=== PATIENT | female | born 1935 | race Caucasian/White ===

== ENCOUNTER 2017-01-17 18:05 | Inpatient (IN) | payer MEDICARE, OTHER ==
[2017-01-17 18:05] VITALS: BMI 20.8
[2017-01-17] MEDS ORDERED: (Novolin R) Insulin Human Regular 100 units/ml vial IV STA (19:17)
[2017-01-17 19:24] LABS: BASO # 0.1 K/uL (0.0-0.2); BASO % 2.1 % (0.0-2.0); EOS # 0.1 K/uL (0.0-0.7); EOS % 2.5 % (0.0-4.0); LYMPH # 1.3 K/uL (1.0-4.3); LYMPH % 25.8 % (20.0-40.0); MEAN CORPUSCULAR HEMOGLOBIN 26.1 pg (27.0-31.0); MEAN CORPUSCULAR HGB CONC 32.5 g/dL (33.0-37.0); MEAN PLATELET VOLUME 7.7 fL (7.2-11.7); MONO # 0.3 K/uL (0.0-0.8); MONO % 6.5 % (0.0-10.0); NEUT # 3.1 K/uL (1.8-7.0); NEUT % 63.1 % (50.0-75.0); NRBC % 0.1 % (0.0-2.0); RBC 4.76 Mil/uL (3.80-5.20); RED CELL DISTRIBUTION WIDTH 14.7 % (11.5-14.5); WHITE BLOOD COUNT 4.9 K/uL (4.8-10.8)
[2017-01-17 19:27] LABS: HEMOGLOBIN 12.4 g/dL (11.0-16.0); MEAN CELL VOLUME 80.6 fL (81.0-99.0)
[2017-01-17] MEDS ORDERED: (Novolin R) Insulin Human Regular 100 units/ml vial ONE (19:33)
--- NOTE | 2017-01-17 19:36 | C.PDOC ---
History Of Present Illness 81 year old female [place] [facility] for a complaint of vague chest pain and vomiting. Patient has a Hx of CVA and is disoriented to person at baseline. Denies fever or SOB. Time Seen by Provider: 01/17/17 19:08 Chief Complaint (Nursing): Chest Pain History Per: Patient History/Exam Limitations: no limitations Onset/Duration Of Symptoms: Hrs Current Symptoms Are (Timing): Still Present Associated Symptoms: Nausea, Other (Vomiting) Modifying Factors: None Exacerbating Factors: None Alleviating Factors: None Recent travel outside of the [place]: No Past Medical History Reviewed: Historical Data, Nursing Documentation, Vital Signs Vital Signs: Last Vital Signs Temp 98.2 F 01/17/17 19:49 Pulse 121 H 01/17/17 19:49 Resp 16 01/17/17 19:49 BP 118/72 01/17/17 19:49 Pulse Ox 97 01/17/17 19:49 - Medical History PMH: Anxiety, Atrial Fibrillation, Depression, Diabetes, Fractures (Left Tibia) , Gastritis, HTN, Hypothyroidism, Seizures - [facility] Procedures INSERTION OF INFUSION DEV INTO R SUBCLAV VEIN, PERC APPROACH (12/08/14) REPOSITION RIGHT TIBIA, EXTERNAL APPROACH (11/04/14) Family History: States: Unknown Family Hx - Social History Hx Tobacco Use: No Hx Alcohol Use: No Hx Substance Use: No - Immunization History Hx Tetanus Toxoid Vaccination: No Hx Influenza Vaccination: No Hx Pneumococcal Vaccination: No Review Of Systems Constitutional: Negative for: Fever, Chills Cardiovascular: Positive for: Chest Pain Gastrointestinal: Positive for: Vomiting Physical Exam - Physical Exam Appears: Non-toxic, Other (Elderly, Pleasant, Smiling, Thin) Skin: Normal Color, Warm, Dry Head: Atraumatic, Normacephalic Eye(s): bilateral: Normal Inspection Oral Mucosa: Moist Chest: Symmetrical, No Tenderness Cardiovascular: Rhythm Regular Respiratory: Normal Breath Sounds, No Rales, No Rhonchi, No Wheezing Gastrointestinal/Abdominal: Soft, No Tenderness Extremity: Other (Contracted legs) Disoriented To: Person ED Course And Treatment - Laboratory Results Result Diagrams: 01/17/17 19:21 01/17/17 19:21 Lab Interpretation: Abnormal (elev glu, trop neg.) ECG: Interpreted By Me ECG Rhythm: Sinus Tachycardia ECG Interpretation: Abnormal Rate From EC O2 Sat by Pulse Oximetry: 97 Pulse Ox Interpretation: Normal - Radiology CXR: Interpreted by Me CXR Interpretation: Yes: Infiltrates (+LLL) Progress Note: EKG, blood work, CXR, and urinalysis ordered. Insulin administered. Dr. Love advised at 19:15 and 1999 Reevaluation Time: 20:02 Reassessment Condition: Improved Medical Decision Making Medical Decision Making: elev glu, ? LLL PNA, tachycardia with normal trop Disposition Doctor Will See Patient In The: Hospital Counseled Patient/Family Regarding: Studies Performed, Diagnosis - Disposition Disposition: HOSPITALIZED Disposition Time: 20:03 Condition: GOOD Forms: [facility] (Macedonian) - Clinical Impression Clinical Impression: Chest discomfort, Diabetes mellitus, insulin dependent (IDDM), uncontrolled, Pneumonia - Scribe Statement The provider has reviewed the documentation as recorded by the Scribbridgette Dailey All medical record entries made by the Scribe were at my direction and personally dictated by me. I have reviewed the chart and agree that the record accurately reflects my personal performance of the history, physical exam, medical decision making, and the department course for this patient. I have also personally directed, reviewed, and agree with the discharge instructions and disposition.
[2017-01-17 19:46] LABS: ALB/GLOB RATIO 0.8 (1.0-2.1); ALBUMIN 3.9 g/dL (3.5-5.0); ALT/SGPT 45 U/L (9-52); AST/SGOT 26 U/L (14-36); BLOOD UREA NITROGEN 20 mg/dL (7-17); CALCIUM 8.7 mg/dl (8.6-10.4); GFR AFRICAN-AMERICAN > 60; GFR NON-AFRICAN AMERICAN > 60
[2017-01-17 19:50] LABS: B-TYPE NATRIURETIC PEPTIDE 1930 pg/mL (0-900)
[2017-01-17] MEDS ORDERED: cefTRIAXone IV 1 gm in Dextros 50 ML IV ONE (19:57)
[2017-01-17] MEDS ORDERED: Azithromycin 500 MG in Sodium Chloride 0.9% 250 ML IV STA (19:57)
[2017-01-17] MEDS ORDERED: cefTRIAXone IV 1 gm in Dextros 50 ML IVPB ONE (21:00)
[2017-01-17 22:12] LABS: URINE BACTERIA MANY (<OCC); URINE BILIRUBIN NEGATIVE (NEGATIVE); URINE BLOOD 2+ (NEGATIVE); URINE CLARITY Turbid (Clear); URINE COLOR Yellow (YELLOW); URINE GLUCOSE (UA) 3+ mg/dL (Normal); URINE LEUKOCYTE ESTERASE 2+ Leu/uL (Negative); URINE NITRATE NEGATIVE (NEGATIVE); URINE PROTEIN 2+ mg/dL (NEGATIVE); URINE UROBILINOGEN NORMAL mg/dL (0.2-1.0)
[2017-01-17] MEDS: (Novolin R) Insulin Human Regular 100 units/ml vial SC SCH (23:30)
[2017-01-17] MEDS: Sodium Chloride 0.9% 1,000 ML IV SCH (23:55)
[2017-01-18] MEDS: Levothyroxine 25 MCG TAB PO SCH (05:41)
[2017-01-18] MEDS: (Novolin R) Insulin Human Regular 100 units/ml vial SC SCH ×4 (08:02→23:43)
--- NOTE | 2017-01-18 08:10 | RAD ---
PROCEDURE: CHEST RADIOGRAPH, 1 VIEW HISTORY: Shortness of breath COMPARISON: 09/23/2015 FINDINGS: LUNGS: Mild patchy increased markings at the left lung base. Clinical correlation. Diffuse chronic interstitial lung markings. Mild nodularity again noted at the lateral aspect of the right midlung zone. Right hilar prominence. Biapical pleural thickening. Right paratracheal prominence may represent prominent vasculature. PLEURA: As above. CARDIOVASCULAR: Calcification at the aortic knob. OSSEOUS STRUCTURES: Rib deformities bilaterally. VISUALIZED UPPER ABDOMEN: Prominent vasculature. Normal. OTHER FINDINGS: None. IMPRESSION: Mild patchy increased markings at the left lung base. Clinical correlation. Diffuse chronic interstitial lung markings. Mild nodularity again noted at the lateral aspect of the right midlung zone. Right hilar prominence. Biapical pleural thickening. Right paratracheal prominence may represent prominent vasculature.
[2017-01-18] MEDS: (Lantus) Insulin Glargine, Recombinant SC SCH ×2 (10:06→17:00)
[2017-01-18] MEDS: Enoxaparin 40 mg Syringe SC SCH ×2 (10:08→12:48)
[2017-01-18] MEDS: Azithromycin 500 MG in Sodium Chloride 0.9% 250 ML IVPB SCH (12:49)
[2017-01-18] MEDS: Sodium Chloride 0.9% 1,000 ML IV SCH (14:50)
[2017-01-18] MEDS ORDERED: Levalbuterol 0.63 MG/3 ML Inhal Soln UD INH ONE (15:40)
[2017-01-18] MEDS ORDERED: Etomidate 20 mg/10ml Inj IV ONE (16:13)
[2017-01-18] MEDS ORDERED: Succinylcholine Chloride 20 mg/ml Syr (5 ml) IV STA (16:14)
--- NOTE | 2017-01-18 16:14 | RAD ---
HISTORY: chest june COMPARISON: 01/17/2017 FINDINGS: LUNGS: Chronic interstitial lung disease suggested in overall diffuse interstitial markings diffusely increased. No consolidation PLEURA: No significant pleural effusion identified, no pneumothorax apparent. CARDIOVASCULAR: Mild cardiomegaly. Right hilar and right peritracheal soft tissues blending overall increased - probably in part technical given the less conspicuous appearance on yesterday's exam Thoracic aortic calcifications with tortuosity an similar OSSEOUS STRUCTURES: Generalized osteopenia. Right glenohumeral joint deformity prior right joint here excluded on prior study VISUALIZED UPPER ABDOMEN: Normal. OTHER FINDINGS: None. IMPRESSION: Chronic interstitial lung disease -overall interstitial markings increased since recent exam Interval increased interstitial pulmonary edema and/or changes due to technical differences. No dense consolidation Right paratracheal / blending right hilar soft tissue fullness -accentuated since yesterday's exam - accentuation attributed to technical differences. . Underlying pathology here still possible. No CT chest for correlation noted Right shoulder deformity/arthrosis
[2017-01-18 16:22] LABS: BASO # 0.2 K/uL (0.0-0.2); BASO % 1.1 % (0.0-2.0); EOS # 0.4 K/uL (0.0-0.7); HEMOGLOBIN 12.5 g/dL (11.0-16.0); LYMPH # 11.6 K/uL (1.0-4.3); LYMPH % 55.4 % (20.0-40.0); MEAN CELL VOLUME 81.1 fL (81.0-99.0); MEAN PLATELET VOLUME 7.7 fL (7.2-11.7); MONO # 1.3 K/uL (0.0-0.8); NEUT # 7.5 K/uL (1.8-7.0); NEUT % 35.5 % (50.0-75.0); NRBC % 0.1 % (0.0-2.0); RBC 4.8 Mil/uL (3.80-5.20); RED CELL DISTRIBUTION WIDTH 15.2 % (11.5-14.5)
--- NOTE | 2017-01-18 16:49 | PCM.ANES ---
Anesthesia Emergent Intubation - Diagnosis Working Diagnosis:: pulmonary edema - Consult Reason for Consult:: intubation - Intubation Attempts Previous Number of Intubation Attempts:: 0 By:: Daron Alba - Pre-Intubation Vital Signs Blood Pressure: 177/106 Heart Rate: 110 O2 Sat: 82 Oxygen Delivery Method: Non-Rebreather Intubation Meds Given: Etomidate - Airway Management Oropharyngeal Area Suctioned: Yes Inhalation: No Rapid Sequence: Yes Cricoid Pressure: Yes Possible Aspiration: No - Method of Intubation Intubation Method: Oral ETT ETT Size: 7.0 Lipline@: 21 Easy: No (atraumatic) Atramatic: Yes - Intubation Devices Brooks Blade Size Used: 3 Alysha Forcepts Used: No Veteran Scope Used: No Fiber Optic Scope: No - Placement Confirmation Breath Sounds Present & Equal Bilaterally: Yes Gurgling Sounds Not Audible at Epigastrum: Yes Positive EtCO2: Yes Portable CXR: No - Post-Intubation Vital Signs Blood Pressure: 150/102 Heart Rate: 102 Respiratory Rate: 12 O2 Sat: 99 FIO2: 1
[2017-01-18 16:55] LABS: ABG ALLEN TEST POS; ARTERIAL BLOOD GAS HCO3 23.1 mmol/L (21-28); ARTERIAL BLOOD GAS O2 SAT 99.5 % (95-98); ARTERIAL BLOOD GAS PCO2 45 mm/Hg (35-45); ARTERIAL BLOOD GAS PH 7.33 (7.35-7.45); ARTERIAL BLOOD GAS PO2 204 mm/Hg (80-100); ARTERIAL BLOOD GAS TCO2 25.1 mmol/L (22-28)
[2017-01-18 16:58] LABS: ALBUMIN 3.8 g/dL (3.5-5.0); ALT/SGPT 39 U/L (9-52); AST/SGOT 71 U/L (14-36); BLOOD UREA NITROGEN 20 mg/dL (7-17); CALCIUM 8.1 mg/dl (8.6-10.4); GFR AFRICAN-AMERICAN > 60; GFR NON-AFRICAN AMERICAN > 60; HDL CHOLESTEROL 72 mg/dL (30-70); MAGNESIUM 1.8 mg/dL (1.6-2.3)
[2017-01-18] MEDS: Propofol 10 mg/ml 1,000 MG/100 ML VIAL IV PRN (17:00)
[2017-01-18] MEDS ORDERED: Aztreonam 2 GM in Sodium Chloride 0.9% 100 ML IVPB ONE (17:00)
--- NOTE | 2017-01-18 17:02 | RAD ---
HISTORY: ET tube placmeent COMPARISON: 01/18/2017 at 1552 hours FINDINGS: LUNGS: The diffuse chronic interstitial lung disease is renoted prior study had suggested probable interval increased interstitial pulmonary edema. Since this prior exam 01/18/2017 1552 hours interval coalescing airspace opacity right upper lobe lab Ing infiltrate and/or atelectasis here suggested PLEURA: No significant pleural effusion identified, no pneumothorax apparent. CARDIOVASCULAR: Cardiomegaly almost to the right hilar and right paratracheal soft tissues renoted OSSEOUS STRUCTURES: Generalized osteopenia. Deformed right and left rib fractures -chronic appearing VISUALIZED UPPER ABDOMEN: Normal. OTHER FINDINGS: Interval insertion of an endotracheal tube -tip 2-3 cm cephalad to the iwona IMPRESSION: Interval insertion endotracheal tube - tip satisfactory Chronic interstitial lung markings for/disease ; element of pulmonary interstitial edema suspect for interval coalescing airspace opacity- developing infiltrate and/or atelectasis right upper lobe suggested.
[2017-01-18 17:11] LABS: LDL CHOLESTEROL 81 mg/dL (0-129)
[2017-01-18 17:19] LABS: B-TYPE NATRIURETIC PEPTIDE 2310 pg/mL (0-900); CK-MB 1.08 ng/mL (0.0-3.38)
[2017-01-18] MEDS ORDERED: Propofol 10 mg/ml Inj (20 ML) IV ONE (17:26)
[2017-01-18] MEDS ORDERED: Propofol 10 mg/ml Inj (20 ML) ONE (17:26)
--- NOTE | 2017-01-18 17:53 | PCM.RRT ---
METAL SPRAYER Nurses Assessment - Situation Date: 01/18/17 Time METAL SPRAYER was called: 15:31 METAL SPRAYER Responder Arrival Time:: 15:31 METAL SPRAYER Location:: 3T Med/Oncology METAL SPRAYER Reason for Call: O2 Saturation below 90%, Looks Sicker METAL SPRAYER Called By: RN - IV IV Inserted during METAL SPRAYER?: No - Respiratory METAL SPRAYER Delivery Method: Nasal Cannula @L/min, Non Rebreather @%, Intubated Received Nebulizer Treatments: Yes Was the Patient Ventilated with Bag/Mask 100% O2?: Yes Secretions Suctioned?: Yes Was the Patient Intubated?: Yes Was the Patient Placed on a Ventilator?: Yes - Ventilator Settings Mode: PRVC Ventilator Respiratory Rate Settin Ventilator Tidal Volume Settin PEEP/CPAP (cm H2O): 5 SAO2 %: 100 FIO2 (% Oxygen): 70 - Stat Labs Ordered METAL SPRAYER Stat Labs Ordered: TROPONIN, LACTIC ACID, ABG CPR started during METAL SPRAYER?: No - [place] Coma Scale Coma Scale Eye Opening: Spontaneous Coma Scale Motor: Obeys Commands Movement Coma Scale Verbal: Oriented Coma Scale Total: 15 - Recommendations 5) METAL SPRAYER Level of Care Recommendations: Transfer to ICU Notifications: Attending Physician, Consultations I.Reason for METAL SPRAYER - A) Acute Change in Patient: (Select all that apply): Acute change in SpO2 less Subjective: METAL SPRAYER note Patient was noted to be saturating in 80s on room air refusing nasal cannula. breathing treatment, patient saturated well in mid to high 90s. Patient had chest xray. Ocuch placed after IV Lasix. Ceftriaxone discontinued 2gm Avelox administered. IVF NS @100cc/hr discontinued. Patient started desaturating again. Patient appeared diaphoretic, continued to complain of chest pain and difficulty breathing. Patient was intubated on etomidate and anesthesia inserted the Endotracheal tube. chest xray confirmed placement. Patient transferred to ICU - Neurological Status (Select all that apply): Alert, Responsive - Respiratory Oxygen Delivery Method: Nasal Cannula @L/min, Intubated - Constitutional Appears: In Acute Distress Additional Comments: diaphoretic - Head Head Exam: NORMAL INSPECTION - Eyes Eye Exam: EOMI, Normal appearance - Respiratory Exam Respiratory Exam: Accessory Muscle Use, Prolonged Expiratory Phase, Rales, Respiratory Distress - Cardiovascular Exam Cardiovascular Exam: Tachycardia, REGULAR RHYTHM, +S1, +S2 Plan - Assessment of Findings&Treatment Plan f/u abg, lactate f/u echo f/u CECILIO q6H f/u Dr. Crowell cardiology consult IVF discontinued continue lasix on propofol drip for sedation
[2017-01-18] MEDS ORDERED: Aztreonam 2 GM in Sodium Chloride 0.9% 100 ML IVPB SCH (18:15)
--- NOTE | 2017-01-18 19:13 | PCM.PROC ---
Procedures Attestation:: I certify that I have explained the specified Operation(s) or Procedure(s), risks, benefits and reasonable alternatives to the Patient and/or other person responsible. The opportunity was given to ask questions and all questions answered - Central Line Placement Left Internal Jugular Triple Lumen Catheter Aseptic technique was employed throughout the procedure: Hand Hygiene done prior to procedure, Full sterile barriers (mask, hair cover, sterile gown, sterile gloves), Full body sterile drape, Chloraprep Antiseptic: 30 second prep for IJ or SC sites Pt. Placed on Pulse Ox Monitor: Yes Central Line Prep: Chlorhexidine-Alcohol Combination Local Anesthesia Used: Lidocaine 1% Amount of Anesthesia Used (mls): 3 Ultrasound Used for Placement: Yes Central Line Lumen Inserted: triple Central Line Length: 20 cm Post Procedure: Sutured in Place, Good Blood Return, All Ports Aspirated, Flushed, Capped, Sterile Dressing Applied Secured by: Suture Post procedure dressing: Clear vapor permeable, Chlorhexidine disc (Biopatch) Post Procedure X-Ray: Yes Patient Tolerated Procedure: Well, No Complications Immediate Complications: None
--- NOTE | 2017-01-18 19:57 | CP.PCM.CON ---
<Leo Amos - Last Filed: 01/18/17 19:48> History of Present Illness - History of Present Illness History of Present Illness: PGY1 ICU Consult Note for Dr. Alfaro History from chart review Patient is an 81 year old that was brought to the hospital last night for a complaint of vague chest pain and vomiting. Patient was a [employer] this afternoon due to respiratory distress. Per [employer] SHOES SEW[employer] note, she was saturating in the 80s on room air, refusing to wear nasal cannula. After breathing treatments, patient continued to have difficulty breathing. She began to desaturating and appeared diaphoretic. She was intubated on the floor and transferred to ICU. ROS unattainable. PMH: Anxiety, afib, depression, seizure, hypothyroidism, HTN, hx of multiple falls (with SDH) and hx of CVA PSH: Right Hip repair; Crainiotomy (2 years ago) Social: from [facility] Allergies: Penicillin, Shellfish Review of Systems - Review of Systems Systems not reviewed;Unavailable: Intubated Past Patient History - Past Medical History & Family History Past Medical History?: Yes - Past Social History Smoking Status: Never Smoked - CARDIAC Hx Cardiac Disorders: Yes (A.Fib) Hx Hypertension: Yes - PULMONARY Hx Respiratory Disorders: No - NEUROLOGICAL Hx Seizures: Yes - HEENT Hx HEENT Problems: No - RENAL Hx Chronic Kidney Disease: No - ENDOCRINE/METABOLIC Hx Diabetes Mellitus Type 2: Yes Hx Hypothyroidism: Yes - HEMATOLOGICAL/ONCOLOGICAL Hx Blood Disorders: No - INTEGUMENTARY Hx Dermatological Problems: No - MUSCULOSKELETAL/RHEUMATOLOGICAL Hx Falls: Yes Hx Fractures: Yes (Left Tibia) - GASTROINTESTINAL Hx Gastritis: Yes - GENITOURINARY/GYNECOLOGICAL Hx Genitourinary Disorders: No - PSYCHIATRIC Hx Anxiety: Yes Hx Depression: Yes Hx Substance Use: No - SURGICAL HISTORY Hx Surgeries: Yes Other/Comment: Effusion/fx of lt knee. Subdural hematoma Crainiotomy 2 years ago. hip repair - ANESTHESIA Hx Anesthesia: Yes Hx Anesthesia Reactions: No Hx Malignant Hyperthermia: No Meds Allergies/Adverse Reactions: Allergies Allergy/AdvReac Type Severity Reaction Status Date / Time Penicillins Allergy Verified 01/17/17 18:32 shellfish derived Allergy Verified 01/17/17 18:32 tuna Allergy Uncoded 01/17/17 18:32 - Medications Medications: Current Medications Acetaminophen (Tylenol 325mg Tab) 650 mg PO Q6 PRN PRN Reason: Pain, moderate (4-7) Last Admin: 01/18/17 15:23 Dose: 650 mg Aspirin (Ecotrin) 81 mg PO DAILY [facility] Last Admin: 01/18/17 10:07 Dose: 81 mg Calcium Carbonate (Oscal) 500 mg PO BID [facility] Last Admin: 01/18/17 10:08 Dose: 500 mg Diltiazem HCl (Cardizem) 30 mg PO QID [facility] Last Admin: 01/18/17 19:34 Dose: 30 mg Enoxaparin Sodium (Lovenox) 40 mg SC DAILY [facility] Last Admin: 01/18/17 12:48 Dose: Not Given Folic Acid (Folic Acid) 1 mg PO DAILY [facility] Last Admin: 01/18/17 10:08 Dose: 1 mg Hydrochlorothiazide (Microzide) 12.5 mg PO DAILY [facility] Last Admin: 01/18/17 10:08 Dose: 12.5 mg Azithromycin 500 mg/ Sodium (Chloride) 250 mls @ 250 mls/hr IVPB DAILY [facility] Last Admin: 01/18/17 12:49 Dose: 250 mls/hr Propofol (Diprivan) 1,000 mg in 100 mls @ 1.238 mls/hr IV .Q24H PRN; Protocol; 5 MCG/KG/MIN PRN Reason: TITRATE PER MD ORDER Last Titration: 01/18/17 17:05 Dose: 27.45 mcg/kg/min, 6.8 mls/hr Aztreonam 2 gm/ Sodium (Chloride) 100 mls @ 200 mls/hr IVPB Q8H [facility] Clindamycin Phosphate 600 mg/ (Sodium Chloride) 54 mls @ 100 mls/hr IVPB Q8 [facility] Insulin Glargine (Lantus) 10 unit SC BIDAC [facility] Last Admin: 01/18/17 10:06 Dose: 10 units Insulin Human Regular (Novolin R) 0 unit SC ACHS [facility] PRN Reason: Protocol Last Admin: 01/18/17 12:45 Dose: 2 unit Ipratropium [place] (Atrovent) 0.5 mg IH RQ6 PRN PRN Reason: Shortness of Breath Levetiracetam (Keppra) 750 mg PO BID [facility] Last Admin: 01/18/17 19:34 Dose: 750 mg Levothyroxine Sodium (Synthroid) 25 mcg PO DAILY@0630 [facility] Last Admin: 12/12/17 05:41 Dose: 25 mcg Losartan Potassium (Cozaar) 100 mg PO DAILY [facility] Last Admin: 01/18/17 10:17 Dose: 100 mg Magnesium Hydroxide (Milk Of Magnesia) 30 ml PO DAILY PRN PRN Reason: Constipation Metoprolol Tartrate (Lopressor) 75 mg PO Q8 [facility] Last Admin: 01/18/17 14:11 Dose: 75 mg Pantoprazole Sodium (Protonix Inj) 40 mg IVP DAILY [facility] Rosuvastatin Calcium (Crestor) 20 mg PO HS [facility] Saccharomyces Boulardii (Florastor) 250 mg PO BID [facility] Physical Exam - Constitutional Appears: Cachectic, Other (contracted) - Respiratory Exam Respiratory Exam: NORMAL BREATHING PATTERN. absent: Accessory Muscle Use Additional comments: intubated - Cardiovascular Exam Cardiovascular Exam: REGULAR RHYTHM - GI/Abdominal Exam GI & Abdominal Exam: Soft. absent: Distended, Firm, Guarding, Rigid, Tenderness - Extremities Exam Extremities exam: Positive for: pedal pulses present. Negative for: calf tenderness - Neurological Exam Additional comments: intubated/sedated - Psychiatric Exam Additional comments: intubated/sedated - Skin Skin Exam: Dry, Warm Results - Vital Signs Recent Vital Signs: Last Vital Signs Temp 96.5 F L 01/18/17 17:00 Pulse 77 01/18/17 18:32 Resp 16 01/18/17 18:32 BP 125/71 01/18/17 18:32 Pulse Ox 100 01/18/17 18:32 - Labs Result Diagrams: 01/18/17 16:17 01/18/17 16:17 Labs: Laboratory Results - last 24 hr 01/17/17 01/17/17 01/17/17 19:21 20:45 21:58 WBC RBC Hgb Hct MCV MCH MCHC RDW Plt Count MPV Neut % (Auto) Lymph % (Auto) Gaines % (Auto) Eos % (Auto) Baso % (Auto) Neut # Lymph # Gaines # Eos # Baso # D-Dimer, Quantitative Puncture Site pCO2 pO2 HCO3 ABG pH ABG Total CO2 ABG O2 Saturation ABG Base Excess Singh Test ABG Potassium A-a O2 Difference Respiratory Index Glucose Lactate Vent Mode Mechanical Rate FiO2 Tidal Volume PEEP Sodium Potassium Chloride Carbon Dioxide Anion Gap BUN Creatinine Est GFR ( Amer) Est GFR (Non-Af Amer) POC Glucose (mg/dL) 200 H Random Glucose Hemoglobin A1c Lactic Acid Calcium Phosphorus Magnesium Total Bilirubin AST ALT Alkaline Phosphatase Total Creatine Kinase CK-MB (Mass) Troponin I 0.0170 NT-Pro-B Natriuret Pep 1930 H Total Protein Albumin Globulin Albumin/Globulin Ratio Triglycerides Cholesterol LDL Cholesterol Direct HDL Cholesterol Free T4 TSH 3rd Generation Arterial Blood Potassium Urine Color Yellow Urine Clarity Turbid Urine pH 5.0 Ur Specific [place] 1.023 Urine Protein 2+ H Urine Glucose (UA) 3+ H Urine Ketones Negative Urine Blood 2+ H Urine Nitrate Negative Urine Bilirubin Negative Urine Urobilinogen Normal Ur Leukocyte Esterase 2+ H Urine WBC (Auto) 554 H Urine RBC (Auto) 477 H Urine Bacteria Many H 01/18/17 01/18/17 01/18/17 07:05 11:07 15:50 WBC RBC Hgb Hct MCV MCH MCHC RDW Plt Count MPV Neut % (Auto) Lymph % (Auto) Gaines % (Auto) Eos % (Auto) Baso % (Auto) Neut # Lymph # Gaines # Eos # Baso # D-Dimer, Quantitative Puncture Site pCO2 pO2 HCO3 ABG pH ABG Total CO2 ABG O2 Saturation ABG Base Excess Singh Test ABG Potassium A-a O2 Difference Respiratory Index Glucose Lactate Vent Mode Mechanical Rate FiO2 Tidal Volume PEEP Sodium Potassium Chloride Carbon Dioxide Anion Gap BUN Creatinine Est GFR ( Amer) Est GFR (Non-Af Amer) POC Glucose (mg/dL) 71 293 H 304 H Random Glucose Hemoglobin A1c Lactic Acid Calcium Phosphorus Magnesium Total Bilirubin AST ALT Alkaline Phosphatase Total Creatine Kinase CK-MB (Mass) Troponin I NT-Pro-B Natriuret Pep Total Protein Albumin Globulin Albumin/Globulin Ratio Triglycerides Cholesterol LDL Cholesterol Direct HDL Cholesterol Free T4 TSH 3rd Generation Arterial Blood Potassium Urine Color Urine Clarity Urine pH Ur Specific [place] Urine Protein Urine Glucose (UA) Urine Ketones Urine Blood Urine Nitrate Urine Bilirubin Urine Urobilinogen Ur Leukocyte Esterase Urine WBC (Auto) Urine RBC (Auto) Urine Bacteria 01/18/17 01/18/17 01/18/17 16:17 16:17 16:17 WBC 21.0 H D RBC 4.80 Hgb 12.5 Hct 38.9 MCV 81.1 MCH 26.0 L MCHC 32.0 L RDW 15.2 H Plt Count 453 H D MPV 7.7 Neut % (Auto) 35.5 L Lymph % (Auto) 55.4 H Gaines % (Auto) 6.0 Eos % (Auto) 2.0 Baso % (Auto) 1.1 Neut # 7.5 H Lymph # 11.6 H Gaines # 1.3 H Eos # 0.4 Baso # 0.2 D-Dimer, Quantitative Puncture Site pCO2 pO2 HCO3 ABG pH ABG Total CO2 ABG O2 Saturation ABG Base Excess Singh Test ABG Potassium A-a O2 Difference Respiratory Index Glucose Lactate Vent Mode Mechanical Rate FiO2 Tidal Volume PEEP Sodium 135 Potassium 4.6 Chloride 103 Carbon Dioxide 24 Anion Gap 13 BUN 20 H Creatinine 0.5 L Est GFR ( Amer) > 60 Est GFR (Non-Af Amer) > 60 POC Glucose (mg/dL) Random Glucose 339 H Hemoglobin A1c 9.8 H Lactic Acid Calcium 8.1 L Phosphorus 4.0 Magnesium 1.8 Total Bilirubin 0.4 AST 71 H D ALT 39 Alkaline Phosphatase 141 H Total Creatine Kinase 29 L CK-MB (Mass) 1.08 Troponin I 0.0270 NT-Pro-B Natriuret Pep 2310 H Total Protein 7.7 Albumin 3.8 Globulin 3.9 Albumin/Globulin Ratio 1.0 Triglycerides 130 Cholesterol 196 LDL Cholesterol Direct 81 HDL Cholesterol 72 H Free T4 TSH 3rd Generation 18.60 H Arterial Blood Potassium Urine Color Urine Clarity Urine pH Ur Specific [place] Urine Protein Urine Glucose (UA) Urine Ketones Urine Blood Urine Nitrate Urine Bilirubin Urine Urobilinogen Ur Leukocyte Esterase Urine WBC (Auto) Urine RBC (Auto) Urine Bacteria 01/18/17 01/18/17 01/18/17 16:17 16:17 16:17 WBC RBC Hgb Hct MCV MCH MCHC RDW Plt Count MPV Neut % (Auto) Lymph % (Auto) Gaines % (Auto) Eos % (Auto) Baso % (Auto) Neut # Lymph # Gaines # Eos # Baso # D-Dimer, Quantitative 650 H Puncture Site pCO2 pO2 HCO3 ABG pH ABG Total CO2 ABG O2 Saturation ABG Base Excess Singh Test ABG Potassium A-a O2 Difference Respiratory Index Glucose Lactate Vent Mode Mechanical Rate FiO2 Tidal Volume PEEP Sodium Potassium Chloride Carbon Dioxide Anion Gap BUN Creatinine Est GFR ( Amer) Est GFR (Non-Af Amer) POC Glucose (mg/dL) Random Glucose Hemoglobin A1c Lactic Acid 2.4 H Calcium Phosphorus Magnesium Total Bilirubin AST ALT Alkaline Phosphatase Total Creatine Kinase CK-MB (Mass) Troponin I NT-Pro-B Natriuret Pep Total Protein Albumin Globulin Albumin/Globulin Ratio Triglycerides Cholesterol LDL Cholesterol Direct HDL Cholesterol Free T4 1.41 TSH 3rd Generation Arterial Blood Potassium Urine Color Urine Clarity Urine pH Ur Specific [place] Urine Protein Urine Glucose (UA) Urine Ketones Urine Blood Urine Nitrate Urine Bilirubin Urine Urobilinogen Ur Leukocyte Esterase Urine WBC (Auto) Urine RBC (Auto) Urine Bacteria 01/18/17 01/18/17 16:50 19:08 WBC RBC Hgb Hct MCV MCH MCHC RDW Plt Count MPV Neut % (Auto) Lymph % (Auto) Gaines % (Auto) Eos % (Auto) Baso % (Auto) Neut # Lymph # Gaines # Eos # Baso # D-Dimer, Quantitative Puncture Site Rradial pCO2 45 pO2 204 H HCO3 23.1 ABG pH 7.33 L ABG Total CO2 25.1 ABG O2 Saturation 99.5 H ABG Base Excess -2.4 L Sinhg Test Pos ABG Potassium 4.1 A-a O2 Difference 239.0 Respiratory Index 1.2 Glucose 386 H Lactate 1.8 Vent Mode Prvc Mechanical Rate 16 FiO2 70.0 Tidal Volume 450 PEEP 5 Sodium 135.0 Potassium Chloride 105.0 Carbon Dioxide Anion Gap BUN Creatinine Est GFR ( Amer) Est GFR (Non-Af Amer) POC Glucose (mg/dL) 341 H Random Glucose Hemoglobin A1c Lactic Acid Calcium Phosphorus Magnesium Total Bilirubin AST ALT Alkaline Phosphatase Total Creatine Kinase CK-MB (Mass) Troponin I NT-Pro-B Natriuret Pep Total Protein Albumin Globulin Albumin/Globulin Ratio Triglycerides Cholesterol LDL Cholesterol Direct HDL Cholesterol Free T4 TSH 3rd Generation Arterial Blood Potassium 4.1 Urine Color Urine Clarity Urine pH Ur Specific [place] Urine Protein Urine Glucose (UA) Urine Ketones Urine Blood Urine Nitrate Urine Bilirubin Urine Urobilinogen Ur Leukocyte Esterase Urine WBC (Auto) Urine RBC (Auto) Urine Bacteria Assessment & Plan - Assessment and Plan (Free Text) Assessment: Patient is an 81 year old female presenting to the hospital with vague chest pain that needed to be intubated due to respiratory failure from hypercapnia. Patient was transferred to the ICU for further evaluation. Plan: Pulmonary: Intubated CXR 01/18/17 - Chronic interstitial lung disease -overall interstitial markings increased since recent exam. Interval increased interstitial pulmonary edema and /or changes due to technical differences. No dense consolidation. Right paratracheal / blending right hilar soft tissue fullness -accentuated since yesterday's exam - accentuation attributed to technical differences. Underlying pathology here still possible. No CT chest for correlation noted. Right shoulder deformity/arthrosis. Post intubation ABG - pCO2 45, pO2 204, HCO3 23.1, pH 7.33 WBC 21 Atrovent 0.5mg IH q6h PRN Azithromycin 500mg IVPB daily Aztreonam 2gm IVPB q8h Clindamycin 600mg IVPB q8h CV: Cardio - Dr. Crowell consulted, help appreciated Trop 0.027 Pro-BNP 2310 Diltiazem 30mg PO qid Crestor 20mg PO HS Aspirin 81mg PO daily Metoprolol Tartrate 75mg PO q8h Losartan 100mg PO daily HCTZ 12.5mg PO daily Neuro: Propofol drip Keppra 750mg PO BID Endo: DM2 Lantus 10 units SC BIDAC ISS Synthroid 25mcg PO daily Prophylactic Care: Lovenox 40mg SC daily Protonix 40mg IVP daily Blorastor 250mg PO BID Case discussed with Dr. Dominic Bailey Bette PGY1 <Malachi Alfaro - Last Filed: 01/19/17 17:45> Meds - Medications Medications: Current Medications Acetaminophen (Tylenol 325mg Tab) 650 mg PO Q6 PRN PRN Reason: Pain, moderate (4-7) Last Admin: 01/18/17 15:23 Dose: 650 mg Aspirin (Ecotrin) 81 mg PO DAILY [facility] Last Admin: 01/19/17 09:57 Dose: 81 mg Calcium Carbonate (Oscal) 500 mg PO BID [facility] Last Admin: 01/19/17 17:23 Dose: 500 mg Diltiazem HCl (Cardizem) 30 mg PO QID [facility] Last Admin: 01/19/17 17:23 Dose: 30 mg Enoxaparin Sodium (Lovenox) 40 mg SC DAILY [facility] Last Admin: 01/19/17 09:29 Dose: 40 mg Folic Acid (Folic Acid) 1 mg PO DAILY [facility] Last Admin: 01/19/17 09:29 Dose: 1 mg Hydrochlorothiazide (Microzide) 12.5 mg PO DAILY [facility] Last Admin: 01/19/17 09:29 Dose: 12.5 mg Azithromycin 500 mg/ Sodium (Chloride) 250 mls @ 250 mls/hr IVPB DAILY [facility] Last Admin: 01/19/17 09:59 Dose: 250 mls/hr Propofol (Diprivan) 1,000 mg in 100 mls @ 1.238 mls/hr IV .Q24H PRN; Protocol; 5 MCG/KG/MIN PRN Reason: TITRATE PER MD ORDER Last Admin: 01/19/17 05:42 Dose: 10.9 mcg/kg/min, 2.7 mls/hr Aztreonam 2 gm/ Sodium (Chloride) 100 mls @ 200 mls/hr IVPB Q8H [facility] Last Admin: 01/19/17 11:25 Dose: 200 mls/hr Clindamycin Phosphate 600 mg/ (Sodium Chloride) 54 mls @ 100 mls/hr IVPB Q8 [facility] Last Admin: 01/19/17 13:12 Dose: 100 mls/hr Insulin Glargine (Lantus) 10 unit SC BIDAC [facility] Last Admin: 01/19/17 07:50 Dose: Not Given Insulin Human Regular (Novolin R) 0 unit SC Q6 [facility] PRN Reason: Protocol Last Admin: 01/19/17 12:07 Dose: 4 unit Ipratropium [place] (Atrovent) 0.5 mg IH RQ6 PRN PRN Reason: Shortness of Breath Levetiracetam (Keppra) 750 mg PO BID [facility] Last Admin: 01/19/17 17:23 Dose: 750 mg Levothyroxine Sodium (Synthroid) 25 mcg PO DAILY@0630 [facility] Last Admin: 01/19/17 06:33 Dose: 25 mcg Losartan Potassium (Cozaar) 100 mg PO DAILY [facility] Last Admin: 01/19/17 09:29 Dose: 100 mg Magnesium Hydroxide (Milk Of Magnesia) 30 ml PO DAILY PRN PRN Reason: Constipation Metoprolol Tartrate (Lopressor) 75 mg PO Q8 [facility] Last Admin: 01/19/17 13:13 Dose: Not Given Pantoprazole Sodium (Protonix Inj) 40 mg IVP DAILY [facility] Last Admin: 01/19/17 09:29 Dose: 40 mg Rosuvastatin Calcium (Crestor) 20 mg PO HS [facility] Last Admin: 01/18/17 21:15 Dose: 20 mg Saccharomyces Boulardii (Florastor) 250 mg PO BID [facility] Last Admin: 01/19/17 17:23 Dose: 250 mg Results - Vital Signs Recent Vital Signs: Last Vital Signs Temp 97.5 F L 01/19/17 16:00 Pulse 92 H 01/19/17 16:00 Resp 16 01/19/17 16:00 BP 113/65 01/19/17 15:49 Pulse Ox 100 01/19/17 16:00 - Labs Result Diagrams: 01/19/17 06:26 01/19/17 06:23 Labs: Laboratory Results - last 24 hr 01/18/17 01/18/17 01/18/17 16:17 19:08 22:29 WBC RBC Hgb Hct MCV MCH MCHC RDW Plt Count MPV Neut % (Auto) Lymph % (Auto) Gaines % (Auto) Eos % (Auto) Baso % (Auto) Neut # Lymph # Gaines # Eos # Baso # Puncture Site pCO2 pO2 HCO3 ABG pH ABG Total CO2 ABG O2 Saturation ABG Base Excess ABG Hemoglobin ABG Carboxyhemoglobin POC ABG HHb (Measured) ABG Methemoglobin Singh Test A-a O2 Difference Respiratory Index Hgb O2 Saturation Vent Mode Mechanical Rate FiO2 Tidal Volume PEEP Sodium Potassium Chloride Carbon Dioxide Anion Gap BUN Creatinine Est GFR ( Amer) Est GFR (Non-Af Amer) POC Glucose (mg/dL) 341 H Random Glucose Calcium Phosphorus Magnesium Total Bilirubin AST ALT Alkaline Phosphatase Total Creatine Kinase 26 L CK-MB (Mass) 0.96 Troponin I 0.0250 Total Protein Albumin Globulin Albumin/Globulin Ratio Procalcitonin TSH 3rd Generation 18.60 H 01/18/17 01/19/17 01/19/17 22:29 00:26 05:22 WBC RBC Hgb Hct MCV MCH MCHC RDW Plt Count MPV Neut % (Auto) Lymph % (Auto) Gaines % (Auto) Eos % (Auto) Baso % (Auto) Neut # Lymph # Gaines # Eos # Baso # Puncture Site R brac pCO2 25 L pO2 189 H HCO3 27.3 ABG pH 7.59 H ABG Total CO2 24.8 ABG O2 Saturation 99.0 H ABG Base Excess 3.0 ABG Hemoglobin 10.5 L ABG Carboxyhemoglobin 1.4 POC ABG HHb (Measured) 1.0 ABG Methemoglobin 1.5 Singh Test Na A-a O2 Difference 136.0 Respiratory Index 0.7 Hgb O2 Saturation 96.1 Vent Mode Prvc Mechanical Rate 16 FiO2 50.0 Tidal Volume 450 PEEP 5 Sodium Potassium Chloride Carbon Dioxide Anion Gap BUN Creatinine Est GFR ( Amer) Est GFR (Non-Af Amer) POC Glucose (mg/dL) 245 H Random Glucose Calcium Phosphorus Magnesium Total Bilirubin AST ALT Alkaline Phosphatase Total Creatine Kinase CK-MB (Mass) Troponin I Total Protein Albumin Globulin Albumin/Globulin Ratio Procalcitonin 0.06 L [facility] 3rd Generation 01/19/17 01/19/17 01/19/17 05:39 06:23 06:26 WBC 6.3 D RBC 3.74 L Hgb 9.9 L D Hct 29.6 L MCV 79.1 L D MCH 26.4 L MCHC 33.4 RDW 14.6 H Plt Count 168 D MPV 8.2 Neut % (Auto) 47.5 L Lymph % (Auto) 40.7 H Gaines % (Auto) 7.5 Eos % (Auto) 2.6 Baso % (Auto) 1.7 Neut # 3.0 Lymph # 2.5 Gaines # 0.5 Eos # 0.2 Baso # 0.1 Puncture Site pCO2 pO2 HCO3 ABG pH ABG Total CO2 ABG O2 Saturation ABG Base Excess ABG Hemoglobin ABG Carboxyhemoglobin POC ABG HHb (Measured) ABG Methemoglobin Singh Test A-a O2 Difference Respiratory Index Hgb O2 Saturation Vent Mode Mechanical Rate FiO2 Tidal Volume PEEP Sodium 135 Potassium 3.2 L Chloride 104 Carbon Dioxide 28 Anion Gap 7 L BUN 21 H Creatinine 0.5 L Est GFR ( Amer) > 60 Est GFR (Non-Af Amer) > 60 POC Glucose (mg/dL) 165 H Random Glucose 163 H Calcium 8.0 L Phosphorus 2.9 Magnesium 1.7 Total Bilirubin 0.4 AST 21 ALT 40 Alkaline Phosphatase 103 Total Creatine Kinase 25 L CK-MB (Mass) 0.72 Troponin I 0.0230 Total Protein 7.1 Albumin 2.9 L D Globulin 4.2 H Albumin/Globulin Ratio 0.7 L Procalcitonin TSH 3rd Generation 01/19/17 11:31 WBC RBC Hgb Hct MCV MCH MCHC RDW Plt Count MPV Neut % (Auto) Lymph % (Auto) Gaines % (Auto) Eos % (Auto) Baso % (Auto) Neut # Lymph # Gaines # Eos # Baso # Puncture Site pCO2 pO2 HCO3 ABG pH ABG Total CO2 ABG O2 Saturation ABG Base Excess ABG Hemoglobin ABG Carboxyhemoglobin POC ABG HHb (Measured) ABG Methemoglobin Singh Test A-a O2 Difference Respiratory Index Hgb O2 Saturation Vent Mode Mechanical Rate FiO2 Tidal Volume PEEP Sodium Potassium Chloride Carbon Dioxide Anion Gap BUN Creatinine Est GFR ( Amer) Est GFR (Non-Af Amer) POC Glucose (mg/dL) 319 H Random Glucose Calcium Phosphorus Magnesium Total Bilirubin AST ALT Alkaline Phosphatase Total Creatine Kinase CK-MB (Mass) Troponin I Total Protein Albumin Globulin Albumin/Globulin Ratio Procalcitonin TSH 3rd Generation Attending/Attestation - Attestation I have personally seen and examined this patient.: Yes I have fully participated in the care of the patient.: Yes I have reviewed all pertinent clinical information: Yes Notes (Text): patient seen and examined Patient transferred to intensive care unit after she got intubated for respiratory distress Chest x-ray consistent with possible pneumonia/CHF IV antibiotics Follow-up culture and sensitivity Cardiology evaluation Ventilator support IV sedation Triple-lumen catheter inserted Monitor intake and output
[2017-01-18] MEDS: Aztreonam 2 GM in Sodium Chloride 0.9% 100 ML IVPB SCH (20:00)
[2017-01-18] MEDS: Saccharomyces Boulardi 250 mg Cap PO SCH (20:04)
--- NOTE | 2017-01-18 20:43 | CARD ---
APPROVED REPORT EKG Measurement Heart [id number] <Conclusion> Sinus tachycardia Otherwise normal ECG
--- NOTE | 2017-01-18 20:59 | CARD ---
APPROVED REPORT EKG Measurement Heart [id number] <Conclusion> Sinus tachycardia Cannot rule out Anteroseptal infarct, age undetermined Abnormal ECG
--- NOTE | 2017-01-18 22:07 | CP.PCM.HP ---
History of Present Illness - History of Present Illness History of Present Illness: CC: generalized weakness, respiartory distress Patient is an 81 year old that was brought to the hospital last night for a complaint of vague chest pain and vomiting. 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 Per FRUIT CUTTER note, she was saturating in the 80s on room air, refusing to wear nasal cannula. After breathing treatments, patient continued to have difficulty breathing. She began to desaturating and appeared diaphoretic. She was intubated on the floor and transferred to ICU. ROS unattainable. pt has b/l infiltartes vs congestion, on MV with FiO2 of 100% PMH: Anxiety, afib, depression, seizure, hypothyroidism, HTN, hx of multiple falls (with SDH) and hx of CVA PSH: Right Hip repair; Crainiotomy (2 years ago) Social: from prison Allergies: Penicillin, Shellfish Present on Admission - Present on Admission Any Indicators Present on Admission: Yes Past Patient History - Past Medical History & Family History Past Medical History?: Yes - Past Social History Smoking Status: Never Smoked - CARDIAC Hx Cardiac Disorders: Yes (A.Fib) Hx Hypertension: Yes - PULMONARY Hx Respiratory Disorders: No - NEUROLOGICAL Hx Seizures: Yes - HEENT Hx HEENT Problems: No - RENAL Hx Chronic Kidney Disease: No - ENDOCRINE/METABOLIC Hx Diabetes Mellitus Type 2: Yes Hx Hypothyroidism: Yes - HEMATOLOGICAL/ONCOLOGICAL Hx Blood Disorders: No - INTEGUMENTARY Hx Dermatological Problems: No - MUSCULOSKELETAL/RHEUMATOLOGICAL Hx Falls: Yes Hx Fractures: Yes (Left Tibia) - GASTROINTESTINAL Hx Gastritis: Yes - GENITOURINARY/GYNECOLOGICAL Hx Genitourinary Disorders: No - PSYCHIATRIC Hx Anxiety: Yes Hx Depression: Yes Hx Substance Use: No - SURGICAL HISTORY Hx Surgeries: Yes Other/Comment: Effusion/fx of lt knee. Subdural hematoma Crainiotomy 2 years ago. hip repair - ANESTHESIA Hx Anesthesia: Yes Hx Anesthesia Reactions: No Hx Malignant Hyperthermia: No Meds Allergies/Adverse Reactions: Allergies Allergy/AdvReac Type Severity Reaction Status Date / Time Penicillins Allergy Verified 01/17/17 18:32 shellfish derived Allergy Verified 01/17/17 18:32 tuna Allergy Uncoded 01/17/17 18:32 Results - Vital Signs Recent Vital Signs: Last Vital Signs Temp 96.5 F L 01/18/17 17:00 Pulse 77 01/18/17 19:00 Resp 15 01/18/17 19:00 BP 127/70 01/18/17 19:00 Pulse Ox 100 01/18/17 19:00 - Labs Result Diagrams: 01/18/17 16:17 01/18/17 16:17 Labs: Laboratory Results - last 24 hr 01/17/17 01/18/17 01/18/17 21:58 07:05 11:07 WBC RBC Hgb Hct MCV MCH MCHC RDW Plt Count MPV Neut % (Auto) Lymph % (Auto) [place] % (Auto) Eos % (Auto) Baso % (Auto) Neut # Lymph # [place] # Eos # Baso # D-Dimer, Quantitative Puncture Site pCO2 pO2 HCO3 ABG pH ABG Total CO2 ABG O2 Saturation ABG Base Excess Singh Test ABG Potassium A-a O2 Difference Respiratory Index Glucose Lactate Vent Mode Mechanical Rate FiO2 Tidal Volume PEEP Sodium Potassium Chloride Carbon Dioxide Anion Gap BUN Creatinine Est GFR ( Amer) Est GFR (Non-Af Amer) POC Glucose (mg/dL) 71 293 H Random Glucose Hemoglobin A1c Lactic Acid Calcium Phosphorus Magnesium Total Bilirubin AST ALT Alkaline Phosphatase Total Creatine Kinase CK-MB (Mass) Troponin I NT-Pro-B Natriuret Pep Total Protein Albumin Globulin Albumin/Globulin Ratio Triglycerides Cholesterol LDL Cholesterol Direct HDL Cholesterol Free T4 TSH 3rd Generation Arterial Blood Potassium Urine Color Yellow Urine Clarity Turbid Urine pH 5.0 Ur Specific [place] 1.023 Urine Protein 2+ H Urine Glucose (UA) 3+ H Urine Ketones Negative Urine Blood 2+ H Urine Nitrate Negative Urine Bilirubin Negative Urine Urobilinogen Normal Ur Leukocyte Esterase 2+ H Urine WBC (Auto) 554 H Urine RBC (Auto) 477 H Urine Bacteria Many H 01/18/17 01/18/17 01/18/17 15:50 16:17 16:17 WBC 21.0 H D RBC 4.80 Hgb 12.5 Hct 38.9 MCV 81.1 MCH 26.0 L MCHC 32.0 L RDW 15.2 H Plt Count 453 H D MPV 7.7 Neut % (Auto) 35.5 L Lymph % (Auto) 55.4 H [place] % (Auto) 6.0 Eos % (Auto) 2.0 Baso % (Auto) 1.1 Neut # 7.5 H Lymph # 11.6 H [place] # 1.3 H Eos # 0.4 Baso # 0.2 D-Dimer, Quantitative Puncture Site pCO2 pO2 HCO3 ABG pH ABG Total CO2 ABG O2 Saturation ABG Base Excess Singh Test ABG Potassium A-a O2 Difference Respiratory Index Glucose Lactate Vent Mode Mechanical Rate FiO2 Tidal Volume PEEP Sodium 135 Potassium 4.6 Chloride 103 Carbon Dioxide 24 Anion Gap 13 BUN 20 H Creatinine 0.5 L Est GFR ( Amer) > 60 Est GFR (Non-Af Amer) > 60 POC Glucose (mg/dL) 304 H Random Glucose 339 H Hemoglobin A1c Lactic Acid Calcium 8.1 L Phosphorus 4.0 Magnesium 1.8 Total Bilirubin 0.4 AST 71 H D ALT 39 Alkaline Phosphatase 141 H Total Creatine Kinase 29 L CK-MB (Mass) 1.08 Troponin I 0.0270 NT-Pro-B Natriuret Pep 2310 H Total Protein 7.7 Albumin 3.8 Globulin 3.9 Albumin/Globulin Ratio 1.0 Triglycerides 130 Cholesterol 196 LDL Cholesterol Direct 81 HDL Cholesterol 72 H Free T4 TSH 3rd Generation 18.60 H Arterial Blood Potassium Urine Color Urine Clarity Urine pH Ur Specific [place] Urine Protein Urine Glucose (UA) Urine Ketones Urine Blood Urine Nitrate Urine Bilirubin Urine Urobilinogen Ur Leukocyte Esterase Urine WBC (Auto) Urine RBC (Auto) Urine Bacteria 01/18/17 01/18/17 01/18/17 16:17 16:17 16:17 WBC RBC Hgb Hct MCV MCH MCHC RDW Plt Count MPV Neut % (Auto) Lymph % (Auto) [place] % (Auto) Eos % (Auto) Baso % (Auto) Neut # Lymph # [place] # Eos # Baso # D-Dimer, Quantitative 650 H Puncture Site pCO2 pO2 HCO3 ABG pH ABG Total CO2 ABG O2 Saturation ABG Base Excess Singh Test ABG Potassium A-a O2 Difference Respiratory Index Glucose Lactate Vent Mode Mechanical Rate FiO2 Tidal Volume PEEP Sodium Potassium Chloride Carbon Dioxide Anion Gap BUN Creatinine Est GFR ( Amer) Est GFR (Non-Af Amer) POC Glucose (mg/dL) Random Glucose Hemoglobin A1c 9.8 H Lactic Acid Calcium Phosphorus Magnesium Total Bilirubin AST ALT Alkaline Phosphatase Total Creatine Kinase CK-MB (Mass) Troponin I NT-Pro-B Natriuret Pep Total Protein Albumin Globulin Albumin/Globulin Ratio Triglycerides Cholesterol LDL Cholesterol Direct HDL Cholesterol Free T4 1.41 TSH 3rd Generation Arterial Blood Potassium Urine Color Urine Clarity Urine pH Ur Specific [place] Urine Protein Urine Glucose (UA) Urine Ketones Urine Blood Urine Nitrate Urine Bilirubin Urine Urobilinogen Ur Leukocyte Esterase Urine WBC (Auto) Urine RBC (Auto) Urine Bacteria 01/18/17 01/18/17 01/18/17 16:17 16:50 19:08 WBC RBC Hgb Hct MCV MCH MCHC RDW Plt Count MPV Neut % (Auto) Lymph % (Auto) [place] % (Auto) Eos % (Auto) Baso % (Auto) Neut # Lymph # [place] # Eos # Baso # D-Dimer, Quantitative Puncture Site Rradial pCO2 45 pO2 204 H HCO3 23.1 ABG pH 7.33 L ABG Total CO2 25.1 ABG O2 Saturation 99.5 H ABG Base Excess -2.4 L Singh Test Pos ABG Potassium 4.1 A-a O2 Difference 239.0 Respiratory Index 1.2 Glucose 386 H Lactate 1.8 Vent Mode Prvc Mechanical Rate 16 FiO2 70.0 Tidal Volume 450 PEEP 5 Sodium 135.0 Potassium Chloride 105.0 Carbon Dioxide Anion Gap BUN Creatinine Est GFR ( Amer) Est GFR (Non-Af Amer) POC Glucose (mg/dL) 341 H Random Glucose Hemoglobin A1c Lactic Acid 2.4 H Calcium Phosphorus Magnesium Total Bilirubin AST ALT Alkaline Phosphatase Total Creatine Kinase CK-MB (Mass) Troponin I NT-Pro-B Natriuret Pep Total Protein Albumin Globulin Albumin/Globulin Ratio Triglycerides Cholesterol LDL Cholesterol Direct HDL Cholesterol Free T4 TSH 3rd Generation Arterial Blood Potassium 4.1 Urine Color Urine Clarity Urine pH Ur Specific [place] Urine Protein Urine Glucose (UA) Urine Ketones Urine Blood Urine Nitrate Urine Bilirubin Urine Urobilinogen Ur Leukocyte Esterase Urine WBC (Auto) Urine RBC (Auto) Urine Bacteria Assessment & Plan (1) Respiratory failure Assessment and Plan: CHF vs aspiration pnemonia respiratory failure from hypercapnia. Patient was transferred to the ICU for further evaluation. Intubated CXR 01/18/17 - Chronic interstitial lung disease -overall interstitial markings increased since recent exam. Interval increased interstitial pulmonary edema and /or changes due to technical differences. No dense consolidation. Right paratracheal / blending right hilar soft tissue fullness -accentuated since yesterday's exam - accentuation attributed to technical differences. Underlying pathology here still possible. No CT chest for correlation noted. Right shoulder deformity/arthrosis. Post intubation ABG - pCO2 45, pO2 204, HCO3 23.1, pH 7.33 WBC 21 Atrovent 0.5mg IH q6h PRN Azithromycin 500mg IVPB daily Aztreonam 2gm IVPB q8h Clindamycin 600mg IVPB q8h CV: Cardio - Dr. Crowell consulted, help appreciated Trop 0.027 Pro-BNP 2310 Diltiazem 30mg PO qid Crestor 20mg PO HS Aspirin 81mg PO daily Metoprolol Tartrate 75mg PO q8h Losartan 100mg PO daily HCTZ 12.5mg PO daily Neuro: Propofol drip Keppra 750mg PO BID Endo: DM2 Lantus 10 units SC BIDAC ISS Synthroid 25mcg PO daily Prophylactic Care: Lovenox 40mg SC daily Protonix 40mg IVP daily Blorastor 250mg PO BID Status: Acute (2) Seizure disorder Status: Acute (3) Uncontrolled blood glucose Status: Acute
[2017-01-18 23:15] LABS: CK-MB 0.96 ng/mL (0.0-3.38); TROPONIN I 0.025 ng/mL (0.00-0.120)
[2017-01-19] MEDS: (Novolin R) Insulin Human Regular 100 units/ml vial SC SCH ×4 (01:33→18:24)
[2017-01-19] MEDS: Aztreonam 2 GM in Sodium Chloride 0.9% 100 ML IVPB SCH ×3 (03:07→18:22)
[2017-01-19] MEDS: Propofol 10 mg/ml 1,000 MG/100 ML VIAL IV PRN (05:42)
[2017-01-19 05:55] LABS: ARTERIAL BLOOD GAS HCO3 27.3 mmol/L (21-28); ARTERIAL BLOOD GAS HEMOGLOBIN 10.5 g/dL (11.7-17.4); ARTERIAL BLOOD GAS PCO2 25 mm/Hg (35-45); ARTERIAL BLOOD GAS PH 7.59 (7.35-7.45); ARTERIAL BLOOD GAS PO2 189 mm/Hg (80-100); ARTERIAL BLOOD GAS TCO2 24.8 mmol/L (22-28)
--- NOTE | 2017-01-19 06:18 | CON ---
CARDIOLOGY CONSULTATION REASON FOR CONSULTATION: Respiratory failure and history of SVT. HISTORY OF PRESENT ILLNESS: The patient is an 81-year-old [place] female who has a history of hypertension, diabetes mellitus, SVT, and multiple falls. The patient, as far as I can recall, has a history of right ankle fracture last year followed by distal right femur fracture and also had distal tibial diaphyseal fracture and at one point required craniotomy. Patient has questionable history of atrial fibrillation. The patient was admitted from the custodial yesterday because of complaint of chest pain and vomiting. Rapid Response was called and the patient was found in respiratory distress, required intubation, mechanical ventilation, was transferred to the ICU. The patient is currently on a ventilator. There is no reported ventricular arrhythmia or hypotension. No reported SVT. MEDICATIONS: Atrovent inhaler q.6h., Zithromax 500 mg intravenously daily, Azactam 2 g intravenously q.8h., Cardizem 300 mg q.i.d. via orogastric tube, Cozaar 100 mg daily, Crestor 20 mg once a day, Lopressor mg q.8h., Lovenox 40 mg subcutaneously once a day, hydrochlorothiazide 12.5 mg daily, Synthroid 25 mcg once a day. REVIEW OF SYSTEMS: No documented seizures, no reported hypotension, no reported SVT, no reported ventricular tachycardia, and the patient has been afebrile since admission. PHYSICAL EXAMINATION: GENERAL: Patient is an elderly female who is currently sedated on a vent. She is contracted. VITAL SIGNS: Blood pressure 177/106, heart rate 110, temperature 98, respirations 20. HEENT: No pallor or icterus. CHEST: Diffuse bilateral rhonchi. HEART: S1 and S2 regular. ABDOMEN: Soft. EXTREMITIES: Contracture deformity. DIAGNOSTIC AND LABORATORY DATA: EKG reveals sinus tachycardia at rate of 113. SMA-7: Sodium 135, potassium 4.6, chloride 103, CO2 24, glucose 339, BUN 20, creatinine 0.53, proBNP 2310. D-dimer is elevated at 650. Hemoglobin and hematocrit 12.5 and 38.9, white count 21,000, platelet count 453,000. Chest x-ray, according to the patient, revealed diffuse left lung infiltrate and right upper lobe infiltrate. ET tube is in reasonable position. Echocardiography study in 10/2014 revealed normal ejection fraction, moderate pulmonary hypertension. ASSESSMENT: 1. Respiratory failure. 2. Rule out underlying pneumonia. 3. Rule out congestive heart failure. 4. History of supraventricular tachycardia. 5. Uncontrolled diabetes mellitus. 6. History of multiple falls and multiple bony fractures. RECOMMENDATIONS: Case was discussed with pelt grader, Dr. Alfaro. Continue current Zithromax and Azactam. The patient will have an orogastric tube placement for her oral medications, which will include Cardizem at 300 mg q.i.d., Cozaar 100 mg once a day, Crestor 20 mg once a day, aspirin 81 mg once a day, hydrochlorothiazide 12.5 mg daily. Hold Lopressor for now. Obtain a bedside echocardiogram. Florian Crowell MD
[2017-01-19 06:32] LABS: BASO # 0.1 K/uL (0.0-0.2); BASO % 1.7 % (0.0-2.0); EOS # 0.2 K/uL (0.0-0.7); EOS % 2.6 % (0.0-4.0); HEMOGLOBIN 9.9 g/dL (11.0-16.0); LYMPH # 2.5 K/uL (1.0-4.3); LYMPH % 40.7 % (20.0-40.0); MEAN CELL VOLUME 79.1 fL (81.0-99.0); MEAN CORPUSCULAR HEMOGLOBIN 26.4 pg (27.0-31.0); MEAN CORPUSCULAR HGB CONC 33.4 g/dL (33.0-37.0); MEAN PLATELET VOLUME 8.2 fL (7.2-11.7); MONO # 0.5 K/uL (0.0-0.8); MONO % 7.5 % (0.0-10.0); NEUT % 47.5 % (50.0-75.0); RBC 3.74 Mil/uL (3.80-5.20); RED CELL DISTRIBUTION WIDTH 14.6 % (11.5-14.5); WHITE BLOOD COUNT 6.3 K/uL (4.8-10.8)
[2017-01-19] MEDS: Levothyroxine 25 MCG TAB PO SCH (06:33)
[2017-01-19 06:49] LABS: ALB/GLOB RATIO 0.7 (1.0-2.1); ALBUMIN 2.9 g/dL (3.5-5.0); ALT/SGPT 40 U/L (9-52); AST/SGOT 21 U/L (14-36); BLOOD UREA NITROGEN 21 mg/dL (7-17); GFR AFRICAN-AMERICAN > 60; GFR NON-AFRICAN AMERICAN > 60; MAGNESIUM 1.7 mg/dL (1.6-2.3)
[2017-01-19 06:53] LABS: CK-MB 0.72 ng/mL (0.0-3.38)
--- NOTE | 2017-01-19 06:58 | RAD ---
PROCEDURE: CHEST RADIOGRAPH, 1 VIEW HISTORY: TLC Insertion COMPARISON: 01/18/2017 FINDINGS: LUNGS: Markedly limited study as the patient is rotated. Left central venous catheter with positioning of the distal tip not well evaluated on this study. Repeat study is recommended. Endotracheal tube extending into the mid thoracic trachea. Prominent diffuse confluent bilateral airspace opacities. PLEURA: As above. CARDIOVASCULAR: Cardiomegaly. OSSEOUS STRUCTURES: Degenerative changes in the spine and shoulders. VISUALIZED UPPER ABDOMEN: Normal. OTHER FINDINGS: Prominent breast calcifications. Correlation with mammogram is recommended. IMPRESSION: Incomplete and nondiagnostic evaluation of the chest with technically inadequate position. Repeat study is recommended.
[2017-01-19] MEDS: (Lantus) Insulin Glargine, Recombinant SC SCH (07:50)
[2017-01-19] MEDS ORDERED: Potassium Chloride 20 mEq/15 ml LIQ UD PO ONE (08:00)
[2017-01-19] MEDS: Enoxaparin 40 mg Syringe SC SCH (09:29)
[2017-01-19] MEDS: Saccharomyces Boulardi 250 mg Cap PO SCH ×2 (09:29→17:23)
[2017-01-19] MEDS: Azithromycin 500 MG in Sodium Chloride 0.9% 250 ML IVPB SCH (09:59)
--- NOTE | 2017-01-19 13:49 | CARD ---
APPROVED REPORT EXAM: Two-dimensional and M-mode echocardiogram with Doppler and color Doppler. Other Information Quality : GoodRhythm : INDICATION Chest Pain Pneumonia RISK FACTORS Diabetes 2D DIMENSIONS IVSd0.9 (0.7-1.1cm)LVDd4.1 (3.9-5.9cm) PWd1.0 (0.7-1.1cm)LVDs3.8 (2.5-4.0cm) FS (%) 9.4 %LVEF (%)37.0 (>50%) M-Mode DIMENSIONS Left Atrium (MM)3.97 (2.5-4.0cm)Aortic Root2.67 (2.2-3.7cm) Aortic Cusp Exc.1.44 (1.5-2.0cm) Mitral Valve MV E Wysnwtro295.5cm/sE/A ratio0.0 TDI E/Lateral E'0.0E/Medial E'0.0 Tricuspid Valve TR Peak [id number]/sTR Peak Gr.[id number] LEFT VENTRICLE The left ventricle is normal size. There is normal left ventricular wall thickness. The systolic function is moderately impaired. There is global hypokinesis of the left ventricle. Transmitral Doppler flow pattern is Grade I-abnormal relaxation pattern. Tissue Doppler imaging reveals severe left ventricular diastolic dysfunction. No left ventricle thrombus noted on this study. No left ventricle thrombus noted on this study. There is no ventricular septal defect visualized. There is no left ventricular aneurysm. There is no mass noted in the left ventricle. RIGHT VENTRICLE The right ventricle is normal size. There is normal right ventricular wall thickness. Systolic function is mildly to moderately reduced. ATRIA The left atrium is mildly dilated. The right atrium size is normal. AORTIC VALVE The aortic valve is normal in structure. No aortic regurgitation is present. There is no aortic valvular stenosis. There is no aortic valvular vegetation. MITRAL VALVE The mitral valve is normal in structure. There is no mitral valve stenosis. Mitral regurgitation is moderate to severe. TRICUSPID VALVE The tricuspid valve is normal in structure. There is mild tricuspid regurgitation. There is severe pulmonary hypertension. PULMONIC VALVE The pulmonary valve is normal in structure. There is no pulmonic valvular regurgitation. GREAT VESSELS The aortic root is normal in size. The ascending aorta is normal in size. The pulmonary artery is normal. PERICARDIAL EFFUSION There is no pericardial effusion. <Conclusion> The systolic function is moderately impaired. There is global hypokinesis of the left ventricle. Transmitral Doppler flow pattern is Grade I-abnormal relaxation pattern. Tissue Doppler imaging reveals severe left ventricular diastolic dysfunction. Systolic function is mildly to moderately reduced. The left atrium is mildly dilated. Mitral regurgitation is moderate to severe. There is mild tricuspid regurgitation. There is severe pulmonary hypertension. LVEF IS 37%.
--- NOTE | 2017-01-19 13:49 | RAD ---
HISTORY: intubated COMPARISON: 01/18/2017 FINDINGS: The endotracheal tube terminates 2.5 cm proximal to the iwona. The left IJV line terminates in the SVC. The nasogastric tube terminates in the stomach. LUNGS: The lungs are hyperinflated and there is peribronchial cuffing with streaky opacities in the lungs. There is pulmonary venous congestion. PLEURA: No significant pleural effusion identified, no pneumothorax apparent. CARDIOVASCULAR: The cardiomediastinal silhouette is stable. OSSEOUS STRUCTURES: There are multiple old fracture deformities in the right-sided ribs. 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 VISUALIZED UPPER ABDOMEN: Normal. OTHER FINDINGS: None. IMPRESSION: Stable position of lines and tubes. COPD. No focal consolidation. Pulmonary venous congestion.
--- NOTE | 2017-01-19 15:39 | CP.CCUPN ---
<Leo Amos - Last Filed: 01/19/17 15:36> CCU Subjective - Physician Review Subjective (Free Text): PGY1 ICU Progress Note for Dr. Alfaro Patient was seen and examined at bedside this morning. No acute events overnight. Patient is intubated. ROS unattainable. CCU Objective - Vital Signs / Intake & Output Vital Signs (Last 4 hours): Vital Signs Temp Pulse Resp BP Pulse Ox 01/19/17 14:19 87 16 99/66 L 100 01/19/17 14:00 86 16 100 01/19/17 13:49 103 H 14 95/68 L 100 01/19/17 13:19 99 H 17 101/62 100 01/19/17 13:14 90 15 98/64 L 100 01/19/17 13:00 88 17 100 01/19/17 12:49 124 H 15 88/58 L 100 01/19/17 12:19 105 H 16 82/57 L 100 01/19/17 12:18 106 H 16 84/59 L 100 01/19/17 12:14 107 H 16 89/61 L 100 01/19/17 12:00 97.4 F L 134 H 32 H 92 L Intake and Output (Last 8hrs): Intake & Output 01/19/17 01/19/17 01/19/17 06:59 14:59 22:59 Intake Total 343.0 605.4 Output Total 370 245 Balance -27.0 360.4 Weight 93 lb 0.561 oz Intake: IV 81.0 Intake, IV Amount 142.0 605.4 Left Medial Port Internal 100 200 Jugular Left Proximal Port 42.0 405.4 Internal Jugular Other 120 Output: Urine 370 245 Urine, Voided 370 245 - Physical Exam Head: Positive for: Atraumatic, Normocephalic Pupils: Positive for: PERRL Extroacular Muscles: Positive for: EOMI Mouth: Positive for: Other (intubated) Respiratory/Chest: Positive for: Clear to Auscultation, Other (intubated). Negative for: Respiratory Distress Cardiovascular: Positive for: Regular Rate and Rhythm Abdomen: Negative for: Tenderness, Distention, Peritoneal Signs Upper Extremity: Positive for: Normal Inspection. Negative for: Edema Lower Extremity: Positive for: Normal Inspection. Negative for: Edema Neurological: Positive for: Other (intubated) Skin: Positive for: Warm, Dry Psychiatric: Positive for: Alert, Other (intubated) - Medications Active Medications: Active Medications Generic Name Dose Route Start Last Admin Trade Name Freq PRN Reason Stop Dose Admin Acetaminophen 650 mg 01/17/17 21:49 01/18/17 15:23 Tylenol 325mg Tab PO 650 mg Q6 PRN Administration Pain, moderate (4-7) Aspirin 81 mg 01/18/17 10:00 01/19/17 09:57 Ecotrin PO 81 mg DAILY SCOTTY Administration Calcium Carbonate 500 mg 01/18/17 10:00 01/19/17 09:30 Oscal PO 500 mg BID SCOTTY Administration Diltiazem HCl 30 mg 01/17/17 22:00 01/19/17 13:13 Cardizem PO Not Given QID SCOTTY Enoxaparin Sodium 40 mg 01/18/17 10:00 01/19/17 09:29 Lovenox SC 40 mg DAILY SCOTTY Administration Folic Acid 1 mg 01/18/17 10:00 01/19/17 09:29 Folic Acid PO 1 mg DAILY SCOTTY Administration Hydrochlorothiazide 12.5 mg 01/18/17 10:00 01/19/17 09:29 Microzide PO 12.5 mg DAILY SCOTTY Administration Azithromycin 500 mg/ Sodium 250 mls @ 250 mls/hr 01/18/17 10:00 01/19/17 09: 59 Chloride IVPB 250 mls/hr DAILY SCOTTY Administration Propofol 1,000 mg in 100 mls @ 1.238 mls/hr 01/18/17 16:29 01/19/17 05:42 Diprivan IV 10.9 mcg/kg/min .Q24H PRN 2.7 mls/hr TITRATE PER MD ORDER Administration Protocol 5 MCG/KG/MIN Aztreonam 2 gm/ Sodium 100 mls @ 200 mls/hr 01/18/17 19:00 01/19/17 11:25 Chloride IVPB 200 mls/hr Q8H SCOTTY Administration Clindamycin Phosphate 600 mg/ 54 mls @ 100 mls/hr 01/18/17 22:00 01/19/17 13: 12 Sodium Chloride IVPB 100 mls/hr Q8 SCOTTY Administration Insulin Glargine 10 unit 01/18/17 07:30 01/19/17 07:50 Lantus SC Not Given BIDAC SCOTTY Insulin Human Regular 0 unit 01/18/17 21:15 01/19/17 12:07 Novolin R SC 4 unit Q6 SCOTTY Administration Protocol Ipratropium Rector 0.5 mg 01/18/17 15:39 Atrovent IH RQ6 PRN Shortness of Breath Levetiracetam 750 mg 01/18/17 10:00 01/19/17 09:29 Keppra PO 750 mg BID SCOTTY Administration Levothyroxine Sodium 25 mcg 01/18/17 06:30 01/19/17 06:33 Synthroid PO 25 mcg DAILY@0630 SCOTTY Administration Losartan Potassium 100 mg 01/18/17 10:00 01/19/17 09:29 Cozaar PO 100 mg DAILY SCOTTY Administration Magnesium Hydroxide 30 ml 01/17/17 21:49 Milk Of Magnesia PO DAILY PRN Constipation Metoprolol Tartrate 75 mg 01/17/17 22:00 01/19/17 13:13 Lopressor PO Not Given Q8 SCOTTY Pantoprazole Sodium 40 mg 01/19/17 10:00 01/19/17 09:29 Protonix Inj IVP 40 mg DAILY SCOTTY Administration Rosuvastatin Calcium 20 mg 01/18/17 22:00 01/18/17 21:15 Crestor PO 20 mg HS SCOTTY Administration Saccharomyces Boulardii 250 mg 01/18/17 18:00 01/19/17 09:29 Florastor PO 250 mg BID SCOTTY Administration - Patient Studies Lab Studies: Microbiology Studies 01/17/17 20:30 Blood Culture - Preliminary Blood-Venous NO GROWTH AFTER 24 HOURS 01/17/17 20:00 Blood Culture - Preliminary Blood-Venous NO GROWTH AFTER 24 HOURS Lab Studies 01/19/17 01/19/17 01/19/17 Range/Units 11:31 06:26 06:23 WBC 6.3 D (4.8-10.8) K/uL RBC 3.74 L (3.80-5.20) Mil/uL Hgb 9.9 L D (11.0-16.0) g/dL Hct 29.6 L (34.0-47.0) % MCV 79.1 L D (81.0-99.0) fL MCH 26.4 L (27.0-31.0) pg MCHC 33.4 (33.0-37.0) g/dL RDW 14.6 H (11.5-14.5) % Plt Count 168 D (130-400) K/uL MPV 8.2 (7.2-11.7) fL Neut % (Auto) 47.5 L (50.0-75.0) % Lymph % (Auto) 40.7 H (20.0-40.0) % Tift % (Auto) 7.5 (0.0-10.0) % Eos % (Auto) 2.6 (0.0-4.0) % Baso % (Auto) 1.7 (0.0-2.0) % Neut # 3.0 (1.8-7.0) K/uL Lymph # 2.5 (1.0-4.3) K/uL Tift # 0.5 (0.0-0.8) K/uL Eos # 0.2 (0.0-0.7) K/uL Baso # 0.1 (0.0-0.2) K/uL D-Dimer, Quantitative (0-243) ng/mlDDU Puncture Site pCO2 (35-45) mm/Hg pO2 (80-100) mm/Hg HCO3 (21-28) mmol/L ABG pH (7.35-7.45) ABG Total CO2 (22-28) mmol/L ABG O2 Saturation (95-98) % ABG Base Excess (-2.0-3.0) mmol/L ABG Hemoglobin (11.7-17.4) g/dL ABG Carboxyhemoglobin (0.5-1.5) % POC ABG HHb (Measured) (0.0-5.0) % ABG Methemoglobin (0.0-3.0) % Singh Test ABG Potassium (3.6-5.2) mmol/L A-a O2 Difference mm/Hg Respiratory Index Hgb O2 Saturation (95.0-98.0) % Glucose (65-105) mg/dl Lactate (0.7-2.1) mmol/L Vent Mode Mechanical Rate FiO2 % Tidal Volume PEEP Sodium 135 (132-148) mmol/L Potassium 3.2 L (3.6-5.2) mmol/L Chloride 104 (98-107) mmol/L Carbon Dioxide 28 (22-30) mmol/L Anion Gap 7 L (10-20) BUN 21 H (7-17) mg/dL Creatinine 0.5 L (0.7-1.2) mg/dL Est GFR ( Amer) > 60 Est GFR (Non-Af Amer) > 60 POC Glucose (mg/dL) 319 H (65-110) mg/dL Random Glucose 163 H (65-105) mg/dL Hemoglobin A1c (4.2-6.5) % Lactic Acid (0.7-2.1) mmol/L Calcium 8.0 L (8.6-10.4) mg/dl Phosphorus 2.9 (2.5-4.5) mg/dL Magnesium 1.7 (1.6-2.3) mg/dL Total Bilirubin 0.4 (0.2-1.3) mg/dL AST 21 (14-36) U/L ALT 40 (9-52) U/L Alkaline Phosphatase 103 (38-126) U/L Total Creatine Kinase 25 L (30-135) U/L CK-MB (Mass) 0.72 (0.0-3.38) ng/mL Troponin I 0.0230 (0.00-0.120) ng/mL NT-Pro-B Natriuret Pep (0-900) pg/mL Total Protein 7.1 (6.3-8.3) g/dL Albumin 2.9 L D (3.5-5.0) g/dL Globulin 4.2 H (2.2-3.9) gm/dL Albumin/Globulin Ratio 0.7 L (1.0-2.1) Triglycerides (0-149) mg/dL Cholesterol (0-199) mg/dL LDL Cholesterol Direct (0-129) mg/dL HDL Cholesterol (30-70) mg/dL Procalcitonin (0.19-0.49) NG/ML Free T4 (0.78-2.19) ng/dL TSH 3rd Generation (0.46-4.68) mIU/L Arterial Blood Potassium (3.6-5.2) mmol/L 01/19/17 01/19/17 01/19/17 Range/Units 05:39 05:22 00:26 WBC (4.8-10.8) K/uL RBC (3.80-5.20) Mil/uL Hgb (11.0-16.0) g/dL Hct (34.0-47.0) % MCV (81.0-99.0) fL MCH (27.0-31.0) pg MCHC (33.0-37.0) g/dL RDW (11.5-14.5) % Plt Count (130-400) K/uL MPV (7.2-11.7) fL Neut % (Auto) (50.0-75.0) % Lymph % (Auto) (20.0-40.0) % Tift % (Auto) (0.0-10.0) % Eos % (Auto) (0.0-4.0) % Baso % (Auto) (0.0-2.0) % Neut # (1.8-7.0) K/uL Lymph # (1.0-4.3) K/uL Tift # (0.0-0.8) K/uL Eos # (0.0-0.7) K/uL Baso # (0.0-0.2) K/uL D-Dimer, Quantitative (0-243) ng/mlDDU Puncture Site R brac pCO2 25 L (35-45) mm/Hg pO2 189 H (80-100) mm/Hg HCO3 27.3 (21-28) mmol/L ABG pH 7.59 H (7.35-7.45) ABG Total CO2 24.8 (22-28) mmol/L ABG O2 Saturation 99.0 H (95-98) % ABG Base Excess 3.0 (-2.0-3.0) mmol/L ABG Hemoglobin 10.5 L (11.7-17.4) g/dL ABG Carboxyhemoglobin 1.4 (0.5-1.5) % POC ABG HHb (Measured) 1.0 (0.0-5.0) % ABG Methemoglobin 1.5 (0.0-3.0) % Singh Test Na ABG Potassium (3.6-5.2) mmol/L A-a O2 Difference 136.0 mm/Hg Respiratory Index 0.7 Hgb O2 Saturation 96.1 (95.0-98.0) % Glucose (65-105) mg/dl Lactate (0.7-2.1) mmol/L Vent Mode Prvc Mechanical Rate 16 FiO2 50.0 % Tidal Volume 450 PEEP 5 Sodium (132-148) mmol/L Potassium (3.6-5.2) mmol/L Chloride (98-107) mmol/L Carbon Dioxide (22-30) mmol/L Anion Gap (10-20) BUN (7-17) mg/dL Creatinine (0.7-1.2) mg/dL Est GFR ( Amer) Est GFR (Non-Af Amer) POC Glucose (mg/dL) 165 H 245 H (65-110) mg/dL Random Glucose (65-105) mg/dL Hemoglobin A1c (4.2-6.5) % Lactic Acid (0.7-2.1) mmol/L Calcium (8.6-10.4) mg/dl Phosphorus (2.5-4.5) mg/dL Magnesium (1.6-2.3) mg/dL Total Bilirubin (0.2-1.3) mg/dL AST (14-36) U/L ALT (9-52) U/L Alkaline Phosphatase (38-126) U/L Total Creatine Kinase (30-135) U/L CK-MB (Mass) (0.0-3.38) ng/mL Troponin I (0.00-0.120) ng/mL NT-Pro-B Natriuret Pep (0-900) pg/mL Total Protein (6.3-8.3) g/dL Albumin (3.5-5.0) g/dL Globulin (2.2-3.9) gm/dL Albumin/Globulin Ratio (1.0-2.1) Triglycerides (0-149) mg/dL Cholesterol (0-199) mg/dL LDL Cholesterol Direct (0-129) mg/dL HDL Cholesterol (30-70) mg/dL Procalcitonin (0.19-0.49) NG/ML Free T4 (0.78-2.19) ng/dL TSH 3rd Generation (0.46-4.68) mIU/L Arterial Blood Potassium (3.6-5.2) mmol/L 01/18/17 01/18/17 01/18/17 Range/Units 22:29 22:29 19:08 WBC (4.8-10.8) K/uL RBC (3.80-5.20) Mil/uL Hgb (11.0-16.0) g/dL Hct (34.0-47.0) % MCV (81.0-99.0) fL MCH (27.0-31.0) pg MCHC (33.0-37.0) g/dL RDW (11.5-14.5) % Plt Count (130-400) K/uL MPV (7.2-11.7) fL Neut % (Auto) (50.0-75.0) % Lymph % (Auto) (20.0-40.0) % Tift % (Auto) (0.0-10.0) % Eos % (Auto) (0.0-4.0) % Baso % (Auto) (0.0-2.0) % Neut # (1.8-7.0) K/uL Lymph # (1.0-4.3) K/uL Tift # (0.0-0.8) K/uL Eos # (0.0-0.7) K/uL Baso # (0.0-0.2) K/uL D-Dimer, Quantitative (0-243) ng/mlDDU Puncture Site pCO2 (35-45) mm/Hg pO2 (80-100) mm/Hg HCO3 (21-28) mmol/L ABG pH (7.35-7.45) ABG Total CO2 (22-28) mmol/L ABG O2 Saturation (95-98) % ABG Base Excess (-2.0-3.0) mmol/L ABG Hemoglobin (11.7-17.4) g/dL ABG Carboxyhemoglobin (0.5-1.5) % POC ABG HHb (Measured) (0.0-5.0) % ABG Methemoglobin (0.0-3.0) % Singh Test ABG Potassium (3.6-5.2) mmol/L A-a O2 Difference mm/Hg Respiratory Index Hgb O2 Saturation (95.0-98.0) % Glucose (65-105) mg/dl Lactate (0.7-2.1) mmol/L Vent Mode Mechanical Rate FiO2 % Tidal Volume PEEP Sodium (132-148) mmol/L Potassium (3.6-5.2) mmol/L Chloride (98-107) mmol/L Carbon Dioxide (22-30) mmol/L Anion Gap (10-20) BUN (7-17) mg/dL Creatinine (0.7-1.2) mg/dL Est GFR ( Amer) Est GFR (Non-Af Amer) POC Glucose (mg/dL) 341 H (65-110) mg/dL Random Glucose (65-105) mg/dL Hemoglobin A1c (4.2-6.5) % Lactic Acid (0.7-2.1) mmol/L Calcium (8.6-10.4) mg/dl Phosphorus (2.5-4.5) mg/dL Magnesium (1.6-2.3) mg/dL Total Bilirubin (0.2-1.3) mg/dL AST (14-36) U/L ALT (9-52) U/L Alkaline Phosphatase (38-126) U/L Total Creatine Kinase 26 L (30-135) U/L CK-MB (Mass) 0.96 (0.0-3.38) ng/mL Troponin I 0.0250 (0.00-0.120) ng/mL NT-Pro-B Natriuret Pep (0-900) pg/mL Total Protein (6.3-8.3) g/dL Albumin (3.5-5.0) g/dL Globulin (2.2-3.9) gm/dL Albumin/Globulin Ratio (1.0-2.1) Triglycerides (0-149) mg/dL Cholesterol (0-199) mg/dL LDL Cholesterol Direct (0-129) mg/dL HDL Cholesterol (30-70) mg/dL Procalcitonin 0.06 L (0.19-0.49) NG/ML Free T4 (0.78-2.19) ng/dL TSH 3rd Generation (0.46-4.68) mIU/L Arterial Blood Potassium (3.6-5.2) mmol/L 01/18/17 01/18/17 01/18/17 Range/Units 16:50 16:17 16:17 WBC (4.8-10.8) K/uL RBC (3.80-5.20) Mil/uL Hgb (11.0-16.0) g/dL Hct (34.0-47.0) % MCV (81.0-99.0) fL MCH (27.0-31.0) pg MCHC (33.0-37.0) g/dL RDW (11.5-14.5) % Plt Count (130-400) K/uL MPV (7.2-11.7) fL Neut % (Auto) (50.0-75.0) % Lymph % (Auto) (20.0-40.0) % Tift % (Auto) (0.0-10.0) % Eos % (Auto) (0.0-4.0) % Baso % (Auto) (0.0-2.0) % Neut # (1.8-7.0) K/uL Lymph # (1.0-4.3) K/uL Tift # (0.0-0.8) K/uL Eos # (0.0-0.7) K/uL Baso # (0.0-0.2) K/uL D-Dimer, Quantitative 650 H (0-243) ng/mlDDU Puncture Site Rradial pCO2 45 (35-45) mm/Hg pO2 204 H (80-100) mm/Hg HCO3 23.1 (21-28) mmol/L ABG pH 7.33 L (7.35-7.45) ABG Total CO2 25.1 (22-28) mmol/L ABG O2 Saturation 99.5 H (95-98) % ABG Base Excess -2.4 L (-2.0-3.0) mmol/L ABG Hemoglobin (11.7-17.4) g/dL ABG Carboxyhemoglobin (0.5-1.5) % POC ABG HHb (Measured) (0.0-5.0) % ABG Methemoglobin (0.0-3.0) % Singh Test Pos ABG Potassium 4.1 (3.6-5.2) mmol/L A-a O2 Difference 239.0 mm/Hg Respiratory Index 1.2 Hgb O2 Saturation (95.0-98.0) % Glucose 386 H (65-105) mg/dl Lactate 1.8 (0.7-2.1) mmol/L Vent Mode Prvc Mechanical Rate 16 FiO2 70.0 % Tidal Volume 450 PEEP 5 Sodium 135.0 (132-148) mmol/L Potassium (3.6-5.2) mmol/L Chloride 105.0 (98-107) mmol/L Carbon Dioxide (22-30) mmol/L Anion Gap (10-20) BUN (7-17) mg/dL Creatinine (0.7-1.2) mg/dL Est GFR ( Amer) Est GFR (Non-Af Amer) POC Glucose (mg/dL) (65-110) mg/dL Random Glucose (65-105) mg/dL Hemoglobin A1c (4.2-6.5) % Lactic Acid 2.4 H (0.7-2.1) mmol/L Calcium (8.6-10.4) mg/dl Phosphorus (2.5-4.5) mg/dL Magnesium (1.6-2.3) mg/dL Total Bilirubin (0.2-1.3) mg/dL AST (14-36) U/L ALT (9-52) U/L Alkaline Phosphatase (38-126) U/L Total Creatine Kinase (30-135) U/L CK-MB (Mass) (0.0-3.38) ng/mL Troponin I (0.00-0.120) ng/mL NT-Pro-B Natriuret Pep (0-900) pg/mL Total Protein (6.3-8.3) g/dL Albumin (3.5-5.0) g/dL Globulin (2.2-3.9) gm/dL Albumin/Globulin Ratio (1.0-2.1) Triglycerides (0-149) mg/dL Cholesterol (0-199) mg/dL LDL Cholesterol Direct (0-129) mg/dL HDL Cholesterol (30-70) mg/dL Procalcitonin (0.19-0.49) NG/ML Free T4 (0.78-2.19) ng/dL TSH 3rd Generation (0.46-4.68) mIU/L Arterial Blood Potassium 4.1 (3.6-5.2) mmol/L 01/18/17 01/18/17 01/18/17 Range/Units 16:17 16:17 16:17 WBC (4.8-10.8) K/uL RBC (3.80-5.20) Mil/uL Hgb (11.0-16.0) g/dL Hct (34.0-47.0) % MCV (81.0-99.0) fL MCH (27.0-31.0) pg MCHC (33.0-37.0) g/dL RDW (11.5-14.5) % Plt Count (130-400) K/uL MPV (7.2-11.7) fL Neut % (Auto) (50.0-75.0) % Lymph % (Auto) (20.0-40.0) % Tift % (Auto) (0.0-10.0) % Eos % (Auto) (0.0-4.0) % Baso % (Auto) (0.0-2.0) % Neut # (1.8-7.0) K/uL Lymph # (1.0-4.3) K/uL Tift # (0.0-0.8) K/uL Eos # (0.0-0.7) K/uL Baso # (0.0-0.2) K/uL D-Dimer, Quantitative (0-243) ng/mlDDU Puncture Site pCO2 (35-45) mm/Hg pO2 (80-100) mm/Hg HCO3 (21-28) mmol/L ABG pH (7.35-7.45) ABG Total CO2 (22-28) mmol/L ABG O2 Saturation (95-98) % ABG Base Excess (-2.0-3.0) mmol/L ABG Hemoglobin (11.7-17.4) g/dL ABG Carboxyhemoglobin (0.5-1.5) % POC ABG HHb (Measured) (0.0-5.0) % ABG Methemoglobin (0.0-3.0) % Singh Test ABG Potassium (3.6-5.2) mmol/L A-a O2 Difference mm/Hg Respiratory Index Hgb O2 Saturation (95.0-98.0) % Glucose (65-105) mg/dl Lactate (0.7-2.1) mmol/L Vent Mode Mechanical Rate FiO2 % Tidal Volume PEEP Sodium 135 (132-148) mmol/L Potassium 4.6 (3.6-5.2) mmol/L Chloride 103 (98-107) mmol/L Carbon Dioxide 24 (22-30) mmol/L Anion Gap 13 (10-20) BUN 20 H (7-17) mg/dL Creatinine 0.5 L (0.7-1.2) mg/dL Est GFR ( Amer) > 60 Est GFR (Non-Af Amer) > 60 POC Glucose (mg/dL) (65-110) mg/dL Random Glucose 339 H (65-105) mg/dL Hemoglobin A1c 9.8 H (4.2-6.5) % Lactic Acid (0.7-2.1) mmol/L Calcium 8.1 L (8.6-10.4) mg/dl Phosphorus 4.0 (2.5-4.5) mg/dL Magnesium 1.8 (1.6-2.3) mg/dL Total Bilirubin 0.4 (0.2-1.3) mg/dL AST 71 H D (14-36) U/L ALT 39 (9-52) U/L Alkaline Phosphatase 141 H (38-126) U/L Total Creatine Kinase 29 L (30-135) U/L CK-MB (Mass) 1.08 (0.0-3.38) ng/mL Troponin I 0.0270 (0.00-0.120) ng/mL NT-Pro-B Natriuret Pep 2310 H (0-900) pg/mL Total Protein 7.7 (6.3-8.3) g/dL Albumin 3.8 (3.5-5.0) g/dL Globulin 3.9 (2.2-3.9) gm/dL Albumin/Globulin Ratio 1.0 (1.0-2.1) Triglycerides 130 (0-149) mg/dL Cholesterol 196 (0-199) mg/dL LDL Cholesterol Direct 81 (0-129) mg/dL HDL Cholesterol 72 H (30-70) mg/dL Procalcitonin (0.19-0.49) NG/ML Free T4 1.41 (0.78-2.19) ng/dL TSH 3rd Generation 18.60 H (0.46-4.68) mIU/L Arterial Blood Potassium (3.6-5.2) mmol/L 01/18/17 01/18/17 Range/Units 16:17 15:50 WBC 21.0 H D (4.8-10.8) K/uL RBC 4.80 (3.80-5.20) Mil/uL Hgb 12.5 (11.0-16.0) g/dL Hct 38.9 (34.0-47.0) % MCV 81.1 (81.0-99.0) fL MCH 26.0 L (27.0-31.0) pg MCHC 32.0 L (33.0-37.0) g/dL RDW 15.2 H (11.5-14.5) % Plt Count 453 H D (130-400) K/uL MPV 7.7 (7.2-11.7) fL Neut % (Auto) 35.5 L (50.0-75.0) % Lymph % (Auto) 55.4 H (20.0-40.0) % Tift % (Auto) 6.0 (0.0-10.0) % Eos % (Auto) 2.0 (0.0-4.0) % Baso % (Auto) 1.1 (0.0-2.0) % Neut # 7.5 H (1.8-7.0) K/uL Lymph # 11.6 H (1.0-4.3) K/uL Tift # 1.3 H (0.0-0.8) K/uL Eos # 0.4 (0.0-0.7) K/uL Baso # 0.2 (0.0-0.2) K/uL D-Dimer, Quantitative (0-243) ng/mlDDU Puncture Site pCO2 (35-45) mm/Hg pO2 (80-100) mm/Hg HCO3 (21-28) mmol/L ABG pH (7.35-7.45) ABG Total CO2 (22-28) mmol/L ABG O2 Saturation (95-98) % ABG Base Excess (-2.0-3.0) mmol/L ABG Hemoglobin (11.7-17.4) g/dL ABG Carboxyhemoglobin (0.5-1.5) % POC ABG HHb (Measured) (0.0-5.0) % ABG Methemoglobin (0.0-3.0) % Singh Test ABG Potassium (3.6-5.2) mmol/L A-a O2 Difference mm/Hg Respiratory Index Hgb O2 Saturation (95.0-98.0) % Glucose (65-105) mg/dl Lactate (0.7-2.1) mmol/L Vent Mode Mechanical Rate FiO2 % Tidal Volume PEEP Sodium (132-148) mmol/L Potassium (3.6-5.2) mmol/L Chloride (98-107) mmol/L Carbon Dioxide (22-30) mmol/L Anion Gap (10-20) BUN (7-17) mg/dL Creatinine (0.7-1.2) mg/dL Est GFR ( Amer) Est GFR (Non-Af Amer) POC Glucose (mg/dL) 304 H (65-110) mg/dL Random Glucose (65-105) mg/dL Hemoglobin A1c (4.2-6.5) % Lactic Acid (0.7-2.1) mmol/L Calcium (8.6-10.4) mg/dl Phosphorus (2.5-4.5) mg/dL Magnesium (1.6-2.3) mg/dL Total Bilirubin (0.2-1.3) mg/dL AST (14-36) U/L ALT (9-52) U/L Alkaline Phosphatase (38-126) U/L Total Creatine Kinase (30-135) U/L CK-MB (Mass) (0.0-3.38) ng/mL Troponin I (0.00-0.120) ng/mL NT-Pro-B Natriuret Pep (0-900) pg/mL Total Protein (6.3-8.3) g/dL Albumin (3.5-5.0) g/dL Globulin (2.2-3.9) gm/dL Albumin/Globulin Ratio (1.0-2.1) Triglycerides (0-149) mg/dL Cholesterol (0-199) mg/dL LDL Cholesterol Direct (0-129) mg/dL HDL Cholesterol (30-70) mg/dL Procalcitonin (0.19-0.49) NG/ML Free T4 (0.78-2.19) ng/dL TSH 3rd Generation (0.46-4.68) mIU/L Arterial Blood Potassium (3.6-5.2) mmol/L Laboratory Results - last 24 hr 01/18/17 01/18/17 01/18/17 15:50 16:17 16:17 WBC 21.0 H D RBC 4.80 Hgb 12.5 Hct 38.9 MCV 81.1 MCH 26.0 L MCHC 32.0 L RDW 15.2 H Plt Count 453 H D MPV 7.7 Neut % (Auto) 35.5 L Lymph % (Auto) 55.4 H Tift % (Auto) 6.0 Eos % (Auto) 2.0 Baso % (Auto) 1.1 Neut # 7.5 H Lymph # 11.6 H Tift # 1.3 H Eos # 0.4 Baso # 0.2 D-Dimer, Quantitative Puncture Site pCO2 pO2 HCO3 ABG pH ABG Total CO2 ABG O2 Saturation ABG Base Excess ABG Hemoglobin ABG Carboxyhemoglobin POC ABG HHb (Measured) ABG Methemoglobin Singh Test ABG Potassium A-a O2 Difference Respiratory Index Hgb O2 Saturation Glucose Lactate Vent Mode Mechanical Rate FiO2 Tidal Volume PEEP Sodium 135 Potassium 4.6 Chloride 103 Carbon Dioxide 24 Anion Gap 13 BUN 20 H Creatinine 0.5 L Est GFR ( Amer) > 60 Est GFR (Non-Af Amer) > 60 POC Glucose (mg/dL) 304 H Random Glucose 339 H Hemoglobin A1c Lactic Acid Calcium 8.1 L Phosphorus 4.0 Magnesium 1.8 Total Bilirubin 0.4 AST 71 H D ALT 39 Alkaline Phosphatase 141 H Total Creatine Kinase 29 L CK-MB (Mass) 1.08 Troponin I 0.0270 NT-Pro-B Natriuret Pep 2310 H Total Protein 7.7 Albumin 3.8 Globulin 3.9 Albumin/Globulin Ratio 1.0 Triglycerides 130 Cholesterol 196 LDL Cholesterol Direct 81 HDL Cholesterol 72 H Procalcitonin Free T4 TSH 3rd Generation 18.60 H Arterial Blood Potassium 01/18/17 01/18/17 01/18/17 16:17 16:17 16:17 WBC RBC Hgb Hct MCV MCH MCHC RDW Plt Count MPV Neut % (Auto) Lymph % (Auto) Tift % (Auto) Eos % (Auto) Baso % (Auto) Neut # Lymph # Tift # Eos # Baso # D-Dimer, Quantitative 650 H Puncture Site pCO2 pO2 HCO3 ABG pH ABG Total CO2 ABG O2 Saturation ABG Base Excess ABG Hemoglobin ABG Carboxyhemoglobin POC ABG HHb (Measured) ABG Methemoglobin Singh Test ABG Potassium A-a O2 Difference Respiratory Index Hgb O2 Saturation Glucose Lactate Vent Mode Mechanical Rate FiO2 Tidal Volume PEEP Sodium Potassium Chloride Carbon Dioxide Anion Gap BUN Creatinine Est GFR ( Amer) Est GFR (Non-Af Amer) POC Glucose (mg/dL) Random Glucose Hemoglobin A1c 9.8 H Lactic Acid Calcium Phosphorus Magnesium Total Bilirubin AST ALT Alkaline Phosphatase Total Creatine Kinase CK-MB (Mass) Troponin I NT-Pro-B Natriuret Pep Total Protein Albumin Globulin Albumin/Globulin Ratio Triglycerides Cholesterol LDL Cholesterol Direct HDL Cholesterol Procalcitonin Free T4 1.41 TSH 3rd Generation Arterial Blood Potassium 01/18/17 01/18/17 01/18/17 16:17 16:50 19:08 WBC RBC Hgb Hct MCV MCH MCHC RDW Plt Count MPV Neut % (Auto) Lymph % (Auto) Tift % (Auto) Eos % (Auto) Baso % (Auto) Neut # Lymph # Tift # Eos # Baso # D-Dimer, Quantitative Puncture Site Rradial pCO2 45 pO2 204 H HCO3 23.1 ABG pH 7.33 L ABG Total CO2 25.1 ABG O2 Saturation 99.5 H ABG Base Excess -2.4 L ABG Hemoglobin ABG Carboxyhemoglobin POC ABG HHb (Measured) ABG Methemoglobin Singh Test Pos ABG Potassium 4.1 A-a O2 Difference 239.0 Respiratory Index 1.2 Hgb O2 Saturation Glucose 386 H Lactate 1.8 Vent Mode Prvc Mechanical Rate 16 FiO2 70.0 Tidal Volume 450 PEEP 5 Sodium 135.0 Potassium Chloride 105.0 Carbon Dioxide Anion Gap BUN Creatinine Est GFR ( Amer) Est GFR (Non-Af Amer) POC Glucose (mg/dL) 341 H Random Glucose Hemoglobin A1c Lactic Acid 2.4 H Calcium Phosphorus Magnesium Total Bilirubin AST ALT Alkaline Phosphatase Total Creatine Kinase CK-MB (Mass) Troponin I NT-Pro-B Natriuret Pep Total Protein Albumin Globulin Albumin/Globulin Ratio Triglycerides Cholesterol LDL Cholesterol Direct HDL Cholesterol Procalcitonin Free T4 TSH 3rd Generation Arterial Blood Potassium 4.1 01/18/17 01/18/17 01/19/17 22:29 22:29 00:26 WBC RBC Hgb Hct MCV MCH MCHC RDW Plt Count MPV Neut % (Auto) Lymph % (Auto) Tift % (Auto) Eos % (Auto) Baso % (Auto) Neut # Lymph # Tift # Eos # Baso # D-Dimer, Quantitative Puncture Site pCO2 pO2 HCO3 ABG pH ABG Total CO2 ABG O2 Saturation ABG Base Excess ABG Hemoglobin ABG Carboxyhemoglobin POC ABG HHb (Measured) ABG Methemoglobin Singh Test ABG Potassium A-a O2 Difference Respiratory Index Hgb O2 Saturation Glucose Lactate Vent Mode Mechanical Rate FiO2 Tidal Volume PEEP Sodium Potassium Chloride Carbon Dioxide Anion Gap BUN Creatinine Est GFR ( Amer) Est GFR (Non-Af Amer) POC Glucose (mg/dL) 245 H Random Glucose Hemoglobin A1c Lactic Acid Calcium Phosphorus Magnesium Total Bilirubin AST ALT Alkaline Phosphatase Total Creatine Kinase 26 L CK-MB (Mass) 0.96 Troponin I 0.0250 NT-Pro-B Natriuret Pep Total Protein Albumin Globulin Albumin/Globulin Ratio Triglycerides Cholesterol LDL Cholesterol Direct HDL Cholesterol Procalcitonin 0.06 L Free T4 TSH 3rd Generation Arterial Blood Potassium 01/19/17 01/19/17 01/19/17 05:22 05:39 06:23 WBC RBC Hgb Hct MCV MCH MCHC RDW Plt Count MPV Neut % (Auto) Lymph % (Auto) Tift % (Auto) Eos % (Auto) Baso % (Auto) Neut # Lymph # Tift # Eos # Baso # D-Dimer, Quantitative Puncture Site R brac pCO2 25 L pO2 189 H HCO3 27.3 ABG pH 7.59 H ABG Total CO2 24.8 ABG O2 Saturation 99.0 H ABG Base Excess 3.0 ABG Hemoglobin 10.5 L ABG Carboxyhemoglobin 1.4 POC ABG HHb (Measured) 1.0 ABG Methemoglobin 1.5 Singh Test Na ABG Potassium A-a O2 Difference 136.0 Respiratory Index 0.7 Hgb O2 Saturation 96.1 Glucose Lactate Vent Mode Prvc Mechanical Rate 16 FiO2 50.0 Tidal Volume 450 PEEP 5 Sodium 135 Potassium 3.2 L Chloride 104 Carbon Dioxide 28 Anion Gap 7 L BUN 21 H Creatinine 0.5 L Est GFR ( Amer) > 60 Est GFR (Non-Af Amer) > 60 POC Glucose (mg/dL) 165 H Random Glucose 163 H Hemoglobin A1c Lactic Acid Calcium 8.0 L Phosphorus 2.9 Magnesium 1.7 Total Bilirubin 0.4 AST 21 ALT 40 Alkaline Phosphatase 103 Total Creatine Kinase 25 L CK-MB (Mass) 0.72 Troponin I 0.0230 NT-Pro-B Natriuret Pep Total Protein 7.1 Albumin 2.9 L D Globulin 4.2 H Albumin/Globulin Ratio 0.7 L Triglycerides Cholesterol LDL Cholesterol Direct HDL Cholesterol Procalcitonin Free T4 TSH 3rd Generation Arterial Blood Potassium 01/19/17 01/19/17 06:26 11:31 WBC 6.3 D RBC 3.74 L Hgb 9.9 L D Hct 29.6 L MCV 79.1 L D MCH 26.4 L MCHC 33.4 RDW 14.6 H Plt Count 168 D MPV 8.2 Neut % (Auto) 47.5 L Lymph % (Auto) 40.7 H Tift % (Auto) 7.5 Eos % (Auto) 2.6 Baso % (Auto) 1.7 Neut # 3.0 Lymph # 2.5 Tift # 0.5 Eos # 0.2 Baso # 0.1 D-Dimer, Quantitative Puncture Site pCO2 pO2 HCO3 ABG pH ABG Total CO2 ABG O2 Saturation ABG Base Excess ABG Hemoglobin ABG Carboxyhemoglobin POC ABG HHb (Measured) ABG Methemoglobin Singh Test ABG Potassium A-a O2 Difference Respiratory Index Hgb O2 Saturation Glucose Lactate Vent Mode Mechanical Rate FiO2 Tidal Volume PEEP Sodium Potassium Chloride Carbon Dioxide Anion Gap BUN Creatinine Est GFR ( Amer) Est GFR (Non-Af Amer) POC Glucose (mg/dL) 319 H Random Glucose Hemoglobin A1c Lactic Acid Calcium Phosphorus Magnesium Total Bilirubin AST ALT Alkaline Phosphatase Total Creatine Kinase CK-MB (Mass) Troponin I NT-Pro-B Natriuret Pep Total Protein Albumin Globulin Albumin/Globulin Ratio Triglycerides Cholesterol LDL Cholesterol Direct HDL Cholesterol Procalcitonin Free T4 TSH 3rd Generation Arterial Blood Potassium EKG/Cardiology Studies: Cardiology / EKG Studies 01/18/17 15:37 ELECTROCARDIOGRAM Stat Comment: Mode Of Transportation: Reason For Exam: chest pain Fingerstick Blood Sugar Results: 319 Review of Systems - Review of Systems Systems not reviewed;Unavailable: Intubated Assessment/Plan - Assessment and Plan (Free Text) Assessment: Patient is an 81 year old female presenting to the hospital with vague chest pain that needed to be intubated due to respiratory failure from hypercapnia. Patient was transferred to the ICU for further evaluation. Plan: Pulmonary: Intubated (12/12) COPD CXR 01/19/17 -Stable position of lines and tubes. COPD. No focal consolidation. Pulmonary venous congestion. ABG - pCO2 25, pO2 189, HCO3 27.3, pH 7.59 on vent settings 450/50/16/5 - tolerated 4 hours on CPAP, continue CPAP trails WBC 6.3 Procalcitonin 0.06 Atrovent 0.5mg IH q6h PRN Azithromycin 500mg IVPB daily Aztreonam 2gm IVPB q8h Clindamycin 600mg IVPB q8h Blood Culture negative at [id number] CV: Cardio - Dr. Crowell consulted, help appreciated hx of Afib (currently sinus on monitor) HTN Trop 0.027/0.023 Pro-BNP 2310 Diltiazem 30mg PO qid Crestor 20mg PO HS Aspirin 81mg PO daily Metoprolol Tartrate 75mg PO q8h Losartan 100mg PO daily HCTZ 12.5mg PO daily Neuro: hx of seizures hx of CVA Propofol drip Keppra 750mg PO BID Endo: DM2 Hypothyroidism Lantus 10 units SC BIDAC - on hold ISS Synthroid 25mcg PO daily Prophylactic Care: Lovenox 40mg SC daily Protonix 40mg IVP daily Blorastor 250mg PO BID Tube feeding Case discussed with Dr. Dominic Bailey Bette PGY1 <Malachi Alfaro - Last Filed: 01/19/17 17:43> CCU Objective - Vital Signs / Intake & Output Vital Signs (Last 4 hours): Vital Signs Temp Pulse Resp BP Pulse Ox 01/19/17 16:00 97.5 F L 92 H 16 100 01/19/17 15:49 89 16 113/65 99 01/19/17 15:19 98 H 16 124/75 100 01/19/17 15:00 104 H 16 100 01/19/17 14:49 81 16 115/66 100 01/19/17 14:19 87 16 99/66 L 100 01/19/17 14:00 86 16 100 01/19/17 13:49 103 H 14 95/68 L 100 Intake and Output (Last 8hrs): Intake & Output 01/19/17 01/19/17 01/19/17 06:59 14:59 22:59 Intake Total 343.0 605.4 Output Total 370 245 50 Balance -27.0 360.4 -50 Weight 93 lb 0.561 oz Intake: IV 81.0 Intake, IV Amount 142.0 605.4 Left Medial Port Internal 100 200 Jugular Left Proximal Port 42.0 405.4 Internal Jugular Other 120 Output: Urine 370 245 50 Urine, Voided 370 245 50 - Medications Active Medications: Active Medications Generic Name Dose Route Start Last Admin Trade Name Freq PRN Reason Stop Dose Admin Acetaminophen 650 mg 01/17/17 21:49 01/18/17 15:23 Tylenol 325mg Tab PO 650 mg Q6 PRN Administration Pain, moderate (4-7) Aspirin 81 mg 01/18/17 10:00 01/19/17 09:57 Ecotrin PO 81 mg DAILY SCOTTY Administration Calcium Carbonate 500 mg 01/18/17 10:00 01/19/17 17:23 Oscal PO 500 mg BID SCOTTY Administration Diltiazem HCl 30 mg 01/17/17 22:00 01/19/17 17:23 Cardizem PO 30 mg QID SCOTTY Administration Enoxaparin Sodium 40 mg 01/18/17 10:00 01/19/17 09:29 Lovenox SC 40 mg DAILY SCOTTY Administration Folic Acid 1 mg 01/18/17 10:00 01/19/17 09:29 Folic Acid PO 1 mg DAILY SCOTTY Administration Hydrochlorothiazide 12.5 mg 01/18/17 10:00 01/19/17 09:29 Microzide PO 12.5 mg DAILY SCOTTY Administration Azithromycin 500 mg/ Sodium 250 mls @ 250 mls/hr 01/18/17 10:00 01/19/17 09: 59 Chloride IVPB 250 mls/hr DAILY SCOTTY Administration Propofol 1,000 mg in 100 mls @ 1.238 mls/hr 01/18/17 16:29 01/19/17 05:42 Diprivan IV 10.9 mcg/kg/min .Q24H PRN 2.7 mls/hr TITRATE PER MD ORDER Administration Protocol 5 MCG/KG/MIN Aztreonam 2 gm/ Sodium 100 mls @ 200 mls/hr 01/18/17 19:00 01/19/17 11:25 Chloride IVPB 200 mls/hr Q8H SCOTTY Administration Clindamycin Phosphate 600 mg/ 54 mls @ 100 mls/hr 01/18/17 22:00 01/19/17 13: 12 Sodium Chloride IVPB 100 mls/hr Q8 SCOTTY Administration Insulin Glargine 10 unit 01/18/17 07:30 01/19/17 07:50 Lantus SC Not Given BIDAC SCOTTY Insulin Human Regular 0 unit 01/18/17 21:15 01/19/17 12:07 Novolin R SC 4 unit Q6 SCOTTY Administration Protocol Ipratropium Rector 0.5 mg 01/18/17 15:39 Atrovent IH RQ6 PRN Shortness of Breath Levetiracetam 750 mg 01/18/17 10:00 01/19/17 17:23 Keppra PO 750 mg BID SCOTTY Administration Levothyroxine Sodium 25 mcg 01/18/17 06:30 01/19/17 06:33 Synthroid PO 25 mcg DAILY@0630 SCOT[facility] Administration Losartan Potassium 100 mg 01/18/17 10:00 01/19/17 09:29 Cozaar PO 100 mg DAILY SCOTTY Administration Magnesium Hydroxide 30 ml 01/17/17 21:49 Milk Of Magnesia PO DAILY PRN Constipation Metoprolol Tartrate 75 mg 01/17/17 22:00 01/19/17 13:13 Lopressor PO Not Given Q8 SCOTTY Pantoprazole Sodium 40 mg 01/19/17 10:00 01/19/17 09:29 Protonix Inj IVP 40 mg DAILY SCOTTY Administration Rosuvastatin Calcium 20 mg 01/18/17 22:00 01/18/17 21:15 Crestor PO 20 mg HS SCOTTY Administration Saccharomyces Boulardii 250 mg 01/18/17 18:00 01/19/17 17:23 Florastor PO 250 mg BID SCOTTY Administration - Patient Studies Lab Studies: Microbiology Studies 01/17/17 20:30 Blood Culture - Preliminary Blood-Venous NO GROWTH AFTER 24 HOURS 01/17/17 20:00 Blood Culture - Preliminary Blood-Venous NO GROWTH AFTER 24 HOURS Lab Studies 01/19/17 01/19/17 01/19/17 Range/Units 11:31 06:26 06:23 WBC 6.3 D (4.8-10.8) K/uL RBC 3.74 L (3.80-5.20) Mil/uL Hgb 9.9 L D (11.0-16.0) g/dL Hct 29.6 L (34.0-47.0) % MCV 79.1 L D (81.0-99.0) fL MCH 26.4 L (27.0-31.0) pg MCHC 33.4 (33.0-37.0) g/dL RDW 14.6 H (11.5-14.5) % Plt Count 168 D (130-400) K/uL MPV 8.2 (7.2-11.7) fL Neut % (Auto) 47.5 L (50.0-75.0) % Lymph % (Auto) 40.7 H (20.0-40.0) % Tift % (Auto) 7.5 (0.0-10.0) % Eos % (Auto) 2.6 (0.0-4.0) % Baso % (Auto) 1.7 (0.0-2.0) % Neut # 3.0 (1.8-7.0) K/uL Lymph # 2.5 (1.0-4.3) K/uL Tift # 0.5 (0.0-0.8) K/uL Eos # 0.2 (0.0-0.7) K/uL Baso # 0.1 (0.0-0.2) K/uL Puncture Site pCO2 (35-45) mm/Hg pO2 (80-100) mm/Hg HCO3 (21-28) mmol/L ABG pH (7.35-7.45) ABG Total CO2 (22-28) mmol/L ABG O2 Saturation (95-98) % ABG Base Excess (-2.0-3.0) mmol/L ABG Hemoglobin (11.7-17.4) g/dL ABG Carboxyhemoglobin (0.5-1.5) % POC ABG HHb (Measured) (0.0-5.0) % ABG Methemoglobin (0.0-3.0) % Singh Test A-a O2 Difference mm/Hg Respiratory Index Hgb O2 Saturation (95.0-98.0) % Vent Mode Mechanical Rate FiO2 % Tidal Volume PEEP Sodium 135 (132-148) mmol/L Potassium 3.2 L (3.6-5.2) mmol/L Chloride 104 (98-107) mmol/L Carbon Dioxide 28 (22-30) mmol/L Anion Gap 7 L (10-20) BUN 21 H (7-17) mg/dL Creatinine 0.5 L (0.7-1.2) mg/dL Est GFR ( Amer) > 60 Est GFR (Non-Af Amer) > 60 POC Glucose (mg/dL) 319 H (65-110) mg/dL Random Glucose 163 H (65-105) mg/dL Calcium 8.0 L (8.6-10.4) mg/dl Phosphorus 2.9 (2.5-4.5) mg/dL Magnesium 1.7 (1.6-2.3) mg/dL Total Bilirubin 0.4 (0.2-1.3) mg/dL AST 21 (14-36) U/L ALT 40 (9-52) U/L Alkaline Phosphatase 103 (38-126) U/L Total Creatine Kinase 25 L (30-135) U/L CK-MB (Mass) 0.72 (0.0-3.38) ng/mL Troponin I 0.0230 (0.00-0.120) ng/mL Total Protein 7.1 (6.3-8.3) g/dL Albumin 2.9 L D (3.5-5.0) g/dL Globulin 4.2 H (2.2-3.9) gm/dL Albumin/Globulin Ratio 0.7 L (1.0-2.1) Procalcitonin (0.19-0.49) NG/ML TSH 3rd Generation (0.46-4.68) mIU/L 01/19/17 01/19/17 01/19/17 Range/Units 05:39 05:22 00:26 WBC (4.8-10.8) K/uL RBC (3.80-5.20) Mil/uL Hgb (11.0-16.0) g/dL Hct (34.0-47.0) % MCV (81.0-99.0) fL MCH (27.0-31.0) pg MCHC (33.0-37.0) g/dL RDW (11.5-14.5) % Plt Count (130-400) K/uL MPV (7.2-11.7) fL Neut % (Auto) (50.0-75.0) % Lymph % (Auto) (20.0-40.0) % Tift % (Auto) (0.0-10.0) % Eos % (Auto) (0.0-4.0) % Baso % (Auto) (0.0-2.0) % Neut # (1.8-7.0) K/uL Lymph # (1.0-4.3) K/uL Tift # (0.0-0.8) K/uL Eos # (0.0-0.7) K/uL Baso # (0.0-0.2) K/uL Puncture Site R brac pCO2 25 L (35-45) mm/Hg pO2 189 H (80-100) mm/Hg HCO3 27.3 (21-28) mmol/L ABG pH 7.59 H (7.35-7.45) ABG Total CO2 24.8 (22-28) mmol/L ABG O2 Saturation 99.0 H (95-98) % ABG Base Excess 3.0 (-2.0-3.0) mmol/L ABG Hemoglobin 10.5 L (11.7-17.4) g/dL ABG Carboxyhemoglobin 1.4 (0.5-1.5) % POC ABG HHb (Measured) 1.0 (0.0-5.0) % ABG Methemoglobin 1.5 (0.0-3.0) % Singh Test Na A-a O2 Difference 136.0 mm/Hg Respiratory Index 0.7 Hgb O2 Saturation 96.1 (95.0-98.0) % Vent Mode Prvc Mechanical Rate 16 FiO2 50.0 % Tidal Volume 450 PEEP 5 Sodium (132-148) mmol/L Potassium (3.6-5.2) mmol/L Chloride (98-107) mmol/L Carbon Dioxide (22-30) mmol/L Anion Gap (10-20) BUN (7-17) mg/dL Creatinine (0.7-1.2) mg/dL Est GFR ( Amer) Est GFR (Non-Af Amer) POC Glucose (mg/dL) 165 H 245 H (65-110) mg/dL Random Glucose (65-105) mg/dL Calcium (8.6-10.4) mg/dl Phosphorus (2.5-4.5) mg/dL Magnesium (1.6-2.3) mg/dL Total Bilirubin (0.2-1.3) mg/dL AST (14-36) U/L ALT (9-52) U/L Alkaline Phosphatase (38-126) U/L Total Creatine Kinase (30-135) U/L CK-MB (Mass) (0.0-3.38) ng/mL Troponin I (0.00-0.120) ng/mL Total Protein (6.3-8.3) g/dL Albumin (3.5-5.0) g/dL Globulin (2.2-3.9) gm/dL Albumin/Globulin Ratio (1.0-2.1) Procalcitonin (0.19-0.49) NG/ML TSH 3rd Generation (0.46-4.68) mIU/L 01/18/17 01/18/17 01/18/17 Range/Units 22:29 22:29 19:08 WBC (4.8-10.8) K/uL RBC (3.80-5.20) Mil/uL Hgb (11.0-16.0) g/dL Hct (34.0-47.0) % MCV (81.0-99.0) fL MCH (27.0-31.0) pg MCHC (33.0-37.0) g/dL RDW (11.5-14.5) % Plt Count (130-400) K/uL MPV (7.2-11.7) fL Neut % (Auto) (50.0-75.0) % Lymph % (Auto) (20.0-40.0) % Tift % (Auto) (0.0-10.0) % Eos % (Auto) (0.0-4.0) % Baso % (Auto) (0.0-2.0) % Neut # (1.8-7.0) K/uL Lymph # (1.0-4.3) K/uL Tift # (0.0-0.8) K/uL Eos # (0.0-0.7) K/uL Baso # (0.0-0.2) K/uL Puncture Site pCO2 (35-45) mm/Hg pO2 (80-100) mm/Hg HCO3 (21-28) mmol/L ABG pH (7.35-7.45) ABG Total CO2 (22-28) mmol/L ABG O2 Saturation (95-98) % ABG Base Excess (-2.0-3.0) mmol/L ABG Hemoglobin (11.7-17.4) g/dL ABG Carboxyhemoglobin (0.5-1.5) % POC ABG HHb (Measured) (0.0-5.0) % ABG Methemoglobin (0.0-3.0) % Singh Test A-a O2 Difference mm/Hg Respiratory Index Hgb O2 Saturation (95.0-98.0) % Vent Mode Mechanical Rate FiO2 % Tidal Volume PEEP Sodium (132-148) mmol/L Potassium (3.6-5.2) mmol/L Chloride (98-107) mmol/L Carbon Dioxide (22-30) mmol/L Anion Gap (10-20) BUN (7-17) mg/dL Creatinine (0.7-1.2) mg/dL Est GFR ( Amer) Est GFR (Non-Af Amer) POC Glucose (mg/dL) 341 H (65-110) mg/dL Random Glucose (65-105) mg/dL Calcium (8.6-10.4) mg/dl Phosphorus (2.5-4.5) mg/dL Magnesium (1.6-2.3) mg/dL Total Bilirubin (0.2-1.3) mg/dL AST (14-36) U/L ALT (9-52) U/L Alkaline Phosphatase (38-126) U/L Total Creatine Kinase 26 L (30-135) U/L CK-MB (Mass) 0.96 (0.0-3.38) ng/mL Troponin I 0.0250 (0.00-0.120) ng/mL Total Protein (6.3-8.3) g/dL Albumin (3.5-5.0) g/dL Globulin (2.2-3.9) gm/dL Albumin/Globulin Ratio (1.0-2.1) Procalcitonin 0.06 L (0.19-0.49) NG/ML TSH 3rd Generation (0.46-4.68) mIU/L 01/18/17 Range/Units 16:17 WBC (4.8-10.8) K/uL RBC (3.80-5.20) Mil/uL Hgb (11.0-16.0) g/dL Hct (34.0-47.0) % MCV (81.0-99.0) fL MCH (27.0-31.0) pg MCHC (33.0-37.0) g/dL RDW (11.5-14.5) % Plt Count (130-400) K/uL MPV (7.2-11.7) fL Neut % (Auto) (50.0-75.0) % Lymph % (Auto) (20.0-40.0) % Tift % (Auto) (0.0-10.0) % Eos % (Auto) (0.0-4.0) % Baso % (Auto) (0.0-2.0) % Neut # (1.8-7.0) K/uL Lymph # (1.0-4.3) K/uL Tift # (0.0-0.8) K/uL Eos # (0.0-0.7) K/uL Baso # (0.0-0.2) K/uL Puncture Site pCO2 (35-45) mm/Hg pO2 (80-100) mm/Hg HCO3 (21-28) mmol/L ABG pH (7.35-7.45) ABG Total CO2 (22-28) mmol/L ABG O2 Saturation (95-98) % ABG Base Excess (-2.0-3.0) mmol/L ABG Hemoglobin (11.7-17.4) g/dL ABG Carboxyhemoglobin (0.5-1.5) % POC ABG HHb (Measured) (0.0-5.0) % ABG Methemoglobin (0.0-3.0) % Singh Test A-a O2 Difference mm/Hg Respiratory Index Hgb O2 Saturation (95.0-98.0) % Vent Mode Mechanical Rate FiO2 % Tidal Volume PEEP Sodium (132-148) mmol/L Potassium (3.6-5.2) mmol/L Chloride (98-107) mmol/L Carbon Dioxide (22-30) mmol/L Anion Gap (10-20) BUN (7-17) mg/dL Creatinine (0.7-1.2) mg/dL Est GFR ( Amer) Est GFR (Non-Af Amer) POC Glucose (mg/dL) (65-110) mg/dL Random Glucose (65-105) mg/dL Calcium (8.6-10.4) mg/dl Phosphorus (2.5-4.5) mg/dL Magnesium (1.6-2.3) mg/dL Total Bilirubin (0.2-1.3) mg/dL AST (14-36) U/L ALT (9-52) U/L Alkaline Phosphatase (38-126) U/L Total Creatine Kinase (30-135) U/L CK-MB (Mass) (0.0-3.38) ng/mL Troponin I (0.00-0.120) ng/mL Total Protein (6.3-8.3) g/dL Albumin (3.5-5.0) g/dL Globulin (2.2-3.9) gm/dL Albumin/Globulin Ratio (1.0-2.1) Procalcitonin (0.19-0.49) NG/ML TSH 3rd Generation 18.60 H (0.46-4.68) mIU/L Laboratory Results - last 24 hr 01/18/17 01/18/17 01/18/17 16:17 19:08 22:29 WBC RBC Hgb Hct MCV MCH MCHC RDW Plt Count MPV Neut % (Auto) Lymph % (Auto) Tift % (Auto) Eos % (Auto) Baso % (Auto) Neut # Lymph # Tift # Eos # Baso # Puncture Site pCO2 pO2 HCO3 ABG pH ABG Total CO2 ABG O2 Saturation ABG Base Excess ABG Hemoglobin ABG Carboxyhemoglobin POC ABG HHb (Measured) ABG Methemoglobin Singh Test A-a O2 Difference Respiratory Index Hgb O2 Saturation Vent Mode Mechanical Rate FiO2 Tidal Volume PEEP Sodium Potassium Chloride Carbon Dioxide Anion Gap BUN Creatinine Est GFR ( Amer) Est GFR (Non-Af Amer) POC Glucose (mg/dL) 341 H Random Glucose Calcium Phosphorus Magnesium Total Bilirubin AST ALT Alkaline Phosphatase Total Creatine Kinase 26 L CK-MB (Mass) 0.96 Troponin I 0.0250 Total Protein Albumin Globulin Albumin/Globulin Ratio Procalcitonin TSH 3rd Generation 18.60 H 01/18/17 01/19/17 01/19/17 22:29 00:26 05:22 WBC RBC Hgb Hct MCV MCH MCHC RDW Plt Count MPV Neut % (Auto) Lymph % (Auto) Tift % (Auto) Eos % (Auto) Baso % (Auto) Neut # Lymph # Tift # Eos # Baso # Puncture Site R brac pCO2 25 L pO2 189 H HCO3 27.3 ABG pH 7.59 H ABG Total CO2 24.8 ABG O2 Saturation 99.0 H ABG Base Excess 3.0 ABG Hemoglobin 10.5 L ABG Carboxyhemoglobin 1.4 POC ABG HHb (Measured) 1.0 ABG Methemoglobin 1.5 Singh Test Na A-a O2 Difference 136.0 Respiratory Index 0.7 Hgb O2 Saturation 96.1 Vent Mode Prvc Mechanical Rate 16 FiO2 50.0 Tidal Volume 450 PEEP 5 Sodium Potassium Chloride Carbon Dioxide Anion Gap BUN Creatinine Est GFR ( Amer) Est GFR (Non-Af Amer) POC Glucose (mg/dL) 245 H Random Glucose Calcium Phosphorus Magnesium Total Bilirubin AST ALT Alkaline Phosphatase Total Creatine Kinase CK-MB (Mass) Troponin I Total Protein Albumin Globulin Albumin/Globulin Ratio Procalcitonin 0.06 L TSH 3rd Generation 01/19/17 01/19/17 01/19/17 05:39 06:23 06:26 WBC 6.3 D RBC 3.74 L Hgb 9.9 L D Hct 29.6 L MCV 79.1 L D MCH 26.4 L MCHC 33.4 RDW 14.6 H Plt Count 168 D MPV 8.2 Neut % (Auto) 47.5 L Lymph % (Auto) 40.7 H Tift % (Auto) 7.5 Eos % (Auto) 2.6 Baso % (Auto) 1.7 Neut # 3.0 Lymph # 2.5 Tift # 0.5 Eos # 0.2 Baso # 0.1 Puncture Site pCO2 pO2 HCO3 ABG pH ABG Total CO2 ABG O2 Saturation ABG Base Excess ABG Hemoglobin ABG Carboxyhemoglobin POC ABG HHb (Measured) ABG Methemoglobin Singh Test A-a O2 Difference Respiratory Index Hgb O2 Saturation Vent Mode Mechanical Rate FiO2 Tidal Volume PEEP Sodium 135 Potassium 3.2 L Chloride 104 Carbon Dioxide 28 Anion Gap 7 L BUN 21 H Creatinine 0.5 L Est GFR ( Amer) > 60 Est GFR (Non-Af Amer) > 60 POC Glucose (mg/dL) 165 H Random Glucose 163 H Calcium 8.0 L Phosphorus 2.9 Magnesium 1.7 Total Bilirubin 0.4 AST 21 ALT 40 Alkaline Phosphatase 103 Total Creatine Kinase 25 L CK-MB (Mass) 0.72 Troponin I 0.0230 Total Protein 7.1 Albumin 2.9 L D Globulin 4.2 H Albumin/Globulin Ratio 0.7 L Procalcitonin TSH 3rd Generation 01/19/17 11:31 WBC RBC Hgb Hct MCV MCH MCHC RDW Plt Count MPV Neut % (Auto) Lymph % (Auto) Tift % (Auto) Eos % (Auto) Baso % (Auto) Neut # Lymph # Tift # Eos # Baso # Puncture Site pCO2 pO2 HCO3 ABG pH ABG Total CO2 ABG O2 Saturation ABG Base Excess ABG Hemoglobin ABG Carboxyhemoglobin POC ABG HHb (Measured) ABG Methemoglobin Singh Test A-a O2 Difference Respiratory Index Hgb O2 Saturation Vent Mode Mechanical Rate FiO2 Tidal Volume PEEP Sodium Potassium Chloride Carbon Dioxide Anion Gap BUN Creatinine Est GFR ( Amer) Est GFR (Non-Af Amer) POC Glucose (mg/dL) 319 H Random Glucose Calcium Phosphorus Magnesium Total Bilirubin AST ALT Alkaline Phosphatase Total Creatine Kinase CK-MB (Mass) Troponin I Total Protein Albumin Globulin Albumin/Globulin Ratio Procalcitonin TSH 3rd Generation Attending/Attestation - Attestation I have personally seen and examined this patient.: Yes I have fully participated in the care of the patient.: Yes I have reviewed all pertinent clinical information: Yes Notes (Text): 01/19/17 17:37 patient seen and examined in the intensive care unit. Case discussed with house staff in the morning around Patient much more awake and responsive Tolerated CPAP for 4 hours Continue antibiotics Continue OGT feeding Continue weaning Case discussed with cardiology
--- NOTE | 2017-01-19 20:23 | PN ---
SUBJECTIVE: The patient tolerated CPAP for 4 hours today; however, she was placed back on assisted ventilation, FiO2 at 40%. No reported hypertension, no reported supraventricular or ventricular arrhythmia. PHYSICAL EXAMINATION: VITAL SIGNS: Blood pressure 124/75, heart rate 98, temperature 97.5. HEENT: Conjunctival pallor. CHEST: Bilateral rhonchi. HEART: S1, S2, regular. EXTREMITIES: Significant contracture deformity. LABORATORY DATA: SMA-7: Sodium 135, potassium 3.2, chloride 104, CO2 of 28, glucose 163, BUN 21, creatinine 0.5. Hemoglobin and hematocrit 9.9 and 29.6, white count and platelet count are within normal limits. Chest x-ray report, stable position of lines and tubes. COPD. No focal consolidation. Pulmonary venous congestion. Blood culture is negative as of 24 hours. Echocardiography finding revealed moderately impaired left ventricular systolic function. Ejection fraction is estimated at 37% with global hypokinesis of the left ventricle. [id number] mitral insufficiency. Severe pulmonary hypertension. ASSESSMENT: 1. Respiratory failure. 2. Rule out underlying pneumonia. 3. Consider congestive heart failure. 4. Severe pulmonary hypertension. 5. Hypothyroidism. 6. History of supraventricular tachycardia. RECOMMENDATIONS: Continue current IV Zithromax and IV Azactam. Continue Cardizem at 300 mg q.i.d. Continue IV clindamycin 600 mg q. 8 hours. Continue Cozaar at 100 mg once a day, Crestor 20 mg once a day, Keppra at 750 mg twice a day, Lopressor at 75 mg was withheld today. Continue subcutaneous Lovenox at 40 mg once a day, continue hydrochlorothiazide 12.5 mg once a day, continue Synthroid at 25 mcg once a day. Florian Crowell MD
--- NOTE | 2017-01-19 23:46 | CP.PCM.PN ---
Subjective - Date & Time of Evaluation Date of Evaluation: 01/19/17 Time of Evaluation: 20:35 - Subjective Subjective: Patient much more awake and responsive, reamins on intubator Tolerated CPAP for 4 hours Continue antibiotics Continue OGT feeding Continue weaning Objective - Vital Signs/Intake and Output Vital Signs (last 24 hours): Temp Pulse Resp BP Pulse Ox 97.8 F 103 H 18 135/56 L 89 L 01/19/17 19:36 01/19/17 22:19 01/19/17 22:19 01/19/17 22:19 01/19/17 22:19 Intake and Output: 01/19/17 01/20/17 18:59 06:59 Intake Total 673.8 172.9 Output Total 330 105 Balance 343.8 67.9 - Medications Medications: Current Medications Acetaminophen (Tylenol 325mg Tab) 650 mg PO Q6 PRN PRN Reason: Pain, moderate (4-7) Last Admin: 01/18/17 15:23 Dose: 650 mg Aspirin (Ecotrin) 81 mg PO DAILY [facility] Last Admin: 01/19/17 09:57 Dose: 81 mg Calcium Carbonate (Oscal) 500 mg PO BID [facility] Last Admin: 01/19/17 17:23 Dose: 500 mg Diltiazem HCl (Cardizem) 30 mg PO QID [facility] Last Admin: 01/19/17 21:43 Dose: 30 mg Enoxaparin Sodium (Lovenox) 40 mg SC DAILY [facility] Last Admin: 01/19/17 09:29 Dose: 40 mg Folic Acid (Folic Acid) 1 mg PO DAILY [facility] Last Admin: 01/19/17 09:29 Dose: 1 mg Hydrochlorothiazide (Microzide) 12.5 mg PO DAILY [facility] Last Admin: 01/19/17 09:29 Dose: 12.5 mg Azithromycin 500 mg/ Sodium (Chloride) 250 mls @ 250 mls/hr IVPB DAILY [facility] Last Admin: 01/19/17 09:59 Dose: 250 mls/hr Propofol (Diprivan) 1,000 mg in 100 mls @ 1.238 mls/hr IV .Q24H PRN; Protocol; 5 MCG/KG/MIN PRN Reason: TITRATE PER MD ORDER Last Titration: 01/19/17 19:00 Dose: 5.65 mcg/kg/min, 1.4 mls/hr Aztreonam 2 gm/ Sodium (Chloride) 100 mls @ 200 mls/hr IVPB Q8H [facility] Last Admin: 01/19/17 18:22 Dose: 200 mls/hr Clindamycin Phosphate 600 mg/ (Sodium Chloride) 54 mls @ 100 mls/hr IVPB Q8 [facility] Last Admin: 01/19/17 21:43 Dose: 100 mls/hr Insulin Glargine (Lantus) 10 unit SC BIDAC [facility] Last Admin: 01/19/17 07:50 Dose: Not Given Insulin Human Regular (Novolin R) 0 unit SC Q6 SCOTTY PRN Reason: Protocol Last Admin: 01/19/17 18:24 Dose: 2 unit Ipratropium [place] (Atrovent) 0.5 mg IH RQ6 PRN PRN Reason: Shortness of Breath Levetiracetam (Keppra) 750 mg PO BID [facility] Last Admin: 01/19/17 17:23 Dose: 750 mg Levothyroxine Sodium (Synthroid) 25 mcg PO DAILY@0630 [facility] Last Admin: 01/19/17 06:33 Dose: 25 mcg Losartan Potassium (Cozaar) 100 mg PO DAILY [facility] Last Admin: 01/19/17 09:29 Dose: 100 mg Magnesium Hydroxide (Milk Of Magnesia) 30 ml PO DAILY PRN PRN Reason: Constipation Metoprolol Tartrate (Lopressor) 75 mg PO Q8 [facility] Last Admin: 01/19/17 22:31 Dose: Not Given Pantoprazole Sodium (Protonix Inj) 40 mg IVP DAILY [facility] Last Admin: 01/19/17 09:29 Dose: 40 mg Rosuvastatin Calcium (Crestor) 20 mg PO HS [facility] Last Admin: 01/19/17 21:43 Dose: 20 mg Saccharomyces Boulardii (Florastor) 250 mg PO BID [facility] Last Admin: 01/19/17 17:23 Dose: 250 mg - Labs Labs: 01/19/17 06:26 01/19/17 06:23 - Constitutional Appears: No Acute Distress - Eye Exam Eye Exam: EOMI, Normal appearance, PERRL Pupil Exam: NORMAL ACCOMODATION, PERRL - ENT Exam ENT Exam: Mucous Membranes Moist, Normal Exam - Neck Exam Neck Exam: Full ROM, Normal Inspection. absent: Lymphadenopathy - Respiratory Exam Respiratory Exam: Clear to Ausculation Bilateral, NORMAL BREATHING PATTERN - Cardiovascular Exam Cardiovascular Exam: REGULAR RHYTHM, +S1, +S2. absent: Murmur - GI/Abdominal Exam GI & Abdominal Exam: Soft, Normal Bowel Sounds. absent: Tenderness - Rectal Exam Rectal Exam: Deferred Assessment and Plan (1) Respiratory failure Status: Acute (2) Seizure disorder Status: Acute (3) Uncontrolled blood glucose Status: Acute
[2017-01-20] MEDS: Aztreonam 2 GM in Sodium Chloride 0.9% 100 ML IVPB SCH ×3 (02:23→18:19)
[2017-01-20] MEDS: (Novolin R) Insulin Human Regular 100 units/ml vial SC SCH ×4 (02:40→18:38)
[2017-01-20] MEDS: Propofol 10 mg/ml 1,000 MG/100 ML VIAL IV PRN (05:26)
[2017-01-20] MEDS: Levothyroxine 25 MCG TAB PO SCH (05:30)
[2017-01-20 06:21] LABS: BASO # 0.1 K/uL (0.0-0.2); BASO % 1.4 % (0.0-2.0); EOS # 0.1 K/uL (0.0-0.7); EOS % 1.9 % (0.0-4.0); HEMOGLOBIN 9.5 g/dL (11.0-16.0); LYMPH # 1.7 K/uL (1.0-4.3); LYMPH % 30.9 % (20.0-40.0); MEAN CELL VOLUME 80.5 fL (81.0-99.0); MEAN CORPUSCULAR HEMOGLOBIN 25.9 pg (27.0-31.0); MEAN CORPUSCULAR HGB CONC 32.2 g/dL (33.0-37.0); MEAN PLATELET VOLUME 8.3 fL (7.2-11.7); MONO # 0.5 K/uL (0.0-0.8); MONO % 8.6 % (0.0-10.0); NEUT # 3.2 K/uL (1.8-7.0); NEUT % 57.2 % (50.0-75.0); NRBC % 0.1 % (0.0-2.0); RBC 3.66 Mil/uL (3.80-5.20); RED CELL DISTRIBUTION WIDTH 14.8 % (11.5-14.5); WHITE BLOOD COUNT 5.6 K/uL (4.8-10.8)
[2017-01-20 06:34] LABS: ARTERIAL BLOOD GAS HCO3 22.5 mmol/L (21-28); ARTERIAL BLOOD GAS HEMOGLOBIN 9.9 g/dL (11.7-17.4); ARTERIAL BLOOD GAS O2 SAT 99.5 % (95-98); ARTERIAL BLOOD GAS PCO2 28 mm/Hg (35-45); ARTERIAL BLOOD GAS PH 7.46 (7.35-7.45); ARTERIAL BLOOD GAS PO2 147 mm/Hg (80-100); ARTERIAL BLOOD GAS TCO2 20.8 mmol/L (22-28)
[2017-01-20 06:51] LABS: ALBUMIN 3.1 g/dL (3.5-5.0); ALT/SGPT 41 U/L (9-52); AST/SGOT 24 U/L (14-36); BLOOD UREA NITROGEN 27 mg/dL (7-17); CALCIUM 7.7 mg/dl (8.6-10.4); GFR AFRICAN-AMERICAN > 60; GFR NON-AFRICAN AMERICAN > 60; MAGNESIUM 1.7 mg/dL (1.6-2.3)
--- NOTE | 2017-01-20 08:44 | RAD ---
Chest x-ray single frontal view History: Intubated. Comparison: 01/19/2017 Findings: Lines and tubes in stable position. Biapical pleural thickening with upper lobe granulomatous changes. Diffuse increased interstitial lung markings. Scattered nodularity throughout the right lung. Calcification at the aortic knob. Cardiomegaly. Tortuous ectatic aorta. Multiple bilateral rib deformities. Right humeral deformity. Multiple lobulated calcifications within the right breast. Impression: No significant interval change.
[2017-01-20] MEDS: Saccharomyces Boulardi 250 mg Cap PO SCH ×2 (09:52→17:26)
[2017-01-20] MEDS: Enoxaparin 40 mg Syringe SC SCH (09:52)
[2017-01-20] MEDS: Azithromycin 500 MG in Sodium Chloride 0.9% 250 ML IVPB SCH (09:59)
--- NOTE | 2017-01-20 15:22 | PN ---
DATE: SUBJECTIVE: The patient is currently on CPAP, tolerating CPAP, and is awaiting extubation. No reported hypotension or supraventricular tachycardia. PHYSICAL EXAMINATION: VITAL SIGNS: Blood pressure 204/101, heart rate 115, temperature 97.5, respirations 30. HEENT: Pale conjunctivae. CHEST: Bilateral rhonchi. HEART: S1 and S2, regular. EXTREMITIES: Severe contracture deformity. LABORATORY DATA: BUN and creatinine 27 and 0.5, glucose 302. The rest of BMP is within normal limits. Calcium is 7.7. Hemoglobin and hematocrit 9.5 and 29.5, white count and platelet count are within normal limits. Today's chest x-ray revealed no significant interval change. Urine culture is positive for Gram-negative rods and yeast species. The colony count for Gram-negative rods is less than 10,000 and the colony count for yeast species more than 100,000. ASSESSMENT: 1. Respiratory failure. 2. History of supraventricular tachycardia. 3. History of multiple falls. 4. Urinary tract infection. 5. Systolic heart failure. RECOMMENDATIONS: Continue IV Azactam and IV Zithromax. Continue Synthroid 25 mcg once a day. Discontinue hydrochlorothiazide and start Aldactone at 12.5 mg once a day and continue Lopressor 75 mg q. 8 hours. Start enalapril 2.5 mg once a day. Florian Crowell MD
--- NOTE | 2017-01-20 17:56 | CP.PCM.CON ---
History of Present Illness - History of Present Illness History of Present Illness: reason for consultation: respiratory failure on ventilatory support 81 year old that was brought to the hospital for a complaint of vague chest pain and vomiting. Patient was a [employer] due to respiratory distress. Per EQU[employer]OCI[employer] note , she was saturating in the 80s on room air, refusing to wear nasal cannula. After breathing treatments, patient continued to have difficulty breathing. She began to desaturating and appeared diaphoretic. She was intubated on the floor and transferred to ICU. ROS unattainable. PMH: Anxiety, afib, depression, seizure, hypothyroidism, HTN, hx of multiple falls (with SDH) and hx of CVA PSH: Right Hip repair; Crainiotomy (2 years ago) Social: from half-way Allergies: Penicillin, Shellfish Review of Systems - Review of Systems Systems not reviewed;Unavailable: Intubated Past Patient History - Past Medical History & Family History Past Medical History?: Yes - Past Social History Smoking Status: Never Smoked - CARDIAC Hx Cardiac Disorders: Yes (A.Fib) Hx Hypertension: Yes - PULMONARY Hx Respiratory Disorders: No - NEUROLOGICAL Hx Seizures: Yes - HEENT Hx HEENT Problems: No - RENAL Hx Chronic Kidney Disease: No - ENDOCRINE/METABOLIC Hx Diabetes Mellitus Type 2: Yes Hx Hypothyroidism: Yes - HEMATOLOGICAL/ONCOLOGICAL Hx Blood Disorders: No - INTEGUMENTARY Hx Dermatological Problems: No - MUSCULOSKELETAL/RHEUMATOLOGICAL Hx Falls: Yes Hx Fractures: Yes (Left Tibia) - GASTROINTESTINAL Hx Gastritis: Yes - GENITOURINARY/GYNECOLOGICAL Hx Genitourinary Disorders: No - PSYCHIATRIC Hx Anxiety: Yes Hx Depression: Yes Hx Substance Use: No - SURGICAL HISTORY Hx Surgeries: Yes Other/Comment: Effusion/fx of lt knee. Subdural hematoma Crainiotomy 2 years ago. hip repair - ANESTHESIA Hx Anesthesia: Yes Hx Anesthesia Reactions: No Hx Malignant Hyperthermia: No Meds Allergies/Adverse Reactions: Allergies Allergy/AdvReac Type Severity Reaction Status Date / Time Penicillins Allergy Verified 01/17/17 18:32 shellfish derived Allergy Verified 01/17/17 18:32 tuna Allergy Uncoded 01/17/17 18:32 - Medications Medications: Current Medications Acetaminophen (Tylenol 325mg Tab) 650 mg PO Q6 PRN PRN Reason: Pain, moderate (4-7) Last Admin: 01/18/17 15:23 Dose: 650 mg Aspirin (Ecotrin) 81 mg PO DAILY [facility] Last Admin: 01/20/17 09:52 Dose: 81 mg Calcium Carbonate (Oscal) 500 mg PO BID [facility] Last Admin: 01/20/17 17:26 Dose: 500 mg Diltiazem HCl (Cardizem) 30 mg PO QID [facility] Last Admin: 01/20/17 17:26 Dose: 30 mg Enalapril Maleate (Vasotec) 2.5 mg PO DAILY [facility] Enoxaparin Sodium (Lovenox) 40 mg SC DAILY [facility] Last Admin: 01/20/17 09:52 Dose: 40 mg Folic Acid (Folic Acid) 1 mg PO DAILY [facility] Last Admin: 01/20/17 09:54 Dose: 1 mg Azithromycin 500 mg/ Sodium (Chloride) 250 mls @ 250 mls/hr IVPB DAILY [facility] Last Admin: 01/20/17 09:59 Dose: 250 mls/hr Propofol (Diprivan) 1,000 mg in 100 mls @ 1.238 mls/hr IV .Q24H PRN; Protocol; 5 MCG/KG/MIN PRN Reason: TITRATE PER MD ORDER Last Admin: 01/20/17 05:26 Dose: 10.9 mcg/kg/min, 2.7 mls/hr Aztreonam 2 gm/ Sodium (Chloride) 100 mls @ 200 mls/hr IVPB Q8H [facility] Last Admin: 01/20/17 11:09 Dose: 200 mls/hr Clindamycin Phosphate 600 mg/ (Sodium Chloride) 54 mls @ 100 mls/hr IVPB Q8 [facility] Last Admin: 01/20/17 13:52 Dose: 100 mls/hr Insulin Glargine (Lantus) 10 unit SC BIDAC [facility] Last Admin: 01/19/17 07:50 Dose: Not Given Insulin Human Regular (Novolin R) 0 unit SC Q6 [facility] PRN Reason: Protocol Last Admin: 01/20/17 12:00 Dose: Not Given Ipratropium [place] (Atrovent) 0.5 mg IH RQ6 PRN PRN Reason: Shortness of Breath Levetiracetam (Keppra) 750 mg PO BID [facility] Last Admin: 01/20/17 17:26 Dose: 750 mg Levothyroxine Sodium (Synthroid) 25 mcg PO DAILY@0630 [facility] Last Admin: 01/20/17 05:30 Dose: 25 mcg Losartan Potassium (Cozaar) 100 mg PO DAILY [facility] Last Admin: 01/20/17 09:52 Dose: 100 mg Magnesium Hydroxide (Milk Of Magnesia) 30 ml PO DAILY PRN PRN Reason: Constipation Metoprolol Tartrate (Lopressor) 75 mg PO Q8 [facility] Last Admin: 01/20/17 14:21 Dose: 75 mg Pantoprazole Sodium (Protonix Inj) 40 mg IVP DAILY [facility] Last Admin: 01/20/17 09:52 Dose: 40 mg Rosuvastatin Calcium (Crestor) 20 mg PO HS [facility] Last Admin: 01/19/17 21:43 Dose: 20 mg Saccharomyces Boulardii (Florastor) 250 mg PO BID [facility] Last Admin: 01/20/17 17:26 Dose: 250 mg Spironolactone (Aldactone) 12.5 mg PO BID [facility] Last Admin: 01/20/17 17:26 Dose: 12.5 mg Physical Exam - Head Exam Head Exam: ATRAUMATIC, NORMOCEPHALIC - ENT Exam ENT Exam: Mucous Membranes Moist - Neck Exam Neck exam: Positive for: Normal Inspection - Respiratory Exam Respiratory Exam: Decreased Breath Sounds - Cardiovascular Exam Cardiovascular Exam: REGULAR RHYTHM - GI/Abdominal Exam GI & Abdominal Exam: Normal Bowel Sounds Results - Vital Signs Recent Vital Signs: Last Vital Signs Temp 97.1 F L 01/20/17 16:00 Pulse 74 01/20/17 16:05 Resp 14 01/20/17 16:05 BP 135/66 01/20/17 16:05 Pulse Ox 100 01/20/17 16:00 - Labs Result Diagrams: 01/20/17 06:16 01/20/17 06:16 Labs: Laboratory Results - last 24 hr 01/19/17 01/19/17 01/19/17 18:16 20:07 23:44 WBC RBC Hgb Hct MCV MCH MCHC RDW Plt Count MPV Neut % (Auto) Lymph % (Auto) [place] % (Auto) Eos % (Auto) Baso % (Auto) Neut # Lymph # [place] # Eos # Baso # Puncture Site pCO2 pO2 HCO3 ABG pH ABG Total CO2 ABG O2 Saturation ABG Base Excess ABG Hemoglobin ABG Carboxyhemoglobin POC ABG HHb (Measured) ABG Methemoglobin Singh Test A-a O2 Difference Respiratory Index Hgb O2 Saturation Vent Mode Mechanical Rate FiO2 Tidal Volume PEEP Sodium Potassium Chloride Carbon Dioxide Anion Gap BUN Creatinine Est GFR ( Amer) Est GFR (Non-Af Amer) POC Glucose (mg/dL) 201 H 189 H 166 H Random Glucose Calcium Phosphorus Magnesium Total Bilirubin AST ALT Alkaline Phosphatase Total Protein Albumin Globulin Albumin/Globulin Ratio 01/20/17 01/20/17 01/20/17 05:03 05:21 06:16 WBC 5.6 RBC 3.66 L Hgb 9.5 L Hct 29.5 L MCV 80.5 L MCH 25.9 L MCHC 32.2 L RDW 14.8 H Plt Count 192 MPV 8.3 Neut % (Auto) 57.2 Lymph % (Auto) 30.9 [place] % (Auto) 8.6 Eos % (Auto) 1.9 Baso % (Auto) 1.4 Neut # 3.2 Lymph # 1.7 [place] # 0.5 Eos # 0.1 Baso # 0.1 Puncture Site R b pCO2 28 L pO2 147 H HCO3 22.5 ABG pH 7.46 H ABG Total CO2 20.8 L ABG O2 Saturation 99.5 H ABG Base Excess -3.1 L ABG Hemoglobin 9.9 L ABG Carboxyhemoglobin 1.8 H POC ABG HHb (Measured) 0.5 ABG Methemoglobin 1.0 Singh Test Na A-a O2 Difference 103.0 Respiratory Index 0.7 Hgb O2 Saturation 96.7 Vent Mode Prvc Mechanical Rate 16 FiO2 40.0 Tidal Volume 450 PEEP 5 Sodium Potassium Chloride Carbon Dioxide Anion Gap BUN Creatinine Est GFR ( Amer) Est GFR (Non-Af Amer) POC Glucose (mg/dL) 292 H Random Glucose Calcium Phosphorus Magnesium Total Bilirubin AST ALT Alkaline Phosphatase Total Protein Albumin Globulin Albumin/Globulin Ratio 01/20/17 06:16 WBC RBC Hgb Hct MCV MCH MCHC RDW Plt Count MPV Neut % (Auto) Lymph % (Auto) [place] % (Auto) Eos % (Auto) Baso % (Auto) Neut # Lymph # [place] # Eos # Baso # Puncture Site pCO2 pO2 HCO3 ABG pH ABG Total CO2 ABG O2 Saturation ABG Base Excess ABG Hemoglobin ABG Carboxyhemoglobin POC ABG HHb (Measured) ABG Methemoglobin Singh Test A-a O2 Difference Respiratory Index Hgb O2 Saturation Vent Mode Mechanical Rate FiO2 Tidal Volume PEEP Sodium 135 Potassium 4.8 Chloride 105 Carbon Dioxide 23 Anion Gap 12 BUN 27 H Creatinine 0.5 L Est GFR ( Amer) > 60 Est GFR (Non-Af Amer) > 60 POC Glucose (mg/dL) Random Glucose 302 H Calcium 7.7 L Phosphorus 3.2 Magnesium 1.7 Total Bilirubin 0.6 AST 24 ALT 41 Alkaline Phosphatase 136 H D Total Protein 6.1 L Albumin 3.1 L Globulin 3.0 Albumin/Globulin Ratio 1.0 Assessment & Plan (1) Respiratory failure Status: Acute Comment: Continue ventilatory support and wean as tolerated. Continue IV antibiotics. Followup ABG and chest x-ray. Continue OGT feeding (2) Pneumonia Status: Acute
--- NOTE | 2017-01-20 19:46 | CP.CCUPN ---
<Leo Amos - Last Filed: 01/20/17 19:36> CCU Subjective - Physician Review Subjective (Free Text): PGY1 ICU Progress Note for Dr. Sanderson Patient was seen and examined at bedside this morning. No acute events overnight. Patient is intubated. ROS unattainable. CCU Objective - Vital Signs / Intake & Output Vital Signs (Last 4 hours): Vital Signs Temp Pulse Resp BP Pulse Ox 01/20/17 18:00 88 16 100 01/20/17 17:06 80 16 124/73 100 01/20/17 17:00 90 16 100 01/20/17 16:05 74 14 135/66 01/20/17 16:00 97.1 F L 71 16 100 Intake and Output (Last 8hrs): Intake & Output 01/20/17 01/20/17 01/20/17 06:59 14:59 22:59 Intake Total 465.6 580.5 275 Output Total 300 130 195 Balance 165.6 450.5 80 Intake: IV 64 Intake, IV Amount 171.6 405.5 100 Left Medial Port Internal 21.6 5.5 Jugular Left Proximal Port 150 400 100 Internal Jugular Tube Feeding 230 175 175 Output: Urine 300 130 195 Urine, Voided 300 130 195 Stool 0 - Physical Exam Head: Positive for: Atraumatic, Normocephalic Pupils: Positive for: PERRL Extroacular Muscles: Positive for: EOMI Mouth: Positive for: Other (intubated) Respiratory/Chest: Positive for: Clear to Auscultation, Other (intubated). Negative for: Respiratory Distress Cardiovascular: Positive for: Regular Rate and Rhythm Abdomen: Negative for: Tenderness, Distention, Peritoneal Signs Upper Extremity: Positive for: Normal Inspection. Negative for: Edema Lower Extremity: Positive for: Normal Inspection. Negative for: Edema Neurological: Positive for: Other (intubated) Skin: Positive for: Warm, Dry Psychiatric: Positive for: Alert, Other (intubated) - Medications Active Medications: Active Medications Generic Name Dose Route Start Last Admin Trade Name Freq PRN Reason Stop Dose Admin Acetaminophen 650 mg 01/17/17 21:49 01/18/17 15:23 Tylenol 325mg Tab PO 650 mg Q6 PRN Administration Pain, moderate (4-7) Aspirin 81 mg 01/18/17 10:00 01/20/17 09:52 Ecotrin PO 81 mg DAILY SCOT[facility] Administration Calcium Carbonate 500 mg 01/18/17 10:00 01/20/17 17:26 Oscal PO 500 mg BID SCOT[facility] Administration Diltiazem HCl 30 mg 01/17/17 22:00 01/20/17 17:26 Cardizem PO 30 mg QID SCOTTY Administration Enalapril Maleate 2.5 mg 01/21/17 10:00 Vasotec PO DAILY [facility]OT[facility] Enoxaparin Sodium 40 mg 01/18/17 10:00 01/20/17 09:52 Lovenox SC 40 mg DAILY [facility]OT[facility] Administration Folic Acid 1 mg 01/18/17 10:00 01/20/17 09:54 Folic Acid PO 1 mg DAILY [facility] Administration Azithromycin 500 mg/ Sodium 250 mls @ 250 mls/hr 01/18/17 10:00 01/20/17 09: 59 Chloride IVPB 250 mls/hr DAILY [facility] Administration Propofol 1,000 mg in 100 mls @ 1.238 mls/hr 01/18/17 16:29 01/20/17 05:26 Diprivan IV 10.9 mcg/kg/min .Q24H PRN 2.7 mls/hr TITRATE PER MD ORDER Administration Protocol 5 MCG/KG/MIN Aztreonam 2 gm/ Sodium 100 mls @ 200 mls/hr 01/18/17 19:00 01/20/17 18:19 Chloride IVPB 200 mls/hr Q8H [facility] Administration Clindamycin Phosphate 600 mg/ 54 mls @ 100 mls/hr 01/18/17 22:00 01/20/17 13: 52 Sodium Chloride IVPB 100 mls/hr Q8 [facility] Administration Insulin Glargine 10 unit 01/18/17 07:30 01/19/17 07:50 Lantus SC Not Given BIDAC [facility] Insulin Human Regular 0 unit 01/18/17 21:15 01/20/17 18:38 Novolin R SC 5 unit Q6 SCOT[facility] Administration Protocol Ipratropium [place] 0.5 mg 01/18/17 15:39 Atrovent IH RQ6 PRN Shortness of Breath Levetiracetam 750 mg 01/18/17 10:00 01/20/17 17:26 Keppra PO 750 mg BID [facility] Administration Levothyroxine Sodium 25 mcg 01/18/17 06:30 01/20/17 05:30 Synthroid PO 25 mcg DAILY@0630 [facility] Administration Losartan Potassium 100 mg 01/18/17 10:00 01/20/17 09:52 Cozaar PO 100 mg DAILY [facility] Administration Magnesium Hydroxide 30 ml 01/17/17 21:49 Milk Of Magnesia PO DAILY PRN Constipation Metoprolol Tartrate 75 mg 01/17/17 22:00 01/20/17 14:21 Lopressor PO 75 mg Q8 [facility]OT[facility] Administration Pantoprazole Sodium 40 mg 01/19/17 10:00 01/20/17 09:52 Protonix Inj IVP 40 mg DAILY [facility] Administration Rosuvastatin Calcium 20 mg 01/18/17 22:00 01/19/17 21:43 Crestor PO 20 mg HS [facility]OT[facility] Administration Saccharomyces Boulardii 250 mg 01/18/17 18:00 01/20/17 17:26 Florastor PO 250 mg BID [facility] Administration Spironolactone 12.5 mg 01/20/17 18:00 01/20/17 17:26 Aldactone PO 12.5 mg BID SCOT[facility] Administration - Patient Studies Lab Studies: Microbiology Studies 01/18/17 17:48 Urine Culture - Preliminary Urine,Catheterized Gram Negative Jose Eduardo Yeast Species 01/17/17 20:30 Blood Culture - Preliminary Blood-Venous NO GROWTH AFTER 48 HOURS 01/17/17 20:00 Blood Culture - Preliminary Blood-Venous NO GROWTH AFTER 48 HOURS 01/18/17 18:44 MRSA Culture (Admit) - Final Nose MRSA NOT DETECTED Lab Studies 01/20/17 01/20/17 01/20/17 Range/Units 18:31 06:16 06:16 WBC 5.6 (4.8-10.8) K/uL RBC 3.66 L (3.80-5.20) Mil/uL Hgb 9.5 L (11.0-16.0) g/dL Hct 29.5 L (34.0-47.0) % MCV 80.5 L (81.0-99.0) fL MCH 25.9 L (27.0-31.0) pg MCHC 32.2 L (33.0-37.0) g/dL RDW 14.8 H (11.5-14.5) % Plt Count 192 (130-400) K/uL MPV 8.3 (7.2-11.7) fL Neut % (Auto) 57.2 (50.0-75.0) % Lymph % (Auto) 30.9 (20.0-40.0) % [place] % (Auto) 8.6 (0.0-10.0) % Eos % (Auto) 1.9 (0.0-4.0) % Baso % (Auto) 1.4 (0.0-2.0) % Neut # 3.2 (1.8-7.0) K/uL Lymph # 1.7 (1.0-4.3) K/uL [place] # 0.5 (0.0-0.8) K/uL Eos # 0.1 (0.0-0.7) K/uL Baso # 0.1 (0.0-0.2) K/uL Puncture Site pCO2 (35-45) mm/Hg pO2 (80-100) mm/Hg HCO3 (21-28) mmol/L ABG pH (7.35-7.45) ABG Total CO2 (22-28) mmol/L ABG O2 Saturation (95-98) % ABG Base Excess (-2.0-3.0) mmol/L ABG Hemoglobin (11.7-17.4) g/dL ABG Carboxyhemoglobin (0.5-1.5) % POC ABG HHb (Measured) (0.0-5.0) % ABG Methemoglobin (0.0-3.0) % Singh Test A-a O2 Difference mm/Hg Respiratory Index Hgb O2 Saturation (95.0-98.0) % Vent Mode Mechanical Rate FiO2 % Tidal Volume PEEP Sodium 135 (132-148) mmol/L Potassium 4.8 (3.6-5.2) mmol/L Chloride 105 (98-107) mmol/L Carbon Dioxide 23 (22-30) mmol/L Anion Gap 12 (10-20) BUN 27 H (7-17) mg/dL Creatinine 0.5 L (0.7-1.2) mg/dL Est GFR ( Amer) > 60 Est GFR (Non-Af Amer) > 60 POC Glucose (mg/dL) 382 H (65-110) mg/dL Random Glucose 302 H (65-105) mg/dL Calcium 7.7 L (8.6-10.4) mg/dl Phosphorus 3.2 (2.5-4.5) mg/dL Magnesium 1.7 (1.6-2.3) mg/dL Total Bilirubin 0.6 (0.2-1.3) mg/dL AST 24 (14-36) U/L ALT 41 (9-52) U/L Alkaline Phosphatase 136 H D (38-126) U/L Total Protein 6.1 L (6.3-8.3) g/dL Albumin 3.1 L (3.5-5.0) g/dL Globulin 3.0 (2.2-3.9) gm/dL Albumin/Globulin Ratio 1.0 (1.0-2.1) 01/20/17 01/20/17 01/19/17 Range/Units 05:21 05:03 23:44 WBC (4.8-10.8) K/uL RBC (3.80-5.20) Mil/uL Hgb (11.0-16.0) g/dL Hct (34.0-47.0) % MCV (81.0-99.0) fL MCH (27.0-31.0) pg MCHC (33.0-37.0) g/dL RDW (11.5-14.5) % Plt Count (130-400) K/uL MPV (7.2-11.7) fL Neut % (Auto) (50.0-75.0) % Lymph % (Auto) (20.0-40.0) % [place] % (Auto) (0.0-10.0) % Eos % (Auto) (0.0-4.0) % Baso % (Auto) (0.0-2.0) % Neut # (1.8-7.0) K/uL Lymph # (1.0-4.3) K/uL [place] # (0.0-0.8) K/uL Eos # (0.0-0.7) K/uL Baso # (0.0-0.2) K/uL Puncture Site R b pCO2 28 L (35-45) mm/Hg pO2 147 H (80-100) mm/Hg HCO3 22.5 (21-28) mmol/L ABG pH 7.46 H (7.35-7.45) ABG Total CO2 20.8 L (22-28) mmol/L ABG O2 Saturation 99.5 H (95-98) % ABG Base Excess -3.1 L (-2.0-3.0) mmol/L ABG Hemoglobin 9.9 L (11.7-17.4) g/dL ABG Carboxyhemoglobin 1.8 H (0.5-1.5) % POC ABG HHb (Measured) 0.5 (0.0-5.0) % ABG Methemoglobin 1.0 (0.0-3.0) % Singh Test Na A-a O2 Difference 103.0 mm/Hg Respiratory Index 0.7 Hgb O2 Saturation 96.7 (95.0-98.0) % Vent Mode Prvc Mechanical Rate 16 FiO2 40.0 % Tidal Volume 450 PEEP 5 Sodium (132-148) mmol/L Potassium (3.6-5.2) mmol/L Chloride (98-107) mmol/L Carbon Dioxide (22-30) mmol/L Anion Gap (10-20) BUN (7-17) mg/dL Creatinine (0.7-1.2) mg/dL Est GFR ( Amer) Est GFR (Non-Af Amer) POC Glucose (mg/dL) 292 H 166 H (65-110) mg/dL Random Glucose (65-105) mg/dL Calcium (8.6-10.4) mg/dl Phosphorus (2.5-4.5) mg/dL Magnesium (1.6-2.3) mg/dL Total Bilirubin (0.2-1.3) mg/dL AST (14-36) U/L ALT (9-52) U/L Alkaline Phosphatase (38-126) U/L Total Protein (6.3-8.3) g/dL Albumin (3.5-5.0) g/dL Globulin (2.2-3.9) gm/dL Albumin/Globulin Ratio (1.0-2.1) 01/19/17 Range/Units 20:07 WBC (4.8-10.8) K/uL RBC (3.80-5.20) Mil/uL Hgb (11.0-16.0) g/dL Hct (34.0-47.0) % MCV (81.0-99.0) fL MCH (27.0-31.0) pg MCHC (33.0-37.0) g/dL RDW (11.5-14.5) % Plt Count (130-400) K/uL MPV (7.2-11.7) fL Neut % (Auto) (50.0-75.0) % Lymph % (Auto) (20.0-40.0) % [place] % (Auto) (0.0-10.0) % Eos % (Auto) (0.0-4.0) % Baso % (Auto) (0.0-2.0) % Neut # (1.8-7.0) K/uL Lymph # (1.0-4.3) K/uL [place] # (0.0-0.8) K/uL Eos # (0.0-0.7) K/uL Baso # (0.0-0.2) K/uL Puncture Site pCO2 (35-45) mm/Hg pO2 (80-100) mm/Hg HCO3 (21-28) mmol/L ABG pH (7.35-7.45) ABG Total CO2 (22-28) mmol/L ABG O2 Saturation (95-98) % ABG Base Excess (-2.0-3.0) mmol/L ABG Hemoglobin (11.7-17.4) g/dL ABG Carboxyhemoglobin (0.5-1.5) % POC ABG HHb (Measured) (0.0-5.0) % ABG Methemoglobin (0.0-3.0) % Singh Test A-a O2 Difference mm/Hg Respiratory Index Hgb O2 Saturation (95.0-98.0) % Vent Mode Mechanical Rate FiO2 % Tidal Volume PEEP Sodium (132-148) mmol/L Potassium (3.6-5.2) mmol/L Chloride (98-107) mmol/L Carbon Dioxide (22-30) mmol/L Anion Gap (10-20) BUN (7-17) mg/dL Creatinine (0.7-1.2) mg/dL Est GFR ( Amer) Est GFR (Non-Af Amer) POC Glucose (mg/dL) 189 H (65-110) mg/dL Random Glucose (65-105) mg/dL Calcium (8.6-10.4) mg/dl Phosphorus (2.5-4.5) mg/dL Magnesium (1.6-2.3) mg/dL Total Bilirubin (0.2-1.3) mg/dL AST (14-36) U/L ALT (9-52) U/L Alkaline Phosphatase (38-126) U/L Total Protein (6.3-8.3) g/dL Albumin (3.5-5.0) g/dL Globulin (2.2-3.9) gm/dL Albumin/Globulin Ratio (1.0-2.1) Laboratory Results - last 24 hr 01/19/17 01/19/17 01/20/17 20:07 23:44 05:03 WBC RBC Hgb Hct MCV MCH MCHC RDW Plt Count MPV Neut % (Auto) Lymph % (Auto) [place] % (Auto) Eos % (Auto) Baso % (Auto) Neut # Lymph # [place] # Eos # Baso # Puncture Site pCO2 pO2 HCO3 ABG pH ABG Total CO2 ABG O2 Saturation ABG Base Excess ABG Hemoglobin ABG Carboxyhemoglobin POC ABG HHb (Measured) ABG Methemoglobin Singh Test A-a O2 Difference Respiratory Index Hgb O2 Saturation Vent Mode Mechanical Rate FiO2 Tidal Volume PEEP Sodium Potassium Chloride Carbon Dioxide Anion Gap BUN Creatinine Est GFR ( Amer) Est GFR (Non-Af Amer) POC Glucose (mg/dL) 189 H 166 H 292 H Random Glucose Calcium Phosphorus Magnesium Total Bilirubin AST ALT Alkaline Phosphatase Total Protein Albumin Globulin Albumin/Globulin Ratio 01/20/17 01/20/17 01/20/17 05:21 06:16 06:16 WBC 5.6 RBC 3.66 L Hgb 9.5 L Hct 29.5 L MCV 80.5 L MCH 25.9 L MCHC 32.2 L RDW 14.8 H Plt Count 192 MPV 8.3 Neut % (Auto) 57.2 Lymph % (Auto) 30.9 [place] % (Auto) 8.6 Eos % (Auto) 1.9 Baso % (Auto) 1.4 Neut # 3.2 Lymph # 1.7 [place] # 0.5 Eos # 0.1 Baso # 0.1 Puncture Site R b pCO2 28 L pO2 147 H HCO3 22.5 ABG pH 7.46 H ABG Total CO2 20.8 L ABG O2 Saturation 99.5 H ABG Base Excess -3.1 L ABG Hemoglobin 9.9 L ABG Carboxyhemoglobin 1.8 H POC ABG HHb (Measured) 0.5 ABG Methemoglobin 1.0 Singh Test Na A-a O2 Difference 103.0 Respiratory Index 0.7 Hgb O2 Saturation 96.7 Vent Mode Prvc Mechanical Rate 16 FiO2 40.0 Tidal Volume 450 PEEP 5 Sodium 135 Potassium 4.8 Chloride 105 Carbon Dioxide 23 Anion Gap 12 BUN 27 H Creatinine 0.5 L Est GFR ( Amer) > 60 Est GFR (Non-Af Amer) > 60 POC Glucose (mg/dL) Random Glucose 302 H Calcium 7.7 L Phosphorus 3.2 Magnesium 1.7 Total Bilirubin 0.6 AST 24 ALT 41 Alkaline Phosphatase 136 H D Total Protein 6.1 L Albumin 3.1 L Globulin 3.0 Albumin/Globulin Ratio 1.0 01/20/17 18:31 WBC RBC Hgb Hct MCV MCH MCHC RDW Plt Count MPV Neut % (Auto) Lymph % (Auto) [place] % (Auto) Eos % (Auto) Baso % (Auto) Neut # Lymph # [place] # Eos # Baso # Puncture Site pCO2 pO2 HCO3 ABG pH ABG Total CO2 ABG O2 Saturation ABG Base Excess ABG Hemoglobin ABG Carboxyhemoglobin POC ABG HHb (Measured) ABG Methemoglobin Singh Test A-a O2 Difference Respiratory Index Hgb O2 Saturation Vent Mode Mechanical Rate FiO2 Tidal Volume PEEP Sodium Potassium Chloride Carbon Dioxide Anion Gap BUN Creatinine Est GFR ( Amer) Est GFR (Non-Af Amer) POC Glucose (mg/dL) 382 H Random Glucose Calcium Phosphorus Magnesium Total Bilirubin AST ALT Alkaline Phosphatase Total Protein Albumin Globulin Albumin/Globulin Ratio Fingerstick Blood Sugar Results: 382 Review of Systems - Review of Systems Systems not reviewed;Unavailable: Intubated Assessment/Plan - Assessment and Plan (Free Text) Assessment: Patient is an 81 year old female presenting to the hospital with vague chest pain that needed to be intubated due to respiratory failure from hypercapnia. Patient was transferred to the ICU for further evaluation. Plan: Pulmonary: Intubated (01/18) COPD CXR 01/20/17 - No significant interval change. ABG - pCO2 28, pO2 147, HCO3 22.5, pH 7.46 on vent settings 450/50/16/5 - continue CPAP trails WBC 5.6 Procalcitonin 01/18 - 0.06 Atrovent 0.5mg IH q6h PRN Azithromycin 500mg IVPB daily Aztreonam 2gm IVPB q8h Clindamycin 600mg IVPB q8h Blood Culture negative at [id number] CV: Cardio - Dr. Crowell consulted, help appreciated hx of Afib (currently sinus on monitor) HTN Trop 0.027/0.025/0.023 Pro-BNP 2310 Diltiazem 30mg PO qid Crestor 20mg PO HS Aspirin 81mg PO daily Metoprolol Tartrate 75mg PO q8h Enalapril Maleate 2.5 mg PO daily Losartan 100mg PO daily HCTZ 12.5mg PO daily - discontinued Spironolactone 12.5mg PO BID Neuro: hx of seizures hx of CVA Propofol drip Keppra 750mg PO BID Endo: DM2 Hypothyroidism Lantus 10 units SC BIDAC - on hold ISS - q6h Synthroid 25mcg PO daily Prophylactic Care: Lovenox 40mg SC daily Protonix 40mg IVP daily Folic Acid 1mg PO daily Florastor 250mg PO BID Tube feeding Case discussed with Dr. Kin Amos PGY1 <Geovany Sanderson - Last Filed: 01/20/17 20:13> CCU Objective - Vital Signs / Intake & Output Vital Signs (Last 4 hours): Vital Signs Pulse Resp BP Pulse Ox 01/20/17 18:00 88 16 100 01/20/17 17:06 80 16 124/73 100 01/20/17 17:00 90 16 100 Intake and Output (Last 8hrs): Intake & Output 01/20/17 01/20/17 01/20/17 06:59 14:59 22:59 Intake Total 465.6 580.5 275 Output Total 300 130 195 Balance 165.6 450.5 80 Intake: IV 64 Intake, IV Amount 171.6 405.5 100 Left Medial Port Internal 21.6 5.5 Jugular Left Proximal Port 150 400 100 Internal Jugular Tube Feeding 230 175 175 Output: Urine 300 130 195 Urine, Voided 300 130 195 Stool 0 - Medications Active Medications: Active Medications Generic Name Dose Route Start Last Admin Trade Name Freq PRN Reason Stop Dose Admin Acetaminophen 650 mg 12/11/17 21:49 01/18/17 15:23 Tylenol 325mg Tab PO 650 mg Q6 PRN Administration Pain, moderate (4-7) Aspirin 81 mg 01/18/17 10:00 01/20/17 09:52 Ecotrin PO 81 mg DAILY SCOTTY Administration Calcium Carbonate 500 mg 01/18/17 10:00 01/20/17 17:26 Oscal PO 500 mg BID SCOTTY Administration Diltiazem HCl 30 mg 01/17/17 22:00 01/20/17 17:26 Cardizem PO 30 mg QID SCOTTY Administration Enalapril Maleate 2.5 mg 01/21/17 10:00 Vasotec PO DAILY [facility] Enoxaparin Sodium 40 mg 01/18/17 10:00 01/20/17 09:52 Lovenox SC 40 mg DAILY SCOTTY Administration Folic Acid 1 mg 01/18/17 10:00 01/20/17 09:54 Folic Acid PO 1 mg DAILY SCOTTY Administration Azithromycin 500 mg/ Sodium 250 mls @ 250 mls/hr 01/18/17 10:00 01/20/17 09: 59 Chloride IVPB 250 mls/hr DAILY [facility] Administration Propofol 1,000 mg in 100 mls @ 1.238 mls/hr 01/18/17 16:29 01/20/17 05:26 Diprivan IV 10.9 mcg/kg/min .Q24H PRN 2.7 mls/hr TITRATE PER MD ORDER Administration Protocol 5 MCG/KG/MIN Aztreonam 2 gm/ Sodium 100 mls @ 200 mls/hr 01/18/17 19:00 01/20/17 18:19 Chloride IVPB 200 mls/hr Q8H SCOTTY Administration Clindamycin Phosphate 600 mg/ 54 mls @ 100 mls/hr 01/18/17 22:00 01/20/17 13: 52 Sodium Chloride IVPB 100 mls/hr Q8 SCOTTY Administration Insulin Glargine 10 unit 01/18/17 07:30 01/19/17 07:50 Lantus SC Not Given BIDAC [facility] Insulin Human Regular 0 unit 01/18/17 21:15 01/20/17 18:38 Novolin R SC 5 unit Q6 SCOTTY Administration Protocol Ipratropium [place] 0.5 mg 01/18/17 15:39 Atrovent IH RQ6 PRN Shortness of Breath Levetiracetam 750 mg 01/18/17 10:00 01/20/17 17:26 Keppra PO 750 mg BID SCOT[facility] Administration Levothyroxine Sodium 25 mcg 01/18/17 06:30 01/20/17 05:30 Synthroid PO 25 mcg DAILY@0630 SCOTTY Administration Losartan Potassium 100 mg 01/18/17 10:00 01/20/17 09:52 Cozaar PO 100 mg DAILY SCOT[facility] Administration Magnesium Hydroxide 30 ml 01/17/17 21:49 Milk Of Magnesia PO DAILY PRN Constipation Metoprolol Tartrate 75 mg 01/17/17 22:00 01/20/17 14:21 Lopressor PO 75 mg Q8 [facility]OT[facility] Administration Pantoprazole Sodium 40 mg 01/19/17 10:00 01/20/17 09:52 Protonix Inj IVP 40 mg DAILY [facility]OT[facility] Administration Rosuvastatin Calcium 20 mg 01/18/17 22:00 01/19/17 21:43 Crestor PO 20 mg HS SCOTTY Administration Saccharomyces Boulardii 250 mg 01/18/17 18:00 01/20/17 17:26 Florastor PO 250 mg BID SCOTTY Administration Spironolactone 12.5 mg 01/20/17 18:00 01/20/17 17:26 Aldactone PO 12.5 mg BID SCOTTY Administration - Patient Studies Lab Studies: Microbiology Studies 01/18/17 17:48 Urine Culture - Preliminary Urine,Catheterized Gram Negative Jose Eduardo Yeast Species 01/17/17 20:30 Blood Culture - Preliminary Blood-Venous NO GROWTH AFTER 48 HOURS 01/17/17 20:00 Blood Culture - Preliminary Blood-Venous NO GROWTH AFTER 48 HOURS 01/18/17 18:44 MRSA Culture (Admit) - Final Nose MRSA NOT DETECTED Lab Studies 01/20/17 01/20/17 01/20/17 Range/Units 18:31 06:16 06:16 WBC 5.6 (4.8-10.8) K/uL RBC 3.66 L (3.80-5.20) Mil/uL Hgb 9.5 L (11.0-16.0) g/dL Hct 29.5 L (34.0-47.0) % MCV 80.5 L (81.0-99.0) fL MCH 25.9 L (27.0-31.0) pg MCHC 32.2 L (33.0-37.0) g/dL RDW 14.8 H (11.5-14.5) % Plt Count 192 (130-400) K/uL MPV 8.3 (7.2-11.7) fL Neut % (Auto) 57.2 (50.0-75.0) % Lymph % (Auto) 30.9 (20.0-40.0) % [place] % (Auto) 8.6 (0.0-10.0) % Eos % (Auto) 1.9 (0.0-4.0) % Baso % (Auto) 1.4 (0.0-2.0) % Neut # 3.2 (1.8-7.0) K/uL Lymph # 1.7 (1.0-4.3) K/uL [place] # 0.5 (0.0-0.8) K/uL Eos # 0.1 (0.0-0.7) K/uL Baso # 0.1 (0.0-0.2) K/uL Puncture Site pCO2 (35-45) mm/Hg pO2 (80-100) mm/Hg HCO3 (21-28) mmol/L ABG pH (7.35-7.45) ABG Total CO2 (22-28) mmol/L ABG O2 Saturation (95-98) % ABG Base Excess (-2.0-3.0) mmol/L ABG Hemoglobin (11.7-17.4) g/dL ABG Carboxyhemoglobin (0.5-1.5) % POC ABG HHb (Measured) (0.0-5.0) % ABG Methemoglobin (0.0-3.0) % Singh Test A-a O2 Difference mm/Hg Respiratory Index Hgb O2 Saturation (95.0-98.0) % Vent Mode Mechanical Rate FiO2 % Tidal Volume PEEP Sodium 135 (132-148) mmol/L Potassium 4.8 (3.6-5.2) mmol/L Chloride 105 (98-107) mmol/L Carbon Dioxide 23 (22-30) mmol/L Anion Gap 12 (10-20) BUN 27 H (7-17) mg/dL Creatinine 0.5 L (0.7-1.2) mg/dL Est GFR ( Amer) > 60 Est GFR (Non-Af Amer) > 60 POC Glucose (mg/dL) 382 H (65-110) mg/dL Random Glucose 302 H (65-105) mg/dL Calcium 7.7 L (8.6-10.4) mg/dl Phosphorus 3.2 (2.5-4.5) mg/dL Magnesium 1.7 (1.6-2.3) mg/dL Total Bilirubin 0.6 (0.2-1.3) mg/dL AST 24 (14-36) U/L ALT 41 (9-52) U/L Alkaline Phosphatase 136 H D (38-126) U/L Total Protein 6.1 L (6.3-8.3) g/dL Albumin 3.1 L (3.5-5.0) g/dL Globulin 3.0 (2.2-3.9) gm/dL Albumin/Globulin Ratio 1.0 (1.0-2.1) 01/20/17 01/20/17 01/19/17 Range/Units 05:21 05:03 23:44 WBC (4.8-10.8) K/uL RBC (3.80-5.20) Mil/uL Hgb (11.0-16.0) g/dL Hct (34.0-47.0) % MCV (81.0-99.0) fL MCH (27.0-31.0) pg MCHC (33.0-37.0) g/dL RDW (11.5-14.5) % Plt Count (130-400) K/uL MPV (7.2-11.7) fL Neut % (Auto) (50.0-75.0) % Lymph % (Auto) (20.0-40.0) % [place] % (Auto) (0.0-10.0) % Eos % (Auto) (0.0-4.0) % Baso % (Auto) (0.0-2.0) % Neut # (1.8-7.0) K/uL Lymph # (1.0-4.3) K/uL [place] # (0.0-0.8) K/uL Eos # (0.0-0.7) K/uL Baso # (0.0-0.2) K/uL Puncture Site R b pCO2 28 L (35-45) mm/Hg pO2 147 H (80-100) mm/Hg HCO3 22.5 (21-28) mmol/L ABG pH 7.46 H (7.35-7.45) ABG Total CO2 20.8 L (22-28) mmol/L ABG O2 Saturation 99.5 H (95-98) % ABG Base Excess -3.1 L (-2.0-3.0) mmol/L ABG Hemoglobin 9.9 L (11.7-17.4) g/dL ABG Carboxyhemoglobin 1.8 H (0.5-1.5) % POC ABG HHb (Measured) 0.5 (0.0-5.0) % ABG Methemoglobin 1.0 (0.0-3.0) % Singh Test Na A-a O2 Difference 103.0 mm/Hg Respiratory Index 0.7 Hgb O2 Saturation 96.7 (95.0-98.0) % Vent Mode Prvc Mechanical Rate 16 FiO2 40.0 % Tidal Volume 450 PEEP 5 Sodium (132-148) mmol/L Potassium (3.6-5.2) mmol/L Chloride (98-107) mmol/L Carbon Dioxide (22-30) mmol/L Anion Gap (10-20) BUN (7-17) mg/dL Creatinine (0.7-1.2) mg/dL Est GFR ( Amer) Est GFR (Non-Af Amer) POC Glucose (mg/dL) 292 H 166 H (65-110) mg/dL Random Glucose (65-105) mg/dL Calcium (8.6-10.4) mg/dl Phosphorus (2.5-4.5) mg/dL Magnesium (1.6-2.3) mg/dL Total Bilirubin (0.2-1.3) mg/dL AST (14-36) U/L ALT (9-52) U/L Alkaline Phosphatase (38-126) U/L Total Protein (6.3-8.3) g/dL Albumin (3.5-5.0) g/dL Globulin (2.2-3.9) gm/dL Albumin/Globulin Ratio (1.0-2.1) 12 Range/Units 20:07 WBC (4.8-10.8) K/uL RBC (3.80-5.20) Mil/uL Hgb (11.0-16.0) g/dL Hct (34.0-47.0) % MCV (81.0-99.0) fL MCH (27.0-31.0) pg MCHC (33.0-37.0) g/dL RDW (11.5-14.5) % Plt Count (130-400) K/uL MPV (7.2-11.7) fL Neut % (Auto) (50.0-75.0) % Lymph % (Auto) (20.0-40.0) % [place] % (Auto) (0.0-10.0) % Eos % (Auto) (0.0-4.0) % Baso % (Auto) (0.0-2.0) % Neut # (1.8-7.0) K/uL Lymph # (1.0-4.3) K/uL [place] # (0.0-0.8) K/uL Eos # (0.0-0.7) K/uL Baso # (0.0-0.2) K/uL Puncture Site pCO2 (35-45) mm/Hg pO2 (80-100) mm/Hg HCO3 (21-28) mmol/L ABG pH (7.35-7.45) ABG Total CO2 (22-28) mmol/L ABG O2 Saturation (95-98) % ABG Base Excess (-2.0-3.0) mmol/L ABG Hemoglobin (11.7-17.4) g/dL ABG Carboxyhemoglobin (0.5-1.5) % POC ABG HHb (Measured) (0.0-5.0) % ABG Methemoglobin (0.0-3.0) % Singh Test A-a O2 Difference mm/Hg Respiratory Index Hgb O2 Saturation (95.0-98.0) % Vent Mode Mechanical Rate FiO2 % Tidal Volume PEEP Sodium (132-148) mmol/L Potassium (3.6-5.2) mmol/L Chloride (98-107) mmol/L Carbon Dioxide (22-30) mmol/L Anion Gap (10-20) BUN (7-17) mg/dL Creatinine (0.7-1.2) mg/dL Est GFR ( Amer) Est GFR (Non-Af Amer) POC Glucose (mg/dL) 189 H (65-110) mg/dL Random Glucose (65-105) mg/dL Calcium (8.6-10.4) mg/dl Phosphorus (2.5-4.5) mg/dL Magnesium (1.6-2.3) mg/dL Total Bilirubin (0.2-1.3) mg/dL AST (14-36) U/L ALT (9-52) U/L Alkaline Phosphatase (38-126) U/L Total Protein (6.3-8.3) g/dL Albumin (3.5-5.0) g/dL Globulin (2.2-3.9) gm/dL Albumin/Globulin Ratio (1.0-2.1) Laboratory Results - last 24 hr 01/19/17 01/19/17 01/20/17 20:07 23:44 05:03 WBC RBC Hgb Hct MCV MCH MCHC RDW Plt Count MPV Neut % (Auto) Lymph % (Auto) [place] % (Auto) Eos % (Auto) Baso % (Auto) Neut # Lymph # [place] # Eos # Baso # Puncture Site pCO2 pO2 HCO3 ABG pH ABG Total CO2 ABG O2 Saturation ABG Base Excess ABG Hemoglobin ABG Carboxyhemoglobin POC ABG HHb (Measured) ABG Methemoglobin Singh Test A-a O2 Difference Respiratory Index Hgb O2 Saturation Vent Mode Mechanical Rate FiO2 Tidal Volume PEEP Sodium Potassium Chloride Carbon Dioxide Anion Gap BUN Creatinine Est GFR ( Amer) Est GFR (Non-Af Amer) POC Glucose (mg/dL) 189 H 166 H 292 H Random Glucose Calcium Phosphorus Magnesium Total Bilirubin AST ALT Alkaline Phosphatase Total Protein Albumin Globulin Albumin/Globulin Ratio 01/20/17 01/20/17 01/20/17 05:21 06:16 06:16 WBC 5.6 RBC 3.66 L Hgb 9.5 L Hct 29.5 L MCV 80.5 L MCH 25.9 L MCHC 32.2 L RDW 14.8 H Plt Count 192 MPV 8.3 Neut % (Auto) 57.2 Lymph % (Auto) 30.9 [place] % (Auto) 8.6 Eos % (Auto) 1.9 Baso % (Auto) 1.4 Neut # 3.2 Lymph # 1.7 [place] # 0.5 Eos # 0.1 Baso # 0.1 Puncture Site R b pCO2 28 L pO2 147 H HCO3 22.5 ABG pH 7.46 H ABG Total CO2 20.8 L ABG O2 Saturation 99.5 H ABG Base Excess -3.1 L ABG Hemoglobin 9.9 L ABG Carboxyhemoglobin 1.8 H POC ABG HHb (Measured) 0.5 ABG Methemoglobin 1.0 Singh Test Na A-a O2 Difference 103.0 Respiratory Index 0.7 Hgb O2 Saturation 96.7 Vent Mode Prvc Mechanical Rate 16 FiO2 40.0 Tidal Volume 450 PEEP 5 Sodium 135 Potassium 4.8 Chloride 105 Carbon Dioxide 23 Anion Gap 12 BUN 27 H Creatinine 0.5 L Est GFR ( Amer) > 60 Est GFR (Non-Af Amer) > 60 POC Glucose (mg/dL) Random Glucose 302 H Calcium 7.7 L Phosphorus 3.2 Magnesium 1.7 Total Bilirubin 0.6 AST 24 ALT 41 Alkaline Phosphatase 136 H D Total Protein 6.1 L Albumin 3.1 L Globulin 3.0 Albumin/Globulin Ratio 1.0 01/20/17 18:31 WBC RBC Hgb Hct MCV MCH MCHC RDW Plt Count MPV Neut % (Auto) Lymph % (Auto) [place] % (Auto) Eos % (Auto) Baso % (Auto) Neut # Lymph # [place] # Eos # Baso # Puncture Site pCO2 pO2 HCO3 ABG pH ABG Total CO2 ABG O2 Saturation ABG Base Excess ABG Hemoglobin ABG Carboxyhemoglobin POC ABG HHb (Measured) ABG Methemoglobin Singh Test A-a O2 Difference Respiratory Index Hgb O2 Saturation Vent Mode Mechanical Rate FiO2 Tidal Volume PEEP Sodium Potassium Chloride Carbon Dioxide Anion Gap BUN Creatinine Est GFR ( Amer) Est GFR (Non-Af Amer) POC Glucose (mg/dL) 382 H Random Glucose Calcium Phosphorus Magnesium Total Bilirubin AST ALT Alkaline Phosphatase Total Protein Albumin Globulin Albumin/Globulin Ratio Attending/Attestation - Attestation I have personally seen and examined this patient.: Yes I have fully participated in the care of the patient.: Yes I have reviewed all pertinent clinical information: Yes Notes (Text): Today: January The Patient was seen and examined at the bedside, Medical records reviewed, and management issues were discussed and formulated with the house staff. I have reviewed all the relevant clinical, laboratory, hemodynamic, radiographic data and medications Events reviewed Pain issues, skin care, head of the bed elevation, glycemic control were addressed. Agree with above resident's assessment and treatment plans of care as transcribed in Dr. Amos note. Critically ill patient with acute hypoxemic respiratory failure, Respiratory acidosis from acuter pulmonary edema, Acute systolic CHF and bilaterel lower lobes pneumoniaAll sedation was discontinued and Pt placed on CPAP trail she tolerated for few hours then became tacypnic with low tidal volume Daily SAT/SBT Continue with IV antibiotics Diuresis PRN Monitor urine output Restore outpatient meds BD nebs q 6h prn Discussed with the family in details diagnosis, treatment plans and alternatives , Code status: Full code Total critical care time 32 minutes
--- NOTE | 2017-01-20 22:42 | CP.PCM.PN ---
Subjective - Date & Time of Evaluation Date of Evaluation: 01/20/17 Time of Evaluation: 20:45 - Subjective Subjective: Pt seen and examined at bedside, is on mechanical ventilator, afebrile, less short of breath, she is being diuresed, seen by cardiology ECho shows LV EF of 30% Objective - Vital Signs/Intake and Output Vital Signs (last 24 hours): Temp Pulse Resp BP Pulse Ox 97.8 F 71 13 127/61 100 01/20/17 20:00 01/20/17 22:06 01/20/17 22:06 01/20/17 22:06 01/20/17 22:06 Intake and Output: 01/20/17 01/21/17 18:59 06:59 Intake Total 855.5 175 Output Total 325 Balance 530.5 175 - Medications Medications: Current Medications Acetaminophen (Tylenol 325mg Tab) 650 mg PO Q6 PRN PRN Reason: Pain, moderate (4-7) Last Admin: 01/18/17 15:23 Dose: 650 mg Aspirin (Ecotrin) 81 mg PO DAILY [facility] Last Admin: 01/20/17 09:52 Dose: 81 mg Calcium Carbonate (Oscal) 500 mg PO BID [facility] Last Admin: 01/20/17 17:26 Dose: 500 mg Diltiazem HCl (Cardizem) 30 mg PO QID [facility] Last Admin: 01/20/17 21:35 Dose: 30 mg Enalapril Maleate (Vasotec) 2.5 mg PO DAILY [facility] Enoxaparin Sodium (Lovenox) 40 mg SC DAILY [facility] Last Admin: 01/20/17 09:52 Dose: 40 mg Folic Acid (Folic Acid) 1 mg PO DAILY [facility] Last Admin: 01/20/17 09:54 Dose: 1 mg Azithromycin 500 mg/ Sodium (Chloride) 250 mls @ 250 mls/hr IVPB DAILY [facility] Last Admin: 01/20/17 09:59 Dose: 250 mls/hr Propofol (Diprivan) 1,000 mg in 100 mls @ 1.238 mls/hr IV .Q24H PRN; Protocol; 5 MCG/KG/MIN PRN Reason: TITRATE PER MD ORDER Last Titration: 01/20/17 21:00 Dose: 10.9 mcg/kg/min, 2.7 mls/hr Aztreonam 2 gm/ Sodium (Chloride) 100 mls @ 200 mls/hr IVPB Q8H [facility] Last Admin: 01/20/17 18:19 Dose: 200 mls/hr Clindamycin Phosphate 600 mg/ (Sodium Chloride) 54 mls @ 100 mls/hr IVPB Q8 [facility] Last Admin: 01/20/17 21:35 Dose: 100 mls/hr Insulin Glargine (Lantus) 10 unit SC BIDAC [facility] Last Admin: 01/19/17 07:50 Dose: Not Given Insulin Human Regular (Novolin R) 0 unit SC Q6 SCOTTY PRN Reason: Protocol Last Admin: 01/20/17 18:38 Dose: 5 unit Ipratropium [place] (Atrovent) 0.5 mg IH RQ6 PRN PRN Reason: Shortness of Breath Levetiracetam (Keppra) 750 mg PO BID [facility] Last Admin: 01/20/17 17:26 Dose: 750 mg Levothyroxine Sodium (Synthroid) 25 mcg PO DAILY@0630 [facility] Last Admin: 01/20/17 05:30 Dose: 25 mcg Losartan Potassium (Cozaar) 100 mg PO DAILY [facility] Last Admin: 01/20/17 09:52 Dose: 100 mg Magnesium Hydroxide (Milk Of Magnesia) 30 ml PO DAILY PRN PRN Reason: Constipation Metoprolol Tartrate (Lopressor) 75 mg PO Q8 [facility] Last Admin: 01/20/17 21:36 Dose: 75 mg Pantoprazole Sodium (Protonix Inj) 40 mg IVP DAILY [facility] Last Admin: 01/20/17 09:52 Dose: 40 mg Rosuvastatin Calcium (Crestor) 20 mg PO HS [facility] Last Admin: 01/20/17 21:36 Dose: 20 mg Saccharomyces Boulardii (Florastor) 250 mg PO BID [facility] Last Admin: 01/20/17 17:26 Dose: 250 mg Spironolactone (Aldactone) 12.5 mg PO BID [facility] Last Admin: 01/20/17 17:26 Dose: 12.5 mg - Labs Labs: 01/20/17 06:16 01/20/17 06:16 - Constitutional Appears: No Acute Distress, Chronically Ill - Head Exam Head Exam: ATRAUMATIC, NORMAL INSPECTION, NORMOCEPHALIC - Eye Exam Eye Exam: EOMI, Normal appearance, PERRL Pupil Exam: NORMAL ACCOMODATION, PERRL - Respiratory Exam Respiratory Exam: Decreased Breath Sounds, Rales - Cardiovascular Exam Cardiovascular Exam: REGULAR RHYTHM, +S1, +S2. absent: Murmur Additional comments: S3 positive Assessment and Plan (1) Respiratory failure Assessment & Plan: attempt weaning Status: Acute (2) Seizure disorder Status: Acute (3) Uncontrolled blood glucose Assessment & Plan: tight blood sugar control ACCU check Status: Acute (4) Systolic CHF Assessment & Plan: Diuresis Status: Acute
[2017-01-21] MEDS: Aztreonam 2 GM in Sodium Chloride 0.9% 100 ML IVPB SCH ×3 (02:35→18:50)
[2017-01-21] MEDS: (Novolin R) Insulin Human Regular 100 units/ml vial SC SCH ×4 (02:36→18:45)
[2017-01-21 05:49] LABS: ARTERIAL BLOOD GAS HEMOGLOBIN 9.8 g/dL (11.7-17.4); ARTERIAL BLOOD GAS O2 SAT 99.5 % (95-98); ARTERIAL BLOOD GAS PCO2 29 mm/Hg (35-45); ARTERIAL BLOOD GAS PH 7.44 (7.35-7.45); ARTERIAL BLOOD GAS PO2 157 mm/Hg (80-100); ARTERIAL BLOOD GAS TCO2 20.6 mmol/L (22-28)
[2017-01-21] MEDS: Levothyroxine 25 MCG TAB PO SCH (06:02)
[2017-01-21 06:35] LABS: BASO # 0.1 K/uL (0.0-0.2); BASO % 2.6 % (0.0-2.0); EOS # 0.1 K/uL (0.0-0.7); HEMOGLOBIN 9.5 g/dL (11.0-16.0); LYMPH # 1.5 K/uL (1.0-4.3); LYMPH % 26.7 % (20.0-40.0); MEAN CELL VOLUME 80.8 fL (81.0-99.0); MEAN CORPUSCULAR HEMOGLOBIN 26.6 pg (27.0-31.0); MEAN CORPUSCULAR HGB CONC 32.9 g/dL (33.0-37.0); MEAN PLATELET VOLUME 8.6 fL (7.2-11.7); MONO # 0.5 K/uL (0.0-0.8); MONO % 8.7 % (0.0-10.0); NEUT # 3.3 K/uL (1.8-7.0); RBC 3.59 Mil/uL (3.80-5.20); RED CELL DISTRIBUTION WIDTH 15.4 % (11.5-14.5); WHITE BLOOD COUNT 5.5 K/uL (4.8-10.8)
[2017-01-21] MEDS ORDERED: (Lantus) Insulin Glargine, Recombinant SC SCH ×2 (06:48→16:30)
[2017-01-21 07:19] LABS: ALB/GLOB RATIO 0.7 (1.0-2.1); ALBUMIN 2.9 g/dL (3.5-5.0); ALT/SGPT 54 U/L (9-52); AST/SGOT 21 U/L (14-36); BLOOD UREA NITROGEN 35 mg/dL (7-17); CALCIUM 7.5 mg/dl (8.6-10.4); GFR AFRICAN-AMERICAN > 60; GFR NON-AFRICAN AMERICAN > 60; MAGNESIUM 1.9 mg/dL (1.6-2.3)
--- NOTE | 2017-01-21 08:30 | RAD ---
Chest x-ray single frontal view History: Intubated. Comparison: 01/20/2017 Findings: Lines and tubes stable position. Worsening now small left pleural effusion. Biapical pleural thickening with upper lobe granulomatous changes. Diffuse increased interstitial lung markings. Scattered nodularity throughout the right lung. Calcification at the aortic knob. Cardiomegaly. Tortuous ectatic aorta. Multiple bilateral rib deformities. Right humeral deformity. Multiple lobulated calcifications within the right breast. Impression: Worsening now small left pleural effusion. Otherwise no significant interval change.
[2017-01-21] MEDS: Enoxaparin 40 mg Syringe SC SCH (09:05)
[2017-01-21] MEDS: Saccharomyces Boulardi 250 mg Cap PO SCH ×2 (09:05→17:05)
[2017-01-21] MEDS: Magnesium Hydroxide Susp 30 ml UD PO PRN (09:10)
[2017-01-21] MEDS: Azithromycin 500 MG in Sodium Chloride 0.9% 250 ML IVPB SCH (09:24)
[2017-01-21] MEDS ORDERED: MethylPREDNISolone 40 mg Vial IVP ONE (10:15)
[2017-01-21] MEDS ORDERED: Dexmedetomidine Hydrochloride 400 MCG in Sodium Chloride 0.9% 96 ML IV PRN (10:30)
--- NOTE | 2017-01-21 13:16 | CP.PCM.PN ---
Subjective - Date & Time of Evaluation Date of Evaluation: 01/21/17 Time of Evaluation: 09:50 - Subjective Subjective: patient seen and examine in the intensive care unit Tolerated CPAP for a few hours yesterday Ventilatory support FiO2 50% Awake and responsive Afebrile Objective - Vital Signs/Intake and Output Vital Signs (last 24 hours): Temp Pulse Resp BP Pulse Ox 98 F 80 24 117/58 L 100 01/21/17 08:00 01/21/17 12:06 01/21/17 12:06 01/21/17 12:06 01/21/17 12:06 Intake and Output: 01/21/17 01/21/17 06:59 18:59 Intake Total 581.5 250.5 Output Total 550 100 Balance 31.5 150.5 - Medications Medications: Current Medications Acetaminophen (Tylenol 325mg Tab) 650 mg PO Q6 PRN PRN Reason: Pain, moderate (4-7) Last Admin: 01/18/17 15:23 Dose: 650 mg Aspirin (Ecotrin) 81 mg PO DAILY [facility] Last Admin: 01/21/17 09:05 Dose: 81 mg Calcium Carbonate (Oscal) 500 mg PO BID [facility] Last Admin: 01/21/17 09:05 Dose: 500 mg Diltiazem HCl (Cardizem) 30 mg PO QID [facility] Last Admin: 01/21/17 09:06 Dose: 30 mg Enalapril Maleate (Vasotec) 2.5 mg PO DAILY [facility] Last Admin: 01/21/17 09:06 Dose: 2.5 mg Enoxaparin Sodium (Lovenox) 40 mg SC DAILY [facility] Last Admin: 01/21/17 09:05 Dose: 40 mg Folic Acid (Folic Acid) 1 mg PO DAILY [facility] Last Admin: 01/21/17 09:04 Dose: 1 mg Azithromycin 500 mg/ Sodium (Chloride) 250 mls @ 250 mls/hr IVPB DAILY [facility] Last Admin: 01/21/17 09:24 Dose: 250 mls/hr Aztreonam 2 gm/ Sodium (Chloride) 100 mls @ 200 mls/hr IVPB Q8H [facility] Last Admin: 01/21/17 02:35 Dose: 200 mls/hr Clindamycin Phosphate 600 mg/ (Sodium Chloride) 54 mls @ 100 mls/hr IVPB Q8 [facility] Last Admin: 01/21/17 05:13 Dose: 100 mls/hr Dexmedetomidine HCl 400 mcg/ (Sodium Chloride) 100 mls @ 2.26 mls/hr IV TITR PRN; Protocol; 0.2 MCG/KG/HR PRN Reason: sedation Insulin Glargine (Lantus) 16 unit SC BIDAC [facility] Insulin Human Regular (Novolin R) 0 unit SC Q6 SCOTTY PRN Reason: Protocol Last Admin: 01/21/17 06:02 Dose: 5 unit Ipratropium [place] (Atrovent) 0.5 mg IH RQ6 PRN PRN Reason: Shortness of Breath Levetiracetam (Keppra) 750 mg PO BID [facility] Last Admin: 01/21/17 09:05 Dose: 750 mg Levothyroxine Sodium (Synthroid) 25 mcg PO DAILY@0630 [facility] Last Admin: 01/21/17 06:02 Dose: 25 mcg Magnesium Hydroxide (Milk Of Magnesia) 30 ml PO DAILY PRN PRN Reason: Constipation Pantoprazole Sodium (Protonix Inj) 40 mg IVP DAILY [facility] Last Admin: 01/21/17 09:05 Dose: 40 mg Rosuvastatin Calcium (Crestor) 20 mg PO HS [facility] Last Admin: 01/20/17 21:36 Dose: 20 mg Saccharomyces Boulardii (Florastor) 250 mg PO BID [facility] Last Admin: 01/21/17 09:05 Dose: 250 mg Spironolactone (Aldactone) 12.5 mg PO BID [facility] Last Admin: 01/21/17 09:21 Dose: 12.5 mg - Labs Labs: 01/21/17 06:18 01/21/17 06:18 - Head Exam Head Exam: ATRAUMATIC, NORMOCEPHALIC - ENT Exam ENT Exam: Mucous Membranes Moist - Neck Exam Neck Exam: Normal Inspection - Respiratory Exam Respiratory Exam: Decreased Breath Sounds - Cardiovascular Exam Cardiovascular Exam: REGULAR RHYTHM - GI/Abdominal Exam GI & Abdominal Exam: Soft, Normal Bowel Sounds - Neurological Exam Neurological Exam: Awake Assessment and Plan (1) Respiratory failure Assessment & Plan: Continue weanng Continue antibiotics and followup ABG and chest x-ray feeding Status: Acute (2) Pneumonia Status: Acute
--- NOTE | 2017-01-21 13:26 | CP.CCUPN ---
<Leo Amos - Last Filed: 01/21/17 13:24> CCU Subjective - Physician Review Subjective (Free Text): PGY1 ICU Progress Note for Dr. Oh Banks Patient was seen and examined at bedside this morning. No acute events overnight. Patient is intubated. ROS unattainable. CCU Objective - Vital Signs / Intake & Output Vital Signs (Last 4 hours): Vital Signs Pulse Resp BP Pulse Ox 01/21/17 12:06 80 24 117/58 L 100 01/21/17 12:00 80 28 H 100 01/21/17 11:06 91 H 32 H 138/73 100 01/21/17 11:00 102 H 36 H 100 01/21/17 10:33 100/66 01/21/17 10:05 96 H 16 100/66 01/21/17 10:00 90 14 100 Intake and Output (Last 8hrs): Intake & Output 01/20/17 01/21/17 01/21/17 22:59 06:59 14:59 Intake Total 502.7 353.8 250.5 Output Total 345 400 100 Balance 157.7 -46.2 150.5 Weight 100 lb Intake: IV 20 10 12 Intake, IV Amount 152.7 13.8 3.5 Left Medial Port Internal 2.7 13.8 3.5 Jugular Left Proximal Port 150 Internal Jugular Tube Feeding 280 280 105 Other 50 50 130 Output: Urine 345 400 100 Urine, Voided 345 400 100 - Physical Exam Head: Positive for: Atraumatic, Normocephalic Pupils: Positive for: PERRL Extroacular Muscles: Positive for: EOMI Mouth: Positive for: Other (intubated) Respiratory/Chest: Positive for: Clear to Auscultation, Decreased Breath Sounds , Other (intubated). Negative for: Respiratory Distress Cardiovascular: Positive for: Regular Rate and Rhythm Abdomen: Negative for: Tenderness, Distention, Peritoneal Signs Upper Extremity: Positive for: Normal Inspection. Negative for: Edema Lower Extremity: Positive for: Normal Inspection. Negative for: Edema Neurological: Positive for: Other (intubated) Skin: Positive for: Warm, Dry Psychiatric: Positive for: Alert, Other (intubated) - Medications Active Medications: Active Medications Generic Name Dose Route Start Last Admin Trade Name Freq PRN Reason Stop Dose Admin Acetaminophen 650 mg 01/17/17 21:49 01/18/17 15:23 Tylenol 325mg Tab PO 650 mg Q6 PRN Administration Pain, moderate (4-7) Aspirin 81 mg 01/18/17 10:00 01/21/17 09:05 Ecotrin PO 81 mg DAILY SCOTTY Administration Calcium Carbonate 500 mg 01/18/17 10:00 01/21/17 09:05 Oscal PO 500 mg BID SCOTTY Administration Diltiazem HCl 30 mg 01/17/17 22:00 01/21/17 09:06 Cardizem PO 30 mg QID SCOTTY Administration Enalapril Maleate 2.5 mg 01/21/17 10:00 01/21/17 09:06 Vasotec PO 2.5 mg DAILY SCOTTY Administration Enoxaparin Sodium 40 mg 01/18/17 10:00 01/21/17 09:05 Lovenox SC 40 mg DAILY SCOTTY Administration Folic Acid 1 mg 01/18/17 10:00 01/21/17 09:04 Folic Acid PO 1 mg DAILY SCOTTY Administration Azithromycin 500 mg/ Sodium 250 mls @ 250 mls/hr 01/18/17 10:00 01/21/17 09: 24 Chloride IVPB 250 mls/hr DAILY SCOTTY Administration Aztreonam 2 gm/ Sodium 100 mls @ 200 mls/hr 01/18/17 19:00 01/21/17 12:00 Chloride IVPB 200 mls/hr Q8H SCOTTY Administration Clindamycin Phosphate 600 mg/ 54 mls @ 100 mls/hr 01/18/17 22:00 01/21/17 05: 13 Sodium Chloride IVPB 100 mls/hr Q8 SCOTTY Administration Dexmedetomidine HCl 400 mcg/ 100 mls @ 2.26 mls/hr 01/21/17 10:30 Sodium Chloride IV TITR PRN sedation Protocol 0.2 MCG/KG/HR Insulin Glargine 16 unit 01/21/17 16:30 Lantus SC BIDAC SCOTTY Insulin Human Regular 0 unit 01/18/17 21:15 01/21/17 13:20 Novolin R SC 2 unit Q6 SCOTTY Administration Protocol Ipratropium [place] 0.5 mg 01/18/17 15:39 Atrovent IH RQ6 PRN Shortness of Breath Levetiracetam 750 mg 01/18/17 10:00 01/21/17 09:05 Keppra PO 750 mg BID SCOTTY Administration Levothyroxine Sodium 25 mcg 01/18/17 06:30 01/21/17 06:02 Synthroid PO 25 mcg DAILY@0630 SCOTTY Administration Magnesium Hydroxide 30 ml 01/17/17 21:49 Milk Of Magnesia PO DAILY PRN Constipation Pantoprazole Sodium 40 mg 01/19/17 10:00 01/21/17 09:05 Protonix Inj IVP 40 mg DAILY SCOTTY Administration Rosuvastatin Calcium 20 mg 01/18/17 22:00 01/20/17 21:36 Crestor PO 20 mg HS SCOTTY Administration Saccharomyces Boulardii 250 mg 01/18/17 18:00 01/21/17 09:05 Florastor PO 250 mg BID SCOTTY Administration Spironolactone 12.5 mg 01/20/17 18:00 01/21/17 09:21 Aldactone PO 12.5 mg BID SCOTTY Administration - Patient Studies Lab Studies: Microbiology Studies 01/18/17 17:48 Urine Culture - Preliminary Urine,Catheterized Gram Negative Jose Eduardo Yeast Species 01/17/17 20:30 Blood Culture - Preliminary Blood-Venous NO GROWTH AFTER 3 DAYS 01/17/17 20:00 Blood Culture - Preliminary Blood-Venous NO GROWTH AFTER 3 DAYS Lab Studies 01/21/17 01/21/17 01/21/17 Range/Units 11:30 06:18 06:18 WBC 5.5 (4.8-10.8) K/uL RBC 3.59 L (3.80-5.20) Mil/uL Hgb 9.5 L (11.0-16.0) g/dL Hct 29.0 L (34.0-47.0) % MCV 80.8 L (81.0-99.0) fL MCH 26.6 L (27.0-31.0) pg MCHC 32.9 L (33.0-37.0) g/dL RDW 15.4 H (11.5-14.5) % Plt Count 230 (130-400) K/uL MPV 8.6 (7.2-11.7) fL Neut % (Auto) 60.0 (50.0-75.0) % Lymph % (Auto) 26.7 (20.0-40.0) % [place] % (Auto) 8.7 (0.0-10.0) % Eos % (Auto) 2.0 (0.0-4.0) % Baso % (Auto) 2.6 H (0.0-2.0) % Neut # 3.3 (1.8-7.0) K/uL Lymph # 1.5 (1.0-4.3) K/uL [place] # 0.5 (0.0-0.8) K/uL Eos # 0.1 (0.0-0.7) K/uL Baso # 0.1 (0.0-0.2) K/uL Puncture Site pCO2 (35-45) mm/Hg pO2 (80-100) mm/Hg HCO3 (21-28) mmol/L ABG pH (7.35-7.45) ABG Total CO2 (22-28) mmol/L ABG O2 Saturation (95-98) % ABG Base Excess (-2.0-3.0) mmol/L ABG Hemoglobin (11.7-17.4) g/dL ABG Carboxyhemoglobin (0.5-1.5) % POC ABG HHb (Measured) (0.0-5.0) % ABG Methemoglobin (0.0-3.0) % Singh Test A-a O2 Difference mm/Hg Respiratory Index Hgb O2 Saturation (95.0-98.0) % Vent Mode Mechanical Rate FiO2 % Tidal Volume PEEP Sodium 135 (132-148) mmol/L Potassium 4.6 (3.6-5.2) mmol/L Chloride 106 (98-107) mmol/L Carbon Dioxide 24 (22-30) mmol/L Anion Gap 10 (10-20) BUN 35 H (7-17) mg/dL Creatinine 0.5 L (0.7-1.2) mg/dL Est GFR ( Amer) > 60 Est GFR (Non-Af Amer) > 60 POC Glucose (mg/dL) 225 H (65-110) mg/dL Random Glucose 413 H* D (65-105) mg/dL Calcium 7.5 L (8.6-10.4) mg/dl Phosphorus 3.5 (2.5-4.5) mg/dL Magnesium 1.9 (1.6-2.3) mg/dL Total Bilirubin 0.4 (0.2-1.3) mg/dL AST 21 (14-36) U/L ALT 54 H D (9-52) U/L Alkaline Phosphatase 179 H D (38-126) U/L Total Protein 7.2 (6.3-8.3) g/dL Albumin 2.9 L (3.5-5.0) g/dL Globulin 4.3 H (2.2-3.9) gm/dL Albumin/Globulin Ratio 0.7 L (1.0-2.1) 01/21/17 01/21/17 01/21/17 Range/Units 06:00 05:23 00:11 WBC (4.8-10.8) K/uL RBC (3.80-5.20) Mil/uL Hgb (11.0-16.0) g/dL Hct (34.0-47.0) % MCV (81.0-99.0) fL MCH (27.0-31.0) pg MCHC (33.0-37.0) g/dL RDW (11.5-14.5) % Plt Count (130-400) K/uL MPV (7.2-11.7) fL Neut % (Auto) (50.0-75.0) % Lymph % (Auto) (20.0-40.0) % [place] % (Auto) (0.0-10.0) % Eos % (Auto) (0.0-4.0) % Baso % (Auto) (0.0-2.0) % Neut # (1.8-7.0) K/uL Lymph # (1.0-4.3) K/uL [place] # (0.0-0.8) K/uL Eos # (0.0-0.7) K/uL Baso # (0.0-0.2) K/uL Puncture Site L r pCO2 29 L (35-45) mm/Hg pO2 157 H (80-100) mm/Hg HCO3 22.0 (21-28) mmol/L ABG pH 7.44 (7.35-7.45) ABG Total CO2 20.6 L (22-28) mmol/L ABG O2 Saturation 99.5 H (95-98) % ABG Base Excess -3.7 L (-2.0-3.0) mmol/L ABG Hemoglobin 9.8 L (11.7-17.4) g/dL ABG Carboxyhemoglobin 1.8 H (0.5-1.5) % POC ABG HHb (Measured) 0.5 (0.0-5.0) % ABG Methemoglobin 1.0 (0.0-3.0) % Singh Test Na A-a O2 Difference 92.0 mm/Hg Respiratory Index 0.6 Hgb O2 Saturation 96.6 (95.0-98.0) % Vent Mode Prvc Mechanical Rate 14 FiO2 40.0 % Tidal Volume 450 PEEP 5 Sodium (132-148) mmol/L Potassium (3.6-5.2) mmol/L Chloride (98-107) mmol/L Carbon Dioxide (22-30) mmol/L Anion Gap (10-20) BUN (7-17) mg/dL Creatinine (0.7-1.2) mg/dL Est GFR ( Amer) Est GFR (Non-Af Amer) POC Glucose (mg/dL) 368 H 336 H (65-110) mg/dL Random Glucose (65-105) mg/dL Calcium (8.6-10.4) mg/dl Phosphorus (2.5-4.5) mg/dL Magnesium (1.6-2.3) mg/dL Total Bilirubin (0.2-1.3) mg/dL AST (14-36) U/L ALT (9-52) U/L Alkaline Phosphatase (38-126) U/L Total Protein (6.3-8.3) g/dL Albumin (3.5-5.0) g/dL Globulin (2.2-3.9) gm/dL Albumin/Globulin Ratio (1.0-2.1) 01/20/17 Range/Units 18:31 WBC (4.8-10.8) K/uL RBC (3.80-5.20) Mil/uL Hgb (11.0-16.0) g/dL Hct (34.0-47.0) % MCV (81.0-99.0) fL MCH (27.0-31.0) pg MCHC (33.0-37.0) g/dL RDW (11.5-14.5) % Plt Count (130-400) K/uL MPV (7.2-11.7) fL Neut % (Auto) (50.0-75.0) % Lymph % (Auto) (20.0-40.0) % [place] % (Auto) (0.0-10.0) % Eos % (Auto) (0.0-4.0) % Baso % (Auto) (0.0-2.0) % Neut # (1.8-7.0) K/uL Lymph # (1.0-4.3) K/uL [place] # (0.0-0.8) K/uL Eos # (0.0-0.7) K/uL Baso # (0.0-0.2) K/uL Puncture Site pCO2 (35-45) mm/Hg pO2 (80-100) mm/Hg HCO3 (21-28) mmol/L ABG pH (7.35-7.45) ABG Total CO2 (22-28) mmol/L ABG O2 Saturation (95-98) % ABG Base Excess (-2.0-3.0) mmol/L ABG Hemoglobin (11.7-17.4) g/dL ABG Carboxyhemoglobin (0.5-1.5) % POC ABG HHb (Measured) (0.0-5.0) % ABG Methemoglobin (0.0-3.0) % Singh Test A-a O2 Difference mm/Hg Respiratory Index Hgb O2 Saturation (95.0-98.0) % Vent Mode Mechanical Rate FiO2 % Tidal Volume PEEP Sodium (132-148) mmol/L Potassium (3.6-5.2) mmol/L Chloride (98-107) mmol/L Carbon Dioxide (22-30) mmol/L Anion Gap (10-20) BUN (7-17) mg/dL Creatinine (0.7-1.2) mg/dL Est GFR ( Amer) Est GFR (Non-Af Amer) POC Glucose (mg/dL) 382 H (65-110) mg/dL Random Glucose (65-105) mg/dL Calcium (8.6-10.4) mg/dl Phosphorus (2.5-4.5) mg/dL Magnesium (1.6-2.3) mg/dL Total Bilirubin (0.2-1.3) mg/dL AST (14-36) U/L ALT (9-52) U/L Alkaline Phosphatase (38-126) U/L Total Protein (6.3-8.3) g/dL Albumin (3.5-5.0) g/dL Globulin (2.2-3.9) gm/dL Albumin/Globulin Ratio (1.0-2.1) Laboratory Results - last 24 hr 01/20/17 01/21/17 01/21/17 18:31 00:11 05:23 WBC RBC Hgb Hct MCV MCH MCHC RDW Plt Count MPV Neut % (Auto) Lymph % (Auto) [place] % (Auto) Eos % (Auto) Baso % (Auto) Neut # Lymph # [place] # Eos # Baso # Puncture Site L r pCO2 29 L pO2 157 H HCO3 22.0 ABG pH 7.44 ABG Total CO2 20.6 L ABG O2 Saturation 99.5 H ABG Base Excess -3.7 L ABG Hemoglobin 9.8 L ABG Carboxyhemoglobin 1.8 H POC ABG HHb (Measured) 0.5 ABG Methemoglobin 1.0 Singh Test Na A-a O2 Difference 92.0 Respiratory Index 0.6 Hgb O2 Saturation 96.6 Vent Mode Prvc Mechanical Rate 14 FiO2 40.0 Tidal Volume 450 PEEP 5 Sodium Potassium Chloride Carbon Dioxide Anion Gap BUN Creatinine Est GFR ( Amer) Est GFR (Non-Af Amer) POC Glucose (mg/dL) 382 H 336 H Random Glucose Calcium Phosphorus Magnesium Total Bilirubin AST ALT Alkaline Phosphatase Total Protein Albumin Globulin Albumin/Globulin Ratio 01/21/17 01/21/17 01/21/17 06:00 06:18 06:18 WBC 5.5 RBC 3.59 L Hgb 9.5 L Hct 29.0 L MCV 80.8 L MCH 26.6 L MCHC 32.9 L RDW 15.4 H Plt Count 230 MPV 8.6 Neut % (Auto) 60.0 Lymph % (Auto) 26.7 [place] % (Auto) 8.7 Eos % (Auto) 2.0 Baso % (Auto) 2.6 H Neut # 3.3 Lymph # 1.5 [place] # 0.5 Eos # 0.1 Baso # 0.1 Puncture Site pCO2 pO2 HCO3 ABG pH ABG Total CO2 ABG O2 Saturation ABG Base Excess ABG Hemoglobin ABG Carboxyhemoglobin POC ABG HHb (Measured) ABG Methemoglobin Singh Test A-a O2 Difference Respiratory Index Hgb O2 Saturation Vent Mode Mechanical Rate FiO2 Tidal Volume PEEP Sodium 135 Potassium 4.6 Chloride 106 Carbon Dioxide 24 Anion Gap 10 BUN 35 H Creatinine 0.5 L Est GFR ( Amer) > 60 Est GFR (Non-Af Amer) > 60 POC Glucose (mg/dL) 368 H Random Glucose 413 H* D Calcium 7.5 L Phosphorus 3.5 Magnesium 1.9 Total Bilirubin 0.4 AST 21 ALT 54 H D Alkaline Phosphatase 179 H D Total Protein 7.2 Albumin 2.9 L Globulin 4.3 H Albumin/Globulin Ratio 0.7 L 01/21/17 11:30 WBC RBC Hgb Hct MCV MCH MCHC RDW Plt Count MPV Neut % (Auto) Lymph % (Auto) [place] % (Auto) Eos % (Auto) Baso % (Auto) Neut # Lymph # [place] # Eos # Baso # Puncture Site pCO2 pO2 HCO3 ABG pH ABG Total CO2 ABG O2 Saturation ABG Base Excess ABG Hemoglobin ABG Carboxyhemoglobin POC ABG HHb (Measured) ABG Methemoglobin Singh Test A-a O2 Difference Respiratory Index Hgb O2 Saturation Vent Mode Mechanical Rate FiO2 Tidal Volume PEEP Sodium Potassium Chloride Carbon Dioxide Anion Gap BUN Creatinine Est GFR ( Amer) Est GFR (Non-Af Amer) POC Glucose (mg/dL) 225 H Random Glucose Calcium Phosphorus Magnesium Total Bilirubin AST ALT Alkaline Phosphatase Total Protein Albumin Globulin Albumin/Globulin Ratio Fingerstick Blood Sugar Results: 225 Review of Systems - Review of Systems Systems not reviewed;Unavailable: Intubated Assessment/Plan - Assessment and Plan (Free Text) Assessment: Patient is an 81 year old female presenting to the hospital with vague chest pain that needed to be intubated due to respiratory failure from hypercapnia. Patient was transferred to the ICU for further evaluation. Plan: Pulmonary: Intubated (01/18) COPD Acute hypeoxemic respiratory failure Pneumonia CXR 01/21/17 - Worsening now small left pleural effusion. Biapical pleural thickening with upper lobe granulomatous changes. Diffuse increased interstitial lung markings. Scattered nodularity throughout the right lung. Calcification at the aortic knob. Cardiomegaly. Tortuous ectatic aorta. Multiple bilateral rib deformities. Right humeral deformity. Multiple lobulated calcifications within the right breast. ABG - pCO2 29, pO2 157, HCO3 22.0, pH 7.44 on vent settings 450/40/14/5 - Patient tolerated CPAP for approx. 4 hours yesterday, continue CPAP trails today WBC 5.5 Procalcitonin 01/18 - 0.06 Atrovent 0.5mg IH q6h PRN Azithromycin 500mg IVPB daily Aztreonam 2gm IVPB q8h Clindamycin 600mg IVPB q8h Solumedrol 20mg - once Lasix 20mg - once Blood Culture negative at 3 days x 2 CV: Cardio - Dr. Crowell consulted, help appreciated hx of Afib (currently sinus on monitor) HTN Trop 0.027/0.025/0.023 Pro-BNP 2310 Diltiazem 30mg PO qid Crestor 20mg PO HS Aspirin 81mg PO daily Metoprolol Tartrate 75mg PO q8h - discontinued Enalapril Maleate 2.5 mg PO daily Losartan 100mg PO daily - discontinued Spironolactone 12.5mg PO BID Neuro: hx of seizures hx of CVA Propofol drip - discontinued Precedex drip Keppra 750mg PO BID Endo: DM2 Hypothyroidism Lantus 10 units SC BIDAC - restarted ISS - q6h Synthroid 25mcg PO daily : UTI urine culture 01/18 - gram negative rods/yeast - awaiting sensitivities Prophylactic Care: Lovenox 40mg SC daily Protonix 40mg IVP daily Folic Acid 1mg PO daily Florastor 250mg PO BID Tube feeding Case discussed with Dr. Oh Amos PGY1 <Alec Banks - Last Filed: 01/21/17 18:58> CCU Subjective - Physician Review Critical Care Time Spent (in minutes): 35 CCU Objective - Vital Signs / Intake & Output Vital Signs (Last 4 hours): Vital Signs Temp Pulse Resp BP Pulse Ox 01/21/17 18:05 82 14 120/69 01/21/17 18:00 89 14 119/65 100 01/21/17 17:06 73 14 119/65 100 01/21/17 17:00 74 14 102/63 100 01/21/17 16:05 77 14 102/63 100 01/21/17 16:00 97.5 F L 81 14 105/56 L 100 01/21/17 15:06 76 14 105/56 L 100 01/21/17 15:00 79 14 134/76 100 Intake and Output (Last 8hrs): Intake & Output 01/21/17 01/21/17 01/21/17 06:59 14:59 22:59 Intake Total 353.8 472.7 262.4 Output Total 400 650 125 Balance -46.2 -177.3 137.4 Weight 100 lb Intake: IV 10 12 9 Intake, IV Amount 13.8 155.7 13.4 Left Medial Port Internal 13.8 5.7 13.4 Jugular Right Antecubital 150 Tube Feeding 280 175 140 Other 50 130 100 Output: Urine 400 650 125 Urine, Voided 400 650 125 - Medications Active Medications: Active Medications Generic Name Dose Route Start Last Admin Trade Name Freq PRN Reason Stop Dose Admin Acetaminophen 650 mg 01/17/17 21:49 01/18/17 15:23 Tylenol 325mg Tab PO 650 mg Q6 PRN Administration Pain, moderate (4-7) Aspirin 81 mg 01/18/17 10:00 01/21/17 09:05 Ecotrin PO 81 mg DAILY SCOTTY Administration Calcium Carbonate 500 mg 01/18/17 10:00 01/21/17 17:05 Oscal PO 500 mg BID SCOTTY Administration Diltiazem HCl 30 mg 01/17/17 22:00 01/21/17 17:07 Cardizem PO 30 mg QID SCOTTY Administration Enalapril Maleate 2.5 mg 01/21/17 10:00 01/21/17 09:06 Vasotec PO 2.5 mg DAILY SCOTTY Administration Enoxaparin Sodium 40 mg 01/18/17 10:00 01/21/17 09:05 Lovenox SC 40 mg DAILY SCOTTY Administration Folic Acid 1 mg 01/18/17 10:00 01/21/17 09:04 Folic Acid PO 1 mg DAILY SCOTTY Administration Azithromycin 500 mg/ Sodium 250 mls @ 250 mls/hr 01/18/17 10:00 01/21/17 09: 24 Chloride IVPB 250 mls/hr DAILY SCOTTY Administration Aztreonam 2 gm/ Sodium 100 mls @ 200 mls/hr 01/18/17 19:00 01/21/17 18:50 Chloride IVPB 200 mls/hr Q8H SCOTTY Administration Clindamycin Phosphate 600 mg/ 54 mls @ 100 mls/hr 01/18/17 22:00 01/21/17 13: 42 Sodium Chloride IVPB 100 mls/hr Q8 SCOTTY Administration Dexmedetomidine HCl 400 mcg/ 100 mls @ 2.26 mls/hr 01/21/17 10:30 01/21/17 16 :53 Sodium Chloride IV 0.4 mcg/kg/hr TITR PRN 4.53 mls/hr sedation Titration Protocol 0.2 MCG/KG/HR Insulin Glargine 10 unit 01/21/17 16:30 01/21/17 16:57 Lantus SC 10 units BIDAC SCOTTY Administration Insulin Human Regular 0 unit 01/18/17 21:15 01/21/17 18:45 Novolin R SC 3 unit Q6 SCOTTY Administration Protocol Ipratropium [place] 0.5 mg 01/18/17 15:39 Atrovent IH RQ6 PRN Shortness of Breath Levetiracetam 750 mg 01/18/17 10:00 01/21/17 17:05 Keppra PO 750 mg BID SCOTTY Administration Levothyroxine Sodium 25 mcg 01/18/17 06:30 01/21/17 06:02 Synthroid PO 25 mcg DAILY@0630 SCOTTY Administration Magnesium Hydroxide 30 ml 01/17/17 21:49 01/21/17 09:10 Milk Of Magnesia PO 30 ml DAILY PRN Administration Constipation Pantoprazole Sodium 40 mg 01/19/17 10:00 01/21/17 09:05 Protonix Inj IVP 40 mg DAILY SCOTTY Administration Rosuvastatin Calcium 20 mg 01/18/17 22:00 01/20/17 21:36 Crestor PO 20 mg HS SCOTTY Administration Saccharomyces Boulardii 250 mg 01/18/17 18:00 01/21/17 17:05 Florastor PO 250 mg BID SCOTTY Administration Spironolactone 12.5 mg 01/20/17 18:00 01/21/17 17:05 Aldactone PO 12.5 mg BID SCOTTY Administration - Patient Studies Lab Studies: Microbiology Studies 01/18/17 17:48 Urine Culture - Preliminary Urine,Catheterized Gram Negative Jose Eduardo Yeast Species 01/17/17 20:30 Blood Culture - Preliminary Blood-Venous NO GROWTH AFTER 3 DAYS 01/17/17 20:00 Blood Culture - Preliminary Blood-Venous NO GROWTH AFTER 3 DAYS Lab Studies 01/21/17 01/21/17 01/21/17 Range/Units 18:43 11:30 06:18 WBC (4.8-10.8) K/uL RBC (3.80-5.20) Mil/uL Hgb (11.0-16.0) g/dL Hct (34.0-47.0) % MCV (81.0-99.0) fL MCH (27.0-31.0) pg MCHC (33.0-37.0) g/dL RDW (11.5-14.5) % Plt Count (130-400) K/uL MPV (7.2-11.7) fL Neut % (Auto) (50.0-75.0) % Lymph % (Auto) (20.0-40.0) % [place] % (Auto) (0.0-10.0) % Eos % (Auto) (0.0-4.0) % Baso % (Auto) (0.0-2.0) % Neut # (1.8-7.0) K/uL Lymph # (1.0-4.3) K/uL [place] # (0.0-0.8) K/uL Eos # (0.0-0.7) K/uL Baso # (0.0-0.2) K/uL Puncture Site pCO2 (35-45) mm/Hg pO2 (80-100) mm/Hg HCO3 (21-28) mmol/L ABG pH (7.35-7.45) ABG Total CO2 (22-28) mmol/L ABG O2 Saturation (95-98) % ABG Base Excess (-2.0-3.0) mmol/L ABG Hemoglobin (11.7-17.4) g/dL ABG Carboxyhemoglobin (0.5-1.5) % POC ABG HHb (Measured) (0.0-5.0) % ABG Methemoglobin (0.0-3.0) % Singh Test A-a O2 Difference mm/Hg Respiratory Index Hgb O2 Saturation (95.0-98.0) % Vent Mode Mechanical Rate FiO2 % Tidal Volume PEEP Sodium 135 (132-148) mmol/L Potassium 4.6 (3.6-5.2) mmol/L Chloride 106 (98-107) mmol/L Carbon Dioxide 24 (22-30) mmol/L Anion Gap 10 (10-20) BUN 35 H (7-17) mg/dL Creatinine 0.5 L (0.7-1.2) mg/dL Est GFR ( Amer) > 60 Est GFR (Non-Af Amer) > 60 POC Glucose (mg/dL) 280 H 225 H (65-110) mg/dL Random Glucose 413 H* D (65-105) mg/dL Calcium 7.5 L (8.6-10.4) mg/dl Phosphorus 3.5 (2.5-4.5) mg/dL Magnesium 1.9 (1.6-2.3) mg/dL Total Bilirubin 0.4 (0.2-1.3) mg/dL AST 21 (14-36) U/L ALT 54 H D (9-52) U/L Alkaline Phosphatase 179 H D (38-126) U/L Total Protein 7.2 (6.3-8.3) g/dL Albumin 2.9 L (3.5-5.0) g/dL Globulin 4.3 H (2.2-3.9) gm/dL Albumin/Globulin Ratio 0.7 L (1.0-2.1) 01/21/17 01/21/17 01/21/17 Range/Units 06:18 06:00 05:23 WBC 5.5 (4.8-10.8) K/uL RBC 3.59 L (3.80-5.20) Mil/uL Hgb 9.5 L (11.0-16.0) g/dL Hct 29.0 L (34.0-47.0) % MCV 80.8 L (81.0-99.0) fL MCH 26.6 L (27.0-31.0) pg MCHC 32.9 L (33.0-37.0) g/dL RDW 15.4 H (11.5-14.5) % Plt Count 230 (130-400) K/uL MPV 8.6 (7.2-11.7) fL Neut % (Auto) 60.0 (50.0-75.0) % Lymph % (Auto) 26.7 (20.0-40.0) % [place] % (Auto) 8.7 (0.0-10.0) % Eos % (Auto) 2.0 (0.0-4.0) % Baso % (Auto) 2.6 H (0.0-2.0) % Neut # 3.3 (1.8-7.0) K/uL Lymph # 1.5 (1.0-4.3) K/uL [place] # 0.5 (0.0-0.8) K/uL Eos # 0.1 (0.0-0.7) K/uL Baso # 0.1 (0.0-0.2) K/uL Puncture Site L r pCO2 29 L (35-45) mm/Hg pO2 157 H (80-100) mm/Hg HCO3 22.0 (21-28) mmol/L ABG pH 7.44 (7.35-7.45) ABG Total CO2 20.6 L (22-28) mmol/L ABG O2 Saturation 99.5 H (95-98) % ABG Base Excess -3.7 L (-2.0-3.0) mmol/L ABG Hemoglobin 9.8 L (11.7-17.4) g/dL ABG Carboxyhemoglobin 1.8 H (0.5-1.5) % POC ABG HHb (Measured) 0.5 (0.0-5.0) % ABG Methemoglobin 1.0 (0.0-3.0) % Singh Test Na A-a O2 Difference 92.0 mm/Hg Respiratory Index 0.6 Hgb O2 Saturation 96.6 (95.0-98.0) % Vent Mode Prvc Mechanical Rate 14 FiO2 40.0 % Tidal Volume 450 PEEP 5 Sodium (132-148) mmol/L Potassium (3.6-5.2) mmol/L Chloride (98-107) mmol/L Carbon Dioxide (22-30) mmol/L Anion Gap (10-20) BUN (7-17) mg/dL Creatinine (0.7-1.2) mg/dL Est GFR ( Amer) Est GFR (Non-Af Amer) POC Glucose (mg/dL) 368 H (65-110) mg/dL Random Glucose (65-105) mg/dL Calcium (8.6-10.4) mg/dl Phosphorus (2.5-4.5) mg/dL Magnesium (1.6-2.3) mg/dL Total Bilirubin (0.2-1.3) mg/dL AST (14-36) U/L ALT (9-52) U/L Alkaline Phosphatase (38-126) U/L Total Protein (6.3-8.3) g/dL Albumin (3.5-5.0) g/dL Globulin (2.2-3.9) gm/dL Albumin/Globulin Ratio (1.0-2.1) 01/21/17 Range/Units 00:11 WBC (4.8-10.8) K/uL RBC (3.80-5.20) Mil/uL Hgb (11.0-16.0) g/dL Hct (34.0-47.0) % MCV (81.0-99.0) fL MCH (27.0-31.0) pg MCHC (33.0-37.0) g/dL RDW (11.5-14.5) % Plt Count (130-400) K/uL MPV (7.2-11.7) fL Neut % (Auto) (50.0-75.0) % Lymph % (Auto) (20.0-40.0) % [place] % (Auto) (0.0-10.0) % Eos % (Auto) (0.0-4.0) % Baso % (Auto) (0.0-2.0) % Neut # (1.8-7.0) K/uL Lymph # (1.0-4.3) K/uL [place] # (0.0-0.8) K/uL Eos # (0.0-0.7) K/uL Baso # (0.0-0.2) K/uL Puncture Site pCO2 (35-45) mm/Hg pO2 (80-100) mm/Hg HCO3 (21-28) mmol/L ABG pH (7.35-7.45) ABG Total CO2 (22-28) mmol/L ABG O2 Saturation (95-98) % ABG Base Excess (-2.0-3.0) mmol/L ABG Hemoglobin (11.7-17.4) g/dL ABG Carboxyhemoglobin (0.5-1.5) % POC ABG HHb (Measured) (0.0-5.0) % ABG Methemoglobin (0.0-3.0) % Singh Test A-a O2 Difference mm/Hg Respiratory Index Hgb O2 Saturation (95.0-98.0) % Vent Mode Mechanical Rate FiO2 % Tidal Volume PEEP Sodium (132-148) mmol/L Potassium (3.6-5.2) mmol/L Chloride (98-107) mmol/L Carbon Dioxide (22-30) mmol/L Anion Gap (10-20) BUN (7-17) mg/dL Creatinine (0.7-1.2) mg/dL Est GFR ( Amer) Est GFR (Non-Af Amer) POC Glucose (mg/dL) 336 H (65-110) mg/dL Random Glucose (65-105) mg/dL Calcium (8.6-10.4) mg/dl Phosphorus (2.5-4.5) mg/dL Magnesium (1.6-2.3) mg/dL Total Bilirubin (0.2-1.3) mg/dL AST (14-36) U/L ALT (9-52) U/L Alkaline Phosphatase (38-126) U/L Total Protein (6.3-8.3) g/dL Albumin (3.5-5.0) g/dL Globulin (2.2-3.9) gm/dL Albumin/Globulin Ratio (1.0-2.1) Laboratory Results - last 24 hr 01/21/17 01/21/17 01/21/17 00:11 05:23 06:00 WBC RBC Hgb Hct MCV MCH MCHC RDW Plt Count MPV Neut % (Auto) Lymph % (Auto) [place] % (Auto) Eos % (Auto) Baso % (Auto) Neut # Lymph # [place] # Eos # Baso # Puncture Site L r pCO2 29 L pO2 157 H HCO3 22.0 ABG pH 7.44 ABG Total CO2 20.6 L ABG O2 Saturation 99.5 H ABG Base Excess -3.7 L ABG Hemoglobin 9.8 L ABG Carboxyhemoglobin 1.8 H POC ABG HHb (Measured) 0.5 ABG Methemoglobin 1.0 Singh Test Na A-a O2 Difference 92.0 Respiratory Index 0.6 Hgb O2 Saturation 96.6 Vent Mode Prvc Mechanical Rate 14 FiO2 40.0 Tidal Volume 450 PEEP 5 Sodium Potassium Chloride Carbon Dioxide Anion Gap BUN Creatinine Est GFR ( Amer) Est GFR (Non-Af Amer) POC Glucose (mg/dL) 336 H 368 H Random Glucose Calcium Phosphorus Magnesium Total Bilirubin AST ALT Alkaline Phosphatase Total Protein Albumin Globulin Albumin/Globulin Ratio 01/21/17 01/21/17 01/21/17 06:18 06:18 11:30 WBC 5.5 RBC 3.59 L Hgb 9.5 L Hct 29.0 L MCV 80.8 L MCH 26.6 L MCHC 32.9 L RDW 15.4 H Plt Count 230 MPV 8.6 Neut % (Auto) 60.0 Lymph % (Auto) 26.7 [place] % (Auto) 8.7 Eos % (Auto) 2.0 Baso % (Auto) 2.6 H Neut # 3.3 Lymph # 1.5 [place] # 0.5 Eos # 0.1 Baso # 0.1 Puncture Site pCO2 pO2 HCO3 ABG pH ABG Total CO2 ABG O2 Saturation ABG Base Excess ABG Hemoglobin ABG Carboxyhemoglobin POC ABG HHb (Measured) ABG Methemoglobin Singh Test A-a O2 Difference Respiratory Index Hgb O2 Saturation Vent Mode Mechanical Rate FiO2 Tidal Volume PEEP Sodium 135 Potassium 4.6 Chloride 106 Carbon Dioxide 24 Anion Gap 10 BUN 35 H Creatinine 0.5 L Est GFR ( Amer) > 60 Est GFR (Non-Af Amer) > 60 POC Glucose (mg/dL) 225 H Random Glucose 413 H* D Calcium 7.5 L Phosphorus 3.5 Magnesium 1.9 Total Bilirubin 0.4 AST 21 ALT 54 H D Alkaline Phosphatase 179 H D Total Protein 7.2 Albumin 2.9 L Globulin 4.3 H Albumin/Globulin Ratio 0.7 L 01/21/17 18:43 WBC RBC Hgb Hct MCV MCH MCHC RDW Plt Count MPV Neut % (Auto) Lymph % (Auto) [place] % (Auto) Eos % (Auto) Baso % (Auto) Neut # Lymph # [place] # Eos # Baso # Puncture Site pCO2 pO2 HCO3 ABG pH ABG Total CO2 ABG O2 Saturation ABG Base Excess ABG Hemoglobin ABG Carboxyhemoglobin POC ABG HHb (Measured) ABG Methemoglobin Singh Test A-a O2 Difference Respiratory Index Hgb O2 Saturation Vent Mode Mechanical Rate FiO2 Tidal Volume PEEP Sodium Potassium Chloride Carbon Dioxide Anion Gap BUN Creatinine Est GFR ( Amer) Est GFR (Non-Af Amer) POC Glucose (mg/dL) 280 H Random Glucose Calcium Phosphorus Magnesium Total Bilirubin AST ALT Alkaline Phosphatase Total Protein Albumin Globulin Albumin/Globulin Ratio Assessment/Plan - Assessment and Plan (Free Text) Plan: Patient seen and examined at bedside. Vitals reviewed Hypoxic respiratory failure: CXR c/w ground glass opacity, suspect fluid congestion, lasix 20 mg today HTN: currently on acei and ARB, and low dose of ccb and beta chapin, d/c one of each class continue to monitor BP Patient did not tolerate CPAP -continue current management -cc time 35 minutes - Date & Time Date: 01/21/17 Time: 18:58
--- NOTE | 2017-01-21 15:14 | PN ---
DATE: SUBJECTIVE: The patient is still intubated. She is currently back on assist-control after being on CPAP. No reported dysphagia. No reported hypotension. PHYSICAL EXAMINATION VITAL SIGNS: Blood pressure 117/58, heart rate 80, temperature 98, and respirations 15. HEENT: Pale conjunctivae. CHEST: Bilateral rhonchi. HEART: S1 and S2 regular. EXTREMITIES: Contracture deformity. LABORATORY DATA: SMA-7: Sodium 135, potassium 4.6, chloride 106, CO2 24, glucose 415, BUN 35, creatinine 0.5. Hemoglobin and hematocrit 9.5 and 29.0, white count 5.5, platelet count 230,000. ASSESSMENT: 1. Acute respiratory failure. 2. History of supraventricular tachycardia. 3. Systolic heart failure. 4. Hypothyroidism.. 5. Seizure disorder. 6. Urinary tract infection of yeast species. RECOMMENDATIONS: Continue Aldactone 12.5 mg once a day, IV Zithromax and IV Azactam as well as IV clindamycin. Continue Cardizem 300 mg q.i.d., aspirin 81 mg once a day, Keppra 750 mg once a day, subcutaneous Lovenox at 40 mg once a day, Synthroid 25 mcg once a day, Vasotec at 2.5 mg daily. Florian Crowell MD
[2017-01-21] MEDS: (Lantus) Insulin Glargine, Recombinant SC SCH (16:57)
--- NOTE | 2017-01-21 22:20 | CP.PCM.PN ---
Subjective - Date & Time of Evaluation Date of Evaluation: 01/21/17 Time of Evaluation: 18:50 - Subjective Subjective: pt still on ventilator, she is doing better, more alert. he tolerated CPAP Objective - Vital Signs/Intake and Output Vital Signs (last 24 hours): Temp Pulse Resp BP Pulse Ox 97.6 F 78 14 119/68 100 01/21/17 20:00 01/21/17 21:05 01/21/17 21:05 01/21/17 21:05 01/21/17 21:01 Intake and Output: 01/21/17 01/22/17 18:59 06:59 Intake Total 735.1 237.3 Output Total 775 20 Balance -39.9 217.3 - Medications Medications: Current Medications Acetaminophen (Tylenol 325mg Tab) 650 mg PO Q6 PRN PRN Reason: Pain, moderate (4-7) Last Admin: 01/18/17 15:23 Dose: 650 mg Aspirin (Ecotrin) 81 mg PO DAILY [facility] Last Admin: 01/21/17 09:05 Dose: 81 mg Calcium Carbonate (Oscal) 500 mg PO BID [facility] Last Admin: 01/21/17 17:05 Dose: 500 mg Diltiazem HCl (Cardizem) 30 mg PO QID [facility] Last Admin: 01/21/17 21:34 Dose: 30 mg Enalapril Maleate (Vasotec) 2.5 mg PO DAILY [facility] Last Admin: 01/21/17 09:06 Dose: 2.5 mg Enoxaparin Sodium (Lovenox) 40 mg SC DAILY [facility] Last Admin: 01/21/17 09:05 Dose: 40 mg Folic Acid (Folic Acid) 1 mg PO DAILY [facility] Last Admin: 01/21/17 09:04 Dose: 1 mg Azithromycin 500 mg/ Sodium (Chloride) 250 mls @ 250 mls/hr IVPB DAILY [facility] Last Admin: 01/21/17 09:24 Dose: 250 mls/hr Aztreonam 2 gm/ Sodium (Chloride) 100 mls @ 200 mls/hr IVPB Q8H [facility] Last Admin: 01/21/17 18:50 Dose: 200 mls/hr Clindamycin Phosphate 600 mg/ (Sodium Chloride) 54 mls @ 100 mls/hr IVPB Q8 [facility] Last Admin: 01/21/17 21:34 Dose: 100 mls/hr Dexmedetomidine HCl 400 mcg/ (Sodium Chloride) 100 mls @ 2.26 mls/hr IV TITR PRN; Protocol; 0.2 MCG/KG/HR PRN Reason: sedation Last Titration: 01/21/17 20:00 Dose: 0.2 mcg/kg/hr, 2.26 mls/hr Insulin Glargine (Lantus) 10 unit SC BIDAC [facility] Last Admin: 01/21/17 16:57 Dose: 10 units Insulin Human Regular (Novolin R) 0 unit SC Q6 [facility] PRN Reason: Protocol Last Admin: 01/21/17 18:45 Dose: 3 unit Ipratropium [place] (Atrovent) 0.5 mg IH RQ6 PRN PRN Reason: Shortness of Breath Levetiracetam (Keppra) 750 mg PO BID [facility] Last Admin: 01/21/17 17:05 Dose: 750 mg Levothyroxine Sodium (Synthroid) 25 mcg PO DAILY@0630 [facility] Last Admin: 01/21/17 06:02 Dose: 25 mcg Magnesium Hydroxide (Milk Of Magnesia) 30 ml PO DAILY PRN PRN Reason: Constipation Last Admin: 01/21/17 09:10 Dose: 30 ml Pantoprazole Sodium (Protonix Inj) 40 mg IVP DAILY [facility] Last Admin: 01/21/17 09:05 Dose: 40 mg Rosuvastatin Calcium (Crestor) 20 mg PO HS [facility] Last Admin: 01/21/17 21:34 Dose: 20 mg Saccharomyces Boulardii (Florastor) 250 mg PO BID [facility] Last Admin: 01/21/17 17:05 Dose: 250 mg Spironolactone (Aldactone) 12.5 mg PO BID [facility] Last Admin: 01/21/17 17:05 Dose: 12.5 mg - Labs Labs: 01/21/17 06:18 01/21/17 06:18 - Constitutional Appears: No Acute Distress - Head Exam Head Exam: ATRAUMATIC, NORMAL INSPECTION, NORMOCEPHALIC - Eye Exam Eye Exam: EOMI, Normal appearance, PERRL Pupil Exam: NORMAL ACCOMODATION, PERRL - Respiratory Exam Respiratory Exam: Decreased Breath Sounds, Rales, Rhonchi - Cardiovascular Exam Cardiovascular Exam: REGULAR RHYTHM, +S1, +S2. absent: Murmur - GI/Abdominal Exam GI & Abdominal Exam: Soft, Normal Bowel Sounds. absent: Tenderness - Rectal Exam Rectal Exam: Deferred Assessment and Plan (1) Respiratory failure Status: Acute (2) Seizure disorder Status: Acute (3) Uncontrolled blood glucose Status: Acute (4) Systolic CHF Status: Acute
[2017-01-22] MEDS: (Novolin R) Insulin Human Regular 100 units/ml vial SC SCH ×2 (00:45→05:19)
[2017-01-22] MEDS: Aztreonam 2 GM in Sodium Chloride 0.9% 100 ML IVPB SCH ×3 (03:38→18:55)
[2017-01-22] MEDS: Levothyroxine 25 MCG TAB PO SCH (05:33)
[2017-01-22 05:48] LABS: ARTERIAL BLOOD GAS HCO3 24.5 mmol/L (21-28); ARTERIAL BLOOD GAS HEMOGLOBIN 9.8 g/dL (11.7-17.4); ARTERIAL BLOOD GAS O2 SAT 99.2 % (95-98); ARTERIAL BLOOD GAS PCO2 29 mm/Hg (35-45); ARTERIAL BLOOD GAS PH 7.49 (7.35-7.45); ARTERIAL BLOOD GAS PO2 166 mm/Hg (80-100)
[2017-01-22 06:13] LABS: BASO % 0.8 % (0.0-2.0); EOS % 0.1 % (0.0-4.0); HEMOGLOBIN 9.6 g/dL (11.0-16.0); LYMPH # 0.9 K/uL (1.0-4.3); LYMPH % 20.9 % (20.0-40.0); MEAN CORPUSCULAR HEMOGLOBIN 26.7 pg (27.0-31.0); MEAN CORPUSCULAR HGB CONC 32.9 g/dL (33.0-37.0); MONO # 0.4 K/uL (0.0-0.8); NEUT # 2.8 K/uL (1.8-7.0); NEUT % 68.2 % (50.0-75.0); NRBC % 0.1 % (0.0-2.0); RBC 3.59 Mil/uL (3.80-5.20); RED CELL DISTRIBUTION WIDTH 15.3 % (11.5-14.5); WHITE BLOOD COUNT 4.1 K/uL (4.8-10.8)
[2017-01-22 06:45] LABS: ALB/GLOB RATIO 0.7 (1.0-2.1); ALBUMIN 2.9 g/dL (3.5-5.0); ALT/SGPT 43 U/L (9-52); AST/SGOT 17 U/L (14-36); BLOOD UREA NITROGEN 44 mg/dL (7-17); CALCIUM 7.7 mg/dl (8.6-10.4); GFR AFRICAN-AMERICAN > 60; GFR NON-AFRICAN AMERICAN > 60; MAGNESIUM 2.2 mg/dL (1.6-2.3)
--- NOTE | 2017-01-22 07:50 | RAD ---
Chest x-ray single frontal view History: Ventilator. Comparison: 01/21/2017 Findings: Lines and tubes in stable position. Persistent small left pleural effusion. Biapical pleural thickening with upper lobe granulomatous changes. Diffuse increased interstitial lung markings. Scattered nodularity throughout the right lung. Calcification at the aortic knob. Cardiomegaly. Tortuous ectatic aorta. Multiple bilateral rib deformities. Right humeral deformity. Multiple lobulated calcifications within the right breast. Impression: No significant interval change.
[2017-01-22] MEDS: (Lantus) Insulin Glargine, Recombinant SC SCH ×2 (08:28→17:04)
[2017-01-22] MEDS: Magnesium Hydroxide Susp 30 ml UD PO PRN (09:27)
[2017-01-22] MEDS: Enoxaparin 40 mg Syringe SC SCH (09:27)
[2017-01-22] MEDS: Saccharomyces Boulardi 250 mg Cap PO SCH ×3 (09:28→18:44)
[2017-01-22] MEDS: Azithromycin 500 MG in Sodium Chloride 0.9% 250 ML IVPB SCH (09:31)
[2017-01-22] MEDS: (Novolog) Insulin Aspart, Recombinant 100 u/ml 10 ml vial SC SCH ×4 (11:46→23:44)
--- NOTE | 2017-01-22 12:24 | CP.PCM.PN ---
Subjective - Date & Time of Evaluation Date of Evaluation: 01/22/17 Time of Evaluation: 10:00 - Subjective Subjective: patient seen and examined Patient is awake and tolerating CPAP Off precedex drip Off pressors Tolerating feeding Objective - Vital Signs/Intake and Output Vital Signs (last 24 hours): Temp Pulse Resp BP Pulse Ox 98.1 F 95 H 24 98/54 L 100 01/22/17 08:00 01/22/17 11:00 01/22/17 11:00 01/22/17 10:13 01/22/17 11:00 Intake and Output: 01/22/17 01/22/17 06:59 18:59 Intake Total 810.3 274.6 Output Total 370 180 Balance 440.3 94.6 - Medications Medications: Current Medications Acetaminophen (Tylenol 325mg Tab) 650 mg PO Q6 PRN PRN Reason: Pain, moderate (4-7) Last Admin: 01/18/17 15:23 Dose: 650 mg Aspirin (Ecotrin) 81 mg PO DAILY [facility] Last Admin: 01/22/17 09:28 Dose: 81 mg Calcium Carbonate (Oscal) 500 mg PO BID [facility] Last Admin: 01/22/17 09:28 Dose: 500 mg Diltiazem HCl (Cardizem) 30 mg PO QID [facility] Last Admin: 01/22/17 09:28 Dose: 30 mg Enalapril Maleate (Vasotec) 2.5 mg PO DAILY [facility] Last Admin: 01/22/17 09:30 Dose: Not Given Enoxaparin Sodium (Lovenox) 40 mg SC DAILY [facility] Last Admin: 01/22/17 09:27 Dose: 40 mg Folic Acid (Folic Acid) 1 mg PO DAILY [facility] Last Admin: 01/22/17 09:28 Dose: 1 mg Azithromycin 500 mg/ Sodium (Chloride) 250 mls @ 250 mls/hr IVPB DAILY [facility] Last Admin: 01/22/17 09:31 Dose: 250 mls/hr Aztreonam 2 gm/ Sodium (Chloride) 100 mls @ 200 mls/hr IVPB Q8H [facility] Last Admin: 01/22/17 11:48 Dose: 200 mls/hr Dexmedetomidine HCl 400 mcg/ (Sodium Chloride) 100 mls @ 2.26 mls/hr IV TITR PRN; Protocol; 0.2 MCG/KG/HR PRN Reason: sedation Last Titration: 12/15/17 20:00 Dose: 0.2 mcg/kg/hr, 2.26 mls/hr Insulin Aspart (Novolog) 0 unit SC Q4H [facility] PRN Reason: Protocol Last Admin: 01/22/17 11:46 Dose: 4 unit Insulin Glargine (Lantus) 15 unit SC BIDAC [facility] Ipratropium [place] (Atrovent) 0.5 mg IH RQ6 PRN PRN Reason: Shortness of Breath Levetiracetam (Keppra) 750 mg PO BID [facility] Last Admin: 01/22/17 09:27 Dose: 750 mg Levothyroxine Sodium (Synthroid) 25 mcg PO DAILY@0630 [facility] Last Admin: 01/22/17 05:33 Dose: 25 mcg Magnesium Hydroxide (Milk Of Magnesia) 30 ml PO DAILY PRN PRN Reason: Constipation Last Admin: 01/22/17 09:27 Dose: 30 ml Nystatin (Nystop Topical Powder) 1 applic TOP BID [facility] Pantoprazole Sodium (Protonix Inj) 40 mg IVP DAILY [facility] Last Admin: 01/22/17 09:27 Dose: 40 mg Rosuvastatin Calcium (Crestor) 20 mg PO HS [facility] Last Admin: 01/21/17 21:34 Dose: 20 mg Saccharomyces Boulardii (Florastor) 250 mg PO BID [facility] Last Admin: 01/22/17 09:28 Dose: 250 mg Spironolactone (Aldactone) 12.5 mg PO BID [facility] Last Admin: 01/22/17 09:28 Dose: 12.5 mg - Labs Labs: 01/22/17 06:00 01/22/17 06:00 - Head Exam Head Exam: ATRAUMATIC, NORMOCEPHALIC - ENT Exam ENT Exam: Mucous Membranes Moist - Neck Exam Neck Exam: Normal Inspection - Respiratory Exam Respiratory Exam: Decreased Breath Sounds - Cardiovascular Exam Cardiovascular Exam: REGULAR RHYTHM - GI/Abdominal Exam GI & Abdominal Exam: Soft, Normal Bowel Sounds Assessment and Plan (1) Respiratory failure Assessment & Plan: Continue weaning as tolerated Continue antibiotics Continue feeding Status: Acute (2) Pneumonia Status: Acute
--- NOTE | 2017-01-22 15:44 | PN ---
DATE: SUBJECTIVE: The patient is still on a ventilator. No reported hypotension, supraventricular or ventricular tachycardia. PHYSICAL EXAMINATION VITAL SIGNS: Blood pressure 98/54, heart rate 96, temperature 98.1. HEENT: Pale conjunctivae. CHEST: Bilateral rhonchi. HEART: S1 and S2 regular. EXTREMITIES: Contracture deformity. LABORATORY DATA: SMA-7; sodium 137, potassium 4.8, chloride 108, CO2 of 28, glucose 407, BUN 44 and creatinine 0.6. Hemoglobin and hematocrit 9.6 and 29.1, white count 4.1 and platelet count 194,000. Today's chest x-ray, no significant interval change. ASSESSMENT: 1. Respiratory failure. 2. History of paroxysmal reentrant supraventricular tachycardia. 3. History of multiple falls. 4. Systolic heart failure. 5. Anemia. 6. Uncontrolled diabetes mellitus. 7. Prerenal azotemia. RECOMMENDATIONS: Continue IV Zithromax and IV Azactam. Continue Synthroid 25 mcg once a day. Keep enalapril on hold. Continue Aldactone at 12.5 mg twice a day. Florian Crowell MD
[2017-01-22 16:36] LABS: ABG ALLEN TEST POS; ARTERIAL BLOOD GAS HCO3 25.6 mmol/L (21-28); ARTERIAL BLOOD GAS O2 SAT 99.2 % (95-98); ARTERIAL BLOOD GAS PCO2 34 mm/Hg (35-45); ARTERIAL BLOOD GAS PH 7.46 (7.35-7.45); ARTERIAL BLOOD GAS PO2 99 mm/Hg (80-100); ARTERIAL BLOOD GAS TCO2 25.2 mmol/L (22-28)
--- NOTE | 2017-01-22 17:46 | CP.CCUPN ---
CCU Subjective - Physician Review Subjective (Free Text): PAtient diuresed well yesterday more than 1000 ml. Patient placed on CPAP and tolerated CPAP for more than 5 hours 01/22/17 17:43 Critical Care Time Spent (in minutes): 40 CCU Objective - Vital Signs / Intake & Output Vital Signs (Last 4 hours): Vital Signs Temp Pulse Resp BP Pulse Ox 01/22/17 17:00 106 H 33 H 100 01/22/17 16:35 90 18 127/69 100 01/22/17 16:00 98.1 F 88 23 100 01/22/17 15:34 87 26 H 112/49 L 100 01/22/17 15:00 91 H 25 H 100 01/22/17 14:34 90 24 110/46 L 100 01/22/17 14:00 91 H 26 H 100 Intake and Output (Last 8hrs): Intake & Output 01/22/17 01/22/17 01/22/17 06:59 14:59 22:59 Intake Total 535.7 274.6 0 Output Total 260 270 85 Balance 275.7 4.6 -85 Weight 101 lb 8 oz 102 lb Intake: Intake, IV Amount 220.7 204.6 0 Left Medial Port Internal 20.7 4.6 0 Jugular Left Proximal Port 200 200 0 Internal Jugular Oral 0 0 Tube Feeding 315 70 TPN/PPN 0 Blood Product 0 Lipid 0 Albumin 0 Other 0 Output: Urine 260 270 85 Urine, Voided 260 270 85 Stool 0 Emesis 0 Oral Regurgitation 0 Other 0 Other: # Bowel Movements 0 - Physical Exam Physical Exam Limitations: Negative for: Altered Mental Status Head: Positive for: Atraumatic, Normocephalic Pupils: Positive for: PERRL Extroacular Muscles: Positive for: EOMI Mouth: Positive for: Moist Mucous Membranes, Other (intubated) Respiratory/Chest: Positive for: Clear to Auscultation, Decreased Breath Sounds , Other (intubated). Negative for: Respiratory Distress, Accessory Muscle Use Cardiovascular: Positive for: Regular Rate and Rhythm, Murmurs, Normal S1, S2 Abdomen: Negative for: Tenderness, Distention, Peritoneal Signs Upper Extremity: Positive for: Normal Inspection. Negative for: Edema Lower Extremity: Positive for: Normal Inspection. Negative for: Edema Neurological: Positive for: Other (intubated) Skin: Positive for: Warm, Dry Psychiatric: Positive for: Alert, Other (intubated) - Medications Active Medications: Active Medications Generic Name Dose Route Start Last Admin Trade Name Freq PRN Reason Stop Dose Admin Acetaminophen 650 mg 01/17/17 21:49 01/18/17 15:23 Tylenol 325mg Tab PO 650 mg Q6 PRN Administration Pain, moderate (4-7) Aspirin 81 mg 01/18/17 10:00 01/22/17 09:28 Ecotrin PO 81 mg DAILY SCOTTY Administration Calcium Carbonate 500 mg 01/18/17 10:00 01/22/17 09:28 Oscal PO 500 mg BID SCOTTY Administration Diltiazem HCl 30 mg 01/17/17 22:00 01/22/17 14:43 Cardizem PO Not Given QID COUNT INCLUDES [facility] Enalapril Maleate 2.5 mg 01/21/17 10:00 01/22/17 09:30 Vasotec PO Not Given DAILY COUNT INCLUDES [facility] Enoxaparin Sodium 40 mg 01/18/17 10:00 01/22/17 09:27 Lovenox SC 40 mg DAILY SCOTTY Administration Folic Acid 1 mg 01/18/17 10:00 01/22/17 09:28 Folic Acid PO 1 mg DAILY COUNT INCLUDES [facility] Administration Azithromycin 500 mg/ Sodium 250 mls @ 250 mls/hr 01/18/17 10:00 01/22/17 09: 31 Chloride IVPB 250 mls/hr DAILY COUNT INCLUDES [facility] Administration Aztreonam 2 gm/ Sodium 100 mls @ 200 mls/hr 01/18/17 19:00 01/22/17 11:48 Chloride IVPB 200 mls/hr Q8H COUNT INCLUDES [facility] Administration Dexmedetomidine HCl 400 mcg/ 100 mls @ 2.26 mls/hr 01/21/17 10:30 01/21/17 20 :00 Sodium Chloride IV 0.2 mcg/kg/hr TITR PRN 2.26 mls/hr sedation Titration Protocol 0.2 MCG/KG/HR Insulin Aspart 0 unit 01/22/17 10:30 01/22/17 14:30 Novolog SC Not Given Q4H COUNT INCLUDES [facility] Protocol Insulin Glargine 15 unit 01/22/17 10:20 01/22/17 17:04 Lantus SC Not Given BIDAC COUNT INCLUDES THE [facility] Ipratropium Wilder 0.5 mg 01/18/17 15:39 Atrovent IH RQ6 PRN Shortness of Breath Levetiracetam 750 mg 01/18/17 10:00 01/22/17 09:27 Keppra PO 750 mg BID SCOTTY Administration Levothyroxine Sodium 25 mcg 01/18/17 06:30 01/22/17 05:33 Synthroid PO 25 mcg DAILY@0630 [facility] Administration Magnesium Hydroxide 30 ml 01/17/17 21:49 01/22/17 09:27 Milk Of Magnesia PO 30 ml DAILY PRN Administration Constipation Nystatin 1 applic 01/22/17 18:00 Nystop Topical Powder TOP BID SCOTTY Pantoprazole Sodium 40 mg 01/19/17 10:00 01/22/17 09:27 Protonix Inj IVP 40 mg DAILY SCOTTY Administration Rosuvastatin Calcium 20 mg 01/18/17 22:00 01/21/17 21:34 Crestor PO 20 mg HS SCOTTY Administration Saccharomyces Boulardii 250 mg 01/18/17 18:00 01/22/17 09:28 Florastor PO 250 mg BID SCOTTY Administration Spironolactone 12.5 mg 01/20/17 18:00 01/22/17 09:28 Aldactone PO 12.5 mg BID SCOTTY Administration - Patient Studies Lab Studies: Microbiology Studies 01/17/17 20:30 Blood Culture - Preliminary Blood-Venous NO GROWTH AFTER 4 DAYS 01/17/17 20:00 Blood Culture - Preliminary Blood-Venous NO GROWTH AFTER 4 DAYS Lab Studies 01/22/17 01/22/17 01/22/17 Range/Units 16:30 14:59 11:57 WBC (4.8-10.8) K/uL RBC (3.80-5.20) Mil/uL Hgb (11.0-16.0) g/dL Hct (34.0-47.0) % MCV (81.0-99.0) fL MCH (27.0-31.0) pg MCHC (33.0-37.0) g/dL RDW (11.5-14.5) % Plt Count (130-400) K/uL MPV (7.2-11.7) fL Neut % (Auto) (50.0-75.0) % Lymph % (Auto) (20.0-40.0) % Alcorn % (Auto) (0.0-10.0) % Eos % (Auto) (0.0-4.0) % Baso % (Auto) (0.0-2.0) % Neut # (1.8-7.0) K/uL Lymph # (1.0-4.3) K/uL Alcorn # (0.0-0.8) K/uL Eos # (0.0-0.7) K/uL Baso # (0.0-0.2) K/uL Puncture Site Lba pCO2 34 L (35-45) mm/Hg pO2 99 (80-100) mm/Hg HCO3 25.6 (21-28) mmol/L ABG pH 7.46 H (7.35-7.45) ABG Total CO2 25.2 (22-28) mmol/L ABG O2 Saturation 99.2 H (95-98) % ABG Base Excess 0.8 (-2.0-3.0) mmol/L ABG Hemoglobin (11.7-17.4) g/dL ABG Carboxyhemoglobin (0.5-1.5) % POC ABG HHb (Measured) (0.0-5.0) % ABG Methemoglobin (0.0-3.0) % Singh Test Pos ABG Potassium 4.1 (3.6-5.2) mmol/L A-a O2 Difference 72.0 mm/Hg Respiratory Index 0.7 Hgb O2 Saturation (95.0-98.0) % Glucose 91 (65-105) mg/dl Lactate 1.2 (0.7-2.1) mmol/L Vent Mode Cpap Mechanical Rate 23 FiO2 30.0 % Tidal Volume 450 PEEP 5 Pressure Support 14 Sodium 142.0 (132-148) mmol/L Potassium (3.6-5.2) mmol/L Chloride 114.0 H (98-107) mmol/L Carbon Dioxide (22-30) mmol/L Anion Gap (10-20) BUN (7-17) mg/dL Creatinine (0.7-1.2) mg/dL Est GFR ( Amer) Est GFR (Non-Af Amer) POC Glucose (mg/dL) 118 H 236 H (65-110) mg/dL Random Glucose (65-105) mg/dL Calcium (8.6-10.4) mg/dl Phosphorus (2.5-4.5) mg/dL Magnesium (1.6-2.3) mg/dL Total Bilirubin (0.2-1.3) mg/dL AST (14-36) U/L ALT (9-52) U/L Alkaline Phosphatase (38-126) U/L Total Protein (6.3-8.3) g/dL Albumin (3.5-5.0) g/dL Globulin (2.2-3.9) gm/dL Albumin/Globulin Ratio (1.0-2.1) Arterial Blood Potassium 4.1 (3.6-5.2) mmol/L 01/22/17 01/22/17 01/22/17 Range/Units 11:39 06:00 06:00 WBC 4.1 L (4.8-10.8) K/uL RBC 3.59 L (3.80-5.20) Mil/uL Hgb 9.6 L (11.0-16.0) g/dL Hct 29.1 L (34.0-47.0) % MCV 81.0 (81.0-99.0) fL MCH 26.7 L (27.0-31.0) pg MCHC 32.9 L (33.0-37.0) g/dL RDW 15.3 H (11.5-14.5) % Plt Count 194 (130-400) K/uL MPV 9.0 (7.2-11.7) fL Neut % (Auto) 68.2 (50.0-75.0) % Lymph % (Auto) 20.9 (20.0-40.0) % Alcorn % (Auto) 10.0 (0.0-10.0) % Eos % (Auto) 0.1 (0.0-4.0) % Baso % (Auto) 0.8 (0.0-2.0) % Neut # 2.8 (1.8-7.0) K/uL Lymph # 0.9 L (1.0-4.3) K/uL Alcorn # 0.4 (0.0-0.8) K/uL Eos # 0.0 (0.0-0.7) K/uL Baso # 0.0 (0.0-0.2) K/uL Puncture Site pCO2 (35-45) mm/Hg pO2 (80-100) mm/Hg HCO3 (21-28) mmol/L ABG pH (7.35-7.45) ABG Total CO2 (22-28) mmol/L ABG O2 Saturation (95-98) % ABG Base Excess (-2.0-3.0) mmol/L ABG Hemoglobin (11.7-17.4) g/dL ABG Carboxyhemoglobin (0.5-1.5) % POC ABG HHb (Measured) (0.0-5.0) % ABG Methemoglobin (0.0-3.0) % Singh Test ABG Potassium (3.6-5.2) mmol/L A-a O2 Difference mm/Hg Respiratory Index Hgb O2 Saturation (95.0-98.0) % Glucose (65-105) mg/dl Lactate (0.7-2.1) mmol/L Vent Mode Mechanical Rate FiO2 % Tidal Volume PEEP Pressure Support Sodium 137 (132-148) mmol/L Potassium 4.8 (3.6-5.2) mmol/L Chloride 108 H (98-107) mmol/L Carbon Dioxide 26 (22-30) mmol/L Anion Gap 8 L (10-20) BUN 44 H (7-17) mg/dL Creatinine 0.6 L (0.7-1.2) mg/dL Est GFR ( Amer) > 60 Est GFR (Non-Af Amer) > 60 POC Glucose (mg/dL) 269 H (65-110) mg/dL Random Glucose 407 H* (65-105) mg/dL Calcium 7.7 L (8.6-10.4) mg/dl Phosphorus 3.5 (2.5-4.5) mg/dL Magnesium 2.2 (1.6-2.3) mg/dL Total Bilirubin 0.3 (0.2-1.3) mg/dL AST 17 (14-36) U/L ALT 43 (9-52) U/L Alkaline Phosphatase 152 H (38-126) U/L Total Protein 7.1 (6.3-8.3) g/dL Albumin 2.9 L (3.5-5.0) g/dL Globulin 4.1 H (2.2-3.9) gm/dL Albumin/Globulin Ratio 0.7 L (1.0-2.1) Arterial Blood Potassium (3.6-5.2) mmol/L 01/22/17 01/22/17 01/21/17 Range/Units 05:31 05:14 23:38 WBC (4.8-10.8) K/uL RBC (3.80-5.20) Mil/uL Hgb (11.0-16.0) g/dL Hct (34.0-47.0) % MCV (81.0-99.0) fL MCH (27.0-31.0) pg MCHC (33.0-37.0) g/dL RDW (11.5-14.5) % Plt Count (130-400) K/uL MPV (7.2-11.7) fL Neut % (Auto) (50.0-75.0) % Lymph % (Auto) (20.0-40.0) % Alcorn % (Auto) (0.0-10.0) % Eos % (Auto) (0.0-4.0) % Baso % (Auto) (0.0-2.0) % Neut # (1.8-7.0) K/uL Lymph # (1.0-4.3) K/uL Alcorn # (0.0-0.8) K/uL Eos # (0.0-0.7) K/uL Baso # (0.0-0.2) K/uL Puncture Site R b pCO2 29 L (35-45) mm/Hg pO2 166 H (80-100) mm/Hg HCO3 24.5 (21-28) mmol/L ABG pH 7.49 H (7.35-7.45) ABG Total CO2 23.0 (22-28) mmol/L ABG O2 Saturation 99.2 H (95-98) % ABG Base Excess -0.6 (-2.0-3.0) mmol/L ABG Hemoglobin 9.8 L (11.7-17.4) g/dL ABG Carboxyhemoglobin 1.5 (0.5-1.5) % POC ABG HHb (Measured) 0.8 (0.0-5.0) % ABG Methemoglobin 1.1 (0.0-3.0) % Singh Test Na ABG Potassium (3.6-5.2) mmol/L A-a O2 Difference 83.0 mm/Hg Respiratory Index 0.5 Hgb O2 Saturation 96.7 (95.0-98.0) % Glucose (65-105) mg/dl Lactate (0.7-2.1) mmol/L Vent Mode Prvc Mechanical Rate 14 FiO2 40.0 % Tidal Volume 450 PEEP 5 Pressure Support Sodium (132-148) mmol/L Potassium (3.6-5.2) mmol/L Chloride (98-107) mmol/L Carbon Dioxide (22-30) mmol/L Anion Gap (10-20) BUN (7-17) mg/dL Creatinine (0.7-1.2) mg/dL Est GFR ( Amer) Est GFR (Non-Af Amer) POC Glucose (mg/dL) 320 H 331 H (65-110) mg/dL Random Glucose (65-105) mg/dL Calcium (8.6-10.4) mg/dl Phosphorus (2.5-4.5) mg/dL Magnesium (1.6-2.3) mg/dL Total Bilirubin (0.2-1.3) mg/dL AST (14-36) U/L ALT (9-52) U/L Alkaline Phosphatase (38-126) U/L Total Protein (6.3-8.3) g/dL Albumin (3.5-5.0) g/dL Globulin (2.2-3.9) gm/dL Albumin/Globulin Ratio (1.0-2.1) Arterial Blood Potassium (3.6-5.2) mmol/L 01/21/17 Range/Units 18:43 WBC (4.8-10.8) K/uL RBC (3.80-5.20) Mil/uL Hgb (11.0-16.0) g/dL Hct (34.0-47.0) % MCV (81.0-99.0) fL MCH (27.0-31.0) pg MCHC (33.0-37.0) g/dL RDW (11.5-14.5) % Plt Count (130-400) K/uL MPV (7.2-11.7) fL Neut % (Auto) (50.0-75.0) % Lymph % (Auto) (20.0-40.0) % Alcorn % (Auto) (0.0-10.0) % Eos % (Auto) (0.0-4.0) % Baso % (Auto) (0.0-2.0) % Neut # (1.8-7.0) K/uL Lymph # (1.0-4.3) K/uL Alcorn # (0.0-0.8) K/uL Eos # (0.0-0.7) K/uL Baso # (0.0-0.2) K/uL Puncture Site pCO2 (35-45) mm/Hg pO2 (80-100) mm/Hg HCO3 (21-28) mmol/L ABG pH (7.35-7.45) ABG Total CO2 (22-28) mmol/L ABG O2 Saturation (95-98) % ABG Base Excess (-2.0-3.0) mmol/L ABG Hemoglobin (11.7-17.4) g/dL ABG Carboxyhemoglobin (0.5-1.5) % POC ABG HHb (Measured) (0.0-5.0) % ABG Methemoglobin (0.0-3.0) % Singh Test ABG Potassium (3.6-5.2) mmol/L A-a O2 Difference mm/Hg Respiratory Index Hgb O2 Saturation (95.0-98.0) % Glucose (65-105) mg/dl Lactate (0.7-2.1) mmol/L Vent Mode Mechanical Rate FiO2 % Tidal Volume PEEP Pressure Support Sodium (132-148) mmol/L Potassium (3.6-5.2) mmol/L Chloride (98-107) mmol/L Carbon Dioxide (22-30) mmol/L Anion Gap (10-20) BUN (7-17) mg/dL Creatinine (0.7-1.2) mg/dL Est GFR ( Amer) Est GFR (Non-Af Amer) POC Glucose (mg/dL) 280 H (65-110) mg/dL Random Glucose (65-105) mg/dL Calcium (8.6-10.4) mg/dl Phosphorus (2.5-4.5) mg/dL Magnesium (1.6-2.3) mg/dL Total Bilirubin (0.2-1.3) mg/dL AST (14-36) U/L ALT (9-52) U/L Alkaline Phosphatase (38-126) U/L Total Protein (6.3-8.3) g/dL Albumin (3.5-5.0) g/dL Globulin (2.2-3.9) gm/dL Albumin/Globulin Ratio (1.0-2.1) Arterial Blood Potassium (3.6-5.2) mmol/L Laboratory Results - last 24 hr 01/21/17 01/21/17 01/22/17 18:43 23:38 05:14 WBC RBC Hgb Hct MCV MCH MCHC RDW Plt Count MPV Neut % (Auto) Lymph % (Auto) Alcorn % (Auto) Eos % (Auto) Baso % (Auto) Neut # Lymph # Alcorn # Eos # Baso # Puncture Site pCO2 pO2 HCO3 ABG pH ABG Total CO2 ABG O2 Saturation ABG Base Excess ABG Hemoglobin ABG Carboxyhemoglobin POC ABG HHb (Measured) ABG Methemoglobin Singh Test ABG Potassium A-a O2 Difference Respiratory Index Hgb O2 Saturation Glucose Lactate Vent Mode Mechanical Rate FiO2 Tidal Volume PEEP Pressure Support Sodium Potassium Chloride Carbon Dioxide Anion Gap BUN Creatinine Est GFR ( Amer) Est GFR (Non-Af Amer) POC Glucose (mg/dL) 280 H 331 H 320 H Random Glucose Calcium Phosphorus Magnesium Total Bilirubin AST ALT Alkaline Phosphatase Total Protein Albumin Globulin Albumin/Globulin Ratio Arterial Blood Potassium 01/22/17 01/22/17 01/22/17 05:31 06:00 06:00 WBC 4.1 L RBC 3.59 L Hgb 9.6 L Hct 29.1 L MCV 81.0 MCH 26.7 L MCHC 32.9 L RDW 15.3 H Plt Count 194 MPV 9.0 Neut % (Auto) 68.2 Lymph % (Auto) 20.9 Alcorn % (Auto) 10.0 Eos % (Auto) 0.1 Baso % (Auto) 0.8 Neut # 2.8 Lymph # 0.9 L Alcorn # 0.4 Eos # 0.0 Baso # 0.0 Puncture Site R b pCO2 29 L pO2 166 H HCO3 24.5 ABG pH 7.49 H ABG Total CO2 23.0 ABG O2 Saturation 99.2 H ABG Base Excess -0.6 ABG Hemoglobin 9.8 L ABG Carboxyhemoglobin 1.5 POC ABG HHb (Measured) 0.8 ABG Methemoglobin 1.1 Singh Test Na ABG Potassium A-a O2 Difference 83.0 Respiratory Index 0.5 Hgb O2 Saturation 96.7 Glucose Lactate Vent Mode Prvc Mechanical Rate 14 FiO2 40.0 Tidal Volume 450 PEEP 5 Pressure Support Sodium 137 Potassium 4.8 Chloride 108 H Carbon Dioxide 26 Anion Gap 8 L BUN 44 H Creatinine 0.6 L Est GFR ( Amer) > 60 Est GFR (Non-Af Amer) > 60 POC Glucose (mg/dL) Random Glucose 407 H* Calcium 7.7 L Phosphorus 3.5 Magnesium 2.2 Total Bilirubin 0.3 AST 17 ALT 43 Alkaline Phosphatase 152 H Total Protein 7.1 Albumin 2.9 L Globulin 4.1 H Albumin/Globulin Ratio 0.7 L Arterial Blood Potassium 01/22/17 01/22/17 01/22/17 11:39 11:57 14:59 WBC RBC Hgb Hct MCV MCH MCHC RDW Plt Count MPV Neut % (Auto) Lymph % (Auto) Alcorn % (Auto) Eos % (Auto) Baso % (Auto) Neut # Lymph # Alcorn # Eos # Baso # Puncture Site pCO2 pO2 HCO3 ABG pH ABG Total CO2 ABG O2 Saturation ABG Base Excess ABG Hemoglobin ABG Carboxyhemoglobin POC ABG HHb (Measured) ABG Methemoglobin Singh Test ABG Potassium A-a O2 Difference Respiratory Index Hgb O2 Saturation Glucose Lactate Vent Mode Mechanical Rate FiO2 Tidal Volume PEEP Pressure Support Sodium Potassium Chloride Carbon Dioxide Anion Gap BUN Creatinine Est GFR ( Amer) Est GFR (Non-Af Amer) POC Glucose (mg/dL) 269 H 236 H 118 H Random Glucose Calcium Phosphorus Magnesium Total Bilirubin AST ALT Alkaline Phosphatase Total Protein Albumin Globulin Albumin/Globulin Ratio Arterial Blood Potassium 01/22/17 16:30 WBC RBC Hgb Hct MCV MCH MCHC RDW Plt Count MPV Neut % (Auto) Lymph % (Auto) Alcorn % (Auto) Eos % (Auto) Baso % (Auto) Neut # Lymph # Alcorn # Eos # Baso # Puncture Site Lba pCO2 34 L pO2 99 HCO3 25.6 ABG pH 7.46 H ABG Total CO2 25.2 ABG O2 Saturation 99.2 H ABG Base Excess 0.8 ABG Hemoglobin ABG Carboxyhemoglobin POC ABG HHb (Measured) ABG Methemoglobin Singh Test Pos ABG Potassium 4.1 A-a O2 Difference 72.0 Respiratory Index 0.7 Hgb O2 Saturation Glucose 91 Lactate 1.2 Vent Mode Cpap Mechanical Rate 23 FiO2 30.0 Tidal Volume 450 PEEP 5 Pressure Support 14 Sodium 142.0 Potassium Chloride 114.0 H Carbon Dioxide Anion Gap BUN Creatinine Est GFR ( Amer) Est GFR (Non-Af Amer) POC Glucose (mg/dL) Random Glucose Calcium Phosphorus Magnesium Total Bilirubin AST ALT Alkaline Phosphatase Total Protein Albumin Globulin Albumin/Globulin Ratio Arterial Blood Potassium 4.1 Fingerstick Blood Sugar Results: 118 Critical Care Progress Note - Ventilator Checklist Daily Sedation Vacation: Yes Daily Assessment of Readiness to Wean: Yes Daily Spontaneous Breathing Trial: Yes PUD Prophalyxis: Yes DVT Prophylaxis: Yes Oral Care with Chlorhexidine Gluconate {CHG}: Yes Assessment/Plan - Assessment and Plan (Free Text) Plan: Patient admitted to ICU for respiratory failure: Hypoxic and hypercapneic respiratory failure:tolerated CPAP, and extubated, post extubation, good cough reflex, continue aerosol mask, and pulmonary toilet -Chronic systolic heart failure/CAd/A-fib (rate controlled): continue negative balance, off sedation BP good, continue antiplatelets, av radha chapin and acei -h/o seizures: on keppra, check level -Urine/GNR, awaiting sesitivity, d/c [place] -continue dvt/pud pppx: lovenox/protonix Patient remains stable post extubation pt/ot speach and swallow in AM cc time 40 minutes - Date & Time Date: 01/22/17 Time: 17:50
[2017-01-22] MEDS ORDERED: Dextrose 5%/Lactated Ringer's 1,000 ML IV SCH (18:15)
[2017-01-22] MEDS ORDERED: Dextrose 5%/0.9% NS 1,000 ML IV ONE (18:26)
[2017-01-22 19:16] LABS: ABG ALLEN TEST POS; ARTERIAL BLOOD GAS HCO3 24.2 mmol/L (21-28); ARTERIAL BLOOD GAS HEMOGLOBIN 9.8 g/dL (11.7-17.4); ARTERIAL BLOOD GAS O2 SAT 96.2 % (95-98); ARTERIAL BLOOD GAS PCO2 36 mm/Hg (35-45); ARTERIAL BLOOD GAS PH 7.42 (7.35-7.45); ARTERIAL BLOOD GAS PO2 59 mm/Hg (80-100); ARTERIAL BLOOD GAS TCO2 24.5 mmol/L (22-28)
--- NOTE | 2017-01-22 23:47 | CP.PCM.PN ---
Subjective - Date & Time of Evaluation Date of Evaluation: 01/22/17 Time of Evaluation: 19:00 - Subjective Subjective: Pt seen & examined at bedside, afberile on CPAP for last 7 hours.No apparent disctress Objective - Vital Signs/Intake and Output Vital Signs (last 24 hours): Temp Pulse Resp BP Pulse Ox 98.8 F 123 H 18 141/68 100 01/22/17 20:00 01/22/17 23:00 01/22/17 23:00 01/22/17 22:34 01/22/17 23:00 Intake and Output: 01/22/17 01/23/17 18:59 06:59 Intake Total 274.6 188 Output Total 355 Balance -80.4 188 - Medications Medications: Current Medications Acetaminophen (Tylenol 325mg Tab) 650 mg PO Q6 PRN PRN Reason: Pain, moderate (4-7) Last Admin: 01/18/17 15:23 Dose: 650 mg Aspirin (Ecotrin) 81 mg PO DAILY [facility] Last Admin: 01/22/17 09:28 Dose: 81 mg Calcium Carbonate (Oscal) 500 mg PO BID [facility] Last Admin: 01/22/17 18:50 Dose: 500 mg Diltiazem HCl (Cardizem) 30 mg PO QID [facility] Last Admin: 01/22/17 21:01 Dose: 30 mg Enalapril Maleate (Vasotec) 2.5 mg PO DAILY [facility] Last Admin: 01/22/17 09:30 Dose: Not Given Enoxaparin Sodium (Lovenox) 40 mg SC DAILY [facility] Last Admin: 01/22/17 09:27 Dose: 40 mg Folic Acid (Folic Acid) 1 mg PO DAILY [facility] Last Admin: 01/22/17 09:28 Dose: 1 mg Azithromycin 500 mg/ Sodium (Chloride) 250 mls @ 250 mls/hr IVPB DAILY [facility] Last Admin: 01/22/17 09:31 Dose: 250 mls/hr Aztreonam 2 gm/ Sodium (Chloride) 100 mls @ 200 mls/hr IVPB Q8H [facility] Last Admin: 01/22/17 18:55 Dose: 200 mls/hr Dextrose/Sodium Chloride (Dextrose 5%/0.9% Ns 1000 Ml) 1,000 mls @ 42 mls/hr IV .[id number] ONE Stop: 01/23/17 18:14 Last Admin: 01/22/17 18:44 Dose: 42 mls/hr Diltiazem HCl 125 mg/ Dextrose 125 mls @ 5 mls/hr IV .Q24H SCOTTY; 5 MG/HR PRN Reason: Protocol Insulin Aspart (Novolog) 0 unit SC Q4H SCOTTY PRN Reason: Protocol Last Admin: 01/22/17 23:44 Dose: Not Given Insulin Glargine (Lantus) 15 unit SC BIDAC [facility] Last Admin: 01/22/17 17:04 Dose: Not Given Ipratropium Nemacolin (Atrovent) 0.5 mg IH RQ6 PRN PRN Reason: Shortness of Breath Levetiracetam (Keppra) 750 mg PO BID [facility] Last Admin: 01/22/17 18:45 Dose: 750 mg Levothyroxine Sodium (Synthroid) 25 mcg PO DAILY@0630 [facility] Last Admin: 01/22/17 05:33 Dose: 25 mcg Magnesium Hydroxide (Milk Of Magnesia) 30 ml PO DAILY PRN PRN Reason: Constipation Last Admin: 01/22/17 09:27 Dose: 30 ml Nystatin (Nystop Topical Powder) 1 applic TOP BID [facility] Last Admin: 01/22/17 21:01 Dose: 1 applic Pantoprazole Sodium (Protonix Inj) 40 mg IVP DAILY [facility] Last Admin: 01/22/17 09:27 Dose: 40 mg Rosuvastatin Calcium (Crestor) 20 mg PO HS [facility] Last Admin: 01/22/17 21:01 Dose: 20 mg Saccharomyces Boulardii (Florastor) 250 mg PO BID [facility] Last Admin: 01/22/17 18:44 Dose: 250 mg Spironolactone (Aldactone) 12.5 mg PO BID [facility] Last Admin: 01/22/17 18:50 Dose: 12.5 mg - Labs Labs: 01/22/17 06:00 01/22/17 06:00 Assessment and Plan (1) Respiratory failure Status: Acute (2) Seizure disorder Status: Acute (3) Uncontrolled blood glucose Status: Acute (4) Systolic CHF Status: Acute
[2017-01-23] MEDS: Aztreonam 2 GM in Sodium Chloride 0.9% 100 ML IVPB SCH ×3 (03:06→18:01)
[2017-01-23] MEDS: (Novolog) Insulin Aspart, Recombinant 100 u/ml 10 ml vial SC SCH ×6 (03:07→22:29)
[2017-01-23] MEDS: Levothyroxine 25 MCG TAB PO SCH (05:41)
[2017-01-23 06:39] LABS: BASO # 0.1 K/uL (0.0-0.2); BASO % 1.7 % (0.0-2.0); EOS # 0.1 K/uL (0.0-0.7); EOS % 0.7 % (0.0-4.0); HEMOGLOBIN 10.5 g/dL (11.0-16.0); LYMPH # 1.4 K/uL (1.0-4.3); LYMPH % 19.1 % (20.0-40.0); MEAN CELL VOLUME 81.4 fL (81.0-99.0); MEAN CORPUSCULAR HEMOGLOBIN 26.9 pg (27.0-31.0); MEAN PLATELET VOLUME 8.5 fL (7.2-11.7); MONO # 0.5 K/uL (0.0-0.8); MONO % 7.2 % (0.0-10.0); NEUT # 5.3 K/uL (1.8-7.0); NEUT % 71.3 % (50.0-75.0); RBC 3.92 Mil/uL (3.80-5.20); RED CELL DISTRIBUTION WIDTH 15.3 % (11.5-14.5); WHITE BLOOD COUNT 7.5 K/uL (4.8-10.8)
[2017-01-23 07:05] LABS: ALBUMIN 3.5 g/dL (3.5-5.0); ALT/SGPT 44 U/L (9-52); AST/SGOT 21 U/L (14-36); BLOOD UREA NITROGEN 35 mg/dL (7-17); CALCIUM 8.1 mg/dl (8.6-10.4); GFR AFRICAN-AMERICAN > 60; GFR NON-AFRICAN AMERICAN > 60
[2017-01-23] MEDS: (Lantus) Insulin Glargine, Recombinant SC SCH ×2 (08:00→17:36)
--- NOTE | 2017-01-23 09:57 | CP.CCUPN ---
CCU Subjective - Physician Review Events Since Last Encounter (Free Text): 01/23/17 09:57 81-year-old female with history of anxiety atrial fibrillation depression seizure disorder hypothyroidism hypertension multiple falls, kyphoscoliosis contractions Patient intubated. Currently extubated. Tachycardia with a rapid A. fib noted. Patient is coughing up with a thick yellow mucus production. Currently on Cardizem drip. Very poor eating. IV fluid dextrose is stranding. Patient is awake and responding, but in mild respiratory distress noted Medications reviewed On antibiotic. Cardizem drip Vital signs reviewed No neck vein distention noted Chest good air entry bilaterally, no wheezing or rales noted CVS regular heart sound, no murmur noted Abdomen soft and Extremities very contracted, kyphosis noted, and edema noted [employer] alert awake but not responding well verbally Labs reviewed Chest x-ray is clear Assessment and recommendation: 81-year-old female with a history of anxiety, atrial fibrillation, depression, seizure disorder, hypertension, hypertension. Currently patient is still having some respiratory distress. We'll watch her. Aspiration precautions. Poor intake. Patient is at high risk for aspiration pneumonia. CCU Objective - Vital Signs / Intake & Output Vital Signs (Last 4 hours): Vital Signs Temp Pulse Resp BP Pulse Ox 01/23/17 08:00 98.4 F 01/23/17 07:00 103 H 31 H 100 01/23/17 06:34 113 H 27 H 156/75 H 100 01/23/17 06:00 113 H 17 100 Intake and Output (Last 8hrs): Intake & Output 01/22/17 01/23/17 01/23/17 22:59 06:59 14:59 Intake Total 146 556 Output Total 265 520 Balance -119 36 Weight 102 lb Intake: IV 5 Intake, IV Amount 126 501 Left Medial Port Internal 126 436 Jugular Left Proximal Port 0 65 Internal Jugular Oral 20 50 Output: Urine 265 520 Urine, Voided 265 520 - Physical Exam Head: Positive for: Atraumatic, Normocephalic Pupils: Positive for: PERRL Extroacular Muscles: Positive for: EOMI Mouth: Positive for: Moist Mucous Membranes, Other (intubated) Respiratory/Chest: Positive for: Clear to Auscultation, Decreased Breath Sounds , Other (intubated). Negative for: Respiratory Distress, Accessory Muscle Use Cardiovascular: Positive for: Regular Rate and Rhythm, Murmurs, Normal S1, S2 Abdomen: Negative for: Tenderness, Distention, Peritoneal Signs Upper Extremity: Positive for: Normal Inspection. Negative for: Edema Lower Extremity: Positive for: Normal Inspection. Negative for: Edema Neurological: Positive for: Other (intubated) Skin: Positive for: Warm, Dry Psychiatric: Positive for: Alert, Other (intubated) - Medications Active Medications: Active Medications Generic Name Dose Route Start Last Admin Trade Name Freq PRN Reason Stop Dose Admin Acetaminophen 650 mg 01/17/17 21:49 01/18/17 15:23 Tylenol 325mg Tab PO 650 mg Q6 PRN Administration Pain, moderate (4-7) Aspirin 81 mg 01/18/17 10:00 01/22/17 09:28 Ecotrin PO 81 mg DAILY [facility] Administration Calcium Carbonate 500 mg 01/18/17 10:00 01/22/17 18:50 Oscal PO 500 mg BID [facility] Administration Diltiazem HCl 30 mg 01/17/17 22:00 01/22/17 21:01 Cardizem PO 30 mg QID [facility] Administration Enalapril Maleate 2.5 mg 01/21/17 10:00 01/22/17 09:30 Vasotec PO Not Given DAILY [facility] Enoxaparin Sodium 40 mg 01/18/17 10:00 01/22/17 09:27 Lovenox SC 40 mg DAILY [facility] Administration Folic Acid 1 mg 01/18/17 10:00 01/22/17 09:28 Folic Acid PO 1 mg DAILY [facility] Administration Aztreonam 2 gm/ Sodium 100 mls @ 200 mls/hr 01/18/17 19:00 01/23/17 03:06 Chloride IVPB 200 mls/hr Q8H [facility] Administration Dextrose/Sodium Chloride 1,000 mls @ 42 mls/hr 01/22/17 18:26 01/22/17 18:44 Dextrose 5%/0.9% Ns 1000 Ml IV 01/23/17 18:14 42 mls/hr .[id number] ONE Administration Diltiazem HCl 125 mg/ Dextrose 125 mls @ 5 mls/hr 01/22/17 23:15 01/23/17 01: 00 IV 10 mg/hr .Q24H [facility] 10 mls/hr Protocol Titration 5 MG/HR Azithromycin 500 mg/ Sodium 250 mls @ 250 mls/hr 01/23/17 10:00 Chloride IVPB DAILY [facility] Insulin Aspart 0 unit 01/22/17 10:30 01/23/17 05:55 Novolog SC Not Given Q4H [facility] Protocol Insulin Glargine 15 unit 01/22/17 10:20 01/22/17 17:04 Lantus SC Not Given BIDAC [facility] Ipratropium Pavo 0.5 mg 01/18/17 15:39 Atrovent IH RQ6 PRN Shortness of Breath Levetiracetam 750 mg 01/18/17 10:00 01/22/17 18:45 Keppra PO 750 mg BID [facility] Administration Levothyroxine Sodium 25 mcg 01/18/17 06:30 01/23/17 05:41 Synthroid PO 25 mcg DAILY@0630 [facility] Administration Magnesium Hydroxide 30 ml 01/17/17 21:49 01/22/17 09:27 Milk Of Magnesia PO 30 ml DAILY PRN Administration Constipation Nystatin 1 applic 01/22/17 18:00 01/22/17 21:01 Nystop Topical Powder TOP 1 applic BID [facility] Administration Pantoprazole Sodium 40 mg 01/19/17 10:00 01/22/17 09:27 Protonix Inj IVP 40 mg DAILY [facility] Administration Rosuvastatin Calcium 20 mg 01/18/17 22:00 01/22/17 21:01 Crestor PO 20 mg HS [facility] Administration Saccharomyces Boulardii 250 mg 01/18/17 18:00 01/22/17 18:44 Florastor PO 250 mg BID [facility] Administration Spironolactone 12.5 mg 01/20/17 18:00 01/22/17 18:50 Aldactone PO 12.5 mg BID [facility] Administration - Patient Studies Lab Studies: Microbiology Studies 01/18/17 17:48 Urine Culture - Final Urine,Catheterized Escherichia Coli Yeast Species 01/17/17 20:30 Blood Culture - Final Blood-Venous NO GROWTH AFTER 5 DAYS Gram Stain - Final TEST NOT PERFORMED 01/17/17 20:00 Blood Culture - Final Blood-Venous NO GROWTH AFTER 5 DAYS Gram Stain - Final TEST NOT PERFORMED Lab Studies 01/23/17 01/23/17 01/23/17 Range/Units 06:28 06:28 05:24 WBC 7.5 D (4.8-10.8) K/uL RBC 3.92 (3.80-5.20) Mil/uL Hgb 10.5 L (11.0-16.0) g/dL Hct 31.9 L (34.0-47.0) % MCV 81.4 (81.0-99.0) fL MCH 26.9 L (27.0-31.0) pg MCHC 33.0 (33.0-37.0) g/dL RDW 15.3 H (11.5-14.5) % Plt Count 327 D (130-400) K/uL MPV 8.5 (7.2-11.7) fL Neut % (Auto) 71.3 (50.0-75.0) % Lymph % (Auto) 19.1 L (20.0-40.0) % [place] % (Auto) 7.2 (0.0-10.0) % Eos % (Auto) 0.7 (0.0-4.0) % Baso % (Auto) 1.7 (0.0-2.0) % Neut # 5.3 (1.8-7.0) K/uL Lymph # 1.4 (1.0-4.3) K/uL [place] # 0.5 (0.0-0.8) K/uL Eos # 0.1 (0.0-0.7) K/uL Baso # 0.1 (0.0-0.2) K/uL Puncture Site pCO2 (35-45) mm/Hg pO2 (80-100) mm/Hg HCO3 (21-28) mmol/L ABG pH (7.35-7.45) ABG Total CO2 (22-28) mmol/L ABG O2 Saturation (95-98) % ABG Base Excess (-2.0-3.0) mmol/L ABG Hemoglobin (11.7-17.4) g/dL ABG Carboxyhemoglobin (0.5-1.5) % POC ABG HHb (Measured) (0.0-5.0) % ABG Methemoglobin (0.0-3.0) % Singh Test ABG Potassium (3.6-5.2) mmol/L A-a O2 Difference mm/Hg Respiratory Index Hgb O2 Saturation (95.0-98.0) % Sodium 141 (132-148) mmol/l Chloride 109 H (98-107) mmol/L Glucose (65-105) mg/dl Lactate (0.7-2.1) mmol/L Liter Flow Vent Mode Mechanical Rate FiO2 % Tidal Volume PEEP Pressure Support Potassium 4.0 (3.6-5.2) mmol/L Carbon Dioxide 25 (22-30) mmol/L Anion Gap 11 (10-20) BUN 35 H (7-17) mg/dL Creatinine 0.5 L (0.7-1.2) mg/dL Est GFR ( Amer) > 60 Est GFR (Non-Af Amer) > 60 POC Glucose (mg/dL) 149 H (65-110) mg/dL Random Glucose 154 H (65-105) mg/dL Calcium 8.1 L (8.6-10.4) mg/dl Phosphorus 3.3 (2.5-4.5) mg/dL Magnesium 2.0 (1.6-2.3) mg/dL Total Bilirubin 0.3 (0.2-1.3) mg/dL AST 21 (14-36) U/L ALT 44 (9-52) U/L Alkaline Phosphatase 137 H (38-126) U/L Total Protein 6.9 (6.3-8.3) g/dL Albumin 3.5 D (3.5-5.0) g/dL Globulin 3.4 (2.2-3.9) gm/dL Albumin/Globulin Ratio 1.0 (1.0-2.1) Arterial Blood Potassium (3.6-5.2) mmol/L 01/23/17 01/22/17 01/22/17 Range/Units 01:59 23:44 19:08 WBC (4.8-10.8) K/uL RBC (3.80-5.20) Mil/uL Hgb (11.0-16.0) g/dL Hct (34.0-47.0) % MCV (81.0-99.0) fL MCH (27.0-31.0) pg MCHC (33.0-37.0) g/dL RDW (11.5-14.5) % Plt Count (130-400) K/uL MPV (7.2-11.7) fL Neut % (Auto) (50.0-75.0) % Lymph % (Auto) (20.0-40.0) % [place] % (Auto) (0.0-10.0) % Eos % (Auto) (0.0-4.0) % Baso % (Auto) (0.0-2.0) % Neut # (1.8-7.0) K/uL Lymph # (1.0-4.3) K/uL [place] # (0.0-0.8) K/uL Eos # (0.0-0.7) K/uL Baso # (0.0-0.2) K/uL Puncture Site Lba pCO2 36 (35-45) mm/Hg pO2 59 L (80-100) mm/Hg HCO3 24.2 (21-28) mmol/L ABG pH 7.42 (7.35-7.45) ABG Total CO2 24.5 (22-28) mmol/L ABG O2 Saturation 96.2 (95-98) % ABG Base Excess -0.8 (-2.0-3.0) mmol/L ABG Hemoglobin 9.8 L (11.7-17.4) g/dL ABG Carboxyhemoglobin 2.4 H (0.5-1.5) % POC ABG HHb (Measured) 3.7 (0.0-5.0) % ABG Methemoglobin 1.0 (0.0-3.0) % Singh Test Pos ABG Potassium (3.6-5.2) mmol/L A-a O2 Difference 124.0 mm/Hg Respiratory Index 2.1 Hgb O2 Saturation 92.8 L (95.0-98.0) % Sodium (132-148) mmol/l Chloride (98-107) mmol/L Glucose (65-105) mg/dl Lactate (0.7-2.1) mmol/L Liter Flow 3.0 Vent Mode Mechanical Rate FiO2 32.0 % Tidal Volume PEEP Pressure Support Potassium (3.6-5.2) mmol/L Carbon Dioxide (22-30) mmol/L Anion Gap (10-20) BUN (7-17) mg/dL Creatinine (0.7-1.2) mg/dL Est GFR ( Amer) Est GFR (Non-Af Amer) POC Glucose (mg/dL) 132 H 97 (65-110) mg/dL Random Glucose (65-105) mg/dL Calcium (8.6-10.4) mg/dl Phosphorus (2.5-4.5) mg/dL Magnesium (1.6-2.3) mg/dL Total Bilirubin (0.2-1.3) mg/dL AST (14-36) U/L ALT (9-52) U/L Alkaline Phosphatase (38-126) U/L Total Protein (6.3-8.3) g/dL Albumin (3.5-5.0) g/dL Globulin (2.2-3.9) gm/dL Albumin/Globulin Ratio (1.0-2.1) Arterial Blood Potassium (3.6-5.2) mmol/L 01/22/17 01/22/17 01/22/17 Range/Units 17:58 16:30 14:59 WBC (4.8-10.8) K/uL RBC (3.80-5.20) Mil/uL Hgb (11.0-16.0) g/dL Hct (34.0-47.0) % MCV (81.0-99.0) fL MCH (27.0-31.0) pg MCHC (33.0-37.0) g/dL RDW (11.5-14.5) % Plt Count (130-400) K/uL MPV (7.2-11.7) fL Neut % (Auto) (50.0-75.0) % Lymph % (Auto) (20.0-40.0) % [place] % (Auto) (0.0-10.0) % Eos % (Auto) (0.0-4.0) % Baso % (Auto) (0.0-2.0) % Neut # (1.8-7.0) K/uL Lymph # (1.0-4.3) K/uL [place] # (0.0-0.8) K/uL Eos # (0.0-0.7) K/uL Baso # (0.0-0.2) K/uL Puncture Site Lba pCO2 34 L (35-45) mm/Hg pO2 99 (80-100) mm/Hg HCO3 25.6 (21-28) mmol/L ABG pH 7.46 H (7.35-7.45) ABG Total CO2 25.2 (22-28) mmol/L ABG O2 Saturation 99.2 H (95-98) % ABG Base Excess 0.8 (-2.0-3.0) mmol/L ABG Hemoglobin (11.7-17.4) g/dL ABG Carboxyhemoglobin (0.5-1.5) % POC ABG HHb (Measured) (0.0-5.0) % ABG Methemoglobin (0.0-3.0) % Singh Test Pos ABG Potassium 4.1 (3.6-5.2) mmol/L A-a O2 Difference 72.0 mm/Hg Respiratory Index 0.7 Hgb O2 Saturation (95.0-98.0) % Sodium 142.0 (132-148) mmol/l Chloride 114.0 H (98-107) mmol/L Glucose 91 (65-105) mg/dl Lactate 1.2 (0.7-2.1) mmol/L Liter Flow Vent Mode Cpap Mechanical Rate 23 FiO2 30.0 % Tidal Volume 450 PEEP 5 Pressure Support 14 Potassium (3.6-5.2) mmol/L Carbon Dioxide (22-30) mmol/L Anion Gap (10-20) BUN (7-17) mg/dL Creatinine (0.7-1.2) mg/dL Est GFR ( Amer) Est GFR (Non-Af Amer) POC Glucose (mg/dL) 75 118 H (65-110) mg/dL Random Glucose (65-105) mg/dL Calcium (8.6-10.4) mg/dl Phosphorus (2.5-4.5) mg/dL Magnesium (1.6-2.3) mg/dL Total Bilirubin (0.2-1.3) mg/dL AST (14-36) U/L ALT (9-52) U/L Alkaline Phosphatase (38-126) U/L Total Protein (6.3-8.3) g/dL Albumin (3.5-5.0) g/dL Globulin (2.2-3.9) gm/dL Albumin/Globulin Ratio (1.0-2.1) Arterial Blood Potassium 4.1 (3.6-5.2) mmol/L 01/22/17 01/22/17 Range/Units 11:57 11:39 WBC (4.8-10.8) K/uL RBC (3.80-5.20) Mil/uL Hgb (11.0-16.0) g/dL Hct (34.0-47.0) % MCV (81.0-99.0) fL MCH (27.0-31.0) pg MCHC (33.0-37.0) g/dL RDW (11.5-14.5) % Plt Count (130-400) K/uL MPV (7.2-11.7) fL Neut % (Auto) (50.0-75.0) % Lymph % (Auto) (20.0-40.0) % [place] % (Auto) (0.0-10.0) % Eos % (Auto) (0.0-4.0) % Baso % (Auto) (0.0-2.0) % Neut # (1.8-7.0) K/uL Lymph # (1.0-4.3) K/uL [place] # (0.0-0.8) K/uL Eos # (0.0-0.7) K/uL Baso # (0.0-0.2) K/uL Puncture Site pCO2 (35-45) mm/Hg pO2 (80-100) mm/Hg HCO3 (21-28) mmol/L ABG pH (7.35-7.45) ABG Total CO2 (22-28) mmol/L ABG O2 Saturation (95-98) % ABG Base Excess (-2.0-3.0) mmol/L ABG Hemoglobin (11.7-17.4) g/dL ABG Carboxyhemoglobin (0.5-1.5) % POC ABG HHb (Measured) (0.0-5.0) % ABG Methemoglobin (0.0-3.0) % Singh Test ABG Potassium (3.6-5.2) mmol/L A-a O2 Difference mm/Hg Respiratory Index Hgb O2 Saturation (95.0-98.0) % Sodium (132-148) mmol/l Chloride (98-107) mmol/L Glucose (65-105) mg/dl Lactate (0.7-2.1) mmol/L Liter Flow Vent Mode Mechanical Rate FiO2 % Tidal Volume PEEP Pressure Support Potassium (3.6-5.2) mmol/L Carbon Dioxide (22-30) mmol/L Anion Gap (10-20) BUN (7-17) mg/dL Creatinine (0.7-1.2) mg/dL Est GFR ( Amer) Est GFR (Non-Af Amer) POC Glucose (mg/dL) 236 H 269 H (65-110) mg/dL Random Glucose (65-105) mg/dL Calcium (8.6-10.4) mg/dl Phosphorus (2.5-4.5) mg/dL Magnesium (1.6-2.3) mg/dL Total Bilirubin (0.2-1.3) mg/dL AST (14-36) U/L ALT (9-52) U/L Alkaline Phosphatase (38-126) U/L Total Protein (6.3-8.3) g/dL Albumin (3.5-5.0) g/dL Globulin (2.2-3.9) gm/dL Albumin/Globulin Ratio (1.0-2.1) Arterial Blood Potassium (3.6-5.2) mmol/L Laboratory Results - last 24 hr 01/22/17 01/22/17 01/22/17 11:39 11:57 14:59 WBC RBC Hgb Hct MCV MCH MCHC RDW Plt Count MPV Neut % (Auto) Lymph % (Auto) [place] % (Auto) Eos % (Auto) Baso % (Auto) Neut # Lymph # [place] # Eos # Baso # Puncture Site pCO2 pO2 HCO3 ABG pH ABG Total CO2 ABG O2 Saturation ABG Base Excess ABG Hemoglobin ABG Carboxyhemoglobin POC ABG HHb (Measured) ABG Methemoglobin Singh Test ABG Potassium A-a O2 Difference Respiratory Index Hgb O2 Saturation Sodium Chloride Glucose Lactate Liter Flow Vent Mode Mechanical Rate FiO2 Tidal Volume PEEP Pressure Support Potassium Carbon Dioxide Anion Gap BUN Creatinine Est GFR ( Amer) Est GFR (Non-Af Amer) POC Glucose (mg/dL) 269 H 236 H 118 H Random Glucose Calcium Phosphorus Magnesium Total Bilirubin AST ALT Alkaline Phosphatase Total Protein Albumin Globulin Albumin/Globulin Ratio Arterial Blood Potassium 12/16/17 12/16/17 12/16/17 16:30 17:58 19:08 WBC RBC Hgb Hct MCV MCH MCHC RDW Plt Count MPV Neut % (Auto) Lymph % (Auto) [place] % (Auto) Eos % (Auto) Baso % (Auto) Neut # Lymph # [place] # Eos # Baso # Puncture Site Lba Lba pCO2 34 L 36 pO2 99 59 L HCO3 25.6 24.2 ABG pH 7.46 H 7.42 ABG Total CO2 25.2 24.5 ABG O2 Saturation 99.2 H 96.2 ABG Base Excess 0.8 -0.8 ABG Hemoglobin 9.8 L ABG Carboxyhemoglobin 2.4 H POC ABG HHb (Measured) 3.7 ABG Methemoglobin 1.0 Signh Test Pos Pos ABG Potassium 4.1 A-a O2 Difference 72.0 124.0 Respiratory Index 0.7 2.1 Hgb O2 Saturation 92.8 L Sodium 142.0 Chloride 114.0 H Glucose 91 Lactate 1.2 Liter Flow 3.0 Vent Mode Cpap Mechanical Rate 23 FiO2 30.0 32.0 Tidal Volume 450 PEEP 5 Pressure Support 14 Potassium Carbon Dioxide Anion Gap BUN Creatinine Est GFR ( Amer) Est GFR (Non-Af Amer) POC Glucose (mg/dL) 75 Random Glucose Calcium Phosphorus Magnesium Total Bilirubin AST ALT Alkaline Phosphatase Total Protein Albumin Globulin Albumin/Globulin Ratio Arterial Blood Potassium 4.1 01/22/17 01/23/17 01/23/17 23:44 01:59 05:24 WBC RBC Hgb Hct MCV MCH MCHC RDW Plt Count MPV Neut % (Auto) Lymph % (Auto) [place] % (Auto) Eos % (Auto) Baso % (Auto) Neut # Lymph # [place] # Eos # Baso # Puncture Site pCO2 pO2 HCO3 ABG pH ABG Total CO2 ABG O2 Saturation ABG Base Excess ABG Hemoglobin ABG Carboxyhemoglobin POC ABG HHb (Measured) ABG Methemoglobin Singh Test ABG Potassium A-a O2 Difference Respiratory Index Hgb O2 Saturation Sodium Chloride Glucose Lactate Liter Flow Vent Mode Mechanical Rate FiO2 Tidal Volume PEEP Pressure Support Potassium Carbon Dioxide Anion Gap BUN Creatinine Est GFR ( Amer) Est GFR (Non-Af Amer) POC Glucose (mg/dL) 97 132 H 149 H Random Glucose Calcium Phosphorus Magnesium Total Bilirubin AST ALT Alkaline Phosphatase Total Protein Albumin Globulin Albumin/Globulin Ratio Arterial Blood Potassium 01/23/17 01/23/17 06:28 06:28 WBC 7.5 D RBC 3.92 Hgb 10.5 L Hct 31.9 L MCV 81.4 MCH 26.9 L MCHC 33.0 RDW 15.3 H Plt Count 327 D MPV 8.5 Neut % (Auto) 71.3 Lymph % (Auto) 19.[address] [place] % (Auto) 7.2 Eos % (Auto) 0.7 Baso % (Auto) 1.7 Neut # 5.3 Lymph # 1.4 [place] # 0.5 Eos # 0.1 Baso # 0.1 Puncture Site pCO2 pO2 HCO3 ABG pH ABG Total CO2 ABG O2 Saturation ABG Base Excess ABG Hemoglobin ABG Carboxyhemoglobin POC ABG HHb (Measured) ABG Methemoglobin Singh Test ABG Potassium A-a O2 Difference Respiratory Index Hgb O2 Saturation Sodium 141 Chloride 109 H Glucose Lactate Liter Flow Vent Mode Mechanical Rate FiO2 Tidal Volume PEEP Pressure Support Potassium 4.0 Carbon Dioxide 25 Anion Gap 11 BUN 35 H Creatinine 0.5 L Est GFR ( Amer) > 60 Est GFR (Non-Af Amer) > 60 POC Glucose (mg/dL) Random Glucose 154 H Calcium 8.1 L Phosphorus 3.3 Magnesium 2.0 Total Bilirubin 0.3 AST 21 ALT 44 Alkaline Phosphatase 137 H Total Protein 6.9 Albumin 3.5 D Globulin 3.4 Albumin/Globulin Ratio 1.0 Arterial Blood Potassium Fingerstick Blood Sugar Results: 75
[2017-01-23] MEDS: Saccharomyces Boulardi 250 mg Cap PO SCH ×2 (10:33→17:47)
[2017-01-23] MEDS: Enoxaparin 40 mg Syringe SC SCH (10:33)
--- NOTE | 2017-01-23 12:07 | PN ---
DATE: SUBJECTIVE: The patient was extubated yesterday. No reported SVT and no reported hypotension. PHYSICAL EXAMINATION: VITAL SIGNS: Blood pressure 163/83, heart rate 103, temperature 98.4, and respirations 22. HEENT: Pale conjunctivae. CHEST: Bilateral rhonchi. HEART: S1 and S2, regular. EXTREMITIES: Contracture deformity. LABORATORY DATA: Hemoglobin and hematocrit 10.5 and 31.9, white count and platelet count are within normal limits. SMA-7; sodium 141, potassium 4, chloride 109, CO2 of 25, glucose 154, BUN 35, and creatinine 0.5. ASSESSMENT: 1. Status post respiratory failure. 2. Congestive heart failure. 3. History of paroxysmal reentrant supraventricular tachycardia. 4. Anemia. 5. History of multiple falls. 6. Questionable seizure disorder. RECOMMENDATIONS: Continue Aldactone 12.5 mg twice a day, IV Zithromax, and IV Azactam. Continue Cardizem at 300 mg p.o. q.i.d., aspirin 81 mg once a day, Keppra 750 mg twice a day, Lovenox 40 mg subcutaneously once a day, and Vasotec 2.5 mg once a day. Florian Crowell MD
[2017-01-23] MEDS ORDERED: Dextrose 5%/0.9% NS 1,000 ML IV ONE (22:57)
--- NOTE | 2017-01-23 23:18 | CP.PCM.PN ---
Subjective - Date & Time of Evaluation Date of Evaluation: 01/23/17 Time of Evaluation: 17:00 - Subjective Subjective: 81-year-old female with history of anxiety atrial fibrillation depression seizure disorder hypothyroidism hypertension multiple falls, kyphoscoliosis contractions Patient intubated. Currently extubated. Tachycardia with a rapid A. fib noted. Patient is coughing up with a thick yellow mucus production. Currently on Cardizem drip. Very poor eating. IV fluid dextrose is stranding. Patient is awake and responding, but in mild respiratory distress noted Objective - Vital Signs/Intake and Output Vital Signs (last 24 hours): Temp Pulse Resp BP Pulse Ox 98.7 F 103 H 31 H 169/76 H 94 L 01/23/17 16:00 01/23/17 18:00 01/23/17 18:00 01/23/17 17:35 01/23/17 18:00 Intake and Output: 01/23/17 01/24/17 18:59 06:59 Intake Total 827 126 Output Total 645 160 Balance 182 -34 - Medications Medications: Current Medications Acetaminophen (Tylenol 325mg Tab) 650 mg PO Q6 PRN PRN Reason: Pain, moderate (4-7) Last Admin: 01/18/17 15:23 Dose: 650 mg Aspirin (Ecotrin) 81 mg PO DAILY [facility] Last Admin: 01/23/17 10:33 Dose: 81 mg Calcium Carbonate (Oscal) 500 mg PO BID [facility] Last Admin: 01/23/17 17:47 Dose: 500 mg Diltiazem HCl (Cardizem) 30 mg PO QID [facility] Last Admin: 01/23/17 22:00 Dose: 30 mg Enalapril Maleate (Vasotec) 2.5 mg PO DAILY [facility] Last Admin: 01/23/17 10:45 Dose: 2.5 mg Enoxaparin Sodium (Lovenox) 40 mg SC DAILY [facility] Last Admin: 01/23/17 10:33 Dose: 40 mg Folic Acid (Folic Acid) 1 mg PO DAILY [facility] Last Admin: 01/23/17 10:41 Dose: 1 mg Aztreonam 2 gm/ Sodium (Chloride) 100 mls @ 200 mls/hr IVPB Q8H [facility] Last Admin: 01/23/17 18:01 Dose: 200 mls/hr Diltiazem HCl 125 mg/ Dextrose 125 mls @ 5 mls/hr IV .Q24H [facility]; 5 MG/HR PRN Reason: Protocol Last Titration: 01/23/17 12:00 Dose: 0 mg/hr, 0 mls/hr Azithromycin 500 mg/ Sodium (Chloride) 250 mls @ 250 mls/hr IVPB DAILY [facility] Last Admin: 01/23/17 10:42 Dose: 250 mls/hr Dextrose/Sodium Chloride (Dextrose 5%/0.9% Ns 1000 Ml) 1,000 mls @ 42 mls/hr IV .[id number] ONE Stop: 01/24/17 22:45 Insulin Aspart (Novolog) 0 unit SC Q4H [facility] PRN Reason: Protocol Last Admin: 01/23/17 22:29 Dose: Not Given Insulin Glargine (Lantus) 15 unit SC BIDAC [facility] Last Admin: 01/23/17 17:36 Dose: Not Given Ipratropium [place] (Atrovent) 0.5 mg IH RQ6 PRN PRN Reason: Shortness of Breath Levetiracetam (Keppra) 750 mg PO BID [facility] Last Admin: 01/23/17 17:47 Dose: 750 mg Levothyroxine Sodium (Synthroid) 25 mcg PO DAILY@0630 [facility] Last Admin: 01/23/17 05:41 Dose: 25 mcg Magnesium Hydroxide (Milk Of Magnesia) 30 ml PO DAILY PRN PRN Reason: Constipation Last Admin: 01/22/17 09:27 Dose: 30 ml Nystatin (Nystop Topical Powder) 1 applic TOP BID [facility] Last Admin: 01/23/17 17:48 Dose: 1 applic Pantoprazole Sodium (Protonix Inj) 40 mg IVP DAILY [facility] Last Admin: 01/23/17 10:34 Dose: 40 mg Rosuvastatin Calcium (Crestor) 20 mg PO HS [facility] Last Admin: 01/23/17 22:00 Dose: 20 mg Saccharomyces Boulardii (Florastor) 250 mg PO BID [facility] Last Admin: 01/23/17 17:47 Dose: 250 mg Spironolactone (Aldactone) 12.5 mg PO BID [facility] Last Admin: 01/23/17 17:47 Dose: 12.5 mg - Labs Labs: 01/23/17 06:28 01/23/17 06:28 Assessment and Plan (1) Respiratory failure Status: Acute (2) Seizure disorder Status: Acute (3) Uncontrolled blood glucose Status: Acute (4) Systolic CHF Status: Acute
[2017-01-24] MEDS: Aztreonam 2 GM in Sodium Chloride 0.9% 100 ML IVPB SCH ×2 (02:40→10:43)
[2017-01-24] MEDS: (Novolog) Insulin Aspart, Recombinant 100 u/ml 10 ml vial SC SCH ×7 (02:58→22:39)
[2017-01-24 06:25] LABS: BASO # 0.1 K/uL (0.0-0.2); EOS % 0.1 % (0.0-4.0); LYMPH # 0.9 K/uL (1.0-4.3); MONO # 0.4 K/uL (0.0-0.8); NEUT % 81.4 % (50.0-75.0)
[2017-01-24] MEDS: Levothyroxine 25 MCG TAB PO SCH (06:30)
[2017-01-24 06:46] LABS: ALB/GLOB RATIO 0.7 (1.0-2.1); ALBUMIN 3.5 g/dL (3.5-5.0); ALT/SGPT 42 U/L (9-52); AST/SGOT 24 U/L (14-36); BLOOD UREA NITROGEN 21 mg/dL (7-17); CALCIUM 8.1 mg/dl (8.6-10.4); GFR AFRICAN-AMERICAN > 60; GFR NON-AFRICAN AMERICAN > 60; MAGNESIUM 1.9 mg/dL (1.6-2.3)
[2017-01-24 06:54] LABS: BASO % 0.8 % (0.0-2.0); LYMPH % 12.5 % (20.0-40.0); MEAN CELL VOLUME 81.4 fL (81.0-99.0); MEAN CORPUSCULAR HEMOGLOBIN 26.4 pg (27.0-31.0); MEAN CORPUSCULAR HGB CONC 32.4 g/dL (33.0-37.0); MEAN PLATELET VOLUME 8.2 fL (7.2-11.7); MONO % 5.2 % (0.0-10.0); NEUT # 5.8 K/uL (1.8-7.0); NRBC % 0.5 % (0.0-2.0); RBC 4.16 Mil/uL (3.80-5.20); RED CELL DISTRIBUTION WIDTH 15.2 % (11.5-14.5); WHITE BLOOD COUNT 7.2 K/uL (4.8-10.8)
[2017-01-24] MEDS: (Lantus) Insulin Glargine, Recombinant SC SCH ×2 (07:30→16:28)
[2017-01-24] MEDS ORDERED: Sodium Bicarbonate (8.4%) 50 Meq Syringe IVP STA (09:26)
[2017-01-24] MEDS ORDERED: Rocuronium 10 mg/ml (5 ml) IV ONE (09:51)
[2017-01-24] MEDS: Ipratropium 0.02% Inhal Soln (0.5 mg/2.5 ml) UD IH PRN ×2 (10:07→19:36)
[2017-01-24] MEDS: Propofol 10 mg/ml 1,000 MG/100 ML VIAL IV PRN ×2 (10:18→22:33)
[2017-01-24] MEDS: Etomidate 20 mg/10ml Inj IV ONE ×2 (10:23→10:25)
--- NOTE | 2017-01-24 10:35 | RAD ---
HISTORY: Shortness of breath COMPARISON: 01/22/2017 FINDINGS: The left IJV line terminates in the SVC. LUNGS: There is interval complete opacification of the right hemithorax. There is no evidence of cyst or mediastinal. There is moderate venous congestion in the left lung. PLEURA: No significant pleural effusion identified, no pneumothorax apparent. CARDIOVASCULAR: The heart is normal in size. Atherosclerotic aortic arch calcifications are present. OSSEOUS STRUCTURES: No significant abnormalities. VISUALIZED UPPER ABDOMEN: Normal. OTHER FINDINGS: None. IMPRESSION: Interval complete opacification of the right hemithorax which may be related to collapse, consolidation or less likely effusion.
[2017-01-24] MEDS: Saccharomyces Boulardi 250 mg Cap PO SCH ×2 (10:45→17:29)
[2017-01-24] MEDS: Enoxaparin 40 mg Syringe SC SCH (10:50)
[2017-01-24 11:16] LABS: ARTERIAL BLOOD GAS HCO3 25.5 mmol/L (21-28); ARTERIAL BLOOD GAS HEMOGLOBIN 15.8 g/dL (11.7-17.4); ARTERIAL BLOOD GAS O2 SAT 99.5 % (95-98); ARTERIAL BLOOD GAS PCO2 27 mm/Hg (35-45); ARTERIAL BLOOD GAS PH 7.52 (7.35-7.45); ARTERIAL BLOOD GAS PO2 443 mm/Hg (80-100); ARTERIAL BLOOD GAS TCO2 22.8 mmol/L (22-28)
--- NOTE | 2017-01-24 11:34 | RAD ---
HISTORY: s/p intubation COMPARISON: Plain radiographs performed earlier the same day FINDINGS: The endotracheal tube terminates 1.5 cm proximal to the iwona. The left IJV line terminates in the SVC. LUNGS: There is interval significant improvement in right lung aeration. Again seen is severe pulmonary venous congestion and redistribution. There are also stable chronic changes in both lungs. There is airspace disease in the right upper lobe. The lungs are hyperinflated. PLEURA: No significant pleural effusion identified, no pneumothorax apparent. CARDIOVASCULAR: Stable cardiomegaly. Atherosclerotic aortic arch calcifications are present. OSSEOUS STRUCTURES: There are multiple old fracture deformities in the right lateral ribs and left mid ribs. VISUALIZED UPPER ABDOMEN: Normal. OTHER FINDINGS: None. IMPRESSION: Interval significant improved aeration in the right lung. Airspace disease in the right upper lobe may represent atelectasis or pneumonia. Persistent severe pulmonary venous congestion and interstitial edema. Background of COPD.
--- NOTE | 2017-01-24 15:15 | CP.CCUPN ---
<Traci Garcia - Last Filed: 01/24/17 15:21> CCU Subjective - Physician Review Subjective (Free Text): 01/24/17 15:[address] Weldon Patient seen and examined at bedside. Patient was having extreme accessory muscle use with breathing, diaphoretic and showing signs of fatigue. The decision was made to intubate the patient. Dr. Mcnamara intubated the patient with fentanyl, etomidate, and sedation with propofol drip. Critical Care Time Spent (in minutes): 35 CCU Objective - Vital Signs / Intake & Output Vital Signs (Last 4 hours): Vital Signs Temp Pulse Resp BP Pulse Ox 01/24/17 14:00 64 18 140/64 100 01/24/17 13:00 61 18 146/63 100 01/24/17 12:00 97.2 F L 69 18 140/74 100 Intake and Output (Last 8hrs): Intake & Output 01/24/17 01/24/17 01/24/17 06:59 14:59 22:59 Intake Total 336 434 Output Total 450 Balance -114 434 Weight 101 lb Intake: Intake, IV Amount 336 434 Left Medial Port Internal 336 434 Jugular Output: Urine 450 Urethral (Couch) 450 - Physical Exam Physical Exam Limitations: Positive for: Other (diaphoretic) Head: Positive for: Atraumatic, Normocephalic Pupils: Positive for: PERRL Extroacular Muscles: Positive for: EOMI Mouth: Positive for: Moist Mucous Membranes, Other (intubated) Respiratory/Chest: Positive for: Decreased Breath Sounds, Rales, Other ( intubated). Negative for: Respiratory Distress, Accessory Muscle Use Cardiovascular: Positive for: Regular Rate and Rhythm, Murmurs, Normal S1, S2 Abdomen: Negative for: Tenderness, Distention, Peritoneal Signs Upper Extremity: Positive for: Normal Inspection. Negative for: Edema Lower Extremity: Positive for: Normal Inspection. Negative for: Edema Neurological: Positive for: Other (intubated) Skin: Positive for: Warm Psychiatric: Positive for: Alert, Other (intubated) - Medications Active Medications: Active Medications Generic Name Dose Route Start Last Admin Trade Name Freq PRN Reason Stop Dose Admin Acetaminophen 650 mg 01/17/17 21:49 01/18/17 15:23 Tylenol 325mg Tab PO 650 mg Q6 PRN Administration Pain, moderate (4-7) Aspirin 81 mg 01/18/17 10:00 01/24/17 10:45 Ecotrin PO 81 mg DAILY SCOTTY Administration Diltiazem HCl 30 mg 01/17/17 22:00 01/24/17 10:42 Cardizem PO 30 mg QID SCOTTY Administration Enalapril Maleate 2.5 mg 01/21/17 10:00 01/24/17 10:55 Vasotec PO 2.5 mg DAILY SCOTTY Administration Enoxaparin Sodium 40 mg 01/18/17 10:00 01/24/17 10:50 Lovenox SC 40 mg DAILY SCOTTY Administration Aztreonam 2 gm/ Sodium 100 mls @ 200 mls/hr 01/18/17 19:00 01/24/17 10:43 Chloride IVPB 200 mls/hr Q8H SCOTTY Administration Azithromycin 500 mg/ Dextrose 250 mls @ 250 mls/hr 01/24/17 10:00 01/24/17 10 :22 IVPB 250 mls/hr DAILY SCOTTY Administration Propofol 1,000 mg in 100 mls @ 1.388 mls/hr 01/24/17 10:00 01/24/17 10:18 Diprivan IV 20 mcg/kg/min .Q24H PRN 5.552 mls/hr TITRATE PER MD ORDER Administration Protocol 5 MCG/KG/MIN Insulin Aspart 0 unit 01/22/17 10:30 01/24/17 10:52 Novolog SC Not Given Q4H SCOTTY Protocol Insulin Glargine 15 unit 01/22/17 10:20 01/24/17 07:30 Lantus SC Not Given BIDAC [facility] Ipratropium [place] 0.5 mg 01/18/17 15:39 01/24/17 10:07 Atrovent IH 0.5 mg RQ6 PRN Administration Shortness of Breath Levetiracetam 750 mg 01/18/17 10:00 01/24/17 10:46 Keppra PO 750 mg BID SCOTTY Administration Levothyroxine Sodium 25 mcg 01/18/17 06:30 01/24/17 06:30 Synthroid PO 25 mcg DAILY@0630 SCOTTY Administration Nystatin 1 applic 01/22/17 18:00 01/24/17 10:24 Nystop Topical Powder TOP 1 applic BID SCOTTY Administration Pantoprazole Sodium 40 mg 01/19/17 10:00 01/24/17 10:55 Protonix Inj IVP 40 mg DAILY SCOTTY Administration Rosuvastatin Calcium 20 mg 01/18/17 22:00 01/23/17 22:00 Crestor PO 20 mg HS SCOTTY Administration Saccharomyces Boulardii 250 mg 01/18/17 18:00 01/24/17 10:45 Florastor PO 250 mg BID SCOTTY Administration Spironolactone 12.5 mg 01/20/17 18:00 01/24/17 10:42 Aldactone PO 12.5 mg BID SCOTTY Administration - Patient Studies Lab Studies: Lab Studies 01/24/17 01/24/17 01/24/17 Range/Units 11:28 11:11 06:20 WBC 7.2 (4.8-10.8) K/uL RBC 4.16 (3.80-5.20) Mil/uL Hgb 11.0 (11.0-16.0) g/dL Hct 33.9 L (34.0-47.0) % MCV 81.4 (81.0-99.0) fL MCH 26.4 L (27.0-31.0) pg MCHC 32.4 L (33.0-37.0) g/dL RDW 15.2 H (11.5-14.5) % Plt Count 305 (130-400) K/uL MPV 8.2 (7.2-11.7) fL Neut % (Auto) 81.4 H (50.0-75.0) % Lymph % (Auto) 12.5 L (20.0-40.0) % Holt % (Auto) 5.2 (0.0-10.0) % Eos % (Auto) 0.1 (0.0-4.0) % Baso % (Auto) 0.8 (0.0-2.0) % Neut # 5.8 (1.8-7.0) K/uL Lymph # 0.9 L (1.0-4.3) K/uL Holt # 0.4 (0.0-0.8) K/uL Eos # 0.0 (0.0-0.7) K/uL Baso # 0.1 (0.0-0.2) K/uL Puncture Site Rba pCO2 27 L (35-45) mm/Hg pO2 443 H (80-100) mm/Hg HCO3 25.5 (21-28) mmol/L ABG pH 7.52 H (7.35-7.45) ABG Total CO2 22.8 (22-28) mmol/L ABG O2 Saturation 99.5 H (95-98) % ABG Base Excess 0.7 (-2.0-3.0) mmol/L ABG Hemoglobin 15.8 (11.7-17.4) g/dL ABG Carboxyhemoglobin 1.2 (0.5-1.5) % POC ABG HHb (Measured) 0.5 (0.0-5.0) % ABG Methemoglobin 1.1 (0.0-3.0) % Singh Test Na A-a O2 Difference 236.0 mm/Hg Respiratory Index 0.5 Hgb O2 Saturation 97.2 (95.0-98.0) % Vent Mode Prvc Mechanical Rate 18 FiO2 100.0 % Tidal Volume 450 PEEP 5 Sodium (132-148) mmol/L Potassium (3.6-5.2) mmol/L Chloride (98-107) mmol/L Carbon Dioxide (22-30) mmol/L Anion Gap (10-20) BUN (7-17) mg/dL Creatinine (0.7-1.2) mg/dL Est GFR ( Amer) Est GFR (Non-Af Amer) POC Glucose (mg/dL) 271 H (65-110) mg/dL Random Glucose (65-105) mg/dL Calcium (8.6-10.4) mg/dl Phosphorus (2.5-4.5) mg/dL Magnesium (1.6-2.3) mg/dL Total Bilirubin (0.2-1.3) mg/dL AST (14-36) U/L ALT (9-52) U/L Alkaline Phosphatase (38-126) U/L Total Protein (6.3-8.3) g/dL Albumin (3.5-5.0) g/dL Globulin (2.2-3.9) gm/dL Albumin/Globulin Ratio (1.0-2.1) 01/24/17 01/24/17 01/24/17 Range/Units 06:16 05:47 02:54 WBC (4.8-10.8) K/uL RBC (3.80-5.20) Mil/uL Hgb (11.0-16.0) g/dL Hct (34.0-47.0) % MCV (81.0-99.0) fL MCH (27.0-31.0) pg MCHC (33.0-37.0) g/dL RDW (11.5-14.5) % Plt Count (130-400) K/uL MPV (7.2-11.7) fL Neut % (Auto) (50.0-75.0) % Lymph % (Auto) (20.0-40.0) % Holt % (Auto) (0.0-10.0) % Eos % (Auto) (0.0-4.0) % Baso % (Auto) (0.0-2.0) % Neut # (1.8-7.0) K/uL Lymph # (1.0-4.3) K/uL Holt # (0.0-0.8) K/uL Eos # (0.0-0.7) K/uL Baso # (0.0-0.2) K/uL Puncture Site pCO2 (35-45) mm/Hg pO2 (80-100) mm/Hg HCO3 (21-28) mmol/L ABG pH (7.35-7.45) ABG Total CO2 (22-28) mmol/L ABG O2 Saturation (95-98) % ABG Base Excess (-2.0-3.0) mmol/L ABG Hemoglobin (11.7-17.4) g/dL ABG Carboxyhemoglobin (0.5-1.5) % POC ABG HHb (Measured) (0.0-5.0) % ABG Methemoglobin (0.0-3.0) % Singh Test A-a O2 Difference mm/Hg Respiratory Index Hgb O2 Saturation (95.0-98.0) % Vent Mode Mechanical Rate FiO2 % Tidal Volume PEEP Sodium 141 (132-148) mmol/L Potassium 4.3 (3.6-5.2) mmol/L Chloride 110 H (98-107) mmol/L Carbon Dioxide 26 (22-30) mmol/L Anion Gap 9 L (10-20) BUN 21 H (7-17) mg/dL Creatinine 0.3 L (0.7-1.2) mg/dL Est GFR ( Amer) > 60 Est GFR (Non-Af Amer) > 60 POC Glucose (mg/dL) 185 H 189 H (65-110) mg/dL Random Glucose 193 H (65-105) mg/dL Calcium 8.1 L (8.6-10.4) mg/dl Phosphorus 3.0 (2.5-4.5) mg/dL Magnesium 1.9 (1.6-2.3) mg/dL Total Bilirubin 0.4 (0.2-1.3) mg/dL AST 24 (14-36) U/L ALT 42 (9-52) U/L Alkaline Phosphatase 131 H (38-126) U/L Total Protein 8.6 H (6.3-8.3) g/dL Albumin 3.5 (3.5-5.0) g/dL Globulin 5.1 H (2.2-3.9) gm/dL Albumin/Globulin Ratio 0.7 L (1.0-2.1) 01/23/17 01/23/17 01/23/17 Range/Units 23:32 22:29 17:35 WBC (4.8-10.8) K/uL RBC (3.80-5.20) Mil/uL Hgb (11.0-16.0) g/dL Hct (34.0-47.0) % MCV (81.0-99.0) fL MCH (27.0-31.0) pg MCHC (33.0-37.0) g/dL RDW (11.5-14.5) % Plt Count (130-400) K/uL MPV (7.2-11.7) fL Neut % (Auto) (50.0-75.0) % Lymph % (Auto) (20.0-40.0) % Holt % (Auto) (0.0-10.0) % Eos % (Auto) (0.0-4.0) % Baso % (Auto) (0.0-2.0) % Neut # (1.8-7.0) K/uL Lymph # (1.0-4.3) K/uL Holt # (0.0-0.8) K/uL Eos # (0.0-0.7) K/uL Baso # (0.0-0.2) K/uL Puncture Site pCO2 (35-45) mm/Hg pO2 (80-100) mm/Hg HCO3 (21-28) mmol/L ABG pH (7.35-7.45) ABG Total CO2 (22-28) mmol/L ABG O2 Saturation (95-98) % ABG Base Excess (-2.0-3.0) mmol/L ABG Hemoglobin (11.7-17.4) g/dL ABG Carboxyhemoglobin (0.5-1.5) % POC ABG HHb (Measured) (0.0-5.0) % ABG Methemoglobin (0.0-3.0) % Singh Test A-a O2 Difference mm/Hg Respiratory Index Hgb O2 Saturation (95.0-98.0) % Vent Mode Mechanical Rate FiO2 % Tidal Volume PEEP Sodium (132-148) mmol/L Potassium (3.6-5.2) mmol/L Chloride (98-107) mmol/L Carbon Dioxide (22-30) mmol/L Anion Gap (10-20) BUN (7-17) mg/dL Creatinine (0.7-1.2) mg/dL Est GFR ( Amer) Est GFR (Non-Af Amer) POC Glucose (mg/dL) 185 H 172 H 174 H (65-110) mg/dL Random Glucose (65-105) mg/dL Calcium (8.6-10.4) mg/dl Phosphorus (2.5-4.5) mg/dL Magnesium (1.6-2.3) mg/dL Total Bilirubin (0.2-1.3) mg/dL AST (14-36) U/L ALT (9-52) U/L Alkaline Phosphatase (38-126) U/L Total Protein (6.3-8.3) g/dL Albumin (3.5-5.0) g/dL Globulin (2.2-3.9) gm/dL Albumin/Globulin Ratio (1.0-2.1) Laboratory Results - last 24 hr 01/23/17 01/23/17 01/23/17 17:35 22:29 23:32 WBC RBC Hgb Hct MCV MCH MCHC RDW Plt Count MPV Neut % (Auto) Lymph % (Auto) Holt % (Auto) Eos % (Auto) Baso % (Auto) Neut # Lymph # Holt # Eos # Baso # Puncture Site pCO2 pO2 HCO3 ABG pH ABG Total CO2 ABG O2 Saturation ABG Base Excess ABG Hemoglobin ABG Carboxyhemoglobin POC ABG HHb (Measured) ABG Methemoglobin Singh Test A-a O2 Difference Respiratory Index Hgb O2 Saturation Vent Mode Mechanical Rate FiO2 Tidal Volume PEEP Sodium Potassium Chloride Carbon Dioxide Anion Gap BUN Creatinine Est GFR ( Amer) Est GFR (Non-Af Amer) POC Glucose (mg/dL) 174 H 172 H 185 H Random Glucose Calcium Phosphorus Magnesium Total Bilirubin AST ALT Alkaline Phosphatase Total Protein Albumin Globulin Albumin/Globulin Ratio 01/24/17 01/24/17 01/24/17 02:54 05:47 06:16 WBC RBC Hgb Hct MCV MCH MCHC RDW Plt Count MPV Neut % (Auto) Lymph % (Auto) Holt % (Auto) Eos % (Auto) Baso % (Auto) Neut # Lymph # Holt # Eos # Baso # Puncture Site pCO2 pO2 HCO3 ABG pH ABG Total CO2 ABG O2 Saturation ABG Base Excess ABG Hemoglobin ABG Carboxyhemoglobin POC ABG HHb (Measured) ABG Methemoglobin Singh Test A-a O2 Difference Respiratory Index Hgb O2 Saturation Vent Mode Mechanical Rate FiO2 Tidal Volume PEEP Sodium 141 Potassium 4.3 Chloride 110 H Carbon Dioxide 26 Anion Gap 9 L BUN 21 H Creatinine 0.3 L Est GFR ( Amer) > 60 Est GFR (Non-Af Amer) > 60 POC Glucose (mg/dL) 189 H 185 H Random Glucose 193 H Calcium 8.1 L Phosphorus 3.0 Magnesium 1.9 Total Bilirubin 0.4 AST 24 ALT 42 Alkaline Phosphatase 131 H Total Protein 8.6 H Albumin 3.5 Globulin 5.1 H Albumin/Globulin Ratio 0.7 L 01/24/17 01/24/17 01/24/17 06:20 11:11 11:28 WBC 7.2 RBC 4.16 Hgb 11.0 Hct 33.9 L MCV 81.4 MCH 26.4 L MCHC 32.4 L RDW 15.2 H Plt Count 305 MPV 8.2 Neut % (Auto) 81.4 H Lymph % (Auto) 12.5 L Holt % (Auto) 5.2 Eos % (Auto) 0.1 Baso % (Auto) 0.8 Neut # 5.8 Lymph # 0.9 L Holt # 0.4 Eos # 0.0 Baso # 0.1 Puncture Site Rba pCO2 27 L pO2 443 H HCO3 25.5 ABG pH 7.52 H ABG Total CO2 22.8 ABG O2 Saturation 99.5 H ABG Base Excess 0.7 ABG Hemoglobin 15.8 ABG Carboxyhemoglobin 1.2 POC ABG HHb (Measured) 0.5 ABG Methemoglobin 1.1 Singh Test Na A-a O2 Difference 236.0 Respiratory Index 0.5 Hgb O2 Saturation 97.2 Vent Mode Prvc Mechanical Rate 18 FiO2 100.0 Tidal Volume 450 PEEP 5 Sodium Potassium Chloride Carbon Dioxide Anion Gap BUN Creatinine Est GFR ( Amer) Est GFR (Non-Af Amer) POC Glucose (mg/dL) 271 H Random Glucose Calcium Phosphorus Magnesium Total Bilirubin AST ALT Alkaline Phosphatase Total Protein Albumin Globulin Albumin/Globulin Ratio Fingerstick Blood Sugar Results: 185 Critical Care Progress Note - Ventilator Checklist Head of Bed 30 Degrees: Yes Daily Sedation Vacation: No Daily Assessment of Readiness to Wean: No Daily Spontaneous Breathing Trial: No PUD Prophalyxis: Yes DVT Prophylaxis: Yes - Vent Settings TIDAL VOLUME:: 450 RESP RATE:: 18 FIO2:: 100 PEEP:: 5 - Extremities/Vascular Does the Patient have a Central Venous Catheter?: Yes (Left IJ) Insertion Site: Internal Jugular Vein Assessment/Plan - Assessment and Plan (Free Text) Assessment: Patient is an 81 year old female presenting to the hospital with vague chest pain that needed to be intubated due to respiratory failure from hypercapnia. Patient was transferred to the ICU for further evaluation. Plan: Neuro: hx of seizures hx of CVA Propofol drip - discontinued Precedex drip Keppra 750mg PO BID Propofol 5mcg/kg/min CV: Cardio - Dr. Crowell consulted, help appreciated hx of Afib (currently sinus on monitor) HTN Trop 0.027/0.025/0.023 Pro-BNP 2310 Diltiazem 30mg PO qid Crestor 20mg PO HS Aspirin 81mg PO daily Metoprolol Tartrate 75mg PO q8h - discontinued Enalapril Maleate 2.5 mg PO daily Losartan 100mg PO daily - discontinued Spironolactone 12.5mg PO BID Pulmonary: Intubated (01/18), extubated 01/22, re-intubated 01/24 01/24 CXR showed right side with extreme pleural effusion 01/24 CXR: confirmed placement of ET, 22 at the lip 01/24 ABG: pH 7.52, pO2 443, pCO2 27, pHCO3 25.5 COPD Acute hypeoxemic respiratory failure Pneumonia CXR 01/21/17 - Worsening now small left pleural effusion. Biapical pleural thickening with upper lobe granulomatous changes. Diffuse increased interstitial lung markings. Scattered nodularity throughout the right lung. Calcification at the aortic knob. Cardiomegaly. Tortuous ectatic aorta. Multiple bilateral rib deformities. Right humeral deformity. Multiple lobulated calcifications within the right breast. ABG - pCO2 29, pO2 157, HCO3 22.0, pH 7.44 on vent settings 450/40/14/5 - Patient tolerated CPAP for approx. 4 hours yesterday, continue CPAP trails today WBC 5.5 Procalcitonin 01/18 - 0.06 Atrovent 0.5mg IH q6h PRN Azithromycin 500mg IVPB daily Aztreonam 2gm IVPB q8h Clindamycin 600mg IVPB q8h Solumedrol 20mg - once Lasix 20mg - once Blood Culture negative at 3 days x 2 Endo: DM2 Hypothyroidism Lantus 10 units SC BIDAC - restarted ISS - q6h Synthroid 25mcg PO daily : UTI urine culture 01/18 - gram negative rods/yeast - awaiting sensitivities Prophylactic Care: Lovenox 40mg SC daily Protonix 40mg IVP daily Folic Acid 1mg PO daily Florastor 250mg PO BID Tube feeding Case discussed with Dr. Fatemeh Amos PGY1 - Date & Time Date: 01/24/17 Time: 15:22 <Gonzalez Weldon - Last Filed: 01/24/17 18:56> CCU Objective - Vital Signs / Intake & Output Vital Signs (Last 4 hours): Vital Signs Temp Pulse Resp BP Pulse Ox 01/24/17 18:00 71 19 138/61 100 01/24/17 17:00 73 18 150/67 100 01/24/17 16:00 98.5 F 67 18 140/71 100 01/24/17 15:00 68 18 154/63 H 100 Intake and Output (Last 8hrs): Intake & Output 01/24/17 01/24/17 01/24/17 06:59 14:59 22:59 Intake Total 336 434 75 Output Total 450 350 220 Balance -114 84 -145 Weight 101 lb Intake: Intake, IV Amount 336 434 Left Medial Port Internal 336 434 Jugular Tube Feeding 75 Output: Urine 450 350 220 Urethral (Couch) 450 350 220 - Medications Active Medications: Active Medications Generic Name Dose Route Start Last Admin Trade Name Freq PRN Reason Stop Dose Admin Acetaminophen 650 mg 01/17/17 21:49 01/18/17 15:23 Tylenol 325mg Tab PO 650 mg Q6 PRN Administration Pain, moderate (4-7) Aspirin 81 mg 01/18/17 10:00 01/24/17 10:45 Ecotrin PO 81 mg DAILY SCOTTY Administration Diltiazem HCl 30 mg 01/17/17 22:00 01/24/17 17:29 Cardizem PO 30 mg QID SCOTTY Administration Enalapril Maleate 2.5 mg 01/21/17 10:00 01/24/17 10:55 Vasotec PO 2.5 mg DAILY SCOTTY Administration Enoxaparin Sodium 40 mg 01/18/17 10:00 01/24/17 10:50 Lovenox SC 40 mg DAILY SCOTTY Administration Furosemide 40 mg 01/25/17 10:00 Lasix IVP DAILY CSOTTY Azithromycin 500 mg/ Dextrose 250 mls @ 250 mls/hr 01/24/17 10:00 01/24/17 10 :22 IVPB 250 mls/hr DAILY SCOTTY Administration Propofol 1,000 mg in 100 mls @ 1.388 mls/hr 01/24/17 10:00 01/24/17 10:18 Diprivan IV 20 mcg/kg/min .Q24H PRN 5.552 mls/hr TITRATE PER MD ORDER Administration Protocol 5 MCG/KG/MIN Aztreonam 2 gm/ Dextrose 100 mls @ 200 mls/hr 01/24/17 16:00 01/24/17 16:23 IVPB 200 mls/hr Q8H SCOTTY Administration Insulin Aspart 0 unit 01/22/17 10:30 01/24/17 17:34 Novolog SC 2 unit Q4H SCOTTY Administration Protocol Insulin Glargine 15 unit 01/22/17 10:20 01/24/17 16:28 Lantus SC 14 units BIDAC SCOTTY Administration Ipratropium [place] 0.5 mg 01/18/17 15:39 01/24/17 10:07 Atrovent IH 0.5 mg RQ6 PRN Administration Shortness of Breath Levetiracetam 750 mg 01/18/17 10:00 01/24/17 17:29 Keppra PO 750 mg BID SCOTTY Administration Levothyroxine Sodium 25 mcg 01/18/17 06:30 01/24/17 06:30 Synthroid PO 25 mcg DAILY@0630 SCOTTY Administration Nystatin 1 applic 01/24/17 18:00 01/24/17 17:35 Nystop Topical Powder TOP 1 applic BID SCOTTY Administration Pantoprazole Sodium 40 mg 01/19/17 10:00 01/24/17 10:55 Protonix Inj IVP 40 mg DAILY SCOTTY Administration Rosuvastatin Calcium 20 mg 01/18/17 22:00 01/23/17 22:00 Crestor PO 20 mg HS SCOTTY Administration Saccharomyces Boulardii 250 mg 01/18/17 18:00 01/24/17 17:29 Florastor PO 250 mg BID SCOTTY Administration Spironolactone 12.5 mg 01/20/17 18:00 01/24/17 17:30 Aldactone PO 12.5 mg BID SCOTTY Administration - Patient Studies Lab Studies: Lab Studies 01/24/17 01/24/17 01/24/17 Range/Units 17:32 15:03 11:28 WBC (4.8-10.8) K/uL RBC (3.80-5.20) Mil/uL Hgb (11.0-16.0) g/dL Hct (34.0-47.0) % MCV (81.0-99.0) fL MCH (27.0-31.0) pg MCHC (33.0-37.0) g/dL RDW (11.5-14.5) % Plt Count (130-400) K/uL MPV (7.2-11.7) fL Neut % (Auto) (50.0-75.0) % Lymph % (Auto) (20.0-40.0) % Holt % (Auto) (0.0-10.0) % Eos % (Auto) (0.0-4.0) % Baso % (Auto) (0.0-2.0) % Neut # (1.8-7.0) K/uL Lymph # (1.0-4.3) K/uL Holt # (0.0-0.8) K/uL Eos # (0.0-0.7) K/uL Baso # (0.0-0.2) K/uL Puncture Site pCO2 (35-45) mm/Hg pO2 (80-100) mm/Hg HCO3 (21-28) mmol/L ABG pH (7.35-7.45) ABG Total CO2 (22-28) mmol/L ABG O2 Saturation (95-98) % ABG Base Excess (-2.0-3.0) mmol/L ABG Hemoglobin (11.7-17.4) g/dL ABG Carboxyhemoglobin (0.5-1.5) % POC ABG HHb (Measured) (0.0-5.0) % ABG Methemoglobin (0.0-3.0) % Singh Test A-a O2 Difference mm/Hg Respiratory Index Hgb O2 Saturation (95.0-98.0) % Vent Mode Mechanical Rate FiO2 % Tidal Volume PEEP Sodium (132-148) mmol/L Potassium (3.6-5.2) mmol/L Chloride (98-107) mmol/L Carbon Dioxide (22-30) mmol/L Anion Gap (10-20) BUN (7-17) mg/dL Creatinine (0.7-1.2) mg/dL Est GFR ( Amer) Est GFR (Non-Af Amer) POC Glucose (mg/dL) 193 H 297 H 271 H (65-110) mg/dL Random Glucose (65-105) mg/dL Calcium (8.6-10.4) mg/dl Phosphorus (2.5-4.5) mg/dL Magnesium (1.6-2.3) mg/dL Total Bilirubin (0.2-1.3) mg/dL AST (14-36) U/L ALT (9-52) U/L Alkaline Phosphatase (38-126) U/L Total Protein (6.3-8.3) g/dL Albumin (3.5-5.0) g/dL Globulin (2.2-3.9) gm/dL Albumin/Globulin Ratio (1.0-2.1) 01/24/17 01/24/17 01/24/17 Range/Units 11:11 06:20 06:16 WBC 7.2 (4.8-10.8) K/uL RBC 4.16 (3.80-5.20) Mil/uL Hgb 11.0 (11.0-16.0) g/dL Hct 33.9 L (34.0-47.0) % MCV 81.4 (81.0-99.0) fL MCH 26.4 L (27.0-31.0) pg MCHC 32.4 L (33.0-37.0) g/dL RDW 15.2 H (11.5-14.5) % Plt Count 305 (130-400) K/uL MPV 8.2 (7.2-11.7) fL Neut % (Auto) 81.4 H (50.0-75.0) % Lymph % (Auto) 12.5 L (20.0-40.0) % Holt % (Auto) 5.2 (0.0-10.0) % Eos % (Auto) 0.1 (0.0-4.0) % Baso % (Auto) 0.8 (0.0-2.0) % Neut # 5.8 (1.8-7.0) K/uL Lymph # 0.9 L (1.0-4.3) K/uL Holt # 0.4 (0.0-0.8) K/uL Eos # 0.0 (0.0-0.7) K/uL Baso # 0.1 (0.0-0.2) K/uL Puncture Site Rba pCO2 27 L (35-45) mm/Hg pO2 443 H (80-100) mm/Hg HCO3 25.5 (21-28) mmol/L ABG pH 7.52 H (7.35-7.45) ABG Total CO2 22.8 (22-28) mmol/L ABG O2 Saturation 99.5 H (95-98) % ABG Base Excess 0.7 (-2.0-3.0) mmol/L ABG Hemoglobin 15.8 (11.7-17.4) g/dL ABG Carboxyhemoglobin 1.2 (0.5-1.5) % POC ABG HHb (Measured) 0.5 (0.0-5.0) % ABG Methemoglobin 1.1 (0.0-3.0) % Singh Test Na A-a O2 Difference 236.0 mm/Hg Respiratory Index 0.5 Hgb O2 Saturation 97.2 (95.0-98.0) % Vent Mode Prvc Mechanical Rate 18 FiO2 100.0 % Tidal Volume 450 PEEP 5 Sodium 141 (132-148) mmol/L Potassium 4.3 (3.6-5.2) mmol/L Chloride 110 H (98-107) mmol/L Carbon Dioxide 26 (22-30) mmol/L Anion Gap 9 L (10-20) BUN 21 H (7-17) mg/dL Creatinine 0.3 L (0.7-1.2) mg/dL Est GFR ( Amer) > 60 Est GFR (Non-Af Amer) > 60 POC Glucose (mg/dL) (65-110) mg/dL Random Glucose 193 H (65-105) mg/dL Calcium 8.1 L (8.6-10.4) mg/dl Phosphorus 3.0 (2.5-4.5) mg/dL Magnesium 1.9 (1.6-2.3) mg/dL Total Bilirubin 0.4 (0.2-1.3) mg/dL AST 24 (14-36) U/L ALT 42 (9-52) U/L Alkaline Phosphatase 131 H (38-126) U/L Total Protein 8.6 H (6.3-8.3) g/dL Albumin 3.5 (3.5-5.0) g/dL Globulin 5.1 H (2.2-3.9) gm/dL Albumin/Globulin Ratio 0.7 L (1.0-2.1) 01/24/17 01/24/17 01/23/17 Range/Units 05:47 02:54 23:32 WBC (4.8-10.8) K/uL RBC (3.80-5.20) Mil/uL Hgb (11.0-16.0) g/dL Hct (34.0-47.0) % MCV (81.0-99.0) fL MCH (27.0-31.0) pg MCHC (33.0-37.0) g/dL RDW (11.5-14.5) % Plt Count (130-400) K/uL MPV (7.2-11.7) fL Neut % (Auto) (50.0-75.0) % Lymph % (Auto) (20.0-40.0) % Holt % (Auto) (0.0-10.0) % Eos % (Auto) (0.0-4.0) % Baso % (Auto) (0.0-2.0) % Neut # (1.8-7.0) K/uL Lymph # (1.0-4.3) K/uL Holt # (0.0-0.8) K/uL Eos # (0.0-0.7) K/uL Baso # (0.0-0.2) K/uL Puncture Site pCO2 (35-45) mm/Hg pO2 (80-100) mm/Hg HCO3 (21-28) mmol/L ABG pH (7.35-7.45) ABG Total CO2 (22-28) mmol/L ABG O2 Saturation (95-98) % ABG Base Excess (-2.0-3.0) mmol/L ABG Hemoglobin (11.7-17.4) g/dL ABG Carboxyhemoglobin (0.5-1.5) % POC ABG HHb (Measured) (0.0-5.0) % ABG Methemoglobin (0.0-3.0) % Singh Test A-a O2 Difference mm/Hg Respiratory Index Hgb O2 Saturation (95.0-98.0) % Vent Mode Mechanical Rate FiO2 % Tidal Volume PEEP Sodium (132-148) mmol/L Potassium (3.6-5.2) mmol/L Chloride (98-107) mmol/L Carbon Dioxide (22-30) mmol/L Anion Gap (10-20) BUN (7-17) mg/dL Creatinine (0.7-1.2) mg/dL Est GFR ( Amer) Est GFR (Non-Af Amer) POC Glucose (mg/dL) 185 H 189 H 185 H (65-110) mg/dL Random Glucose (65-105) mg/dL Calcium (8.6-10.4) mg/dl Phosphorus (2.5-4.5) mg/dL Magnesium (1.6-2.3) mg/dL Total Bilirubin (0.2-1.3) mg/dL AST (14-36) U/L ALT (9-52) U/L Alkaline Phosphatase (38-126) U/L Total Protein (6.3-8.3) g/dL Albumin (3.5-5.0) g/dL Globulin (2.2-3.9) gm/dL Albumin/Globulin Ratio (1.0-2.1) 01/23/17 Range/Units 22:29 WBC (4.8-10.8) K/uL RBC (3.80-5.20) Mil/uL Hgb (11.0-16.0) g/dL Hct (34.0-47.0) % MCV (81.0-99.0) fL MCH (27.0-31.0) pg MCHC (33.0-37.0) g/dL RDW (11.5-14.5) % Plt Count (130-400) K/uL MPV (7.2-11.7) fL Neut % (Auto) (50.0-75.0) % Lymph % (Auto) (20.0-40.0) % Holt % (Auto) (0.0-10.0) % Eos % (Auto) (0.0-4.0) % Baso % (Auto) (0.0-2.0) % Neut # (1.8-7.0) K/uL Lymph # (1.0-4.3) K/uL Holt # (0.0-0.8) K/uL Eos # (0.0-0.7) K/uL Baso # (0.0-0.2) K/uL Puncture Site pCO2 (35-45) mm/Hg pO2 (80-100) mm/Hg HCO3 (21-28) mmol/L ABG pH (7.35-7.45) ABG Total CO2 (22-28) mmol/L ABG O2 Saturation (95-98) % ABG Base Excess (-2.0-3.0) mmol/L ABG Hemoglobin (11.7-17.4) g/dL ABG Carboxyhemoglobin (0.5-1.5) % POC ABG HHb (Measured) (0.0-5.0) % ABG Methemoglobin (0.0-3.0) % Singh Test A-a O2 Difference mm/Hg Respiratory Index Hgb O2 Saturation (95.0-98.0) % Vent Mode Mechanical Rate FiO2 % Tidal Volume PEEP Sodium (132-148) mmol/L Potassium (3.6-5.2) mmol/L Chloride (98-107) mmol/L Carbon Dioxide (22-30) mmol/L Anion Gap (10-20) BUN (7-17) mg/dL Creatinine (0.7-1.2) mg/dL Est GFR ( Amer) Est GFR (Non-Af Amer) POC Glucose (mg/dL) 172 H (65-110) mg/dL Random Glucose (65-105) mg/dL Calcium (8.6-10.4) mg/dl Phosphorus (2.5-4.5) mg/dL Magnesium (1.6-2.3) mg/dL Total Bilirubin (0.2-1.3) mg/dL AST (14-36) U/L ALT (9-52) U/L Alkaline Phosphatase (38-126) U/L Total Protein (6.3-8.3) g/dL Albumin (3.5-5.0) g/dL Globulin (2.2-3.9) gm/dL Albumin/Globulin Ratio (1.0-2.1) Laboratory Results - last 24 hr 01/23/17 01/23/17 01/24/17 22:29 23:32 02:54 WBC RBC Hgb Hct MCV MCH MCHC RDW Plt Count MPV Neut % (Auto) Lymph % (Auto) Holt % (Auto) Eos % (Auto) Baso % (Auto) Neut # Lymph # Holt # Eos # Baso # Puncture Site pCO2 pO2 HCO3 ABG pH ABG Total CO2 ABG O2 Saturation ABG Base Excess ABG Hemoglobin ABG Carboxyhemoglobin POC ABG HHb (Measured) ABG Methemoglobin Singh Test A-a O2 Difference Respiratory Index Hgb O2 Saturation Vent Mode Mechanical Rate FiO2 Tidal Volume PEEP Sodium Potassium Chloride Carbon Dioxide Anion Gap BUN Creatinine Est GFR ( Amer) Est GFR (Non-Af Amer) POC Glucose (mg/dL) 172 H 185 H 189 H Random Glucose Calcium Phosphorus Magnesium Total Bilirubin AST ALT Alkaline Phosphatase Total Protein Albumin Globulin Albumin/Globulin Ratio 01/24/17 01/24/17 01/24/17 05:47 06:16 06:20 WBC 7.2 RBC 4.16 Hgb 11.0 Hct 33.9 L MCV 81.4 MCH 26.4 L MCHC 32.4 L RDW 15.2 H Plt Count 305 MPV 8.2 Neut % (Auto) 81.4 H Lymph % (Auto) 12.5 L Holt % (Auto) 5.2 Eos % (Auto) 0.1 Baso % (Auto) 0.8 Neut # 5.8 Lymph # 0.9 L Holt # 0.4 Eos # 0.0 Baso # 0.1 Puncture Site pCO2 pO2 HCO3 ABG pH ABG Total CO2 ABG O2 Saturation ABG Base Excess ABG Hemoglobin ABG Carboxyhemoglobin POC ABG HHb (Measured) ABG Methemoglobin Singh Test A-a O2 Difference Respiratory Index Hgb O2 Saturation Vent Mode Mechanical Rate FiO2 Tidal Volume PEEP Sodium 141 Potassium 4.3 Chloride 110 H Carbon Dioxide 26 Anion Gap 9 L BUN 21 H Creatinine 0.3 L Est GFR ( Amer) > 60 Est GFR (Non-Af Amer) > 60 POC Glucose (mg/dL) 185 H Random Glucose 193 H Calcium 8.1 L Phosphorus 3.0 Magnesium 1.9 Total Bilirubin 0.4 AST 24 ALT 42 Alkaline Phosphatase 131 H Total Protein 8.6 H Albumin 3.5 Globulin 5.1 H Albumin/Globulin Ratio 0.7 L 01/24/17 01/24/17 01/24/17 11:11 11:28 15:03 WBC RBC Hgb Hct MCV MCH MCHC RDW Plt Count MPV Neut % (Auto) Lymph % (Auto) Holt % (Auto) Eos % (Auto) Baso % (Auto) Neut # Lymph # Holt # Eos # Baso # Puncture Site Rba pCO2 27 L pO2 443 H HCO3 25.5 ABG pH 7.52 H ABG Total CO2 22.8 ABG O2 Saturation 99.5 H ABG Base Excess 0.7 ABG Hemoglobin 15.8 ABG Carboxyhemoglobin 1.2 POC ABG HHb (Measured) 0.5 ABG Methemoglobin 1.1 Singh Test Na A-a O2 Difference 236.0 Respiratory Index 0.5 Hgb O2 Saturation 97.2 Vent Mode Prvc Mechanical Rate 18 FiO2 100.0 Tidal Volume 450 PEEP 5 Sodium Potassium Chloride Carbon Dioxide Anion Gap BUN Creatinine Est GFR ( Amer) Est GFR (Non-Af Amer) POC Glucose (mg/dL) 271 H 297 H Random Glucose Calcium Phosphorus Magnesium Total Bilirubin AST ALT Alkaline Phosphatase Total Protein Albumin Globulin Albumin/Globulin Ratio 01/24/17 17:32 WBC RBC Hgb Hct MCV MCH MCHC RDW Plt Count MPV Neut % (Auto) Lymph % (Auto) Holt % (Auto) Eos % (Auto) Baso % (Auto) Neut # Lymph # Holt # Eos # Baso # Puncture Site pCO2 pO2 HCO3 ABG pH ABG Total CO2 ABG O2 Saturation ABG Base Excess ABG Hemoglobin ABG Carboxyhemoglobin POC ABG HHb (Measured) ABG Methemoglobin Singh Test A-a O2 Difference Respiratory Index Hgb O2 Saturation Vent Mode Mechanical Rate FiO2 Tidal Volume PEEP Sodium Potassium Chloride Carbon Dioxide Anion Gap BUN Creatinine Est GFR ( Amer) Est GFR (Non-Af Amer) POC Glucose (mg/dL) 193 H Random Glucose Calcium Phosphorus Magnesium Total Bilirubin AST ALT Alkaline Phosphatase Total Protein Albumin Globulin Albumin/Globulin Ratio Attending/Attestation - Attestation I have personally seen and examined this patient.: Yes I have fully participated in the care of the patient.: Yes I have reviewed all pertinent clinical information: Yes Notes (Text): 01/24/17 18:56 condtion got worse intubated prognosis very poor
--- NOTE | 2017-01-24 15:15 | CP.PCM.PN ---
Subjective - Date & Time of Evaluation Date of Evaluation: 01/24/17 Time of Evaluation: 10:00 - Subjective Subjective: patient seen and examined Patient reintubated for respiratory distress and lethargy. Started on IV sedation On ventilatory support FiO2 100% Afebrile Copious thick secretions Objective - Vital Signs/Intake and Output Vital Signs (last 24 hours): Temp Pulse Resp BP Pulse Ox 97.2 F L 64 18 140/64 100 01/24/17 12:00 01/24/17 14:00 01/24/17 14:00 01/24/17 14:00 01/24/17 14:00 Intake and Output: 01/24/17 01/24/17 06:59 18:59 Intake Total 504 434 Output Total 500 Balance 4 434 - Medications Medications: Current Medications Acetaminophen (Tylenol 325mg Tab) 650 mg PO Q6 PRN PRN Reason: Pain, moderate (4-7) Last Admin: 01/18/17 15:23 Dose: 650 mg Aspirin (Ecotrin) 81 mg PO DAILY [facility] Last Admin: 01/24/17 10:45 Dose: 81 mg Diltiazem HCl (Cardizem) 30 mg PO QID [facility] Last Admin: 01/24/17 15:00 Dose: 30 mg Enalapril Maleate (Vasotec) 2.5 mg PO DAILY [facility] Last Admin: 01/24/17 10:55 Dose: 2.5 mg Enoxaparin Sodium (Lovenox) 40 mg SC DAILY [facility] Last Admin: 01/24/17 10:50 Dose: 40 mg Aztreonam 2 gm/ Sodium (Chloride) 100 mls @ 200 mls/hr IVPB Q8H [facility] Last Admin: 01/24/17 10:43 Dose: 200 mls/hr Azithromycin 500 mg/ Dextrose 250 mls @ 250 mls/hr IVPB DAILY [facility] Last Admin: 01/24/17 10:22 Dose: 250 mls/hr Propofol (Diprivan) 1,000 mg in 100 mls @ 1.388 mls/hr IV .Q24H PRN; Protocol; 5 MCG/KG/MIN PRN Reason: TITRATE PER MD ORDER Last Admin: 01/24/17 10:18 Dose: 20 mcg/kg/min, 5.552 mls/hr Insulin Aspart (Novolog) 0 unit SC Q4H [facility] PRN Reason: Protocol Last Admin: 01/24/17 15:09 Dose: 4 unit Insulin Glargine (Lantus) 15 unit SC BIDAC [facility] Last Admin: 01/24/17 07:30 Dose: Not Given Ipratropium Ray (Atrovent) 0.5 mg IH RQ6 PRN PRN Reason: Shortness of Breath Last Admin: 01/24/17 10:07 Dose: 0.5 mg Levetiracetam (Keppra) 750 mg PO BID [facility] Last Admin: 01/24/17 10:46 Dose: 750 mg Levothyroxine Sodium (Synthroid) 25 mcg PO DAILY@0630 [facility] Last Admin: 01/24/17 06:30 Dose: 25 mcg Nystatin (Nystop Topical Powder) 1 applic TOP BID [facility] Last Admin: 01/24/17 10:24 Dose: 1 applic Pantoprazole Sodium (Protonix Inj) 40 mg IVP DAILY [facility] Last Admin: 01/24/17 10:55 Dose: 40 mg Rosuvastatin Calcium (Crestor) 20 mg PO HS [facility] Last Admin: 01/23/17 22:00 Dose: 20 mg Saccharomyces Boulardii (Florastor) 250 mg PO BID [facility] Last Admin: 01/24/17 10:45 Dose: 250 mg Spironolactone (Aldactone) 12.5 mg PO BID [facility] Last Admin: 01/24/17 10:42 Dose: 12.5 mg - Labs Labs: 01/24/17 06:20 01/24/17 06:16 - Head Exam Head Exam: ATRAUMATIC, NORMOCEPHALIC - ENT Exam ENT Exam: Mucous Membranes Moist - Neck Exam Neck Exam: Normal Inspection - Respiratory Exam Respiratory Exam: Decreased Breath Sounds - Cardiovascular Exam Cardiovascular Exam: Irregular Rhythm - GI/Abdominal Exam GI & Abdominal Exam: Soft, Normal Bowel Sounds Assessment and Plan (1) Respiratory failure Assessment & Plan: Ventilatory support and reduce FiO2 as tolerated IV antibiotics IV sedation Start OGT feeding Status: Acute (2) Pneumonia Status: Acute
[2017-01-24] MEDS: Aztreonam 2 GM in Dextrose 5% In Water 100 ML IVPB SCH (16:23)
--- NOTE | 2017-01-24 16:35 | PN ---
DATE: SUBJECTIVE: The patient required intubation and mechanical ventilation this morning. No reported ventricular arrhythmia or supraventricular arrhythmia. PHYSICAL EXAMINATION: VITAL SIGNS: Blood pressure 154/63, heart rate 68, temperature 97.2, and respirations 18. HEENT: No pallor. NECK: No JVD. CHEST: Bilateral rhonchi and absent breath sounds over the right base. HEART: S1 and S2, regular. EXTREMITIES: Contracture deformity. LABORATORY DATA: SMA-7: Sodium 141, potassium 4.3, chloride 110, CO2 of 26, glucose 193, BUN 21, creatinine 0.3. Hemoglobin and hematocrit 11 and 33.9, white count and platelet count today are within normal limits. Blood culture is negative after 5 days. Chest x-ray reported interval significant improved aeration in the right lung. Airspace disease in the right upper lobe, may represent atelectasis or pneumonia. Persistent severe pulmonary venous congestion and interstitial edema. Background of COPD. ASSESSMENT: 1. Recurrent respiratory failure. 2. Congestive heart failure. 3. Chronic obstructive lung disease. 4. History of supraventricular tachycardia. 5. History of multiple falls. 6. Uncontrolled diabetes. RECOMMENDATIONS: Continue Aldactone 12.5 mg twice a day. Continue IV Azactam and IV Zithromax. Continue Crestor 20 mg once a day, Cardizem 300 mg q.i.d., aspirin 81 mg once a day, Keppra 750 mg twice a day, Lovenox 40 mg subcutaneously once a day, Vasotec 2.5 mg daily, Synthroid 25 mcg daily. Start Lasix at 40 mg intravenously daily, the patient did receive 20 mg IV today. Florian Crowell MD
[2017-01-24] MEDS ORDERED: Dextrose 50% VIAL Inj (50 ml) IV ONE (21:42)
--- NOTE | 2017-01-24 22:02 | CP.PCM.PN ---
Subjective - Date & Time of Evaluation Date of Evaluation: 01/24/17 Time of Evaluation: 22:00 - Subjective Subjective: Patient was hypoglycemic, on feeds of 30ml/hr, NH dose of insulin was 10 units bid, current is 15 bidac. Insulin dose changed to 20units hs starting from tomorrow night as she go 15 units this evening. Over night D10 will be run at 50mls/hr. Objective - Vital Signs/Intake and Output Vital Signs (last 24 hours): Temp Pulse Resp BP Pulse Ox 98.5 F 74 18 138/60 100 01/24/17 16:00 01/24/17 19:00 01/24/17 19:00 01/24/17 19:00 01/24/17 19:00 Intake and Output: 01/24/17 01/25/17 18:59 06:59 Intake Total 509 196.0 Output Total 570 50 Balance -61 146.0 - Medications Medications: Current Medications Acetaminophen (Tylenol 325mg Tab) 650 mg PO Q6 PRN PRN Reason: Pain, moderate (4-7) Last Admin: 01/18/17 15:23 Dose: 650 mg Aspirin (Ecotrin) 81 mg PO DAILY [facility] Last Admin: 01/24/17 10:45 Dose: 81 mg Diltiazem HCl (Cardizem) 30 mg PO QID [facility] Last Admin: 01/24/17 17:29 Dose: 30 mg Enalapril Maleate (Vasotec) 2.5 mg PO DAILY [facility] Last Admin: 01/24/17 10:55 Dose: 2.5 mg Enoxaparin Sodium (Lovenox) 40 mg SC DAILY [facility] Last Admin: 01/24/17 10:50 Dose: 40 mg Furosemide (Lasix) 40 mg IVP DAILY [facility] Azithromycin 500 mg/ Dextrose 250 mls @ 250 mls/hr IVPB DAILY [facility] Last Admin: 01/24/17 10:22 Dose: 250 mls/hr Propofol (Diprivan) 1,000 mg in 100 mls @ 1.388 mls/hr IV .Q24H PRN; Protocol; 5 MCG/KG/MIN PRN Reason: TITRATE PER MD ORDER Last Admin: 01/24/17 10:18 Dose: 20 mcg/kg/min, 5.552 mls/hr Aztreonam 2 gm/ Dextrose 100 mls @ 200 mls/hr IVPB Q8H [facility] Last Admin: 01/24/17 16:23 Dose: 200 mls/hr Insulin Aspart (Novolog) 0 unit SC Q4H [facility] PRN Reason: Protocol Last Admin: 01/24/17 17:34 Dose: 2 unit Insulin Glargine (Lantus) 20 unit SC HS [facility] Ipratropium Leakey (Atrovent) 0.5 mg IH RQ6 PRN PRN Reason: Shortness of Breath Last Admin: 01/24/17 19:36 Dose: 0.5 mg Levetiracetam (Keppra) 750 mg PO BID [facility] Last Admin: 01/24/17 17:29 Dose: 750 mg Levothyroxine Sodium (Synthroid) 25 mcg PO DAILY@0630 [facility] Last Admin: 01/24/17 06:30 Dose: 25 mcg Nystatin (Nystop Topical Powder) 1 applic TOP BID [facility] Last Admin: 01/24/17 17:35 Dose: 1 applic Pantoprazole Sodium (Protonix Inj) 40 mg IVP DAILY [facility] Last Admin: 01/24/17 10:55 Dose: 40 mg Rosuvastatin Calcium (Crestor) 20 mg PO HS [facility] Last Admin: 01/23/17 22:00 Dose: 20 mg Saccharomyces Boulardii (Florastor) 250 mg PO BID [facility] Last Admin: 01/24/17 17:29 Dose: 250 mg Spironolactone (Aldactone) 12.5 mg PO BID [facility] Last Admin: 01/24/17 17:30 Dose: 12.5 mg - Labs Labs: 01/24/17 06:20 01/24/17 06:16
--- NOTE | 2017-01-24 23:22 | CP.PCM.PN ---
Subjective - Date & Time of Evaluation Date of Evaluation: 01/24/17 Time of Evaluation: 19:00 - Subjective Subjective: Pt seen and examined, remains on mechanical ventilator, on CPAP on FiO2 of 50% , on diuresis. Patient was hypoglycemic, on feeds of 30ml/hr, NH dose of insulin was 10 units bid, current is 15 bidac. Insulin dose changed to 20units hs starting from tomorrow night as she go 15 units this evening. Over night D10 will be run at 50mls/hr. Objective - Vital Signs/Intake and Output Vital Signs (last 24 hours): Temp Pulse Resp BP Pulse Ox 98.5 F 74 18 138/60 100 01/24/17 16:00 01/24/17 19:00 01/24/17 19:00 01/24/17 19:00 01/24/17 19:00 Intake and Output: 01/24/17 01/25/17 18:59 06:59 Intake Total 509 361.5 Output Total 570 70 Balance -61 291.5 - Medications Medications: Current Medications Acetaminophen (Tylenol 325mg Tab) 650 mg PO Q6 PRN PRN Reason: Pain, moderate (4-7) Last Admin: 01/18/17 15:23 Dose: 650 mg Aspirin (Ecotrin) 81 mg PO DAILY [facility] Last Admin: 01/24/17 10:45 Dose: 81 mg Diltiazem HCl (Cardizem) 30 mg PO QID [facility] Last Admin: 01/24/17 22:00 Dose: 30 mg Enalapril Maleate (Vasotec) 2.5 mg PO DAILY [facility] Last Admin: 01/24/17 10:55 Dose: 2.5 mg Enoxaparin Sodium (Lovenox) 40 mg SC DAILY [facility] Last Admin: 01/24/17 10:50 Dose: 40 mg Furosemide (Lasix) 40 mg IVP DAILY [facility] Azithromycin 500 mg/ Dextrose 250 mls @ 250 mls/hr IVPB DAILY [facility] Last Admin: 01/24/17 10:22 Dose: 250 mls/hr Propofol (Diprivan) 1,000 mg in 100 mls @ 1.388 mls/hr IV .Q24H PRN; Protocol; 5 MCG/KG/MIN PRN Reason: TITRATE PER MD ORDER Last Admin: 01/24/17 22:33 Dose: 20 mcg/kg/min, 5.552 mls/hr Aztreonam 2 gm/ Dextrose 100 mls @ 200 mls/hr IVPB Q8H [facility] Last Admin: 01/24/17 16:23 Dose: 200 mls/hr Dextrose (Dextrose 10% In Water) 500 mls @ 50 mls/hr IV .Q10H [facility] Last Admin: 01/24/17 22:05 Dose: 50 mls/hr Insulin Aspart (Novolog) 0 unit SC Q4H [facility] PRN Reason: Protocol Last Admin: 01/24/17 22:39 Dose: Not Given Insulin Glargine (Lantus) 20 unit SC [facility] Ipratropium Allen (Atrovent) 0.5 mg IH RQ6 PRN PRN Reason: Shortness of Breath Last Admin: 01/24/17 19:36 Dose: 0.5 mg Levetiracetam (Keppra) 750 mg PO BID [facility] Last Admin: 01/24/17 17:29 Dose: 750 mg Levothyroxine Sodium (Synthroid) 25 mcg PO DAILY@0630 [facility] Last Admin: 01/24/17 06:30 Dose: 25 mcg Nystatin (Nystop Topical Powder) 1 applic TOP BID [facility] Last Admin: 01/24/17 17:35 Dose: 1 applic Pantoprazole Sodium (Protonix Inj) 40 mg IVP DAILY [facility] Last Admin: 01/24/17 10:55 Dose: 40 mg Rosuvastatin Calcium (Crestor) 20 mg PO [facility] Last Admin: 01/24/17 22:00 Dose: 20 mg Saccharomyces Boulardii (Florastor) 250 mg PO BID [facility] Last Admin: 01/24/17 17:29 Dose: 250 mg Spironolactone (Aldactone) 12.5 mg PO BID [facility] Last Admin: 01/24/17 17:30 Dose: 12.5 mg - Labs Labs: 01/24/17 06:20 01/24/17 06:16 - Constitutional Appears: No Acute Distress - Head Exam Head Exam: ATRAUMATIC, NORMAL INSPECTION, NORMOCEPHALIC - Eye Exam Eye Exam: Normal appearance - ENT Exam ENT Exam: Mucous Membranes Moist - Respiratory Exam Respiratory Exam: Clear to Ausculation Bilateral, NORMAL BREATHING PATTERN - Cardiovascular Exam Cardiovascular Exam: Tachycardia, +S1, +S2, Murmur - GI/Abdominal Exam GI & Abdominal Exam: Soft, Normal Bowel Sounds. absent: Tenderness Assessment and Plan (1) Respiratory failure Status: Acute (2) Seizure disorder Status: Acute (3) Uncontrolled blood glucose Status: Acute (4) Systolic CHF Assessment & Plan: on diuresis most ;likely ischemic cardiomyopathy with low EF Status: Acute
[2017-01-25] MEDS: (Novolog) Insulin Aspart, Recombinant 100 u/ml 10 ml vial SC SCH ×5 (02:30→17:30)
[2017-01-25 05:42] LABS: ABG ALLEN TEST POS; ARTERIAL BLOOD GAS HEMOGLOBIN 10.1 g/dL (11.7-17.4); ARTERIAL BLOOD GAS O2 SAT 99.1 % (95-98); ARTERIAL BLOOD GAS PCO2 24 mm/Hg (35-45); ARTERIAL BLOOD GAS PH 7.58 (7.35-7.45); ARTERIAL BLOOD GAS PO2 154 mm/Hg (80-100); ARTERIAL BLOOD GAS TCO2 23.2 mmol/L (22-28)
[2017-01-25] MEDS: Levothyroxine 25 MCG TAB PO SCH (05:52)
[2017-01-25 06:51] LABS: BASO # 0.1 K/uL (0.0-0.2); BASO % 1.2 % (0.0-2.0); EOS # 0.1 K/uL (0.0-0.7); LYMPH # 1.3 K/uL (1.0-4.3); LYMPH % 26.5 % (20.0-40.0); MEAN CELL VOLUME 79.9 fL (81.0-99.0); MEAN CORPUSCULAR HEMOGLOBIN 26.7 pg (27.0-31.0); MEAN CORPUSCULAR HGB CONC 33.5 g/dL (33.0-37.0); MEAN PLATELET VOLUME 8.4 fL (7.2-11.7); MONO # 0.4 K/uL (0.0-0.8); MONO % 7.3 % (0.0-10.0); NEUT # 3.2 K/uL (1.8-7.0); RBC 3.75 Mil/uL (3.80-5.20); RED CELL DISTRIBUTION WIDTH 15.2 % (11.5-14.5)
[2017-01-25 06:56] LABS: ALB/GLOB RATIO 0.7 (1.0-2.1); ALBUMIN 2.8 g/dL (3.5-5.0); ALT/SGPT 37 U/L (9-52); AST/SGOT 24 U/L (14-36); BLOOD UREA NITROGEN 24 mg/dL (7-17); CALCIUM 7.8 mg/dl (8.6-10.4); GFR AFRICAN-AMERICAN > 60; GFR NON-AFRICAN AMERICAN > 60; MAGNESIUM 1.9 mg/dL (1.6-2.3)
--- NOTE | 2017-01-25 08:33 | RAD ---
Chest x-ray single frontal view History: Intubated. Comparison: 01/24/2017 Findings: Lines and tubes in stable position. Prominent consolidative changes seen within the right upper to mid lung zone as well as the left lung base. Right hilar prominence. Bilateral rib deformities. Calcification at the aortic knob. Degenerative changes in the spine. Deformity of the right proximal humerus. Impression: No significant interval change.
[2017-01-25] MEDS: Aztreonam 2 GM in Dextrose 5% In Water 100 ML IVPB SCH ×3 (09:00→15:46)
[2017-01-25] MEDS: Propofol 10 mg/ml 1,000 MG/100 ML VIAL IV PRN ×2 (09:16→21:50)
[2017-01-25] MEDS: Saccharomyces Boulardi 250 mg Cap PO SCH ×2 (09:22→17:33)
[2017-01-25] MEDS: Enoxaparin 40 mg Syringe SC SCH (09:22)
[2017-01-25] MEDS ORDERED: Potassium & Sodium Phosphate PO ONE (10:04)
--- NOTE | 2017-01-25 10:51 | CP.CCUPN ---
<Traci Garcia - Last Filed: 01/25/17 13:22> CCU Subjective - Physician Review Subjective (Free Text): 01/25/17 13:[address] Alfaro Patient seen and examined at bedside. Patient is intubated. minimal secretions upon visiting. Repositioning. Patient is sedated on propofol drip. No acute events overnight. CCU Objective - Vital Signs / Intake & Output Vital Signs (Last 4 hours): Vital Signs Temp Pulse Resp BP Pulse Ox 01/25/17 09:48 150/80 01/25/17 09:21 157/86 H 01/25/17 08:00 97.9 F 67 19 155/69 H 100 01/25/17 07:00 62 18 155/67 H 100 Intake and Output (Last 8hrs): Intake & Output 01/24/17 01/25/17 01/25/17 22:59 06:59 14:59 Intake Total 406.5 620.6 146.6 Output Total 280 95 10 Balance 126.5 525.6 136.6 Intake: IV 100 8.3 0 Intake, IV Amount 16.5 372.3 116.6 Left Medial Port Internal 16.5 -27.7 16.6 Jugular Left Proximal Port 400 100 Internal Jugular Tube Feeding 165 240 30 Other 125 Output: Urine 280 95 10 Urethral (Couch) 280 95 10 - Physical Exam Head: Positive for: Atraumatic, Normocephalic Pupils: Positive for: PERRL Extroacular Muscles: Positive for: EOMI Mouth: Positive for: Moist Mucous Membranes, Other (intubated) Respiratory/Chest: Positive for: Decreased Breath Sounds, Rales, Other ( intubated). Negative for: Respiratory Distress, Accessory Muscle Use Cardiovascular: Positive for: Regular Rate and Rhythm, Murmurs, Normal S1, S2 Abdomen: Negative for: Tenderness, Distention, Peritoneal Signs Upper Extremity: Positive for: Normal Inspection. Negative for: Edema Lower Extremity: Positive for: Normal Inspection. Negative for: Edema Neurological: Positive for: Other (intubated) Skin: Positive for: Warm Psychiatric: Positive for: Alert, Other (intubated) - Medications Active Medications: Active Medications Generic Name Dose Route Start Last Admin Trade Name Freq PRN Reason Stop Dose Admin Acetaminophen 650 mg 01/17/17 21:49 01/18/17 15:23 Tylenol 325mg Tab PO 650 mg Q6 PRN Administration Pain, moderate (4-7) Aspirin 81 mg 01/18/17 10:00 01/25/17 09:22 Ecotrin PO 81 mg DAILY SCOTTY Administration Diltiazem HCl 30 mg 01/17/17 22:00 01/25/17 09:22 Cardizem PO 30 mg QID SCOTTY Administration Enalapril Maleate 2.5 mg 01/21/17 10:00 01/25/17 09:48 Vasotec PO 2.5 mg DAILY SCOTTY Administration Enoxaparin Sodium 40 mg 01/18/17 10:00 01/25/17 09:22 Lovenox SC 40 mg DAILY SCOTTY Administration Azithromycin 500 mg/ Dextrose 250 mls @ 250 mls/hr 01/24/17 10:00 01/25/17 09 :14 IVPB 250 mls/hr DAILY SCOTTY Administration Propofol 1,000 mg in 100 mls @ 1.388 mls/hr 01/24/17 10:00 01/25/17 09:16 Diprivan IV 30 mcg/kg/min .Q24H PRN 8.328 mls/hr TITRATE PER MD ORDER Administration Protocol 5 MCG/KG/MIN Aztreonam 2 gm/ Dextrose 100 mls @ 200 mls/hr 01/24/17 16:00 01/25/17 09:00 IVPB 200 mls/hr Q8H SCOTTY Administration Dextrose 500 mls @ 50 mls/hr 01/24/17 22:00 01/25/17 09:13 Dextrose 10% In Water IV Not Given .Q10H SCOTTY Potassium Chloride 20 meq in 100 mls @ 50 mls/hr 01/25/17 12:00 Potassium Chloride 20 Meq/100 Ml IVPB 01/25/17 17:59 Q2 SCOTTY Insulin Aspart 0 unit 01/25/17 12:00 Novolog SC Q6 SCOTTY Protocol Insulin Glargine 20 unit 01/25/17 22:00 Lantus SC HS SCOTTY Ipratropium Bentley 0.5 mg 01/18/17 15:39 01/24/17 19:36 Atrovent IH 0.5 mg RQ6 PRN Administration Shortness of Breath Levetiracetam 750 mg 01/18/17 10:00 01/25/17 09:22 Keppra PO 750 mg BID SCOTTY Administration Levothyroxine Sodium 25 mcg 01/18/17 06:30 01/25/17 05:52 Synthroid PO 25 mcg DAILY@0630 SCOTTY Administration Nystatin 1 applic 01/24/17 18:00 01/25/17 09:26 Nystop Topical Powder TOP 1 applic BID SCOTTY Administration Pantoprazole Sodium 40 mg 01/19/17 10:00 01/25/17 09:21 Protonix Inj IVP 40 mg DAILY SCOTTY Administration Rosuvastatin Calcium 20 mg 01/18/17 22:00 01/24/17 22:00 Crestor PO 20 mg HS SCOTTY Administration Saccharomyces Boulardii 250 mg 01/18/17 18:00 01/25/17 09:22 Florastor PO 250 mg BID SCOTTY Administration Spironolactone 12.5 mg 01/20/17 18:00 01/25/17 09:26 Aldactone PO 12.5 mg BID SCOTTY Administration - Patient Studies Lab Studies: Lab Studies 01/25/17 01/25/17 01/25/17 Range/Units 06:30 06:30 06:07 WBC 5.0 (4.8-10.8) K/uL RBC 3.75 L (3.80-5.20) Mil/uL Hgb 10.0 L (11.0-16.0) g/dL Hct 29.9 L (34.0-47.0) % MCV 79.9 L (81.0-99.0) fL MCH 26.7 L (27.0-31.0) pg MCHC 33.5 (33.0-37.0) g/dL RDW 15.2 H (11.5-14.5) % Plt Count 201 D (130-400) K/uL MPV 8.4 (7.2-11.7) fL Neut % (Auto) 64.0 (50.0-75.0) % Lymph % (Auto) 26.5 (20.0-40.0) % Edmunds % (Auto) 7.3 (0.0-10.0) % Eos % (Auto) 1.0 (0.0-4.0) % Baso % (Auto) 1.2 (0.0-2.0) % Neut # 3.2 (1.8-7.0) K/uL Lymph # 1.3 (1.0-4.3) K/uL Edmunds # 0.4 (0.0-0.8) K/uL Eos # 0.1 (0.0-0.7) K/uL Baso # 0.1 (0.0-0.2) K/uL Puncture Site pCO2 (35-45) mm/Hg pO2 (80-100) mm/Hg HCO3 (21-28) mmol/L ABG pH (7.35-7.45) ABG Total CO2 (22-28) mmol/L ABG O2 Saturation (95-98) % ABG Base Excess (-2.0-3.0) mmol/L ABG Hemoglobin (11.7-17.4) g/dL ABG Carboxyhemoglobin (0.5-1.5) % POC ABG HHb (Measured) (0.0-5.0) % ABG Methemoglobin (0.0-3.0) % Singh Test A-a O2 Difference mm/Hg Respiratory Index Hgb O2 Saturation (95.0-98.0) % Vent Mode Mechanical Rate FiO2 % Tidal Volume PEEP Sodium 131 L (132-148) mmol/L Potassium 3.3 L (3.6-5.2) mmol/L Chloride 107 (98-107) mmol/L Carbon Dioxide 22 (22-30) mmol/L Anion Gap 6 L (10-20) BUN 24 H (7-17) mg/dL Creatinine 0.4 L (0.7-1.2) mg/dL Est GFR ( Amer) > 60 Est GFR (Non-Af Amer) > 60 POC Glucose (mg/dL) 199 H (65-110) mg/dL Random Glucose 214 H (65-105) mg/dL Calcium 7.8 L (8.6-10.4) mg/dl Phosphorus 1.8 L (2.5-4.5) mg/dL Magnesium 1.9 (1.6-2.3) mg/dL Total Bilirubin 0.3 (0.2-1.3) mg/dL AST 24 (14-36) U/L ALT 37 (9-52) U/L Alkaline Phosphatase 110 (38-126) U/L Total Protein 7.0 (6.3-8.3) g/dL Albumin 2.8 L (3.5-5.0) g/dL Globulin 4.2 H (2.2-3.9) gm/dL Albumin/Globulin Ratio 0.7 L (1.0-2.1) 01/25/17 01/25/17 01/24/17 Range/Units 05:19 02:12 22:04 WBC (4.8-10.8) K/uL RBC (3.80-5.20) Mil/uL Hgb (11.0-16.0) g/dL Hct (34.0-47.0) % MCV (81.0-99.0) fL MCH (27.0-31.0) pg MCHC (33.0-37.0) g/dL RDW (11.5-14.5) % Plt Count (130-400) K/uL MPV (7.2-11.7) fL Neut % (Auto) (50.0-75.0) % Lymph % (Auto) (20.0-40.0) % Edmunds % (Auto) (0.0-10.0) % Eos % (Auto) (0.0-4.0) % Baso % (Auto) (0.0-2.0) % Neut # (1.8-7.0) K/uL Lymph # (1.0-4.3) K/uL Edmunds # (0.0-0.8) K/uL Eos # (0.0-0.7) K/uL Baso # (0.0-0.2) K/uL Puncture Site Lr pCO2 24 L (35-45) mm/Hg pO2 154 H (80-100) mm/Hg HCO3 26.0 (21-28) mmol/L ABG pH 7.58 H (7.35-7.45) ABG Total CO2 23.2 (22-28) mmol/L ABG O2 Saturation 99.1 H (95-98) % ABG Base Excess 1.4 (-2.0-3.0) mmol/L ABG Hemoglobin 10.1 L (11.7-17.4) g/dL ABG Carboxyhemoglobin 1.5 (0.5-1.5) % POC ABG HHb (Measured) 0.9 (0.0-5.0) % ABG Methemoglobin 1.4 (0.0-3.0) % Singh Test Pos A-a O2 Difference 173.0 mm/Hg Respiratory Index 1.1 Hgb O2 Saturation 96.3 (95.0-98.0) % Vent Mode Prvc Mechanical Rate 18 FiO2 50.0 % Tidal Volume 450 PEEP 5 Sodium (132-148) mmol/L Potassium (3.6-5.2) mmol/L Chloride (98-107) mmol/L Carbon Dioxide (22-30) mmol/L Anion Gap (10-20) BUN (7-17) mg/dL Creatinine (0.7-1.2) mg/dL Est GFR ( Amer) Est GFR (Non-Af Amer) POC Glucose (mg/dL) 139 H 142 H (65-110) mg/dL Random Glucose (65-105) mg/dL Calcium (8.6-10.4) mg/dl Phosphorus (2.5-4.5) mg/dL Magnesium (1.6-2.3) mg/dL Total Bilirubin (0.2-1.3) mg/dL AST (14-36) U/L ALT (9-52) U/L Alkaline Phosphatase (38-126) U/L Total Protein (6.3-8.3) g/dL Albumin (3.5-5.0) g/dL Globulin (2.2-3.9) gm/dL Albumin/Globulin Ratio (1.0-2.1) 01/24/17 01/24/17 01/24/17 Range/Units 21:35 21:31 17:32 WBC (4.8-10.8) K/uL RBC (3.80-5.20) Mil/uL Hgb (11.0-16.0) g/dL Hct (34.0-47.0) % MCV (81.0-99.0) fL MCH (27.0-31.0) pg MCHC (33.0-37.0) g/dL RDW (11.5-14.5) % Plt Count (130-400) K/uL MPV (7.2-11.7) fL Neut % (Auto) (50.0-75.0) % Lymph % (Auto) (20.0-40.0) % Edmunds % (Auto) (0.0-10.0) % Eos % (Auto) (0.0-4.0) % Baso % (Auto) (0.0-2.0) % Neut # (1.8-7.0) K/uL Lymph # (1.0-4.3) K/uL Edmunds # (0.0-0.8) K/uL Eos # (0.0-0.7) K/uL Baso # (0.0-0.2) K/uL Puncture Site pCO2 (35-45) mm/Hg pO2 (80-100) mm/Hg HCO3 (21-28) mmol/L ABG pH (7.35-7.45) ABG Total CO2 (22-28) mmol/L ABG O2 Saturation (95-98) % ABG Base Excess (-2.0-3.0) mmol/L ABG Hemoglobin (11.7-17.4) g/dL ABG Carboxyhemoglobin (0.5-1.5) % POC ABG HHb (Measured) (0.0-5.0) % ABG Methemoglobin (0.0-3.0) % Singh Test A-a O2 Difference mm/Hg Respiratory Index Hgb O2 Saturation (95.0-98.0) % Vent Mode Mechanical Rate FiO2 % Tidal Volume PEEP Sodium (132-148) mmol/L Potassium (3.6-5.2) mmol/L Chloride (98-107) mmol/L Carbon Dioxide (22-30) mmol/L Anion Gap (10-20) BUN (7-17) mg/dL Creatinine (0.7-1.2) mg/dL Est GFR ( Amer) Est GFR (Non-Af Amer) POC Glucose (mg/dL) 31 L* 22 L* 193 H (65-110) mg/dL Random Glucose (65-105) mg/dL Calcium (8.6-10.4) mg/dl Phosphorus (2.5-4.5) mg/dL Magnesium (1.6-2.3) mg/dL Total Bilirubin (0.2-1.3) mg/dL AST (14-36) U/L ALT (9-52) U/L Alkaline Phosphatase (38-126) U/L Total Protein (6.3-8.3) g/dL Albumin (3.5-5.0) g/dL Globulin (2.2-3.9) gm/dL Albumin/Globulin Ratio (1.0-2.1) 01/24/17 01/24/17 01/24/17 Range/Units 15:03 11:28 11:11 WBC (4.8-10.8) K/uL RBC (3.80-5.20) Mil/uL Hgb (11.0-16.0) g/dL Hct (34.0-47.0) % MCV (81.0-99.0) fL MCH (27.0-31.0) pg MCHC (33.0-37.0) g/dL RDW (11.5-14.5) % Plt Count (130-400) K/uL MPV (7.2-11.7) fL Neut % (Auto) (50.0-75.0) % Lymph % (Auto) (20.0-40.0) % Edmunds % (Auto) (0.0-10.0) % Eos % (Auto) (0.0-4.0) % Baso % (Auto) (0.0-2.0) % Neut # (1.8-7.0) K/uL Lymph # (1.0-4.3) K/uL Edmunds # (0.0-0.8) K/uL Eos # (0.0-0.7) K/uL Baso # (0.0-0.2) K/uL Puncture Site Rba pCO2 27 L (35-45) mm/Hg pO2 443 H (80-100) mm/Hg HCO3 25.5 (21-28) mmol/L ABG pH 7.52 H (7.35-7.45) ABG Total CO2 22.8 (22-28) mmol/L ABG O2 Saturation 99.5 H (95-98) % ABG Base Excess 0.7 (-2.0-3.0) mmol/L ABG Hemoglobin 15.8 (11.7-17.4) g/dL ABG Carboxyhemoglobin 1.2 (0.5-1.5) % POC ABG HHb (Measured) 0.5 (0.0-5.0) % ABG Methemoglobin 1.1 (0.0-3.0) % Singh Test Na A-a O2 Difference 236.0 mm/Hg Respiratory Index 0.5 Hgb O2 Saturation 97.2 (95.0-98.0) % Vent Mode Prvc Mechanical Rate 18 FiO2 100.0 % Tidal Volume 450 PEEP 5 Sodium (132-148) mmol/L Potassium (3.6-5.2) mmol/L Chloride (98-107) mmol/L Carbon Dioxide (22-30) mmol/L Anion Gap (10-20) BUN (7-17) mg/dL Creatinine (0.7-1.2) mg/dL Est GFR ( Amer) Est GFR (Non-Af Amer) POC Glucose (mg/dL) 297 H 271 H (65-110) mg/dL Random Glucose (65-105) mg/dL Calcium (8.6-10.4) mg/dl Phosphorus (2.5-4.5) mg/dL Magnesium (1.6-2.3) mg/dL Total Bilirubin (0.2-1.3) mg/dL AST (14-36) U/L ALT (9-52) U/L Alkaline Phosphatase (38-126) U/L Total Protein (6.3-8.3) g/dL Albumin (3.5-5.0) g/dL Globulin (2.2-3.9) gm/dL Albumin/Globulin Ratio (1.0-2.1) Laboratory Results - last 24 hr 01/24/17 01/24/17 01/24/17 11:11 11:28 15:03 WBC RBC Hgb Hct MCV MCH MCHC RDW Plt Count MPV Neut % (Auto) Lymph % (Auto) Edmunds % (Auto) Eos % (Auto) Baso % (Auto) Neut # Lymph # Edmunds # Eos # Baso # Puncture Site Rba pCO2 27 L pO2 443 H HCO3 25.5 ABG pH 7.52 H ABG Total CO2 22.8 ABG O2 Saturation 99.5 H ABG Base Excess 0.7 ABG Hemoglobin 15.8 ABG Carboxyhemoglobin 1.2 POC ABG HHb (Measured) 0.5 ABG Methemoglobin 1.1 Singh Test Na A-a O2 Difference 236.0 Respiratory Index 0.5 Hgb O2 Saturation 97.2 Vent Mode Prvc Mechanical Rate 18 FiO2 100.0 Tidal Volume 450 PEEP 5 Sodium Potassium Chloride Carbon Dioxide Anion Gap BUN Creatinine Est GFR ( Amer) Est GFR (Non-Af Amer) POC Glucose (mg/dL) 271 H 297 H Random Glucose Calcium Phosphorus Magnesium Total Bilirubin AST ALT Alkaline Phosphatase Total Protein Albumin Globulin Albumin/Globulin Ratio 01/24/17 01/24/17 01/24/17 17:32 21:31 21:35 WBC RBC Hgb Hct MCV MCH MCHC RDW Plt Count MPV Neut % (Auto) Lymph % (Auto) Edmunds % (Auto) Eos % (Auto) Baso % (Auto) Neut # Lymph # Edmunds # Eos # Baso # Puncture Site pCO2 pO2 HCO3 ABG pH ABG Total CO2 ABG O2 Saturation ABG Base Excess ABG Hemoglobin ABG Carboxyhemoglobin POC ABG HHb (Measured) ABG Methemoglobin Singh Test A-a O2 Difference Respiratory Index Hgb O2 Saturation Vent Mode Mechanical Rate FiO2 Tidal Volume PEEP Sodium Potassium Chloride Carbon Dioxide Anion Gap BUN Creatinine Est GFR ( Amer) Est GFR (Non-Af Amer) POC Glucose (mg/dL) 193 H 22 L* 31 L* Random Glucose Calcium Phosphorus Magnesium Total Bilirubin AST ALT Alkaline Phosphatase Total Protein Albumin Globulin Albumin/Globulin Ratio 01/24/17 01/25/17 01/25/17 22:04 02:12 05:19 WBC RBC Hgb Hct MCV MCH MCHC RDW Plt Count MPV Neut % (Auto) Lymph % (Auto) Edmunds % (Auto) Eos % (Auto) Baso % (Auto) Neut # Lymph # Edmunds # Eos # Baso # Puncture Site Lr pCO2 24 L pO2 154 H HCO3 26.0 ABG pH 7.58 H ABG Total CO2 23.2 ABG O2 Saturation 99.1 H ABG Base Excess 1.4 ABG Hemoglobin 10.1 L ABG Carboxyhemoglobin 1.5 POC ABG HHb (Measured) 0.9 ABG Methemoglobin 1.4 Singh Test Pos A-a O2 Difference 173.0 Respiratory Index 1.1 Hgb O2 Saturation 96.3 Vent Mode Prvc Mechanical Rate 18 FiO2 50.0 Tidal Volume 450 PEEP 5 Sodium Potassium Chloride Carbon Dioxide Anion Gap BUN Creatinine Est GFR ( Amer) Est GFR (Non-Af Amer) POC Glucose (mg/dL) 142 H 139 H Random Glucose Calcium Phosphorus Magnesium Total Bilirubin AST ALT Alkaline Phosphatase Total Protein Albumin Globulin Albumin/Globulin Ratio 01/25/17 01/25/17 01/25/17 06:07 06:30 06:30 WBC 5.0 RBC 3.75 L Hgb 10.0 L Hct 29.9 L MCV 79.9 L MCH 26.7 L MCHC 33.5 RDW 15.2 H Plt Count 201 D MPV 8.4 Neut % (Auto) 64.0 Lymph % (Auto) 26.5 Edmunds % (Auto) 7.3 Eos % (Auto) 1.0 Baso % (Auto) 1.2 Neut # 3.2 Lymph # 1.3 Edmunds # 0.4 Eos # 0.1 Baso # 0.1 Puncture Site pCO2 pO2 HCO3 ABG pH ABG Total CO2 ABG O2 Saturation ABG Base Excess ABG Hemoglobin ABG Carboxyhemoglobin POC ABG HHb (Measured) ABG Methemoglobin Singh Test A-a O2 Difference Respiratory Index Hgb O2 Saturation Vent Mode Mechanical Rate FiO2 Tidal Volume PEEP Sodium 131 L Potassium 3.3 L Chloride 107 Carbon Dioxide 22 Anion Gap 6 L BUN 24 H Creatinine 0.4 L Est GFR ( Amer) > 60 Est GFR (Non-Af Amer) > 60 POC Glucose (mg/dL) 199 H Random Glucose 214 H Calcium 7.8 L Phosphorus 1.8 L Magnesium 1.9 Total Bilirubin 0.3 AST 24 ALT 37 Alkaline Phosphatase 110 Total Protein 7.0 Albumin 2.8 L Globulin 4.2 H Albumin/Globulin Ratio 0.7 L Fingerstick Blood Sugar Results: 199 Critical Care Progress Note - Ventilator Checklist Head of Bed 30 Degrees: Yes Daily Sedation Vacation: No Daily Assessment of Readiness to Wean: No Daily Spontaneous Breathing Trial: No PUD Prophalyxis: Yes DVT Prophylaxis: Yes Oral Care with Chlorhexidine Gluconate {CHG}: No - Vent Settings MODE:: PRVC TIDAL VOLUME:: 400 RESP RATE:: 12 FIO2:: 50 PEEP:: 5 - Extremities/Vascular Does the Patient have a Central Venous Catheter?: Yes Insertion Site: Internal Jugular Vein (left) Assessment/Plan - Assessment and Plan (Free Text) Assessment: Patient is an 81 year old female presenting to the hospital with vague chest pain that needed to be intubated due to respiratory failure from hypercapnia. Patient was transferred to the ICU for further evaluation. Progress Note: Assessment Plan Neuro: History of Seizures: Keppra 750mg PO BID Sedation: Propofol 5mcg/kg/min Pain: Psych: history of Szhizophrenia Haldol 1mg Q12H Ativan 0.5mg Q6H PRN Cardio: Cardio Consult: Dr. Crowell 01/25 BNP ASA 81mg POQD Enlapril 2.5mg POQD Cardizem 30mg POQID Pulm: 01/24 intubated Vent Settings:450//15/50% 01/25 ABG: pH 7.53/ pO2 127/ pCO2 26/ pHCO3 25.2 Endo: Hypothyroid Diabetes Novolin hold Levothyroxine 25mcgPOQD Insulin SCQ6H low dose sliding scale ISS low dose q6h Glucerna 1.5 initiate 20cc/hr, increase by 5cc/hr, goal rate 35cc/hr GI: Tube Feeds: Glucerna 1.5 initiate 20cc/hr, increase by 5cc/hr, goal rate 35cc/ hr : n/a Renal: I/O: 1461.1/725 = 736.1 24 UOP 725cc/hr 01/25 repleated potassium Heme/Onc: H/H: 10.0/29.9 MSK: n/a ID: 01/25 5.0 from 7.2 f/u AM CBC Nystatin 1 top BID Tylenol 650mg POQ6H Azithromycin 500mg IVPB QD Prophylaxis: DVT: Lovenox 40mg SC QD GI: Protonix 40mg IVP QD Folic Acid 1mg PO daily Florastor 250mg PO BID discussed with Dr. Dominic Garcia DO PGY1 - Date & Time Date: 01/25/17 Time: 11:11 <Malachi Alfaro - Last Filed: 01/25/17 15:43> CCU Objective - Vital Signs / Intake & Output Vital Signs (Last 4 hours): Vital Signs Temp Pulse Resp BP Pulse Ox 01/25/17 14:00 64 18 150/70 100 01/25/17 13:00 68 19 152/70 H 100 01/25/17 12:00 98.3 F 62 18 152/70 H 100 Intake and Output (Last 8hrs): Intake & Output 01/25/17 01/25/17 01/25/17 06:59 14:59 22:59 Intake Total 620.6 826.4 Output Total 95 10 Balance 525.6 816.4 Intake: IV 8.3 0 Intake, IV Amount 372.3 616.4 Left Medial Port Internal -27.7 66.4 Jugular Left Proximal Port 400 550 Internal Jugular Tube Feeding 240 210 Output: Urine 95 10 Urethral (Couch) 95 10 - Medications Active Medications: Active Medications Generic Name Dose Route Start Last Admin Trade Name Freq PRN Reason Stop Dose Admin Acetaminophen 650 mg 01/17/17 21:49 01/18/17 15:23 Tylenol 325mg Tab PO 650 mg Q6 PRN Administration Pain, moderate (4-7) Aspirin 81 mg 01/18/17 10:00 01/25/17 09:22 Ecotrin PO 81 mg DAILY SCOTTY Administration Diltiazem HCl 30 mg 01/17/17 22:00 01/25/17 09:22 Cardizem PO 30 mg QID SCOTTY Administration Enalapril Maleate 2.5 mg 01/21/17 10:00 01/25/17 09:48 Vasotec PO 2.5 mg DAILY SCOTTY Administration Enoxaparin Sodium 40 mg 01/18/17 10:00 01/25/17 09:22 Lovenox SC 40 mg DAILY SCOTTY Administration Azithromycin 500 mg/ Dextrose 250 mls @ 250 mls/hr 01/24/17 10:00 01/25/17 09 :14 IVPB 250 mls/hr DAILY SCOTTY Administration Propofol 1,000 mg in 100 mls @ 1.388 mls/hr 01/24/17 10:00 01/25/17 09:16 Diprivan IV 30 mcg/kg/min .Q24H PRN 8.328 mls/hr TITRATE PER MD ORDER Administration Protocol 5 MCG/KG/MIN Aztreonam 2 gm/ Dextrose 100 mls @ 200 mls/hr 01/24/17 16:00 01/25/17 09:00 IVPB 200 mls/hr Q8H SCOTTY Administration Potassium Chloride 20 meq in 100 mls @ 50 mls/hr 01/25/17 12:00 Potassium Chloride 20 Meq/100 Ml IVPB 01/25/17 17:59 Q2 SCOTTY Insulin Aspart 0 unit 01/25/17 12:00 01/25/17 12:00 Novolog SC 5 unit Q6 SCOTTY Administration Protocol Insulin Glargine 20 unit 01/25/17 22:00 Lantus SC HS SCOTTY Ipratropium Bentley 0.5 mg 01/18/17 15:39 01/24/17 19:36 Atrovent IH 0.5 mg RQ6 PRN Administration Shortness of Breath Levetiracetam 750 mg 01/18/17 10:00 01/25/17 09:22 Keppra PO 750 mg BID SCOTTY Administration Levothyroxine Sodium 25 mcg 01/18/17 06:30 01/25/17 05:52 Synthroid PO 25 mcg DAILY@0630 SCOTTY Administration Nystatin 1 applic 01/24/17 18:00 01/25/17 09:26 Nystop Topical Powder TOP 1 applic BID SCOTTY Administration Pantoprazole Sodium 40 mg 01/19/17 10:00 01/25/17 09:21 Protonix Inj IVP 40 mg DAILY SCOTTY Administration Rosuvastatin Calcium 20 mg 01/18/17 22:00 01/24/17 22:00 Crestor PO 20 mg HS SCOTTY Administration Saccharomyces Boulardii 250 mg 01/18/17 18:00 01/25/17 09:22 Florastor PO 250 mg BID SCOTTY Administration Spironolactone 12.5 mg 01/20/17 18:00 01/25/17 09:26 Aldactone PO 12.5 mg BID SCOTTY Administration - Patient Studies Lab Studies: Lab Studies 01/25/17 01/25/17 01/25/17 Range/Units 13:17 11:21 09:30 WBC (4.8-10.8) K/uL RBC (3.80-5.20) Mil/uL Hgb (11.0-16.0) g/dL Hct (34.0-47.0) % MCV (81.0-99.0) fL MCH (27.0-31.0) pg MCHC (33.0-37.0) g/dL RDW (11.5-14.5) % Plt Count (130-400) K/uL MPV (7.2-11.7) fL Neut % (Auto) (50.0-75.0) % Lymph % (Auto) (20.0-40.0) % Edmunds % (Auto) (0.0-10.0) % Eos % (Auto) (0.0-4.0) % Baso % (Auto) (0.0-2.0) % Neut # (1.8-7.0) K/uL Lymph # (1.0-4.3) K/uL Edmunds # (0.0-0.8) K/uL Eos # (0.0-0.7) K/uL Baso # (0.0-0.2) K/uL Puncture Site Rb pCO2 26 L (35-45) mm/Hg pO2 127 H (80-100) mm/Hg HCO3 25.2 (21-28) mmol/L ABG pH 7.53 H (7.35-7.45) ABG Total CO2 22.5 (22-28) mmol/L ABG O2 Saturation 99.1 H (95-98) % ABG Base Excess 0.3 (-2.0-3.0) mmol/L ABG Hemoglobin (11.7-17.4) g/dL ABG Carboxyhemoglobin (0.5-1.5) % POC ABG HHb (Measured) (0.0-5.0) % ABG Methemoglobin (0.0-3.0) % Singh Test Na ABG Potassium 3.2 L (3.6-5.2) mmol/L A-a O2 Difference 197.0 mm/Hg Respiratory Index 1.6 Hgb O2 Saturation (95.0-98.0) % Glucose 352 H (65-105) mg/dl Lactate 1.0 (0.7-2.1) mmol/L Vent Mode Prvc Mechanical Rate 12 FiO2 50.0 % Tidal Volume 400 PEEP 5 Sodium 138.0 (132-148) mmol/L Potassium (3.6-5.2) mmol/L Chloride 110.0 H (98-107) mmol/L Carbon Dioxide (22-30) mmol/L Anion Gap (10-20) BUN (7-17) mg/dL Creatinine (0.7-1.2) mg/dL Est GFR ( Amer) Est GFR (Non-Af Amer) POC Glucose (mg/dL) 384 H 267 H (65-110) mg/dL Random Glucose (65-105) mg/dL Calcium (8.6-10.4) mg/dl Phosphorus (2.5-4.5) mg/dL Magnesium (1.6-2.3) mg/dL Total Bilirubin (0.2-1.3) mg/dL AST (14-36) U/L ALT (9-52) U/L Alkaline Phosphatase (38-126) U/L Total Protein (6.3-8.3) g/dL Albumin (3.5-5.0) g/dL Globulin (2.2-3.9) gm/dL Albumin/Globulin Ratio (1.0-2.1) Arterial Blood Potassium 3.2 L (3.6-5.2) mmol/L 01/25/17 01/25/17 01/25/17 Range/Units 06:30 06:30 06:07 WBC 5.0 (4.8-10.8) K/uL RBC 3.75 L (3.80-5.20) Mil/uL Hgb 10.0 L (11.0-16.0) g/dL Hct 29.9 L (34.0-47.0) % MCV 79.9 L (81.0-99.0) fL MCH 26.7 L (27.0-31.0) pg MCHC 33.5 (33.0-37.0) g/dL RDW 15.2 H (11.5-14.5) % Plt Count 201 D (130-400) K/uL MPV 8.4 (7.2-11.7) fL Neut % (Auto) 64.0 (50.0-75.0) % Lymph % (Auto) 26.5 (20.0-40.0) % Edmunds % (Auto) 7.3 (0.0-10.0) % Eos % (Auto) 1.0 (0.0-4.0) % Baso % (Auto) 1.2 (0.0-2.0) % Neut # 3.2 (1.8-7.0) K/uL Lymph # 1.3 (1.0-4.3) K/uL Edmunds # 0.4 (0.0-0.8) K/uL Eos # 0.1 (0.0-0.7) K/uL Baso # 0.1 (0.0-0.2) K/uL Puncture Site pCO2 (35-45) mm/Hg pO2 (80-100) mm/Hg HCO3 (21-28) mmol/L ABG pH (7.35-7.45) ABG Total CO2 (22-28) mmol/L ABG O2 Saturation (95-98) % ABG Base Excess (-2.0-3.0) mmol/L ABG Hemoglobin (11.7-17.4) g/dL ABG Carboxyhemoglobin (0.5-1.5) % POC ABG HHb (Measured) (0.0-5.0) % ABG Methemoglobin (0.0-3.0) % Singh Test ABG Potassium (3.6-5.2) mmol/L A-a O2 Difference mm/Hg Respiratory Index Hgb O2 Saturation (95.0-98.0) % Glucose (65-105) mg/dl Lactate (0.7-2.1) mmol/L Vent Mode Mechanical Rate FiO2 % Tidal Volume PEEP Sodium 131 L (132-148) mmol/L Potassium 3.3 L (3.6-5.2) mmol/L Chloride 107 (98-107) mmol/L Carbon Dioxide 22 (22-30) mmol/L Anion Gap 6 L (10-20) BUN 24 H (7-17) mg/dL Creatinine 0.4 L (0.7-1.2) mg/dL Est GFR ( Amer) > 60 Est GFR (Non-Af Amer) > 60 POC Glucose (mg/dL) 199 H (65-110) mg/dL Random Glucose 214 H (65-105) mg/dL Calcium 7.8 L (8.6-10.4) mg/dl Phosphorus 1.8 L (2.5-4.5) mg/dL Magnesium 1.9 (1.6-2.3) mg/dL Total Bilirubin 0.3 (0.2-1.3) mg/dL AST 24 (14-36) U/L ALT 37 (9-52) U/L Alkaline Phosphatase 110 (38-126) U/L Total Protein 7.0 (6.3-8.3) g/dL Albumin 2.8 L (3.5-5.0) g/dL Globulin 4.2 H (2.2-3.9) gm/dL Albumin/Globulin Ratio 0.7 L (1.0-2.1) Arterial Blood Potassium (3.6-5.2) mmol/L 01/25/17 01/25/17 01/24/17 Range/Units 05:19 02:12 22:04 WBC (4.8-10.8) K/uL RBC (3.80-5.20) Mil/uL Hgb (11.0-16.0) g/dL Hct (34.0-47.0) % MCV (81.0-99.0) fL MCH (27.0-31.0) pg MCHC (33.0-37.0) g/dL RDW (11.5-14.5) % Plt Count (130-400) K/uL MPV (7.2-11.7) fL Neut % (Auto) (50.0-75.0) % Lymph % (Auto) (20.0-40.0) % Edmunds % (Auto) (0.0-10.0) % Eos % (Auto) (0.0-4.0) % Baso % (Auto) (0.0-2.0) % Neut # (1.8-7.0) K/uL Lymph # (1.0-4.3) K/uL Edmunds # (0.0-0.8) K/uL Eos # (0.0-0.7) K/uL Baso # (0.0-0.2) K/uL Puncture Site Lr pCO2 24 L (35-45) mm/Hg pO2 154 H (80-100) mm/Hg HCO3 26.0 (21-28) mmol/L ABG pH 7.58 H (7.35-7.45) ABG Total CO2 23.2 (22-28) mmol/L ABG O2 Saturation 99.1 H (95-98) % ABG Base Excess 1.4 (-2.0-3.0) mmol/L ABG Hemoglobin 10.1 L (11.7-17.4) g/dL ABG Carboxyhemoglobin 1.5 (0.5-1.5) % POC ABG HHb (Measured) 0.9 (0.0-5.0) % ABG Methemoglobin 1.4 (0.0-3.0) % Singh Test Pos ABG Potassium (3.6-5.2) mmol/L A-a O2 Difference 173.0 mm/Hg Respiratory Index 1.1 Hgb O2 Saturation 96.3 (95.0-98.0) % Glucose (65-105) mg/dl Lactate (0.7-2.1) mmol/L Vent Mode Prvc Mechanical Rate 18 FiO2 50.0 % Tidal Volume 450 PEEP 5 Sodium (132-148) mmol/L Potassium (3.6-5.2) mmol/L Chloride (98-107) mmol/L Carbon Dioxide (22-30) mmol/L Anion Gap (10-20) BUN (7-17) mg/dL Creatinine (0.7-1.2) mg/dL Est GFR ( Amer) Est GFR (Non-Af Amer) POC Glucose (mg/dL) 139 H 142 H (65-110) mg/dL Random Glucose (65-105) mg/dL Calcium (8.6-10.4) mg/dl Phosphorus (2.5-4.5) mg/dL Magnesium (1.6-2.3) mg/dL Total Bilirubin (0.2-1.3) mg/dL AST (14-36) U/L ALT (9-52) U/L Alkaline Phosphatase (38-126) U/L Total Protein (6.3-8.3) g/dL Albumin (3.5-5.0) g/dL Globulin (2.2-3.9) gm/dL Albumin/Globulin Ratio (1.0-2.1) Arterial Blood Potassium (3.6-5.2) mmol/L 01/24/17 01/24/17 01/24/17 Range/Units 21:35 21:31 17:32 WBC (4.8-10.8) K/uL RBC (3.80-5.20) Mil/uL Hgb (11.0-16.0) g/dL Hct (34.0-47.0) % MCV (81.0-99.0) fL MCH (27.0-31.0) pg MCHC (33.0-37.0) g/dL RDW (11.5-14.5) % Plt Count (130-400) K/uL MPV (7.2-11.7) fL Neut % (Auto) (50.0-75.0) % Lymph % (Auto) (20.0-40.0) % Edmunds % (Auto) (0.0-10.0) % Eos % (Auto) (0.0-4.0) % Baso % (Auto) (0.0-2.0) % Neut # (1.8-7.0) K/uL Lymph # (1.0-4.3) K/uL Edmunds # (0.0-0.8) K/uL Eos # (0.0-0.7) K/uL Baso # (0.0-0.2) K/uL Puncture Site pCO2 (35-45) mm/Hg pO2 (80-100) mm/Hg HCO3 (21-28) mmol/L ABG pH (7.35-7.45) ABG Total CO2 (22-28) mmol/L ABG O2 Saturation (95-98) % ABG Base Excess (-2.0-3.0) mmol/L ABG Hemoglobin (11.7-17.4) g/dL ABG Carboxyhemoglobin (0.5-1.5) % POC ABG HHb (Measured) (0.0-5.0) % ABG Methemoglobin (0.0-3.0) % Singh Test ABG Potassium (3.6-5.2) mmol/L A-a O2 Difference mm/Hg Respiratory Index Hgb O2 Saturation (95.0-98.0) % Glucose (65-105) mg/dl Lactate (0.7-2.1) mmol/L Vent Mode Mechanical Rate FiO2 % Tidal Volume PEEP Sodium (132-148) mmol/L Potassium (3.6-5.2) mmol/L Chloride (98-107) mmol/L Carbon Dioxide (22-30) mmol/L Anion Gap (10-20) BUN (7-17) mg/dL Creatinine (0.7-1.2) mg/dL Est GFR ( Amer) Est GFR (Non-Af Amer) POC Glucose (mg/dL) 31 L* 22 L* 193 H (65-110) mg/dL Random Glucose (65-105) mg/dL Calcium (8.6-10.4) mg/dl Phosphorus (2.5-4.5) mg/dL Magnesium (1.6-2.3) mg/dL Total Bilirubin (0.2-1.3) mg/dL AST (14-36) U/L ALT (9-52) U/L Alkaline Phosphatase (38-126) U/L Total Protein (6.3-8.3) g/dL Albumin (3.5-5.0) g/dL Globulin (2.2-3.9) gm/dL Albumin/Globulin Ratio (1.0-2.1) Arterial Blood Potassium (3.6-5.2) mmol/L Laboratory Results - last 24 hr 01/24/17 01/24/17 01/24/17 17:32 21:31 21:35 WBC RBC Hgb Hct MCV MCH MCHC RDW Plt Count MPV Neut % (Auto) Lymph % (Auto) Edmunds % (Auto) Eos % (Auto) Baso % (Auto) Neut # Lymph # Edmunds # Eos # Baso # Puncture Site pCO2 pO2 HCO3 ABG pH ABG Total CO2 ABG O2 Saturation ABG Base Excess ABG Hemoglobin ABG Carboxyhemoglobin POC ABG HHb (Measured) ABG Methemoglobin Singh Test ABG Potassium A-a O2 Difference Respiratory Index Hgb O2 Saturation Glucose Lactate Vent Mode Mechanical Rate FiO2 Tidal Volume PEEP Sodium Potassium Chloride Carbon Dioxide Anion Gap BUN Creatinine Est GFR ( Amer) Est GFR (Non-Af Amer) POC Glucose (mg/dL) 193 H 22 L* 31 L* Random Glucose Calcium Phosphorus Magnesium Total Bilirubin AST ALT Alkaline Phosphatase Total Protein Albumin Globulin Albumin/Globulin Ratio Arterial Blood Potassium 01/24/17 01/25/17 01/25/17 22:04 02:12 05:19 WBC RBC Hgb Hct MCV MCH MCHC RDW Plt Count MPV Neut % (Auto) Lymph % (Auto) Edmunds % (Auto) Eos % (Auto) Baso % (Auto) Neut # Lymph # Edmunds # Eos # Baso # Puncture Site Lr pCO2 24 L pO2 154 H HCO3 26.0 ABG pH 7.58 H ABG Total CO2 23.2 ABG O2 Saturation 99.1 H ABG Base Excess 1.4 ABG Hemoglobin 10.1 L ABG Carboxyhemoglobin 1.5 POC ABG HHb (Measured) 0.9 ABG Methemoglobin 1.4 Singh Test Pos ABG Potassium A-a O2 Difference 173.0 Respiratory Index 1.1 Hgb O2 Saturation 96.3 Glucose Lactate Vent Mode Prvc Mechanical Rate 18 FiO2 50.0 Tidal Volume 450 PEEP 5 Sodium Potassium Chloride Carbon Dioxide Anion Gap BUN Creatinine Est GFR ( Amer) Est GFR (Non-Af Amer) POC Glucose (mg/dL) 142 H 139 H Random Glucose Calcium Phosphorus Magnesium Total Bilirubin AST ALT Alkaline Phosphatase Total Protein Albumin Globulin Albumin/Globulin Ratio Arterial Blood Potassium 01/25/17 01/25/17 01/25/17 06:07 06:30 06:30 WBC 5.0 RBC 3.75 L Hgb 10.0 L Hct 29.9 L MCV 79.9 L MCH 26.7 L MCHC 33.5 RDW 15.2 H Plt Count 201 D MPV 8.4 Neut % (Auto) 64.0 Lymph % (Auto) 26.5 Edmunds % (Auto) 7.3 Eos % (Auto) 1.0 Baso % (Auto) 1.2 Neut # 3.2 Lymph # 1.3 Edmunds # 0.4 Eos # 0.1 Baso # 0.1 Puncture Site pCO2 pO2 HCO3 ABG pH ABG Total CO2 ABG O2 Saturation ABG Base Excess ABG Hemoglobin ABG Carboxyhemoglobin POC ABG HHb (Measured) ABG Methemoglobin Singh Test ABG Potassium A-a O2 Difference Respiratory Index Hgb O2 Saturation Glucose Lactate Vent Mode Mechanical Rate FiO2 Tidal Volume PEEP Sodium 131 L Potassium 3.3 L Chloride 107 Carbon Dioxide 22 Anion Gap 6 L BUN 24 H Creatinine 0.4 L Est GFR ( Amer) > 60 Est GFR (Non-Af Amer) > 60 POC Glucose (mg/dL) 199 H Random Glucose 214 H Calcium 7.8 L Phosphorus 1.8 L Magnesium 1.9 Total Bilirubin 0.3 AST 24 ALT 37 Alkaline Phosphatase 110 Total Protein 7.0 Albumin 2.8 L Globulin 4.2 H Albumin/Globulin Ratio 0.7 L Arterial Blood Potassium 01/25/17 01/25/17 01/25/17 09:30 11:21 13:17 WBC RBC Hgb Hct MCV MCH MCHC RDW Plt Count MPV Neut % (Auto) Lymph % (Auto) Edmunds % (Auto) Eos % (Auto) Baso % (Auto) Neut # Lymph # Edmunds # Eos # Baso # Puncture Site Rb pCO2 26 L pO2 127 H HCO3 25.2 ABG pH 7.53 H ABG Total CO2 22.5 ABG O2 Saturation 99.1 H ABG Base Excess 0.3 ABG Hemoglobin ABG Carboxyhemoglobin POC ABG HHb (Measured) ABG Methemoglobin Singh Test Na ABG Potassium 3.2 L A-a O2 Difference 197.0 Respiratory Index 1.6 Hgb O2 Saturation Glucose 352 H Lactate 1.0 Vent Mode Prvc Mechanical Rate 12 FiO2 50.0 Tidal Volume 400 PEEP 5 Sodium 138.0 Potassium Chloride 110.0 H Carbon Dioxide Anion Gap BUN Creatinine Est GFR ( Amer) Est GFR (Non-Af Amer) POC Glucose (mg/dL) 267 H 384 H Random Glucose Calcium Phosphorus Magnesium Total Bilirubin AST ALT Alkaline Phosphatase Total Protein Albumin Globulin Albumin/Globulin Ratio Arterial Blood Potassium 3.2 L Assessment/Plan (1) Respiratory failure Current Visit: Yes Status: Acute (2) Pneumonia Current Visit: Yes Status: Acute Attending/Attestation - Attestation I have personally seen and examined this patient.: Yes I have fully participated in the care of the patient.: Yes I have reviewed all pertinent clinical information: Yes Notes (Text): 01/25/17 15:42 Patient seen and examined in the intensive care unit. Case discussed with house staff in the morning around Remains intubated on ventilatory support Tolerating feeding continue antibiotics on Lasix Follow-up proBNP and procalcitonin level Consider tracheostomy
[2017-01-25 11:24] LABS: ARTERIAL BLOOD GAS HCO3 25.2 mmol/L (21-28); ARTERIAL BLOOD GAS O2 SAT 99.1 % (95-98); ARTERIAL BLOOD GAS PCO2 26 mm/Hg (35-45); ARTERIAL BLOOD GAS PH 7.53 (7.35-7.45); ARTERIAL BLOOD GAS PO2 127 mm/Hg (80-100); ARTERIAL BLOOD GAS TCO2 22.5 mmol/L (22-28)
--- NOTE | 2017-01-25 19:13 | PN ---
SUBJECTIVE: The patient is still on a ventilator, sedated. PHYSICAL EXAMINATION VITAL SIGNS: Blood pressure 150/70, heart rate 64, temperature 98.3, respirations 18. HEENT: Pale conjunctivae. CHEST: Bilateral rhonchi. HEART: S1 and S2 regular. EXTREMITIES: Contracture deformity. LABORATORY DATA: SMA-7: Sodium 131, potassium 3.3, chloride 107, CO2 of 22, glucose 214, BUN 24, creatinine 0.4. Hemoglobin and hematocrit 10 and 29.9, white count and platelet count are within normal limit. Today's chest x-ray report, no significant interval change. ASSESSMENT: 1. Respiratory failure. 2. History of paroxysmal reentrant supraventricular tachycardia. 3. Cardiomyopathy. 4. Anemia. 5. Hyponatremia and hypokalemia. 6. Uncontrolled diabetes mellitus. RECOMMENDATIONS: Continue Aldactone 12.5 mg twice a day. Continue IV Zithromax, IV Azactam. Continue enalapril 2.5 mg daily, Synthroid 25 mcg once a day, Crestor 20 mg at bedtime, Cardizem at 30 mg q.i.d. The patient is currently receiving IV potassium chloride replacement totalling at 60 mEq. Florian Crowell MD
[2017-01-25] MEDS: Ipratropium 0.02% Inhal Soln (0.5 mg/2.5 ml) UD IH PRN (20:18)
[2017-01-25] MEDS: (Lantus) Insulin Glargine, Recombinant SC SCH (21:08)
[2017-01-25 22:02] LABS: LEVETIRACETAM 54.5 mcg/mL
[2017-01-26 05:49] LABS: ABG ALLEN TEST POS; ARTERIAL BLOOD GAS HEMOGLOBIN 9.7 g/dL (11.7-17.4); ARTERIAL BLOOD GAS PCO2 32 mm/Hg (35-45); ARTERIAL BLOOD GAS PH 7.51 (7.35-7.45); ARTERIAL BLOOD GAS PO2 108 mm/Hg (80-100); ARTERIAL BLOOD GAS TCO2 26.5 mmol/L (22-28)
[2017-01-26] MEDS ORDERED: Dextrose 50% VIAL Inj (50 ml) IV ONE (06:13)
[2017-01-26 06:35] LABS: BASO # 0.1 K/uL (0.0-0.2); BASO % 1.1 % (0.0-2.0); EOS # 0.2 K/uL (0.0-0.7); EOS % 2.4 % (0.0-4.0); HEMOGLOBIN 9.7 g/dL (11.0-16.0); LYMPH # 1.6 K/uL (1.0-4.3); LYMPH % 25.1 % (20.0-40.0); MEAN CELL VOLUME 80.3 fL (81.0-99.0); MEAN CORPUSCULAR HGB CONC 33.6 g/dL (33.0-37.0); MEAN PLATELET VOLUME 8.5 fL (7.2-11.7); MONO # 0.6 K/uL (0.0-0.8); MONO % 8.8 % (0.0-10.0); NEUT # 4.1 K/uL (1.8-7.0); NEUT % 62.6 % (50.0-75.0); NRBC % 0.1 % (0.0-2.0); RBC 3.61 Mil/uL (3.80-5.20); RED CELL DISTRIBUTION WIDTH 14.9 % (11.5-14.5); WHITE BLOOD COUNT 6.6 K/uL (4.8-10.8)
[2017-01-26 06:50] LABS: ALB/GLOB RATIO 0.9 (1.0-2.1); BLOOD UREA NITROGEN 25 mg/dL (7-17); GFR AFRICAN-AMERICAN > 60; GFR NON-AFRICAN AMERICAN > 60; MAGNESIUM 1.9 mg/dL (1.6-2.3)
[2017-01-26] MEDS: Levothyroxine 25 MCG TAB PO SCH (06:52)
[2017-01-26] MEDS: (Novolog) Insulin Aspart, Recombinant 100 u/ml 10 ml vial SC SCH ×4 (06:54→18:20)
[2017-01-26] MEDS: Aztreonam 2 GM in Dextrose 5% In Water 100 ML IVPB SCH ×3 (07:30→16:05)
[2017-01-26] MEDS: Saccharomyces Boulardi 250 mg Cap PO SCH ×2 (10:36→18:19)
[2017-01-26] MEDS: Enoxaparin 40 mg Syringe SC SCH (10:37)
--- NOTE | 2017-01-26 11:09 | CP.PCM.PN ---
Objective - Vital Signs/Intake and Output Vital Signs (last 24 hours): Temp Pulse Resp BP Pulse Ox 98.3 F 89 13 135/72 100 01/26/17 08:00 01/26/17 09:00 01/26/17 09:00 01/26/17 10:57 01/26/17 09:00 Intake and Output: 01/26/17 01/26/17 06:59 18:59 Intake Total 191.3 Output Total 760 Balance -568.7 - Medications Medications: Current Medications Acetaminophen (Tylenol 325mg Tab) 650 mg PO Q6 PRN PRN Reason: Pain, moderate (4-7) Last Admin: 01/18/17 15:23 Dose: 650 mg Aspirin (Ecotrin) 81 mg PO DAILY [facility] Last Admin: 01/26/17 10:37 Dose: 81 mg Diltiazem HCl (Cardizem) 30 mg PO QID [facility] Last Admin: 01/25/17 21:07 Dose: 30 mg Enalapril Maleate (Vasotec) 2.5 mg PO DAILY [facility] Last Admin: 01/26/17 10:57 Dose: 2.5 mg Enoxaparin Sodium (Lovenox) 40 mg SC DAILY [facility] Last Admin: 01/26/17 10:37 Dose: 40 mg Azithromycin 500 mg/ Dextrose 250 mls @ 250 mls/hr IVPB DAILY [facility] Last Admin: 01/26/17 10:40 Dose: 250 mls/hr Propofol (Diprivan) 1,000 mg in 100 mls @ 1.388 mls/hr IV .Q24H PRN; Protocol; 5 MCG/KG/MIN PRN Reason: TITRATE PER MD ORDER Last Admin: 01/25/17 21:50 Dose: 30 mcg/kg/min, 8.328 mls/hr Aztreonam 2 gm/ Dextrose 100 mls @ 200 mls/hr IVPB Q8H [facility] Last Admin: 01/26/17 00:00 Dose: 200 mls/hr Insulin Aspart (Novolog) 0 unit SC Q6 SCOTTY PRN Reason: Protocol Last Admin: 01/26/17 06:54 Dose: Not Given Insulin Glargine (Lantus) 20 unit SC HS [facility] Last Admin: 01/25/17 21:08 Dose: 20 u Ipratropium [place] (Atrovent) 0.5 mg IH RQ6 PRN PRN Reason: Shortness of Breath Last Admin: 01/25/17 20:18 Dose: 0.5 mg Levetiracetam (Keppra) 750 mg PO BID [facility] Last Admin: 01/26/17 10:36 Dose: 750 mg Levothyroxine Sodium (Synthroid) 25 mcg PO DAILY@0630 [facility] Last Admin: 01/26/17 06:52 Dose: 25 mcg Nystatin (Nystop Topical Powder) 1 applic TOP BID [facility] Last Admin: 01/26/17 10:38 Dose: 1 applic Pantoprazole Sodium (Protonix Inj) 40 mg IVP DAILY [facility] Last Admin: 01/26/17 10:37 Dose: 40 mg Rosuvastatin Calcium (Crestor) 20 mg PO HS [facility] Last Admin: 01/25/17 21:07 Dose: 20 mg Saccharomyces Boulardii (Florastor) 250 mg PO BID [facility] Last Admin: 01/26/17 10:36 Dose: 250 mg Spironolactone (Aldactone) 12.5 mg PO BID [facility] Last Admin: 01/25/17 17:34 Dose: 12.5 mg - Labs Labs: 01/26/17 06:26 01/26/17 06:26 Assessment and Plan - Assessment and Plan (Free Text) Assessment: 01/26/17 ABG 7.51, pCO2 32, pO2 108, pHCO3 27.0
--- NOTE | 2017-01-26 11:11 | CP.CCUPN ---
CCU Subjective - Physician Review Subjective (Free Text): 01/26/17 11:[address] Ledesma, patient seen and examined at bedside. Patient is GCS 10T ([id number]). Patient continues to have secretions from her mouth 01/26/17 16:27 Critical Care Time Spent (in minutes): 30 CCU Objective - Vital Signs / Intake & Output Vital Signs (Last 4 hours): Vital Signs Temp Pulse Resp BP Pulse Ox 01/26/17 10:57 135/72 01/26/17 09:00 89 13 141/89 100 01/26/17 08:00 98.3 F 80 18 136/57 L 100 Intake and Output (Last 8hrs): Intake & Output 01/25/17 01/26/17 01/26/17 22:59 06:59 14:59 Intake Total 358.1 66.4 Output Total 715 490 Balance -356.9 -423.6 Weight 104 lb Intake: IV 100 Intake, IV Amount 258.1 66.4 Left Medial Port Internal 58.1 66.4 Jugular Left Proximal Port 200 Internal Jugular Output: Urine 715 490 Urethral (Couch) 715 490 Other: # Bowel Movements 1 - Physical Exam Head: Positive for: Atraumatic, Normocephalic Pupils: Positive for: PERRL Extroacular Muscles: Positive for: EOMI Mouth: Positive for: Moist Mucous Membranes, Other (intubated) Respiratory/Chest: Positive for: Wheezes, Decreased Breath Sounds, Rhonchi, Other (intubated). Negative for: Respiratory Distress, Accessory Muscle Use Cardiovascular: Positive for: Regular Rate and Rhythm, Murmurs, Normal S1, S2 Abdomen: Negative for: Tenderness, Distention, Peritoneal Signs Upper Extremity: Positive for: Normal Inspection. Negative for: Edema Lower Extremity: Positive for: Normal Inspection. Negative for: Edema Neurological: Positive for: Other (intubated) Skin: Positive for: Warm Psychiatric: Positive for: Alert, Other (intubated) - Medications Active Medications: Active Medications Generic Name Dose Route Start Last Admin Trade Name Freq PRN Reason Stop Dose Admin Acetaminophen 650 mg 01/17/17 21:49 01/18/17 15:23 Tylenol 325mg Tab PO 650 mg Q6 PRN Administration Pain, moderate (4-7) Aspirin 81 mg 01/18/17 10:00 01/26/17 10:37 Ecotrin PO 81 mg DAILY SCOTTY Administration Diltiazem HCl 30 mg 01/17/17 22:00 01/25/17 21:07 Cardizem PO 30 mg QID SCOTTY Administration Enalapril Maleate 2.5 mg 01/21/17 10:00 01/26/17 10:57 Vasotec PO 2.5 mg DAILY SCOTTY Administration Enoxaparin Sodium 40 mg 01/18/17 10:00 01/26/17 10:37 Lovenox SC 40 mg DAILY SCOTTY Administration Azithromycin 500 mg/ Dextrose 250 mls @ 250 mls/hr 01/24/17 10:00 01/26/17 10 :40 IVPB 250 mls/hr DAILY SCOTTY Administration Propofol 1,000 mg in 100 mls @ 1.388 mls/hr 01/24/17 10:00 01/25/17 21:50 Diprivan IV 30 mcg/kg/min .Q24H PRN 8.328 mls/hr TITRATE PER MD ORDER Administration Protocol 5 MCG/KG/MIN Aztreonam 2 gm/ Dextrose 100 mls @ 200 mls/hr 01/24/17 16:00 01/26/17 00:00 IVPB 200 mls/hr Q8H SCOTTY Administration Insulin Aspart 0 unit 01/25/17 12:00 01/26/17 06:54 Novolog SC Not Given Q6 [facility]–1983 Protocol Insulin Glargine 20 unit 01/25/17 22:00 01/25/17 21:08 Lantus SC 20 u HS SCOTTY Administration Ipratropium Latimer 0.5 mg 01/18/17 15:39 01/25/17 20:18 Atrovent IH 0.5 mg RQ6 PRN Administration Shortness of Breath Levetiracetam 750 mg 01/18/17 10:00 01/26/17 10:36 Keppra PO 750 mg BID SCOTTY Administration Levothyroxine Sodium 25 mcg 01/18/17 06:30 01/26/17 06:52 Synthroid PO 25 mcg DAILY@0630 SCOTTY Administration Nystatin 1 applic 01/24/17 18:00 01/26/17 10:38 Nystop Topical Powder TOP 1 applic BID SCOTTY Administration Pantoprazole Sodium 40 mg 01/19/17 10:00 01/26/17 10:37 Protonix Inj IVP 40 mg DAILY SCOTTY Administration Rosuvastatin Calcium 20 mg 01/18/17 22:00 01/25/17 21:07 Crestor PO 20 mg HS SCOTTY Administration Saccharomyces Boulardii 250 mg 01/18/17 18:00 01/26/17 10:36 Florastor PO 250 mg BID SCOTTY Administration Spironolactone 12.5 mg 01/20/17 18:00 01/25/17 17:34 Aldactone PO 12.5 mg BID SCOTTY Administration - Patient Studies Lab Studies: Lab Studies 01/26/17 01/26/17 01/26/17 Range/Units 06:33 06:26 06:26 WBC 6.6 (4.8-10.8) K/uL RBC 3.61 L (3.80-5.20) Mil/uL Hgb 9.7 L (11.0-16.0) g/dL Hct 29.0 L (34.0-47.0) % MCV 80.3 L (81.0-99.0) fL MCH 27.0 (27.0-31.0) pg MCHC 33.6 (33.0-37.0) g/dL RDW 14.9 H (11.5-14.5) % Plt Count 208 (130-400) K/uL MPV 8.5 (7.2-11.7) fL Neut % (Auto) 62.6 (50.0-75.0) % Lymph % (Auto) 25.1 (20.0-40.0) % [place] % (Auto) 8.8 (0.0-10.0) % Eos % (Auto) 2.4 (0.0-4.0) % Baso % (Auto) 1.1 (0.0-2.0) % Neut # 4.1 (1.8-7.0) K/uL Lymph # 1.6 (1.0-4.3) K/uL [place] # 0.6 (0.0-0.8) K/uL Eos # 0.2 (0.0-0.7) K/uL Baso # 0.1 (0.0-0.2) K/uL Puncture Site pCO2 (35-45) mm/Hg pO2 (80-100) mm/Hg HCO3 (21-28) mmol/L ABG pH (7.35-7.45) ABG Total CO2 (22-28) mmol/L ABG O2 Saturation (95-98) % ABG Base Excess (-2.0-3.0) mmol/L ABG Hemoglobin (11.7-17.4) g/dL ABG Carboxyhemoglobin (0.5-1.5) % POC ABG HHb (Measured) (0.0-5.0) % ABG Methemoglobin (0.0-3.0) % Singh Test ABG Potassium (3.6-5.2) mmol/L A-a O2 Difference mm/Hg Respiratory Index Hgb O2 Saturation (95.0-98.0) % Sodium 133 (132-148) mmol/l Chloride 104 (98-107) mmol/L Glucose (65-105) mg/dl Lactate (0.7-2.1) mmol/L Vent Mode Mechanical Rate FiO2 % Tidal Volume PEEP Potassium 3.9 (3.6-5.2) mmol/L Carbon Dioxide 28 (22-30) mmol/L Anion Gap 5 L (10-20) BUN 25 H (7-17) mg/dL Creatinine 0.5 L (0.7-1.2) mg/dL Est GFR ( Amer) > 60 Est GFR (Non-Af Amer) > 60 POC Glucose (mg/dL) 172 H (65-110) mg/dL Random Glucose 60 L (65-105) mg/dL Calcium 7.6 L (8.6-10.4) mg/dl Phosphorus 2.3 L (2.5-4.5) mg/dL Magnesium 1.9 (1.6-2.3) mg/dL Total Bilirubin 0.4 (0.2-1.3) mg/dL AST 33 (14-36) U/L ALT 21 (9-52) U/L Alkaline Phosphatase 109 (38-126) U/L Total Protein 5.9 L (6.3-8.3) g/dL Albumin 2.9 L (3.5-5.0) g/dL Globulin 3.1 (2.2-3.9) gm/dL Albumin/Globulin Ratio 0.9 L (1.0-2.1) Arterial Blood Potassium (3.6-5.2) mmol/L Levetiracetam mcg/mL 01/26/17 01/26/17 01/26/17 Range/Units 06:09 06:07 05:31 WBC (4.8-10.8) K/uL RBC (3.80-5.20) Mil/uL Hgb (11.0-16.0) g/dL Hct (34.0-47.0) % MCV (81.0-99.0) fL MCH (27.0-31.0) pg MCHC (33.0-37.0) g/dL RDW (11.5-14.5) % Plt Count (130-400) K/uL MPV (7.2-11.7) fL Neut % (Auto) (50.0-75.0) % Lymph % (Auto) (20.0-40.0) % [place] % (Auto) (0.0-10.0) % Eos % (Auto) (0.0-4.0) % Baso % (Auto) (0.0-2.0) % Neut # (1.8-7.0) K/uL Lymph # (1.0-4.3) K/uL [place] # (0.0-0.8) K/uL Eos # (0.0-0.7) K/uL Baso # (0.0-0.2) K/uL Puncture Site Lr pCO2 32 L (35-45) mm/Hg pO2 108 H (80-100) mm/Hg HCO3 27.0 (21-28) mmol/L ABG pH 7.51 H (7.35-7.45) ABG Total CO2 26.5 (22-28) mmol/L ABG O2 Saturation 99.0 H (95-98) % ABG Base Excess 2.7 (-2.0-3.0) mmol/L ABG Hemoglobin 9.7 L (11.7-17.4) g/dL ABG Carboxyhemoglobin 1.4 (0.5-1.5) % POC ABG HHb (Measured) 1.0 (0.0-5.0) % ABG Methemoglobin 1.0 (0.0-3.0) % Singh Test Pos ABG Potassium (3.6-5.2) mmol/L A-a O2 Difference 209.0 mm/Hg Respiratory Index 1.9 Hgb O2 Saturation 96.5 (95.0-98.0) % Sodium (132-148) mmol/l Chloride (98-107) mmol/L Glucose (65-105) mg/dl Lactate (0.7-2.1) mmol/L Vent Mode Prvc Mechanical Rate 12 FiO2 50.0 % Tidal Volume 400 PEEP 5 Potassium (3.6-5.2) mmol/L Carbon Dioxide (22-30) mmol/L Anion Gap (10-20) BUN (7-17) mg/dL Creatinine (0.7-1.2) mg/dL Est GFR ( Amer) Est GFR (Non-Af Amer) POC Glucose (mg/dL) 67 55 L (65-110) mg/dL Random Glucose (65-105) mg/dL Calcium (8.6-10.4) mg/dl Phosphorus (2.5-4.5) mg/dL Magnesium (1.6-2.3) mg/dL Total Bilirubin (0.2-1.3) mg/dL AST (14-36) U/L ALT (9-52) U/L Alkaline Phosphatase (38-126) U/L Total Protein (6.3-8.3) g/dL Albumin (3.5-5.0) g/dL Globulin (2.2-3.9) gm/dL Albumin/Globulin Ratio (1.0-2.1) Arterial Blood Potassium (3.6-5.2) mmol/L Levetiracetam mcg/mL 01/25/17 01/25/17 01/25/17 Range/Units 23:42 17:27 13:17 WBC (4.8-10.8) K/uL RBC (3.80-5.20) Mil/uL Hgb (11.0-16.0) g/dL Hct (34.0-47.0) % MCV (81.0-99.0) fL MCH (27.0-31.0) pg MCHC (33.0-37.0) g/dL RDW (11.5-14.5) % Plt Count (130-400) K/uL MPV (7.2-11.7) fL Neut % (Auto) (50.0-75.0) % Lymph % (Auto) (20.0-40.0) % [place] % (Auto) (0.0-10.0) % Eos % (Auto) (0.0-4.0) % Baso % (Auto) (0.0-2.0) % Neut # (1.8-7.0) K/uL Lymph # (1.0-4.3) K/uL [place] # (0.0-0.8) K/uL Eos # (0.0-0.7) K/uL Baso # (0.0-0.2) K/uL Puncture Site pCO2 (35-45) mm/Hg pO2 (80-100) mm/Hg HCO3 (21-28) mmol/L ABG pH (7.35-7.45) ABG Total CO2 (22-28) mmol/L ABG O2 Saturation (95-98) % ABG Base Excess (-2.0-3.0) mmol/L ABG Hemoglobin (11.7-17.4) g/dL ABG Carboxyhemoglobin (0.5-1.5) % POC ABG HHb (Measured) (0.0-5.0) % ABG Methemoglobin (0.0-3.0) % Singh Test ABG Potassium (3.6-5.2) mmol/L A-a O2 Difference mm/Hg Respiratory Index Hgb O2 Saturation (95.0-98.0) % Sodium (132-148) mmol/l Chloride (98-107) mmol/L Glucose (65-105) mg/dl Lactate (0.7-2.1) mmol/L Vent Mode Mechanical Rate FiO2 % Tidal Volume PEEP Potassium (3.6-5.2) mmol/L Carbon Dioxide (22-30) mmol/L Anion Gap (10-20) BUN (7-17) mg/dL Creatinine (0.7-1.2) mg/dL Est GFR ( Amer) Est GFR (Non-Af Amer) POC Glucose (mg/dL) 204 H 410 H* 384 H (65-110) mg/dL Random Glucose (65-105) mg/dL Calcium (8.6-10.4) mg/dl Phosphorus (2.5-4.5) mg/dL Magnesium (1.6-2.3) mg/dL Total Bilirubin (0.2-1.3) mg/dL AST (14-36) U/L ALT (9-52) U/L Alkaline Phosphatase (38-126) U/L Total Protein (6.3-8.3) g/dL Albumin (3.5-5.0) g/dL Globulin (2.2-3.9) gm/dL Albumin/Globulin Ratio (1.0-2.1) Arterial Blood Potassium (3.6-5.2) mmol/L Levetiracetam mcg/mL 01/25/17 01/25/17 01/22/17 Range/Units 11:21 09:30 10:55 WBC (4.8-10.8) K/uL RBC (3.80-5.20) Mil/uL Hgb (11.0-16.0) g/dL Hct (34.0-47.0) % MCV (81.0-99.0) fL MCH (27.0-31.0) pg MCHC (33.0-37.0) g/dL RDW (11.5-14.5) % Plt Count (130-400) K/uL MPV (7.2-11.7) fL Neut % (Auto) (50.0-75.0) % Lymph % (Auto) (20.0-40.0) % [place] % (Auto) (0.0-10.0) % Eos % (Auto) (0.0-4.0) % Baso % (Auto) (0.0-2.0) % Neut # (1.8-7.0) K/uL Lymph # (1.0-4.3) K/uL [place] # (0.0-0.8) K/uL Eos # (0.0-0.7) K/uL Baso # (0.0-0.2) K/uL Puncture Site Rb pCO2 26 L (35-45) mm/Hg pO2 127 H (80-100) mm/Hg HCO3 25.2 (21-28) mmol/L ABG pH 7.53 H (7.35-7.45) ABG Total CO2 22.5 (22-28) mmol/L ABG O2 Saturation 99.1 H (95-98) % ABG Base Excess 0.3 (-2.0-3.0) mmol/L ABG Hemoglobin (11.7-17.4) g/dL ABG Carboxyhemoglobin (0.5-1.5) % POC ABG HHb (Measured) (0.0-5.0) % ABG Methemoglobin (0.0-3.0) % Singh Test Na ABG Potassium 3.2 L (3.6-5.2) mmol/L A-a O2 Difference 197.0 mm/Hg Respiratory Index 1.6 Hgb O2 Saturation (95.0-98.0) % Sodium 138.0 (132-148) mmol/l Chloride 110.0 H (98-107) mmol/L Glucose 352 H (65-105) mg/dl Lactate 1.0 (0.7-2.1) mmol/L Vent Mode Prvc Mechanical Rate 12 FiO2 50.0 % Tidal Volume 400 PEEP 5 Potassium (3.6-5.2) mmol/L Carbon Dioxide (22-30) mmol/L Anion Gap (10-20) BUN (7-17) mg/dL Creatinine (0.7-1.2) mg/dL Est GFR ( Amer) Est GFR (Non-Af Amer) POC Glucose (mg/dL) 267 H (65-110) mg/dL Random Glucose (65-105) mg/dL Calcium (8.6-10.4) mg/dl Phosphorus (2.5-4.5) mg/dL Magnesium (1.6-2.3) mg/dL Total Bilirubin (0.2-1.3) mg/dL AST (14-36) U/L ALT (9-52) U/L Alkaline Phosphatase (38-126) U/L Total Protein (6.3-8.3) g/dL Albumin (3.5-5.0) g/dL Globulin (2.2-3.9) gm/dL Albumin/Globulin Ratio (1.0-2.1) Arterial Blood Potassium 3.2 L (3.6-5.2) mmol/L Levetiracetam 54.5 mcg/mL Laboratory Results - last 24 hr 01/22/17 01/25/17 01/25/17 10:55 09:30 11:21 WBC RBC Hgb Hct MCV MCH MCHC RDW Plt Count MPV Neut % (Auto) Lymph % (Auto) [place] % (Auto) Eos % (Auto) Baso % (Auto) Neut # Lymph # [place] # Eos # Baso # Puncture Site Rb pCO2 26 L pO2 127 H HCO3 25.2 ABG pH 7.53 H ABG Total CO2 22.5 ABG O2 Saturation 99.1 H ABG Base Excess 0.3 ABG Hemoglobin ABG Carboxyhemoglobin POC ABG HHb (Measured) ABG Methemoglobin Singh Test Na ABG Potassium 3.2 L A-a O2 Difference 197.0 Respiratory Index 1.6 Hgb O2 Saturation Sodium 138.0 Chloride 110.0 H Glucose 352 H Lactate 1.0 Vent Mode Prvc Mechanical Rate 12 FiO2 50.0 Tidal Volume 400 PEEP 5 Potassium Carbon Dioxide Anion Gap BUN Creatinine Est GFR ( Amer) Est GFR (Non-Af Amer) POC Glucose (mg/dL) 267 H Random Glucose Calcium Phosphorus Magnesium Total Bilirubin AST ALT Alkaline Phosphatase Total Protein Albumin Globulin Albumin/Globulin Ratio Arterial Blood Potassium 3.2 L Levetiracetam 54.5 01/25/17 01/25/17 01/25/17 13:17 17:27 23:42 WBC RBC Hgb Hct MCV MCH MCHC RDW Plt Count MPV Neut % (Auto) Lymph % (Auto) [place] % (Auto) Eos % (Auto) Baso % (Auto) Neut # Lymph # [place] # Eos # Baso # Puncture Site pCO2 pO2 HCO3 ABG pH ABG Total CO2 ABG O2 Saturation ABG Base Excess ABG Hemoglobin ABG Carboxyhemoglobin POC ABG HHb (Measured) ABG Methemoglobin Singh Test ABG Potassium A-a O2 Difference Respiratory Index Hgb O2 Saturation Sodium Chloride Glucose Lactate Vent Mode Mechanical Rate FiO2 Tidal Volume PEEP Potassium Carbon Dioxide Anion Gap BUN Creatinine Est GFR ( Amer) Est GFR (Non-Af Amer) POC Glucose (mg/dL) 384 H 410 H* 204 H Random Glucose Calcium Phosphorus Magnesium Total Bilirubin AST ALT Alkaline Phosphatase Total Protein Albumin Globulin Albumin/Globulin Ratio Arterial Blood Potassium Levetiracetam 01/26/17 01/26/17 01/26/17 05:31 06:07 06:09 WBC RBC Hgb Hct MCV MCH MCHC RDW Plt Count MPV Neut % (Auto) Lymph % (Auto) [place] % (Auto) Eos % (Auto) Baso % (Auto) Neut # Lymph # [place] # Eos # Baso # Puncture Site Lr pCO2 32 L pO2 108 H HCO3 27.0 ABG pH 7.51 H ABG Total CO2 26.5 ABG O2 Saturation 99.0 H ABG Base Excess 2.7 ABG Hemoglobin 9.7 L ABG Carboxyhemoglobin 1.4 POC ABG HHb (Measured) 1.0 ABG Methemoglobin 1.0 Singh Test Pos ABG Potassium A-a O2 Difference 209.0 Respiratory Index 1.9 Hgb O2 Saturation 96.5 Sodium Chloride Glucose Lactate Vent Mode Prvc Mechanical Rate 12 FiO2 50.0 Tidal Volume 400 PEEP 5 Potassium Carbon Dioxide Anion Gap BUN Creatinine Est GFR ( Amer) Est GFR (Non-Af Amer) POC Glucose (mg/dL) 55 L 67 Random Glucose Calcium Phosphorus Magnesium Total Bilirubin AST ALT Alkaline Phosphatase Total Protein Albumin Globulin Albumin/Globulin Ratio Arterial Blood Potassium Levetiracetam 01/26/17 01/26/17 01/26/17 06:26 06:26 06:33 WBC 6.6 RBC 3.61 L Hgb 9.7 L Hct 29.0 L MCV 80.3 L MCH 27.0 MCHC 33.6 RDW 14.9 H Plt Count 208 MPV 8.5 Neut % (Auto) 62.6 Lymph % (Auto) 25.1 [place] % (Auto) 8.8 Eos % (Auto) 2.4 Baso % (Auto) 1.1 Neut # 4.1 Lymph # 1.6 [place] # 0.6 Eos # 0.2 Baso # 0.1 Puncture Site pCO2 pO2 HCO3 ABG pH ABG Total CO2 ABG O2 Saturation ABG Base Excess ABG Hemoglobin ABG Carboxyhemoglobin POC ABG HHb (Measured) ABG Methemoglobin Singh Test ABG Potassium A-a O2 Difference Respiratory Index Hgb O2 Saturation Sodium 133 Chloride 104 Glucose Lactate Vent Mode Mechanical Rate FiO2 Tidal Volume PEEP Potassium 3.9 Carbon Dioxide 28 Anion Gap 5 L BUN 25 H Creatinine 0.5 L Est GFR ( Amer) > 60 Est GFR (Non-Af Amer) > 60 POC Glucose (mg/dL) 172 H Random Glucose 60 L Calcium 7.6 L Phosphorus 2.3 L Magnesium 1.9 Total Bilirubin 0.4 AST 33 ALT 21 Alkaline Phosphatase 109 Total Protein 5.9 L Albumin 2.9 L Globulin 3.1 Albumin/Globulin Ratio 0.9 L Arterial Blood Potassium Levetiracetam Fingerstick Blood Sugar Results: 204 Critical Care Progress Note - Ventilator Checklist Head of Bed 30 Degrees: Yes Assessment/Plan - Assessment and Plan (Free Text) Assessment: Patient is an 81 year old female presenting to the hospital with vague chest pain that needed to be intubated due to respiratory failure from hypercapnia. Patient was transferred to the ICU for further evaluation. Progress Note: Assessment Plan Neuro: History of Seizures: Keppra 750mg PO BID Sedation: Propofol 5mcg/kg/min Pain: Psych: history of Szhizophrenia Haldol 1mg Q12H Ativan 0.5mg Q6H PRN Cardio: 01/08 Echo: Grade I abnormal relaxation pattern. global hypokinesis, systolic function is mild to moderately reduced. Left atrium is mildly dilated. severe pulmonary htn. mildly dilated left atrium, severe left ventricular dysfunction. EF 37% Cardio Consult: Dr. Crowell 01/25 BNP ASA 81mg POQD Enlapril 2.5mg POQD -increased to 5mg 01/26 Cardizem 30mg POQID Metoprolol tartrate 25mg POBID Enlapril 5mg POQD Pulm: 01/24 intubated 01/26 CXR: increased pleural effusions Vent Settings:450///50% 01/25 ABG: pH 7.53/ pO2 127/ pCO2 26/ pHCO3 25.2 01/26 ABG: pH 7.51/ pCO2 32/ pO2 108/ pHCO3 27.0 01/26 CXR: increased pleural effusions Albuterol 1.25mg INH RQ6H SCOTTY Lasix 40mg IVP STAT Endo: Hypothyroid Diabetes Novolin hold Levothyroxine 25mcgPOQD Insulin SCQ6H low dose sliding scale ISS low dose q6h Glucerna 1.5 initiate 20cc/hr, increase by 5cc/hr, goal rate 35cc/hr GI: Tube Feeds: Glucerna 1.5 initiate 20cc/hr, increase by 5cc/hr, goal rate 35cc/ hr : n/a Renal: I/O: 1461.1/725 = 736.1 24 UOP 725cc/hr 12/19 repleted potassium Heme/Onc: 01/25 H/H: 10.0/29.9 01/26 H/H 9.7/29.0 MSK: n/a ID: 01/25 5.0 from 7.2 f/u AM CBC Nystatin 1 top BID Tylenol 650mg POQ6H Azithromycin 500mg IVPB QD Prophylaxis: DVT: Lovenox 40mg SC QD GI: Protonix 40mg IVP QD Folic Acid 1mg PO daily Florastor 250mg PO BID discussed with Dr. Dominic Garcia DO PGY1 - Date & Time Date: 01/26/17 Time: 11:32
[2017-01-26] MEDS: Propofol 10 mg/ml 1,000 MG/100 ML VIAL IV PRN (11:49)
[2017-01-26 13:30] LABS: ALBUMIN 2.8 g/dL (3.5-5.0); ALT/SGPT 14 U/L (9-52); AST/SGOT 34 U/L (14-36); CALCIUM 7.7 mg/dl (8.6-10.4)
[2017-01-26] MEDS: Albuterol 0.042% Inhal Sol (1.25 mg/3 mL) UD INH SCH ×2 (13:33→19:25)
[2017-01-26 13:48] LABS: B-TYPE NATRIURETIC PEPTIDE 6130 pg/mL (0-900)
--- NOTE | 2017-01-26 14:05 | RAD ---
HISTORY: evaluation of pleural effusion COMPARISON: 01/25/2017 FINDINGS: LUNGS: Right perihilar opacity slightly improved. No new opacity elsewhere. PLEURA: No significant pleural effusion identified, no pneumothorax apparent. CARDIOVASCULAR: ET tube, NG tube and left IJ central venous catheter unchanged in position. OSSEOUS STRUCTURES: Multiple healed old right rib fractures. Deformity of right humeral head, likely posttraumatic. VISUALIZED UPPER ABDOMEN: Normal. OTHER FINDINGS: None. IMPRESSION: Decrease right perihilar opacity. No new infiltrate. Lines and tubes unchanged.
--- NOTE | 2017-01-26 15:53 | CP.PCM.PN ---
Subjective - Date & Time of Evaluation Date of Evaluation: 01/26/17 Time of Evaluation: 15:53 - Subjective Subjective: Pulmonary coverage for Dr. Alfaro Patient seen and examined Chart reviewed Patient currently on CPAP Awake and alert Objective - Vital Signs/Intake and Output Vital Signs (last 24 hours): Temp Pulse Resp BP Pulse Ox 98.3 F 88 21 130/62 100 01/26/17 08:00 01/26/17 13:08 01/26/17 13:08 01/26/17 13:08 01/26/17 13:08 Intake and Output: 01/26/17 01/26/17 06:59 18:59 Intake Total 191.3 100 Output Total 760 Balance -568.7 100 - Medications Medications: Current Medications Acetaminophen (Tylenol 325mg Tab) 650 mg PO Q6 PRN PRN Reason: Pain, moderate (4-7) Last Admin: 01/18/17 15:23 Dose: 650 mg Albuterol Sulfate (Albuterol 0.042% Inhal [place] (1.25mg/3ml) Ud) 1.25 mg INH RQ6 [facility] Last Admin: 01/26/17 13:33 Dose: 1.25 mg Aspirin (Ecotrin) 81 mg PO DAILY [facility] Last Admin: 01/26/17 10:37 Dose: 81 mg Enalapril Maleate (Vasotec) 5 mg PO DAILY [facility] Enoxaparin Sodium (Lovenox) 40 mg SC DAILY [facility] Last Admin: 01/26/17 10:37 Dose: 40 mg Azithromycin 500 mg/ Dextrose 250 mls @ 250 mls/hr IVPB DAILY [facility] Last Admin: 01/26/17 10:40 Dose: 250 mls/hr Propofol (Diprivan) 1,000 mg in 100 mls @ 1.388 mls/hr IV .Q24H PRN; Protocol; 5 MCG/KG/MIN PRN Reason: TITRATE PER MD ORDER Last Titration: 01/26/17 12:50 Dose: 15 mcg/kg/min, 4.164 mls/hr Aztreonam 2 gm/ Dextrose 100 mls @ 200 mls/hr IVPB Q8H [facility] Last Admin: 01/26/17 07:30 Dose: 200 mls/hr Insulin Aspart (Novolog) 0 unit SC Q6 SCOTTY PRN Reason: Protocol Last Admin: 01/26/17 12:00 Dose: Not Given Insulin Glargine (Lantus) 20 unit SC [facility] Last Admin: 01/25/17 21:08 Dose: 20 u Levetiracetam (Keppra) 750 mg PO BID [facility] Last Admin: 01/26/17 10:36 Dose: 750 mg Levothyroxine Sodium (Synthroid) 25 mcg PO DAILY@0630 [facility] Last Admin: 01/26/17 06:52 Dose: 25 mcg Metoprolol Tartrate (Lopressor) 25 mg PO BID [facility] Nystatin (Nystop Topical Powder) 1 applic TOP BID [facility] Last Admin: 01/26/17 10:38 Dose: 1 applic Pantoprazole Sodium (Protonix Inj) 40 mg IVP DAILY [facility] Last Admin: 01/26/17 10:37 Dose: 40 mg Rosuvastatin Calcium (Crestor) 20 mg PO [facility] Last Admin: 01/25/17 21:07 Dose: 20 mg Saccharomyces Boulardii (Florastor) 250 mg PO BID [facility] Last Admin: 01/26/17 10:36 Dose: 250 mg Spironolactone (Aldactone) 12.5 mg PO BID [facility] Last Admin: 01/26/17 11:32 Dose: 12.5 mg - Labs Labs: 01/26/17 06:26 01/26/17 06:26 - Head Exam Head Exam: NORMAL INSPECTION - Eye Exam Eye Exam: Normal appearance - ENT Exam ENT Exam: Mucous Membranes Moist - Respiratory Exam Respiratory Exam: Rhonchi - Cardiovascular Exam Cardiovascular Exam: REGULAR RHYTHM - GI/Abdominal Exam GI & Abdominal Exam: Soft, Normal Bowel Sounds - Extremities Exam Extremities Exam: Normal Inspection - Neurological Exam Neurological Exam: Alert Assessment and Plan (1) Pneumonia Status: Acute (2) Respiratory failure Status: Acute - Assessment and Plan (Free Text) Plan: Continue CPAP Wean as tolerated Tolerating feeding Continue antibiotics Lasix Keep patient negative balance DVT/GI prophylaxis
--- NOTE | 2017-01-26 18:06 | PN ---
SUBJECTIVE: Patient is currently on pressure support, no reported hypotension. PHYSICAL EXAMINATION: VITAL SIGNS: Blood pressure 130/62, heart rate 88, respirations 21, temperature 98.3. HEENT: Pale conjunctivae. CHEST: Bilateral rhonchi. HEART: S1 and S2 regular. EXTREMITIES: No edema. LABORATORY DATA: SMA-7: Sodium 133, potassium 3.9, chloride 104, CO2 of 27, glucose 61, BUN 25, creatinine 0.5. Hemoglobin and hematocrit 9.7 and 29.0, white count and platelet counts are within normal limits. Today's chest x-ray report, decreased right perihilar opacity, no infiltrates. ASSESSMENT: 1. Congestive heart failure. 2. Respiratory failure. 3. History of paroxysmal reentrant supraventricular tachycardia. 4. Anemia. 5. Diabetes mellitus. RECOMMENDATIONS: Continue current albuterol inhaler, continue Aldactone 12.5 mg twice a day, IV Azactam and IV Zithromax. Continue enalapril at 5 mg daily, Synthroid 25 mcg once a day, Lopressor 25 mg twice a day, aspirin at 81 mg once a day. Florian Crowell MD
[2017-01-26] MEDS: (Lantus) Insulin Glargine, Recombinant SC SCH (21:41)
--- NOTE | 2017-01-26 22:37 | CP.PCM.PN ---
Subjective - Date & Time of Evaluation Date of Evaluation: 01/26/17 Time of Evaluation: 20:00 - Subjective Subjective: patient seen and examined at bedside. Patient is GCS 10T ([id number]). Patient continues to have secretions from her mouth Objective - Vital Signs/Intake and Output Vital Signs (last 24 hours): Temp Pulse Resp BP Pulse Ox 98.4 F 83 19 138/60 99 01/26/17 16:00 01/26/17 20:08 01/26/17 20:08 01/26/17 20:08 01/26/17 20:08 Intake and Output: 01/26/17 01/27/17 18:59 06:59 Intake Total 893.4 121.5 Output Total 1522 65 Balance -628.6 56.5 - Medications Medications: Current Medications Acetaminophen (Tylenol 325mg Tab) 650 mg PO Q6 PRN PRN Reason: Pain, moderate (4-7) Last Admin: 01/18/17 15:23 Dose: 650 mg Albuterol Sulfate (Albuterol 0.042% Inhal Tianna (1.25mg/3ml) Ud) 1.25 mg INH RQ6 [facility] Last Admin: 01/26/17 19:25 Dose: 1.25 mg Aspirin (Ecotrin) 81 mg PO DAILY [facility] Last Admin: 01/26/17 10:37 Dose: 81 mg Enalapril Maleate (Vasotec) 5 mg PO DAILY [facility] Enoxaparin Sodium (Lovenox) 40 mg SC DAILY [facility] Last Admin: 01/26/17 10:37 Dose: 40 mg Azithromycin 500 mg/ Dextrose 250 mls @ 250 mls/hr IVPB DAILY [facility] Last Admin: 01/26/17 10:40 Dose: 250 mls/hr Propofol (Diprivan) 1,000 mg in 100 mls @ 1.388 mls/hr IV .Q24H PRN; Protocol; 5 MCG/KG/MIN PRN Reason: TITRATE PER MD ORDER Last Titration: 01/26/17 12:50 Dose: 15 mcg/kg/min, 4.164 mls/hr Aztreonam 2 gm/ Dextrose 100 mls @ 200 mls/hr IVPB Q8H [facility] Last Admin: 01/26/17 16:05 Dose: 200 mls/hr Insulin Aspart (Novolog) 0 unit SC Q6 [facility] PRN Reason: Protocol Last Admin: 01/26/17 18:20 Dose: Not Given Insulin Glargine (Lantus) 20 unit SC [facility] Last Admin: 01/26/17 21:41 Dose: 20 u Levetiracetam (Keppra) 750 mg PO BID [facility] Last Admin: 01/26/17 18:19 Dose: 750 mg Levothyroxine Sodium (Synthroid) 25 mcg PO DAILY@0630 [facility] Last Admin: 01/26/17 06:52 Dose: 25 mcg Metoprolol Tartrate (Lopressor) 25 mg PO BID [facility] Last Admin: 01/26/17 18:19 Dose: 25 mg Nystatin (Nystop Topical Powder) 1 applic TOP BID [facility] Last Admin: 01/26/17 18:21 Dose: 1 applic Pantoprazole Sodium (Protonix Inj) 40 mg IVP DAILY [facility] Last Admin: 01/26/17 10:37 Dose: 40 mg Rosuvastatin Calcium (Crestor) 20 mg PO [facility] Last Admin: 01/26/17 21:38 Dose: 20 mg Saccharomyces Boulardii (Florastor) 250 mg PO BID [facility] Last Admin: 01/26/17 18:19 Dose: 250 mg Spironolactone (Aldactone) 12.5 mg PO BID [facility] Last Admin: 01/26/17 18:20 Dose: 12.5 mg - Labs Labs: 01/26/17 06:26 01/26/17 06:26 Assessment and Plan (1) Respiratory failure Status: Acute (2) Seizure disorder Status: Acute (3) Uncontrolled blood glucose Status: Acute (4) Systolic CHF Status: Acute
[2017-01-27] MEDS: (Novolog) Insulin Aspart, Recombinant 100 u/ml 10 ml vial SC SCH ×4 (00:43→18:09)
[2017-01-27] MEDS: Albuterol 0.042% Inhal Sol (1.25 mg/3 mL) UD INH SCH ×4 (02:04→19:52)
[2017-01-27] MEDS: Aztreonam 2 GM in Dextrose 5% In Water 100 ML IVPB SCH (04:47)
[2017-01-27] MEDS: Propofol 10 mg/ml 1,000 MG/100 ML VIAL IV PRN ×2 (04:56→20:26)
[2017-01-27 05:40] LABS: ARTERIAL BLOOD GAS HCO3 27.5 mmol/L (21-28); ARTERIAL BLOOD GAS HEMOGLOBIN 9.5 g/dL (11.7-17.4); ARTERIAL BLOOD GAS O2 SAT 98.7 % (95-98); ARTERIAL BLOOD GAS PCO2 35 mm/Hg (35-45); ARTERIAL BLOOD GAS PH 7.49 (7.35-7.45); ARTERIAL BLOOD GAS PO2 84 mm/Hg (80-100); ARTERIAL BLOOD GAS TCO2 27.8 mmol/L (22-28)
[2017-01-27] MEDS: Levothyroxine 25 MCG TAB PO SCH (06:57)
[2017-01-27 07:05] LABS: ALB/GLOB RATIO 0.9 (1.0-2.1); ALBUMIN 2.9 g/dL (3.5-5.0); ALT/SGPT 15 U/L (9-52); AST/SGOT 27 U/L (14-36); BLOOD UREA NITROGEN 20 mg/dL (7-17); CALCIUM 7.7 mg/dl (8.6-10.4); GFR AFRICAN-AMERICAN > 60; GFR NON-AFRICAN AMERICAN > 60; MAGNESIUM 1.8 mg/dL (1.6-2.3)
--- NOTE | 2017-01-27 07:09 | CP.CCUPN ---
CCU Subjective - Physician Review Subjective (Free Text): 01/27/[address] Alec Banks Patient seen and examined at bedside. No acute events overnight. per nursing, patient was tiring on CPAP and was placed back on [facility] Objective - Vital Signs / Intake & Output Intake and Output (Last 8hrs): Intake & Output 01/26/17 01/27/17 01/27/17 22:59 06:59 14:59 Intake Total 542.6 328.0 Output Total 1308 235 Balance -765.4 93.0 Intake: IV 5 Intake, IV Amount 142.6 43.0 Left Medial Port Internal 100 Jugular Left Proximal Port 42.6 43.0 Internal Jugular Tube Feeding 280 280 Other 120 Output: Urine 1307 235 Urine, Voided 1307 235 Stool 1 - Physical Exam Head: Positive for: Atraumatic, Normocephalic Pupils: Positive for: PERRL Extroacular Muscles: Positive for: EOMI Mouth: Positive for: Moist Mucous Membranes, Other (intubated) Respiratory/Chest: Positive for: Wheezes, Decreased Breath Sounds, Rhonchi, Other (intubated). Negative for: Respiratory Distress, Accessory Muscle Use Cardiovascular: Positive for: Regular Rate and Rhythm, Murmurs, Normal S1, S2 Abdomen: Negative for: Tenderness, Distention, Peritoneal Signs Upper Extremity: Positive for: Normal Inspection. Negative for: Edema Lower Extremity: Positive for: Normal Inspection. Negative for: Edema Neurological: Positive for: Other (intubated). Negative for: GCS=15 (GCS 11T) Skin: Positive for: Warm Psychiatric: Positive for: Alert, Other (intubated) - Medications Active Medications: Active Medications Generic Name Dose Route Start Last Admin Trade Name Freq PRN Reason Stop Dose Admin Acetaminophen 650 mg 01/17/17 21:49 01/18/17 15:23 Tylenol 325mg Tab PO 650 mg Q6 PRN Administration Pain, moderate (4-7) Albuterol Sulfate 1.25 mg 01/26/17 14:00 01/27/17 02:04 Albuterol 0.042% Inhal Tianna (1.25mg/3ml) Ud INH 1.25 mg RQ6 [facility] Administration Aspirin 81 mg 01/18/17 10:00 01/26/17 10:37 Ecotrin PO 81 mg DAILY [facility] Administration Enalapril Maleate 5 mg 01/26/17 12:45 Vasotec PO DAILY [facility] Enoxaparin Sodium 40 mg 01/18/17 10:00 01/26/17 10:37 Lovenox SC 40 mg DAILY [facility] Administration Azithromycin 500 mg/ Dextrose 250 mls @ 250 mls/hr 01/24/17 10:00 01/26/17 10 :40 IVPB 250 mls/hr DAILY [facility] Administration Propofol 1,000 mg in 100 mls @ 1.388 mls/hr 01/24/17 10:00 01/27/17 04:56 Diprivan IV 15 mcg/kg/min .Q24H PRN 4.164 mls/hr TITRATE PER MD ORDER Administration Protocol 5 MCG/KG/MIN Aztreonam 2 gm/ Dextrose 100 mls @ 200 mls/hr 01/24/17 16:00 01/27/17 04:47 IVPB 200 mls/hr Q8H [facility] Administration Insulin Aspart 0 unit 01/25/17 12:00 01/27/17 06:49 Novolog SC Not Given Q6 [facility] Protocol Insulin Glargine 20 unit 01/25/17 22:00 01/26/17 21:41 Lantus SC 20 u HS [facility] Administration Levetiracetam 750 mg 01/18/17 10:00 01/26/17 18:19 Keppra PO 750 mg BID [facility] Administration Levothyroxine Sodium 25 mcg 01/18/17 06:30 01/27/17 06:57 Synthroid PO 25 mcg DAILY@0630 [facility] Administration Metoprolol Tartrate 25 mg 01/26/17 18:00 01/26/17 18:19 Lopressor PO 25 mg BID [facility] Administration Nystatin 1 applic 01/24/17 18:00 01/26/17 18:21 Nystop Topical Powder TOP 1 applic BID [facility] Administration Pantoprazole Sodium 40 mg 01/19/17 10:00 01/26/17 10:37 Protonix Inj IVP 40 mg DAILY [facility] Administration Rosuvastatin Calcium 20 mg 01/18/17 22:00 01/26/17 21:38 Crestor PO 20 mg HS [facility] Administration Saccharomyces Boulardii 250 mg 01/18/17 18:00 01/26/17 18:19 Florastor PO 250 mg BID [facility] Administration Spironolactone 12.5 mg 01/20/17 18:00 01/26/17 18:20 Aldactone PO 12.5 mg BID [facility] Administration - Patient Studies Lab Studies: Lab Studies 01/27/17 01/27/17 01/26/17 Range/Units 06:34 05:11 23:45 Puncture Site Rb pCO2 35 (35-45) mm/Hg pO2 84 (80-100) mm/Hg HCO3 27.5 (21-28) mmol/L ABG pH 7.49 H (7.35-7.45) ABG Total CO2 27.8 (22-28) mmol/L ABG O2 Saturation 98.7 H (95-98) % ABG Base Excess 3.3 H (-2.0-3.0) mmol/L ABG Hemoglobin 9.5 L (11.7-17.4) g/dL ABG Carboxyhemoglobin 1.8 H (0.5-1.5) % POC ABG HHb (Measured) 1.3 (0.0-5.0) % ABG Methemoglobin 1.5 (0.0-3.0) % Singh Test Na A-a O2 Difference 229.0 mm/Hg Respiratory Index 2.7 Hgb O2 Saturation 95.5 (95.0-98.0) % Vent Mode Cpap FiO2 50.0 % Pressure Support 15 CPAP 5 Sodium 132 (132-148) mmol/L Potassium 3.7 (3.6-5.2) mmol/L Chloride 99 (98-107) mmol/L Carbon Dioxide 29 (22-30) mmol/L Anion Gap 8 L (10-20) BUN 20 H (7-17) mg/dL Creatinine 0.5 L (0.7-1.2) mg/dL Est GFR ( Amer) > 60 Est GFR (Non-Af Amer) > 60 POC Glucose (mg/dL) 175 H (65-110) mg/dL Random Glucose 82 (65-105) mg/dL Calcium 7.7 L (8.6-10.4) mg/dl Phosphorus 3.0 (2.5-4.5) mg/dL Magnesium 1.8 (1.6-2.3) mg/dL Total Bilirubin 0.3 (0.2-1.3) mg/dL AST 27 (14-36) U/L ALT 15 (9-52) U/L Alkaline Phosphatase 102 (38-126) U/L NT-Pro-B Natriuret Pep (0-900) pg/mL Total Protein 6.0 L (6.3-8.3) g/dL Albumin 2.9 L (3.5-5.0) g/dL Globulin 3.1 (2.2-3.9) gm/dL Albumin/Globulin Ratio 0.9 L (1.0-2.1) 01/26/17 01/26/17 01/26/17 Range/Units 17:53 11:28 06:26 Puncture Site pCO2 (35-45) mm/Hg pO2 (80-100) mm/Hg HCO3 (21-28) mmol/L ABG pH (7.35-7.45) ABG Total CO2 (22-28) mmol/L ABG O2 Saturation (95-98) % ABG Base Excess (-2.0-3.0) mmol/L ABG Hemoglobin (11.7-17.4) g/dL ABG Carboxyhemoglobin (0.5-1.5) % POC ABG HHb (Measured) (0.0-5.0) % ABG Methemoglobin (0.0-3.0) % Singh Test A-a O2 Difference mm/Hg Respiratory Index Hgb O2 Saturation (95.0-98.0) % Vent Mode FiO2 % Pressure Support CPAP Sodium 133 (132-148) mmol/L Potassium 3.9 (3.6-5.2) mmol/L Chloride 104 (98-107) mmol/L Carbon Dioxide 27 (22-30) mmol/L Anion Gap 6 L (10-20) BUN 25 H (7-17) mg/dL Creatinine 0.5 L (0.7-1.2) mg/dL Est GFR ( Amer) > 60 Est GFR (Non-Af Amer) > 60 POC Glucose (mg/dL) 177 H 126 H (65-110) mg/dL Random Glucose 61 L (65-105) mg/dL Calcium 7.7 L (8.6-10.4) mg/dl Phosphorus 2.3 L (2.5-4.5) mg/dL Magnesium 1.9 (1.6-2.3) mg/dL Total Bilirubin 0.3 (0.2-1.3) mg/dL AST 34 (14-36) U/L ALT 14 (9-52) U/L Alkaline Phosphatase 112 (38-126) U/L NT-Pro-B Natriuret Pep 6130 H (0-900) pg/mL Total Protein 5.8 L (6.3-8.3) g/dL Albumin 2.8 L (3.5-5.0) g/dL Globulin 3.1 (2.2-3.9) gm/dL Albumin/Globulin Ratio 0.9 L (1.0-2.1) Laboratory Results - last 24 hr 01/26/17 01/26/17 01/26/17 06:26 11:28 17:53 Puncture Site pCO2 pO2 HCO3 ABG pH ABG Total CO2 ABG O2 Saturation ABG Base Excess ABG Hemoglobin ABG Carboxyhemoglobin POC ABG HHb (Measured) ABG Methemoglobin Singh Test A-a O2 Difference Respiratory Index Hgb O2 Saturation Vent Mode FiO2 Pressure Support CPAP Sodium 133 Potassium 3.9 Chloride 104 Carbon Dioxide 27 Anion Gap 6 L BUN 25 H Creatinine 0.5 L Est GFR ( Amer) > 60 Est GFR (Non-Af Amer) > 60 POC Glucose (mg/dL) 126 H 177 H Random Glucose 61 L Calcium 7.7 L Phosphorus 2.3 L Magnesium 1.9 Total Bilirubin 0.3 AST 34 ALT 14 Alkaline Phosphatase 112 NT-Pro-B Natriuret Pep 6130 H Total Protein 5.8 L Albumin 2.8 L Globulin 3.1 Albumin/Globulin Ratio 0.9 L 01/26/17 01/27/17 01/27/17 23:45 05:11 06:34 Puncture Site Rb pCO2 35 pO2 84 HCO3 27.5 ABG pH 7.49 H ABG Total CO2 27.8 ABG O2 Saturation 98.7 H ABG Base Excess 3.3 H ABG Hemoglobin 9.5 L ABG Carboxyhemoglobin 1.8 H POC ABG HHb (Measured) 1.3 ABG Methemoglobin 1.5 Singh Test Na A-a O2 Difference 229.0 Respiratory Index 2.7 Hgb O2 Saturation 95.5 Vent Mode Cpap FiO2 50.0 Pressure Support 15 CPAP 5 Sodium 132 Potassium 3.7 Chloride 99 Carbon Dioxide 29 Anion Gap 8 L BUN 20 H Creatinine 0.5 L Est GFR ( Amer) > 60 Est GFR (Non-Af Amer) > 60 POC Glucose (mg/dL) 175 H Random Glucose 82 Calcium 7.7 L Phosphorus 3.0 Magnesium 1.8 Total Bilirubin 0.3 AST 27 ALT 15 Alkaline Phosphatase 102 NT-Pro-B Natriuret Pep Total Protein 6.0 L Albumin 2.9 L Globulin 3.1 Albumin/Globulin Ratio 0.9 L Fingerstick Blood Sugar Results: 93 Assessment/Plan - Assessment and Plan (Free Text) Assessment: Patient is an 81 year old female presenting to the hospital with vague chest pain that needed to be intubated due to respiratory failure from hypercapnia. Patient was transferred to the ICU for further evaluation. Progress Note: Assessment Plan Neuro: History of Seizures: Keppra 750mg PO BID Sedation: Propofol 5mcg/kg/min Pain: Psych: history of Szhizophrenia Haldol 1mg Q12H Ativan 0.5mg Q6H PRN Cardio: 01/08 Echo: Grade I abnormal relaxation pattern. global hypokinesis, systolic function is mild to moderately reduced. Left atrium is mildly dilated. severe pulmonary HTN. mildly dilated left atrium, severe left ventricular dysfunction. EF 37% Cardio Consult: Dr. Crowell 01/25 BNP ASA 81mg POQD Enlapril 2.5mg POQD -increased to 5mg 01/26 Cardizem 30mg POQID Metoprolol tartrate 25mg POBID Enlapril 5mg POQD Pulm: 01/24 intubated 01/26 CXR: increased pleural effusions Vent Settings:450//15/50% 01/25 ABG: pH 7.53/ pO2 127/ pCO2 26/ pHCO3 25.2 01/26 ABG: pH 7.51/ pCO2 32/ pO2 108/ pHCO3 27.0 01/27/17 05:11 pH 7.49 35, 84, 27.5, Vent Settings CPAP 50% 21/06 01/27 CPAP trials today 01/26 CXR: increased pleural effusions Albuterol 1.25mg INH RQ6H [facility] Lasix 40mg IVP STAT Endo: Hypothyroid Diabetes Novolin hold Levothyroxine 25mcgPOQD Insulin SCQ6H low dose sliding scale ISS low dose q6h Glucerna 1.5 initiate 20cc/hr, increase by 5cc/hr, goal rate 35cc/hr GI: Tube Feeds: Glucerna 1.5 initiate 20cc/hr, increase by 5cc/hr, goal rate 35cc/ hr : n/a Renal: I/O: 1461.1/725 = 736.1 24 UOP 725cc/hr 01/25 repleted potassium Heme/Onc: 01/25 H/H: 10.0/29.9 01/26 H/H 9.7/29.0 MSK: n/a ID: 01/25 5.0 from 7.2 f/u AM CBC Nystatin 1 top BID Tylenol 650mg POQ6H Azithromycin 500mg IVPB QD Prophylaxis: DVT: Lovenox 40mg SC QD GI: Protonix 40mg IVP QD Folic Acid 1mg PO daily Florastor 250mg PO BID discussed with Dr. Alec Garcia DO PGY1 - Date & Time Date: 01/27/17 Time: 16:00
[2017-01-27 07:17] LABS: BASO # 0.1 K/uL (0.0-0.2); BASO % 0.9 % (0.0-2.0); EOS # 0.2 K/uL (0.0-0.7); EOS % 3.1 % (0.0-4.0); LYMPH # 1.4 K/uL (1.0-4.3); LYMPH % 22.2 % (20.0-40.0); MEAN CELL VOLUME 79.1 fL (81.0-99.0); MEAN CORPUSCULAR HEMOGLOBIN 26.8 pg (27.0-31.0); MEAN CORPUSCULAR HGB CONC 33.9 g/dL (33.0-37.0); MEAN PLATELET VOLUME 8.4 fL (7.2-11.7); MONO # 0.5 K/uL (0.0-0.8); MONO % 8.4 % (0.0-10.0); NEUT # 4.1 K/uL (1.8-7.0); NEUT % 65.4 % (50.0-75.0); NRBC % 0.1 % (0.0-2.0); RBC 3.38 Mil/uL (3.80-5.20); RED CELL DISTRIBUTION WIDTH 15.3 % (11.5-14.5); WHITE BLOOD COUNT 6.3 K/uL (4.8-10.8)
[2017-01-27] MEDS ORDERED: Meropenem 500 MG in Sodium Chloride 0.9% 100 ML IVPB SCH ×2 (08:00→09:00)
--- NOTE | 2017-01-27 09:17 | RAD ---
HISTORY: on vent COMPARISON: 01/26/2017 FINDINGS: The endotracheal tube is low in position and terminates at the iwona. The left IJV line terminates in the SVC. The nasogastric tube terminates in the stomach. LUNGS: There is patient rotation to the right. There is persistent airspace disease in the right lung. The left lung is well inflated. There is persistent venous congestion. PLEURA: No significant pleural effusion identified, no pneumothorax apparent. CARDIOVASCULAR: Normal. OSSEOUS STRUCTURES: There is diffuse bone demineralization and old fracture deformities in the right-sided ribs. VISUALIZED UPPER ABDOMEN: Normal. OTHER FINDINGS: None. IMPRESSION: Limited portable examination due to patient rotation to the right. Allowing for this, persistent airspace disease in the right lung. No focal consolidation in the left lung. Stable position of support line and tube.
[2017-01-27] MEDS: Saccharomyces Boulardi 250 mg Cap PO SCH ×2 (09:21→18:05)
[2017-01-27] MEDS: Enoxaparin 40 mg Syringe SC SCH (09:22)
[2017-01-27] MEDS: Aztreonam 2 GM in Sodium Chloride 0.9% 100 ML IVPB SCH ×2 (11:06→20:00)
[2017-01-27] MEDS: Vancomycin 1 gm/NS 200 ml 1 GM/200 ML BAG IVPB SCH (14:18)
--- NOTE | 2017-01-27 19:19 | CP.PCM.PN ---
Subjective - Date & Time of Evaluation Date of Evaluation: 01/27/17 Time of Evaluation: 19:17 - Subjective Subjective: Patient seen and examined On CPAP trial Awake and responsive Spontaneous tidal volumes about 280 - 320 ml Objective - Vital Signs/Intake and Output Vital Signs (last 24 hours): Temp Pulse Resp BP Pulse Ox 98.2 F 83 19 125/62 99 01/27/17 16:00 01/26/17 20:08 01/26/17 20:08 01/27/17 18:05 01/26/17 20:08 Intake and Output: 01/27/17 01/28/17 18:59 06:59 Intake Total 1218.5 41.9 Output Total 260 0 Balance 958.5 41.9 - Medications Medications: Current Medications Acetaminophen (Tylenol 325mg Tab) 650 mg PO Q6 PRN PRN Reason: Pain, moderate (4-7) Last Admin: 01/18/17 15:23 Dose: 650 mg Albuterol Sulfate (Albuterol 0.042% Inhal Tianna (1.25mg/3ml) Ud) 1.25 mg INH RQ6 [facility] Last Admin: 01/27/17 13:46 Dose: 1.25 mg Aspirin (Aspirin Chewable) 81 mg PO DAILY [facility] Enalapril Maleate (Vasotec) 5 mg PO DAILY [facility] Last Admin: 01/27/17 09:23 Dose: 5 mg Enoxaparin Sodium (Lovenox) 40 mg SC DAILY [facility] Last Admin: 01/27/17 09:22 Dose: 40 mg Azithromycin 500 mg/ Dextrose 250 mls @ 250 mls/hr IVPB DAILY [facility] Last Admin: 01/27/17 09:23 Dose: 250 mls/hr Propofol (Diprivan) 1,000 mg in 100 mls @ 1.388 mls/hr IV .Q24H PRN; Protocol; 5 MCG/KG/MIN PRN Reason: TITRATE PER MD ORDER Last Titration: 01/27/17 18:19 Dose: 25 mcg/kg/min, 6.94 mls/hr Aztreonam 2 gm/ Sodium (Chloride) 100 mls @ 200 mls/hr IVPB Q8H [facility] Last Admin: 01/27/17 11:06 Dose: 200 mls/hr Vancomycin/Sodium Chloride (Vancomycin 1 Gm/Ns 200 Ml) 1 gm in 200 mls @ 166.7 mls/hr IVPB Q24H [facility] Stop: 02/01/17 14:01 Last Admin: 01/27/17 14:18 Dose: 166.7 mls/hr Levetiracetam 750 mg/ Sodium (Chloride) 107.5 mls @ 420 mls/hr IVPB Q12H [facility] Last Admin: 01/27/17 13:42 Dose: 420 mls/hr Insulin Aspart (Novolog) 0 unit SC Q6 [facility] PRN Reason: Protocol Last Admin: 01/27/17 18:09 Dose: Not Given Insulin Glargine (Lantus) 20 unit SC [facility] Last Admin: 01/26/17 21:41 Dose: 20 u Levothyroxine Sodium (Synthroid) 25 mcg PO DAILY@0630 [facility] Last Admin: 01/27/17 06:57 Dose: 25 mcg Metoprolol Tartrate (Lopressor) 25 mg PO BID [facility] Last Admin: 01/27/17 18:05 Dose: 25 mg Nystatin (Nystop Topical Powder) 1 applic TOP BID [facility] Last Admin: 01/27/17 18:06 Dose: 1 applic Pantoprazole Sodium (Protonix Inj) 40 mg IVP DAILY [facility] Last Admin: 01/27/17 09:23 Dose: 40 mg Rosuvastatin Calcium (Crestor) 20 mg PO [facility] Last Admin: 01/26/17 21:38 Dose: 20 mg Saccharomyces Boulardii (Florastor) 250 mg PO BID [facility] Last Admin: 01/27/17 18:05 Dose: 250 mg Spironolactone (Aldactone) 12.5 mg PO BID [facility] Last Admin: 01/27/17 18:05 Dose: 12.5 mg - Labs Labs: 01/27/17 06:34 01/27/17 06:34 - Head Exam Head Exam: NORMAL INSPECTION - Eye Exam Eye Exam: Normal appearance - ENT Exam ENT Exam: Mucous Membranes Moist - Respiratory Exam Respiratory Exam: Decreased Breath Sounds - Cardiovascular Exam Cardiovascular Exam: REGULAR RHYTHM, +S1, +S2 - GI/Abdominal Exam GI & Abdominal Exam: Soft, Normal Bowel Sounds - Neurological Exam Neurological Exam: Alert, Oriented x3 Assessment and Plan (1) Pneumonia Status: Acute (2) Respiratory failure Status: Acute - Assessment and Plan (Free Text) Plan: Daily CPAP trials Wean as tolerated Tolerating feeding Continue antibiotics Lasix Keep patient negative balance DVT/GI prophylaxis
[2017-01-27] MEDS: (Lantus) Insulin Glargine, Recombinant SC SCH (21:44)
--- NOTE | 2017-01-27 23:02 | CP.PCM.PN ---
Subjective - Date & Time of Evaluation Date of Evaluation: 01/27/17 Time of Evaluation: 20:00 - Subjective Subjective: Pt seen and examined, remains on ventilator, in non weanable, congested due to pnemnia, she is more alert, afberile on antibiotics Objective - Vital Signs/Intake and Output Vital Signs (last 24 hours): Temp Pulse Resp BP Pulse Ox 98.2 F 83 19 125/62 99 01/27/17 16:00 01/26/17 20:08 01/26/17 20:08 01/27/17 18:05 01/26/17 20:08 Intake and Output: 01/27/17 01/28/17 18:59 06:59 Intake Total 1218.5 180.1 Output Total 260 0 Balance 958.5 180.1 - Medications Medications: Current Medications Acetaminophen (Tylenol 325mg Tab) 650 mg PO Q6 PRN PRN Reason: Pain, moderate (4-7) Last Admin: 01/18/17 15:23 Dose: 650 mg Albuterol Sulfate (Albuterol 0.042% Inhal Tianna (1.25mg/3ml) Ud) 1.25 mg INH RQ6 [facility] Last Admin: 01/27/17 19:52 Dose: 1.25 mg Aspirin (Aspirin Chewable) 81 mg PO DAILY [facility] Enalapril Maleate (Vasotec) 5 mg PO DAILY [facility] Last Admin: 01/27/17 09:23 Dose: 5 mg Enoxaparin Sodium (Lovenox) 40 mg SC DAILY [facility] Last Admin: 01/27/17 09:22 Dose: 40 mg Azithromycin 500 mg/ Dextrose 250 mls @ 250 mls/hr IVPB DAILY [facility] Last Admin: 01/27/17 09:23 Dose: 250 mls/hr Propofol (Diprivan) 1,000 mg in 100 mls @ 1.388 mls/hr IV .Q24H PRN; Protocol; 5 MCG/KG/MIN PRN Reason: TITRATE PER MD ORDER Last Admin: 01/27/17 20:26 Dose: 34.94 mcg/kg/min, 9.7 mls/hr Aztreonam 2 gm/ Sodium (Chloride) 100 mls @ 200 mls/hr IVPB Q8H [facility] Last Admin: 01/27/17 20:00 Dose: 200 mls/hr Vancomycin/Sodium Chloride (Vancomycin 1 Gm/Ns 200 Ml) 1 gm in 200 mls @ 166.7 mls/hr IVPB Q24H [facility] Stop: 02/01/17 14:01 Last Admin: 01/27/17 14:18 Dose: 166.7 mls/hr Levetiracetam 750 mg/ Sodium (Chloride) 107.5 mls @ 420 mls/hr IVPB Q12H [facility] Last Admin: 01/27/17 13:42 Dose: 420 mls/hr Insulin Aspart (Novolog) 0 unit SC Q6 [facility] PRN Reason: Protocol Last Admin: 01/27/17 18:09 Dose: Not Given Insulin Glargine (Lantus) 20 unit SC [facility] Last Admin: 01/27/17 21:44 Dose: 20 u Levothyroxine Sodium (Synthroid) 25 mcg PO DAILY@0630 [facility] Last Admin: 01/27/17 06:57 Dose: 25 mcg Metoprolol Tartrate (Lopressor) 25 mg PO BID [facility] Last Admin: 01/27/17 18:05 Dose: 25 mg Nystatin (Nystop Topical Powder) 1 applic TOP BID [facility] Last Admin: 01/27/17 18:06 Dose: 1 applic Pantoprazole Sodium (Protonix Inj) 40 mg IVP DAILY [facility] Last Admin: 01/27/17 09:23 Dose: 40 mg Rosuvastatin Calcium (Crestor) 20 mg PO [facility] Last Admin: 01/27/17 21:41 Dose: 20 mg Saccharomyces Boulardii (Florastor) 250 mg PO BID [facility] Last Admin: 01/27/17 18:05 Dose: 250 mg Spironolactone (Aldactone) 12.5 mg PO BID [facility] Last Admin: 01/27/17 18:05 Dose: 12.5 mg - Labs Labs: 01/27/17 06:34 01/27/17 06:34 - Constitutional Appears: Chronically Ill - Eye Exam Eye Exam: EOMI, Normal appearance, PERRL Pupil Exam: NORMAL ACCOMODATION, PERRL - ENT Exam ENT Exam: Mucous Membranes Moist, Normal Exam - Respiratory Exam Respiratory Exam: Decreased Breath Sounds, Rales, Rhonchi - Cardiovascular Exam Cardiovascular Exam: Tachycardia, +S1, +S2 - Neurological Exam Neurological Exam: Alert, Awake Assessment and Plan (1) Respiratory failure Status: Acute (2) Seizure disorder Status: Acute (3) Uncontrolled blood glucose Status: Acute (4) Systolic CHF Status: Acute
[2017-01-28] MEDS: Albuterol 0.042% Inhal Sol (1.25 mg/3 mL) UD INH SCH ×4 (01:16→19:19)
[2017-01-28] MEDS: (Novolog) Insulin Aspart, Recombinant 100 u/ml 10 ml vial SC SCH ×4 (02:30→17:36)
[2017-01-28] MEDS: Aztreonam 2 GM in Sodium Chloride 0.9% 100 ML IVPB SCH ×3 (04:00→19:59)
[2017-01-28 05:42] LABS: ABG ALLEN TEST POS; ARTERIAL BLOOD GAS HCO3 22.9 mmol/L (21-28); ARTERIAL BLOOD GAS HEMOGLOBIN 7.9 g/dL (11.7-17.4); ARTERIAL BLOOD GAS O2 SAT 100.8 % (95-98); ARTERIAL BLOOD GAS PCO2 31 mm/Hg (35-45); ARTERIAL BLOOD GAS PH 7.44 (7.35-7.45); ARTERIAL BLOOD GAS PO2 171 mm/Hg (80-100); ARTERIAL BLOOD GAS TCO2 22.1 mmol/L (22-28)
--- NOTE | 2017-01-28 06:21 | PN ---
DATE: SUBJECTIVE: Patient is still on a ventilator. No reported hypotension, sustained ventricular or supraventricular arrhythmia. PHYSICAL EXAMINATION: VITAL SIGNS: Blood pressure 138/67, temperature 98.2, heart rate 83, and respirations 19. HEENT: Pale conjunctivae. CHEST: Bilateral rhonchi. HEART: S1, S2, regular. EXTREMITIES: Significant contracture deformity. LABORATORY DATA: Hemoglobin and hematocrit 9 and 26.7, white count and platelet count are within normal limits. Today's SMA-7 is within normal limits except for BUN of 20 and creatinine of 0.5. Calcium is below normal at 7.7. Today's chest x-ray, limited portable examination due to patient's rotation to the right. Persistent airspace disease in the right lung. No focal consolidation of the left lung. ASSESSMENT: 1. Recurrent respiratory failure. 2. Congestive heart failure. 3. History of paroxysmal reentrant supraventricular tachycardia. 4. Anemia. 5. Gram-negative urinary tract infection with Escherichia coli and yeast species. RECOMMENDATIONS: Continue albuterol inhaler q. 6 hours, Aldactone 12.5 mg twice a day, aspirin 81 mg once a day, IV Azactam and IV Zithromax, Lopressor 25 mg twice a day, Synthroid 25 mcg once a day, and Vasotec 5 mg once a day. Florian Crowell MD
[2017-01-28] MEDS: Levothyroxine 25 MCG TAB PO SCH (06:30)
[2017-01-28 06:36] LABS: EOS # 0.2 K/uL (0.0-0.7); EOS % 5.7 % (0.0-4.0); HEMOGLOBIN 8.7 g/dL (11.0-16.0); LYMPH % 24.6 % (20.0-40.0); MEAN CELL VOLUME 79.8 fL (81.0-99.0); MEAN CORPUSCULAR HGB CONC 33.8 g/dL (33.0-37.0); MONO # 0.3 K/uL (0.0-0.8); NEUT # 2.5 K/uL (1.8-7.0); NEUT % 60.7 % (50.0-75.0); RBC 3.22 Mil/uL (3.80-5.20); RED CELL DISTRIBUTION WIDTH 15.2 % (11.5-14.5); WHITE BLOOD COUNT 4.1 K/uL (4.8-10.8)
[2017-01-28 07:12] LABS: ALB/GLOB RATIO 0.9 (1.0-2.1); ALBUMIN 2.7 g/dL (3.5-5.0); ALT/SGPT 16 U/L (9-52); AST/SGOT 23 U/L (14-36); BLOOD UREA NITROGEN 20 mg/dL (7-17); CALCIUM 7.5 mg/dl (8.6-10.4); GFR AFRICAN-AMERICAN > 60; GFR NON-AFRICAN AMERICAN > 60; MAGNESIUM 1.9 mg/dL (1.6-2.3)
[2017-01-28] MEDS: Enoxaparin 40 mg Syringe SC SCH (09:14)
[2017-01-28] MEDS: Saccharomyces Boulardi 250 mg Cap PO SCH ×2 (09:14→17:41)
[2017-01-28] MEDS: Azithromycin 500 MG in Sodium Chloride 0.9% 250 ML IVPB SCH (09:16)
[2017-01-28] MEDS: Propofol 10 mg/ml 1,000 MG/100 ML VIAL IV PRN (10:28)
[2017-01-28 13:04] LABS: % IRON SATURATION 4.78 (20-55)
--- NOTE | 2017-01-28 13:49 | RAD ---
HISTORY: intubated COMPARISON: 01/27/2017. FINDINGS: Endotracheal tube terminates 1.9 cm proximal to the iwona. The nasogastric tube terminates in the stomach. The left IJV line terminates in the SVC. LUNGS: The lungs are hyperinflated and there is peribronchial thickening with streaky opacities in the lungs. There is airspace disease in the right mid lung. No focal consolidation in the left lung. PLEURA: No significant pleural effusion identified, no pneumothorax apparent. CARDIOVASCULAR: There is persistent mild cardiomegaly. OSSEOUS STRUCTURES: There is diffuse bone demineralization and old fracture deformities in right-sided ribs. VISUALIZED UPPER ABDOMEN: Normal. OTHER FINDINGS: None. IMPRESSION: Stable position of support line and tubes. Right mid lung airspace disease may represent atelectasis or pneumonia. Background of COPD.
[2017-01-28] MEDS: Vancomycin 1 gm/NS 200 ml 1 GM/200 ML BAG IVPB SCH (14:42)
--- NOTE | 2017-01-28 15:29 | CP.PCM.PN ---
Subjective - Date & Time of Evaluation Date of Evaluation: 01/28/17 Time of Evaluation: 15:29 Objective - Vital Signs/Intake and Output Vital Signs (last 24 hours): Temp Pulse Resp BP Pulse Ox 98.2 F 80 12 144/62 100 01/28/17 04:00 01/28/17 06:08 01/28/17 06:08 01/28/17 09:15 01/28/17 06:08 Intake and Output: 01/28/17 01/28/17 06:59 18:59 Intake Total 537.7 1140.4 Output Total 160 150 Balance 377.7 990.4 - Medications Medications: Current Medications Acetaminophen (Tylenol 325mg Tab) 650 mg PO Q6 PRN PRN Reason: Pain, moderate (4-7) Last Admin: 01/18/17 15:23 Dose: 650 mg Albuterol Sulfate (Albuterol 0.042% Inhal [place] (1.25mg/3ml) Ud) 1.25 mg INH RQ6 [facility] Last Admin: 01/28/17 14:09 Dose: 1.25 mg Aspirin (Aspirin Chewable) 81 mg PO DAILY [facility] Last Admin: 01/28/17 09:13 Dose: 81 mg Enalapril Maleate (Vasotec) 5 mg PO DAILY [facility] Last Admin: 01/28/17 09:15 Dose: 5 mg Enoxaparin Sodium (Lovenox) 40 mg SC DAILY [facility] Last Admin: 01/28/17 09:14 Dose: 40 mg Propofol (Diprivan) 1,000 mg in 100 mls @ 1.388 mls/hr IV .Q24H PRN; Protocol; 5 MCG/KG/MIN PRN Reason: TITRATE PER MD ORDER Last Titration: 01/28/17 14:33 Dose: 0 mcg/kg/min, 0 mls/hr Aztreonam 2 gm/ Sodium (Chloride) 100 mls @ 200 mls/hr IVPB Q8H [facility] Last Admin: 01/28/17 11:27 Dose: 200 mls/hr Vancomycin/Sodium Chloride (Vancomycin 1 Gm/Ns 200 Ml) 1 gm in 200 mls @ 166.7 mls/hr IVPB Q24H [facility] Stop: 02/01/17 14:01 Last Admin: 01/28/17 14:42 Dose: 166.7 mls/hr Levetiracetam 750 mg/ Sodium (Chloride) 107.5 mls @ 420 mls/hr IVPB Q12H [facility] Last Admin: 01/28/17 13:30 Dose: 420 mls/hr Azithromycin 500 mg/ Sodium (Chloride) 250 mls @ 250 mls/hr IVPB DAILY [facility] Last Admin: 01/28/17 09:16 Dose: 250 mls/hr Insulin Aspart (Novolog) 0 unit SC Q6 [facility] PRN Reason: Protocol Last Admin: 01/28/17 11:48 Dose: Not Given Insulin Glargine (Lantus) 20 unit SC HS [facility] Last Admin: 01/27/17 21:44 Dose: 20 u Levothyroxine Sodium (Synthroid) 25 mcg PO DAILY@0630 [facility] Last Admin: 01/28/17 06:30 Dose: 25 mcg Metoprolol Tartrate (Lopressor) 25 mg PO BID [facility] Last Admin: 01/28/17 09:14 Dose: 25 mg Nystatin (Nystop Topical Powder) 1 applic TOP BID [facility] Last Admin: 01/28/17 09:15 Dose: 1 applic Pantoprazole Sodium (Protonix Inj) 40 mg IVP DAILY [facility] Last Admin: 01/28/17 09:15 Dose: 40 mg Rosuvastatin Calcium (Crestor) 20 mg PO [facility] Last Admin: 01/27/17 21:41 Dose: 20 mg Saccharomyces Boulardii (Florastor) 250 mg PO BID [facility] Last Admin: 01/28/17 09:14 Dose: 250 mg Spironolactone (Aldactone) 12.5 mg PO BID [facility] Last Admin: 01/28/17 09:13 Dose: 12.5 mg - Labs Labs: 01/28/17 06:28 01/28/17 06:28 Assessment and Plan (1) Pneumonia Status: Acute (2) Respiratory failure Status: Acute
--- NOTE | 2017-01-28 16:13 | CP.CCUPN ---
<Traci Garcia - Last Filed: 01/28/17 16:20> CCU Subjective - Physician Review Subjective (Free Text): 01/28/[address] Ledesma Patient seen and examined at bedside. Intubated and sedated on propofol. No acute events overnight. Patient started on CPAP 01/11 at 14:30 today. Will follow. Critical Care Time Spent (in minutes): 35 CCU Objective - Vital Signs / Intake & Output Vital Signs (Last 4 hours): Vital Signs Pulse Resp BP Pulse Ox 01/28/17 16:08 154/67 H 01/28/17 16:07 89 34 H 100 01/28/17 15:08 90 29 H 166/77 H 100 01/28/17 14:08 76 12 136/71 100 01/28/17 13:09 82 18 157/78 H 93 L Intake and Output (Last 8hrs): Intake & Output 01/28/17 01/28/17 01/28/17 06:59 14:59 22:59 Intake Total 357.6 1038.4 102 Output Total 160 150 Balance 197.6 888.4 102 Weight 102 lb Intake: IV 120 Intake, IV Amount 77.6 638.4 67 Left Medial Port Internal 583 67 Jugular Left Proximal Port 77.6 55.4 0 Internal Jugular Tube Feeding 280 280 35 Output: Urine 160 150 Urine, Voided 160 150 Other: # Voids Urine, Voided 0 0 # Bowel Movements 1 - Physical Exam Head: Positive for: Atraumatic, Normocephalic Pupils: Positive for: PERRL Extroacular Muscles: Positive for: EOMI Mouth: Positive for: Moist Mucous Membranes, Other (intubated) Respiratory/Chest: Positive for: Wheezes, Decreased Breath Sounds, Rhonchi, Other (intubated). Negative for: Respiratory Distress, Accessory Muscle Use Cardiovascular: Positive for: Regular Rate and Rhythm, Murmurs, Normal S1, S2 Abdomen: Negative for: Tenderness, Distention, Peritoneal Signs Upper Extremity: Positive for: Normal Inspection. Negative for: Edema Lower Extremity: Positive for: Normal Inspection. Negative for: Edema Neurological: Positive for: Other (intubated). Negative for: GCS=15 (GCS 11T) Skin: Positive for: Warm Psychiatric: Positive for: Alert, Other (intubated) - Medications Active Medications: Active Medications Generic Name Dose Route Start Last Admin Trade Name Freq PRN Reason Stop Dose Admin Acetaminophen 650 mg 01/17/17 21:49 01/18/17 15:23 Tylenol 325mg Tab PO 650 mg Q6 PRN Administration Pain, moderate (4-7) Albuterol Sulfate 1.25 mg 01/26/17 14:00 01/28/17 14:09 Albuterol 0.042% Inhal Tianna (1.25mg/3ml) Ud INH 1.25 mg RQ6 SCOTTY Administration Aspirin 81 mg 01/28/17 10:00 01/28/17 09:13 Aspirin Chewable PO 81 mg DAILY SCOTTY Administration Enalapril Maleate 5 mg 01/26/17 12:45 01/28/17 09:15 Vasotec PO 5 mg DAILY SCOTTY Administration Enoxaparin Sodium 40 mg 01/18/17 10:00 01/28/17 09:14 Lovenox SC 40 mg DAILY SCOTTY Administration Propofol 1,000 mg in 100 mls @ 1.388 mls/hr 01/24/17 10:00 01/28/17 14:33 Diprivan IV 0 mcg/kg/min .Q24H PRN 0 mls/hr TITRATE PER MD ORDER Titration Protocol 5 MCG/KG/MIN Aztreonam 2 gm/ Sodium 100 mls @ 200 mls/hr 01/27/17 12:00 01/28/17 11:27 Chloride IVPB 200 mls/hr Q8H SCOTTY Administration Vancomycin/Sodium Chloride 1 gm in 200 mls @ 166.7 mls/hr 01/27/17 14:00 14:42 Vancomycin 1 Gm/Ns 200 Ml IVPB 02/01/17 14:01 166.7 mls/hr Q24H SCOTTY Administration Levetiracetam 750 mg/ Sodium 107.5 mls @ 420 mls/hr 01/27/17 13:00 01/28/17 13:30 Chloride IVPB 420 mls/hr Q12H SCOTTY Administration Azithromycin 500 mg/ Sodium 250 mls @ 250 mls/hr 01/28/17 10:00 01/28/17 09: 16 Chloride IVPB 250 mls/hr DAILY SCOTTY Administration Insulin Aspart 0 unit 01/25/17 12:00 01/28/17 11:48 Novolog SC Not Given Q6 SCOTTY Protocol Insulin Glargine 20 unit 01/25/17 22:00 01/27/17 21:44 Lantus SC 20 u HS SCOTTY Administration Levothyroxine Sodium 25 mcg 01/18/17 06:30 01/28/17 06:30 Synthroid PO 25 mcg DAILY@0630 SCOTTY Administration Metoprolol Tartrate 25 mg 01/26/17 18:00 01/28/17 09:14 Lopressor PO 25 mg BID SCOTTY Administration Nystatin 1 applic 01/24/17 18:00 01/28/17 09:15 Nystop Topical Powder TOP 1 applic BID SCOTTY Administration Pantoprazole Sodium 40 mg 01/19/17 10:00 01/28/17 09:15 Protonix Inj IVP 40 mg DAILY SCOTTY Administration Rosuvastatin Calcium 20 mg 01/18/17 22:00 01/27/17 21:41 Crestor PO 20 mg HS SCOTTY Administration Saccharomyces Boulardii 250 mg 01/18/17 18:00 01/28/17 09:14 Florastor PO 250 mg BID SCOTTY Administration Spironolactone 12.5 mg 01/20/17 18:00 01/28/17 09:13 Aldactone PO 12.5 mg BID SCOTTY Administration - Patient Studies Lab Studies: Microbiology Studies 01/27/17 11:31 Gram Stain - Final Sputum Lab Studies 01/28/17 01/28/17 01/28/17 Range/Units 14:14 12:10 11:39 WBC (4.8-10.8) K/uL RBC (3.80-5.20) Mil/uL Hgb (11.0-16.0) g/dL Hct (34.0-47.0) % MCV (81.0-99.0) fL MCH (27.0-31.0) pg MCHC (33.0-37.0) g/dL RDW (11.5-14.5) % Plt Count (130-400) K/uL MPV (7.2-11.7) fL Neut % (Auto) (50.0-75.0) % Lymph % (Auto) (20.0-40.0) % Frederick % (Auto) (0.0-10.0) % Eos % (Auto) (0.0-4.0) % Baso % (Auto) (0.0-2.0) % Neut # (1.8-7.0) K/uL Lymph # (1.0-4.3) K/uL Frederick # (0.0-0.8) K/uL Eos # (0.0-0.7) K/uL Baso # (0.0-0.2) K/uL Puncture Site pCO2 (35-45) mm/Hg pO2 (80-100) mm/Hg HCO3 (21-28) mmol/L ABG pH (7.35-7.45) ABG Total CO2 (22-28) mmol/L ABG O2 Saturation (95-98) % ABG Base Excess (-2.0-3.0) mmol/L ABG Hemoglobin (11.7-17.4) g/dL ABG Carboxyhemoglobin (0.5-1.5) % POC ABG HHb (Measured) (0.0-5.0) % ABG Methemoglobin (0.0-3.0) % Singh Test A-a O2 Difference mm/Hg Respiratory Index Hgb O2 Saturation (95.0-98.0) % Vent Mode Mechanical Rate FiO2 % Tidal Volume PEEP Sodium (132-148) mmol/L Potassium (3.6-5.2) mmol/L Chloride (98-107) mmol/L Carbon Dioxide (22-30) mmol/L Anion Gap (10-20) BUN (7-17) mg/dL Creatinine (0.7-1.2) mg/dL Est GFR ( Amer) Est GFR (Non-Af Amer) POC Glucose (mg/dL) 107 (65-110) mg/dL Random Glucose (65-105) mg/dL Calcium (8.6-10.4) mg/dl Phosphorus (2.5-4.5) mg/dL Magnesium (1.6-2.3) mg/dL Iron 10 L (37-170) ug/dL TIBC 209 L (250-450) ug/dL % Saturation 4.78 L (20-55) Total Bilirubin (0.2-1.3) mg/dL AST (14-36) U/L ALT (9-52) U/L Alkaline Phosphatase (38-126) U/L Total Protein (6.3-8.3) g/dL Albumin (3.5-5.0) g/dL Globulin (2.2-3.9) gm/dL Albumin/Globulin Ratio (1.0-2.1) Stool Occult Blood Negative (NEGATIVE) 01/28/17 01/28/17 01/28/17 Range/Units 11:38 06:28 06:28 WBC 4.1 L (4.8-10.8) K/uL RBC 3.22 L (3.80-5.20) Mil/uL Hgb 8.7 L (11.0-16.0) g/dL Hct 25.7 L (34.0-47.0) % MCV 79.8 L (81.0-99.0) fL MCH 27.0 (27.0-31.0) pg MCHC 33.8 (33.0-37.0) g/dL RDW 15.2 H (11.5-14.5) % Plt Count 150 (130-400) K/uL MPV 9.0 (7.2-11.7) fL Neut % (Auto) 60.7 (50.0-75.0) % Lymph % (Auto) 24.6 (20.0-40.0) % Frederick % (Auto) 8.0 (0.0-10.0) % Eos % (Auto) 5.7 H (0.0-4.0) % Baso % (Auto) 1.0 (0.0-2.0) % Neut # 2.5 (1.8-7.0) K/uL Lymph # 1.0 (1.0-4.3) K/uL Frederick # 0.3 (0.0-0.8) K/uL Eos # 0.2 (0.0-0.7) K/uL Baso # 0.0 (0.0-0.2) K/uL Puncture Site pCO2 (35-45) mm/Hg pO2 (80-100) mm/Hg HCO3 (21-28) mmol/L ABG pH (7.35-7.45) ABG Total CO2 (22-28) mmol/L ABG O2 Saturation (95-98) % ABG Base Excess (-2.0-3.0) mmol/L ABG Hemoglobin (11.7-17.4) g/dL ABG Carboxyhemoglobin (0.5-1.5) % POC ABG HHb (Measured) (0.0-5.0) % ABG Methemoglobin (0.0-3.0) % Singh Test A-a O2 Difference mm/Hg Respiratory Index Hgb O2 Saturation (95.0-98.0) % Vent Mode Mechanical Rate FiO2 % Tidal Volume PEEP Sodium 132 (132-148) mmol/L Potassium 3.8 (3.6-5.2) mmol/L Chloride 102 (98-107) mmol/L Carbon Dioxide 27 (22-30) mmol/L Anion Gap 7 L (10-20) BUN 20 H (7-17) mg/dL Creatinine 0.5 L (0.7-1.2) mg/dL Est GFR ( Amer) > 60 Est GFR (Non-Af Amer) > 60 POC Glucose (mg/dL) 80 (65-110) mg/dL Random Glucose 214 H (65-105) mg/dL Calcium 7.5 L (8.6-10.4) mg/dl Phosphorus 3.0 (2.5-4.5) mg/dL Magnesium 1.9 (1.6-2.3) mg/dL Iron (37-170) ug/dL TIBC (250-450) ug/dL % Saturation (20-55) Total Bilirubin 0.2 (0.2-1.3) mg/dL AST 23 (14-36) U/L ALT 16 (9-52) U/L Alkaline Phosphatase 124 (38-126) U/L Total Protein 5.5 L (6.3-8.3) g/dL Albumin 2.7 L (3.5-5.0) g/dL Globulin 2.8 (2.2-3.9) gm/dL Albumin/Globulin Ratio 0.9 L (1.0-2.1) Stool Occult Blood (NEGATIVE) 01/28/17 01/28/17 01/27/17 Range/Units 06:10 05:14 23:26 WBC (4.8-10.8) K/uL RBC (3.80-5.20) Mil/uL Hgb (11.0-16.0) g/dL Hct (34.0-47.0) % MCV (81.0-99.0) fL MCH (27.0-31.0) pg MCHC (33.0-37.0) g/dL RDW (11.5-14.5) % Plt Count (130-400) K/uL MPV (7.2-11.7) fL Neut % (Auto) (50.0-75.0) % Lymph % (Auto) (20.0-40.0) % Frederick % (Auto) (0.0-10.0) % Eos % (Auto) (0.0-4.0) % Baso % (Auto) (0.0-2.0) % Neut # (1.8-7.0) K/uL Lymph # (1.0-4.3) K/uL Frederick # (0.0-0.8) K/uL Eos # (0.0-0.7) K/uL Baso # (0.0-0.2) K/uL Puncture Site Lr pCO2 31 L (35-45) mm/Hg pO2 171 H (80-100) mm/Hg HCO3 22.9 (21-28) mmol/L ABG pH 7.44 (7.35-7.45) ABG Total CO2 22.1 (22-28) mmol/L ABG O2 Saturation 100.8 H (95-98) % ABG Base Excess -2.6 L (-2.0-3.0) mmol/L ABG Hemoglobin 7.9 L (11.7-17.4) g/dL ABG Carboxyhemoglobin 2.4 H (0.5-1.5) % POC ABG HHb (Measured) -0.8 L (0.0-5.0) % ABG Methemoglobin 0.7 (0.0-3.0) % Singh Test Pos A-a O2 Difference 147.0 mm/Hg Respiratory Index 0.9 Hgb O2 Saturation 97.7 (95.0-98.0) % Vent Mode Prvc Mechanical Rate 12 FiO2 50.0 % Tidal Volume 400 PEEP 5 Sodium (132-148) mmol/L Potassium (3.6-5.2) mmol/L Chloride (98-107) mmol/L Carbon Dioxide (22-30) mmol/L Anion Gap (10-20) BUN (7-17) mg/dL Creatinine (0.7-1.2) mg/dL Est GFR ( Amer) Est GFR (Non-Af Amer) POC Glucose (mg/dL) 222 H 182 H (65-110) mg/dL Random Glucose (65-105) mg/dL Calcium (8.6-10.4) mg/dl Phosphorus (2.5-4.5) mg/dL Magnesium (1.6-2.3) mg/dL Iron (37-170) ug/dL TIBC (250-450) ug/dL % Saturation (20-55) Total Bilirubin (0.2-1.3) mg/dL AST (14-36) U/L ALT (9-52) U/L Alkaline Phosphatase (38-126) U/L Total Protein (6.3-8.3) g/dL Albumin (3.5-5.0) g/dL Globulin (2.2-3.9) gm/dL Albumin/Globulin Ratio (1.0-2.1) Stool Occult Blood (NEGATIVE) 01/27/17 Range/Units 17:52 WBC (4.8-10.8) K/uL RBC (3.80-5.20) Mil/uL Hgb (11.0-16.0) g/dL Hct (34.0-47.0) % MCV (81.0-99.0) fL MCH (27.0-31.0) pg MCHC (33.0-37.0) g/dL RDW (11.5-14.5) % Plt Count (130-400) K/uL MPV (7.2-11.7) fL Neut % (Auto) (50.0-75.0) % Lymph % (Auto) (20.0-40.0) % Frederick % (Auto) (0.0-10.0) % Eos % (Auto) (0.0-4.0) % Baso % (Auto) (0.0-2.0) % Neut # (1.8-7.0) K/uL Lymph # (1.0-4.3) K/uL Frederick # (0.0-0.8) K/uL Eos # (0.0-0.7) K/uL Baso # (0.0-0.2) K/uL Puncture Site pCO2 (35-45) mm/Hg pO2 (80-100) mm/Hg HCO3 (21-28) mmol/L ABG pH (7.35-7.45) ABG Total CO2 (22-28) mmol/L ABG O2 Saturation (95-98) % ABG Base Excess (-2.0-3.0) mmol/L ABG Hemoglobin (11.7-17.4) g/dL ABG Carboxyhemoglobin (0.5-1.5) % POC ABG HHb (Measured) (0.0-5.0) % ABG Methemoglobin (0.0-3.0) % Singh Test A-a O2 Difference mm/Hg Respiratory Index Hgb O2 Saturation (95.0-98.0) % Vent Mode Mechanical Rate FiO2 % Tidal Volume PEEP Sodium (132-148) mmol/L Potassium (3.6-5.2) mmol/L Chloride (98-107) mmol/L Carbon Dioxide (22-30) mmol/L Anion Gap (10-20) BUN (7-17) mg/dL Creatinine (0.7-1.2) mg/dL Est GFR ( Amer) Est GFR (Non-Af Amer) POC Glucose (mg/dL) 141 H (65-110) mg/dL Random Glucose (65-105) mg/dL Calcium (8.6-10.4) mg/dl Phosphorus (2.5-4.5) mg/dL Magnesium (1.6-2.3) mg/dL Iron (37-170) ug/dL TIBC (250-450) ug/dL % Saturation (20-55) Total Bilirubin (0.2-1.3) mg/dL AST (14-36) U/L ALT (9-52) U/L Alkaline Phosphatase (38-126) U/L Total Protein (6.3-8.3) g/dL Albumin (3.5-5.0) g/dL Globulin (2.2-3.9) gm/dL Albumin/Globulin Ratio (1.0-2.1) Stool Occult Blood (NEGATIVE) Laboratory Results - last 24 hr 01/27/17 01/27/17 01/28/17 17:52 23:26 05:14 WBC RBC Hgb Hct MCV MCH MCHC RDW Plt Count MPV Neut % (Auto) Lymph % (Auto) Frederick % (Auto) Eos % (Auto) Baso % (Auto) Neut # Lymph # Frederick # Eos # Baso # Puncture Site Lr pCO2 31 L pO2 171 H HCO3 22.9 ABG pH 7.44 ABG Total CO2 22.1 ABG O2 Saturation 100.8 H ABG Base Excess -2.6 L ABG Hemoglobin 7.9 L ABG Carboxyhemoglobin 2.4 H POC ABG HHb (Measured) -0.8 L ABG Methemoglobin 0.7 Singh Test Pos A-a O2 Difference 147.0 Respiratory Index 0.9 Hgb O2 Saturation 97.7 Vent Mode Prvc Mechanical Rate 12 FiO2 50.0 Tidal Volume 400 PEEP 5 Sodium Potassium Chloride Carbon Dioxide Anion Gap BUN Creatinine Est GFR ( Amer) Est GFR (Non-Af Amer) POC Glucose (mg/dL) 141 H 182 H Random Glucose Calcium Phosphorus Magnesium Iron TIBC % Saturation Total Bilirubin AST ALT Alkaline Phosphatase Total Protein Albumin Globulin Albumin/Globulin Ratio Stool Occult Blood 01/28/17 01/28/17 01/28/17 06:10 06:28 06:28 WBC 4.1 L RBC 3.22 L Hgb 8.7 L Hct 25.7 L MCV 79.8 L MCH 27.0 MCHC 33.8 RDW 15.2 H Plt Count 150 MPV 9.0 Neut % (Auto) 60.7 Lymph % (Auto) 24.6 Frederick % (Auto) 8.0 Eos % (Auto) 5.7 H Baso % (Auto) 1.0 Neut # 2.5 Lymph # 1.0 Frederick # 0.3 Eos # 0.2 Baso # 0.0 Puncture Site pCO2 pO2 HCO3 ABG pH ABG Total CO2 ABG O2 Saturation ABG Base Excess ABG Hemoglobin ABG Carboxyhemoglobin POC ABG HHb (Measured) ABG Methemoglobin Singh Test A-a O2 Difference Respiratory Index Hgb O2 Saturation Vent Mode Mechanical Rate FiO2 Tidal Volume PEEP Sodium 132 Potassium 3.8 Chloride 102 Carbon Dioxide 27 Anion Gap 7 L BUN 20 H Creatinine 0.5 L Est GFR ( Amer) > 60 Est GFR (Non-Af Amer) > 60 POC Glucose (mg/dL) 222 H Random Glucose 214 H Calcium 7.5 L Phosphorus 3.0 Magnesium 1.9 Iron TIBC % Saturation Total Bilirubin 0.2 AST 23 ALT 16 Alkaline Phosphatase 124 Total Protein 5.5 L Albumin 2.7 L Globulin 2.8 Albumin/Globulin Ratio 0.9 L Stool Occult Blood 01/28/17 01/28/17 01/28/17 11:38 11:39 12:10 WBC RBC Hgb Hct MCV MCH MCHC RDW Plt Count MPV Neut % (Auto) Lymph % (Auto) Frederick % (Auto) Eos % (Auto) Baso % (Auto) Neut # Lymph # Frederick # Eos # Baso # Puncture Site pCO2 pO2 HCO3 ABG pH ABG Total CO2 ABG O2 Saturation ABG Base Excess ABG Hemoglobin ABG Carboxyhemoglobin POC ABG HHb (Measured) ABG Methemoglobin Singh Test A-a O2 Difference Respiratory Index Hgb O2 Saturation Vent Mode Mechanical Rate FiO2 Tidal Volume PEEP Sodium Potassium Chloride Carbon Dioxide Anion Gap BUN Creatinine Est GFR ( Amer) Est GFR (Non-Af Amer) POC Glucose (mg/dL) 80 107 Random Glucose Calcium Phosphorus Magnesium Iron 10 L TIBC 209 L % Saturation 4.78 L Total Bilirubin AST ALT Alkaline Phosphatase Total Protein Albumin Globulin Albumin/Globulin Ratio Stool Occult Blood 01/28/17 14:14 WBC RBC Hgb Hct MCV MCH MCHC RDW Plt Count MPV Neut % (Auto) Lymph % (Auto) Frederick % (Auto) Eos % (Auto) Baso % (Auto) Neut # Lymph # Frederick # Eos # Baso # Puncture Site pCO2 pO2 HCO3 ABG pH ABG Total CO2 ABG O2 Saturation ABG Base Excess ABG Hemoglobin ABG Carboxyhemoglobin POC ABG HHb (Measured) ABG Methemoglobin Sinhg Test A-a O2 Difference Respiratory Index Hgb O2 Saturation Vent Mode Mechanical Rate FiO2 Tidal Volume PEEP Sodium Potassium Chloride Carbon Dioxide Anion Gap BUN Creatinine Est GFR ( Amer) Est GFR (Non-Af Amer) POC Glucose (mg/dL) Random Glucose Calcium Phosphorus Magnesium Iron TIBC % Saturation Total Bilirubin AST ALT Alkaline Phosphatase Total Protein Albumin Globulin Albumin/Globulin Ratio Stool Occult Blood Negative Fingerstick Blood Sugar Results: 80 Assessment/Plan - Assessment and Plan (Free Text) Assessment: Patient is an 81 year old female presenting to the hospital with chest pain that needed to be intubated due to respiratory failure from hypercapnia. Patient was transferred to the ICU for further evaluation. Progress Note: Assessment Plan Neuro: History of Seizures: Keppra 750mg PO BID Sedation: Propofol 5mcg/kg/min Pain: Psych: history of Szhizophrenia Haldol 1mg Q12H Ativan 0.5mg Q6H PRN Cardio: 01/08 Echo: Grade I abnormal relaxation pattern. global hypokinesis, systolic function is mild to moderately reduced. Left atrium is mildly dilated. severe pulmonary HTN. mildly dilated left atrium, severe left ventricular dysfunction. EF 37% Cardio Consult: Dr. Crowell 01/25 BNP ASA 81mg POQD Enlapril 2.5mg POQD -increased to 5mg 01/26 Cardizem 30mg POQID Metoprolol tartrate 25mg POBID Enlapril 5mg POQD Pulm: 01/24 intubated 01/26 CXR: increased pleural effusions Vent Settings:450///50% 01/25 ABG: pH 7.53/ pO2 127/ pCO2 26/ pHCO3 25.2 01/26 ABG: pH 7.51/ pCO2 32/ pO2 108/ pHCO3 27.0 01/27/17 05:11 pH 7.49 35, 84, 27.5, Vent Settings CPAP 50% 21/06 01/27 CPAP trials today 01/26 CXR: increased pleural effusions Albuterol 1.25mg INH RQ6H SCOTTY Lasix 40mg IVP STAT Endo: Hypothyroid Diabetes Novolin hold Levothyroxine 25mcgPOQD Insulin SCQ6H low dose sliding scale ISS low dose q6h Glucerna 1.5 initiate 20cc/hr, increase by 5cc/hr, goal rate 35cc/hr GI: Tube Feeds: Glucerna 1.5 initiate 20cc/hr, increase by 5cc/hr, goal rate 35cc/ hr : n/a Renal: I/O: 1461.1/725 = 736.1 24 UOP 725cc/hr 01/25 repleted potassium Heme/Onc: Iron deficiency anemia 01/25 H/H: 10.0/29.9 01/26 H/H 9.7/29.0 01/27 H/H: 9.0/26.7 01/28 H/H: 8.7/25.7 Iron 10 TIBC 209 % 4.78 Ferrlecit 125mg IVPB QD MSK: n/a ID: 01/25 WBC 5.0 from 7.2 f/u AM CBC Nystatin 1 top BID Tylenol 650mg POQ6H Azithromycin 500mg IVPB QD Prophylaxis: DVT: Lovenox 40mg SC QD GI: Protonix 40mg IVP QD Folic Acid 1mg PO daily Florastor 250mg PO BID discussed with Dr. Baltazar Garcia DO PGY1 - Date & Time Date: 01/28/17 Time: 16:20 <Franklin Ledesma P - Last Filed: 01/28/17 19:43> CCU Objective - Vital Signs / Intake & Output Vital Signs (Last 4 hours): Vital Signs Temp Pulse Resp BP Pulse Ox 01/28/17 19:25 102 H 30 H 164/87 H 100 01/28/17 18:08 87 14 146/73 100 01/28/17 17:42 153/70 H 01/28/17 17:08 92 H 35 H 153/70 H 100 01/28/17 16:08 154/67 H 01/28/17 16:07 89 34 H 100 01/28/17 16:00 97.9 F Intake and Output (Last 8hrs): Intake & Output 01/28/17 01/28/17 01/28/17 06:59 14:59 22:59 Intake Total 357.6 1038.4 242 Output Total 160 150 150 Balance 197.6 888.4 92 Weight 102 lb 103 lb 6.4 oz Intake: IV 120 Intake, IV Amount 77.6 638.4 67 Left Medial Port Internal 583 67 Jugular Left Proximal Port 77.6 55.4 0 Internal Jugular Tube Feeding 280 280 175 Output: Urine 160 150 150 Urine, Voided 160 150 150 Other: # Voids Urine, Voided 0 0 # Bowel Movements 1 1 - Medications Active Medications: Active Medications Generic Name Dose Route Start Last Admin Trade Name Freq PRN Reason Stop Dose Admin Acetaminophen 650 mg 01/17/17 21:49 01/18/17 15:23 Tylenol 325mg Tab PO 650 mg Q6 PRN Administration Pain, moderate (4-7) Albuterol Sulfate 1.25 mg 01/26/17 14:00 01/28/17 19:19 Albuterol 0.042% Inhal Tianna (1.25mg/3ml) Ud INH 1.25 mg RQ6 SCOTTY Administration Aspirin 81 mg 01/28/17 10:00 01/28/17 09:13 Aspirin Chewable PO 81 mg DAILY SCOTTY Administration Enalapril Maleate 5 mg 01/26/17 12:45 01/28/17 09:15 Vasotec PO 5 mg DAILY SCOTTY Administration Enoxaparin Sodium 40 mg 01/18/17 10:00 01/28/17 09:14 Lovenox SC 40 mg DAILY SCOTTY Administration Ferric Sodium Gluconate Complex 125 mg 01/29/17 10:00 Ferrlecit IVPB 02/06/17 10:01 DAILY SCOTTY Propofol 1,000 mg in 100 mls @ 1.388 mls/hr 01/24/17 10:00 01/28/17 14:33 Diprivan IV 0 mcg/kg/min .Q24H PRN 0 mls/hr TITRATE PER MD ORDER Titration Protocol 5 MCG/KG/MIN Aztreonam 2 gm/ Sodium 100 mls @ 200 mls/hr 01/27/17 12:00 01/28/17 11:27 Chloride IVPB 200 mls/hr Q8H SCOTTY Administration Vancomycin/Sodium Chloride 1 gm in 200 mls @ 166.7 mls/hr 01/27/17 14:00 14:42 Vancomycin 1 Gm/Ns 200 Ml IVPB 02/01/17 14:01 166.7 mls/hr Q24H SCOTTY Administration Levetiracetam 750 mg/ Sodium 107.5 mls @ 420 mls/hr 01/27/17 13:00 01/28/17 13:30 Chloride IVPB 420 mls/hr Q12H SCOTTY Administration Azithromycin 500 mg/ Sodium 250 mls @ 250 mls/hr 01/28/17 10:00 01/28/17 09: 16 Chloride IVPB 250 mls/hr DAILY SCOTTY Administration Insulin Aspart 0 unit 01/25/17 12:00 01/28/17 17:36 Novolog SC Not Given Q6 SCOTTY Protocol Insulin Glargine 20 unit 01/25/17 22:00 01/27/17 21:44 Lantus SC 20 u HS SCOTTY Administration Levothyroxine Sodium 25 mcg 01/18/17 06:30 01/28/17 06:30 Synthroid PO 25 mcg DAILY@0630 SCOTTY Administration Metoprolol Tartrate 25 mg 01/26/17 18:00 01/28/17 17:42 Lopressor PO 25 mg BID SCOTTY Administration Nystatin 1 applic 01/24/17 18:00 01/28/17 17:42 Nystop Topical Powder TOP 1 applic BID SCOTTY Administration Pantoprazole Sodium 40 mg 01/19/17 10:00 01/28/17 09:15 Protonix Inj IVP 40 mg DAILY SCOTTY Administration Rosuvastatin Calcium 20 mg 01/18/17 22:00 01/27/17 21:41 Crestor PO 20 mg HS SCOTTY Administration Saccharomyces Boulardii 250 mg 01/18/17 18:00 01/28/17 17:41 Florastor PO 250 mg BID SCOTTY Administration Spironolactone 12.5 mg 01/20/17 18:00 01/28/17 17:41 Aldactone PO 12.5 mg BID SCOTTY Administration - Patient Studies Lab Studies: Microbiology Studies 01/27/17 11:33 Urine Culture - Preliminary Urine,Clean Catch Gram Positive Cocci 01/27/17 11:31 Gram Stain - Final Sputum Lab Studies 01/28/17 01/28/17 01/28/17 Range/Units 17:34 14:14 12:10 WBC (4.8-10.8) K/uL RBC (3.80-5.20) Mil/uL Hgb (11.0-16.0) g/dL Hct (34.0-47.0) % MCV (81.0-99.0) fL MCH (27.0-31.0) pg MCHC (33.0-37.0) g/dL RDW (11.5-14.5) % Plt Count (130-400) K/uL MPV (7.2-11.7) fL Neut % (Auto) (50.0-75.0) % Lymph % (Auto) (20.0-40.0) % Frederick % (Auto) (0.0-10.0) % Eos % (Auto) (0.0-4.0) % Baso % (Auto) (0.0-2.0) % Neut # (1.8-7.0) K/uL Lymph # (1.0-4.3) K/uL Frederick # (0.0-0.8) K/uL Eos # (0.0-0.7) K/uL Baso # (0.0-0.2) K/uL Puncture Site pCO2 (35-45) mm/Hg pO2 (80-100) mm/Hg HCO3 (21-28) mmol/L ABG pH (7.35-7.45) ABG Total CO2 (22-28) mmol/L ABG O2 Saturation (95-98) % ABG Base Excess (-2.0-3.0) mmol/L ABG Hemoglobin (11.7-17.4) g/dL ABG Carboxyhemoglobin (0.5-1.5) % POC ABG HHb (Measured) (0.0-5.0) % ABG Methemoglobin (0.0-3.0) % Singh Test A-a O2 Difference mm/Hg Respiratory Index Hgb O2 Saturation (95.0-98.0) % Vent Mode Mechanical Rate FiO2 % Tidal Volume PEEP Sodium (132-148) mmol/L Potassium (3.6-5.2) mmol/L Chloride (98-107) mmol/L Carbon Dioxide (22-30) mmol/L Anion Gap (10-20) BUN (7-17) mg/dL Creatinine (0.7-1.2) mg/dL Est GFR ( Amer) Est GFR (Non-Af Amer) POC Glucose (mg/dL) 123 H 107 (65-110) mg/dL Random Glucose (65-105) mg/dL Calcium (8.6-10.4) mg/dl Phosphorus (2.5-4.5) mg/dL Magnesium (1.6-2.3) mg/dL Iron (37-170) ug/dL TIBC (250-450) ug/dL % Saturation (20-55) Total Bilirubin (0.2-1.3) mg/dL AST (14-36) U/L ALT (9-52) U/L Alkaline Phosphatase (38-126) U/L Total Protein (6.3-8.3) g/dL Albumin (3.5-5.0) g/dL Globulin (2.2-3.9) gm/dL Albumin/Globulin Ratio (1.0-2.1) Stool Occult Blood Negative (NEGATIVE) 01/28/17 01/28/17 01/28/17 Range/Units 11:39 11:38 06:28 WBC (4.8-10.8) K/uL RBC (3.80-5.20) Mil/uL Hgb (11.0-16.0) g/dL Hct (34.0-47.0) % MCV (81.0-99.0) fL MCH (27.0-31.0) pg MCHC (33.0-37.0) g/dL RDW (11.5-14.5) % Plt Count (130-400) K/uL MPV (7.2-11.7) fL Neut % (Auto) (50.0-75.0) % Lymph % (Auto) (20.0-40.0) % Frederick % (Auto) (0.0-10.0) % Eos % (Auto) (0.0-4.0) % Baso % (Auto) (0.0-2.0) % Neut # (1.8-7.0) K/uL Lymph # (1.0-4.3) K/uL Frederick # (0.0-0.8) K/uL Eos # (0.0-0.7) K/uL Baso # (0.0-0.2) K/uL Puncture Site pCO2 (35-45) mm/Hg pO2 (80-100) mm/Hg HCO3 (21-28) mmol/L ABG pH (7.35-7.45) ABG Total CO2 (22-28) mmol/L ABG O2 Saturation (95-98) % ABG Base Excess (-2.0-3.0) mmol/L ABG Hemoglobin (11.7-17.4) g/dL ABG Carboxyhemoglobin (0.5-1.5) % POC ABG HHb (Measured) (0.0-5.0) % ABG Methemoglobin (0.0-3.0) % Singh Test A-a O2 Difference mm/Hg Respiratory Index Hgb O2 Saturation (95.0-98.0) % Vent Mode Mechanical Rate FiO2 % Tidal Volume PEEP Sodium 132 (132-148) mmol/L Potassium 3.8 (3.6-5.2) mmol/L Chloride 102 (98-107) mmol/L Carbon Dioxide 27 (22-30) mmol/L Anion Gap 7 L (10-20) BUN 20 H (7-17) mg/dL Creatinine 0.5 L (0.7-1.2) mg/dL Est GFR ( Amer) > 60 Est GFR (Non-Af Amer) > 60 POC Glucose (mg/dL) 80 (65-110) mg/dL Random Glucose 214 H (65-105) mg/dL Calcium 7.5 L (8.6-10.4) mg/dl Phosphorus 3.0 (2.5-4.5) mg/dL Magnesium 1.9 (1.6-2.3) mg/dL Iron 10 L (37-170) ug/dL TIBC 209 L (250-450) ug/dL % Saturation 4.78 L (20-55) Total Bilirubin 0.2 (0.2-1.3) mg/dL AST 23 (14-36) U/L ALT 16 (9-52) U/L Alkaline Phosphatase 124 (38-126) U/L Total Protein 5.5 L (6.3-8.3) g/dL Albumin 2.7 L (3.5-5.0) g/dL Globulin 2.8 (2.2-3.9) gm/dL Albumin/Globulin Ratio 0.9 L (1.0-2.1) Stool Occult Blood (NEGATIVE) 01/28/17 01/28/17 01/28/17 Range/Units 06:28 06:10 05:14 WBC 4.1 L (4.8-10.8) K/uL RBC 3.22 L (3.80-5.20) Mil/uL Hgb 8.7 L (11.0-16.0) g/dL Hct 25.7 L (34.0-47.0) % MCV 79.8 L (81.0-99.0) fL MCH 27.0 (27.0-31.0) pg MCHC 33.8 (33.0-37.0) g/dL RDW 15.2 H (11.5-14.5) % Plt Count 150 (130-400) K/uL MPV 9.0 (7.2-11.7) fL Neut % (Auto) 60.7 (50.0-75.0) % Lymph % (Auto) 24.6 (20.0-40.0) % Frederick % (Auto) 8.0 (0.0-10.0) % Eos % (Auto) 5.7 H (0.0-4.0) % Baso % (Auto) 1.0 (0.0-2.0) % Neut # 2.5 (1.8-7.0) K/uL Lymph # 1.0 (1.0-4.3) K/uL Frederick # 0.3 (0.0-0.8) K/uL Eos # 0.2 (0.0-0.7) K/uL Baso # 0.0 (0.0-0.2) K/uL Puncture Site Lr pCO2 31 L (35-45) mm/Hg pO2 171 H (80-100) mm/Hg HCO3 22.9 (21-28) mmol/L ABG pH 7.44 (7.35-7.45) ABG Total CO2 22.1 (22-28) mmol/L ABG O2 Saturation 100.8 H (95-98) % ABG Base Excess -2.6 L (-2.0-3.0) mmol/L ABG Hemoglobin 7.9 L (11.7-17.4) g/dL ABG Carboxyhemoglobin 2.4 H (0.5-1.5) % POC ABG HHb (Measured) -0.8 L (0.0-5.0) % ABG Methemoglobin 0.7 (0.0-3.0) % Singh Test Pos A-a O2 Difference 147.0 mm/Hg Respiratory Index 0.9 Hgb O2 Saturation 97.7 (95.0-98.0) % Vent Mode Prvc Mechanical Rate 12 FiO2 50.0 % Tidal Volume 400 PEEP 5 Sodium (132-148) mmol/L Potassium (3.6-5.2) mmol/L Chloride (98-107) mmol/L Carbon Dioxide (22-30) mmol/L Anion Gap (10-20) BUN (7-17) mg/dL Creatinine (0.7-1.2) mg/dL Est GFR ( Amer) Est GFR (Non-Af Amer) POC Glucose (mg/dL) 222 H (65-110) mg/dL Random Glucose (65-105) mg/dL Calcium (8.6-10.4) mg/dl Phosphorus (2.5-4.5) mg/dL Magnesium (1.6-2.3) mg/dL Iron (37-170) ug/dL TIBC (250-450) ug/dL % Saturation (20-55) Total Bilirubin (0.2-1.3) mg/dL AST (14-36) U/L ALT (9-52) U/L Alkaline Phosphatase (38-126) U/L Total Protein (6.3-8.3) g/dL Albumin (3.5-5.0) g/dL Globulin (2.2-3.9) gm/dL Albumin/Globulin Ratio (1.0-2.1) Stool Occult Blood (NEGATIVE) 01/27/17 01/27/17 Range/Units 23:26 17:52 WBC (4.8-10.8) K/uL RBC (3.80-5.20) Mil/uL Hgb (11.0-16.0) g/dL Hct (34.0-47.0) % MCV (81.0-99.0) fL MCH (27.0-31.0) pg MCHC (33.0-37.0) g/dL RDW (11.5-14.5) % Plt Count (130-400) K/uL MPV (7.2-11.7) fL Neut % (Auto) (50.0-75.0) % Lymph % (Auto) (20.0-40.0) % Frederick % (Auto) (0.0-10.0) % Eos % (Auto) (0.0-4.0) % Baso % (Auto) (0.0-2.0) % Neut # (1.8-7.0) K/uL Lymph # (1.0-4.3) K/uL Frederick # (0.0-0.8) K/uL Eos # (0.0-0.7) K/uL Baso # (0.0-0.2) K/uL Puncture Site pCO2 (35-45) mm/Hg pO2 (80-100) mm/Hg HCO3 (21-28) mmol/L ABG pH (7.35-7.45) ABG Total CO2 (22-28) mmol/L ABG O2 Saturation (95-98) % ABG Base Excess (-2.0-3.0) mmol/L ABG Hemoglobin (11.7-17.4) g/dL ABG Carboxyhemoglobin (0.5-1.5) % POC ABG HHb (Measured) (0.0-5.0) % ABG Methemoglobin (0.0-3.0) % Singh Test A-a O2 Difference mm/Hg Respiratory Index Hgb O2 Saturation (95.0-98.0) % Vent Mode Mechanical Rate FiO2 % Tidal Volume PEEP Sodium (132-148) mmol/L Potassium (3.6-5.2) mmol/L Chloride (98-107) mmol/L Carbon Dioxide (22-30) mmol/L Anion Gap (10-20) BUN (7-17) mg/dL Creatinine (0.7-1.2) mg/dL Est GFR ( Amer) Est GFR (Non-Af Amer) POC Glucose (mg/dL) 182 H 141 H (65-110) mg/dL Random Glucose (65-105) mg/dL Calcium (8.6-10.4) mg/dl Phosphorus (2.5-4.5) mg/dL Magnesium (1.6-2.3) mg/dL Iron (37-170) ug/dL TIBC (250-450) ug/dL % Saturation (20-55) Total Bilirubin (0.2-1.3) mg/dL AST (14-36) U/L ALT (9-52) U/L Alkaline Phosphatase (38-126) U/L Total Protein (6.3-8.3) g/dL Albumin (3.5-5.0) g/dL Globulin (2.2-3.9) gm/dL Albumin/Globulin Ratio (1.0-2.1) Stool Occult Blood (NEGATIVE) Laboratory Results - last 24 hr 01/27/17 01/27/17 01/28/17 17:52 23:26 05:14 WBC RBC Hgb Hct MCV MCH MCHC RDW Plt Count MPV Neut % (Auto) Lymph % (Auto) Frederick % (Auto) Eos % (Auto) Baso % (Auto) Neut # Lymph # Frederick # Eos # Baso # Puncture Site Lr pCO2 31 L pO2 171 H HCO3 22.9 ABG pH 7.44 ABG Total CO2 22.1 ABG O2 Saturation 100.8 H ABG Base Excess -2.6 L ABG Hemoglobin 7.9 L ABG Carboxyhemoglobin 2.4 H POC ABG HHb (Measured) -0.8 L ABG Methemoglobin 0.7 Singh Test Pos A-a O2 Difference 147.0 Respiratory Index 0.9 Hgb O2 Saturation 97.7 Vent Mode Prvc Mechanical Rate 12 FiO2 50.0 Tidal Volume 400 PEEP 5 Sodium Potassium Chloride Carbon Dioxide Anion Gap BUN Creatinine Est GFR ( Amer) Est GFR (Non-Af Amer) POC Glucose (mg/dL) 141 H 182 H Random Glucose Calcium Phosphorus Magnesium Iron TIBC % Saturation Total Bilirubin AST ALT Alkaline Phosphatase Total Protein Albumin Globulin Albumin/Globulin Ratio Stool Occult Blood 01/28/17 01/28/17 01/28/17 06:10 06:28 06:28 WBC 4.1 L RBC 3.22 L Hgb 8.7 L Hct 25.7 L MCV 79.8 L MCH 27.0 MCHC 33.8 RDW 15.2 H Plt Count 150 MPV 9.0 Neut % (Auto) 60.7 Lymph % (Auto) 24.6 Frederick % (Auto) 8.0 Eos % (Auto) 5.7 H Baso % (Auto) 1.0 Neut # 2.5 Lymph # 1.0 Frederick # 0.3 Eos # 0.2 Baso # 0.0 Puncture Site pCO2 pO2 HCO3 ABG pH ABG Total CO2 ABG O2 Saturation ABG Base Excess ABG Hemoglobin ABG Carboxyhemoglobin POC ABG HHb (Measured) ABG Methemoglobin Singh Test A-a O2 Difference Respiratory Index Hgb O2 Saturation Vent Mode Mechanical Rate FiO2 Tidal Volume PEEP Sodium 132 Potassium 3.8 Chloride 102 Carbon Dioxide 27 Anion Gap 7 L BUN 20 H Creatinine 0.5 L Est GFR ( Amer) > 60 Est GFR (Non-Af Amer) > 60 POC Glucose (mg/dL) 222 H Random Glucose 214 H Calcium 7.5 L Phosphorus 3.0 Magnesium 1.9 Iron TIBC % Saturation Total Bilirubin 0.2 AST 23 ALT 16 Alkaline Phosphatase 124 Total Protein 5.5 L Albumin 2.7 L Globulin 2.8 Albumin/Globulin Ratio 0.9 L Stool Occult Blood 01/28/17 01/28/17 01/28/17 11:38 11:39 12:10 WBC RBC Hgb Hct MCV MCH MCHC RDW Plt Count MPV Neut % (Auto) Lymph % (Auto) Frederick % (Auto) Eos % (Auto) Baso % (Auto) Neut # Lymph # Frederick # Eos # Baso # Puncture Site pCO2 pO2 HCO3 ABG pH ABG Total CO2 ABG O2 Saturation ABG Base Excess ABG Hemoglobin ABG Carboxyhemoglobin POC ABG HHb (Measured) ABG Methemoglobin Singh Test A-a O2 Difference Respiratory Index Hgb O2 Saturation Vent Mode Mechanical Rate FiO2 Tidal Volume PEEP Sodium Potassium Chloride Carbon Dioxide Anion Gap BUN Creatinine Est GFR ( Amer) Est GFR (Non-Af Amer) POC Glucose (mg/dL) 80 107 Random Glucose Calcium Phosphorus Magnesium Iron 10 L TIBC 209 L % Saturation 4.78 L Total Bilirubin AST ALT Alkaline Phosphatase Total Protein Albumin Globulin Albumin/Globulin Ratio Stool Occult Blood 01/28/17 01/28/17 14:14 17:34 WBC RBC Hgb Hct MCV MCH MCHC RDW Plt Count MPV Neut % (Auto) Lymph % (Auto) Frederick % (Auto) Eos % (Auto) Baso % (Auto) Neut # Lymph # Frederick # Eos # Baso # Puncture Site pCO2 pO2 HCO3 ABG pH ABG Total CO2 ABG O2 Saturation ABG Base Excess ABG Hemoglobin ABG Carboxyhemoglobin POC ABG HHb (Measured) ABG Methemoglobin Singh Test A-a O2 Difference Respiratory Index Hgb O2 Saturation Vent Mode Mechanical Rate FiO2 Tidal Volume PEEP Sodium Potassium Chloride Carbon Dioxide Anion Gap BUN Creatinine Est GFR ( Amer) Est GFR (Non-Af Amer) POC Glucose (mg/dL) 123 H Random Glucose Calcium Phosphorus Magnesium Iron TIBC % Saturation Total Bilirubin AST ALT Alkaline Phosphatase Total Protein Albumin Globulin Albumin/Globulin Ratio Stool Occult Blood Negative Attending/Attestation - Attestation I have personally seen and examined this patient.: Yes I have fully participated in the care of the patient.: Yes I have reviewed all pertinent clinical information: Yes Notes (Text): No events, ABG, CXR improved, patient taken off the sedation and did CPAP PS trial 01/11 on 40%, tolerating RR in about high 20's, tidal vol low 300, patient not in physical distress, but RR some times goes in mid 30's, moderate thick secretions. H/o CHF, low ef of 37%, also suspected aspiration, on as needed lasix, and abx. Patient probably be extubated in the morning, but didn't can not r/o aspiration related problems, should get weaning trial. Anemia, iorn deficiency, should evaluated by gi outpt vs inpatient, iv iron ordered. GI/dvt prophylaxis.
[2017-01-28] MEDS: (Lantus) Insulin Glargine, Recombinant SC SCH (21:37)
--- NOTE | 2017-01-28 22:09 | PN ---
DATE: SUBJECTIVE: The patient, when I saw her , she was placed on CPAP; however, no plans for extubation so far. No reported hypotension and no reported ventricular arrhythmia or sustained supraventricular tachycardia. PHYSICAL EXAMINATION: VITAL SIGNS: Blood pressure 153/70, heart rate 92, temperature 97.9, respirations 29. HEENT: Pale conjunctivae. CHEST: Bilateral rhonchi. HEART: S1 and S2, regular. EXTREMITIES: Significant contracture deformity. LABORATORY DATA: Hemoglobin and hematocrit 8.7 and 25.7, white count 4.1, platelet count 150,000. SMA-7: Sodium 132, potassium 3.8, chloride 102, CO2 of 27, glucose 214, BUN 20, creatinine 0.5. Serum iron, total iron binding capacity, and iron saturations are all below normal. ASSESSMENT: 1. Respiratory failure. 2. Congestive heart failure. 3. Anemia. 4. History of paroxysmal reentrant supraventricular tachycardia. 5. Urinary tract infection with Escherichia colli and yeast species. RECOMMENDATIONS: Continue current albuterol inhaler, continue Aldactone 12.5 mg twice a day, aspirin 81 mg once a day, continue Azactam and IV Zithromax. Continue Lopressor 25 mg twice a day, Synthroid 25 mcg once a day, vancomycin 1 g intravenously daily, and enalapril 5 mg daily. Florian Crowell MD
--- NOTE | 2017-01-28 23:42 | CP.PCM.PN ---
Subjective - Date & Time of Evaluation Date of Evaluation: 01/28/17 Time of Evaluation: 19:00 - Subjective Subjective: Patient seen and examined at bedside. Intubated and sedated on propofol. No acute events overnight. Patient started on CPAP 01/11 at 14:30 today. Will follow. Objective - Vital Signs/Intake and Output Vital Signs (last 24 hours): Temp Pulse Resp BP Pulse Ox 97.8 F 111 H 34 H 164/87 H 99 01/28/17 20:00 01/28/17 20:00 01/28/17 20:00 01/28/17 20:00 01/28/17 20:00 Intake and Output: 01/28/17 01/29/17 18:59 06:59 Intake Total 1245.4 281 Output Total 300 Balance 945.4 281 - Medications Medications: Current Medications Acetaminophen (Tylenol 325mg Tab) 650 mg PO Q6 PRN PRN Reason: Pain, moderate (4-7) Last Admin: 01/18/17 15:23 Dose: 650 mg Albuterol Sulfate (Albuterol 0.042% Inhal [place] (1.25mg/3ml) Ud) 1.25 mg INH RQ6 [facility] Last Admin: 01/28/17 19:19 Dose: 1.25 mg Aspirin (Aspirin Chewable) 81 mg PO DAILY [facility] Last Admin: 01/28/17 09:13 Dose: 81 mg Enalapril Maleate (Vasotec) 5 mg PO DAILY [facility] Last Admin: 01/28/17 09:15 Dose: 5 mg Enoxaparin Sodium (Lovenox) 40 mg SC DAILY [facility] Last Admin: 01/28/17 09:14 Dose: 40 mg Ferric Sodium Gluconate Complex (Ferrlecit) 125 mg IVPB DAILY [facility] Stop: 02/06/17 10:01 Propofol (Diprivan) 1,000 mg in 100 mls @ 1.388 mls/hr IV .Q24H PRN; Protocol; 5 MCG/KG/MIN PRN Reason: TITRATE PER MD ORDER Last Titration: 01/28/17 14:33 Dose: 0 mcg/kg/min, 0 mls/hr Aztreonam 2 gm/ Sodium (Chloride) 100 mls @ 200 mls/hr IVPB Q8H [facility] Last Admin: 01/28/17 19:59 Dose: 200 mls/hr Vancomycin/Sodium Chloride (Vancomycin 1 Gm/Ns 200 Ml) 1 gm in 200 mls @ 166.7 mls/hr IVPB Q24H [facility] Stop: 02/01/17 14:01 Last Admin: 01/28/17 14:42 Dose: 166.7 mls/hr Levetiracetam 750 mg/ Sodium (Chloride) 107.5 mls @ 420 mls/hr IVPB Q12H [facility] Last Admin: 01/28/17 13:30 Dose: 420 mls/hr Azithromycin 500 mg/ Sodium (Chloride) 250 mls @ 250 mls/hr IVPB DAILY [facility] Last Admin: 01/28/17 09:16 Dose: 250 mls/hr Insulin Aspart (Novolog) 0 unit SC Q6 [facility] PRN Reason: Protocol Last Admin: 01/28/17 17:36 Dose: Not Given Insulin Glargine (Lantus) 20 unit SC [facility] Last Admin: 01/28/17 21:37 Dose: 20 u Levothyroxine Sodium (Synthroid) 25 mcg PO DAILY@0630 [facility] Last Admin: 01/28/17 06:30 Dose: 25 mcg Metoprolol Tartrate (Lopressor) 25 mg PO BID [facility] Last Admin: 01/28/17 17:42 Dose: 25 mg Nystatin (Nystop Topical Powder) 1 applic TOP BID [facility] Last Admin: 01/28/17 17:42 Dose: 1 applic Pantoprazole Sodium (Protonix Inj) 40 mg IVP DAILY [facility] Last Admin: 01/28/17 09:15 Dose: 40 mg Rosuvastatin Calcium (Crestor) 20 mg PO [facility] Last Admin: 01/28/17 21:37 Dose: 20 mg Saccharomyces Boulardii (Florastor) 250 mg PO BID [facility] Last Admin: 01/28/17 17:41 Dose: 250 mg Spironolactone (Aldactone) 12.5 mg PO BID [facility] Last Admin: 01/28/17 17:41 Dose: 12.5 mg - Labs Labs: 01/28/17 06:28 01/28/17 06:28 - Constitutional Appears: No Acute Distress - Head Exam Head Exam: ATRAUMATIC, NORMAL INSPECTION, NORMOCEPHALIC - Respiratory Exam Respiratory Exam: Clear to Ausculation Bilateral, NORMAL BREATHING PATTERN - Cardiovascular Exam Cardiovascular Exam: Tachycardia, +S1, +S2 - GI/Abdominal Exam GI & Abdominal Exam: Soft, Normal Bowel Sounds. absent: Tenderness - Neurological Exam Neurological Exam: Alert, Awake, CN II-XII Intact, Normal Gait, Oriented x3 Assessment and Plan (1) Respiratory failure Status: Acute (2) Seizure disorder Status: Acute (3) Uncontrolled blood glucose Status: Acute (4) Systolic CHF Status: Acute
[2017-01-29] MEDS: Albuterol 0.042% Inhal Sol (1.25 mg/3 mL) UD INH SCH ×4 (02:50→19:47)
[2017-01-29] MEDS: Aztreonam 2 GM in Sodium Chloride 0.9% 100 ML IVPB SCH ×3 (04:00→19:55)
[2017-01-29] MEDS: (Novolog) Insulin Aspart, Recombinant 100 u/ml 10 ml vial SC SCH ×4 (06:01→18:36)
[2017-01-29] MEDS: Levothyroxine 25 MCG TAB PO SCH (06:03)
[2017-01-29] MEDS: Propofol 10 mg/ml 1,000 MG/100 ML VIAL IV PRN (06:08)
[2017-01-29 06:17] LABS: ARTERIAL BLOOD GAS HCO3 27.6 mmol/L (21-28); ARTERIAL BLOOD GAS HEMOGLOBIN 10.4 g/dL (11.7-17.4); ARTERIAL BLOOD GAS O2 SAT 97.6 % (95-98); ARTERIAL BLOOD GAS PCO2 35 mm/Hg (35-45); ARTERIAL BLOOD GAS PH 7.49 (7.35-7.45); ARTERIAL BLOOD GAS PO2 77 mm/Hg (80-100); ARTERIAL BLOOD GAS TCO2 27.8 mmol/L (22-28)
[2017-01-29 06:54] LABS: BASO % 0.9 % (0.0-2.0); EOS # 0.1 K/uL (0.0-0.7); EOS % 1.3 % (0.0-4.0); LYMPH # 0.9 K/uL (1.0-4.3); LYMPH % 18.4 % (20.0-40.0); MEAN CELL VOLUME 79.4 fL (81.0-99.0); MEAN CORPUSCULAR HEMOGLOBIN 26.9 pg (27.0-31.0); MEAN CORPUSCULAR HGB CONC 33.9 g/dL (33.0-37.0); MEAN PLATELET VOLUME 8.7 fL (7.2-11.7); MONO # 0.4 K/uL (0.0-0.8); MONO % 8.1 % (0.0-10.0); NEUT # 3.6 K/uL (1.8-7.0); NEUT % 71.3 % (50.0-75.0); RBC 3.36 Mil/uL (3.80-5.20); RED CELL DISTRIBUTION WIDTH 14.4 % (11.5-14.5)
[2017-01-29 07:18] LABS: ALB/GLOB RATIO 0.7 (1.0-2.1); ALBUMIN 2.9 g/dL (3.5-5.0); ALT/SGPT 34 U/L (9-52); AST/SGOT 33 U/L (14-36); BLOOD UREA NITROGEN 22 mg/dL (7-17); CALCIUM 7.8 mg/dl (8.6-10.4); GFR AFRICAN-AMERICAN > 60; GFR NON-AFRICAN AMERICAN > 60
[2017-01-29] MEDS ORDERED: Ferric Sodium Gluconat Complex 62.5 mg/5 ml Vial IVPB SCH (10:00)
[2017-01-29] MEDS: Azithromycin 500 MG in Sodium Chloride 0.9% 250 ML IVPB SCH (10:29)
[2017-01-29] MEDS: Enoxaparin 40 mg Syringe SC SCH (10:33)
[2017-01-29] MEDS: Saccharomyces Boulardi 250 mg Cap PO SCH ×2 (10:36→18:35)
[2017-01-29] MEDS: Ferric Sodium Gluconat Complex 125 MG in Sodium Chloride 0.9% 100 ML IVPB SCH (10:36)
--- NOTE | 2017-01-29 10:53 | RAD ---
HISTORY: follow up vented COMPARISON: 01/28/2017 FINDINGS: The endotracheal tube terminates 2 cm proximal to the iwona. The nasogastric tube terminates in the stomach. LUNGS: Macro COPD. There is interval improved aeration in the lungs. No active pulmonary disease. PLEURA: No significant pleural effusion identified, no pneumothorax apparent. CARDIOVASCULAR: Stable OSSEOUS STRUCTURES: There is diffuse bone demineralization. There are multiple old fracture deformities in the right-sided ribs. There is an old deformity in the right humeral head. VISUALIZED UPPER ABDOMEN: Normal. OTHER FINDINGS: None. IMPRESSION: Interval improved aeration in the lungs. Background of COPD.
--- NOTE | 2017-01-29 13:35 | CP.PCM.PN ---
Subjective - Date & Time of Evaluation Date of Evaluation: 01/29/17 Time of Evaluation: 13:34 Objective - Vital Signs/Intake and Output Vital Signs (last 24 hours): Temp Pulse Resp BP Pulse Ox 97.5 F L 77 12 124/65 100 01/29/17 08:00 01/29/17 12:08 01/29/17 12:08 01/29/17 12:08 01/29/17 12:00 Intake and Output: 01/29/17 01/29/17 06:59 18:59 Intake Total 848 578 Output Total 400 0 Balance 448 578 - Medications Medications: Current Medications Acetaminophen (Tylenol 325mg Tab) 650 mg PO Q6 PRN PRN Reason: Pain, moderate (4-7) Last Admin: 01/18/17 15:23 Dose: 650 mg Albuterol Sulfate (Albuterol 0.042% Inhal [place] (1.25mg/3ml) Ud) 1.25 mg INH RQ6 [facility] Last Admin: 01/29/17 08:46 Dose: 1.25 mg Aspirin (Aspirin Chewable) 81 mg PO DAILY [facility] Last Admin: 01/28/17 09:13 Dose: 81 mg Enalapril Maleate (Vasotec) 5 mg PO DAILY [facility] Last Admin: 01/29/17 10:33 Dose: 5 mg Enoxaparin Sodium (Lovenox) 40 mg SC DAILY [facility] Last Admin: 01/29/17 10:33 Dose: 40 mg Propofol (Diprivan) 1,000 mg in 100 mls @ 1.388 mls/hr IV .Q24H PRN; Protocol; 5 MCG/KG/MIN PRN Reason: TITRATE PER MD ORDER Last Admin: 01/29/17 06:08 Dose: 21.61 mcg/kg/min, 6 mls/hr Aztreonam 2 gm/ Sodium (Chloride) 100 mls @ 200 mls/hr IVPB Q8H [facility] Last Admin: 01/29/17 12:14 Dose: 200 mls/hr Vancomycin/Sodium Chloride (Vancomycin 1 Gm/Ns 200 Ml) 1 gm in 200 mls @ 166.7 mls/hr IVPB Q24H [facility] Stop: 02/01/17 14:01 Last Admin: 01/28/17 14:42 Dose: 166.7 mls/hr Levetiracetam 750 mg/ Sodium (Chloride) 107.5 mls @ 420 mls/hr IVPB Q12H [facility] Last Admin: 01/29/17 12:13 Dose: 420 mls/hr Azithromycin 500 mg/ Sodium (Chloride) 250 mls @ 250 mls/hr IVPB DAILY [facility] Last Admin: 01/29/17 10:29 Dose: 250 mls/hr Ferric Sodium Gluconate Complex 125 mg/ Sodium Chloride 110 mls @ 110 mls/hr IVPB DAILY [facility] Stop: 02/06/17 10:01 Last Admin: 01/29/17 10:36 Dose: 110 mls/hr Insulin Aspart (Novolog) 0 unit SC Q6 [facility] PRN Reason: Protocol Last Admin: 01/29/17 12:15 Dose: Not Given Insulin Glargine (Lantus) 20 unit SC HS [facility] Last Admin: 01/28/17 21:37 Dose: 20 u Levothyroxine Sodium (Synthroid) 25 mcg PO DAILY@0630 [facility] Last Admin: 01/29/17 06:03 Dose: 25 mcg Metoprolol Tartrate (Lopressor) 25 mg PO BID [facility] Last Admin: 01/29/17 10:33 Dose: 25 mg Nystatin (Nystop Topical Powder) 1 applic TOP BID [facility] Last Admin: 01/29/17 10:30 Dose: 1 applic Pantoprazole Sodium (Protonix Inj) 40 mg IVP DAILY [facility] Last Admin: 01/29/17 10:35 Dose: 40 mg Rosuvastatin Calcium (Crestor) 20 mg PO HS [facility] Last Admin: 01/28/17 21:37 Dose: 20 mg Saccharomyces Boulardii (Florastor) 250 mg PO BID [facility] Last Admin: 01/29/17 10:36 Dose: 250 mg Spironolactone (Aldactone) 12.5 mg PO BID [facility] Last Admin: 01/29/17 10:31 Dose: 12.5 mg - Labs Labs: 01/29/17 06:48 01/29/17 06:48 Assessment and Plan (1) Pneumonia Status: Acute (2) Respiratory failure Status: Acute
--- NOTE | 2017-01-29 14:57 | CP.CCUPN ---
CCU Subjective - Physician Review Events Since Last Encounter (Free Text): 01/29/17 14:57 Patient is still on ventilator. Tolerating the CPAP. No prevertebral P Tolerating the feeding Patient is opening her eyes Vital signs reviewed No neck vein distention noted Bilateral wheezing CVS regular heart sound, no murmur noted Abdomen soft, nontender. 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 Respiratory failure. Currently unable to clear the secretions. We will try weaning process over time, but high-risk cavity intubation. Patient may need a tracheostomy. CCU Objective - Vital Signs / Intake & Output Vital Signs (Last 4 hours): Vital Signs Pulse Resp BP Pulse Ox 01/29/17 12:08 77 12 124/65 01/29/17 12:00 67 12 100 01/29/17 11:08 71 12 127/54 L Intake and Output (Last 8hrs): Intake & Output 01/28/17 01/29/17 01/29/17 22:59 06:59 14:59 Intake Total 457 598 578 Output Total 150 400 0 Balance 307 198 578 Weight 103 lb 2.821 oz Intake: IV 10 70 Intake, IV Amount 167 248 368 Left Medial Port Internal 167 200 Jugular Left Proximal Port 0 48 368 Internal Jugular Tube Feeding 280 280 210 Output: Urine 150 400 0 Urine, Voided 150 400 0 Emesis 0 Other: # Voids Urine, Voided 0 0 # Bowel Movements 1 0 0 - Physical Exam Head: Positive for: Atraumatic, Normocephalic Pupils: Positive for: PERRL Extroacular Muscles: Positive for: EOMI Mouth: Positive for: Moist Mucous Membranes, Other (intubated) Respiratory/Chest: Positive for: Wheezes, Decreased Breath Sounds, Rhonchi, Other (intubated). Negative for: Respiratory Distress, Accessory Muscle Use Cardiovascular: Positive for: Regular Rate and Rhythm, Murmurs, Normal S1, S2 Abdomen: Negative for: Tenderness, Distention, Peritoneal Signs Upper Extremity: Positive for: Normal Inspection. Negative for: Edema Lower Extremity: Positive for: Normal Inspection. Negative for: Edema Neurological: Positive for: Other (intubated). Negative for: GCS=15 (GCS 11T) Skin: Positive for: Warm Psychiatric: Positive for: Alert, Other (intubated) - Medications Active Medications: Active Medications Generic Name Dose Route Start Last Admin Trade Name Freq PRN Reason Stop Dose Admin Acetaminophen 650 mg 01/17/17 21:49 01/18/17 15:23 Tylenol 325mg Tab PO 650 mg Q6 PRN Administration Pain, moderate (4-7) Albuterol Sulfate 1.25 mg 01/26/17 14:00 01/29/17 13:42 Albuterol 0.042% Inhal Tianna (1.25mg/3ml) Ud INH 1.25 mg RQ6 [facility] Administration Aspirin 81 mg 01/28/17 10:00 01/28/17 09:13 Aspirin Chewable PO 81 mg DAILY [facility] Administration Enalapril Maleate 5 mg 01/26/17 12:45 01/29/17 10:33 Vasotec PO 5 mg DAILY [facility] Administration Enoxaparin Sodium 40 mg 01/18/17 10:00 01/29/17 10:33 Lovenox SC 40 mg DAILY [facility] Administration Propofol 1,000 mg in 100 mls @ 1.388 mls/hr 01/24/17 10:00 01/29/17 06:08 Diprivan IV 21.61 mcg/kg/min .Q24H PRN 6 mls/hr TITRATE PER MD ORDER Administration Protocol 5 MCG/KG/MIN Aztreonam 2 gm/ Sodium 100 mls @ 200 mls/hr 01/27/17 12:00 01/29/17 12:14 Chloride IVPB 200 mls/hr Q8H [facility] Administration Vancomycin/Sodium Chloride 1 gm in 200 mls @ 166.7 mls/hr 01/27/17 14:00 14:42 Vancomycin 1 Gm/Ns 200 Ml IVPB 02/01/17 14:01 166.7 mls/hr Q24H [facility] Administration Levetiracetam 750 mg/ Sodium 107.5 mls @ 420 mls/hr 01/27/17 13:00 01/29/17 12:13 Chloride IVPB 420 mls/hr Q12H [facility] Administration Azithromycin 500 mg/ Sodium 250 mls @ 250 mls/hr 01/28/17 10:00 01/29/17 10: 29 Chloride IVPB 250 mls/hr DAILY [facility] Administration Ferric Sodium Gluconate 110 mls @ 110 mls/hr 12/23/17 11:00 01/29/17 10:36 Complex 125 mg/ Sodium IVPB 02/06/17 10:01 110 mls/hr Chloride DAILY [facility] Administration Insulin Aspart 0 unit 01/25/17 12:00 01/29/17 12:15 Novolog SC Not Given Q6 [facility] Protocol Insulin Glargine 20 unit 01/25/17 22:00 01/28/17 21:37 Lantus SC 20 u HS [facility] Administration Levothyroxine Sodium 25 mcg 01/18/17 06:30 01/29/17 06:03 Synthroid PO 25 mcg DAILY@0630 [facility] Administration Metoprolol Tartrate 25 mg 01/26/17 18:00 01/29/17 10:33 Lopressor PO 25 mg BID [facility] Administration Nystatin 1 applic 01/24/17 18:00 01/29/17 10:30 Nystop Topical Powder TOP 1 applic BID [facility] Administration Pantoprazole Sodium 40 mg 01/19/17 10:00 01/29/17 10:35 Protonix Inj IVP 40 mg DAILY [facility] Administration Rosuvastatin Calcium 20 mg 01/18/17 22:00 01/28/17 21:37 Crestor PO 20 mg HS [facility] Administration Saccharomyces Boulardii 250 mg 01/18/17 18:00 01/29/17 10:36 Florastor PO 250 mg BID [facility] Administration Spironolactone 12.5 mg 01/20/17 18:00 01/29/17 10:31 Aldactone PO 12.5 mg BID [facility] Administration - Patient Studies Lab Studies: Microbiology Studies 01/27/17 11:33 Urine Culture - Final Urine,Clean Catch Vancomycin Resistant E.faecium Lab Studies 01/29/17 01/29/17 01/29/17 Range/Units 12:11 06:48 06:48 WBC 5.0 (4.8-10.8) K/uL RBC 3.36 L (3.80-5.20) Mil/uL Hgb 9.0 L (11.0-16.0) g/dL Hct 26.7 L (34.0-47.0) % MCV 79.4 L (81.0-99.0) fL MCH 26.9 L (27.0-31.0) pg MCHC 33.9 (33.0-37.0) g/dL RDW 14.4 (11.5-14.5) % Plt Count 187 (130-400) K/uL MPV 8.7 (7.2-11.7) fL Neut % (Auto) 71.3 (50.0-75.0) % Lymph % (Auto) 18.4 L (20.0-40.0) % [place] % (Auto) 8.1 (0.0-10.0) % Eos % (Auto) 1.3 (0.0-4.0) % Baso % (Auto) 0.9 (0.0-2.0) % Neut # 3.6 (1.8-7.0) K/uL Lymph # 0.9 L (1.0-4.3) K/uL [place] # 0.4 (0.0-0.8) K/uL Eos # 0.1 (0.0-0.7) K/uL Baso # 0.0 (0.0-0.2) K/uL Puncture Site pCO2 (35-45) mm/Hg pO2 (80-100) mm/Hg HCO3 (21-28) mmol/L ABG pH (7.35-7.45) ABG Total CO2 (22-28) mmol/L ABG O2 Saturation (95-98) % ABG Base Excess (-2.0-3.0) mmol/L ABG Hemoglobin (11.7-17.4) g/dL ABG Carboxyhemoglobin (0.5-1.5) % POC ABG HHb (Measured) (0.0-5.0) % ABG Methemoglobin (0.0-3.0) % Singh Test A-a O2 Difference mm/Hg Respiratory Index Hgb O2 Saturation (95.0-98.0) % Vent Mode Mechanical Rate FiO2 % Tidal Volume PEEP Sodium 134 (132-148) mmol/L Potassium 4.1 (3.6-5.2) mmol/L Chloride 102 (98-107) mmol/L Carbon Dioxide 27 (22-30) mmol/L Anion Gap 9 L (10-20) BUN 22 H (7-17) mg/dL Creatinine 0.4 L (0.7-1.2) mg/dL Est GFR ( Amer) > 60 Est GFR (Non-Af Amer) > 60 POC Glucose (mg/dL) 106 (65-110) mg/dL Random Glucose 246 H (65-105) mg/dL Calcium 7.8 L (8.6-10.4) mg/dl Phosphorus 2.7 (2.5-4.5) mg/dL Magnesium 2.0 (1.6-2.3) mg/dL Total Bilirubin 0.2 (0.2-1.3) mg/dL AST 33 (14-36) U/L ALT 34 (9-52) U/L Alkaline Phosphatase 171 H D (38-126) U/L Total Protein 7.1 (6.3-8.3) g/dL Albumin 2.9 L (3.5-5.0) g/dL Globulin 4.2 H (2.2-3.9) gm/dL Albumin/Globulin Ratio 0.7 L (1.0-2.1) 01/29/17 01/29/17 01/29/17 Range/Units 05:39 05:29 00:13 WBC (4.8-10.8) K/uL RBC (3.80-5.20) Mil/uL Hgb (11.0-16.0) g/dL Hct (34.0-47.0) % MCV (81.0-99.0) fL MCH (27.0-31.0) pg MCHC (33.0-37.0) g/dL RDW (11.5-14.5) % Plt Count (130-400) K/uL MPV (7.2-11.7) fL Neut % (Auto) (50.0-75.0) % Lymph % (Auto) (20.0-40.0) % [place] % (Auto) (0.0-10.0) % Eos % (Auto) (0.0-4.0) % Baso % (Auto) (0.0-2.0) % Neut # (1.8-7.0) K/uL Lymph # (1.0-4.3) K/uL [place] # (0.0-0.8) K/uL Eos # (0.0-0.7) K/uL Baso # (0.0-0.2) K/uL Puncture Site L bra pCO2 35 (35-45) mm/Hg pO2 77 L (80-100) mm/Hg HCO3 27.6 (21-28) mmol/L ABG pH 7.49 H (7.35-7.45) ABG Total CO2 27.8 (22-28) mmol/L ABG O2 Saturation 97.6 (95-98) % ABG Base Excess 3.4 H (-2.0-3.0) mmol/L ABG Hemoglobin 10.4 L (11.7-17.4) g/dL ABG Carboxyhemoglobin 1.5 (0.5-1.5) % POC ABG HHb (Measured) 2.3 (0.0-5.0) % ABG Methemoglobin 1.0 (0.0-3.0) % Singh Test Na A-a O2 Difference 164.0 mm/Hg Respiratory Index 2.1 Hgb O2 Saturation 95.2 (95.0-98.0) % Vent Mode Prvc Mechanical Rate 12 FiO2 40.0 % Tidal Volume 400 PEEP 5 Sodium (132-148) mmol/L Potassium (3.6-5.2) mmol/L Chloride (98-107) mmol/L Carbon Dioxide (22-30) mmol/L Anion Gap (10-20) BUN (7-17) mg/dL Creatinine (0.7-1.2) mg/dL Est GFR ( Amer) Est GFR (Non-Af Amer) POC Glucose (mg/dL) 232 H 257 H (65-110) mg/dL Random Glucose (65-105) mg/dL Calcium (8.6-10.4) mg/dl Phosphorus (2.5-4.5) mg/dL Magnesium (1.6-2.3) mg/dL Total Bilirubin (0.2-1.3) mg/dL AST (14-36) U/L ALT (9-52) U/L Alkaline Phosphatase (38-126) U/L Total Protein (6.3-8.3) g/dL Albumin (3.5-5.0) g/dL Globulin (2.2-3.9) gm/dL Albumin/Globulin Ratio (1.0-2.1) 01/28/17 Range/Units 17:34 WBC (4.8-10.8) K/uL RBC (3.80-5.20) Mil/uL Hgb (11.0-16.0) g/dL Hct (34.0-47.0) % MCV (81.0-99.0) fL MCH (27.0-31.0) pg MCHC (33.0-37.0) g/dL RDW (11.5-14.5) % Plt Count (130-400) K/uL MPV (7.2-11.7) fL Neut % (Auto) (50.0-75.0) % Lymph % (Auto) (20.0-40.0) % [place] % (Auto) (0.0-10.0) % Eos % (Auto) (0.0-4.0) % Baso % (Auto) (0.0-2.0) % Neut # (1.8-7.0) K/uL Lymph # (1.0-4.3) K/uL [place] # (0.0-0.8) K/uL Eos # (0.0-0.7) K/uL Baso # (0.0-0.2) K/uL Puncture Site pCO2 (35-45) mm/Hg pO2 (80-100) mm/Hg HCO3 (21-28) mmol/L ABG pH (7.35-7.45) ABG Total CO2 (22-28) mmol/L ABG O2 Saturation (95-98) % ABG Base Excess (-2.0-3.0) mmol/L ABG Hemoglobin (11.7-17.4) g/dL ABG Carboxyhemoglobin (0.5-1.5) % POC ABG HHb (Measured) (0.0-5.0) % ABG Methemoglobin (0.0-3.0) % Singh Test A-a O2 Difference mm/Hg Respiratory Index Hgb O2 Saturation (95.0-98.0) % Vent Mode Mechanical Rate FiO2 % Tidal Volume PEEP Sodium (132-148) mmol/L Potassium (3.6-5.2) mmol/L Chloride (98-107) mmol/L Carbon Dioxide (22-30) mmol/L Anion Gap (10-20) BUN (7-17) mg/dL Creatinine (0.7-1.2) mg/dL Est GFR ( Amer) Est GFR (Non-Af Amer) POC Glucose (mg/dL) 123 H (65-110) mg/dL Random Glucose (65-105) mg/dL Calcium (8.6-10.4) mg/dl Phosphorus (2.5-4.5) mg/dL Magnesium (1.6-2.3) mg/dL Total Bilirubin (0.2-1.3) mg/dL AST (14-36) U/L ALT (9-52) U/L Alkaline Phosphatase (38-126) U/L Total Protein (6.3-8.3) g/dL Albumin (3.5-5.0) g/dL Globulin (2.2-3.9) gm/dL Albumin/Globulin Ratio (1.0-2.1) Laboratory Results - last 24 hr 01/28/17 01/29/17 01/29/17 17:34 00:13 05:29 WBC RBC Hgb Hct MCV MCH MCHC RDW Plt Count MPV Neut % (Auto) Lymph % (Auto) [place] % (Auto) Eos % (Auto) Baso % (Auto) Neut # Lymph # [place] # Eos # Baso # Puncture Site L bra pCO2 35 pO2 77 L HCO3 27.6 ABG pH 7.49 H ABG Total CO2 27.8 ABG O2 Saturation 97.6 ABG Base Excess 3.4 H ABG Hemoglobin 10.4 L ABG Carboxyhemoglobin 1.5 POC ABG HHb (Measured) 2.3 ABG Methemoglobin 1.0 Singh Test Na A-a O2 Difference 164.0 Respiratory Index 2.1 Hgb O2 Saturation 95.2 Vent Mode Prvc Mechanical Rate 12 FiO2 40.0 Tidal Volume 400 PEEP 5 Sodium Potassium Chloride Carbon Dioxide Anion Gap BUN Creatinine Est GFR ( Amer) Est GFR (Non-Af Amer) POC Glucose (mg/dL) 123 H 257 H Random Glucose Calcium Phosphorus Magnesium Total Bilirubin AST ALT Alkaline Phosphatase Total Protein Albumin Globulin Albumin/Globulin Ratio 01/29/17 01/29/17 01/29/17 05:39 06:48 06:48 WBC 5.0 RBC 3.36 L Hgb 9.0 L Hct 26.7 L MCV 79.4 L MCH 26.9 L MCHC 33.9 RDW 14.4 Plt Count 187 MPV 8.7 Neut % (Auto) 71.3 Lymph % (Auto) 18.4 L [place] % (Auto) 8.1 Eos % (Auto) 1.3 Baso % (Auto) 0.9 Neut # 3.6 Lymph # 0.9 L [place] # 0.4 Eos # 0.1 Baso # 0.0 Puncture Site pCO2 pO2 HCO3 ABG pH ABG Total CO2 ABG O2 Saturation ABG Base Excess ABG Hemoglobin ABG Carboxyhemoglobin POC ABG HHb (Measured) ABG Methemoglobin Singh Test A-a O2 Difference Respiratory Index Hgb O2 Saturation Vent Mode Mechanical Rate FiO2 Tidal Volume PEEP Sodium 134 Potassium 4.1 Chloride 102 Carbon Dioxide 27 Anion Gap 9 L BUN 22 H Creatinine 0.4 L Est GFR ( Amer) > 60 Est GFR (Non-Af Amer) > 60 POC Glucose (mg/dL) 232 H Random Glucose 246 H Calcium 7.8 L Phosphorus 2.7 Magnesium 2.0 Total Bilirubin 0.2 AST 33 ALT 34 Alkaline Phosphatase 171 H D Total Protein 7.1 Albumin 2.9 L Globulin 4.2 H Albumin/Globulin Ratio 0.7 L 01/29/17 12:11 WBC RBC Hgb Hct MCV MCH MCHC RDW Plt Count MPV Neut % (Auto) Lymph % (Auto) [place] % (Auto) Eos % (Auto) Baso % (Auto) Neut # Lymph # [place] # Eos # Baso # Puncture Site pCO2 pO2 HCO3 ABG pH ABG Total CO2 ABG O2 Saturation ABG Base Excess ABG Hemoglobin ABG Carboxyhemoglobin POC ABG HHb (Measured) ABG Methemoglobin Singh Test A-a O2 Difference Respiratory Index Hgb O2 Saturation Vent Mode Mechanical Rate FiO2 Tidal Volume PEEP Sodium Potassium Chloride Carbon Dioxide Anion Gap BUN Creatinine Est GFR ( Amer) Est GFR (Non-Af Amer) POC Glucose (mg/dL) 106 Random Glucose Calcium Phosphorus Magnesium Total Bilirubin AST ALT Alkaline Phosphatase Total Protein Albumin Globulin Albumin/Globulin Ratio Fingerstick Blood Sugar Results: 106
[2017-01-29] MEDS: Vancomycin 1 gm/NS 200 ml 1 GM/200 ML BAG IVPB SCH (15:00)
--- NOTE | 2017-01-29 18:28 | CP.PCM.CON ---
History of Present Illness - History of Present Illness History of Present Illness: INFECTIOUS DISEASE CONSULT; HPI: History from chart review ( pt intubated 01/17/17 ) Patient is an 81 year old that was brought to the hospital 01/17/17 for a complaint of vague chest pain and vomiting. 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 Per PIPE OR STEAM FITTER FURNACE INSTALLER note, she was saturating in the 80s on room air, refusing to wear nasal cannula. After breathing treatments, patient continued to have difficulty breathing. She began to desaturating and appeared diaphoretic. She was intubated on the floor and transferred to ICU. ROS unattainable. pt still intubated. HX OBTAINED FROM STAFF. PT AROUSABLE. PT BEING TREATED FOR RESP.FAILURE AND PNEUMONIA. INFECTIOUS DISEASE CALLED URINE CULTURE +VE VRE. PT HAS A LEFT IJ TLC/AND PEEVICKF. PT ON AZACTAM,ZITHROMAX AND IV VANCOMYCIN. PMH: Anxiety, afib, depression, seizure, hypothyroidism, HTN, hx of multiple falls (with SDH) and hx of CVA PSH: Right Hip repair; Crainiotomy (2 years ago) Social: from prison Allergies: Penicillin, Shellfish Review of Systems - Review of Systems Systems not reviewed;Unavailable: Intubated All systems: reviewed and no additional remarkable complaints except (as above.) Past Patient History - Past Medical History & Family History Past Medical History?: Yes - Past Social History Smoking Status: Never Smoked - CARDIAC Hx Cardiac Disorders: Yes (A.Fib) Hx Hypertension: Yes - PULMONARY Hx Respiratory Disorders: No - NEUROLOGICAL Hx Seizures: Yes - HEENT Hx HEENT Problems: No - RENAL Hx Chronic Kidney Disease: No - ENDOCRINE/METABOLIC Hx Diabetes Mellitus Type 2: Yes Hx Hypothyroidism: Yes - HEMATOLOGICAL/ONCOLOGICAL Hx Blood Disorders: No - INTEGUMENTARY Hx Dermatological Problems: No - MUSCULOSKELETAL/RHEUMATOLOGICAL Hx Falls: Yes Hx Fractures: Yes (Left Tibia) - GASTROINTESTINAL Hx Gastritis: Yes - GENITOURINARY/GYNECOLOGICAL Hx Genitourinary Disorders: No - PSYCHIATRIC Hx Anxiety: Yes Hx Depression: Yes Hx Substance Use: No - SURGICAL HISTORY Hx Surgeries: Yes Other/Comment: Effusion/fx of lt knee. Subdural hematoma Crainiotomy 2 years ago. hip repair - ANESTHESIA Hx Anesthesia: Yes Hx Anesthesia Reactions: No Hx Malignant Hyperthermia: No Meds Allergies/Adverse Reactions: Allergies Allergy/AdvReac Type Severity Reaction Status Date / Time Penicillins Allergy Verified 01/17/17 18:32 shellfish derived Allergy Verified 01/17/17 18:32 tuna Allergy Uncoded 01/17/17 18:32 - Medications Medications: Current Medications Acetaminophen (Tylenol 325mg Tab) 650 mg PO Q6 PRN PRN Reason: Pain, moderate (4-7) Last Admin: 01/18/17 15:23 Dose: 650 mg Albuterol Sulfate (Albuterol 0.042% Inhal Tianna (1.25mg/3ml) Ud) 1.25 mg INH RQ6 [facility] Last Admin: 01/29/17 13:42 Dose: 1.25 mg Aspirin (Aspirin Chewable) 81 mg PO DAILY [facility] Last Admin: 01/28/17 09:13 Dose: 81 mg Enalapril Maleate (Vasotec) 5 mg PO DAILY [facility] Last Admin: 01/29/17 10:33 Dose: 5 mg Enoxaparin Sodium (Lovenox) 40 mg SC DAILY [facility] Last Admin: 01/29/17 10:33 Dose: 40 mg Propofol (Diprivan) 1,000 mg in 100 mls @ 1.388 mls/hr IV .Q24H PRN; Protocol; 5 MCG/KG/MIN PRN Reason: TITRATE PER MD ORDER Last Admin: 01/29/17 06:08 Dose: 21.61 mcg/kg/min, 6 mls/hr Aztreonam 2 gm/ Sodium (Chloride) 100 mls @ 200 mls/hr IVPB Q8H [facility] Last Admin: 01/29/17 12:14 Dose: 200 mls/hr Vancomycin/Sodium Chloride (Vancomycin 1 Gm/Ns 200 Ml) 1 gm in 200 mls @ 166.7 mls/hr IVPB Q24H [facility] Stop: 02/01/17 14:01 Last Admin: 01/28/17 14:42 Dose: 166.7 mls/hr Levetiracetam 750 mg/ Sodium (Chloride) 107.5 mls @ 420 mls/hr IVPB Q12H [facility] Last Admin: 01/29/17 12:13 Dose: 420 mls/hr Azithromycin 500 mg/ Sodium (Chloride) 250 mls @ 250 mls/hr IVPB DAILY [facility] Last Admin: 01/29/17 10:29 Dose: 250 mls/hr Ferric Sodium Gluconate Complex 125 mg/ Sodium Chloride 110 mls @ 110 mls/hr IVPB DAILY [facility] Stop: 02/06/17 10:01 Last Admin: 01/29/17 10:36 Dose: 110 mls/hr Insulin Aspart (Novolog) 0 unit SC Q6 [facility] PRN Reason: Protocol Last Admin: 01/29/17 12:15 Dose: Not Given Insulin Glargine (Lantus) 20 unit SC [facility] Last Admin: 01/28/17 21:37 Dose: 20 u Levothyroxine Sodium (Synthroid) 25 mcg PO DAILY@0630 [facility] Last Admin: 01/29/17 06:03 Dose: 25 mcg Metoprolol Tartrate (Lopressor) 25 mg PO BID [facility] Last Admin: 01/29/17 10:33 Dose: 25 mg Nystatin (Nystop Topical Powder) 1 applic TOP BID [facility] Last Admin: 01/29/17 10:30 Dose: 1 applic Pantoprazole Sodium (Protonix Inj) 40 mg IVP DAILY [facility] Last Admin: 01/29/17 10:35 Dose: 40 mg Rosuvastatin Calcium (Crestor) 20 mg PO [facility] Last Admin: 01/28/17 21:37 Dose: 20 mg Saccharomyces Boulardii (Florastor) 250 mg PO BID [facility] Last Admin: 01/29/17 10:36 Dose: 250 mg Spironolactone (Aldactone) 12.5 mg PO BID [facility] Last Admin: 01/29/17 10:31 Dose: 12.5 mg Physical Exam - Constitutional Appears: No Acute Distress Additional comments: INTUBATED, AROUSABLE, OPENS EYES. - Head Exam Head Exam: NORMAL INSPECTION Additional comments: LEFT IJ CATHETHER IN PLACE. - Eye Exam Eye Exam: PERRL - ENT Exam ENT Exam: Mucous Membranes Moist - Neck Exam Neck exam: Positive for: Normal Inspection - Respiratory Exam Respiratory Exam: Rhonchi (B/L RT >LEFT.) - Cardiovascular Exam Cardiovascular Exam: Irregular Rhythm, +S1, +S2 - GI/Abdominal Exam GI & Abdominal Exam: Normal Bowel Sounds, Soft. absent: Organomegaly - Extremities Exam Extremities exam: Positive for: pedal edema (1+), pedal pulses present. 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.) - Psychiatric Exam Psychiatric exam: Flat Affect - Skin Skin Exam: Warm Results - Vital Signs Recent Vital Signs: Last Vital Signs Temp 97.5 F L 01/29/17 16:00 Pulse 82 01/29/17 18:08 Resp 27 H 01/29/17 18:08 BP 123/50 L 01/29/17 18:08 Pulse Ox 98 01/29/17 17:09 - Labs Result Diagrams: 01/29/17 06:48 01/29/17 06:48 Labs: Laboratory Results - last 24 hr 01/29/17 01/29/17 01/29/17 00:13 05:29 05:39 WBC RBC Hgb Hct MCV MCH MCHC RDW Plt Count MPV Neut % (Auto) Lymph % (Auto) [place] % (Auto) Eos % (Auto) Baso % (Auto) Neut # Lymph # [place] # Eos # Baso # Puncture Site L bra pCO2 35 pO2 77 L HCO3 27.6 ABG pH 7.49 H ABG Total CO2 27.8 ABG O2 Saturation 97.6 ABG Base Excess 3.4 H ABG Hemoglobin 10.4 L ABG Carboxyhemoglobin 1.5 POC ABG HHb (Measured) 2.3 ABG Methemoglobin 1.0 Singh Test Na A-a O2 Difference 164.0 Respiratory Index 2.1 Hgb O2 Saturation 95.2 Vent Mode Prvc Mechanical Rate 12 FiO2 40.0 Tidal Volume 400 PEEP 5 Sodium Potassium Chloride Carbon Dioxide Anion Gap BUN Creatinine Est GFR ( Amer) Est GFR (Non-Af Amer) POC Glucose (mg/dL) 257 H 232 H Random Glucose Calcium Phosphorus Magnesium Total Bilirubin AST ALT Alkaline Phosphatase Total Protein Albumin Globulin Albumin/Globulin Ratio 01/29/17 01/29/17 01/29/17 06:48 06:48 12:11 WBC 5.0 RBC 3.36 L Hgb 9.0 L Hct 26.7 L MCV 79.4 L MCH 26.9 L MCHC 33.9 RDW 14.4 Plt Count 187 MPV 8.7 Neut % (Auto) 71.3 Lymph % (Auto) 18.4 L [place] % (Auto) 8.1 Eos % (Auto) 1.3 Baso % (Auto) 0.9 Neut # 3.6 Lymph # 0.9 L [place] # 0.4 Eos # 0.1 Baso # 0.0 Puncture Site pCO2 pO2 HCO3 ABG pH ABG Total CO2 ABG O2 Saturation ABG Base Excess ABG Hemoglobin ABG Carboxyhemoglobin POC ABG HHb (Measured) ABG Methemoglobin Singh Test A-a O2 Difference Respiratory Index Hgb O2 Saturation Vent Mode Mechanical Rate FiO2 Tidal Volume PEEP Sodium 134 Potassium 4.1 Chloride 102 Carbon Dioxide 27 Anion Gap 9 L BUN 22 H Creatinine 0.4 L Est GFR ( Amer) > 60 Est GFR (Non-Af Amer) > 60 POC Glucose (mg/dL) 106 Random Glucose 246 H Calcium 7.8 L Phosphorus 2.7 Magnesium 2.0 Total Bilirubin 0.2 AST 33 ALT 34 Alkaline Phosphatase 171 H D Total Protein 7.1 Albumin 2.9 L Globulin 4.2 H Albumin/Globulin Ratio 0.7 L - Imaging and Cardiology Chest x-ray Status: Report reviewed by me ([id number] RT. MID LUNG AIRSPACE DISEASE, ATELECTASIS VS PNEUMONIA.) Assessment & Plan (1) Sepsis Assessment and Plan: PANCULTURE ESR CRP ATYPICAL TITRES SPUTUM CULTURE (TRACHAEL ASPIRATION ) D/C IV VANCOMYCIN. ADD IV ZYVOX 600MG IV Q 12HRLY. 01/29/17. CONTINUE IV AZACTAM DECREASE DOSE 1GM IV Q 8HRLY. 01/18/17 CONTINUE IV AZITHROMAX 500MG I QD DAILY .01/24/17 WATCH H/H AND PLT. F/U REPEAT BLOOD CULTURES ORDERED TODAY. Status: Acute (2) Respiratory failure Assessment and Plan: PT ON VENTILATOR. WEANING PER PULMONARY. Status: Acute (3) Pneumonia Assessment and Plan: F/U ATYPICAL TITRES SPUTUM CULTURE. ON ABX Status: Acute (4) Hypertension Status: Chronic Priority: Medium (5) UTI (urinary tract infection) due to Enterococcus Assessment and Plan: PT HAS VRE (ENTEROCOCCUS FAECIUM ) PATIENT STARTED ON LINEZOLID 600 MG iv EVERY 12 HOURLY . Status: Acute
--- NOTE | 2017-01-29 18:45 | PN ---
SUBJECTIVE: The patient is currently on CPAP. No reported hypotension. PHYSICAL EXAMINATION VITAL SIGNS: Blood pressure 124/65, heart rate 70, temperature 97.5, and respirations 16. HEENT: Pale conjunctivae. CHEST: Bilateral rhonchi. HEART: S1 and S2 regular. ABDOMEN: Soft. EXTREMITIES: Significant contracture deformity. LABORATORY DATA: Hemoglobin and hematocrit 9 and 26.7. White count and platelet count are within normal limits. SMA-7: Sodium 134, potassium 4.1, chloride 102, CO2 of 27, glucose 146, BUN 22, creatinine 0.4. Today's chest x-ray report; interval improved aeration in the lungs. Background COPD. ASSESSMENT: 1. Cardiomyopathy. 2. Respiratory failure. 3. Chronic obstructive lung disease. 4. Anemia. 5. History of paroxysmal reentrant supraventricular tachycardia. RECOMMENDATIONS: Continue current albuterol inhaler q.6 hours, continue Aldactone 12.5 mg once a day, aspirin 81 mg once a day, IV Zithromax 500 mg daily, IV Azactam 2 g intravenously q.8 hours and IV vancomycin at 1 g daily. Continue Vasotec at 5 mg once a day, Protonix 40 mg intravenous once a day, Synthroid 25 mcg once a day, Lopressor 25 mg twice a day, subcutaneous Lovenox at 40 mg daily. Continue current ferric sodium gluconate complex infusion. Continue Crestor at 20 mg once a day. Florian Crowell MD
[2017-01-29] MEDS: (Lantus) Insulin Glargine, Recombinant SC SCH (21:44)
[2017-01-29] MEDS: Linezolid 600 mg in D5W 300 ml 600 MG/300 ML BAG IVPB SCH (21:47)
--- NOTE | 2017-01-30 00:04 | CP.PCM.PN ---
Subjective - Date & Time of Evaluation Date of Evaluation: 01/29/17 Time of Evaluation: 19:00 - Subjective Subjective: Pt seen & evaluated, remains on ventilator , febrile, being treated for multiple infections in resp tract and Urinayy tract Objective - Vital Signs/Intake and Output Vital Signs (last 24 hours): Temp Pulse Resp BP Pulse Ox 97.4 F L 72 12 122/47 L 100 01/29/17 20:00 01/29/17 21:00 01/29/17 21:00 01/29/17 20:59 01/29/17 21:00 Intake and Output: 01/29/17 01/30/17 18:59 06:59 Intake Total 988 170 Output Total 0 Balance 988 170 - Medications Medications: Current Medications Acetaminophen (Tylenol 325mg Tab) 650 mg PO Q6 PRN PRN Reason: Pain, moderate (4-7) Last Admin: 01/18/17 15:23 Dose: 650 mg Albuterol Sulfate (Albuterol 0.042% Inhal Tianna (1.25mg/3ml) Ud) 1.25 mg INH RQ6 [facility] Last Admin: 01/29/17 19:47 Dose: 1.25 mg Aspirin (Aspirin Chewable) 81 mg PO DAILY [facility] Last Admin: 01/29/17 10:30 Dose: 81 mg Enalapril Maleate (Vasotec) 5 mg PO DAILY [facility] Last Admin: 01/29/17 10:33 Dose: 5 mg Enoxaparin Sodium (Lovenox) 40 mg SC DAILY [facility] Last Admin: 01/29/17 10:33 Dose: 40 mg Propofol (Diprivan) 1,000 mg in 100 mls @ 1.388 mls/hr IV .Q24H PRN; Protocol; 5 MCG/KG/MIN PRN Reason: TITRATE PER MD ORDER Last Admin: 01/29/17 06:08 Dose: 21.61 mcg/kg/min, 6 mls/hr Aztreonam 2 gm/ Sodium (Chloride) 100 mls @ 200 mls/hr IVPB Q8H [facility] Last Admin: 01/29/17 19:55 Dose: 200 mls/hr Levetiracetam 750 mg/ Sodium (Chloride) 107.5 mls @ 420 mls/hr IVPB Q12H [facility] Last Admin: 01/29/17 12:13 Dose: 420 mls/hr Azithromycin 500 mg/ Sodium (Chloride) 250 mls @ 250 mls/hr IVPB DAILY [facility] Last Admin: 01/29/17 10:29 Dose: 250 mls/hr Ferric Sodium Gluconate Complex 125 mg/ Sodium Chloride 110 mls @ 110 mls/hr IVPB DAILY [facility] Stop: 02/06/17 10:01 Last Admin: 01/29/17 10:36 Dose: 110 mls/hr Linezolid (Zyvox 600mg/300ml D5w) 600 mg in 300 mls @ 200 mls/hr IVPB Q12 [facility] Last Admin: 01/29/17 21:47 Dose: 200 mls/hr Insulin Aspart (Novolog) 0 unit SC Q6 [facility] PRN Reason: Protocol Last Admin: 01/29/17 18:36 Dose: Not Given Insulin Glargine (Lantus) 20 unit SC [facility] Last Admin: 01/29/17 21:44 Dose: 20 u Levothyroxine Sodium (Synthroid) 25 mcg PO DAILY@0630 [facility] Last Admin: 01/29/17 06:03 Dose: 25 mcg Metoprolol Tartrate (Lopressor) 25 mg PO BID [facility] Last Admin: 01/29/17 18:35 Dose: 25 mg Nystatin (Nystop Topical Powder) 1 applic TOP BID [facility] Last Admin: 01/29/17 18:36 Dose: 1 applic Pantoprazole Sodium (Protonix Inj) 40 mg IVP DAILY [facility] Last Admin: 01/29/17 10:35 Dose: 40 mg Rosuvastatin Calcium (Crestor) 20 mg PO [facility] Last Admin: 01/29/17 21:42 Dose: 20 mg Saccharomyces Boulardii (Florastor) 250 mg PO BID [facility] Last Admin: 01/29/17 18:35 Dose: 250 mg Spironolactone (Aldactone) 12.5 mg PO BID [facility] Last Admin: 01/29/17 18:35 Dose: 12.5 mg - Labs Labs: 01/29/17 06:48 01/29/17 06:48 - Constitutional Appears: Confused, Cachectic, Chronically Ill - Head Exam Head Exam: ATRAUMATIC, NORMAL INSPECTION, NORMOCEPHALIC - Eye Exam Eye Exam: EOMI, Normal appearance, PERRL Pupil Exam: NORMAL ACCOMODATION, PERRL - Respiratory Exam Respiratory Exam: Decreased Breath Sounds, Rales, Rhonchi - Cardiovascular Exam Cardiovascular Exam: Tachycardia, +S1, +S2. absent: Murmur - GI/Abdominal Exam GI & Abdominal Exam: Soft, Normal Bowel Sounds. absent: Tenderness Assessment and Plan (1) Respiratory failure Status: Acute (2) Seizure disorder Status: Acute (3) Uncontrolled blood glucose Status: Acute (4) Systolic CHF Status: Acute
[2017-01-30] MEDS: Albuterol 0.042% Inhal Sol (1.25 mg/3 mL) UD INH SCH ×4 (02:58→19:49)
[2017-01-30] MEDS: Aztreonam 2 GM in Sodium Chloride 0.9% 100 ML IVPB SCH ×3 (04:11→19:42)
[2017-01-30] MEDS: (Novolog) Insulin Aspart, Recombinant 100 u/ml 10 ml vial SC SCH ×4 (05:42→17:56)
[2017-01-30] MEDS: Levothyroxine 25 MCG TAB PO SCH (05:42)
[2017-01-30 06:43] LABS: ARTERIAL BLOOD GAS HCO3 26.5 mmol/L (21-28); ARTERIAL BLOOD GAS HEMOGLOBIN 8.4 g/dL (11.7-17.4); ARTERIAL BLOOD GAS O2 SAT 99.1 % (95-98); ARTERIAL BLOOD GAS PCO2 40 mm/Hg (35-45); ARTERIAL BLOOD GAS PH 7.43 (7.35-7.45); ARTERIAL BLOOD GAS PO2 131 mm/Hg (80-100); ARTERIAL BLOOD GAS TCO2 27.7 mmol/L (22-28)
[2017-01-30 07:22] LABS: ALBUMIN 2.8 g/dL (3.5-5.0); BILIRUBIN,DIRECT 0.3 mg/dL (0.0-0.4)
[2017-01-30 07:23] LABS: ALB/GLOB RATIO 0.8 (1.0-2.1)
[2017-01-30] MEDS: Azithromycin 500 MG in Sodium Chloride 0.9% 250 ML IVPB SCH (10:28)
[2017-01-30] MEDS: Linezolid 600 mg in D5W 300 ml 600 MG/300 ML BAG IVPB SCH ×2 (10:30→21:35)
[2017-01-30] MEDS: Enoxaparin 40 mg Syringe SC SCH (10:33)
[2017-01-30] MEDS: Saccharomyces Boulardi 250 mg Cap PO SCH ×2 (10:34→17:48)
[2017-01-30] MEDS: Ferric Sodium Gluconat Complex 125 MG in Sodium Chloride 0.9% 100 ML IVPB SCH (12:41)
--- NOTE | 2017-01-30 14:46 | CP.PCM.PN ---
Subjective - Date & Time of Evaluation Date of Evaluation: 01/30/17 Time of Evaluation: 14:45 - Subjective Subjective: Pt seen and examined On CPAP Objective - Vital Signs/Intake and Output Vital Signs (last 24 hours): Temp Pulse Resp BP Pulse Ox 98 F 78 17 109/60 99 01/30/17 12:00 01/30/17 12:00 01/30/17 12:00 01/30/17 11:59 01/30/17 12:00 Intake and Output: 01/30/17 01/30/17 06:59 18:59 Intake Total 985 1220 Output Total 200 200 Balance 785 1020 - Medications Medications: Current Medications Acetaminophen (Tylenol 325mg Tab) 650 mg PO Q6 PRN PRN Reason: Pain, moderate (4-7) Last Admin: 01/18/17 15:23 Dose: 650 mg Albuterol Sulfate (Albuterol 0.042% Inhal Tianna (1.25mg/3ml) Ud) 1.25 mg INH RQ6 [facility] Last Admin: 01/30/17 13:10 Dose: 1.25 mg Aspirin (Aspirin Chewable) 81 mg PO DAILY [facility] Last Admin: 01/30/17 10:34 Dose: 81 mg Enalapril Maleate (Vasotec) 5 mg PO DAILY [facility] Last Admin: 01/30/17 10:34 Dose: 5 mg Enoxaparin Sodium (Lovenox) 40 mg SC DAILY [facility] Last Admin: 01/30/17 10:33 Dose: 40 mg Propofol (Diprivan) 1,000 mg in 100 mls @ 1.388 mls/hr IV .Q24H PRN; Protocol; 5 MCG/KG/MIN PRN Reason: TITRATE PER MD ORDER Last Admin: 01/29/17 06:08 Dose: 21.61 mcg/kg/min, 6 mls/hr Aztreonam 2 gm/ Sodium (Chloride) 100 mls @ 200 mls/hr IVPB Q8H [facility] Last Admin: 01/30/17 12:41 Dose: 200 mls/hr Levetiracetam 750 mg/ Sodium (Chloride) 107.5 mls @ 420 mls/hr IVPB Q12H [facility] Last Admin: 01/30/17 12:41 Dose: 420 mls/hr Azithromycin 500 mg/ Sodium (Chloride) 250 mls @ 250 mls/hr IVPB DAILY [facility] Last Admin: 01/30/17 10:28 Dose: 250 mls/hr Ferric Sodium Gluconate Complex 125 mg/ Sodium Chloride 110 mls @ 110 mls/hr IVPB DAILY [facility] Stop: 02/06/17 10:01 Last Admin: 01/30/17 12:41 Dose: 110 mls/hr Linezolid (Zyvox 600mg/300ml D5w) 600 mg in 300 mls @ 200 mls/hr IVPB Q12 [facility] Last Admin: 01/30/17 10:30 Dose: 200 mls/hr Insulin Aspart (Novolog) 0 unit SC Q6 [facility] PRN Reason: Protocol Last Admin: 01/30/17 12:43 Dose: Not Given Insulin Glargine (Lantus) [address] [facility] Last Admin: 01/29/17 21:44 Dose: 20 u Levothyroxine Sodium (Synthroid) 25 mcg PO DAILY@0630 [facility] Last Admin: 01/30/17 05:42 Dose: 25 mcg Metoprolol Tartrate (Lopressor) 25 mg PO BID [facility] Last Admin: 01/30/17 10:34 Dose: 25 mg Nystatin (Nystop Topical Powder) 1 applic TOP BID [facility] Last Admin: 01/30/17 10:30 Dose: 1 applic Pantoprazole Sodium (Protonix Inj) 40 mg IVP DAILY [facility] Last Admin: 01/30/17 10:35 Dose: 40 mg Rosuvastatin Calcium (Crestor) [address] [facility] Last Admin: 01/29/17 21:42 Dose: 20 mg Saccharomyces Boulardii (Florastor) 250 mg PO BID [facility] Last Admin: 01/30/17 10:34 Dose: 250 mg Spironolactone (Aldactone) 12.5 mg PO BID [facility] Last Admin: 01/30/17 10:34 Dose: 12.5 mg - Labs Labs: 01/29/17 06:48 01/29/17 06:48 - Head Exam Head Exam: NORMAL INSPECTION - Eye Exam Eye Exam: Normal appearance - ENT Exam ENT Exam: Mucous Membranes Moist - Respiratory Exam Respiratory Exam: Decreased Breath Sounds - Cardiovascular Exam Cardiovascular Exam: REGULAR RHYTHM, +S1, +S2 - GI/Abdominal Exam GI & Abdominal Exam: Soft, Normal Bowel Sounds - Extremities Exam Extremities Exam: Normal Inspection Assessment and Plan (1) Pneumonia Status: Acute (2) Respiratory failure Status: Acute - Assessment and Plan (Free Text) Plan: Continue CPAP Tolerating feeding Continue antibiotics Lasix Patient may benefit from trach DVT/GI prophylaxis
--- NOTE | 2017-01-30 16:08 | CP.CCUPN ---
CCU Subjective - Physician Review Events Since Last Encounter (Free Text): 01/30/17 16:07 Patient is still on ventilator. patient is currently on CPAP, tolerating. Mild respiratory distress last night. patient is currently tolerating the feeding. Patient is opening her eyes Vital signs reviewed No neck vein distention noted Bilateral wheezing CVS regular heart sound, no murmur noted Abdomen soft, nontender. 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 Respiratory failure. Currently unable to clear the secretions. We will try weaning processas tolerated, but high-risk RE- intubation. Patient may need a tracheostomy. CCU Objective - Vital Signs / Intake & Output Vital Signs (Last 4 hours): Vital Signs Pulse Resp BP Pulse Ox 01/30/17 15:00 88 10 L 144/63 100 01/30/17 14:00 80 15 133/62 100 01/30/17 13:00 75 16 100 01/30/17 12:59 78 15 123/62 Intake and Output (Last 8hrs): Intake & Output 01/30/17 01/30/17 01/30/17 06:59 14:59 22:59 Intake Total 630 1220 35 Output Total 200 200 Balance 430 1020 35 Weight 106 lb Intake: Intake, IV Amount 350 880 Left Medial Port Internal 880 Jugular Left Proximal Port 350 Internal Jugular Tube Feeding 280 280 35 Other 60 Output: Urine 200 200 Urine, Voided 200 200 Other: # Bowel Movements 1 - Physical Exam Head: Positive for: Atraumatic, Normocephalic Pupils: Positive for: PERRL Extroacular Muscles: Positive for: EOMI Mouth: Positive for: Moist Mucous Membranes, Other (intubated) Respiratory/Chest: Positive for: Wheezes, Decreased Breath Sounds, Rhonchi, Other (intubated). Negative for: Respiratory Distress, Accessory Muscle Use Cardiovascular: Positive for: Regular Rate and Rhythm, Murmurs, Normal S1, S2 Abdomen: Negative for: Tenderness, Distention, Peritoneal Signs Upper Extremity: Positive for: Normal Inspection. Negative for: Edema Lower Extremity: Positive for: Normal Inspection. Negative for: Edema Neurological: Positive for: Other (intubated). Negative for: GCS=15 (GCS 11T) Skin: Positive for: Warm Psychiatric: Positive for: Alert, Other (intubated) - Medications Active Medications: Active Medications Generic Name Dose Route Start Last Admin Trade Name Freq PRN Reason Stop Dose Admin Acetaminophen 650 mg 01/17/17 21:49 01/18/17 15:23 Tylenol 325mg Tab PO 650 mg Q6 PRN Administration Pain, moderate (4-7) Albuterol Sulfate 1.25 mg 01/26/17 14:00 01/30/17 13:10 Albuterol 0.042% Inhal Tianna (1.25mg/3ml) Ud INH 1.25 mg RQ6 [facility] Administration Aspirin 81 mg 01/28/17 10:00 01/30/17 10:34 Aspirin Chewable PO 81 mg DAILY [facility] Administration Enalapril Maleate 5 mg 01/26/17 12:45 01/30/17 10:34 Vasotec PO 5 mg DAILY [facility] Administration Enoxaparin Sodium 40 mg 01/18/17 10:00 01/30/17 10:33 Lovenox SC 40 mg DAILY [facility] Administration Propofol 1,000 mg in 100 mls @ 1.388 mls/hr 01/24/17 10:00 01/29/17 06:08 Diprivan IV 21.61 mcg/kg/min .Q24H PRN 6 mls/hr TITRATE PER MD ORDER Administration Protocol 5 MCG/KG/MIN Aztreonam 2 gm/ Sodium 100 mls @ 200 mls/hr 01/27/17 12:00 01/30/17 12:41 Chloride IVPB 200 mls/hr Q8H [facility] Administration Levetiracetam 750 mg/ Sodium 107.5 mls @ 420 mls/hr 01/27/17 13:00 01/30/17 12:41 Chloride IVPB 420 mls/hr Q12H [facility] Administration Azithromycin 500 mg/ Sodium 250 mls @ 250 mls/hr 01/28/17 10:00 01/30/17 10: 28 Chloride IVPB 250 mls/hr DAILY [facility] Administration Ferric Sodium Gluconate 110 mls @ 110 mls/hr 01/29/17 11:00 01/30/17 12:41 Complex 125 mg/ Sodium IVPB 02/06/17 10:01 110 mls/hr Chloride DAILY [facility] Administration Linezolid 600 mg in 300 mls @ 200 mls/hr 01/29/17 22:00 01/30/17 10:30 Zyvox 600mg/300ml D5w IVPB 200 mls/hr Q12 [facility] Administration Insulin Aspart 0 unit 01/25/17 12:00 01/30/17 12:43 Novolog SC Not Given Q6 [facility] Protocol Insulin Glargine 20 unit 01/25/17 22:00 01/29/17 21:44 Lantus SC 20 u HS [facility] Administration Levothyroxine Sodium 25 mcg 01/18/17 06:30 01/30/17 05:42 Synthroid PO 25 mcg DAILY@0630 [facility] Administration Metoprolol Tartrate 25 mg 01/26/17 18:00 01/30/17 10:34 Lopressor PO 25 mg BID [facility] Administration Nystatin 1 applic 01/24/17 18:00 01/30/17 10:30 Nystop Topical Powder TOP 1 applic BID [facility] Administration Pantoprazole Sodium 40 mg 01/19/17 10:00 01/30/17 10:35 Protonix Inj IVP 40 mg DAILY [facility] Administration Rosuvastatin Calcium 20 mg 01/18/17 22:00 01/29/17 21:42 Crestor PO 20 mg HS [facility] Administration Saccharomyces Boulardii 250 mg 01/18/17 18:00 01/30/17 10:34 Florastor PO 250 mg BID [facility] Administration Spironolactone 12.5 mg 01/20/17 18:00 01/30/17 10:34 Aldactone PO 12.5 mg BID [facility] Administration - Patient Studies Lab Studies: Microbiology Studies 01/29/17 Unknown Gram Stain - Final Trachasp 01/27/17 11:31 Gram Stain - Final Sputum Sputum Culture - Final NORMAL ORAL DANIEL 01/27/17 11:33 Urine Culture - Final Urine,Clean Catch Vancomycin Resistant E.faecium Lab Studies 01/30/17 01/30/17 01/30/17 Range/Units 11:34 06:51 06:51 ESR (0-20) mm/hr Puncture Site pCO2 (35-45) mm/Hg pO2 (80-100) mm/Hg HCO3 (21-28) mmol/L ABG pH (7.35-7.45) ABG Total CO2 (22-28) mmol/L ABG O2 Saturation (95-98) % ABG Base Excess (-2.0-3.0) mmol/L ABG Hemoglobin (11.7-17.4) g/dL ABG Carboxyhemoglobin (0.5-1.5) % POC ABG HHb (Measured) (0.0-5.0) % ABG Methemoglobin (0.0-3.0) % Singh Test A-a O2 Difference mm/Hg Respiratory Index Hgb O2 Saturation (95.0-98.0) % Vent Mode Mechanical Rate FiO2 % Tidal Volume PEEP POC Glucose (mg/dL) 110 (65-110) mg/dL Total Bilirubin 0.3 (0.2-1.3) mg/dL Direct Bilirubin 0.3 (0.0-0.4) mg/dL AST 33 (14-36) U/L ALT 30 (9-52) U/L Alkaline Phosphatase 156 H (38-126) U/L C-React Prot High Sens > 15.00 H (1.00-3.00) mg/L Total Protein 6.4 (6.3-8.3) g/dL Albumin 2.8 L (3.5-5.0) g/dL Globulin 3.6 (2.2-3.9) gm/dL Albumin/Globulin Ratio 0.8 L (1.0-2.1) 01/30/17 01/30/17 01/30/17 Range/Units 06:50 05:28 05:21 ESR 90 H (0-20) mm/hr Puncture Site L bra pCO2 40 (35-45) mm/Hg pO2 131 H (80-100) mm/Hg HCO3 26.5 (21-28) mmol/L ABG pH 7.43 (7.35-7.45) ABG Total CO2 27.7 (22-28) mmol/L ABG O2 Saturation 99.1 H (95-98) % ABG Base Excess 2.0 (-2.0-3.0) mmol/L ABG Hemoglobin 8.4 L (11.7-17.4) g/dL ABG Carboxyhemoglobin 1.6 H (0.5-1.5) % POC ABG HHb (Measured) 0.9 (0.0-5.0) % ABG Methemoglobin 1.2 (0.0-3.0) % Singh Test Na A-a O2 Difference 104.0 mm/Hg Respiratory Index 0.8 Hgb O2 Saturation 96.3 (95.0-98.0) % Vent Mode Prvc Mechanical Rate 12 FiO2 40.0 % Tidal Volume 400 PEEP 5 POC Glucose (mg/dL) 214 H (65-110) mg/dL Total Bilirubin (0.2-1.3) mg/dL Direct Bilirubin (0.0-0.4) mg/dL AST (14-36) U/L ALT (9-52) U/L Alkaline Phosphatase (38-126) U/L C-React Prot High Sens (1.00-3.00) mg/L Total Protein (6.3-8.3) g/dL Albumin (3.5-5.0) g/dL Globulin (2.2-3.9) gm/dL Albumin/Globulin Ratio (1.0-2.1) 01/29/17 01/29/17 Range/Units 23:38 17:46 ESR (0-20) mm/hr Puncture Site pCO2 (35-45) mm/Hg pO2 (80-100) mm/Hg HCO3 (21-28) mmol/L ABG pH (7.35-7.45) ABG Total CO2 (22-28) mmol/L ABG O2 Saturation (95-98) % ABG Base Excess (-2.0-3.0) mmol/L ABG Hemoglobin (11.7-17.4) g/dL ABG Carboxyhemoglobin (0.5-1.5) % POC ABG HHb (Measured) (0.0-5.0) % ABG Methemoglobin (0.0-3.0) % Singh Test A-a O2 Difference mm/Hg Respiratory Index Hgb O2 Saturation (95.0-98.0) % Vent Mode Mechanical Rate FiO2 % Tidal Volume PEEP POC Glucose (mg/dL) 177 H 134 H (65-110) mg/dL Total Bilirubin (0.2-1.3) mg/dL Direct Bilirubin (0.0-0.4) mg/dL AST (14-36) U/L ALT (9-52) U/L Alkaline Phosphatase (38-126) U/L C-React Prot High Sens (1.00-3.00) mg/L Total Protein (6.3-8.3) g/dL Albumin (3.5-5.0) g/dL Globulin (2.2-3.9) gm/dL Albumin/Globulin Ratio (1.0-2.1) Laboratory Results - last 24 hr 01/29/17 01/29/17 01/30/17 17:46 23:38 05:21 ESR Puncture Site L bra pCO2 40 pO2 131 H HCO3 26.5 ABG pH 7.43 ABG Total CO2 27.7 ABG O2 Saturation 99.1 H ABG Base Excess 2.0 ABG Hemoglobin 8.4 L ABG Carboxyhemoglobin 1.6 H POC ABG HHb (Measured) 0.9 ABG Methemoglobin 1.2 Singh Test Na A-a O2 Difference 104.0 Respiratory Index 0.8 Hgb O2 Saturation 96.3 Vent Mode Prvc Mechanical Rate 12 FiO2 40.0 Tidal Volume 400 PEEP 5 POC Glucose (mg/dL) 134 H 177 H Total Bilirubin Direct Bilirubin AST ALT Alkaline Phosphatase C-React Prot High Sens Total Protein Albumin Globulin Albumin/Globulin Ratio 01/30/17 01/30/17 01/30/17 05:28 06:50 06:51 ESR 90 H Puncture Site pCO2 pO2 HCO3 ABG pH ABG Total CO2 ABG O2 Saturation ABG Base Excess ABG Hemoglobin ABG Carboxyhemoglobin POC ABG HHb (Measured) ABG Methemoglobin Singh Test A-a O2 Difference Respiratory Index Hgb O2 Saturation Vent Mode Mechanical Rate FiO2 Tidal Volume PEEP POC Glucose (mg/dL) 214 H Total Bilirubin Direct Bilirubin AST ALT Alkaline Phosphatase C-React Prot High Sens > 15.00 H Total Protein Albumin Globulin Albumin/Globulin Ratio 01/30/17 01/30/17 06:51 11:34 ESR Puncture Site pCO2 pO2 HCO3 ABG pH ABG Total CO2 ABG O2 Saturation ABG Base Excess ABG Hemoglobin ABG Carboxyhemoglobin POC ABG HHb (Measured) ABG Methemoglobin Singh Test A-a O2 Difference Respiratory Index Hgb O2 Saturation Vent Mode Mechanical Rate FiO2 Tidal Volume PEEP POC Glucose (mg/dL) 110 Total Bilirubin 0.3 Direct Bilirubin 0.3 AST 33 ALT 30 Alkaline Phosphatase 156 H C-React Prot High Sens Total Protein 6.4 Albumin 2.8 L Globulin 3.6 Albumin/Globulin Ratio 0.8 L Fingerstick Blood Sugar Results: 110
[2017-01-30] MEDS: (Lantus) Insulin Glargine, Recombinant SC SCH (21:34)
--- NOTE | 2017-01-30 22:30 | CP.PCM.PN ---
Subjective - Date & Time of Evaluation Date of Evaluation: 01/30/17 Time of Evaluation: 20:00 - Subjective Subjective: Pt seen and examined, remaisn on ventilator, is having multiple infections in resp tract and urinary tract, febrile, on antibiotics Objective - Vital Signs/Intake and Output Vital Signs (last 24 hours): Temp Pulse Resp BP Pulse Ox 99 F 79 18 123/54 L 100 01/30/17 20:00 01/30/17 21:00 01/30/17 21:00 01/30/17 20:59 01/30/17 21:00 Intake and Output: 01/30/17 01/31/17 18:59 06:59 Intake Total 1420 205 Output Total 200 Balance 1220 205 - Medications Medications: Current Medications Acetaminophen (Tylenol 325mg Tab) 650 mg PO Q6 PRN PRN Reason: Pain, moderate (4-7) Last Admin: 01/18/17 15:23 Dose: 650 mg Albuterol Sulfate (Albuterol 0.042% Inhal Tianna (1.25mg/3ml) Ud) 1.25 mg INH RQ6 [facility] Last Admin: 01/30/17 19:49 Dose: 1.25 mg Aspirin (Aspirin Chewable) 81 mg PO DAILY [facility] Last Admin: 01/30/17 10:34 Dose: 81 mg Enalapril Maleate (Vasotec) 5 mg PO DAILY [facility] Last Admin: 01/30/17 10:34 Dose: 5 mg Enoxaparin Sodium (Lovenox) 40 mg SC DAILY [facility] Last Admin: 01/30/17 10:33 Dose: 40 mg Propofol (Diprivan) 1,000 mg in 100 mls @ 1.388 mls/hr IV .Q24H PRN; Protocol; 5 MCG/KG/MIN PRN Reason: TITRATE PER MD ORDER Last Admin: 01/29/17 06:08 Dose: 21.61 mcg/kg/min, 6 mls/hr Aztreonam 2 gm/ Sodium (Chloride) 100 mls @ 200 mls/hr IVPB Q8H [facility] Last Admin: 01/30/17 19:42 Dose: 200 mls/hr Levetiracetam 750 mg/ Sodium (Chloride) 107.5 mls @ 420 mls/hr IVPB Q12H [facility] Last Admin: 01/30/17 12:41 Dose: 420 mls/hr Azithromycin 500 mg/ Sodium (Chloride) 250 mls @ 250 mls/hr IVPB DAILY [facility] Last Admin: 01/30/17 10:28 Dose: 250 mls/hr Ferric Sodium Gluconate Complex 125 mg/ Sodium Chloride 110 mls @ 110 mls/hr IVPB DAILY [facility] Stop: 02/06/17 10:01 Last Admin: 01/30/17 12:41 Dose: 110 mls/hr Linezolid (Zyvox 600mg/300ml D5w) 600 mg in 300 mls @ 200 mls/hr IVPB Q12 [facility] Last Admin: 01/30/17 21:35 Dose: 200 mls/hr Insulin Aspart (Novolog) 0 unit SC Q6 [facility] PRN Reason: Protocol Last Admin: 01/30/17 17:56 Dose: 2 unit Insulin Glargine (Lantus) 20 unit SC [facility] Last Admin: 01/30/17 21:34 Dose: 20 u Levothyroxine Sodium (Synthroid) 25 mcg PO DAILY@0630 [facility] Last Admin: 01/30/17 05:42 Dose: 25 mcg Metoprolol Tartrate (Lopressor) 25 mg PO BID [facility] Last Admin: 01/30/17 17:48 Dose: 25 mg Nystatin (Nystop Topical Powder) 1 applic TOP BID [facility] Last Admin: 01/30/17 17:30 Dose: 1 applic Pantoprazole Sodium (Protonix Inj) 40 mg IVP DAILY [facility] Last Admin: 01/30/17 10:35 Dose: 40 mg Rosuvastatin Calcium (Crestor) 20 mg PO [facility] Last Admin: 01/30/17 21:34 Dose: 20 mg Saccharomyces Boulardii (Florastor) 250 mg PO BID [facility] Last Admin: 01/30/17 17:48 Dose: 250 mg Spironolactone (Aldactone) 12.5 mg PO BID [facility] Last Admin: 01/30/17 17:48 Dose: 12.5 mg - Labs Labs: 01/29/17 06:48 01/29/17 06:48 - Constitutional Appears: Confused, Chronically Ill - Head Exam Head Exam: ATRAUMATIC, NORMAL INSPECTION, NORMOCEPHALIC - Eye Exam Eye Exam: EOMI, Normal appearance, PERRL Pupil Exam: NORMAL ACCOMODATION, PERRL - Respiratory Exam Respiratory Exam: Accessory Muscle Use, Rales, Rhonchi - Cardiovascular Exam Cardiovascular Exam: REGULAR RHYTHM, +S1, +S2. absent: Murmur - GI/Abdominal Exam GI & Abdominal Exam: Soft, Normal Bowel Sounds. absent: Tenderness - Neurological Exam Neurological Exam: Awake, CN II-XII Intact - Psychiatric Exam Psychiatric exam: Flat Affect Assessment and Plan (1) Respiratory failure Status: Acute (2) Seizure disorder Status: Acute (3) Uncontrolled blood glucose Status: Acute (4) Systolic CHF Status: Acute
[2017-01-31] MEDS: (Novolog) Insulin Aspart, Recombinant 100 u/ml 10 ml vial SC SCH ×4 (00:04→18:00)
[2017-01-31] MEDS: Albuterol 0.042% Inhal Sol (1.25 mg/3 mL) UD INH SCH ×3 (02:42→13:23)
[2017-01-31] MEDS: Aztreonam 2 GM in Sodium Chloride 0.9% 100 ML IVPB SCH (03:53)
[2017-01-31] MEDS: Levothyroxine 25 MCG TAB PO SCH (05:59)
[2017-01-31 06:37] LABS: ARTERIAL BLOOD GAS HCO3 27.7 mmol/L (21-28); ARTERIAL BLOOD GAS HEMOGLOBIN 8.5 g/dL (11.7-17.4); ARTERIAL BLOOD GAS PCO2 39 mm/Hg (35-45); ARTERIAL BLOOD GAS PH 7.46 (7.35-7.45); ARTERIAL BLOOD GAS PO2 132 mm/Hg (80-100); ARTERIAL BLOOD GAS TCO2 28.9 mmol/L (22-28)
--- NOTE | 2017-01-31 09:42 | RAD ---
HISTORY: vented COMPARISON: 01/29/2017. FINDINGS: The endotracheal tube terminates 1 cm proximal to the iwona. The nasogastric tube terminates in the stomach. The left IJV line terminates in the SVC. LUNGS: There is severe pulmonary venous congestion. There is atelectasis in the right upper lobe. No focal consolidation. Macro COPD PLEURA: No significant pleural effusion identified, no pneumothorax apparent. CARDIOVASCULAR: Normal. OSSEOUS STRUCTURES: No significant abnormalities. VISUALIZED UPPER ABDOMEN: Normal. OTHER FINDINGS: None. IMPRESSION: 1. Stable position of support line and tubes. 2. Interval development of right upper lobe atelectasis. 3. No other significant interval change.
[2017-01-31] MEDS: Saccharomyces Boulardi 250 mg Cap PO SCH ×2 (09:43→17:18)
[2017-01-31] MEDS: Azithromycin 500 MG in Sodium Chloride 0.9% 250 ML IVPB SCH (09:43)
[2017-01-31] MEDS: Enoxaparin 40 mg Syringe SC SCH (09:44)
[2017-01-31] MEDS: Aztreonam 1 GM in Sodium Chloride 0.9% 100 ML IVPB SCH ×2 (09:49→17:17)
[2017-01-31] MEDS: Ferric Sodium Gluconat Complex 125 MG in Sodium Chloride 0.9% 100 ML IVPB SCH (11:24)
[2017-01-31] MEDS: Linezolid 600 mg in D5W 300 ml 600 MG/300 ML BAG IVPB SCH ×2 (11:25→21:48)
--- NOTE | 2017-01-31 17:25 | CP.CCUPN ---
CCU Subjective - Physician Review Events Since Last Encounter (Free Text): 01/31/17 17:25 Patient is still on ventilator. patient is currently on CPAP, tolerating. Mild respiratory distress last night. patient is currently tolerating the feeding. Patient is opening her eyes Vital signs reviewed No neck vein distention noted Bilateral wheezing CVS regular heart sound, no murmur noted Abdomen soft, nontender. Extremities no pedal edema [employer] alert awake oriented -3, no functional neurological deficit Chest x-ray improvement in the pneumonia noted Assessment and recommendation: 81-year-old female admitted with pneumonia. Respiratory failure. Currently unable to clear the secretions. We will try weaning processas tolerated, but high-risk RE- intubation. Patient may need a tracheostomy. CCU Objective - Vital Signs / Intake & Output Vital Signs (Last 4 hours): Vital Signs Temp Pulse Resp BP Pulse Ox 01/31/17 17:17 150/78 01/31/17 16:00 98.5 F 01/31/17 15:59 79 15 143/78 100 01/31/17 14:59 88 15 162/86 H 100 01/31/17 13:59 84 9 L 141/70 100 Intake and Output (Last 8hrs): Intake & Output 01/31/17 01/31/17 01/31/17 06:59 14:59 22:59 Intake Total 630 1230 70 Output Total 200 Balance 430 1230 70 Weight 102 lb 1 oz Intake: Intake, IV Amount 350 800 Left Distal Port Internal 100 Jugular Left Medial Port Internal 700 Jugular Left Proximal Port 350 Internal Jugular Tube Feeding 280 280 70 Other 150 Output: Urine 200 Urine, Voided 200 Other: # Bowel Movements 1 - Physical Exam Head: Positive for: Atraumatic, Normocephalic Pupils: Positive for: PERRL Extroacular Muscles: Positive for: EOMI Mouth: Positive for: Moist Mucous Membranes, Other (intubated) Respiratory/Chest: Positive for: Wheezes, Decreased Breath Sounds, Rhonchi, Other (intubated). Negative for: Respiratory Distress, Accessory Muscle Use Cardiovascular: Positive for: Regular Rate and Rhythm, Murmurs, Normal S1, S2 Abdomen: Negative for: Tenderness, Distention, Peritoneal Signs Upper Extremity: Positive for: Normal Inspection. Negative for: Edema Lower Extremity: Positive for: Normal Inspection. Negative for: Edema Neurological: Positive for: Other (intubated). Negative for: GCS=15 (GCS 11T) Skin: Positive for: Warm Psychiatric: Positive for: Alert, Other (intubated) - Medications Active Medications: Active Medications Generic Name Dose Route Start Last Admin Trade Name Freq PRN Reason Stop Dose Admin Acetaminophen 650 mg 01/17/17 21:49 01/18/17 15:23 Tylenol 325mg Tab PO 650 mg Q6 PRN Administration Pain, moderate (4-7) Aspirin 81 mg 01/28/17 10:00 01/31/17 09:44 Aspirin Chewable PO 81 mg DAILY [facility] Administration Enalapril Maleate 5 mg 01/26/17 12:45 01/31/17 09:43 Vasotec PO 5 mg DAILY [facility] Administration Propofol 1,000 mg in 100 mls @ 1.388 mls/hr 01/24/17 10:00 01/29/17 06:08 Diprivan IV 21.61 mcg/kg/min .Q24H PRN 6 mls/hr TITRATE PER MD ORDER Administration Protocol 5 MCG/KG/MIN Levetiracetam 750 mg/ Sodium 107.5 mls @ 420 mls/hr 01/27/17 13:00 01/31/17 13:10 Chloride IVPB 420 mls/hr Q12H [facility] Administration Azithromycin 500 mg/ Sodium 250 mls @ 250 mls/hr 01/28/17 10:00 01/31/17 09: 43 Chloride IVPB 250 mls/hr DAILY [facility] Administration Ferric Sodium Gluconate 110 mls @ 110 mls/hr 01/29/17 11:00 01/31/17 11:24 Complex 125 mg/ Sodium IVPB 02/06/17 10:01 110 mls/hr Chloride DAILY [facility] Administration Linezolid 600 mg in 300 mls @ 200 mls/hr 01/29/17 22:00 01/31/17 11:25 Zyvox 600mg/300ml D5w IVPB 200 mls/hr Q12 [facility] Administration Aztreonam 1 gm/ Sodium 100 mls @ 100 mls/hr 01/31/17 10:00 01/31/17 17:17 Chloride IVPB 100 mls/hr Q8H [facility] Administration Insulin Aspart 0 unit 01/25/17 12:00 01/31/17 12:30 Novolog SC Not Given Q6 [facility] Protocol Insulin Glargine 20 unit 01/25/17 22:00 01/30/17 21:34 Lantus SC 20 u HS [facility] Administration Levothyroxine Sodium 25 mcg 01/18/17 06:30 01/31/17 05:59 Synthroid PO 25 mcg DAILY@0630 [facility] Administration Metoprolol Tartrate 25 mg 01/26/17 18:00 01/31/17 17:17 Lopressor PO 25 mg BID [facility] Administration Nystatin 1 applic 01/24/17 18:00 01/31/17 17:21 Nystop Topical Powder TOP 1 applic BID [facility] Administration Pantoprazole Sodium 40 mg 01/19/17 10:00 01/31/17 09:43 Protonix Inj IVP 40 mg DAILY [facility] Administration Rosuvastatin Calcium 20 mg 01/18/17 22:00 01/30/17 21:34 Crestor PO 20 mg HS [facility] Administration Saccharomyces Boulardii 250 mg 01/18/17 18:00 01/31/17 17:18 Florastor PO 250 mg BID [facility] Administration Spironolactone 12.5 mg 01/20/17 18:00 01/31/17 17:21 Aldactone PO 12.5 mg BID [facility] Administration - Patient Studies Lab Studies: Microbiology Studies 01/29/17 21:00 Blood Culture - Preliminary Blood-Thru Central Line NO GROWTH AFTER 24 HOURS 01/29/17 21:00 Blood Culture - Preliminary Blood-Thru Central Line NO GROWTH AFTER 24 HOURS Lab Studies 01/31/17 01/31/17 01/31/17 Range/Units 12:23 12:21 05:17 Puncture Site L bra pCO2 39 (35-45) mm/Hg pO2 132 H (80-100) mm/Hg HCO3 27.7 (21-28) mmol/L ABG pH 7.46 H (7.35-7.45) ABG Total CO2 28.9 H (22-28) mmol/L ABG O2 Saturation 99.0 H (95-98) % ABG Base Excess 3.6 H (-2.0-3.0) mmol/L ABG Hemoglobin 8.5 L (11.7-17.4) g/dL ABG Carboxyhemoglobin 1.4 (0.5-1.5) % POC ABG HHb (Measured) 1.0 (0.0-5.0) % ABG Methemoglobin 1.3 (0.0-3.0) % Singh Test Na A-a O2 Difference 104.0 mm/Hg Respiratory Index 0.8 Hgb O2 Saturation 96.3 (95.0-98.0) % Vent Mode Prvc Mechanical Rate 12 FiO2 40.0 % Tidal Volume 400 PEEP 5 POC Glucose (mg/dL) 75 69 (65-110) mg/dL 01/31/17 01/30/17 01/30/17 Range/Units 04:57 23:46 17:25 Puncture Site pCO2 (35-45) mm/Hg pO2 (80-100) mm/Hg HCO3 (21-28) mmol/L ABG pH (7.35-7.45) ABG Total CO2 (22-28) mmol/L ABG O2 Saturation (95-98) % ABG Base Excess (-2.0-3.0) mmol/L ABG Hemoglobin (11.7-17.4) g/dL ABG Carboxyhemoglobin (0.5-1.5) % POC ABG HHb (Measured) (0.0-5.0) % ABG Methemoglobin (0.0-3.0) % Singh Test A-a O2 Difference mm/Hg Respiratory Index Hgb O2 Saturation (95.0-98.0) % Vent Mode Mechanical Rate FiO2 % Tidal Volume PEEP POC Glucose (mg/dL) 74 131 H 202 H (65-110) mg/dL Laboratory Results - last 24 hr 01/30/17 01/30/17 01/31/17 17:25 23:46 04:57 Puncture Site pCO2 pO2 HCO3 ABG pH ABG Total CO2 ABG O2 Saturation ABG Base Excess ABG Hemoglobin ABG Carboxyhemoglobin POC ABG HHb (Measured) ABG Methemoglobin Singh Test A-a O2 Difference Respiratory Index Hgb O2 Saturation Vent Mode Mechanical Rate FiO2 Tidal Volume PEEP POC Glucose (mg/dL) 202 H 131 H 74 01/31/17 01/31/17 01/31/17 05:17 12:21 12:23 Puncture Site L bra pCO2 39 pO2 132 H HCO3 27.7 ABG pH 7.46 H ABG Total CO2 28.9 H ABG O2 Saturation 99.0 H ABG Base Excess 3.6 H ABG Hemoglobin 8.5 L ABG Carboxyhemoglobin 1.4 POC ABG HHb (Measured) 1.0 ABG Methemoglobin 1.3 Singh Test Na A-a O2 Difference 104.0 Respiratory Index 0.8 Hgb O2 Saturation 96.3 Vent Mode Prvc Mechanical Rate 12 FiO2 40.0 Tidal Volume 400 PEEP 5 POC Glucose (mg/dL) 69 75 Fingerstick Blood Sugar Results: 75
--- NOTE | 2017-01-31 17:26 | CP.PCM.PN ---
Subjective - Date & Time of Evaluation Date of Evaluation: 01/31/17 Time of Evaluation: 17:26 - Subjective Subjective: Patient is still on ventilator.awakeand alert. patient is currently on CPAP, tolerating. Mild respiratory distress last night. patient is currently tolerating the feeding. wants her mittens to be removed Objective - Vital Signs/Intake and Output Vital Signs (last 24 hours): Temp Pulse Resp BP Pulse Ox 98.5 F 79 15 150/78 100 01/31/17 16:00 01/31/17 15:59 01/31/17 15:59 01/31/17 17:17 01/31/17 15:59 Intake and Output: 01/31/17 01/31/17 06:59 18:59 Intake Total 1070 1300 Output Total 200 Balance 870 1300 - Medications Medications: Current Medications Acetaminophen (Tylenol 325mg Tab) 650 mg PO Q6 PRN PRN Reason: Pain, moderate (4-7) Last Admin: 01/18/17 15:23 Dose: 650 mg Aspirin (Aspirin Chewable) 81 mg PO DAILY [facility] Last Admin: 01/31/17 09:44 Dose: 81 mg Enalapril Maleate (Vasotec) 5 mg PO DAILY [facility] Last Admin: 01/31/17 09:43 Dose: 5 mg Propofol (Diprivan) 1,000 mg in 100 mls @ 1.388 mls/hr IV .Q24H PRN; Protocol; 5 MCG/KG/MIN PRN Reason: TITRATE PER MD ORDER Last Admin: 01/29/17 06:08 Dose: 21.61 mcg/kg/min, 6 mls/hr Levetiracetam 750 mg/ Sodium (Chloride) 107.5 mls @ 420 mls/hr IVPB Q12H [facility] Last Admin: 01/31/17 13:10 Dose: 420 mls/hr Azithromycin 500 mg/ Sodium (Chloride) 250 mls @ 250 mls/hr IVPB DAILY [facility] Last Admin: 01/31/17 09:43 Dose: 250 mls/hr Ferric Sodium Gluconate Complex 125 mg/ Sodium Chloride 110 mls @ 110 mls/hr IVPB DAILY [facility] Stop: 02/06/17 10:01 Last Admin: 01/31/17 11:24 Dose: 110 mls/hr Linezolid (Zyvox 600mg/300ml D5w) 600 mg in 300 mls @ 200 mls/hr IVPB Q12 [facility] Last Admin: 01/31/17 11:25 Dose: 200 mls/hr Aztreonam 1 gm/ Sodium (Chloride) 100 mls @ 100 mls/hr IVPB Q8H [facility] Last Admin: 01/31/17 17:17 Dose: 100 mls/hr Insulin Aspart (Novolog) 0 unit SC Q6 [facility] PRN Reason: Protocol Last Admin: 01/31/17 12:30 Dose: Not Given Insulin Glargine (Lantus) 20 unit SC [facility] Last Admin: 01/30/17 21:34 Dose: 20 u Levothyroxine Sodium (Synthroid) 25 mcg PO DAILY@0630 [facility] Last Admin: 01/31/17 05:59 Dose: 25 mcg Metoprolol Tartrate (Lopressor) 25 mg PO BID [facility] Last Admin: 01/31/17 17:17 Dose: 25 mg Nystatin (Nystop Topical Powder) 1 applic TOP BID [facility] Last Admin: 01/31/17 17:21 Dose: 1 applic Pantoprazole Sodium (Protonix Inj) 40 mg IVP DAILY [facility] Last Admin: 01/31/17 09:43 Dose: 40 mg Rosuvastatin Calcium (Crestor) 20 mg PO [facility] Last Admin: 01/30/17 21:34 Dose: 20 mg Saccharomyces Boulardii (Florastor) 250 mg PO BID [facility] Last Admin: 01/31/17 17:18 Dose: 250 mg Spironolactone (Aldactone) 12.5 mg PO BID [facility] Last Admin: 01/31/17 17:21 Dose: 12.5 mg - Labs Labs: 01/29/17 06:48 01/29/17 06:48 - Constitutional Appears: No Acute Distress, Cachectic, Chronically Ill - Head Exam Head Exam: NORMAL INSPECTION - Eye Exam Eye Exam: EOMI, PERRL - ENT Exam ENT Exam: Mucous Membranes Moist, Normal Exam - Neck Exam Neck Exam: Normal Inspection - Respiratory Exam Respiratory Exam: Clear to Ausculation Bilateral - Cardiovascular Exam Cardiovascular Exam: Irregular Rhythm, +S1, +S2 - GI/Abdominal Exam GI & Abdominal Exam: Soft, Normal Bowel Sounds - Extremities Exam Extremities Exam: absent: Calf Tenderness Additional comments: bilateral venodyne . - Neurological Exam Neurological Exam: Alert, Awake, Oriented x3 - Psychiatric Exam Psychiatric exam: Normal Mood - Skin Skin Exam: Normal Color, Warm Assessment and Plan (1) Sepsis Assessment & Plan: ON IV ZYVOX 600MG IV Q 12HRLY. 01/29/17. CONTINUE IV AZACTAM DECREASE DOSE 1GM IV Q 8HRLY. 01/18/17 CONTINUE IV AZITHROMAX 500MG I QD DAILY .01/24/17 WATCH H/H AND PLT. REPEAT BLOOD CULTURES 01/29/17 -VE X 24HRS. Status: Acute Status: Acute (2) Respiratory failure Assessment & Plan: PT ON VENTILATOR. 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 WEANING PER PULMONARY. PER DR CLOUD PT MAY NEED TRACHEOTOMY IF UNABLE TO WEAN. Status: Acute (3) Pneumonia Assessment & Plan: ON IV ABX . F/U SPUTUM CULTURES. Status: Acute (4) Hypertension Status: Chronic (5) UTI (urinary tract infection) due to Enterococcus Assessment & Plan: PT HAS VRE. ON IV ZYVOX. ON CONTACT PRECAUTIONS. Status: Acute
[2017-01-31] MEDS: Albuterol-Ipratrop 3 mg / 0.5 (3 ml) UD INH SCH (20:21)
--- NOTE | 2017-01-31 20:42 | PN ---
DATE: SUBJECTIVE: Patient is still on a ventilator. PHYSICAL EXAMINATION: VITAL SIGNS: Blood pressure 143/78, heart rate 79, temperature 98.5, and respirations 15. HEENT: Normocephalic. CHEST: Bilateral rhonchi. HEART: S1 and S2, regular. EXTREMITIES: Contraction deformity. DIAGNOSTIC DATA: Chest x-ray revealed right upper lobe facial edema, bilateral nodular opacities consistent with bilateral pneumonitis, small left pleural effusion. Today's blood sugars are 74, 69, and 75. Blood culture taken on 01/29/2017 is negative after 24 hours. ASSESSMENT: 1. Respiratory failure. 2. History of paroxysmal reentrant supraventricular tachycardia. 3. Systolic heart failure. 4. Anemia. RECOMMENDATIONS: Continue current aspirin 81 mg once a day, Aldactone 12.5 mg twice a day, Zithromax 500 mg intravenously daily, Azactam 1 g intravenously q.8 hours, Lopressor 25 mg twice a day, Vasotec 5 mg daily. I discussed the case with salvage engineer, Dr. Weldon and if the possibility of initiating dobutamine would improve the outcome; however, according to Dr. Weldon, that the reason for the patient's failure after extubation with lung collapse and if needed, the patient will need some degree of inspiratory pressure to maintain her lungs from collapse regardless of ionotropic therapy and tomorrow it will be discussed with the family, the need for tracheostomy, the patient may require long-term ventilatory support. Florian Crowell MD
--- NOTE | 2017-01-31 23:09 | CP.PCM.PN ---
Subjective - Date & Time of Evaluation Date of Evaluation: 01/31/17 Time of Evaluation: 20:00 - Subjective Subjective: Pt remains on ventilator, less dyspneac, more alert, her oxygen supplementation has gone down Objective - Vital Signs/Intake and Output Vital Signs (last 24 hours): Temp Pulse Resp BP Pulse Ox 98.3 F 96 H 14 154/70 H 100 01/31/17 20:00 01/31/17 22:00 01/31/17 22:00 01/31/17 21:59 01/31/17 22:00 Intake and Output: 01/31/17 02/01/17 18:59 06:59 Intake Total 1570 540 Output Total 250 200 Balance 1320 340 - Medications Medications: Current Medications Acetaminophen (Tylenol 325mg Tab) 650 mg PO Q6 PRN PRN Reason: Pain, moderate (4-7) Last Admin: 01/18/17 15:23 Dose: 650 mg Albuterol/Ipratropium (Duoneb 3 Mg/0.5 Mg (3 Ml) Ud) 3 ml INH RQ6 [facility] Last Admin: 01/31/17 20:21 Dose: 3 ml Aspirin (Aspirin Chewable) 81 mg PO DAILY [facility] Last Admin: 01/31/17 09:44 Dose: 81 mg Enalapril Maleate (Vasotec) 5 mg PO DAILY [facility] Last Admin: 01/31/17 09:43 Dose: 5 mg Enoxaparin Sodium (Lovenox) 40 mg SC DAILY [facility] Propofol (Diprivan) 1,000 mg in 100 mls @ 1.388 mls/hr IV .Q24H PRN; Protocol; 5 MCG/KG/MIN PRN Reason: TITRATE PER MD ORDER Last Admin: 01/29/17 06:08 Dose: 21.61 mcg/kg/min, 6 mls/hr Levetiracetam 750 mg/ Sodium (Chloride) 107.5 mls @ 420 mls/hr IVPB Q12H [facility] Last Admin: 01/31/17 13:10 Dose: 420 mls/hr Azithromycin 500 mg/ Sodium (Chloride) 250 mls @ 250 mls/hr IVPB DAILY [facility] Last Admin: 01/31/17 09:43 Dose: 250 mls/hr Ferric Sodium Gluconate Complex 125 mg/ Sodium Chloride 110 mls @ 110 mls/hr IVPB DAILY [facility] Stop: 02/06/17 10:01 Last Admin: 01/31/17 11:24 Dose: 110 mls/hr Linezolid (Zyvox 600mg/300ml D5w) 600 mg in 300 mls @ 200 mls/hr IVPB Q12 [facility] Last Admin: 01/31/17 21:48 Dose: 200 mls/hr Aztreonam 1 gm/ Sodium (Chloride) 100 mls @ 100 mls/hr IVPB Q8H [facility] Last Admin: 01/31/17 17:17 Dose: 100 mls/hr Insulin Aspart (Novolog) 0 unit SC Q6 [facility] PRN Reason: Protocol Last Admin: 01/31/17 18:00 Dose: Not Given Insulin Glargine (Lantus) 20 unit SC [facility] Last Admin: 01/30/17 21:34 Dose: 20 u Levothyroxine Sodium (Synthroid) 25 mcg PO DAILY@0630 [facility] Last Admin: 01/31/17 05:59 Dose: 25 mcg Metoprolol Tartrate (Lopressor) 25 mg PO BID [facility] Last Admin: 01/31/17 17:17 Dose: 25 mg Nystatin (Nystop Topical Powder) 1 applic TOP BID [facility] Last Admin: 01/31/17 17:21 Dose: 1 applic Pantoprazole Sodium (Protonix Inj) 40 mg IVP DAILY [facility] Last Admin: 01/31/17 09:43 Dose: 40 mg Rosuvastatin Calcium (Crestor) 20 mg PO [facility] Last Admin: 01/31/17 21:48 Dose: 20 mg Saccharomyces Boulardii (Florastor) 250 mg PO BID [facility] Last Admin: 01/31/17 17:18 Dose: 250 mg Spironolactone (Aldactone) 12.5 mg PO BID [facility] Last Admin: 01/31/17 17:21 Dose: 12.5 mg - Labs Labs: 01/29/17 06:48 01/29/17 06:48 - Constitutional Appears: No Acute Distress, Chronically Ill - Head Exam Head Exam: ATRAUMATIC, NORMAL INSPECTION, NORMOCEPHALIC - Eye Exam Eye Exam: EOMI, Normal appearance, PERRL Pupil Exam: NORMAL ACCOMODATION, PERRL - Respiratory Exam Respiratory Exam: Decreased Breath Sounds, Rales - Cardiovascular Exam Cardiovascular Exam: REGULAR RHYTHM, +S1, +S2. absent: Murmur - GI/Abdominal Exam GI & Abdominal Exam: Soft, Normal Bowel Sounds. absent: Tenderness - Rectal Exam Rectal Exam: Deferred Assessment and Plan (1) Respiratory failure Assessment & Plan: attempt weaning Status: Acute (2) Seizure disorder Status: Acute (3) Uncontrolled blood glucose Status: Acute (4) Systolic CHF Status: Acute
[2017-02-01] MEDS: (Lantus) Insulin Glargine, Recombinant SC SCH ×2 (00:13→22:30)
[2017-02-01] MEDS: (Novolog) Insulin Aspart, Recombinant 100 u/ml 10 ml vial SC SCH ×4 (00:14→17:34)
[2017-02-01] MEDS: Aztreonam 1 GM in Sodium Chloride 0.9% 100 ML IVPB SCH ×3 (01:58→17:28)
[2017-02-01] MEDS: Albuterol-Ipratrop 3 mg / 0.5 (3 ml) UD INH SCH ×4 (02:14→20:28)
[2017-02-01] MEDS: Levothyroxine 25 MCG TAB PO SCH (06:01)
[2017-02-01 06:13] LABS: ARTERIAL BLOOD GAS HCO3 28.1 mmol/L (21-28); ARTERIAL BLOOD GAS HEMOGLOBIN 8.2 g/dL (11.7-17.4); ARTERIAL BLOOD GAS O2 SAT 99.1 % (95-98); ARTERIAL BLOOD GAS PCO2 41 mm/Hg (35-45); ARTERIAL BLOOD GAS PH 7.45 (7.35-7.45); ARTERIAL BLOOD GAS PO2 157 mm/Hg (80-100); ARTERIAL BLOOD GAS TCO2 29.8 mmol/L (22-28)
[2017-02-01 06:39] LABS: EOS # 0.2 K/uL (0.0-0.7); HEMOGLOBIN 8.3 g/dL (11.0-16.0); LYMPH # 1.6 K/uL (1.0-4.3); LYMPH % 31.1 % (20.0-40.0); MEAN CELL VOLUME 80.5 fL (81.0-99.0); MEAN CORPUSCULAR HEMOGLOBIN 26.6 pg (27.0-31.0); MEAN PLATELET VOLUME 8.3 fL (7.2-11.7); MONO # 0.5 K/uL (0.0-0.8); NEUT # 2.8 K/uL (1.8-7.0); NEUT % 54.9 % (50.0-75.0); NRBC % 0.1 % (0.0-2.0); RBC 3.12 Mil/uL (3.80-5.20); RED CELL DISTRIBUTION WIDTH 15.2 % (11.5-14.5); WHITE BLOOD COUNT 5.1 K/uL (4.8-10.8)
[2017-02-01 06:51] LABS: PROTHROMBIN TIME 11.7 SECONDS (9.7-12.2)
[2017-02-01 06:57] LABS: ALB/GLOB RATIO 0.8 (1.0-2.1); ALBUMIN 2.9 g/dL (3.5-5.0); ALT/SGPT 29 U/L (9-52); AST/SGOT 26 U/L (14-36); BLOOD UREA NITROGEN 20 mg/dL (7-17); CALCIUM 7.9 mg/dl (8.6-10.4); GFR AFRICAN-AMERICAN > 60; GFR NON-AFRICAN AMERICAN > 60
[2017-02-01] MEDS: Enoxaparin 40 mg Syringe SC SCH (09:17)
[2017-02-01] MEDS: Saccharomyces Boulardi 250 mg Cap PO SCH ×2 (09:18→17:28)
[2017-02-01] MEDS: Linezolid 600 mg in D5W 300 ml 600 MG/300 ML BAG IVPB SCH ×2 (09:20→22:16)
--- NOTE | 2017-02-01 10:17 | RAD ---
HISTORY: ff up chf, pneumonia COMPARISON: No prior. FINDINGS: LUNGS: No current consolidation appreciated. PLEURA: No significant pleural effusion identified, no pneumothorax apparent. Right mid to upper lung zone pleural thickening with contiguous oval old right rib fractures CARDIOVASCULAR: Mild cardiomegaly. Chronic pulmonary venous congestion suspect OSSEOUS STRUCTURES: Diffuse thoracic spondylosis, generalized osteopenia. Bilateral shoulder arthrosis with deformity of the right shoulder -likely relating to old trauma and similar-appearing VISUALIZED UPPER ABDOMEN: Normal. OTHER FINDINGS: The endotracheal tube terminates 1 cm proximal to the iwona. The nasogastric tube terminates in the stomach. The left IJV line terminates in the SVC. IMPRESSION: Support lines and tubes as before. Cardiomegaly and chronic pulmonary venous congestion -similar. No interval change here perceived Generalized osteopenia, arthrosis, old right rib fractures with contiguous right pleural thickening and inferred
[2017-02-01] MEDS: Azithromycin 500 MG in Sodium Chloride 0.9% 250 ML IVPB SCH (11:28)
--- NOTE | 2017-02-01 11:55 | CP.PCM.CON ---
History of Present Illness - History of Present Illness History of Present Illness: General Surgery Dr. Hunter 81 y/o F w/ Afib, HTN, and CVA [facility]/o chest pain and vomiting. [employer] was called on 01/18/17 for respiratory failure, at which time pt was intubated and sedated. Surgery is consulted for Trach placement. PMHx: Afib, HTN, CVA, seizures, anxiety/depression, hypothyroidism, SDH Meds: reviewed in chart ALL: PCN, shllfish PSHx: Right Hip repair, Crainiotomy SHx: jail FHx: noncontributory Review of Systems - Review of Systems Systems not reviewed;Unavailable: Intubated Past Patient History - Past Medical History & Family History Past Medical History?: Yes - Past Social History Smoking Status: Never Smoked - CARDIAC Hx Cardiac Disorders: Yes (A.Fib) Hx Hypertension: Yes - PULMONARY Hx Respiratory Disorders: No - NEUROLOGICAL Hx Seizures: Yes - HEENT Hx HEENT Problems: No - RENAL Hx Chronic Kidney Disease: No - ENDOCRINE/METABOLIC Hx Diabetes Mellitus Type 2: Yes Hx Hypothyroidism: Yes - HEMATOLOGICAL/ONCOLOGICAL Hx Blood Disorders: No - INTEGUMENTARY Hx Dermatological Problems: No - MUSCULOSKELETAL/RHEUMATOLOGICAL Hx Falls: Yes Hx Fractures: Yes (Left Tibia) - GASTROINTESTINAL Hx Gastritis: Yes - GENITOURINARY/GYNECOLOGICAL Hx Genitourinary Disorders: No - PSYCHIATRIC Hx Anxiety: Yes Hx Depression: Yes Hx Substance Use: No - SURGICAL HISTORY Hx Surgeries: Yes Other/Comment: Effusion/fx of lt knee. Subdural hematoma Crainiotomy 2 years ago. hip repair - ANESTHESIA Hx Anesthesia: Yes Hx Anesthesia Reactions: No Hx Malignant Hyperthermia: No Meds Allergies/Adverse Reactions: Allergies Allergy/AdvReac Type Severity Reaction Status Date / Time Penicillins Allergy Verified 01/17/17 18:32 shellfish derived Allergy Verified 01/17/17 18:32 tuna Allergy Uncoded 01/17/17 18:32 - Medications Medications: Current Medications Acetaminophen (Tylenol 325mg Tab) 650 mg PO Q6 PRN PRN Reason: Pain, moderate (4-7) Last Admin: 01/18/17 15:23 Dose: 650 mg Albuterol/Ipratropium (Duoneb 3 Mg/0.5 Mg (3 Ml) Ud) 3 ml INH RQ6 SCOTTY Last Admin: 02/01/17 07:40 Dose: 3 ml Aspirin (Aspirin Chewable) 81 mg PO DAILY [facility] Last Admin: 02/01/17 09:17 Dose: 81 mg Enalapril Maleate (Vasotec) 5 mg PO DAILY [facility] Last Admin: 02/01/17 09:17 Dose: 5 mg Enoxaparin Sodium (Lovenox) 40 mg SC DAILY [facility] Last Admin: 02/01/17 09:17 Dose: 40 mg Propofol (Diprivan) 1,000 mg in 100 mls @ 1.388 mls/hr IV .Q24H PRN; Protocol; 5 MCG/KG/MIN PRN Reason: TITRATE PER MD ORDER Last Admin: 01/29/17 06:08 Dose: 21.61 mcg/kg/min, 6 mls/hr Levetiracetam 750 mg/ Sodium (Chloride) 107.5 mls @ 420 mls/hr IVPB Q12H [facility] Last Admin: 02/01/17 00:13 Dose: 420 mls/hr Azithromycin 500 mg/ Sodium (Chloride) 250 mls @ 250 mls/hr IVPB DAILY [facility] Last Admin: 02/01/17 11:28 Dose: 250 mls/hr Ferric Sodium Gluconate Complex 125 mg/ Sodium Chloride 110 mls @ 110 mls/hr IVPB DAILY [facility] Stop: 02/06/17 10:01 Last Admin: 01/31/17 11:24 Dose: 110 mls/hr Linezolid (Zyvox 600mg/300ml D5w) 600 mg in 300 mls @ 200 mls/hr IVPB Q12 [facility] Last Admin: 02/01/17 09:20 Dose: 200 mls/hr Aztreonam 1 gm/ Sodium (Chloride) 100 mls @ 100 mls/hr IVPB Q8H [facility] Last Admin: 02/01/17 09:18 Dose: 100 mls/hr Insulin Aspart (Novolog) 0 unit SC Q6 [facility] PRN Reason: Protocol Last Admin: 02/01/17 05:53 Dose: Not Given Insulin Glargine (Lantus) 20 unit SC HS [facility] Last Admin: 02/01/17 00:13 Dose: 20 u Levothyroxine Sodium (Synthroid) 25 mcg PO DAILY@0630 [facility] Last Admin: 02/01/17 06:01 Dose: 25 mcg Metoprolol Tartrate (Lopressor) 25 mg PO BID [facility] Last Admin: 02/01/17 09:19 Dose: 25 mg Nystatin (Nystop Topical Powder) 1 applic TOP BID [facility] Last Admin: 02/01/17 09:19 Dose: 1 applic Pantoprazole Sodium (Protonix Inj) 40 mg IVP DAILY [facility] Last Admin: 02/01/17 09:18 Dose: 40 mg Rosuvastatin Calcium (Crestor) 20 mg PO HS [facility] Last Admin: 01/31/17 21:48 Dose: 20 mg Saccharomyces Boulardii (Florastor) 250 mg PO BID [facility] Last Admin: 02/01/17 09:18 Dose: 250 mg Spironolactone (Aldactone) 12.5 mg PO BID [facility] Last Admin: 02/01/17 09:18 Dose: 12.5 mg Physical Exam - Constitutional Appears: Non-toxic, No Acute Distress - Head Exam Head Exam: NORMAL INSPECTION - Eye Exam Eye Exam: Normal appearance - ENT Exam ENT Exam: Mucous Membranes Moist Additional comments: ETT and OGT in place - Respiratory Exam Respiratory Exam: NORMAL BREATHING PATTERN. absent: Accessory Muscle Use, Respiratory Distress Additional comments: on pressure support - Cardiovascular Exam Cardiovascular Exam: absent: Bradycardia, Tachycardia - GI/Abdominal Exam GI & Abdominal Exam: Soft. absent: Distended, Tenderness - Extremities Exam Extremities exam: Positive for: normal inspection - Neurological Exam Neurological exam: Alert - Psychiatric Exam Psychiatric exam: Normal Affect, Normal Mood - Skin Skin Exam: Dry, Intact, Normal Color, Warm Results - Vital Signs Recent Vital Signs: Last Vital Signs Temp 97.8 F 02/01/17 08:00 Pulse 79 02/01/17 11:00 Resp 25 H 02/01/17 11:00 BP 138/68 02/01/17 10:24 Pulse Ox 99 02/01/17 11:00 - Labs Result Diagrams: 02/01/17 06:24 02/01/17 06:25 Labs: Laboratory Results - last 24 hr 01/31/17 01/31/17 01/31/17 12:21 12:23 17:40 WBC RBC Hgb Hct MCV MCH MCHC RDW Plt Count MPV Neut % (Auto) Lymph % (Auto) [place] % (Auto) Eos % (Auto) Baso % (Auto) Neut # Lymph # [place] # Eos # Baso # PT INR APTT Puncture Site pCO2 pO2 HCO3 ABG pH ABG Total CO2 ABG O2 Saturation ABG Base Excess ABG Hemoglobin ABG Carboxyhemoglobin POC ABG HHb (Measured) ABG Methemoglobin Singh Test A-a O2 Difference Respiratory Index Hgb O2 Saturation Vent Mode Mechanical Rate FiO2 Tidal Volume PEEP Sodium Potassium Chloride Carbon Dioxide Anion Gap BUN Creatinine Est GFR ( Amer) Est GFR (Non-Af Amer) POC Glucose (mg/dL) 69 75 113 H Random Glucose Calcium Phosphorus Magnesium Total Bilirubin AST ALT Alkaline Phosphatase Total Protein Albumin Globulin Albumin/Globulin Ratio 01/31/17 02/01/17 02/01/17 23:48 05:17 06:06 WBC RBC Hgb Hct MCV MCH MCHC RDW Plt Count MPV Neut % (Auto) Lymph % (Auto) [place] % (Auto) Eos % (Auto) Baso % (Auto) Neut # Lymph # [place] # Eos # Baso # PT INR APTT Puncture Site L bra pCO2 41 pO2 157 H HCO3 28.1 H ABG pH 7.45 ABG Total CO2 29.8 H ABG O2 Saturation 99.1 H ABG Base Excess 4.1 H ABG Hemoglobin 8.2 L ABG Carboxyhemoglobin 1.7 H POC ABG HHb (Measured) 0.9 ABG Methemoglobin 0.9 Singh Test Na A-a O2 Difference 77.0 Respiratory Index 0.5 Hgb O2 Saturation 96.5 Vent Mode Prvc Mechanical Rate 12 FiO2 40.0 Tidal Volume 400 PEEP 5 Sodium Potassium Chloride Carbon Dioxide Anion Gap BUN Creatinine Est GFR ( Amer) Est GFR (Non-Af Amer) POC Glucose (mg/dL) 188 H 146 H Random Glucose Calcium Phosphorus Magnesium Total Bilirubin AST ALT Alkaline Phosphatase Total Protein Albumin Globulin Albumin/Globulin Ratio 02/01/17 02/01/17 02/01/17 06:24 06:25 06:25 WBC 5.1 RBC 3.12 L Hgb 8.3 L Hct 25.1 L MCV 80.5 L MCH 26.6 L MCHC 33.0 RDW 15.2 H Plt Count 211 MPV 8.3 Neut % (Auto) 54.9 Lymph % (Auto) 31.1 [place] % (Auto) 9.0 Eos % (Auto) 4.0 Baso % (Auto) 1.0 Neut # 2.8 Lymph # 1.6 [place] # 0.5 Eos # 0.2 Baso # 0.0 PT 11.7 INR 1.0 APTT 36 H Puncture Site pCO2 pO2 HCO3 ABG pH ABG Total CO2 ABG O2 Saturation ABG Base Excess ABG Hemoglobin ABG Carboxyhemoglobin POC ABG HHb (Measured) ABG Methemoglobin Singh Test A-a O2 Difference Respiratory Index Hgb O2 Saturation Vent Mode Mechanical Rate FiO2 Tidal Volume PEEP Sodium 134 Potassium 4.4 Chloride 102 Carbon Dioxide 27 Anion Gap 9 L BUN 20 H Creatinine 0.4 L Est GFR ( Amer) > 60 Est GFR (Non-Af Amer) > 60 POC Glucose (mg/dL) Random Glucose 151 H Calcium 7.9 L Phosphorus 3.2 Magnesium 2.0 Total Bilirubin 0.3 AST 26 ALT 29 Alkaline Phosphatase 141 H Total Protein 6.5 Albumin 2.9 L Globulin 3.6 Albumin/Globulin Ratio 0.8 L 02/01/17 11:36 WBC RBC Hgb Hct MCV MCH MCHC RDW Plt Count MPV Neut % (Auto) Lymph % (Auto) [place] % (Auto) Eos % (Auto) Baso % (Auto) Neut # Lymph # [place] # Eos # Baso # PT INR APTT Puncture Site pCO2 pO2 HCO3 ABG pH ABG Total CO2 ABG O2 Saturation ABG Base Excess ABG Hemoglobin ABG Carboxyhemoglobin POC ABG HHb (Measured) ABG Methemoglobin Singh Test A-a O2 Difference Respiratory Index Hgb O2 Saturation Vent Mode Mechanical Rate FiO2 Tidal Volume PEEP Sodium Potassium Chloride Carbon Dioxide Anion Gap BUN Creatinine Est GFR ( Amer) Est GFR (Non-Af Amer) POC Glucose (mg/dL) 163 H Random Glucose Calcium Phosphorus Magnesium Total Bilirubin AST ALT Alkaline Phosphatase Total Protein Albumin Globulin Albumin/Globulin Ratio - Imaging and Cardiology Chest x-ray Status: Report reviewed by me Assessment & Plan - Assessment and Plan (Free Text) Assessment: 81 y/o F w/ respiratory failure requiring mechanical ventilation - continue weaning per ICU - plan for trach and G-tube tomorrow @11am if pt still intubated - consent to be obtained from family - hold tube feeds after midnight - hold anti-coagulation - f/u AM CXR Pt discussed w/ Dr. Elsa Horowitz DO PGY2
[2017-02-01] MEDS: Ferric Sodium Gluconat Complex 125 MG in Sodium Chloride 0.9% 100 ML IVPB SCH (12:09)
--- NOTE | 2017-02-01 12:21 | CP.CCUPN ---
Addendum entered and electronically signed by Traci Garcia DO 02/01/17 14:25: patient self-extubated and was re-intubated Original Note: <Traci Garcia - Last Filed: 02/01/17 12:31> CCU Subjective - Physician Review Subjective (Free Text): 02/01/17 12:[address] Alfaro Patient seen at bedside. Patient has eyes open and indicates that she's awake. GCS12T ([id number]). No acute events overnight. Patient continued on CPAP trials CCU Objective - Vital Signs / Intake & Output Vital Signs (Last 4 hours): Vital Signs Pulse Resp BP Pulse Ox 02/01/17 11:00 79 25 H 99 02/01/17 10:24 72 7 L 138/68 100 02/01/17 10:14 78 13 136/53 L 100 02/01/17 10:00 75 11 L 100 02/01/17 09:19 135/63 02/01/17 09:17 135/63 02/01/17 09:08 82 12 135/63 100 02/01/17 09:00 76 12 100 Intake and Output (Last 8hrs): Intake & Output 01/31/17 02/01/17 02/01/17 22:59 06:59 14:59 Intake Total 880 615 640 Output Total 450 Balance 430 615 640 Weight 110 lb 7.225 oz Intake: Intake, IV Amount 400 200 400 Left Medial Port Internal 400 200 400 Jugular Tube Feeding 280 315 140 Other 200 100 100 Output: Urine 450 Urine, Voided 450 Other: # Voids Urine, Voided 1 # Bowel Movements 1 1 - Physical Exam Head: Positive for: Atraumatic, Normocephalic Pupils: Positive for: PERRL Extroacular Muscles: Positive for: EOMI Mouth: Positive for: Moist Mucous Membranes, Other (intubated) Respiratory/Chest: Positive for: Wheezes, Decreased Breath Sounds, Rhonchi, Other (intubated). Negative for: Respiratory Distress, Accessory Muscle Use Cardiovascular: Positive for: Regular Rate and Rhythm, Murmurs, Normal S1, S2 Abdomen: Negative for: Tenderness, Distention, Peritoneal Signs Upper Extremity: Positive for: Normal Inspection. Negative for: Edema Lower Extremity: Positive for: Normal Inspection. Negative for: Edema Neurological: Positive for: Other (intubated). Negative for: GCS=15 (GCS 11T) Skin: Positive for: Warm Psychiatric: Positive for: Alert, Other (intubated) - Medications Active Medications: Active Medications Generic Name Dose Route Start Last Admin Trade Name Freq PRN Reason Stop Dose Admin Acetaminophen 650 mg 01/17/17 21:49 01/18/17 15:23 Tylenol 325mg Tab PO 650 mg Q6 PRN Administration Pain, moderate (4-7) Albuterol/Ipratropium 3 ml 01/31/17 20:00 02/01/17 07:40 Duoneb 3 Mg/0.5 Mg (3 Ml) Ud INH 3 ml RQ6 SCOTTY Administration Aspirin 81 mg 01/28/17 10:00 02/01/17 09:17 Aspirin Chewable PO 81 mg DAILY SCOTTY Administration Enalapril Maleate 5 mg 01/26/17 12:45 02/01/17 09:17 Vasotec PO 5 mg DAILY SCOTTY Administration Enoxaparin Sodium 40 mg 02/01/17 10:00 02/01/17 09:17 Lovenox SC 40 mg DAILY SCOTTY Administration Propofol 1,000 mg in 100 mls @ 1.388 mls/hr 01/24/17 10:00 01/29/17 06:08 Diprivan IV 21.61 mcg/kg/min .Q24H PRN 6 mls/hr TITRATE PER MD ORDER Administration Protocol 5 MCG/KG/MIN Levetiracetam 750 mg/ Sodium 107.5 mls @ 420 mls/hr 01/27/17 13:00 02/01/17 00:13 Chloride IVPB 420 mls/hr Q12H SCOTTY Administration Azithromycin 500 mg/ Sodium 250 mls @ 250 mls/hr 01/28/17 10:00 02/01/17 11: 28 Chloride IVPB 250 mls/hr DAILY SCOTTY Administration Ferric Sodium Gluconate 110 mls @ 110 mls/hr 01/29/17 11:00 01/31/17 11:24 Complex 125 mg/ Sodium IVPB 02/06/17 10:01 110 mls/hr Chloride DAILY SCOTTY Administration Linezolid 600 mg in 300 mls @ 200 mls/hr 01/29/17 22:00 02/01/17 09:20 Zyvox 600mg/300ml D5w IVPB 200 mls/hr Q12 SCOTTY Administration Aztreonam 1 gm/ Sodium 100 mls @ 100 mls/hr 01/31/17 10:00 02/01/17 09:18 Chloride IVPB 100 mls/hr Q8H SCOTTY Administration Insulin Aspart 0 unit 01/25/17 12:00 02/01/17 05:53 Novolog SC Not Given Q6 [facility] Protocol Insulin Glargine 20 unit 01/25/17 22:00 02/01/17 00:13 Lantus SC 20 u HS SCOTTY Administration Levothyroxine Sodium 25 mcg 01/18/17 06:30 02/01/17 06:01 Synthroid PO 25 mcg DAILY@0630 SCOTTY Administration Metoprolol Tartrate 25 mg 01/26/17 18:00 02/01/17 09:19 Lopressor PO 25 mg BID SCOTTY Administration Nystatin 1 applic 01/24/17 18:00 02/01/17 09:19 Nystop Topical Powder TOP 1 applic BID SCOTTY Administration Pantoprazole Sodium 40 mg 01/19/17 10:00 02/01/17 09:18 Protonix Inj IVP 40 mg DAILY SCOTTY Administration Rosuvastatin Calcium 20 mg 01/18/17 22:00 01/31/17 21:48 Crestor PO 20 mg HS SCOTTY Administration Saccharomyces Boulardii 250 mg 01/18/17 18:00 02/01/17 09:18 Florastor PO 250 mg BID SCOTTY Administration Spironolactone 12.5 mg 01/20/17 18:00 02/01/17 09:18 Aldactone PO 12.5 mg BID SCOTTY Administration - Patient Studies Lab Studies: Microbiology Studies 01/29/17 Unknown Gram Stain - Final Trachasp Sputum Culture - Final NORMAL ORAL DANIEL 01/29/17 21:00 Blood Culture - Preliminary Blood-Thru [facility] NO GROWTH AFTER 48 HOURS 01/29/17 21:00 Blood Culture - Preliminary Blood-Thru Central Line NO GROWTH AFTER 48 HOURS Lab Studies 02/01/17 02/01/17 02/01/17 Range/Units 11:36 06:25 06:25 WBC (4.8-10.8) K/uL RBC (3.80-5.20) Mil/uL Hgb (11.0-16.0) g/dL Hct (34.0-47.0) % MCV (81.0-99.0) fL MCH (27.0-31.0) pg MCHC (33.0-37.0) g/dL RDW (11.5-14.5) % Plt Count (130-400) K/uL MPV (7.2-11.7) fL Neut % (Auto) (50.0-75.0) % Lymph % (Auto) (20.0-40.0) % [place] % (Auto) (0.0-10.0) % Eos % (Auto) (0.0-4.0) % Baso % (Auto) (0.0-2.0) % Neut # (1.8-7.0) K/uL Lymph # (1.0-4.3) K/uL [place] # (0.0-0.8) K/uL Eos # (0.0-0.7) K/uL Baso # (0.0-0.2) K/uL PT 11.7 (9.7-12.2) SECONDS INR 1.0 APTT 36 H (21-34) SECONDS Puncture Site pCO2 (35-45) mm/Hg pO2 (80-100) mm/Hg HCO3 (21-28) mmol/L ABG pH (7.35-7.45) ABG Total CO2 (22-28) mmol/L ABG O2 Saturation (95-98) % ABG Base Excess (-2.0-3.0) mmol/L ABG Hemoglobin (11.7-17.4) g/dL ABG Carboxyhemoglobin (0.5-1.5) % POC ABG HHb (Measured) (0.0-5.0) % ABG Methemoglobin (0.0-3.0) % Singh Test A-a O2 Difference mm/Hg Respiratory Index Hgb O2 Saturation (95.0-98.0) % Vent Mode Mechanical Rate FiO2 % Tidal Volume PEEP Sodium 134 (132-148) mmol/L Potassium 4.4 (3.6-5.2) mmol/L Chloride 102 (98-107) mmol/L Carbon Dioxide 27 (22-30) mmol/L Anion Gap 9 L (10-20) BUN 20 H (7-17) mg/dL Creatinine 0.4 L (0.7-1.2) mg/dL Est GFR ( Amer) > 60 Est GFR (Non-Af Amer) > 60 POC Glucose (mg/dL) 163 H (65-110) mg/dL Random Glucose 151 H (65-105) mg/dL Calcium 7.9 L (8.6-10.4) mg/dl Phosphorus 3.2 (2.5-4.5) mg/dL Magnesium 2.0 (1.6-2.3) mg/dL Total Bilirubin 0.3 (0.2-1.3) mg/dL AST 26 (14-36) U/L ALT 29 (9-52) U/L Alkaline Phosphatase 141 H (38-126) U/L Total Protein 6.5 (6.3-8.3) g/dL Albumin 2.9 L (3.5-5.0) g/dL Globulin 3.6 (2.2-3.9) gm/dL Albumin/Globulin Ratio 0.8 L (1.0-2.1) 02/01/17 02/01/17 02/01/17 Range/Units 06:24 06:06 05:17 WBC 5.1 (4.8-10.8) K/uL RBC 3.12 L (3.80-5.20) Mil/uL Hgb 8.3 L (11.0-16.0) g/dL Hct 25.1 L (34.0-47.0) % MCV 80.5 L (81.0-99.0) fL MCH 26.6 L (27.0-31.0) pg MCHC 33.0 (33.0-37.0) g/dL RDW 15.2 H (11.5-14.5) % Plt Count 211 (130-400) K/uL MPV 8.3 (7.2-11.7) fL Neut % (Auto) 54.9 (50.0-75.0) % Lymph % (Auto) 31.1 (20.0-40.0) % [place] % (Auto) 9.0 (0.0-10.0) % Eos % (Auto) 4.0 (0.0-4.0) % Baso % (Auto) 1.0 (0.0-2.0) % Neut # 2.8 (1.8-7.0) K/uL Lymph # 1.6 (1.0-4.3) K/uL [place] # 0.5 (0.0-0.8) K/uL Eos # 0.2 (0.0-0.7) K/uL Baso # 0.0 (0.0-0.2) K/uL PT (9.7-12.2) SECONDS INR APTT (21-34) SECONDS Puncture Site L bra pCO2 41 (35-45) mm/Hg pO2 157 H (80-100) mm/Hg HCO3 28.1 H (21-28) mmol/L ABG pH 7.45 (7.35-7.45) ABG Total CO2 29.8 H (22-28) mmol/L ABG O2 Saturation 99.1 H (95-98) % ABG Base Excess 4.1 H (-2.0-3.0) mmol/L ABG Hemoglobin 8.2 L (11.7-17.4) g/dL ABG Carboxyhemoglobin 1.7 H (0.5-1.5) % POC ABG HHb (Measured) 0.9 (0.0-5.0) % ABG Methemoglobin 0.9 (0.0-3.0) % Singh Test Na A-a O2 Difference 77.0 mm/Hg Respiratory Index 0.5 Hgb O2 Saturation 96.5 (95.0-98.0) % Vent Mode Prvc Mechanical Rate 12 FiO2 40.0 % Tidal Volume 400 PEEP 5 Sodium (132-148) mmol/L Potassium (3.6-5.2) mmol/L Chloride (98-107) mmol/L Carbon Dioxide (22-30) mmol/L Anion Gap (10-20) BUN (7-17) mg/dL Creatinine (0.7-1.2) mg/dL Est GFR ( Amer) Est GFR (Non-Af Amer) POC Glucose (mg/dL) 146 H (65-110) mg/dL Random Glucose (65-105) mg/dL Calcium (8.6-10.4) mg/dl Phosphorus (2.5-4.5) mg/dL Magnesium (1.6-2.3) mg/dL Total Bilirubin (0.2-1.3) mg/dL AST (14-36) U/L ALT (9-52) U/L Alkaline Phosphatase (38-126) U/L Total Protein (6.3-8.3) g/dL Albumin (3.5-5.0) g/dL Globulin (2.2-3.9) gm/dL Albumin/Globulin Ratio (1.0-2.1) 01/31/17 01/31/17 01/31/17 Range/Units 23:48 17:40 12:23 WBC (4.8-10.8) K/uL RBC (3.80-5.20) Mil/uL Hgb (11.0-16.0) g/dL Hct (34.0-47.0) % MCV (81.0-99.0) fL MCH (27.0-31.0) pg MCHC (33.0-37.0) g/dL RDW (11.5-14.5) % Plt Count (130-400) K/uL MPV (7.2-11.7) fL Neut % (Auto) (50.0-75.0) % Lymph % (Auto) (20.0-40.0) % [place] % (Auto) (0.0-10.0) % Eos % (Auto) (0.0-4.0) % Baso % (Auto) (0.0-2.0) % Neut # (1.8-7.0) K/uL Lymph # (1.0-4.3) K/uL [place] # (0.0-0.8) K/uL Eos # (0.0-0.7) K/uL Baso # (0.0-0.2) K/uL PT (9.7-12.2) SECONDS INR APTT (21-34) SECONDS Puncture Site pCO2 (35-45) mm/Hg pO2 (80-100) mm/Hg HCO3 (21-28) mmol/L ABG pH (7.35-7.45) ABG Total CO2 (22-28) mmol/L ABG O2 Saturation (95-98) % ABG Base Excess (-2.0-3.0) mmol/L ABG Hemoglobin (11.7-17.4) g/dL ABG Carboxyhemoglobin (0.5-1.5) % POC ABG HHb (Measured) (0.0-5.0) % ABG Methemoglobin (0.0-3.0) % Singh Test A-a O2 Difference mm/Hg Respiratory Index Hgb O2 Saturation (95.0-98.0) % Vent Mode Mechanical Rate FiO2 % Tidal Volume PEEP Sodium (132-148) mmol/L Potassium (3.6-5.2) mmol/L Chloride (98-107) mmol/L Carbon Dioxide (22-30) mmol/L Anion Gap (10-20) BUN (7-17) mg/dL Creatinine (0.7-1.2) mg/dL Est GFR ( Amer) Est GFR (Non-Af Amer) POC Glucose (mg/dL) 188 H 113 H 75 (65-110) mg/dL Random Glucose (65-105) mg/dL Calcium (8.6-10.4) mg/dl Phosphorus (2.5-4.5) mg/dL Magnesium (1.6-2.3) mg/dL Total Bilirubin (0.2-1.3) mg/dL AST (14-36) U/L ALT (9-52) U/L Alkaline Phosphatase (38-126) U/L Total Protein (6.3-8.3) g/dL Albumin (3.5-5.0) g/dL Globulin (2.2-3.9) gm/dL Albumin/Globulin Ratio (1.0-2.1) 01/31/ Range/Units 12:21 WBC (4.8-10.8) K/uL RBC (3.80-5.20) Mil/uL Hgb (11.0-16.0) g/dL Hct (34.0-47.0) % MCV (81.0-99.0) fL MCH (27.0-31.0) pg MCHC (33.0-37.0) g/dL RDW (11.5-14.5) % Plt Count (130-400) K/uL MPV (7.2-11.7) fL Neut % (Auto) (50.0-75.0) % Lymph % (Auto) (20.0-40.0) % [place] % (Auto) (0.0-10.0) % Eos % (Auto) (0.0-4.0) % Baso % (Auto) (0.0-2.0) % Neut # (1.8-7.0) K/uL Lymph # (1.0-4.3) K/uL [place] # (0.0-0.8) K/uL Eos # (0.0-0.7) K/uL Baso # (0.0-0.2) K/uL PT (9.7-12.2) SECONDS INR APTT (21-34) SECONDS Puncture Site pCO2 (35-45) mm/Hg pO2 (80-100) mm/Hg HCO3 (21-28) mmol/L ABG pH (7.35-7.45) ABG Total CO2 (22-28) mmol/L ABG O2 Saturation (95-98) % ABG Base Excess (-2.0-3.0) mmol/L ABG Hemoglobin (11.7-17.4) g/dL ABG Carboxyhemoglobin (0.5-1.5) % POC ABG HHb (Measured) (0.0-5.0) % ABG Methemoglobin (0.0-3.0) % Singh Test A-a O2 Difference mm/Hg Respiratory Index Hgb O2 Saturation (95.0-98.0) % Vent Mode Mechanical Rate FiO2 % Tidal Volume PEEP Sodium (132-148) mmol/L Potassium (3.6-5.2) mmol/L Chloride (98-107) mmol/L Carbon Dioxide (22-30) mmol/L Anion Gap (10-20) BUN (7-17) mg/dL Creatinine (0.7-1.2) mg/dL Est GFR ( Amer) Est GFR (Non-Af Amer) POC Glucose (mg/dL) 69 (65-110) mg/dL Random Glucose (65-105) mg/dL Calcium (8.6-10.4) mg/dl Phosphorus (2.5-4.5) mg/dL Magnesium (1.6-2.3) mg/dL Total Bilirubin (0.2-1.3) mg/dL AST (14-36) U/L ALT (9-52) U/L Alkaline Phosphatase (38-126) U/L Total Protein (6.3-8.3) g/dL Albumin (3.5-5.0) g/dL Globulin (2.2-3.9) gm/dL Albumin/Globulin Ratio (1.0-2.1) Laboratory Results - last 24 hr 01/31/17 01/31/17 01/31/17 12:21 12:23 17:40 WBC RBC Hgb Hct MCV MCH MCHC RDW Plt Count MPV Neut % (Auto) Lymph % (Auto) [place] % (Auto) Eos % (Auto) Baso % (Auto) Neut # Lymph # [place] # Eos # Baso # PT INR APTT Puncture Site pCO2 pO2 HCO3 ABG pH ABG Total CO2 ABG O2 Saturation ABG Base Excess ABG Hemoglobin ABG Carboxyhemoglobin POC ABG HHb (Measured) ABG Methemoglobin Singh Test A-a O2 Difference Respiratory Index Hgb O2 Saturation Vent Mode Mechanical Rate FiO2 Tidal Volume PEEP Sodium Potassium Chloride Carbon Dioxide Anion Gap BUN Creatinine Est GFR ( Amer) Est GFR (Non-Af Amer) POC Glucose (mg/dL) 69 75 113 H Random Glucose Calcium Phosphorus Magnesium Total Bilirubin AST ALT Alkaline Phosphatase Total Protein Albumin Globulin Albumin/Globulin Ratio 01/31/17 02/01/17 02/01/17 23:48 05:17 06:06 WBC RBC Hgb Hct MCV MCH MCHC RDW Plt Count MPV Neut % (Auto) Lymph % (Auto) [place] % (Auto) Eos % (Auto) Baso % (Auto) Neut # Lymph # [place] # Eos # Baso # PT INR APTT Puncture Site L bra pCO2 41 pO2 157 H HCO3 28.1 H ABG pH 7.45 ABG Total CO2 29.8 H ABG O2 Saturation 99.1 H ABG Base Excess 4.1 H ABG Hemoglobin 8.2 L ABG Carboxyhemoglobin 1.7 H POC ABG HHb (Measured) 0.9 ABG Methemoglobin 0.9 Singh Test Na A-a O2 Difference 77.0 Respiratory Index 0.5 Hgb O2 Saturation 96.5 Vent Mode Prvc Mechanical Rate 12 FiO2 40.0 Tidal Volume 400 PEEP 5 Sodium Potassium Chloride Carbon Dioxide Anion Gap BUN Creatinine Est GFR ( Amer) Est GFR (Non-Af Amer) POC Glucose (mg/dL) 188 H 146 H Random Glucose Calcium Phosphorus Magnesium Total Bilirubin AST ALT Alkaline Phosphatase Total Protein Albumin Globulin Albumin/Globulin Ratio 02/01/17 02/01/1717 06:24 06:25 06:25 WBC 5.1 RBC 3.12 L Hgb 8.3 L Hct 25.1 L MCV 80.5 L MCH 26.6 L MCHC 33.0 RDW 15.2 H Plt Count 211 MPV 8.3 Neut % (Auto) 54.9 Lymph % (Auto) 31.1 [place] % (Auto) 9.0 Eos % (Auto) 4.0 Baso % (Auto) 1.0 Neut # 2.8 Lymph # 1.6 [place] # 0.5 Eos # 0.2 Baso # 0.0 PT 11.7 INR 1.0 APTT 36 H Puncture Site pCO2 pO2 HCO3 ABG pH ABG Total CO2 ABG O2 Saturation ABG Base Excess ABG Hemoglobin ABG Carboxyhemoglobin POC ABG HHb (Measured) ABG Methemoglobin Singh Test A-a O2 Difference Respiratory Index Hgb O2 Saturation Vent Mode Mechanical Rate FiO2 Tidal Volume PEEP Sodium 134 Potassium 4.4 Chloride 102 Carbon Dioxide 27 Anion Gap 9 L BUN 20 H Creatinine 0.4 L Est GFR ( Amer) > 60 Est GFR (Non-Af Amer) > 60 POC Glucose (mg/dL) Random Glucose 151 H Calcium 7.9 L Phosphorus 3.2 Magnesium 2.0 Total Bilirubin 0.3 AST 26 ALT 29 Alkaline Phosphatase 141 H Total Protein 6.5 Albumin 2.9 L Globulin 3.6 Albumin/Globulin Ratio 0.8 L 02/01/17 11:36 WBC RBC Hgb Hct MCV MCH MCHC RDW Plt Count MPV Neut % (Auto) Lymph % (Auto) [place] % (Auto) Eos % (Auto) Baso % (Auto) Neut # Lymph # [place] # Eos # Baso # PT INR APTT Puncture Site pCO2 pO2 HCO3 ABG pH ABG Total CO2 ABG O2 Saturation ABG Base Excess ABG Hemoglobin ABG Carboxyhemoglobin POC ABG HHb (Measured) ABG Methemoglobin Singh Test A-a O2 Difference Respiratory Index Hgb O2 Saturation Vent Mode Mechanical Rate FiO2 Tidal Volume PEEP Sodium Potassium Chloride Carbon Dioxide Anion Gap BUN Creatinine Est GFR ( Amer) Est GFR (Non-Af Amer) POC Glucose (mg/dL) 163 H Random Glucose Calcium Phosphorus Magnesium Total Bilirubin AST ALT Alkaline Phosphatase Total Protein Albumin Globulin Albumin/Globulin Ratio Fingerstick Blood Sugar Results: 146 Assessment/Plan - Assessment and Plan (Free Text) Assessment: Patient is an 81 year old female presenting to the hospital with chest pain that needed to be intubated due to respiratory failure from hypercapnia. Patient was transferred to the ICU for further evaluation. Progress Note: Assessment Plan Neuro: History of Seizures: Keppra 750mg PO BID Sedation: Propofol 5mcg/kg/min Pain: Psych: history of Szhizophrenia Haldol 1mg Q12H Ativan 0.5mg Q6H PRN Cardio: 01/08 Echo: Grade I abnormal relaxation pattern. global hypokinesis, systolic function is mild to moderately reduced. Left atrium is mildly dilated. severe pulmonary HTN. mildly dilated left atrium, severe left ventricular dysfunction. EF 37% Cardio Consult: Dr. Crowell 01/25 BNP ASA 81mg POQD Enlapril 2.5mg POQD -increased to 5mg 01/26 Cardizem 30mg POQID Metoprolol tartrate 25mg POBID Enlapril 5mg POQD Pulm: 01/24 intubated 01/26 CXR: increased pleural effusions Vent Settings:450///50% 01/25 ABG: pH 7.53/ pO2 127/ pCO2 26/ pHCO3 25.2 01/26 ABG: pH 7.51/ pCO2 32/ pO2 108/ pHCO3 27.0 01/27/17 05:11 pH 7.49 35, 84, 27.5, Vent Settings CPAP 50% 21/06 01/27 CPAP trials today 01/28 daily CPAP trials 01/28 ABG: pH 7.44, pCO2 35, pO2 171, pHCO3 22.9, PRVC RR 12, PEEP 5, FiO2 50%, TV 400, 01/29 ABG: pH 7. 49, pCO2 35, pO2 77, pHCO3 27.6, PRVC RR 12, PEEP 5, FiO2 40%, TV 400 01/30 ABG: pH 7.43, pCO2 40, pO2 131, pHCO3 26.5, PRVC RR 12, PEEP 5, FiO2 40%, TV 400 01/31 ABG: pH 7.46, pCO2 39, pO2 132, pHCO3 27.7, PRVC RR 12, PEEP 5, FiO2 40%, TV 400 02/01 ABG: pH 7.45, pCO2 41, pO2 157, pHCO3 28.1, PRVC RR 12, PEEP 5, FiO2 40%, TV 400 01/26 CXR: increased pleural effusions Albuterol 1.25mg INH RQ6H SCOTTY Lasix 40mg IVP STAT Endo: Hypothyroid Diabetes Novolin hold Levothyroxine 25mcgPOQD Insulin SCQ6H low dose sliding scale ISS low dose q6h Glucerna 1.5 initiate 20cc/hr, increase by 5cc/hr, goal rate 35cc/hr GI: Tube Feeds: Glucerna 1.5 initiate 20cc/hr, increase by 5cc/hr, goal rate 35cc/ hr : n/a Renal: I/O: 1461.1/725 = 736.1 24 UOP 725cc/hr 01/25 repleted potassium Heme/Onc: Iron deficiency anemia 01/25 H/H: 10.0/29.9 01/26 H/H 9.7/29.0 01/27 H/H: 9.0/26.7 01/28 H/H: 8.7/25.7 01/29 9.0/26.7 01/30 01/31 02/01 8.3/25.1 Iron 10 TIBC 209 % 4.78 Ferrlecit 125mg IVPB QD MSK: n/a ID: 01/25 WBC 5.0 from 7.2 f/u AM CBC 01/30 ESR 90 Nystatin 1 top BID Tylenol 650mg POQ6H Azithromycin 500mg IVPB QD Prophylaxis: DVT: Lovenox 40mg SC QD GI: Protonix 40mg IVP QD Folic Acid 1mg PO daily Florastor 250mg PO BID discussed with Dr. Dominic Garcia DO PGY1 - Date & Time Date: 02/01/17 Time: 12:22 <Malachi Alfaro - Last Filed: 02/01/17 14:56> CCU Objective - Vital Signs / Intake & Output Vital Signs (Last 4 hours): Vital Signs Temp Pulse Resp BP Pulse Ox 02/01/17 13:00 85 29 H 100 02/01/17 12:24 80 25 H 123/61 100 02/01/17 12:00 97.9 F 02/01/17 11:00 79 25 H 99 Intake and Output (Last 8hrs): Intake & Output 01/31/17 02/01/17 02/01/17 22:59 06:59 14:59 Intake Total 490 833 9230 Output Total 450 Balance 788 954 0929 Weight 110 lb 7.225 oz Intake: Intake, IV Amount 400 200 860 Left Medial Port Internal 400 200 750 Jugular Left Proximal Port 110 Internal Jugular Tube Feeding 280 315 210 Other 200 100 100 Output: Urine 450 Urine, Voided 450 Other: # Voids Urine, Voided 1 # Bowel Movements 1 1 - Medications Active Medications: Active Medications Generic Name Dose Route Start Last Admin Trade Name Freq PRN Reason Stop Dose Admin Acetaminophen 650 mg 01/17/17 21:49 01/18/17 15:23 Tylenol 325mg Tab PO 650 mg Q6 PRN Administration Pain, moderate (4-7) Albuterol/Ipratropium 3 ml 01/31/17 20:00 02/01/17 07:40 Duoneb 3 Mg/0.5 Mg (3 Ml) Ud INH 3 ml RQ6 SCOTTY Administration Aspirin 81 mg 01/28/17 10:00 02/01/17 09:17 Aspirin Chewable PO 81 mg DAILY SCOTTY Administration Enalapril Maleate 5 mg 01/26/17 12:45 02/01/17 09:17 Vasotec PO 5 mg DAILY SCOTTY Administration Enoxaparin Sodium 40 mg 02/01/17 10:00 02/01/17 09:17 Lovenox SC 40 mg DAILY SCOTTY Administration Propofol 1,000 mg in 100 mls @ 1.388 mls/hr 01/24/17 10:00 01/29/17 06:08 Diprivan IV 21.61 mcg/kg/min .Q24H PRN 6 mls/hr TITRATE PER MD ORDER Administration Protocol 5 MCG/KG/MIN Levetiracetam 750 mg/ Sodium 107.5 mls @ 420 mls/hr 01/27/17 13:00 02/01/17 13:08 Chloride IVPB 420 mls/hr Q12H SCOTTY Administration Azithromycin 500 mg/ Sodium 250 mls @ 250 mls/hr 01/28/17 10:00 02/01/17 11: 28 Chloride IVPB 250 mls/hr DAILY SCOTTY Administration Ferric Sodium Gluconate 110 mls @ 110 mls/hr 01/29/17 11:00 02/01/17 12:09 Complex 125 mg/ Sodium IVPB 02/06/17 10:01 110 mls/hr Chloride DAILY SCOTTY Administration Linezolid 600 mg in 300 mls @ 200 mls/hr 01/29/17 22:00 02/01/17 09:20 Zyvox 600mg/300ml D5w IVPB 200 mls/hr Q12 SCOTTY Administration Aztreonam 1 gm/ Sodium 100 mls @ 100 mls/hr 01/31/17 10:00 02/01/17 09:18 Chloride IVPB 100 mls/hr Q8H SCOTTY Administration Insulin Aspart 0 unit 01/25/17 12:00 02/01/17 12:10 Novolog SC 1 unit Q6 SCOTTY Administration Protocol Insulin Glargine 20 unit 01/25/17 22:00 02/01/17 00:13 Lantus SC 20 u HS SCOTTY Administration Levothyroxine Sodium 25 mcg 01/18/17 06:30 02/01/17 06:01 Synthroid PO 25 mcg DAILY@0630 SCOTTY Administration Metoprolol Tartrate 25 mg 01/26/17 18:00 02/01/17 09:19 Lopressor PO 25 mg BID SCOTTY Administration Nystatin 1 applic 01/24/17 18:00 02/01/17 09:19 Nystop Topical Powder TOP 1 applic BID SCOTTY Administration Pantoprazole Sodium 40 mg 01/19/17 10:00 02/01/17 09:18 Protonix Inj IVP 40 mg DAILY SCOTTY Administration Rosuvastatin Calcium 20 mg 01/18/17 22:00 01/31/17 21:48 Crestor PO 20 mg HS SCOTTY Administration Saccharomyces Boulardii 250 mg 01/18/17 18:00 02/01/17 09:18 Florastor PO 250 mg BID SCOTTY Administration Spironolactone 12.5 mg 01/20/17 18:00 02/01/17 09:18 Aldactone PO 12.5 mg BID SCOTTY Administration - Patient Studies Lab Studies: Microbiology Studies 01/29/17 Unknown Gram Stain - Final Trachasp Sputum Culture - Final NORMAL ORAL DANIEL 01/29/17 21:00 Blood Culture - Preliminary Blood-Thru [facility] NO GROWTH AFTER 48 HOURS 01/29/17 21:00 Blood Culture - Preliminary Blood-Thru [facility] NO GROWTH AFTER 48 HOURS Lab Studies 12/26/17 12/26/17 12/26/17 Range/Units 11:36 06:25 06:25 WBC (4.8-10.8) K/uL RBC (3.80-5.20) Mil/uL Hgb (11.0-16.0) g/dL Hct (34.0-47.0) % MCV (81.0-99.0) fL MCH (27.0-31.0) pg MCHC (33.0-37.0) g/dL RDW (11.5-14.5) % Plt Count (130-400) K/uL MPV (7.2-11.7) fL Neut % (Auto) (50.0-75.0) % Lymph % (Auto) (20.0-40.0) % [place] % (Auto) (0.0-10.0) % Eos % (Auto) (0.0-4.0) % Baso % (Auto) (0.0-2.0) % Neut # (1.8-7.0) K/uL Lymph # (1.0-4.3) K/uL [place] # (0.0-0.8) K/uL Eos # (0.0-0.7) K/uL Baso # (0.0-0.2) K/uL PT 11.7 (9.7-12.2) SECONDS INR 1.0 APTT 36 H (21-34) SECONDS Puncture Site pCO2 (35-45) mm/Hg pO2 (80-100) mm/Hg HCO3 (21-28) mmol/L ABG pH (7.35-7.45) ABG Total CO2 (22-28) mmol/L ABG O2 Saturation (95-98) % ABG Base Excess (-2.0-3.0) mmol/L ABG Hemoglobin (11.7-17.4) g/dL ABG Carboxyhemoglobin (0.5-1.5) % POC ABG HHb (Measured) (0.0-5.0) % ABG Methemoglobin (0.0-3.0) % Singh Test A-a O2 Difference mm/Hg Respiratory Index Hgb O2 Saturation (95.0-98.0) % Vent Mode Mechanical Rate FiO2 % Tidal Volume PEEP Sodium 134 (132-148) mmol/L Potassium 4.4 (3.6-5.2) mmol/L Chloride 102 (98-107) mmol/L Carbon Dioxide 27 (22-30) mmol/L Anion Gap 9 L (10-20) BUN 20 H (7-17) mg/dL Creatinine 0.4 L (0.7-1.2) mg/dL Est GFR ( Amer) > 60 Est GFR (Non-Af Amer) > 60 POC Glucose (mg/dL) 163 H (65-110) mg/dL Random Glucose 151 H (65-105) mg/dL Calcium 7.9 L (8.6-10.4) mg/dl Phosphorus 3.2 (2.5-4.5) mg/dL Magnesium 2.0 (1.6-2.3) mg/dL Total Bilirubin 0.3 (0.2-1.3) mg/dL AST 26 (14-36) U/L ALT 29 (9-52) U/L Alkaline Phosphatase 141 H (38-126) U/L Total Protein 6.5 (6.3-8.3) g/dL Albumin 2.9 L (3.5-5.0) g/dL Globulin 3.6 (2.2-3.9) gm/dL Albumin/Globulin Ratio 0.8 L (1.0-2.1) 02/01/17 02/01/17 02/01/17 Range/Units 06:24 06:06 05:17 WBC 5.1 (4.8-10.8) K/uL RBC 3.12 L (3.80-5.20) Mil/uL Hgb 8.3 L (11.0-16.0) g/dL Hct 25.1 L (34.0-47.0) % MCV 80.5 L (81.0-99.0) fL MCH 26.6 L (27.0-31.0) pg MCHC 33.0 (33.0-37.0) g/dL RDW 15.2 H (11.5-14.5) % Plt Count 211 (130-400) K/uL MPV 8.3 (7.2-11.7) fL Neut % (Auto) 54.9 (50.0-75.0) % Lymph % (Auto) 31.1 (20.0-40.0) % [place] % (Auto) 9.0 (0.0-10.0) % Eos % (Auto) 4.0 (0.0-4.0) % Baso % (Auto) 1.0 (0.0-2.0) % Neut # 2.8 (1.8-7.0) K/uL Lymph # 1.6 (1.0-4.3) K/uL [place] # 0.5 (0.0-0.8) K/uL Eos # 0.2 (0.0-0.7) K/uL Baso # 0.0 (0.0-0.2) K/uL PT (9.7-12.2) SECONDS INR APTT (21-34) SECONDS Puncture Site L bra pCO2 41 (35-45) mm/Hg pO2 157 H (80-100) mm/Hg HCO3 28.1 H (21-28) mmol/L ABG pH 7.45 (7.35-7.45) ABG Total CO2 29.8 H (22-28) mmol/L ABG O2 Saturation 99.1 H (95-98) % ABG Base Excess 4.1 H (-2.0-3.0) mmol/L ABG Hemoglobin 8.2 L (11.7-17.4) g/dL ABG Carboxyhemoglobin 1.7 H (0.5-1.5) % POC ABG HHb (Measured) 0.9 (0.0-5.0) % ABG Methemoglobin 0.9 (0.0-3.0) % Singh Test Na A-a O2 Difference 77.0 mm/Hg Respiratory Index 0.5 Hgb O2 Saturation 96.5 (95.0-98.0) % Vent Mode Prvc Mechanical Rate 12 FiO2 40.0 % Tidal Volume 400 PEEP 5 Sodium (132-148) mmol/L Potassium (3.6-5.2) mmol/L Chloride (98-107) mmol/L Carbon Dioxide (22-30) mmol/L Anion Gap (10-20) BUN (7-17) mg/dL Creatinine (0.7-1.2) mg/dL Est GFR ( Amer) Est GFR (Non-Af Amer) POC Glucose (mg/dL) 146 H (65-110) mg/dL Random Glucose (65-105) mg/dL Calcium (8.6-10.4) mg/dl Phosphorus (2.5-4.5) mg/dL Magnesium (1.6-2.3) mg/dL Total Bilirubin (0.2-1.3) mg/dL AST (14-36) U/L ALT (9-52) U/L Alkaline Phosphatase (38-126) U/L Total Protein (6.3-8.3) g/dL Albumin (3.5-5.0) g/dL Globulin (2.2-3.9) gm/dL Albumin/Globulin Ratio (1.0-2.1) 01/31/17 01/31/17 Range/Units 23:48 17:40 WBC (4.8-10.8) K/uL RBC (3.80-5.20) Mil/uL Hgb (11.0-16.0) g/dL Hct (34.0-47.0) % MCV (81.0-99.0) fL MCH (27.0-31.0) pg MCHC (33.0-37.0) g/dL RDW (11.5-14.5) % Plt Count (130-400) K/uL MPV (7.2-11.7) fL Neut % (Auto) (50.0-75.0) % Lymph % (Auto) (20.0-40.0) % [place] % (Auto) (0.0-10.0) % Eos % (Auto) (0.0-4.0) % Baso % (Auto) (0.0-2.0) % Neut # (1.8-7.0) K/uL Lymph # (1.0-4.3) K/uL [place] # (0.0-0.8) K/uL Eos # (0.0-0.7) K/uL Baso # (0.0-0.2) K/uL PT (9.7-12.2) SECONDS INR APTT (21-34) SECONDS Puncture Site pCO2 (35-45) mm/Hg pO2 (80-100) mm/Hg HCO3 (21-28) mmol/L ABG pH (7.35-7.45) ABG Total CO2 (22-28) mmol/L ABG O2 Saturation (95-98) % ABG Base Excess (-2.0-3.0) mmol/L ABG Hemoglobin (11.7-17.4) g/dL ABG Carboxyhemoglobin (0.5-1.5) % POC ABG HHb (Measured) (0.0-5.0) % ABG Methemoglobin (0.0-3.0) % Singh Test A-a O2 Difference mm/Hg Respiratory Index Hgb O2 Saturation (95.0-98.0) % Vent Mode Mechanical Rate FiO2 % Tidal Volume PEEP Sodium (132-148) mmol/L Potassium (3.6-5.2) mmol/L Chloride (98-107) mmol/L Carbon Dioxide (22-30) mmol/L Anion Gap (10-20) BUN (7-17) mg/dL Creatinine (0.7-1.2) mg/dL Est GFR ( Amer) Est GFR (Non-Af Amer) POC Glucose (mg/dL) 188 H 113 H (65-110) mg/dL Random Glucose (65-105) mg/dL Calcium (8.6-10.4) mg/dl Phosphorus (2.5-4.5) mg/dL Magnesium (1.6-2.3) mg/dL Total Bilirubin (0.2-1.3) mg/dL AST (14-36) U/L ALT (9-52) U/L Alkaline Phosphatase (38-126) U/L Total Protein (6.3-8.3) g/dL Albumin (3.5-5.0) g/dL Globulin (2.2-3.9) gm/dL Albumin/Globulin Ratio (1.0-2.1) Laboratory Results - last 24 hr 01/31/17 01/31/17 02/01/17 17:40 23:48 05:17 WBC RBC Hgb Hct MCV MCH MCHC RDW Plt Count MPV Neut % (Auto) Lymph % (Auto) [place] % (Auto) Eos % (Auto) Baso % (Auto) Neut # Lymph # [place] # Eos # Baso # PT INR APTT Puncture Site pCO2 pO2 HCO3 ABG pH ABG Total CO2 ABG O2 Saturation ABG Base Excess ABG Hemoglobin ABG Carboxyhemoglobin POC ABG HHb (Measured) ABG Methemoglobin Singh Test A-a O2 Difference Respiratory Index Hgb O2 Saturation Vent Mode Mechanical Rate FiO2 Tidal Volume PEEP Sodium Potassium Chloride Carbon Dioxide Anion Gap BUN Creatinine Est GFR ( Amer) Est GFR (Non-Af Amer) POC Glucose (mg/dL) 113 H 188 H 146 H Random Glucose Calcium Phosphorus Magnesium Total Bilirubin AST ALT Alkaline Phosphatase Total Protein Albumin Globulin Albumin/Globulin Ratio 02/01/17 02/01/17 02/01/17 06:06 06:24 06:25 WBC 5.1 RBC 3.12 L Hgb 8.3 L Hct 25.1 L MCV 80.5 L MCH 26.6 L MCHC 33.0 RDW 15.2 H Plt Count 211 MPV 8.3 Neut % (Auto) 54.9 Lymph % (Auto) 31.1 [place] % (Auto) 9.0 Eos % (Auto) 4.0 Baso % (Auto) 1.0 Neut # 2.8 Lymph # 1.6 [place] # 0.5 Eos # 0.2 Baso # 0.0 PT INR APTT Puncture Site L bra pCO2 41 pO2 157 H HCO3 28.1 H ABG pH 7.45 ABG Total CO2 29.8 H ABG O2 Saturation 99.1 H ABG Base Excess 4.1 H ABG Hemoglobin 8.2 L ABG Carboxyhemoglobin 1.7 H POC ABG HHb (Measured) 0.9 ABG Methemoglobin 0.9 Singh Test Na A-a O2 Difference 77.0 Respiratory Index 0.5 Hgb O2 Saturation 96.5 Vent Mode Prvc Mechanical Rate 12 FiO2 40.0 Tidal Volume 400 PEEP 5 Sodium 134 Potassium 4.4 Chloride 102 Carbon Dioxide 27 Anion Gap 9 L BUN 20 H Creatinine 0.4 L Est GFR ( Amer) > 60 Est GFR (Non-Af Amer) > 60 POC Glucose (mg/dL) Random Glucose 151 H Calcium 7.9 L Phosphorus 3.2 Magnesium 2.0 Total Bilirubin 0.3 AST 26 ALT 29 Alkaline Phosphatase 141 H Total Protein 6.5 Albumin 2.9 L Globulin 3.6 Albumin/Globulin Ratio 0.8 L 02/01/17 02/01/17 06:25 11:36 WBC RBC Hgb Hct MCV MCH MCHC RDW Plt Count MPV Neut % (Auto) Lymph % (Auto) [place] % (Auto) Eos % (Auto) Baso % (Auto) Neut # Lymph # [place] # Eos # Baso # PT 11.7 INR 1.0 APTT 36 H Puncture Site pCO2 pO2 HCO3 ABG pH ABG Total CO2 ABG O2 Saturation ABG Base Excess ABG Hemoglobin ABG Carboxyhemoglobin POC ABG HHb (Measured) ABG Methemoglobin Singh Test A-a O2 Difference Respiratory Index Hgb O2 Saturation Vent Mode Mechanical Rate FiO2 Tidal Volume PEEP Sodium Potassium Chloride Carbon Dioxide Anion Gap BUN Creatinine Est GFR ( Amer) Est GFR (Non-Af Amer) POC Glucose (mg/dL) 163 H Random Glucose Calcium Phosphorus Magnesium Total Bilirubin AST ALT Alkaline Phosphatase Total Protein Albumin Globulin Albumin/Globulin Ratio Assessment/Plan (1) Respiratory failure Current Visit: Yes Status: Acute (2) Pneumonia Current Visit: Yes Status: Acute Attending/Attestation - Attestation I have personally seen and examined this patient.: Yes I have fully participated in the care of the patient.: Yes I have reviewed all pertinent clinical information: Yes Notes (Text): 02/01/17 14:54 patient seen and examinedin the intensive care unit. Case discussed with house staffin the morning rounds. Patient self extubated and reintubated after she was found to be in respiratory distress Surgical evaluation for tracheostomy and PEG insertion Continue antibiotics Continue feeding
--- NOTE | 2017-02-01 14:27 | PCM.PROC ---
Procedures Attestation:: I certify that I have explained the specified Operation(s) or Procedure(s), risks, benefits and reasonable alternatives to the Patient and/or other person responsible. The opportunity was given to ask questions and all questions answered - Intubation Time Out Performed: Yes Sedative: Etomidate Laryngoscope: Susy ET Tube Size: 7.0 ET Tube Placement Confirmation: Confirmation w/Capnometry Procedure Immediate Complications: Difficult Intubation (anterior vocal cords)
[2017-02-01] MEDS: Propofol 10 mg/ml 1,000 MG/100 ML VIAL IV PRN ×2 (14:35→21:00)
--- NOTE | 2017-02-01 14:39 | CP.PCM.PN ---
Subjective - Date & Time of Evaluation Date of Evaluation: 02/01/17 Time of Evaluation: 14:39 - Subjective Subjective: patient seen in ICU. Afebrile More awake .On CPAP trials. Surgery consult for trach noted. Objective - Vital Signs/Intake and Output Vital Signs (last 24 hours): Temp Pulse Resp BP Pulse Ox 97.9 F 85 29 H 123/61 100 02/01/17 12:00 02/01/17 13:00 02/01/17 13:00 02/01/17 12:24 02/01/17 13:00 Intake and Output: 02/01/17 02/01/17 06:59 18:59 Intake Total 1155 1170 Output Total 200 Balance 955 1170 - Medications Medications: Current Medications Acetaminophen (Tylenol 325mg Tab) 650 mg PO Q6 PRN PRN Reason: Pain, moderate (4-7) Last Admin: 01/18/17 15:23 Dose: 650 mg Albuterol/Ipratropium (Duoneb 3 Mg/0.5 Mg (3 Ml) Ud) 3 ml INH RQ6 [facility] Last Admin: 02/01/17 07:40 Dose: 3 ml Aspirin (Aspirin Chewable) 81 mg PO DAILY [facility] Last Admin: 02/01/17 09:17 Dose: 81 mg Enalapril Maleate (Vasotec) 5 mg PO DAILY [facility] Last Admin: 02/01/17 09:17 Dose: 5 mg Enoxaparin Sodium (Lovenox) 40 mg SC DAILY [facility] Last Admin: 02/01/17 09:17 Dose: 40 mg Propofol (Diprivan) 1,000 mg in 100 mls @ 1.388 mls/hr IV .Q24H PRN; Protocol; 5 MCG/KG/MIN PRN Reason: TITRATE PER MD ORDER Last Admin: 01/29/17 06:08 Dose: 21.61 mcg/kg/min, 6 mls/hr Levetiracetam 750 mg/ Sodium (Chloride) 107.5 mls @ 420 mls/hr IVPB Q12H [facility] Last Admin: 02/01/17 13:08 Dose: 420 mls/hr Azithromycin 500 mg/ Sodium (Chloride) 250 mls @ 250 mls/hr IVPB DAILY [facility] Last Admin: 02/01/17 11:28 Dose: 250 mls/hr Ferric Sodium Gluconate Complex 125 mg/ Sodium Chloride 110 mls @ 110 mls/hr IVPB DAILY [facility] Stop: 02/06/17 10:01 Last Admin: 02/01/17 12:09 Dose: 110 mls/hr Linezolid (Zyvox 600mg/300ml D5w) 600 mg in 300 mls @ 200 mls/hr IVPB Q12 [facility] Last Admin: 02/01/17 09:20 Dose: 200 mls/hr Aztreonam 1 gm/ Sodium (Chloride) 100 mls @ 100 mls/hr IVPB Q8H [facility] Last Admin: 02/01/17 09:18 Dose: 100 mls/hr Insulin Aspart (Novolog) 0 unit SC Q6 [facility] PRN Reason: Protocol Last Admin: 02/01/17 12:10 Dose: 1 unit Insulin Glargine (Lantus) 20 unit SC [facility] Last Admin: 02/01/17 00:13 Dose: 20 u Levothyroxine Sodium (Synthroid) 25 mcg PO DAILY@0630 [facility] Last Admin: 02/01/17 06:01 Dose: 25 mcg Metoprolol Tartrate (Lopressor) 25 mg PO BID [facility] Last Admin: 02/01/17 09:19 Dose: 25 mg Nystatin (Nystop Topical Powder) 1 applic TOP BID [facility] Last Admin: 02/01/17 09:19 Dose: 1 applic Pantoprazole Sodium (Protonix Inj) 40 mg IVP DAILY [facility] Last Admin: 02/01/17 09:18 Dose: 40 mg Rosuvastatin Calcium (Crestor) 20 mg PO [facility] Last Admin: 01/31/17 21:48 Dose: 20 mg Saccharomyces Boulardii (Florastor) 250 mg PO BID [facility] Last Admin: 02/01/17 09:18 Dose: 250 mg Spironolactone (Aldactone) 12.5 mg PO BID [facility] Last Admin: 02/01/17 09:18 Dose: 12.5 mg - Labs Labs: 02/01/17 06:24 02/01/17 06:25 PT 11.7 SECONDS (9.7-12.2) 02/01/17 06:25 INR 1.0 02/01/17 06:25 APTT 36 SECONDS (21-34) H 02/01/17 06:25 - Constitutional Appears: No Acute Distress, Cachectic, Chronically Ill - Head Exam Head Exam: NORMAL INSPECTION - Eye Exam Eye Exam: EOMI, PERRL - ENT Exam ENT Exam: Normal Oropharynx - Neck Exam Neck Exam: Normal Inspection - Respiratory Exam Respiratory Exam: Decreased Breath Sounds - Cardiovascular Exam Cardiovascular Exam: Irregular Rhythm, +S1, +S2 - GI/Abdominal Exam GI & Abdominal Exam: Soft, Normal Bowel Sounds - Extremities Exam Extremities Exam: absent: Calf Tenderness, Pedal Edema Additional comments: bilateral Venodyne - Neurological Exam Neurological Exam: Awake, CN II-XII Intact, Oriented x3 - Psychiatric Exam Psychiatric exam: Normal Mood - Skin Skin Exam: Warm Assessment and Plan (1) Sepsis Assessment & Plan: ON IV ZYVOX 600MG IV Q 12HRLY. 01/29/17. CONTINUE IV AZACTAM DECREASE DOSE 1GM IV Q 8HRLY. 01/18/17 CONTINUE IV AZITHROMAX 500MG I QD DAILY .01/24/17 WATCH H/H AND PLT. REPEAT BLOOD CULTURES 01/29/17 -VE to date. Status: Acute (2) Respiratory failure Assessment & Plan: patient on trials for extubation. On CPAP. If unable to tolerate extubation, will need tracheostomy. Surgery on the case for further evaluation. Chest x-ray repeat 02/01/17 chronic peripheral vascular congestion, mild cardiomegaly. No acute infiltrates. Status: Acute (3) Pneumonia Assessment & Plan: pulmonary toilet. Trial of CPAP for weaning.. Status: Acute (4) Hypertension Status: Chronic (5) UTI (urinary tract infection) due to Enterococcus Assessment & Plan: patient has a VRE in the urine .ON zYVOX 600 MG iv EVERY 12 HOURLY .fOLLOW-UP REPEAT ua URINE CULTURES IN A.M. Status: Acute
--- NOTE | 2017-02-01 14:59 | RAD ---
HISTORY: confirm ET placement COMPARISON: 02/01/2017 at 0822 hour FINDINGS: LUNGS: Background chronic appearing pulmonary venous congestion and chronic appearing interstitial lung disease suggested. The prior lateral right oral thickening now blends with patchy opacities some linear. Interval increasing atelectasis and or interval developing patchy infiltrate right mid lung zone possible. Study slightly rotated more towards the right than before PLEURA: No significant pleural effusion identified, no pneumothorax apparent. CARDIOVASCULAR: Mild cardiomegaly chronic pulmonary venous congestion re- suggested. Some greater confluence in mid right lung zone bordering old healed right rib fractures possible. Developing patchy coalescent infiltrate here also a consideration. OSSEOUS STRUCTURES: Thoracic spondylosis generalized osteopenia, old right mid lung zone rib fractures. Deformity of right proximal humerus consistent with old trauma as before VISUALIZED UPPER ABDOMEN: Normal. OTHER FINDINGS: Endotracheal tube tip less than 9 mm from the iwona. A left internal jugular vein catheter with tip in superior vena cava as before. Endotracheal tube appears to have been removed. IMPRESSION: Interval increase opacity mid right lung zone -increasing coalescent pulmonary edema, increasing coalescent pulmonary infiltrate with or without subsegmental atelectatic changes here are all considerations. These findings are consistent with a background of chronic pulmonary venous congestion and chronic interstitial lung disease. Interval NG tube removal. The endotracheal tube tip is approximately 9 mm or less from the iwona recommend retraction between 1 and 2 cm. These findings and recommendations were called up to the nurse's station an given to the nurseRita, taking care the patient at 2:54 p.m. on February 01, 2017
[2017-02-01] MEDS ORDERED: Etomidate 20 mg/10ml Inj IV ONE (15:00)
--- NOTE | 2017-02-01 20:36 | PN ---
DATE: SUBJECTIVE: Patient is still on a ventilator. No reported ventricular arrhythmia or hypotension. PHYSICAL EXAMINATION: VITAL SIGNS: Blood pressure 128/64, heart rate 98, respirations 15, temperature 97.9. HEENT: Pale conjunctivae. CHEST: Bilateral rhonchi. HEART: S1 and S2, regular. EXTREMITIES: Severe contraction. LABORATORY DATA: Hemoglobin and hematocrit 8.3 and 25.1, white count and platelet count are within normal limits. SMA-7; sodium 134, potassium 4.4, chloride 102, CO2 of 27, glucose 151, BUN 20, creatinine 0.4. Today's chest x-ray; interval increase in opacity in mid right lung zone, increase in coalescent pulmonary edema, increase in coalescent pulmonary infiltrate with or without subsegmental atelectatic changes. These findings are consistent with background of chronic pulmonary venous congestion and chronic interstitial lung disease. ASSESSMENT: 1. Congestive heart failure. 2. Pneumonia. 3. Respiratory failure. 4. Chronic obstructive lung disease. 5. History of supraventricular tachycardia. 6. Anemia. 7. Urinary tract infection. RECOMMENDATIONS: Continue IV Azactam at 1 g q. 8 hours. Continue Crestor 20 mg once a day, Lopressor 25 mg twice a day, Lovenox 40 mg subcutaneously once a day, Vasotec 5 mg once a day, and Zyvox was started today at 600 mg intravenously q. 12 hours. Florian Crowell MD
--- NOTE | 2017-02-01 23:03 | CP.PCM.PN ---
Subjective - Date & Time of Evaluation Date of Evaluation: 02/01/17 Time of Evaluation: 21:00 - Subjective Subjective: pt seen and examined, is improving, she is more awake on ventilator, vitals are stable Objective - Vital Signs/Intake and Output Vital Signs (last 24 hours): Temp Pulse Resp BP Pulse Ox 97.9 F 80 15 131/67 100 02/01/17 20:00 02/01/17 20:00 02/01/17 20:00 02/01/17 20:00 02/01/17 20:00 Intake and Output: 02/01/17 02/02/17 18:59 06:59 Intake Total 1570 229 Balance 1570 229 - Medications Medications: Current Medications Acetaminophen (Tylenol 325mg Tab) 650 mg PO Q6 PRN PRN Reason: Pain, moderate (4-7) Last Admin: 01/18/17 15:23 Dose: 650 mg Albuterol/Ipratropium (Duoneb 3 Mg/0.5 Mg (3 Ml) Ud) 3 ml INH RQ6 [facility] Last Admin: 02/01/17 20:28 Dose: 3 ml Aspirin (Aspirin Chewable) 81 mg PO DAILY [facility] Last Admin: 02/01/17 09:17 Dose: 81 mg Enalapril Maleate (Vasotec) 5 mg PO DAILY [facility] Last Admin: 02/01/17 09:17 Dose: 5 mg Enoxaparin Sodium (Lovenox) 40 mg SC DAILY [facility] Last Admin: 02/01/17 09:17 Dose: 40 mg Propofol (Diprivan) 1,000 mg in 100 mls @ 1.388 mls/hr IV .Q24H PRN; Protocol; 5 MCG/KG/MIN PRN Reason: TITRATE PER MD ORDER Last Admin: 02/01/17 21:00 Dose: 43.22 mcg/kg/min, 12 mls/hr Levetiracetam 750 mg/ Sodium (Chloride) 107.5 mls @ 420 mls/hr IVPB Q12H [facility] Last Admin: 02/01/17 13:08 Dose: 420 mls/hr Azithromycin 500 mg/ Sodium (Chloride) 250 mls @ 250 mls/hr IVPB DAILY [facility] Last Admin: 02/01/17 11:28 Dose: 250 mls/hr Ferric Sodium Gluconate Complex 125 mg/ Sodium Chloride 110 mls @ 110 mls/hr IVPB DAILY [facility] Stop: 02/06/17 10:01 Last Admin: 02/01/17 12:09 Dose: 110 mls/hr Linezolid (Zyvox 600mg/300ml D5w) 600 mg in 300 mls @ 200 mls/hr IVPB Q12 [facility] Last Admin: 02/01/17 22:16 Dose: 200 mls/hr Aztreonam 1 gm/ Sodium (Chloride) 100 mls @ 100 mls/hr IVPB Q8H [facility] Last Admin: 02/01/17 17:28 Dose: 100 mls/hr Insulin Aspart (Novolog) 0 unit SC Q6 [facility] PRN Reason: Protocol Last Admin: 02/01/17 17:34 Dose: Not Given Insulin Glargine (Lantus) 20 unit SC HS [facility] Last Admin: 02/01/17 22:30 Dose: Not Given Levothyroxine Sodium (Synthroid) 25 mcg PO DAILY@0630 [facility] Last Admin: 02/01/17 06:01 Dose: 25 mcg Metoprolol Tartrate (Lopressor) 25 mg PO BID [facility] Last Admin: 02/01/17 17:33 Dose: 25 mg Nystatin (Nystop Topical Powder) 1 applic TOP BID [facility] Last Admin: 02/01/17 17:28 Dose: 1 applic Pantoprazole Sodium (Protonix Inj) 40 mg IVP DAILY [facility] Last Admin: 02/01/17 09:18 Dose: 40 mg Rosuvastatin Calcium (Crestor) 20 mg PO HS [facility] Last Admin: 02/01/17 22:14 Dose: 20 mg Saccharomyces Boulardii (Florastor) 250 mg PO BID [facility] Last Admin: 02/01/17 17:28 Dose: 250 mg Spironolactone (Aldactone) 12.5 mg PO BID [facility] Last Admin: 02/01/17 17:27 Dose: 12.5 mg - Labs Labs: 02/01/17 06:24 02/01/17 06:25 PT 11.7 SECONDS (9.7-12.2) 02/01/17 06:25 INR 1.0 02/01/17 06:25 APTT 36 SECONDS (21-34) H 02/01/17 06:25 - Constitutional Appears: No Acute Distress, Chronically Ill - Eye Exam Eye Exam: EOMI, Normal appearance, PERRL Pupil Exam: NORMAL ACCOMODATION, PERRL - Respiratory Exam Respiratory Exam: Decreased Breath Sounds, Rales, Rhonchi - Cardiovascular Exam Cardiovascular Exam: REGULAR RHYTHM, +S1, +S2. absent: Murmur - Neurological Exam Neurological Exam: Alert Assessment and Plan (1) Respiratory failure Assessment & Plan: on ventilator support attempt weaning Status: Acute (2) Seizure disorder Status: Acute (3) Uncontrolled blood glucose Status: Acute (4) Systolic CHF Status: Acute
[2017-02-02] MEDS: Albuterol-Ipratrop 3 mg / 0.5 (3 ml) UD INH SCH ×4 (01:39→19:57)
[2017-02-02] MEDS: Aztreonam 1 GM in Sodium Chloride 0.9% 100 ML IVPB SCH ×3 (02:00→17:59)
[2017-02-02] MEDS: Propofol 10 mg/ml 1,000 MG/100 ML VIAL IV PRN ×2 (05:20→14:27)
[2017-02-02 06:27] LABS: ABG ALLEN TEST POS; ARTERIAL BLOOD GAS HCO3 27.3 mmol/L (21-28); ARTERIAL BLOOD GAS HEMOGLOBIN 8.1 g/dL (11.7-17.4); ARTERIAL BLOOD GAS PCO2 38 mm/Hg (35-45); ARTERIAL BLOOD GAS PH 7.46 (7.35-7.45); ARTERIAL BLOOD GAS PO2 147 mm/Hg (80-100); ARTERIAL BLOOD GAS TCO2 28.2 mmol/L (22-28)
[2017-02-02 06:31] LABS: BASO # 0.1 K/uL (0.0-0.2); BASO % 1.3 % (0.0-2.0); EOS # 0.2 K/uL (0.0-0.7); EOS % 4.1 % (0.0-4.0); HEMOGLOBIN 7.8 g/dL (11.0-16.0); LYMPH # 1.3 K/uL (1.0-4.3); LYMPH % 32.2 % (20.0-40.0); MEAN CELL VOLUME 81.3 fL (81.0-99.0); MEAN CORPUSCULAR HEMOGLOBIN 26.6 pg (27.0-31.0); MEAN CORPUSCULAR HGB CONC 32.7 g/dL (33.0-37.0); MEAN PLATELET VOLUME 8.1 fL (7.2-11.7); MONO # 0.4 K/uL (0.0-0.8); MONO % 8.9 % (0.0-10.0); NEUT # 2.2 K/uL (1.8-7.0); NEUT % 53.5 % (50.0-75.0); RBC 2.92 Mil/uL (3.80-5.20); RED CELL DISTRIBUTION WIDTH 15.1 % (11.5-14.5)
[2017-02-02] MEDS: (Novolog) Insulin Aspart, Recombinant 100 u/ml 10 ml vial SC SCH ×4 (06:32→18:05)
[2017-02-02] MEDS: Levothyroxine 25 MCG TAB PO SCH (06:41)
[2017-02-02 06:48] LABS: BLOOD UREA NITROGEN 17 mg/dL (7-17); CALCIUM 7.7 mg/dl (8.6-10.4); GFR AFRICAN-AMERICAN > 60; GFR NON-AFRICAN AMERICAN > 60
[2017-02-02] MEDS: Saccharomyces Boulardi 250 mg Cap PO SCH ×2 (10:19→18:04)
[2017-02-02] MEDS: Enoxaparin 40 mg Syringe SC SCH (10:20)
--- NOTE | 2017-02-02 10:51 | RAD ---
HISTORY: Follow up Pneumonia andARDs picture COMPARISON: Portable chest 02/01/2017. FINDINGS: Endotracheal tube and left central venous line are unchanged in position. Nasogastric tube is in placed in the interval directed into left upper quadrant abdomen with the tip off the inferior margins of the image. LUNGS: Right perihilar/ mid lung zone and left basilar airspace disease persists, appearing unchanged. PLEURA: Borderline right pleural effusion. None is seen the left. No pneumothorax bilaterally. CARDIOVASCULAR: Cardiac silhouette does not appear simply changed. No definite pulmonary vascular derangement. OSSEOUS STRUCTURES: No significant abnormalities. VISUALIZED UPPER ABDOMEN: Normal. OTHER FINDINGS: None. IMPRESSION: Interval nasogastric tube placement with tip off the image but directed into left upper quadrant abdomen. ET tube and left central venous line are unchanged in position. Persistent right perihilar/mid lung zone and left basilar airspace disease again evident. Interval trace right pleural effusion suggested.
[2017-02-02] MEDS ORDERED: Lactated Ringer's 1,000 ML IV ONE (11:09)
[2017-02-02] MEDS ORDERED: Propofol 10 mg/ml Inj (20 ML) ONE (12:25)
--- NOTE | 2017-02-02 12:48 | PCM.SURG1 ---
Surgeon's Initial Post Op Note - Surgeon's Notes Surgeon: Dr. Hunter Devulcanizer Charger: Carlos Manuel PGY2, Beatris PGY1 Type of Anesthesia: General Endo Pre-Operative Diagnosis: Ventilatory dependent Respiratory Failure Operative Findings: marked ascites. see opp note Post-Operative Diagnosis: same Operation Performed: Percutaneous Tracheostomy with Bronchoalveolar Lavage; Open Gastrostomy tube placement. Specimen/Specimens Removed: Abdominal Fluid sent for Cytology Estimated Blood Loss: EBL {In ML}: 25 Blood Products Given: N/A Drains Used: No Drains Post-Op Condition: Fair Date of Surgery/Procedure: 02/02/17 Time of Surgery/Procedure: 12:50
[2017-02-02] MEDS: Linezolid 600 mg in D5W 300 ml 600 MG/300 ML BAG IVPB SCH ×2 (13:10→22:53)
--- NOTE | 2017-02-02 13:33 | CP.CCUPN ---
<RadhaTraci - Last Filed: 02/02/17 13:33> CCU Subjective - Physician Review Subjective (Free Text): Progress note Patient seen and examined at bedside, patient self-extubated and was re- intubated yesterday. Patient seen at bedside. Patient has eyes open and indicates that she's awake. GCS12T ([id number]). No acute events overnight. Patient had trach and PEG inserted by Surgery team today Critical Care Time Spent (in minutes): 35 CCU Objective - Vital Signs / Intake & Output Vital Signs (Last 4 hours): Vital Signs Pulse Resp BP Pulse Ox 02/02/17 10:20 134/68 02/02/17 10:00 87 12 100 Intake and Output (Last 8hrs): Intake & Output 02/01/17 02/02/17 02/02/17 22:59 06:59 14:59 Intake Total 733 266 324 Output Total 300 Balance 733 -34 324 Weight 112 lb 0.6 oz Intake: IV 100 100 Intake, IV Amount 193 96 324 Left Medial Port Internal 100 300 Jugular Left Proximal Port 93 96 24 Internal Jugular Tube Feeding 280 70 0 Other 160 Output: Urine 300 Urine, Voided 300 Other: # Bowel Movements 1 - Physical Exam Head: Positive for: Atraumatic, Normocephalic Pupils: Positive for: PERRL Extroacular Muscles: Positive for: EOMI Mouth: Positive for: Moist Mucous Membranes, Other (trach) Respiratory/Chest: Positive for: Wheezes, Decreased Breath Sounds, Rhonchi, Other (intubated). Negative for: Respiratory Distress, Accessory Muscle Use Cardiovascular: Positive for: Regular Rate and Rhythm, Murmurs, Normal S1, S2 Abdomen: Positive for: Feeding Tubes (gastrostomy tube). Negative for: Tenderness, Distention, Peritoneal Signs Upper Extremity: Positive for: Normal Inspection. Negative for: Edema Lower Extremity: Positive for: Normal Inspection. Negative for: Edema Neurological: Positive for: Other (intubated). Negative for: GCS=15 (GCS 11T) Skin: Positive for: Warm Psychiatric: Positive for: Alert, Other (intubated) - Medications Active Medications: Active Medications Generic Name Dose Route Start Last Admin Trade Name Freq PRN Reason Stop Dose Admin Acetaminophen 650 mg 01/17/17 21:49 01/18/17 15:23 Tylenol 325mg Tab PO 650 mg Q6 PRN Administration Pain, moderate (4-7) Albuterol/Ipratropium 3 ml 01/31/17 20:00 02/02/17 07:45 Duoneb 3 Mg/0.5 Mg (3 Ml) Ud INH 3 ml RQ6 SCOTTY Administration Aspirin 81 mg 01/28/17 10:00 02/02/17 10:00 Aspirin Chewable PO Not Given DAILY SCOTTY Enalapril Maleate 5 mg 01/26/17 12:45 02/02/17 10:00 Vasotec PO Not Given DAILY SCOTTY Enoxaparin Sodium 40 mg 02/01/17 10:00 02/02/17 10:20 Lovenox SC Not Given DAILY SCOTTY Propofol 1,000 mg in 100 mls @ 1.388 mls/hr 01/24/17 10:00 02/02/17 05:20 Diprivan IV 43.22 mcg/kg/min .Q24H PRN 12 mls/hr TITRATE PER MD ORDER Administration Protocol 5 MCG/KG/MIN Levetiracetam 750 mg/ Sodium 107.5 mls @ 420 mls/hr 01/27/17 13:00 02/02/17 01:00 Chloride IVPB 420 mls/hr Q12H SCOTTY Administration Azithromycin 500 mg/ Sodium 250 mls @ 250 mls/hr 01/28/17 10:00 02/01/17 11: 28 Chloride IVPB 250 mls/hr DAILY SCOTTY Administration Ferric Sodium Gluconate 110 mls @ 110 mls/hr 01/29/17 11:00 02/01/17 12:09 Complex 125 mg/ Sodium IVPB 02/06/17 10:01 110 mls/hr Chloride DAILY SCOTTY Administration Linezolid 600 mg in 300 mls @ 200 mls/hr 01/29/17 22:00 02/02/17 13:10 Zyvox 600mg/300ml D5w IVPB 200 mls/hr Q12 SCOTTY Administration Aztreonam 1 gm/ Sodium 100 mls @ 100 mls/hr 01/31/17 10:00 02/02/17 09:46 Chloride IVPB 100 mls/hr Q8H SCOTTY Administration Insulin Aspart 0 unit 01/25/17 12:00 02/02/17 13:15 Novolog SC Not Given Q6 SCOTTY Protocol Insulin Glargine 20 unit 01/25/17 22:00 02/01/17 22:30 Lantus SC Not Given HS SCOTTY Levothyroxine Sodium 25 mcg 01/18/17 06:30 02/02/17 06:41 Synthroid PO 25 mcg DAILY@0630 SCOTTY Administration Metoprolol Tartrate 25 mg 01/26/17 18:00 02/02/17 10:20 Lopressor PO Not Given BID SCOTYT Nystatin 1 applic 01/24/17 18:00 02/02/17 10:22 Nystop Topical Powder TOP 1 applic BID SCOTTY Administration Pantoprazole Sodium 40 mg 01/19/17 10:00 02/02/17 10:00 Protonix Inj IVP 40 mg DAILY SCOTTY Administration Rosuvastatin Calcium 20 mg 01/18/17 22:00 02/01/17 22:14 Crestor PO 20 mg HS SCOTTY Administration Saccharomyces Boulardii 250 mg 01/18/17 18:00 02/02/17 10:19 Florastor PO Not Given BID SCOTTY Spironolactone 12.5 mg 01/20/17 18:00 02/02/17 10:22 Aldactone PO Not Given BID SCOTTY - Patient Studies Lab Studies: Microbiology Studies 01/29/17 21:00 Blood Culture - Preliminary Blood-Thru Central Line NO GROWTH AFTER 3 DAYS 01/29/17 21:00 Blood Culture - Preliminary Blood-Thru Central Line NO GROWTH AFTER 3 DAYS 01/29/17 Unknown Gram Stain - Final Trachasp Sputum Culture - Final NORMAL ORAL DANIEL Lab Studies 02/02/17 02/02/17 02/02/17 Range/Units 13:16 10:31 06:29 WBC (4.8-10.8) K/uL RBC (3.80-5.20) Mil/uL Hgb (11.0-16.0) g/dL Hct (34.0-47.0) % MCV (81.0-99.0) fL MCH (27.0-31.0) pg MCHC (33.0-37.0) g/dL RDW (11.5-14.5) % Plt Count (130-400) K/uL MPV (7.2-11.7) fL Neut % (Auto) (50.0-75.0) % Lymph % (Auto) (20.0-40.0) % [place] % (Auto) (0.0-10.0) % Eos % (Auto) (0.0-4.0) % Baso % (Auto) (0.0-2.0) % Neut # (1.8-7.0) K/uL Lymph # (1.0-4.3) K/uL [place] # (0.0-0.8) K/uL Eos # (0.0-0.7) K/uL Baso # (0.0-0.2) K/uL Puncture Site pCO2 (35-45) mm/Hg pO2 (80-100) mm/Hg HCO3 (21-28) mmol/L ABG pH (7.35-7.45) ABG Total CO2 (22-28) mmol/L ABG O2 Saturation (95-98) % ABG Base Excess (-2.0-3.0) mmol/L ABG Hemoglobin (11.7-17.4) g/dL ABG Carboxyhemoglobin (0.5-1.5) % POC ABG HHb (Measured) (0.0-5.0) % ABG Methemoglobin (0.0-3.0) % Singh Test A-a O2 Difference mm/Hg Respiratory Index Hgb O2 Saturation (95.0-98.0) % Vent Mode Mechanical Rate FiO2 % Tidal Volume PEEP Crit Value Called To Crit Value Called By Crit Value Read Back Blood Gas Notified Time Sodium (132-148) mmol/L Potassium (3.6-5.2) mmol/L Chloride (98-107) mmol/L Carbon Dioxide (22-30) mmol/L Anion Gap (10-20) BUN (7-17) mg/dL Creatinine (0.7-1.2) mg/dL Est GFR ( Amer) Est GFR (Non-Af Amer) POC Glucose (mg/dL) 80 116 H (65-110) mg/dL Random Glucose (65-105) mg/dL Calcium (8.6-10.4) mg/dl Blood Type O POSITIVE Antibody Screen Positive Antibody Identification Anti c 02/02/17 02/02/17 02/02/17 Range/Units 06:23 06:23 05:03 WBC 4.0 L (4.8-10.8) K/uL RBC 2.92 L (3.80-5.20) Mil/uL Hgb 7.8 L (11.0-16.0) g/dL Hct 23.7 L (34.0-47.0) % MCV 81.3 (81.0-99.0) fL MCH 26.6 L (27.0-31.0) pg MCHC 32.7 L (33.0-37.0) g/dL RDW 15.1 H (11.5-14.5) % Plt Count 186 (130-400) K/uL MPV 8.1 (7.2-11.7) fL Neut % (Auto) 53.5 (50.0-75.0) % Lymph % (Auto) 32.2 (20.0-40.0) % [place] % (Auto) 8.9 (0.0-10.0) % Eos % (Auto) 4.1 H (0.0-4.0) % Baso % (Auto) 1.3 (0.0-2.0) % Neut # 2.2 (1.8-7.0) K/uL Lymph # 1.3 (1.0-4.3) K/uL [place] # 0.4 (0.0-0.8) K/uL Eos # 0.2 (0.0-0.7) K/uL Baso # 0.1 (0.0-0.2) K/uL Puncture Site Rt radial pCO2 38 (35-45) mm/Hg pO2 147 H (80-100) mm/Hg HCO3 27.3 (21-28) mmol/L ABG pH 7.46 H (7.35-7.45) ABG Total CO2 28.2 H (22-28) mmol/L ABG O2 Saturation 99.0 H (95-98) % ABG Base Excess 3.0 (-2.0-3.0) mmol/L ABG Hemoglobin 8.1 L (11.7-17.4) g/dL ABG Carboxyhemoglobin 1.5 (0.5-1.5) % POC ABG HHb (Measured) 1.0 (0.0-5.0) % ABG Methemoglobin 1.5 (0.0-3.0) % Singh Test Pos A-a O2 Difference 91.0 mm/Hg Respiratory Index 0.6 Hgb O2 Saturation 96.0 (95.0-98.0) % Vent Mode Prvc Mechanical Rate 12 FiO2 40.0 % Tidal Volume 400 PEEP 5 Crit Value Called To Md lynne anderson Crit Value Called By R alert semiconductor lab technician Crit Value Read Back Y Blood Gas Notified Time 635 Sodium 132 (132-148) mmol/L Potassium 4.2 (3.6-5.2) mmol/L Chloride 101 (98-107) mmol/L Carbon Dioxide 27 (22-30) mmol/L Anion Gap 9 L (10-20) BUN 17 (7-17) mg/dL Creatinine 0.4 L (0.7-1.2) mg/dL Est GFR ( Amer) > 60 Est GFR (Non-Af Amer) > 60 POC Glucose (mg/dL) (65-110) mg/dL Random Glucose 108 H (65-105) mg/dL Calcium 7.7 L (8.6-10.4) mg/dl Blood Type Antibody Screen Antibody Identification 02/02/17 02/01/17 Range/Units 01:04 17:30 WBC (4.8-10.8) K/uL RBC (3.80-5.20) Mil/uL Hgb (11.0-16.0) g/dL Hct (34.0-47.0) % MCV (81.0-99.0) fL MCH (27.0-31.0) pg MCHC (33.0-37.0) g/dL RDW (11.5-14.5) % Plt Count (130-400) K/uL MPV (7.2-11.7) fL Neut % (Auto) (50.0-75.0) % Lymph % (Auto) (20.0-40.0) % [place] % (Auto) (0.0-10.0) % Eos % (Auto) (0.0-4.0) % Baso % (Auto) (0.0-2.0) % Neut # (1.8-7.0) K/uL Lymph # (1.0-4.3) K/uL [place] # (0.0-0.8) K/uL Eos # (0.0-0.7) K/uL Baso # (0.0-0.2) K/uL Puncture Site pCO2 (35-45) mm/Hg pO2 (80-100) mm/Hg HCO3 (21-28) mmol/L ABG pH (7.35-7.45) ABG Total CO2 (22-28) mmol/L ABG O2 Saturation (95-98) % ABG Base Excess (-2.0-3.0) mmol/L ABG Hemoglobin (11.7-17.4) g/dL ABG Carboxyhemoglobin (0.5-1.5) % POC ABG HHb (Measured) (0.0-5.0) % ABG Methemoglobin (0.0-3.0) % Singh Test A-a O2 Difference mm/Hg Respiratory Index Hgb O2 Saturation (95.0-98.0) % Vent Mode Mechanical Rate FiO2 % Tidal Volume PEEP Crit Value Called To Crit Value Called By Crit Value Read Back Blood Gas Notified Time Sodium (132-148) mmol/L Potassium (3.6-5.2) mmol/L Chloride (98-107) mmol/L Carbon Dioxide (22-30) mmol/L Anion Gap (10-20) BUN (7-17) mg/dL Creatinine (0.7-1.2) mg/dL Est GFR ( Amer) Est GFR (Non-Af Amer) POC Glucose (mg/dL) 175 H 118 H (65-110) mg/dL Random Glucose (65-105) mg/dL Calcium (8.6-10.4) mg/dl Blood Type Antibody Screen Antibody Identification Laboratory Results - last 24 hr 02/01/17 02/02/17 02/02/17 17:30 01:04 05:03 WBC RBC Hgb Hct MCV MCH MCHC RDW Plt Count MPV Neut % (Auto) Lymph % (Auto) [place] % (Auto) Eos % (Auto) Baso % (Auto) Neut # Lymph # [place] # Eos # Baso # Puncture Site Rt radial pCO2 38 pO2 147 H HCO3 27.3 ABG pH 7.46 H ABG Total CO2 28.2 H ABG O2 Saturation 99.0 H ABG Base Excess 3.0 ABG Hemoglobin 8.1 L ABG Carboxyhemoglobin 1.5 POC ABG HHb (Measured) 1.0 ABG Methemoglobin 1.5 Isngh Test Pos A-a O2 Difference 91.0 Respiratory Index 0.6 Hgb O2 Saturation 96.0 Vent Mode Prvc Mechanical Rate 12 FiO2 40.0 Tidal Volume 400 PEEP 5 Crit Value Called To Md lynne anderson Crit Value Called By R alert semiconductor lab technician Crit Value Read Back Y Blood Gas Notified Time 635 Sodium Potassium Chloride Carbon Dioxide Anion Gap BUN Creatinine Est GFR ( Amer) Est GFR (Non-Af Amer) POC Glucose (mg/dL) 118 H 175 H Random Glucose Calcium Blood Type Antibody Screen Antibody Identification 02/02/17 02/02/17 02/02/17 06:23 06:23 06:29 WBC 4.0 L RBC 2.92 L Hgb 7.8 L Hct 23.7 L MCV 81.3 MCH 26.6 L MCHC 32.7 L RDW 15.1 H Plt Count 186 MPV 8.1 Neut % (Auto) 53.5 Lymph % (Auto) 32.2 [place] % (Auto) 8.9 Eos % (Auto) 4.1 H Baso % (Auto) 1.3 Neut # 2.2 Lymph # 1.3 [place] # 0.4 Eos # 0.2 Baso # 0.1 Puncture Site pCO2 pO2 HCO3 ABG pH ABG Total CO2 ABG O2 Saturation ABG Base Excess ABG Hemoglobin ABG Carboxyhemoglobin POC ABG HHb (Measured) ABG Methemoglobin Singh Test A-a O2 Difference Respiratory Index Hgb O2 Saturation Vent Mode Mechanical Rate FiO2 Tidal Volume PEEP Crit Value Called To Crit Value Called By Crit Value Read Back Blood Gas Notified Time Sodium 132 Potassium 4.2 Chloride 101 Carbon Dioxide 27 Anion Gap 9 L BUN 17 Creatinine 0.4 L Est GFR ( Amer) > 60 Est GFR (Non-Af Amer) > 60 POC Glucose (mg/dL) 116 H Random Glucose 108 H Calcium 7.7 L Blood Type Antibody Screen Antibody Identification 02/02/17 02/02/17 10:31 13:16 WBC RBC Hgb Hct MCV MCH MCHC RDW Plt Count MPV Neut % (Auto) Lymph % (Auto) [place] % (Auto) Eos % (Auto) Baso % (Auto) Neut # Lymph # [place] # Eos # Baso # Puncture Site pCO2 pO2 HCO3 ABG pH ABG Total CO2 ABG O2 Saturation ABG Base Excess ABG Hemoglobin ABG Carboxyhemoglobin POC ABG HHb (Measured) ABG Methemoglobin Singh Test A-a O2 Difference Respiratory Index Hgb O2 Saturation Vent Mode Mechanical Rate FiO2 Tidal Volume PEEP Crit Value Called To Crit Value Called By Crit Value Read Back Blood Gas Notified Time Sodium Potassium Chloride Carbon Dioxide Anion Gap BUN Creatinine Est GFR ( Amer) Est GFR (Non-Af Amer) POC Glucose (mg/dL) 80 Random Glucose Calcium Blood Type O POSITIVE Antibody Screen Positive Antibody Identification Anti c Fingerstick Blood Sugar Results: 89 Assessment/Plan - Assessment and Plan (Free Text) Assessment: Assessment Plan Neuro: History of Seizures: Keppra 750mg PO BID Sedation: Propofol 5mcg/kg/min Pain: Psych: history of Szhizophrenia Haldol 1mg Q12H Ativan 0.5mg Q6H PRN Cardio: 01/08 Echo: Grade I abnormal relaxation pattern. global hypokinesis, systolic function is mild to moderately reduced. Left atrium is mildly dilated. severe pulmonary HTN. mildly dilated left atrium, severe left ventricular dysfunction. EF 37% Cardio Consult: Dr. Crowell 01/25 BNP ASA 81mg POQD Enlapril 2.5mg POQD -increased to 5mg 01/26 Cardizem 30mg POQID Metoprolol tartrate 25mg POBID Enlapril 5mg POQD Pulm: 01/24 intubated 01/26 CXR: increased pleural effusions Vent Settings:450/01/21/50% 01/25 ABG: pH 7.53/ pO2 127/ pCO2 26/ pHCO3 25.2 01/26 ABG: pH 7.51/ pCO2 32/ pO2 108/ pHCO3 27.0 01/27/17 05:11 pH 7.49 35, 84, 27.5, Vent Settings CPAP 50% 21/06 01/27 CPAP trials today 01/28 daily CPAP trials 01/28 ABG: pH 7.44, pCO2 35, pO2 171, pHCO3 22.9, PRVC RR 12, PEEP 5, FiO2 50%, TV 400, 01/29 ABG: pH 7. 49, pCO2 35, pO2 77, pHCO3 27.6, PRVC RR 12, PEEP 5, FiO2 40%, TV 400 01/30 ABG: pH 7.43, pCO2 40, pO2 131, pHCO3 26.5, PRVC RR 12, PEEP 5, FiO2 40%, TV 400 01/31 ABG: pH 7.46, pCO2 39, pO2 132, pHCO3 27.7, PRVC RR 12, PEEP 5, FiO2 40%, TV 400 02/01 ABG: pH 7.45, pCO2 41, pO2 157, pHCO3 28.1, PRVC RR 12, PEEP 5, FiO2 40%, TV 400 02/02 ABG: pH 01/26 CXR: increased pleural effusions Albuterol 1.25mg INH RQ6H SCOTTY Lasix 40mg IVP STAT Endo: Hypothyroid Diabetes Novolin hold Levothyroxine 25mcgPOQD Insulin SCQ6H low dose sliding scale ISS low dose q6h Glucerna 1.5 initiate 20cc/hr, increase by 5cc/hr, goal rate 35cc/hr GI: Tube Feeds: Glucerna 1.5 initiate 20cc/hr, increase by 5cc/hr, goal rate 35cc/ hr : n/a Renal: I/O: 1461.1/725 = 736.1 24 UOP 725cc/hr 01/25 repleted potassium Heme/Onc: Iron deficiency anemia 01/25 H/H: 10.0/29.9 01/26 H/H 9.7/29.0 01/27 H/H: 9.0/26.7 01/28 H/H: 8.7/25.7 01/29 9.0/26.7 01/30 01/31 02/01 8.3/25.1 Iron 10 TIBC 209 % 4.78 Ferrlecit 125mg IVPB QD MSK: n/a ID: 01/25 WBC 5.0 from 7.2 f/u AM CBC 01/30 ESR 90 Nystatin 1 top BID Tylenol 650mg POQ6H Azithromycin 500mg IVPB QD Prophylaxis: DVT: Lovenox 40mg SC QD GI: Protonix 40mg IVP QD Folic Acid 1mg PO daily Florastor 250mg PO BID discussed with Dr. Dominic Garcia, DO PGY1 <Malachi Alfaro - Last Filed: 02/02/17 16:00> CCU Objective - Vital Signs / Intake & Output Vital Signs (Last 4 hours): Vital Signs Temp Pulse Resp BP Pulse Ox 02/02/17 14:30 90 12 165/76 H 99 02/02/17 14:02 101 H 12 161/74 H 99 02/02/17 14:00 103 H 12 157/74 H 99 02/02/17 13:47 96 H 12 157/74 H 99 02/02/17 13:45 98 H 12 154/57 H 99 02/02/17 13:32 77 12 154/57 H 99 02/02/17 13:30 79 12 158/63 H 99 02/02/17 13:17 84 11 L 158/63 H 99 02/02/17 13:15 84 12 145/57 L 98 02/02/17 13:02 88 11 L 171/79 H 98 02/02/17 13:00 97.6 F 94 H 12 171/79 H 98 02/02/17 12:43 93 H 12 170/87 H 100 02/02/17 12:42 96 H 12 Intake and Output (Last 8hrs): Intake & Output 02/02/17 02/02/17 02/02/17 06:59 14:59 22:59 Intake Total 266 536 Output Total 300 Balance -34 536 Weight 112 lb 0.6 oz Intake: IV 100 100 Intake, IV Amount 96 436 Left Medial Port Internal 400 Jugular Left Proximal Port 96 36 Internal Jugular Tube Feeding 70 0 Output: Urine 300 Urine, Voided 300 - Medications Active Medications: Active Medications Generic Name Dose Route Start Last Admin Trade Name Freq PRN Reason Stop Dose Admin Acetaminophen 650 mg 01/17/17 21:49 01/18/17 15:23 Tylenol 325mg Tab PO 650 mg Q6 PRN Administration Pain, moderate (4-7) Albuterol/Ipratropium 3 ml 01/31/17 20:00 02/02/17 07:45 Duoneb 3 Mg/0.5 Mg (3 Ml) Ud INH 3 ml RQ6 SCOTTY Administration Aspirin 81 mg 01/28/17 10:00 02/02/17 10:00 Aspirin Chewable PO Not Given DAILY [facility] Enalapril Maleate 5 mg 01/26/17 12:45 02/02/17 10:00 Vasotec PO Not Given DAILY [facility] Enoxaparin Sodium 40 mg 02/01/17 10:00 02/02/17 10:20 Lovenox SC Not Given DAILY SCOTTY Propofol 1,000 mg in 100 mls @ 1.388 mls/hr 01/24/17 10:00 02/02/17 14:27 Diprivan IV 43.22 mcg/kg/min .Q24H PRN 12 mls/hr TITRATE PER MD ORDER Administration Protocol 5 MCG/KG/MIN Levetiracetam 750 mg/ Sodium 107.5 mls @ 420 mls/hr 01/27/17 13:00 02/02/17 14:23 Chloride IVPB 420 mls/hr Q12H SCOTTY Administration Azithromycin 500 mg/ Sodium 250 mls @ 250 mls/hr 01/28/17 10:00 02/02/17 15: 35 Chloride IVPB 250 mls/hr DAILY SCOTTY Administration Ferric Sodium Gluconate 110 mls @ 110 mls/hr 01/29/17 11:00 02/02/17 14:30 Complex 125 mg/ Sodium IVPB 02/06/17 10:01 110 mls/hr Chloride DAILY SCOTTY Administration Linezolid 600 mg in 300 mls @ 200 mls/hr 01/29/17 22:00 02/02/17 13:10 Zyvox 600mg/300ml D5w IVPB 200 mls/hr Q12 SCOTTY Administration Aztreonam 1 gm/ Sodium 100 mls @ 100 mls/hr 01/31/17 10:00 02/02/17 09:46 Chloride IVPB 100 mls/hr Q8H SCOTTY Administration Insulin Aspart 0 unit 01/25/17 12:00 02/02/17 13:15 Novolog SC Not Given Q6 SCOTTY Protocol Insulin Glargine 20 unit 01/25/17 22:00 02/01/17 22:30 Lantus SC Not Given HS SCOTTY Levothyroxine Sodium 25 mcg 01/18/17 06:30 02/02/17 06:41 Synthroid PO 25 mcg DAILY@0630 SCOTTY Administration Metoprolol Tartrate 25 mg 01/26/17 18:00 02/02/17 10:20 Lopressor PO Not Given BID SCOTTY Nystatin 1 applic 01/24/17 18:00 02/02/17 10:22 Nystop Topical Powder TOP 1 applic BID SCOTTY Administration Pantoprazole Sodium 40 mg 01/19/17 10:00 02/02/17 10:00 Protonix Inj IVP 40 mg DAILY SCOTTY Administration Rosuvastatin Calcium 20 mg 01/18/17 22:00 02/01/17 22:14 Crestor PO 20 mg HS SCOTTY Administration Saccharomyces Boulardii 250 mg 01/18/17 18:00 02/02/17 10:19 Florastor PO Not Given BID SCOTTY Spironolactone 12.5 mg 01/20/17 18:00 02/02/17 10:22 Aldactone PO Not Given BID SCOTTY - Patient Studies Lab Studies: Microbiology Studies 01/29/17 21:00 Blood Culture - Preliminary Blood-Thru Central Line NO GROWTH AFTER 3 DAYS 01/29/17 21:00 Blood Culture - Preliminary Blood-Thru Central Line NO GROWTH AFTER 3 DAYS Lab Studies 02/02/17 02/02/17 02/02/17 Range/Units 13:16 10:31 06:29 WBC (4.8-10.8) K/uL RBC (3.80-5.20) Mil/uL Hgb (11.0-16.0) g/dL Hct (34.0-47.0) % MCV (81.0-99.0) fL MCH (27.0-31.0) pg MCHC (33.0-37.0) g/dL RDW (11.5-14.5) % Plt Count (130-400) K/uL MPV (7.2-11.7) fL Neut % (Auto) (50.0-75.0) % Lymph % (Auto) (20.0-40.0) % [place] % (Auto) (0.0-10.0) % Eos % (Auto) (0.0-4.0) % Baso % (Auto) (0.0-2.0) % Neut # (1.8-7.0) K/uL Lymph # (1.0-4.3) K/uL [place] # (0.0-0.8) K/uL Eos # (0.0-0.7) K/uL Baso # (0.0-0.2) K/uL Puncture Site pCO2 (35-45) mm/Hg pO2 (80-100) mm/Hg HCO3 (21-28) mmol/L ABG pH (7.35-7.45) ABG Total CO2 (22-28) mmol/L ABG O2 Saturation (95-98) % ABG Base Excess (-2.0-3.0) mmol/L ABG Hemoglobin (11.7-17.4) g/dL ABG Carboxyhemoglobin (0.5-1.5) % POC ABG HHb (Measured) (0.0-5.0) % ABG Methemoglobin (0.0-3.0) % Singh Test A-a O2 Difference mm/Hg Respiratory Index Hgb O2 Saturation (95.0-98.0) % Vent Mode Mechanical Rate FiO2 % Tidal Volume PEEP Crit Value Called To Crit Value Called By Crit Value Read Back Blood Gas Notified Time Sodium (132-148) mmol/L Potassium (3.6-5.2) mmol/L Chloride (98-107) mmol/L Carbon Dioxide (22-30) mmol/L Anion Gap (10-20) BUN (7-17) mg/dL Creatinine (0.7-1.2) mg/dL Est GFR ( Amer) Est GFR (Non-Af Amer) POC Glucose (mg/dL) 80 116 H (65-110) mg/dL Random Glucose (65-105) mg/dL Calcium (8.6-10.4) mg/dl Blood Type O POSITIVE Antibody Screen Positive Antibody Identification Anti c Antigen Identification c Antigen - NEGATIVE IRA, Poly Interpret Negative (NEGATIVE) 02/02/17 02/02/17 02/02/17 Range/Units 06:23 06:23 05:03 WBC 4.0 L (4.8-10.8) K/uL RBC 2.92 L (3.80-5.20) Mil/uL Hgb 7.8 L (11.0-16.0) g/dL Hct 23.7 L (34.0-47.0) % MCV 81.3 (81.0-99.0) fL MCH 26.6 L (27.0-31.0) pg MCHC 32.7 L (33.0-37.0) g/dL RDW 15.1 H (11.5-14.5) % Plt Count 186 (130-400) K/uL MPV 8.1 (7.2-11.7) fL Neut % (Auto) 53.5 (50.0-75.0) % Lymph % (Auto) 32.2 (20.0-40.0) % [place] % (Auto) 8.9 (0.0-10.0) % Eos % (Auto) 4.1 H (0.0-4.0) % Baso % (Auto) 1.3 (0.0-2.0) % Neut # 2.2 (1.8-7.0) K/uL Lymph # 1.3 (1.0-4.3) K/uL [place] # 0.4 (0.0-0.8) K/uL Eos # 0.2 (0.0-0.7) K/uL Baso # 0.1 (0.0-0.2) K/uL Puncture Site Rt radial pCO2 38 (35-45) mm/Hg pO2 147 H (80-100) mm/Hg HCO3 27.3 (21-28) mmol/L ABG pH 7.46 H (7.35-7.45) ABG Total CO2 28.2 H (22-28) mmol/L ABG O2 Saturation 99.0 H (95-98) % ABG Base Excess 3.0 (-2.0-3.0) mmol/L ABG Hemoglobin 8.1 L (11.7-17.4) g/dL ABG Carboxyhemoglobin 1.5 (0.5-1.5) % POC ABG HHb (Measured) 1.0 (0.0-5.0) % ABG Methemoglobin 1.5 (0.0-3.0) % Singh Test Pos A-a O2 Difference 91.0 mm/Hg Respiratory Index 0.6 Hgb O2 Saturation 96.0 (95.0-98.0) % Vent Mode Prvc Mechanical Rate 12 FiO2 40.0 % Tidal Volume 400 PEEP 5 Crit Value Called To Md lynne anderson Crit Value Called By R alert semiconductor lab technician Crit Value Read Back Y Blood Gas Notified Time 635 Sodium 132 (132-148) mmol/L Potassium 4.2 (3.6-5.2) mmol/L Chloride 101 (98-107) mmol/L Carbon Dioxide 27 (22-30) mmol/L Anion Gap 9 L (10-20) BUN 17 (7-17) mg/dL Creatinine 0.4 L (0.7-1.2) mg/dL Est GFR ( Amer) > 60 Est GFR (Non-Af Amer) > 60 POC Glucose (mg/dL) (65-110) mg/dL Random Glucose 108 H (65-105) mg/dL Calcium 7.7 L (8.6-10.4) mg/dl Blood Type Antibody Screen Antibody Identification Antigen Identification IRA, Poly Interpret (NEGATIVE) 02/02/17 02/01/17 Range/Units 01:04 17:30 WBC (4.8-10.8) K/uL RBC (3.80-5.20) Mil/uL Hgb (11.0-16.0) g/dL Hct (34.0-47.0) % MCV (81.0-99.0) fL MCH (27.0-31.0) pg MCHC (33.0-37.0) g/dL RDW (11.5-14.5) % Plt Count (130-400) K/uL MPV (7.2-11.7) fL Neut % (Auto) (50.0-75.0) % Lymph % (Auto) (20.0-40.0) % [place] % (Auto) (0.0-10.0) % Eos % (Auto) (0.0-4.0) % Baso % (Auto) (0.0-2.0) % Neut # (1.8-7.0) K/uL Lymph # (1.0-4.3) K/uL [place] # (0.0-0.8) K/uL Eos # (0.0-0.7) K/uL Baso # (0.0-0.2) K/uL Puncture Site pCO2 (35-45) mm/Hg pO2 (80-100) mm/Hg HCO3 (21-28) mmol/L ABG pH (7.35-7.45) ABG Total CO2 (22-28) mmol/L ABG O2 Saturation (95-98) % ABG Base Excess (-2.0-3.0) mmol/L ABG Hemoglobin (11.7-17.4) g/dL ABG Carboxyhemoglobin (0.5-1.5) % POC ABG HHb (Measured) (0.0-5.0) % ABG Methemoglobin (0.0-3.0) % Singh Test A-a O2 Difference mm/Hg Respiratory Index Hgb O2 Saturation (95.0-98.0) % Vent Mode Mechanical Rate FiO2 % Tidal Volume PEEP Crit Value Called To Crit Value Called By Crit Value Read Back Blood Gas Notified Time Sodium (132-148) mmol/L Potassium (3.6-5.2) mmol/L Chloride (98-107) mmol/L Carbon Dioxide (22-30) mmol/L Anion Gap (10-20) BUN (7-17) mg/dL Creatinine (0.7-1.2) mg/dL Est GFR ( Amer) Est GFR (Non-Af Amer) POC Glucose (mg/dL) 175 H 118 H (65-110) mg/dL Random Glucose (65-105) mg/dL Calcium (8.6-10.4) mg/dl Blood Type Antibody Screen Antibody Identification Antigen Identification IRA, Poly Interpret (NEGATIVE) Laboratory Results - last 24 hr 02/01/17 02/02/17 02/02/17 17:30 01:04 05:03 WBC RBC Hgb Hct MCV MCH MCHC RDW Plt Count MPV Neut % (Auto) Lymph % (Auto) [place] % (Auto) Eos % (Auto) Baso % (Auto) Neut # Lymph # [place] # Eos # Baso # Puncture Site Rt radial pCO2 38 pO2 147 H HCO3 27.3 ABG pH 7.46 H ABG Total CO2 28.2 H ABG O2 Saturation 99.0 H ABG Base Excess 3.0 ABG Hemoglobin 8.1 L ABG Carboxyhemoglobin 1.5 POC ABG HHb (Measured) 1.0 ABG Methemoglobin 1.5 Singh Test Pos A-a O2 Difference 91.0 Respiratory Index 0.6 Hgb O2 Saturation 96.0 Vent Mode Prvc Mechanical Rate 12 FiO2 40.0 Tidal Volume 400 PEEP 5 Crit Value Called To Md lynne anderson Crit Value Called By R alert semiconductor lab technician Crit Value Read Back Y Blood Gas Notified Time 635 Sodium Potassium Chloride Carbon Dioxide Anion Gap BUN Creatinine Est GFR ( Amer) Est GFR (Non-Af Amer) POC Glucose (mg/dL) 118 H 175 H Random Glucose Calcium Blood Type Antibody Screen Antibody Identification Antigen Identification IRA, Poly Interpret 02/02/17 02/02/17 02/02/17 06:23 06:23 06:29 WBC 4.0 L RBC 2.92 L Hgb 7.8 L Hct 23.7 L MCV 81.3 MCH 26.6 L MCHC 32.7 L RDW 15.1 H Plt Count 186 MPV 8.1 Neut % (Auto) 53.5 Lymph % (Auto) 32.2 [place] % (Auto) 8.9 Eos % (Auto) 4.1 H Baso % (Auto) 1.3 Neut # 2.2 Lymph # 1.3 [place] # 0.4 Eos # 0.2 Baso # 0.1 Puncture Site pCO2 pO2 HCO3 ABG pH ABG Total CO2 ABG O2 Saturation ABG Base Excess ABG Hemoglobin ABG Carboxyhemoglobin POC ABG HHb (Measured) ABG Methemoglobin Singh Test A-a O2 Difference Respiratory Index Hgb O2 Saturation Vent Mode Mechanical Rate FiO2 Tidal Volume PEEP Crit Value Called To Crit Value Called By Crit Value Read Back Blood Gas Notified Time Sodium 132 Potassium 4.2 Chloride 101 Carbon Dioxide 27 Anion Gap 9 L BUN 17 Creatinine 0.4 L Est GFR ( Amer) > 60 Est GFR (Non-Af Amer) > 60 POC Glucose (mg/dL) 116 H Random Glucose 108 H Calcium 7.7 L Blood Type Antibody Screen Antibody Identification Antigen Identification IRA, Poly Interpret 02/02/17 02/02/17 10:31 13:16 WBC RBC Hgb Hct MCV MCH MCHC RDW Plt Count MPV Neut % (Auto) Lymph % (Auto) [place] % (Auto) Eos % (Auto) Baso % (Auto) Neut # Lymph # [place] # Eos # Baso # Puncture Site pCO2 pO2 HCO3 ABG pH ABG Total CO2 ABG O2 Saturation ABG Base Excess ABG Hemoglobin ABG Carboxyhemoglobin POC ABG HHb (Measured) ABG Methemoglobin Singh Test A-a O2 Difference Respiratory Index Hgb O2 Saturation Vent Mode Mechanical Rate FiO2 Tidal Volume PEEP Crit Value Called To Crit Value Called By Crit Value Read Back Blood Gas Notified Time Sodium Potassium Chloride Carbon Dioxide Anion Gap BUN Creatinine Est GFR ( Amer) Est GFR (Non-Af Amer) POC Glucose (mg/dL) 80 Random Glucose Calcium Blood Type O POSITIVE Antibody Screen Positive Antibody Identification Anti c Antigen Identification c Antigen - NEGATIVE IRA, Poly Interpret Negative EKG/Cardiology Studies: Cardiology / EKG Studies 02/02/17 15:54 EKG [ELECTROCARDIOGRAM] Routine Comment: Mode Of Transportation: Reason For Exam: postop Isolation: Contact Assessment/Plan (1) Respiratory failure Current Visit: Yes Status: Acute (2) Pneumonia Current Visit: Yes Status: Acute Attending/Attestation - Attestation I have personally seen and examined this patient.: Yes I have fully participated in the care of the patient.: Yes I have reviewed all pertinent clinical information: Yes Notes (Text): 02/02/17 15:57 patient seen and examined in the intensive care unit. Case discussed with house staff in the morning Status post tracheostomy and PEG insertion Continue ventilatory support and wean as tolerated Continue antibiotics Follow up ABG and chest x-ray consider LTACH
--- NOTE | 2017-02-02 14:14 | RAD ---
HISTORY: trach placement COMPARISON: 02/02/2017 at 7:29 a.m. FINDINGS: LUNGS: Examination limited by oblique positioning. Patchy opacity at left lung base. No definite abnormal opacity elsewhere. PLEURA: Possible very small right pleural effusion. No left pleural effusion or pneumothorax. CARDIOVASCULAR: Normal heart size. Mild congestive change. Endotracheal tube has been replaced by a tracheostomy tube, in grossly appropriate position with its tipl approximately 3.2 cm above the tracheal iwona. There is a left internal jugular central venous catheter. OSSEOUS STRUCTURES: Multiple healed right rib fractures. Deformity of right humeral head likely posttraumatic, unchanged since at least 08/2015. . VISUALIZED UPPER ABDOMEN: Normal. OTHER FINDINGS: None. IMPRESSION: Tracheostomy tube in grossly appropriate position. Possible small right pleural effusion. Mild congestive change. Abnormal opacity at left base. Limited examination.
[2017-02-02] MEDS: Ferric Sodium Gluconat Complex 125 MG in Sodium Chloride 0.9% 100 ML IVPB SCH (14:30)
--- NOTE | 2017-02-02 14:45 | OP ---
PROCEDURE DATE: 02/02/2017 PREOPERATIVE DIAGNOSES: Respiratory failure and malnutrition. PROCEDURE CARRIED OUT: 1. Percutaneous tracheostomy with a #8 tracheostomy tube. 2. Open surgical gastrostomy. SURGEON: Elver Hunter Jr., MD. CYTOGENETICS LABORATORY MANAGER: Dr. Briones, Dr. Spear. ANESTHESIA ADMINISTERED BY: Nikole Anjali. INDICATIONS: The patient is an elderly woman, in the hospital with respiratory failure, cannot be weaned off of ventilator. OPERATIVE FINDINGS: A #8 tracheostomy tube was inserted using percutaneous technique and a #24 gastrostomy tube was inserted using open technique. DESCRIPTION OF PROCEDURE: The patient was given general anesthesia as well as local supplementation. An incision was made after bronchoscopy was carried with removal of the tube. Able to see the anterior wall of the trachea, a percutaneous puncture was made with a needle. A guidewire introduced to dilator. Then, uneventfully the tracheostomy tube was inserted here. This was secured to the skin with sutures. After this had been done, we then secured it into position, checked with a bronchoscope to make sure it was above the iwona and it was and then we carried out a standard gastrostomy tube. Major finding is that there was ascites, which was sent for cytology and the liver was enlarged. The rest of the intraoperative findings were unremarkable. The abdomen was closed with running sutures of Novafil and PDS. Gastrostomy tube was brought out on the left upper abdominal wall. Operation carried out, percutaneous tracheostomy and gastrostomy. Elver Hunter Jr., MD
[2017-02-02] MEDS: Azithromycin 500 MG in Sodium Chloride 0.9% 250 ML IVPB SCH (15:35)
--- NOTE | 2017-02-02 16:38 | PN ---
DATE: FOLLOWUP SUBJECTIVE: The patient underwent tracheostomy and gastrostomy feeding tube in the operating room today. No reported hypertension or ventricular arrhythmia. PHYSICAL EXAMINATION: VITAL SIGNS: Blood pressure 165/73, heart rate 90, respirations 12, temperature 97.6. HEENT: Pale conjunctivae. CHEST: Bilateral rhonchi. HEART: S1 and S2 regular. EXTREMITIES: Contracture deformity. LABORATORY DATA: Hemoglobin and hematocrit 7.8 and 23.4, white count 4.0, platelet count 185,000. SMA-7: Sodium 132, potassium 4.2, chloride 101, CO2 of 27, glucose 108, BUN 17, creatinine 0.4. ASSESSMENT: 1. Respiratory failure. 2. Status post tracheostomy and gastrostomy feeding tube. 3. History of supraventricular tachycardia. 4. Hypertension. 5. Cardiomyopathy. RECOMMENDATIONS: Continue current IV Zithromax and IV Azactam for urosepsis. Subcutaneous Lovenox is currently on hold. Continue Synthroid 25 mcg once a day, IV Zyvox 600 mg q. 12 hours. Obtain 12-lead EKG postoperatively. Florian Crowell MD
--- NOTE | 2017-02-02 22:29 | CP.PCM.PN ---
Subjective - Date & Time of Evaluation Date of Evaluation: 02/02/17 Time of Evaluation: 22:29 - Subjective Subjective: patient seen in ICU. Afebrile SEDATED S/P TRACHEOSTOMY.02/02/17. S/P PEG TODAY 02/02/17. LABS REVIEWED Objective - Vital Signs/Intake and Output Vital Signs (last 24 hours): Temp Pulse Resp BP Pulse Ox 98.3 F 108 H 15 158/77 H 100 02/02/17 22:03 02/02/17 22:03 02/02/17 22:03 02/02/17 22:03 02/02/17 21:06 Intake and Output: 02/02/17 02/03/17 18:59 06:59 Intake Total 685.0 256.5 Output Total 350 100 Balance 335.0 156.5 - Medications Medications: Current Medications Acetaminophen (Tylenol 325mg Tab) 650 mg PO Q6 PRN PRN Reason: Pain, moderate (4-7) Last Admin: 01/18/17 15:23 Dose: 650 mg Albuterol/Ipratropium (Duoneb 3 Mg/0.5 Mg (3 Ml) Ud) 3 ml INH RQ6 [facility] Last Admin: 02/02/17 19:57 Dose: 3 ml Aspirin (Aspirin Chewable) 81 mg PO DAILY [facility] Last Admin: 02/02/17 10:00 Dose: Not Given Enalapril Maleate (Vasotec) 5 mg PO DAILY [facility] Last Admin: 02/02/17 10:00 Dose: Not Given Enoxaparin Sodium (Lovenox) 40 mg SC DAILY [facility] Last Admin: 02/02/17 10:20 Dose: Not Given Levetiracetam 750 mg/ Sodium (Chloride) 107.5 mls @ 420 mls/hr IVPB Q12H [facility] Last Admin: 02/02/17 14:23 Dose: 420 mls/hr Linezolid (Zyvox 600mg/300ml D5w) 600 mg in 300 mls @ 200 mls/hr IVPB Q12 [facility] Last Admin: 02/02/17 13:10 Dose: 200 mls/hr Aztreonam 1 gm/ Sodium (Chloride) 100 mls @ 100 mls/hr IVPB Q8H [facility] Last Admin: 02/02/17 17:59 Dose: 100 mls/hr Insulin Aspart (Novolog) 0 unit SC Q6 [facility] PRN Reason: Protocol Last Admin: 02/02/17 18:05 Dose: Not Given Insulin Glargine (Lantus) 20 unit SC [facility] Last Admin: 02/01/17 22:30 Dose: Not Given Levothyroxine Sodium (Synthroid) 25 mcg PO DAILY@0630 [facility] Last Admin: 02/02/17 06:41 Dose: 25 mcg Lorazepam (Ativan) 2 mg IVP Q6H PRN PRN Reason: Anxiety Metoprolol Tartrate (Lopressor) 25 mg PO BID [facility] Last Admin: 02/02/17 18:05 Dose: Not Given Nystatin (Nystop Topical Powder) 1 applic TOP BID [facility] Last Admin: 02/02/17 18:04 Dose: 1 applic Rosuvastatin Calcium (Crestor) 20 mg PO [facility] Last Admin: 02/02/17 21:31 Dose: Not Given - Labs Labs: 02/02/17 06:23 02/02/17 06:23 PT 11.7 SECONDS (9.7-12.2) 02/01/17 06:25 INR 1.0 02/01/17 06:25 APTT 36 SECONDS (21-34) H 02/01/17 06:25 - Constitutional Appears: No Acute Distress, Cachectic, Chronically Ill - Head Exam Head Exam: NORMAL INSPECTION - Eye Exam Eye Exam: PERRL - ENT Exam ENT Exam: Normal Exam, Normal Oropharynx - Neck Exam Neck Exam: Normal Inspection - Respiratory Exam Respiratory Exam: Decreased Breath Sounds - Cardiovascular Exam Cardiovascular Exam: Irregular Rhythm, +S1, +S2 - GI/Abdominal Exam GI & Abdominal Exam: Soft, Hypoactive Bowel Sounds - Extremities Exam Extremities Exam: Normal Capillary Refill (BILATERAL vENODYNE.). absent: Calf Tenderness - Neurological Exam Neurological Exam: Altered - Skin Skin Exam: Warm Assessment and Plan (1) Sepsis Assessment & Plan: ON IV ZYVOX 600MG IV Q 12HRLY. 01/29/17. CONTINUE IV AZACTAM DECREASE DOSE 1GM IV Q 8HRLY. 01/18/17 X 2DAYS MORE AND DC 02/05/17 DISCONTINUE IV AZITHROMAX 500MG I QD DAILY .01/24/17 WATCH H/H AND PLT. REPEAT BLOOD CULTURES 01/29/17 -VE to date. Status: Acute Status: Acute (2) Respiratory failure Assessment & Plan: S/P TRACHEOSTOMY. REPEAT SPUTUM gRAM STAIN AND CULTURE -N-Rosibel. DC IV zITHROMAX. ON IV aZACTAM 1 G EVERY 8 HOURLY FOR 2 MORE DAYS.DC ON 02/05/17. Status: Acute (3) Pneumonia Status: Acute (4) Hypertension Status: Chronic (5) UTI (urinary tract infection) due to Enterococcus Assessment & Plan: patient has a VRE in the urine .ON zYVOX 600 MG iv EVERY 12 HOURLY .fOLLOW-UP REPEAT ua URINE CULTURES . Status: Acute
--- NOTE | 2017-02-02 23:35 | CP.PCM.PN ---
Subjective - Date & Time of Evaluation Date of Evaluation: 02/02/17 Time of Evaluation: 20:00 - Subjective Subjective: Pt is s/p OR Percutaneous Tracheostomy with Bronchoalveolar Lavage; Open Gastrostomy tube placement today, she is afebrile, less congested, more alert Objective - Vital Signs/Intake and Output Vital Signs (last 24 hours): Temp Pulse Resp BP Pulse Ox 98.1 F 105 H 15 145/62 99 02/02/17 22:52 02/02/17 23:00 02/02/17 23:00 02/02/17 22:52 02/02/17 23:00 Intake and Output: 02/02/17 02/03/17 18:59 06:59 Intake Total 685.0 668.5 Output Total 350 100 Balance 335.0 568.5 - Medications Medications: Current Medications Acetaminophen (Tylenol 325mg Tab) 650 mg PO Q6 PRN PRN Reason: Pain, moderate (4-7) Last Admin: 01/18/17 15:23 Dose: 650 mg Albuterol/Ipratropium (Duoneb 3 Mg/0.5 Mg (3 Ml) Ud) 3 ml INH RQ6 [facility] Last Admin: 02/02/17 19:57 Dose: 3 ml Aspirin (Aspirin Chewable) 81 mg PO DAILY [facility] Last Admin: 02/02/17 10:00 Dose: Not Given Enalapril Maleate (Vasotec) 5 mg PO DAILY [facility] Last Admin: 02/02/17 10:00 Dose: Not Given Enoxaparin Sodium (Lovenox) 40 mg SC DAILY [facility] Last Admin: 02/02/17 10:20 Dose: Not Given Levetiracetam 750 mg/ Sodium (Chloride) 107.5 mls @ 420 mls/hr IVPB Q12H [facility] Last Admin: 02/02/17 14:23 Dose: 420 mls/hr Linezolid (Zyvox 600mg/300ml D5w) 600 mg in 300 mls @ 200 mls/hr IVPB Q12 [facility] Last Admin: 02/02/17 22:53 Dose: 200 mls/hr Aztreonam 1 gm/ Sodium (Chloride) 100 mls @ 100 mls/hr IVPB Q8H [facility] Last Admin: 02/02/17 17:59 Dose: 100 mls/hr Insulin Aspart (Novolog) 0 unit SC Q6 [facility] PRN Reason: Protocol Last Admin: 02/02/17 18:05 Dose: Not Given Insulin Glargine (Lantus) 20 unit SC [facility] Last Admin: 02/01/17 22:30 Dose: Not Given Levothyroxine Sodium (Synthroid) 25 mcg PO DAILY@0630 [facility] Last Admin: 02/02/17 06:41 Dose: 25 mcg Lorazepam (Ativan) 2 mg IVP Q6H PRN PRN Reason: Anxiety Metoprolol Tartrate (Lopressor) 25 mg PO BID [facility] Last Admin: 02/02/17 18:05 Dose: Not Given Nystatin (Nystop Topical Powder) 1 applic TOP BID [facility] Last Admin: 02/02/17 18:04 Dose: 1 applic Rosuvastatin Calcium (Crestor) 20 mg PO [facility] Last Admin: 02/02/17 21:31 Dose: Not Given - Labs Labs: 02/02/17 06:23 02/02/17 06:23 PT 11.7 SECONDS (9.7-12.2) 02/01/17 06:25 INR 1.0 02/01/17 06:25 APTT 36 SECONDS (21-34) H 02/01/17 06:25 - Constitutional Appears: No Acute Distress, Cachectic, Chronically Ill - Head Exam Head Exam: ATRAUMATIC, NORMAL INSPECTION, NORMOCEPHALIC - Eye Exam Eye Exam: EOMI, Normal appearance, PERRL Pupil Exam: NORMAL ACCOMODATION, PERRL - Respiratory Exam Respiratory Exam: Decreased Breath Sounds, Rales, Rhonchi - Cardiovascular Exam Cardiovascular Exam: REGULAR RHYTHM, +S1, +S2. absent: Murmur - GI/Abdominal Exam GI & Abdominal Exam: Soft, Normal Bowel Sounds. absent: Tenderness - Neurological Exam Neurological Exam: Alert, Awake Assessment and Plan (1) Respiratory failure Assessment & Plan: on mechanical ventilator attempt weaning Status: Acute (2) Seizure disorder Status: Acute (3) Uncontrolled blood glucose Status: Acute (4) Systolic CHF Status: Acute (5) S/P bronchoalveolar lavage Status: Acute
[2017-02-03] MEDS: Albuterol-Ipratrop 3 mg / 0.5 (3 ml) UD INH SCH ×4 (01:23→19:48)
[2017-02-03] MEDS: Aztreonam 1 GM in Sodium Chloride 0.9% 100 ML IVPB SCH ×3 (01:28→17:58)
[2017-02-03] MEDS: (Novolog) Insulin Aspart, Recombinant 100 u/ml 10 ml vial SC SCH ×4 (02:55→18:25)
[2017-02-03] MEDS: Levothyroxine 25 MCG TAB PO SCH (05:39)
[2017-02-03 06:16] LABS: BASO % 0.3 % (0.0-2.0); EOS % 0.1 % (0.0-4.0); HEMOGLOBIN 9.3 g/dL (11.0-16.0); LYMPH % 9.8 % (20.0-40.0); MEAN CELL VOLUME 82.2 fL (81.0-99.0); MEAN CORPUSCULAR HEMOGLOBIN 28.2 pg (27.0-31.0); MEAN CORPUSCULAR HGB CONC 34.3 g/dL (33.0-37.0); MEAN PLATELET VOLUME 8.1 fL (7.2-11.7); MONO # 0.5 K/uL (0.0-0.8); MONO % 5.1 % (0.0-10.0); NEUT # 8.9 K/uL (1.8-7.0); NEUT % 84.7 % (50.0-75.0); NRBC % 0.1 % (0.0-2.0); PLATELET COUNT 265 K/uL (130-400); RED CELL DISTRIBUTION WIDTH 15.7 % (11.5-14.5); WHITE BLOOD COUNT 10.5 K/uL (4.8-10.8)
[2017-02-03 06:33] LABS: ALB/GLOB RATIO 0.8 (1.0-2.1); ALBUMIN 2.7 g/dL (3.5-5.0); ALT/SGPT 32 U/L (9-52); AST/SGOT 21 U/L (14-36); BLOOD UREA NITROGEN 13 mg/dL (7-17); CALCIUM 7.3 mg/dl (8.6-10.4); GFR AFRICAN-AMERICAN > 60; GFR NON-AFRICAN AMERICAN > 60; MAGNESIUM 1.7 mg/dL (1.6-2.3)
--- NOTE | 2017-02-03 08:08 | CP.PCM.PN ---
Subjective - Date & Time of Evaluation Date of Evaluation: 02/03/17 Time of Evaluation: 07:15 - Subjective Subjective: General Surgery Dr. Hunter Pt S&E @bedside. Pt underwent percutaneous tracheostomy and open G-tube placement. Pt tolerated the procedure well w/ no complications. Nursing reports some oozing from incision and drainage from the G tube overnight. Pt was transfused 1 unit pRBCs. This morning, pt arousable but non-verbal. ROS unobtainable. Objective - Vital Signs/Intake and Output Vital Signs (last 24 hours): Temp Pulse Resp BP Pulse Ox 98.1 F 106 H 15 128/62 100 02/03/17 00:00 02/03/17 07:01 02/03/17 07:01 02/03/17 07:01 02/03/17 07:01 Intake and Output: 02/03/17 02/03/17 06:59 18:59 Intake Total 1168.5 Output Total 200 Balance 968.5 - Medications Medications: Current Medications Acetaminophen (Tylenol 325mg Tab) 650 mg PO Q6 PRN PRN Reason: Pain, moderate (4-7) Last Admin: 01/18/17 15:23 Dose: 650 mg Albuterol/Ipratropium (Duoneb 3 Mg/0.5 Mg (3 Ml) Ud) 3 ml INH RQ6 [facility] Last Admin: 02/03/17 01:23 Dose: 3 ml Aspirin (Aspirin Chewable) 81 mg PO DAILY [facility] Last Admin: 02/02/17 10:00 Dose: Not Given Enalapril Maleate (Vasotec) 5 mg PO DAILY [facility] Last Admin: 02/02/17 10:00 Dose: Not Given Enoxaparin Sodium (Lovenox) 40 mg SC DAILY [facility] Last Admin: 02/02/17 10:20 Dose: Not Given Levetiracetam 750 mg/ Sodium (Chloride) 107.5 mls @ 420 mls/hr IVPB Q12H [facility] Last Admin: 02/03/17 02:52 Dose: 420 mls/hr Linezolid (Zyvox 600mg/300ml D5w) 600 mg in 300 mls @ 200 mls/hr IVPB Q12 [facility] Last Admin: 02/02/17 22:53 Dose: 200 mls/hr Aztreonam 1 gm/ Sodium (Chloride) 100 mls @ 100 mls/hr IVPB Q8H [facility] Last Admin: 02/03/17 01:28 Dose: 100 mls/hr Insulin Aspart (Novolog) 0 unit SC Q6 [facility] PRN Reason: Protocol Last Admin: 02/03/17 05:39 Dose: Not Given Insulin Glargine (Lantus) 20 unit SC [facility] Last Admin: 02/01/17 22:30 Dose: Not Given Levothyroxine Sodium (Synthroid) 25 mcg PO DAILY@0630 [facility] Last Admin: 02/03/17 05:39 Dose: Not Given Lorazepam (Ativan) 2 mg IVP Q6H PRN PRN Reason: Anxiety Metoprolol Tartrate (Lopressor) 25 mg PO BID [facility] Last Admin: 02/02/17 18:05 Dose: Not Given Nystatin (Nystop Topical Powder) 1 applic TOP BID [facility] Last Admin: 02/02/17 18:04 Dose: 1 applic Rosuvastatin Calcium (Crestor) 20 mg PO [facility] Last Admin: 02/02/17 21:31 Dose: Not Given - Labs Labs: 02/03/17 06:05 02/03/17 06:05 PT 11.7 SECONDS (9.7-12.2) 02/01/17 06:25 INR 1.0 02/01/17 06:25 APTT 36 SECONDS (21-34) H 02/01/17 06:25 - Constitutional Appears: Non-toxic, No Acute Distress - Head Exam Head Exam: NORMAL INSPECTION - Eye Exam Eye Exam: Normal appearance - ENT Exam ENT Exam: Mucous Membranes Moist - Neck Exam Additional comments: tracheostomy in place and functioning appropriately. - Respiratory Exam Respiratory Exam: NORMAL BREATHING PATTERN. absent: Accessory Muscle Use, Respiratory Distress - Cardiovascular Exam Cardiovascular Exam: Tachycardia - GI/Abdominal Exam GI & Abdominal Exam: Soft, Tenderness (grimace to pain nelsy-incisional). absent : Distended Additional comments: dressings soiled oozing midline incision G-tube w/ serosanguinous drainage - Neurological Exam Neurological Exam: Awake - Skin Skin Exam: Dry, Warm Assessment and Plan - Assessment and Plan (Free Text) Assessment: 81 y/o F POD#1 s/p perc trach and G-tube placement - cont G-tube to gravity - hold tube feeds - reinforce dressings PRN - monitor midline for bleeding - monitor labs/vitals - cont medical management per Critical Care Further recs per Dr. Elsa Horowitz DO PGY2
[2017-02-03 08:25] LABS: ANISOCYTOSIS SLIGHT; BANDS 3 % (0-2); BASOPHIL 1 % (0-2); LYMPHOCYTE 7 % (20-40); MONOCYTE 5 % (0-10); NEUTROPHIL 84 % (50-75); PLATELET ESTIMATE NORMAL (NORMAL); POIKILOCYTOSIS SLIGHT; TOTAL CELLS COUNTED 100
[2017-02-03 08:26] LABS: HYPOCHROMIC SLIGHT; OVALOCYTES SLIGHT; TEARDROP CELLS SLIGHT
[2017-02-03 08:27] LABS: BURR CELLS SLIGHT
[2017-02-03 08:28] LABS: TARGET CELLS SLIGHT
[2017-02-03 08:29] LABS: LARGE PLATELETS PRESENT
[2017-02-03] MEDS: Linezolid 600 mg in D5W 300 ml 600 MG/300 ML BAG IVPB SCH ×2 (10:38→21:25)
[2017-02-03 12:22] LABS: INR 1.4
[2017-02-03 12:41] LABS: PROTHROMBIN TIME 15.8 SECONDS (9.7-12.2)
[2017-02-03 13:23] LABS: SQUAMOUS EPITHIAL 8 /hpf (0-5); URINE AMORPHOUS SEDIMENT OCC /ul (<OCC); URINE BACTERIA OCC (<OCC); URINE BILIRUBIN NEGATIVE (NEGATIVE); URINE BLOOD NEGATIVE (NEGATIVE); URINE CLARITY Hazy (Clear); URINE COLOR Amber (YELLOW); URINE GLUCOSE (UA) NORMAL (Normal); URINE LEUKOCYTE ESTERASE NEG Leu/uL (Negative); URINE NITRATE NEGATIVE (NEGATIVE); URINE PROTEIN 2+ mg/dL (NEGATIVE); URINE UROBILINOGEN NORMAL mg/dL (0.2-1.0)
[2017-02-03 13:39] LABS: HEPATITIS B SURFACE AG NEGATIVE (NEGATIVE)
[2017-02-03 13:45] LABS: HEPATITIS A IGM NEGATIVE (NEGATIVE); HEPATITIS B CORE AB Negative (NEGATIVE)
[2017-02-03 14:26] LABS: BASO % 0.5 % (0.0-2.0); EOS % 0.3 % (0.0-4.0); HEMOGLOBIN 8.7 g/dL (11.0-16.0); LYMPH # 1.1 K/uL (1.0-4.3); LYMPH % 12.6 % (20.0-40.0); MEAN CELL VOLUME 82.2 fL (81.0-99.0); MEAN CORPUSCULAR HEMOGLOBIN 28.2 pg (27.0-31.0); MEAN CORPUSCULAR HGB CONC 34.3 g/dL (33.0-37.0); MEAN PLATELET VOLUME 7.8 fL (7.2-11.7); MONO # 0.5 K/uL (0.0-0.8); MONO % 5.7 % (0.0-10.0); NEUT # 7.1 K/uL (1.8-7.0); NEUT % 80.9 % (50.0-75.0); RBC 3.1 Mil/uL (3.80-5.20); WHITE BLOOD COUNT 8.8 K/uL (4.8-10.8)
--- NOTE | 2017-02-03 14:57 | CP.CCUPN ---
<Traci Garcia - Last Filed: 02/03/17 16:33> CCU Subjective - Physician Review Subjective (Free Text): Progress note Patient seen and examined at bedside, patient self-extubated and was re- intubated yesterday. Patient seen at bedside. Patient has eyes open and indicates that she's awake. GCS12T ([id number]). No acute events overnight. Patient had trach and PEG inserted by Surgery team today CCU Objective - Vital Signs / Intake & Output Vital Signs (Last 4 hours): Vital Signs Temp Pulse Resp BP Pulse Ox 02/03/17 14:01 97 H 13 131/64 100 02/03/17 13:01 115 H 21 133/67 100 02/03/17 12:01 103 H 14 129/64 100 02/03/17 12:00 98.6 F 02/03/17 11:01 99 H 12 125/57 L 100 Intake and Output (Last 8hrs): Intake & Output 02/02/17 02/03/17 02/03/17 22:59 06:59 14:59 Intake Total 736.5 581 500 Output Total 450 100 0 Balance 286.5 481 500 Weight 119 lb 0.794 oz Intake: IV 0 Intake, IV Amount 155.5 550 500 Left Distal Port Internal 500 Jugular Left Medial Port Internal 100 Jugular Left Proximal Port 55.5 550 Internal Jugular Tube Feeding 0 Blood Product 531 31 Apheresis Rbc Cp2d As3 Lr 281 1st Unit [id number] Other 50 Apheresis Rbc Cp2d As3 Lr 50 1st Unit [id number] Output: Urine 450 100 0 Urine, Voided 450 100 0 Stool 0 Other: # Voids Urine, Voided 1 - Physical Exam Head: Positive for: Atraumatic, Normocephalic Pupils: Positive for: PERRL Extroacular Muscles: Positive for: EOMI Mouth: Positive for: Moist Mucous Membranes, Other (trach) Respiratory/Chest: Positive for: Wheezes, Decreased Breath Sounds, Rhonchi, Other (intubated). Negative for: Respiratory Distress, Accessory Muscle Use Cardiovascular: Positive for: Regular Rate and Rhythm, Murmurs, Normal S1, S2 Abdomen: Positive for: Feeding Tubes (gastrostomy tube). Negative for: Tenderness, Distention, Peritoneal Signs Upper Extremity: Positive for: Normal Inspection. Negative for: Edema Lower Extremity: Positive for: Normal Inspection. Negative for: Edema Neurological: Positive for: Other (intubated). Negative for: GCS=15 (GCS 11T) Skin: Positive for: Warm Psychiatric: Positive for: Alert, Other (intubated) - Medications Active Medications: Active Medications Generic Name Dose Route Start Last Admin Trade Name Freq PRN Reason Stop Dose Admin Acetaminophen 650 mg 01/17/17 21:49 01/18/17 15:23 Tylenol 325mg Tab PO 650 mg Q6 PRN Administration Pain, moderate (4-7) Albuterol/Ipratropium 3 ml 01/31/17 20:00 02/03/17 14:00 Duoneb 3 Mg/0.5 Mg (3 Ml) Ud INH 3 ml RQ6 [facility] Administration Aspirin 81 mg 01/28/17 10:00 02/03/17 09:07 Aspirin Chewable PO Not Given DAILY [facility] Enalapril Maleate 5 mg 01/26/17 12:45 02/03/17 09:08 Vasotec PO Not Given DAILY [facility] Enoxaparin Sodium 40 mg 02/01/17 10:00 02/02/17 10:20 Lovenox SC Not Given DAILY [facility] Levetiracetam 750 mg/ Sodium 107.5 mls @ 420 mls/hr 01/27/17 13:00 02/03/17 13:11 Chloride IVPB 420 mls/hr Q12H [facility] Administration Linezolid 600 mg in 300 mls @ 200 mls/hr 01/29/17 22:00 02/03/17 10:38 Zyvox 600mg/300ml D5w IVPB 200 mls/hr Q12 [facility] Administration Aztreonam 1 gm/ Sodium 100 mls @ 100 mls/hr 01/31/17 10:00 02/03/17 09:08 Chloride IVPB 100 mls/hr Q8H [facility] Administration Insulin Aspart 0 unit 01/25/17 12:00 02/03/17 11:34 Novolog SC Not Given Q6 [facility] Protocol Insulin Glargine 20 unit 01/25/17 22:00 02/01/17 22:30 Lantus SC Not Given HS [facility] Levothyroxine Sodium 25 mcg 01/18/17 06:30 02/03/17 05:39 Synthroid PO Not Given DAILY@0630 [facility] Lorazepam 2 mg 02/02/17 20:29 Ativan IVP Q6H PRN Anxiety Metoprolol Tartrate 25 mg 01/26/17 18:00 02/03/17 09:09 Lopressor PO Not Given BID [facility] Morphine Sulfate 1 mg 02/03/17 14:53 Morphine IVP Q4 PRN Pain, moderate (4-7) Nystatin 1 applic 01/24/17 18:00 02/03/17 09:08 Nystop Topical Powder TOP 1 applic BID [facility] Administration Pantoprazole Sodium 40 mg 02/03/17 10:00 02/03/17 14:20 Protonix Inj IVP 40 mg DAILY [facility] Administration Rosuvastatin Calcium 20 mg 01/18/17 22:00 02/02/17 21:31 Crestor PO Not Given HS [facility] - Patient Studies Lab Studies: Microbiology Studies 01/29/17 21:00 Blood Culture - Preliminary Blood-Thru Central Line NO GROWTH AFTER 4 DAYS 01/29/17 21:00 Blood Culture - Preliminary Blood-Thru Central Line NO GROWTH AFTER 4 DAYS Lab Studies 02/03/17 02/03/17 02/03/17 Range/Units 14:20 13:09 12:09 WBC 8.8 (4.8-10.8) K/uL RBC 3.10 L (3.80-5.20) Mil/uL Hgb 8.7 L (11.0-16.0) g/dL Hct 25.5 L (34.0-47.0) % MCV 82.2 (81.0-99.0) fL MCH 28.2 (27.0-31.0) pg MCHC 34.3 (33.0-37.0) g/dL RDW 15.0 H (11.5-14.5) % Plt Count 250 (130-400) K/uL MPV 7.8 (7.2-11.7) fL Neut % (Auto) 80.9 H (50.0-75.0) % Lymph % (Auto) 12.6 L (20.0-40.0) % [place] % (Auto) 5.7 (0.0-10.0) % Eos % (Auto) 0.3 (0.0-4.0) % Baso % (Auto) 0.5 (0.0-2.0) % Neut # 7.1 H (1.8-7.0) K/uL Lymph # 1.1 (1.0-4.3) K/uL [place] # 0.5 (0.0-0.8) K/uL Eos # 0.0 (0.0-0.7) K/uL Baso # 0.0 (0.0-0.2) K/uL Neutrophils % (Manual) (50-75) % Band Neutrophils % (0-2) % Lymphocytes % (Manual) (20-40) % Monocytes % (Manual) (0-10) % Basophils % (Manual) (0-2) % Platelet Estimate (NORMAL) Large Platelets Hypochromasia (manual) Poikilocytosis (manual Anisocytosis (manual) Target Cells Tear Drop Cells Ovalocytes [place] Cells PT (9.7-12.2) SECONDS INR APTT (21-34) SECONDS Sodium (132-148) mmol/L Potassium (3.6-5.2) mmol/L Chloride (98-107) mmol/L Carbon Dioxide (22-30) mmol/L Anion Gap (10-20) BUN (7-17) mg/dL Creatinine (0.7-1.2) mg/dL Est GFR ( Amer) Est GFR (Non-Af Amer) POC Glucose (mg/dL) (65-110) mg/dL Random Glucose (65-105) mg/dL Calcium (8.6-10.4) mg/dl Phosphorus (2.5-4.5) mg/dL Magnesium (1.6-2.3) mg/dL Total Bilirubin (0.2-1.3) mg/dL AST (14-36) U/L ALT (9-52) U/L Alkaline Phosphatase (38-126) U/L Total Protein (6.3-8.3) g/dL Albumin (3.5-5.0) g/dL Globulin (2.2-3.9) gm/dL Albumin/Globulin Ratio (1.0-2.1) Urine Color Nay (YELLOW) Urine Clarity Hazy (Clear) Urine pH 5.0 (5.0-8.0) Ur Specific [place] 1.027 (1.003-1.030) Urine Protein 2+ H (NEGATIVE) mg/dL Urine Glucose (UA) Normal (Normal) mg/dL Urine Ketones Negative (NEGATIVE) mg/dL Urine Blood Negative (NEGATIVE) Urine Nitrate Negative (NEGATIVE) Urine Bilirubin Negative (NEGATIVE) Urine Urobilinogen Normal (0.2-1.0) mg/dL Ur Leukocyte Esterase Neg (Negative) Raoul/uL Ur Squamous Epith Cells 8 H (0-5) /hpf Amorphous Sediment Occ H (<OCC) /ul Urine Bacteria Occ H (<OCC) Hepatitis A IgM Ab Negative (NEGATIVE) Hep Bs Antigen Negative (NEGATIVE) Hep B Core IgM Ab Negative (NEGATIVE) Hepatitis C Antibody Reactive (NEGATIVE) HIV 1&2 Antibody Screen (NEGATIVE) Blood Type Antibody Screen Antibody Identification Antigen Identification IRA, Poly Interpret (NEGATIVE) 02/03/17 02/03/17 02/03/17 Range/Units 12:09 12:09 11:19 WBC (4.8-10.8) K/uL RBC (3.80-5.20) Mil/uL Hgb (11.0-16.0) g/dL Hct (34.0-47.0) % MCV (81.0-99.0) fL MCH (27.0-31.0) pg MCHC (33.0-37.0) g/dL RDW (11.5-14.5) % Plt Count (130-400) K/uL MPV (7.2-11.7) fL Neut % (Auto) (50.0-75.0) % Lymph % (Auto) (20.0-40.0) % [place] % (Auto) (0.0-10.0) % Eos % (Auto) (0.0-4.0) % Baso % (Auto) (0.0-2.0) % Neut # (1.8-7.0) K/uL Lymph # (1.0-4.3) K/uL [place] # (0.0-0.8) K/uL Eos # (0.0-0.7) K/uL Baso # (0.0-0.2) K/uL Neutrophils % (Manual) (50-75) % Band Neutrophils % (0-2) % Lymphocytes % (Manual) (20-40) % Monocytes % (Manual) (0-10) % Basophils % (Manual) (0-2) % Platelet Estimate (NORMAL) Large Platelets Hypochromasia (manual) Poikilocytosis (manual Anisocytosis (manual) Target Cells Tear Drop Cells Ovalocytes [place] Cells PT 15.8 H (9.7-12.2) SECONDS INR 1.4 APTT 36 H (21-34) SECONDS Sodium (132-148) mmol/L Potassium (3.6-5.2) mmol/L Chloride (98-107) mmol/L Carbon Dioxide (22-30) mmol/L Anion Gap (10-20) BUN (7-17) mg/dL Creatinine (0.7-1.2) mg/dL Est GFR ( Amer) Est GFR (Non-Af Amer) POC Glucose (mg/dL) 140 H (65-110) mg/dL Random Glucose (65-105) mg/dL Calcium (8.6-10.4) mg/dl Phosphorus (2.5-4.5) mg/dL Magnesium (1.6-2.3) mg/dL Total Bilirubin (0.2-1.3) mg/dL AST (14-36) U/L ALT (9-52) U/L Alkaline Phosphatase (38-126) U/L Total Protein (6.3-8.3) g/dL Albumin (3.5-5.0) g/dL Globulin (2.2-3.9) gm/dL Albumin/Globulin Ratio (1.0-2.1) Urine Color (YELLOW) Urine Clarity (Clear) Urine pH (5.0-8.0) Ur Specific [place] (1.003-1.030) Urine Protein (NEGATIVE) mg/dL Urine Glucose (UA) (Normal) mg/dL Urine Ketones (NEGATIVE) mg/dL Urine Blood (NEGATIVE) Urine Nitrate (NEGATIVE) Urine Bilirubin (NEGATIVE) Urine Urobilinogen (0.2-1.0) mg/dL Ur Leukocyte Esterase (Negative) Raoul/uL Ur Squamous Epith Cells (0-5) /hpf Amorphous Sediment (<OCC) /ul Urine Bacteria (<OCC) Hepatitis A IgM Ab (NEGATIVE) Hep Bs Antigen (NEGATIVE) Hep B Core IgM Ab (NEGATIVE) Hepatitis C Antibody (NEGATIVE) HIV 1&2 Antibody Screen Negative (NEGATIVE) Blood Type Antibody Screen Antibody Identification Antigen Identification IRA, Poly Interpret (NEGATIVE) 02/03/17 02/03/17 02/03/17 Range/Units 06:05 06:05 05:15 WBC 10.5 D (4.8-10.8) K/uL RBC 3.30 L (3.80-5.20) Mil/uL Hgb 9.3 L (11.0-16.0) g/dL Hct 27.1 L (34.0-47.0) % MCV 82.2 (81.0-99.0) fL MCH 28.2 (27.0-31.0) pg MCHC 34.3 (33.0-37.0) g/dL RDW 15.7 H (11.5-14.5) % Plt Count 265 (130-400) K/uL MPV 8.1 (7.2-11.7) fL Neut % (Auto) 84.7 H (50.0-75.0) % Lymph % (Auto) 9.8 L (20.0-40.0) % [place] % (Auto) 5.1 (0.0-10.0) % Eos % (Auto) 0.1 (0.0-4.0) % Baso % (Auto) 0.3 (0.0-2.0) % Neut # 8.9 H (1.8-7.0) K/uL Lymph # 1.0 (1.0-4.3) K/uL [place] # 0.5 (0.0-0.8) K/uL Eos # 0.0 (0.0-0.7) K/uL Baso # 0.0 (0.0-0.2) K/uL Neutrophils % (Manual) 84 H (50-75) % Band Neutrophils % 3 H (0-2) % Lymphocytes % (Manual) 7 L (20-40) % Monocytes % (Manual) 5 (0-10) % Basophils % (Manual) 1 (0-2) % Platelet Estimate Normal (NORMAL) Large Platelets Present Hypochromasia (manual) Slight Poikilocytosis (manual Slight Anisocytosis (manual) Slight Target Cells Slight Tear Drop Cells Slight Ovalocytes Slight [place] Cells Slight PT (9.7-12.2) SECONDS INR APTT (21-34) SECONDS Sodium 129 L (132-148) mmol/L Potassium 4.0 (3.6-5.2) mmol/L Chloride 100 (98-107) mmol/L Carbon Dioxide 25 (22-30) mmol/L Anion Gap 8 L (10-20) BUN 13 (7-17) mg/dL Creatinine 0.4 L (0.7-1.2) mg/dL Est GFR ( Amer) > 60 Est GFR (Non-Af Amer) > 60 POC Glucose (mg/dL) 131 H (65-110) mg/dL Random Glucose 139 H (65-105) mg/dL Calcium 7.3 L (8.6-10.4) mg/dl Phosphorus 3.5 (2.5-4.5) mg/dL Magnesium 1.7 (1.6-2.3) mg/dL Total Bilirubin 0.3 (0.2-1.3) mg/dL AST 21 (14-36) U/L ALT 32 (9-52) U/L Alkaline Phosphatase 88 (38-126) U/L Total Protein 6.1 L (6.3-8.3) g/dL Albumin 2.7 L (3.5-5.0) g/dL Globulin 3.4 (2.2-3.9) gm/dL Albumin/Globulin Ratio 0.8 L (1.0-2.1) Urine Color (YELLOW) Urine Clarity (Clear) Urine pH (5.0-8.0) Ur Specific [place] (1.003-1.030) Urine Protein (NEGATIVE) mg/dL Urine Glucose (UA) (Normal) mg/dL Urine Ketones (NEGATIVE) mg/dL Urine Blood (NEGATIVE) Urine Nitrate (NEGATIVE) Urine Bilirubin (NEGATIVE) Urine Urobilinogen (0.2-1.0) mg/dL Ur Leukocyte Esterase (Negative) Raoul/uL Ur Squamous Epith Cells (0-5) /hpf Amorphous Sediment (<OCC) /ul Urine Bacteria (<OCC) Hepatitis A IgM Ab (NEGATIVE) Hep Bs Antigen (NEGATIVE) Hep B Core IgM Ab (NEGATIVE) Hepatitis C Antibody (NEGATIVE) HIV 1&2 Antibody Screen (NEGATIVE) Blood Type Antibody Screen Antibody Identification Antigen Identification IRA, Poly Interpret (NEGATIVE) 02/03/17 02/02/17 02/02/17 Range/Units 00:00 17:30 10:31 WBC (4.8-10.8) K/uL RBC (3.80-5.20) Mil/uL Hgb (11.0-16.0) g/dL Hct (34.0-47.0) % MCV (81.0-99.0) fL MCH (27.0-31.0) pg MCHC (33.0-37.0) g/dL RDW (11.5-14.5) % Plt Count (130-400) K/uL MPV (7.2-11.7) fL Neut % (Auto) (50.0-75.0) % Lymph % (Auto) (20.0-40.0) % [place] % (Auto) (0.0-10.0) % Eos % (Auto) (0.0-4.0) % Baso % (Auto) (0.0-2.0) % Neut # (1.8-7.0) K/uL Lymph # (1.0-4.3) K/uL [place] # (0.0-0.8) K/uL Eos # (0.0-0.7) K/uL Baso # (0.0-0.2) K/uL Neutrophils % (Manual) (50-75) % Band Neutrophils % (0-2) % Lymphocytes % (Manual) (20-40) % Monocytes % (Manual) (0-10) % Basophils % (Manual) (0-2) % Platelet Estimate (NORMAL) Large Platelets Hypochromasia (manual) Poikilocytosis (manual Anisocytosis (manual) Target Cells Tear Drop Cells Ovalocytes [place] Cells PT (9.7-12.2) SECONDS INR APTT (21-34) SECONDS Sodium (132-148) mmol/L Potassium (3.6-5.2) mmol/L Chloride (98-107) mmol/L Carbon Dioxide (22-30) mmol/L Anion Gap (10-20) BUN (7-17) mg/dL Creatinine (0.7-1.2) mg/dL Est GFR ( Amer) Est GFR (Non-Af Amer) POC Glucose (mg/dL) 118 H 88 (65-110) mg/dL Random Glucose (65-105) mg/dL Calcium (8.6-10.4) mg/dl Phosphorus (2.5-4.5) mg/dL Magnesium (1.6-2.3) mg/dL Total Bilirubin (0.2-1.3) mg/dL AST (14-36) U/L ALT (9-52) U/L Alkaline Phosphatase (38-126) U/L Total Protein (6.3-8.3) g/dL Albumin (3.5-5.0) g/dL Globulin (2.2-3.9) gm/dL Albumin/Globulin Ratio (1.0-2.1) Urine Color (YELLOW) Urine Clarity (Clear) Urine pH (5.0-8.0) Ur Specific [place] (1.003-1.030) Urine Protein (NEGATIVE) mg/dL Urine Glucose (UA) (Normal) mg/dL Urine Ketones (NEGATIVE) mg/dL Urine Blood (NEGATIVE) Urine Nitrate (NEGATIVE) Urine Bilirubin (NEGATIVE) Urine Urobilinogen (0.2-1.0) mg/dL Ur Leukocyte Esterase (Negative) Raoul/uL Ur Squamous Epith Cells (0-5) /hpf Amorphous Sediment (<OCC) /ul Urine Bacteria (<OCC) Hepatitis A IgM Ab (NEGATIVE) Hep Bs Antigen (NEGATIVE) Hep B Core IgM Ab (NEGATIVE) Hepatitis C Antibody (NEGATIVE) HIV 1&2 Antibody Screen (NEGATIVE) Blood Type O POSITIVE Antibody Screen Positive Antibody Identification Anti c Antigen Identification c Antigen - NEGATIVE IRA, Poly Interpret Negative (NEGATIVE) Laboratory Results - last 24 hr 02/02/17 02/02/17 02/03/17 10:31 17:30 00:00 WBC RBC Hgb Hct MCV MCH MCHC RDW Plt Count MPV Neut % (Auto) Lymph % (Auto) [place] % (Auto) Eos % (Auto) Baso % (Auto) Neut # Lymph # [place] # Eos # Baso # Neutrophils % (Manual) Band Neutrophils % Lymphocytes % (Manual) Monocytes % (Manual) Basophils % (Manual) Platelet Estimate Large Platelets Hypochromasia (manual) Poikilocytosis (manual Anisocytosis (manual) Target Cells Tear Drop Cells Ovalocytes [place] Cells PT INR APTT Sodium Potassium Chloride Carbon Dioxide Anion Gap BUN Creatinine Est GFR ( Amer) Est GFR (Non-Af Amer) POC Glucose (mg/dL) 88 118 H Random Glucose Calcium Phosphorus Magnesium Total Bilirubin AST ALT Alkaline Phosphatase Total Protein Albumin Globulin Albumin/Globulin Ratio Urine Color Urine Clarity Urine pH Ur Specific [place] Urine Protein Urine Glucose (UA) Urine Ketones Urine Blood Urine Nitrate Urine Bilirubin Urine Urobilinogen Ur Leukocyte Esterase Ur Squamous Epith Cells Amorphous Sediment Urine Bacteria Hepatitis A IgM Ab Hep Bs Antigen Hep B Core IgM Ab Hepatitis C Antibody HIV 1&2 Antibody Screen Blood Type O POSITIVE Antibody Screen Positive Antibody Identification Anti c Antigen Identification c Antigen - NEGATIVE IRA, Poly Interpret Negative 02/03/17 02/03/17 02/03/17 05:15 06:05 06:05 WBC 10.5 D RBC 3.30 L Hgb 9.3 L Hct 27.1 L MCV 82.2 MCH 28.2 MCHC 34.3 RDW 15.7 H Plt Count 265 MPV 8.1 Neut % (Auto) 84.7 H Lymph % (Auto) 9.8 L [place] % (Auto) 5.1 Eos % (Auto) 0.1 Baso % (Auto) 0.3 Neut # 8.9 H Lymph # 1.0 [place] # 0.5 Eos # 0.0 Baso # 0.0 Neutrophils % (Manual) 84 H Band Neutrophils % 3 H Lymphocytes % (Manual) 7 L Monocytes % (Manual) 5 Basophils % (Manual) 1 Platelet Estimate Normal Large Platelets Present Hypochromasia (manual) Slight Poikilocytosis (manual Slight Anisocytosis (manual) Slight Target Cells Slight Tear Drop Cells Slight Ovalocytes Slight [place] Cells Slight PT INR APTT Sodium 129 L Potassium 4.0 Chloride 100 Carbon Dioxide 25 Anion Gap 8 L BUN 13 Creatinine 0.4 L Est GFR ( Amer) > 60 Est GFR (Non-Af Amer) > 60 POC Glucose (mg/dL) 131 H Random Glucose 139 H Calcium 7.3 L Phosphorus 3.5 Magnesium 1.7 Total Bilirubin 0.3 AST 21 ALT 32 Alkaline Phosphatase 88 Total Protein 6.1 L Albumin 2.7 L Globulin 3.4 Albumin/Globulin Ratio 0.8 L Urine Color Urine Clarity Urine pH Ur Specific [place] Urine Protein Urine Glucose (UA) Urine Ketones Urine Blood Urine Nitrate Urine Bilirubin Urine Urobilinogen Ur Leukocyte Esterase Ur Squamous Epith Cells Amorphous Sediment Urine Bacteria Hepatitis A IgM Ab Hep Bs Antigen Hep B Core IgM Ab Hepatitis C Antibody HIV 1&2 Antibody Screen Blood Type Antibody Screen Antibody Identification Antigen Identification IRA, Poly Interpret 02/03/17 02/03/17 02/03/17 11:19 12:09 12:09 WBC RBC Hgb Hct MCV MCH MCHC RDW Plt Count MPV Neut % (Auto) Lymph % (Auto) [place] % (Auto) Eos % (Auto) Baso % (Auto) Neut # Lymph # [place] # Eos # Baso # Neutrophils % (Manual) Band Neutrophils % Lymphocytes % (Manual) Monocytes % (Manual) Basophils % (Manual) Platelet Estimate Large Platelets Hypochromasia (manual) Poikilocytosis (manual Anisocytosis (manual) Target Cells Tear Drop Cells Ovalocytes [place] Cells PT 15.8 H INR 1.4 APTT 36 H Sodium Potassium Chloride Carbon Dioxide Anion Gap BUN Creatinine Est GFR ( Amer) Est GFR (Non-Af Amer) POC Glucose (mg/dL) 140 H Random Glucose Calcium Phosphorus Magnesium Total Bilirubin AST ALT Alkaline Phosphatase Total Protein Albumin Globulin Albumin/Globulin Ratio Urine Color Urine Clarity Urine pH Ur Specific [place] Urine Protein Urine Glucose (UA) Urine Ketones Urine Blood Urine Nitrate Urine Bilirubin Urine Urobilinogen Ur Leukocyte Esterase Ur Squamous Epith Cells Amorphous Sediment Urine Bacteria Hepatitis A IgM Ab Hep Bs Antigen Hep B Core IgM Ab Hepatitis C Antibody HIV 1&2 Antibody Screen Negative Blood Type Antibody Screen Antibody Identification Antigen Identification IRA, Poly Interpret 02/03/17 02/03/17 02/03/17 12:09 13:09 14:20 WBC 8.8 RBC 3.10 L Hgb 8.7 L Hct 25.5 L MCV 82.2 MCH 28.2 MCHC 34.3 RDW 15.0 H Plt Count 250 MPV 7.8 Neut % (Auto) 80.9 H Lymph % (Auto) 12.6 L [place] % (Auto) 5.7 Eos % (Auto) 0.3 Baso % (Auto) 0.5 Neut # 7.1 H Lymph # 1.1 [place] # 0.5 Eos # 0.0 Baso # 0.0 Neutrophils % (Manual) Band Neutrophils % Lymphocytes % (Manual) Monocytes % (Manual) Basophils % (Manual) Platelet Estimate Large Platelets Hypochromasia (manual) Poikilocytosis (manual Anisocytosis (manual) Target Cells Tear Drop Cells Ovalocytes [place] Cells PT INR APTT Sodium Potassium Chloride Carbon Dioxide Anion Gap BUN Creatinine Est GFR ( Amer) Est GFR (Non-Af Amer) POC Glucose (mg/dL) Random Glucose Calcium Phosphorus Magnesium Total Bilirubin AST ALT Alkaline Phosphatase Total Protein Albumin Globulin Albumin/Globulin Ratio Urine Color Nay Urine Clarity Hazy Urine pH 5.0 Ur Specific [place] 1.027 Urine Protein 2+ H Urine Glucose (UA) Normal Urine Ketones Negative Urine Blood Negative Urine Nitrate Negative Urine Bilirubin Negative Urine Urobilinogen Normal Ur Leukocyte Esterase Neg Ur Squamous Epith Cells 8 H Amorphous Sediment Occ H Urine Bacteria Occ H Hepatitis A IgM Ab Negative Hep Bs Antigen Negative Hep B Core IgM Ab Negative Hepatitis C Antibody Reactive HIV 1&2 Antibody Screen Blood Type Antibody Screen Antibody Identification Antigen Identification IRA, Poly Interpret EKG/Cardiology Studies: Cardiology / EKG Studies 02/02/17 15:54 EKG [ELECTROCARDIOGRAM] Routine Comment: Mode Of Transportation: Reason For Exam: postop Isolation: Contact Fingerstick Blood Sugar Results: 140 Assessment/Plan - Assessment and Plan (Free Text) Assessment: Patient is an 81 year old female presenting to the hospital with chest pain that needed to be intubated due to respiratory failure from hypercapnia. Patient was transferred to the ICU for further evaluation. Plan Neuro: History of Seizures: Keppra 750mg PO BID Sedation: Propofol 5mcg/kg/min Pain: 1 mg morphine Psych: history of Szhizophrenia Haldol 1mg Q12H Ativan 0.5mg Q6H PRN Cardio: 01/08 Echo: Grade I abnormal relaxation pattern. global hypokinesis, systolic function is mild to moderately reduced. Left atrium is mildly dilated. severe pulmonary HTN. mildly dilated left atrium, severe left ventricular dysfunction. EF 37% Cardio Consult: Dr. Crowell 01/25 BNP ASA 81mg POQD Enlapril 2.5mg POQD -increased to 5mg 01/26 Cardizem 30mg POQID Metoprolol tartrate 25mg POBID Enlapril 5mg POQD Pulm: 02/02: Trach placed by surgery. Evaluated at bedside - no signs of gross infection, tolerated procedure well 01/26 CXR: increased pleural effusions Vent Settings:450///50% 01/25 ABG: pH 7.53/ pO2 127/ pCO2 26/ pHCO3 25.2 01/26 ABG: pH 7.51/ pCO2 32/ pO2 108/ pHCO3 27.0 01/27/17 05:11 pH 7.49 35, 84, 27.5, Vent Settings CPAP 50% 21/06 01/27 CPAP trials today 01/28 daily CPAP trials 01/28 ABG: pH 7.44, pCO2 35, pO2 171, pHCO3 22.9, PRVC RR 12, PEEP 5, FiO2 50%, TV 400, 01/29 ABG: pH 7. 49, pCO2 35, pO2 77, pHCO3 27.6, PRVC RR 12, PEEP 5, FiO2 40%, TV 400 01/30 ABG: pH 7.43, pCO2 40, pO2 131, pHCO3 26.5, PRVC RR 12, PEEP 5, FiO2 40%, TV 400 01/31 ABG: pH 7.46, pCO2 39, pO2 132, pHCO3 27.7, PRVC RR 12, PEEP 5, FiO2 40%, TV 400 02/01 ABG: pH 7.45, pCO2 41, pO2 157, pHCO3 28.1, PRVC RR 12, PEEP 5, FiO2 40%, TV 400 02/02 ABG: pH 7.46, pCO2 38, pO2, 147, pHCO3 27.3, PRVC RR 12. PEEP 5, FIO2 40% , TV 400 01/26 CXR: increased pleural effusions Albuterol 1.25mg INH RQ6H SCOTTY Lasix 40mg IVP STAT Endo: Hypothyroid Diabetes Novolin hold Levothyroxine 25mcgPOQD Insulin SCQ6H low dose sliding scale ISS low dose q6h Glucerna 1.5 initiate 20cc/hr, increase by 5cc/hr, goal rate 35cc/hr GI: Surgery consulted for PEG Tube evaluation. Breakthrough bleeding seen at PEG Tube - suspect blood is old. Discussed case with Dr. Hunter who recommends starting tube feeds this afternoon. Plan is to have patient tolerate tube feeds for 24 hours and the ndischarge to LTAC. : n/a Renal: I/O: 1853.5/550 = 1303.5 24 UOP 725cc/hr 01/25 repleted potassium 02/03: Occult urine bacteria Per Dr. Love: recommends changing to straight cath from Depop Heme/Onc: Iron deficiency anemia 01/25 H/H: 10.0/29.9 01/26 H/H 9.7/29.0 01/27 H/H: 9.0/.7 01/28 H/H: 8.7/25.7 01/29 9.0/.7 01/30 01/31 02/01 8.3/25.1 02/02 7.8/23.7 02/03 9.3/27.1 02/03 PT 15.8, INR 1.4, PTT 36 Transfused 1 unit of PRBC on 02/02 Iron 10 TIBC 209 % 4.78 Ferrlecit 125mg IVPB QD MSK: n/a ID: 01/25 WBC 5.0 from 7.2 f/u AM CBC 02/03: Hep C Reactive antibody 01/30 ESR 90 01/27: VRE 01/18: E. Coli ESBL Nystatin 1 top BID Tylenol 650mg POQ6H Linezolid 600 mg/300ml D5w Prophylaxis: DVT: Lovenox 40mg SC QD GI: Protonix 40mg IVP QD PICC Catheter recommended. Two ports of L IJ TLC unaccessible. Folic Acid 1mg PO daily Florastor 250mg PO BID <Latef,Geovany M - Last Filed: 02/03/17 18:56> CCU Objective - Vital Signs / Intake & Output Vital Signs (Last 4 hours): Vital Signs Pulse Resp BP Pulse Ox 02/03/17 18:03 138/66 02/03/17 17:01 94 H 12 135/67 100 02/03/17 17:00 96 H 15 100 02/03/17 16:01 94 H 22 133/65 100 02/03/17 15:01 94 H 12 131/62 100 Intake and Output (Last 8hrs): Intake & Output 02/03/17 02/03/17 02/03/17 06:59 14:59 22:59 Intake Total 581 500 Output Total 100 0 Balance 481 500 Weight 119 lb 0.794 oz Intake: Intake, IV Amount 550 500 Left Distal Port Internal 500 Jugular Left Proximal Port 550 Internal Jugular Blood Product 31 Output: Urine 100 0 Urine, Voided 100 0 Other: # Voids Urine, Voided 1 - Medications Active Medications: Active Medications Generic Name Dose Route Start Last Admin Trade Name Freq PRN Reason Stop Dose Admin Acetaminophen 650 mg 01/17/17 21:49 01/18/17 15:23 Tylenol 325mg Tab PO 650 mg Q6 PRN Administration Pain, moderate (4-7) Albuterol/Ipratropium 3 ml 01/31/17 20:00 02/03/17 14:00 Duoneb 3 Mg/0.5 Mg (3 Ml) Ud INH 3 ml RQ6 SCOTTY Administration Aspirin 81 mg 01/28/17 10:00 02/03/17 09:07 Aspirin Chewable PO Not Given DAILY [facility] Enalapril Maleate 5 mg 01/26/17 12:45 02/03/17 09:08 Vasotec PO Not Given DAILY [facility] Enoxaparin Sodium 40 mg 02/01/17 10:00 02/02/17 10:20 Lovenox SC Not Given DAILY SCOTTY Levetiracetam 750 mg/ Sodium 107.5 mls @ 420 mls/hr 01/27/17 13:00 02/03/17 13:11 Chloride IVPB 420 mls/hr Q12H SCOTTY Administration Linezolid 600 mg in 300 mls @ 200 mls/hr 01/29/17 22:00 02/03/17 10:38 Zyvox 600mg/300ml D5w IVPB 200 mls/hr Q12 SCOTTY Administration Aztreonam 1 gm/ Sodium 100 mls @ 100 mls/hr 01/31/17 10:00 02/03/17 17:58 Chloride IVPB 100 mls/hr Q8H SCOTTY Administration Insulin Aspart 0 unit 01/25/17 12:00 02/03/17 18:25 Novolog SC Not Given Q6 [facility] Protocol Insulin Glargine 20 unit 01/25/17 22:00 02/01/17 22:30 Lantus SC Not Given HS [facility] Levothyroxine Sodium 25 mcg 01/18/17 06:30 02/03/17 05:39 Synthroid PO Not Given DAILY@0630 [facility] Lorazepam 2 mg 02/02/17 20:29 Ativan IVP Q6H PRN Anxiety Metoprolol Tartrate 25 mg 01/26/17 18:00 02/03/17 18:03 Lopressor PO 25 mg BID [facility] Administration Morphine Sulfate 1 mg 02/03/17 14:53 02/03/17 17:58 Morphine IVP 1 mg Q4 PRN Administration Pain, moderate (4-7) Nystatin 1 applic 01/24/17 18:00 02/03/17 18:04 Nystop Topical Powder TOP 1 applic BID [facility] Administration Pantoprazole Sodium 40 mg 02/03/17 10:00 02/03/17 14:20 Protonix Inj IVP 40 mg DAILY [facility] Administration Rosuvastatin Calcium 20 mg 01/18/17 22:00 02/02/17 21:31 Crestor PO Not Given HS [facility] - Patient Studies Lab Studies: Microbiology Studies 01/29/17 21:00 Blood Culture - Preliminary Blood-Thru Central Line NO GROWTH AFTER 4 DAYS 01/29/17 21:00 Blood Culture - Preliminary Blood-Thru Central Line NO GROWTH AFTER 4 DAYS Lab Studies 02/03/17 02/03/17 02/03/17 Range/Units 17:42 14:20 13:09 WBC 8.8 (4.8-10.8) K/uL RBC 3.10 L (3.80-5.20) Mil/uL Hgb 8.7 L (11.0-16.0) g/dL Hct 25.5 L (34.0-47.0) % MCV 82.2 (81.0-99.0) fL MCH 28.2 (27.0-31.0) pg MCHC 34.3 (33.0-37.0) g/dL RDW 15.0 H (11.5-14.5) % Plt Count 250 (130-400) K/uL MPV 7.8 (7.2-11.7) fL Neut % (Auto) 80.9 H (50.0-75.0) % Lymph % (Auto) 12.6 L (20.0-40.0) % [place] % (Auto) 5.7 (0.0-10.0) % Eos % (Auto) 0.3 (0.0-4.0) % Baso % (Auto) 0.5 (0.0-2.0) % Neut # 7.1 H (1.8-7.0) K/uL Lymph # 1.1 (1.0-4.3) K/uL [place] # 0.5 (0.0-0.8) K/uL Eos # 0.0 (0.0-0.7) K/uL Baso # 0.0 (0.0-0.2) K/uL Neutrophils % (Manual) (50-75) % Band Neutrophils % (0-2) % Lymphocytes % (Manual) (20-40) % Monocytes % (Manual) (0-10) % Basophils % (Manual) (0-2) % Platelet Estimate (NORMAL) Large Platelets Hypochromasia (manual) Poikilocytosis (manual Anisocytosis (manual) Target Cells Tear Drop Cells Ovalocytes [place] Cells PT (9.7-12.2) SECONDS INR APTT (21-34) SECONDS Sodium (132-148) mmol/L Potassium (3.6-5.2) mmol/L Chloride (98-107) mmol/L Carbon Dioxide (22-30) mmol/L Anion Gap (10-20) BUN (7-17) mg/dL Creatinine (0.7-1.2) mg/dL Est GFR ( Amer) Est GFR (Non-Af Amer) POC Glucose (mg/dL) 162 H (65-110) mg/dL Random Glucose (65-105) mg/dL Calcium (8.6-10.4) mg/dl Phosphorus (2.5-4.5) mg/dL Magnesium (1.6-2.3) mg/dL Total Bilirubin (0.2-1.3) mg/dL AST (14-36) U/L ALT (9-52) U/L Alkaline Phosphatase (38-126) U/L Total Protein (6.3-8.3) g/dL Albumin (3.5-5.0) g/dL Globulin (2.2-3.9) gm/dL Albumin/Globulin Ratio (1.0-2.1) Urine Color Nay (YELLOW) Urine Clarity Hazy (Clear) Urine pH 5.0 (5.0-8.0) Ur Specific [place] 1.027 (1.003-1.030) Urine Protein 2+ H (NEGATIVE) mg/dL Urine Glucose (UA) Normal (Normal) mg/dL Urine Ketones Negative (NEGATIVE) mg/dL Urine Blood Negative (NEGATIVE) Urine Nitrate Negative (NEGATIVE) Urine Bilirubin Negative (NEGATIVE) Urine Urobilinogen Normal (0.2-1.0) mg/dL Ur Leukocyte Esterase Neg (Negative) Raoul/uL Ur Squamous Epith Cells 8 H (0-5) /hpf Amorphous Sediment Occ H (<OCC) /ul Urine Bacteria Occ H (<OCC) Hepatitis A IgM Ab (NEGATIVE) Hep Bs Antigen (NEGATIVE) Hep B Core IgM Ab (NEGATIVE) Hepatitis C Antibody (NEGATIVE) HIV 1&2 Antibody Screen (NEGATIVE) Blood Type Antibody Screen Antibody Identification Antigen Identification IRA, Poly Interpret (NEGATIVE) 02/03/17 02/03/17 02/03/17 Range/Units 12:09 12:09 12:09 WBC (4.8-10.8) K/uL RBC (3.80-5.20) Mil/uL Hgb (11.0-16.0) g/dL Hct (34.0-47.0) % MCV (81.0-99.0) fL MCH (27.0-31.0) pg MCHC (33.0-37.0) g/dL RDW (11.5-14.5) % Plt Count (130-400) K/uL MPV (7.2-11.7) fL Neut % (Auto) (50.0-75.0) % Lymph % (Auto) (20.0-40.0) % [place] % (Auto) (0.0-10.0) % Eos % (Auto) (0.0-4.0) % Baso % (Auto) (0.0-2.0) % Neut # (1.8-7.0) K/uL Lymph # (1.0-4.3) K/uL [place] # (0.0-0.8) K/uL Eos # (0.0-0.7) K/uL Baso # (0.0-0.2) K/uL Neutrophils % (Manual) (50-75) % Band Neutrophils % (0-2) % Lymphocytes % (Manual) (20-40) % Monocytes % (Manual) (0-10) % Basophils % (Manual) (0-2) % Platelet Estimate (NORMAL) Large Platelets Hypochromasia (manual) Poikilocytosis (manual Anisocytosis (manual) Target Cells Tear Drop Cells Ovalocytes [place]ia Cells PT 15.8 H (9.7-12.2) SECONDS INR 1.4 APTT 36 H (21-34) SECONDS Sodium (132-148) mmol/L Potassium (3.6-5.2) mmol/L Chloride (98-107) mmol/L Carbon Dioxide (22-30) mmol/L Anion Gap (10-20) BUN (7-17) mg/dL Creatinine (0.7-1.2) mg/dL Est GFR ( Amer) Est GFR (Non-Af Amer) POC Glucose (mg/dL) (65-110) mg/dL Random Glucose (65-105) mg/dL Calcium (8.6-10.4) mg/dl Phosphorus (2.5-4.5) mg/dL Magnesium (1.6-2.3) mg/dL Total Bilirubin (0.2-1.3) mg/dL AST (14-36) U/L ALT (9-52) U/L Alkaline Phosphatase (38-126) U/L Total Protein (6.3-8.3) g/dL Albumin (3.5-5.0) g/dL Globulin (2.2-3.9) gm/dL Albumin/Globulin Ratio (1.0-2.1) Urine Color (YELLOW) Urine Clarity (Clear) Urine pH (5.0-8.0) Ur Specific [place] (1.003-1.030) Urine Protein (NEGATIVE) mg/dL Urine Glucose (UA) (Normal) mg/dL Urine Ketones (NEGATIVE) mg/dL Urine Blood (NEGATIVE) Urine Nitrate (NEGATIVE) Urine Bilirubin (NEGATIVE) Urine Urobilinogen (0.2-1.0) mg/dL Ur Leukocyte Esterase (Negative) Raoul/uL Ur Squamous Epith Cells (0-5) /hpf Amorphous Sediment (<OCC) /ul Urine Bacteria (<OCC) Hepatitis A IgM Ab Negative (NEGATIVE) Hep Bs Antigen Negative (NEGATIVE) Hep B Core IgM Ab Negative (NEGATIVE) Hepatitis C Antibody Reactive (NEGATIVE) HIV 1&2 Antibody Screen Negative (NEGATIVE) Blood Type Antibody Screen Antibody Identification Antigen Identification IRA, Poly Interpret (NEGATIVE) 02/03/17 02/03/17 02/03/17 Range/Units 11:19 06:05 06:05 WBC 10.5 D (4.8-10.8) K/uL RBC 3.30 L (3.80-5.20) Mil/uL Hgb 9.3 L (11.0-16.0) g/dL Hct 27.1 L (34.0-47.0) % MCV 82.2 (81.0-99.0) fL MCH 28.2 (27.0-31.0) pg MCHC 34.3 (33.0-37.0) g/dL RDW 15.7 H (11.5-14.5) % Plt Count 265 (130-400) K/uL MPV 8.1 (7.2-11.7) fL Neut % (Auto) 84.7 H (50.0-75.0) % Lymph % (Auto) 9.8 L (20.0-40.0) % [place] % (Auto) 5.1 (0.0-10.0) % Eos % (Auto) 0.1 (0.0-4.0) % Baso % (Auto) 0.3 (0.0-2.0) % Neut # 8.9 H (1.8-7.0) K/uL Lymph # 1.0 (1.0-4.3) K/uL [place] # 0.5 (0.0-0.8) K/uL Eos # 0.0 (0.0-0.7) K/uL Baso # 0.0 (0.0-0.2) K/uL Neutrophils % (Manual) 84 H (50-75) % Band Neutrophils % 3 H (0-2) % Lymphocytes % (Manual) 7 L (20-40) % Monocytes % (Manual) 5 (0-10) % Basophils % (Manual) 1 (0-2) % Platelet Estimate Normal (NORMAL) Large Platelets Present Hypochromasia (manual) Slight Poikilocytosis (manual Slight Anisocytosis (manual) Slight Target Cells Slight Tear Drop Cells Slight Ovalocytes Slight [place] Cells Slight PT (9.7-12.2) SECONDS INR APTT (21-34) SECONDS Sodium 129 L (132-148) mmol/L Potassium 4.0 (3.6-5.2) mmol/L Chloride 100 (98-107) mmol/L Carbon Dioxide 25 (22-30) mmol/L Anion Gap 8 L (10-20) BUN 13 (7-17) mg/dL Creatinine 0.4 L (0.7-1.2) mg/dL Est GFR ( Amer) > 60 Est GFR (Non-Af Amer) > 60 POC Glucose (mg/dL) 140 H (65-110) mg/dL Random Glucose 139 H (65-105) mg/dL Calcium 7.3 L (8.6-10.4) mg/dl Phosphorus 3.5 (2.5-4.5) mg/dL Magnesium 1.7 (1.6-2.3) mg/dL Total Bilirubin 0.3 (0.2-1.3) mg/dL AST 21 (14-36) U/L ALT 32 (9-52) U/L Alkaline Phosphatase 88 (38-126) U/L Total Protein 6.1 L (6.3-8.3) g/dL Albumin 2.7 L (3.5-5.0) g/dL Globulin 3.4 (2.2-3.9) gm/dL Albumin/Globulin Ratio 0.8 L (1.0-2.1) Urine Color (YELLOW) Urine Clarity (Clear) Urine pH (5.0-8.0) Ur Specific [place] (1.003-1.030) Urine Protein (NEGATIVE) mg/dL Urine Glucose (UA) (Normal) mg/dL Urine Ketones (NEGATIVE) mg/dL Urine Blood (NEGATIVE) Urine Nitrate (NEGATIVE) Urine Bilirubin (NEGATIVE) Urine Urobilinogen (0.2-1.0) mg/dL Ur Leukocyte Esterase (Negative) Raoul/uL Ur Squamous Epith Cells (0-5) /hpf Amorphous Sediment (<OCC) /ul Urine Bacteria (<OCC) Hepatitis A IgM Ab (NEGATIVE) Hep Bs Antigen (NEGATIVE) Hep B Core IgM Ab (NEGATIVE) Hepatitis C Antibody (NEGATIVE) HIV 1&2 Antibody Screen (NEGATIVE) Blood Type Antibody Screen Antibody Identification Antigen Identification IRA, Poly Interpret (NEGATIVE) 02/03/17 02/03/17 02/02/17 Range/Units 05:15 00:00 10:31 WBC (4.8-10.8) K/uL RBC (3.80-5.20) Mil/uL Hgb (11.0-16.0) g/dL Hct (34.0-47.0) % MCV (81.0-99.0) fL MCH (27.0-31.0) pg MCHC (33.0-37.0) g/dL RDW (11.5-14.5) % Plt Count (130-400) K/uL MPV (7.2-11.7) fL Neut % (Auto) (50.0-75.0) % Lymph % (Auto) (20.0-40.0) % [place] % (Auto) (0.0-10.0) % Eos % (Auto) (0.0-4.0) % Baso % (Auto) (0.0-2.0) % Neut # (1.8-7.0) K/uL Lymph # (1.0-4.3) K/uL [place] # (0.0-0.8) K/uL Eos # (0.0-0.7) K/uL Baso # (0.0-0.2) K/uL Neutrophils % (Manual) (50-75) % Band Neutrophils % (0-2) % Lymphocytes % (Manual) (20-40) % Monocytes % (Manual) (0-10) % Basophils % (Manual) (0-2) % Platelet Estimate (NORMAL) Large Platelets Hypochromasia (manual) Poikilocytosis (manual Anisocytosis (manual) Target Cells Tear Drop Cells Ovalocytes [place] Cells PT (9.7-12.2) SECONDS INR APTT (21-34) SECONDS Sodium (132-148) mmol/L Potassium (3.6-5.2) mmol/L Chloride (98-107) mmol/L Carbon Dioxide (22-30) mmol/L Anion Gap (10-20) BUN (7-17) mg/dL Creatinine (0.7-1.2) mg/dL Est GFR ( Amer) Est GFR (Non-Af Amer) POC Glucose (mg/dL) 131 H 118 H (65-110) mg/dL Random Glucose (65-105) mg/dL Calcium (8.6-10.4) mg/dl Phosphorus (2.5-4.5) mg/dL Magnesium (1.6-2.3) mg/dL Total Bilirubin (0.2-1.3) mg/dL AST (14-36) U/L ALT (9-52) U/L Alkaline Phosphatase (38-126) U/L Total Protein (6.3-8.3) g/dL Albumin (3.5-5.0) g/dL Globulin (2.2-3.9) gm/dL Albumin/Globulin Ratio (1.0-2.1) Urine Color (YELLOW) Urine Clarity (Clear) Urine pH (5.0-8.0) Ur Specific [place] (1.003-1.030) Urine Protein (NEGATIVE) mg/dL Urine Glucose (UA) (Normal) mg/dL Urine Ketones (NEGATIVE) mg/dL Urine Blood (NEGATIVE) Urine Nitrate (NEGATIVE) Urine Bilirubin (NEGATIVE) Urine Urobilinogen (0.2-1.0) mg/dL Ur Leukocyte Esterase (Negative) Raoul/uL Ur Squamous Epith Cells (0-5) /hpf Amorphous Sediment (<OCC) /ul Urine Bacteria (<OCC) Hepatitis A IgM Ab (NEGATIVE) Hep Bs Antigen (NEGATIVE) Hep B Core IgM Ab (NEGATIVE) Hepatitis C Antibody (NEGATIVE) HIV 1&2 Antibody Screen (NEGATIVE) Blood Type O POSITIVE Antibody Screen Positive Antibody Identification Anti c Antigen Identification c Antigen - NEGATIVE IRA, Poly Interpret Negative (NEGATIVE) Laboratory Results - last 24 hr 02/02/17 02/03/17 02/03/17 10:31 00:00 05:15 WBC RBC Hgb Hct MCV MCH MCHC RDW Plt Count MPV Neut % (Auto) Lymph % (Auto) [place] % (Auto) Eos % (Auto) Baso % (Auto) Neut # Lymph # [place] # Eos # Baso # Neutrophils % (Manual) Band Neutrophils % Lymphocytes % (Manual) Monocytes % (Manual) Basophils % (Manual) Platelet Estimate Large Platelets Hypochromasia (manual) Poikilocytosis (manual Anisocytosis (manual) Target Cells Tear Drop Cells Ovalocytes [place] Cells PT INR APTT Sodium Potassium Chloride Carbon Dioxide Anion Gap BUN Creatinine Est GFR ( Amer) Est GFR (Non-Af Amer) POC Glucose (mg/dL) 118 H 131 H Random Glucose Calcium Phosphorus Magnesium Total Bilirubin AST ALT Alkaline Phosphatase Total Protein Albumin Globulin Albumin/Globulin Ratio Urine Color Urine Clarity Urine pH Ur Specific [place] Urine Protein Urine Glucose (UA) Urine Ketones Urine Blood Urine Nitrate Urine Bilirubin Urine Urobilinogen Ur Leukocyte Esterase Ur Squamous Epith Cells Amorphous Sediment Urine Bacteria Hepatitis A IgM Ab Hep Bs Antigen Hep B Core IgM Ab Hepatitis C Antibody HIV 1&2 Antibody Screen Blood Type O POSITIVE Antibody Screen Positive Antibody Identification Anti c Antigen Identification c Antigen - NEGATIVE IRA, Poly Interpret Negative 02/03/17 02/03/17 02/03/17 06:05 06:05 11:19 WBC 10.5 D RBC 3.30 L Hgb 9.3 L Hct 27.1 L MCV 82.2 MCH 28.2 MCHC 34.3 RDW 15.7 H Plt Count 265 MPV 8.1 Neut % (Auto) 84.7 H Lymph % (Auto) 9.8 L [place] % (Auto) 5.1 Eos % (Auto) 0.1 Baso % (Auto) 0.3 Neut # 8.9 H Lymph # 1.0 [place] # 0.5 Eos # 0.0 Baso # 0.0 Neutrophils % (Manual) 84 H Band Neutrophils % 3 H Lymphocytes % (Manual) 7 L Monocytes % (Manual) 5 Basophils % (Manual) 1 Platelet Estimate Normal Large Platelets Present Hypochromasia (manual) Slight Poikilocytosis (manual Slight Anisocytosis (manual) Slight Target Cells Slight Tear Drop Cells Slight Ovalocytes Slight [place] Cells Slight PT INR APTT Sodium 129 L Potassium 4.0 Chloride 100 Carbon Dioxide 25 Anion Gap 8 L BUN 13 Creatinine 0.4 L Est GFR ( Amer) > 60 Est GFR (Non-Af Amer) > 60 POC Glucose (mg/dL) 140 H Random Glucose 139 H Calcium 7.3 L Phosphorus 3.5 Magnesium 1.7 Total Bilirubin 0.3 AST 21 ALT 32 Alkaline Phosphatase 88 Total Protein 6.1 L Albumin 2.7 L Globulin 3.4 Albumin/Globulin Ratio 0.8 L Urine Color Urine Clarity Urine pH Ur Specific [place] Urine Protein Urine Glucose (UA) Urine Ketones Urine Blood Urine Nitrate Urine Bilirubin Urine Urobilinogen Ur Leukocyte Esterase Ur Squamous Epith Cells Amorphous Sediment Urine Bacteria Hepatitis A IgM Ab Hep Bs Antigen Hep B Core IgM Ab Hepatitis C Antibody HIV 1&2 Antibody Screen Blood Type Antibody Screen Antibody Identification Antigen Identification IRA, Poly Interpret 02/03/17 02/03/17 02/03/17 12:09 12:09 12:09 WBC RBC Hgb Hct MCV MCH MCHC RDW Plt Count MPV Neut % (Auto) Lymph % (Auto) [place] % (Auto) Eos % (Auto) Baso % (Auto) Neut # Lymph # [place] # Eos # Baso # Neutrophils % (Manual) Band Neutrophils % Lymphocytes % (Manual) Monocytes % (Manual) Basophils % (Manual) Platelet Estimate Large Platelets Hypochromasia (manual) Poikilocytosis (manual Anisocytosis (manual) Target Cells Tear Drop Cells Ovalocytes [place] Cells PT 15.8 H INR 1.4 APTT 36 H Sodium Potassium Chloride Carbon Dioxide Anion Gap BUN Creatinine Est GFR ( Amer) Est GFR (Non-Af Amer) POC Glucose (mg/dL) Random Glucose Calcium Phosphorus Magnesium Total Bilirubin AST ALT Alkaline Phosphatase Total Protein Albumin Globulin Albumin/Globulin Ratio Urine Color Urine Clarity Urine pH Ur Specific [place] Urine Protein Urine Glucose (UA) Urine Ketones Urine Blood Urine Nitrate Urine Bilirubin Urine Urobilinogen Ur Leukocyte Esterase Ur Squamous Epith Cells Amorphous Sediment Urine Bacteria Hepatitis A IgM Ab Negative Hep Bs Antigen Negative Hep B Core IgM Ab Negative Hepatitis C Antibody Reactive HIV 1&2 Antibody Screen Negative Blood Type Antibody Screen Antibody Identification Antigen Identification IRA, Poly Interpret 02/03/17 02/03/17 02/03/17 13:09 14:20 17:42 WBC 8.8 RBC 3.10 L Hgb 8.7 L Hct 25.5 L MCV 82.2 MCH 28.2 MCHC 34.3 RDW 15.0 H Plt Count 250 MPV 7.8 Neut % (Auto) 80.9 H Lymph % (Auto) 12.6 L [place] % (Auto) 5.7 Eos % (Auto) 0.3 Baso % (Auto) 0.5 Neut # 7.1 H Lymph # 1.1 [place] # 0.5 Eos # 0.0 Baso # 0.0 Neutrophils % (Manual) Band Neutrophils % Lymphocytes % (Manual) Monocytes % (Manual) Basophils % (Manual) Platelet Estimate Large Platelets Hypochromasia (manual) Poikilocytosis (manual Anisocytosis (manual) Target Cells Tear Drop Cells Ovalocytes [place] Cells PT INR APTT Sodium Potassium Chloride Carbon Dioxide Anion Gap BUN Creatinine Est GFR ( Amer) Est GFR (Non-Af Amer) POC Glucose (mg/dL) 162 H Random Glucose Calcium Phosphorus Magnesium Total Bilirubin AST ALT Alkaline Phosphatase Total Protein Albumin Globulin Albumin/Globulin Ratio Urine Color Nay Urine Clarity Hazy Urine pH 5.0 Ur Specific [place] 1.027 Urine Protein 2+ H Urine Glucose (UA) Normal Urine Ketones Negative Urine Blood Negative Urine Nitrate Negative Urine Bilirubin Negative Urine Urobilinogen Normal Ur Leukocyte Esterase Neg Ur Squamous Epith Cells 8 H Amorphous Sediment Occ H Urine Bacteria Occ H Hepatitis A IgM Ab Hep Bs Antigen Hep B Core IgM Ab Hepatitis C Antibody HIV 1&2 Antibody Screen Blood Type Antibody Screen Antibody Identification Antigen Identification IRA, Poly Interpret Attending/Attestation - Attestation I have personally seen and examined this patient.: Yes I have fully participated in the care of the patient.: Yes I have reviewed all pertinent clinical information: Yes Notes (Text): 02/03/17 18:55 Today: January The Patient was seen and examined at the bedside, Medical records reviewed, and management issues were discussed and formulated with the house staff. I have reviewed all the relevant clinical, laboratory, hemodynamic, radiographic data and medications Events reviewed Pain issues, skin care, head of the bed elevation, glycemic control were addressed. Agree with above resident's assessment and treatment plans of care as transcribed in Dr. Garcia note.
[2017-02-03 15:34] LABS: HEPATITIS C ANTIBODY Reactive (NEGATIVE)
--- NOTE | 2017-02-03 15:44 | CP.PCM.PN ---
Subjective - Date & Time of Evaluation Date of Evaluation: 02/03/17 Time of Evaluation: 10:15 - Subjective Subjective: Patient seen and examined Status post tracheostomy and PEG insertion On ventilatory support Open eyes to stimuli Afebrile Objective - Vital Signs/Intake and Output Vital Signs (last 24 hours): Temp Pulse Resp BP Pulse Ox 98.6 F 97 H 13 131/64 100 02/03/17 12:00 02/03/17 14:01 02/03/17 14:01 02/03/17 14:01 02/03/17 14:01 Intake and Output: 02/03/17 02/03/17 06:59 18:59 Intake Total 1168.5 500 Output Total 200 0 Balance 968.5 500 - Medications Medications: Current Medications Acetaminophen (Tylenol 325mg Tab) 650 mg PO Q6 PRN PRN Reason: Pain, moderate (4-7) Last Admin: 01/18/17 15:23 Dose: 650 mg Albuterol/Ipratropium (Duoneb 3 Mg/0.5 Mg (3 Ml) Ud) 3 ml INH RQ6 [facility] Last Admin: 02/03/17 14:00 Dose: 3 ml Aspirin (Aspirin Chewable) 81 mg PO DAILY [facility] Last Admin: 02/03/17 09:07 Dose: Not Given Enalapril Maleate (Vasotec) 5 mg PO DAILY [facility] Last Admin: 02/03/17 09:08 Dose: Not Given Enoxaparin Sodium (Lovenox) 40 mg SC DAILY [facility] Last Admin: 02/02/17 10:20 Dose: Not Given Levetiracetam 750 mg/ Sodium (Chloride) 107.5 mls @ 420 mls/hr IVPB Q12H [facility] Last Admin: 02/03/17 13:11 Dose: 420 mls/hr Linezolid (Zyvox 600mg/300ml D5w) 600 mg in 300 mls @ 200 mls/hr IVPB Q12 [facility] Last Admin: 02/03/17 10:38 Dose: 200 mls/hr Aztreonam 1 gm/ Sodium (Chloride) 100 mls @ 100 mls/hr IVPB Q8H [facility] Last Admin: 02/03/17 09:08 Dose: 100 mls/hr Insulin Aspart (Novolog) 0 unit SC Q6 [facility] PRN Reason: Protocol Last Admin: 02/03/17 11:34 Dose: Not Given Insulin Glargine (Lantus) 20 unit SC [facility] Last Admin: 02/01/17 22:30 Dose: Not Given Levothyroxine Sodium (Synthroid) 25 mcg PO DAILY@0630 [facility] Last Admin: 02/03/17 05:39 Dose: Not Given Lorazepam (Ativan) 2 mg IVP Q6H PRN PRN Reason: Anxiety Metoprolol Tartrate (Lopressor) 25 mg PO BID [facility] Last Admin: 02/03/17 09:09 Dose: Not Given Morphine Sulfate (Morphine) 1 mg IVP Q4 PRN PRN Reason: Pain, moderate (4-7) Nystatin (Nystop Topical Powder) 1 applic TOP BID [facility] Last Admin: 02/03/17 09:08 Dose: 1 applic Pantoprazole Sodium (Protonix Inj) 40 mg IVP DAILY [facility] Last Admin: 02/03/17 14:20 Dose: 40 mg Rosuvastatin Calcium (Crestor) 20 mg PO [facility] Last Admin: 02/02/17 21:31 Dose: Not Given - Labs Labs: 02/03/17 14:20 02/03/17 06:05 PT 15.8 SECONDS (9.7-12.2) H 02/03/17 12:09 INR 1.4 02/03/17 12:09 APTT 36 SECONDS (21-34) H 02/03/17 12:09 - Head Exam Head Exam: ATRAUMATIC, NORMOCEPHALIC - ENT Exam ENT Exam: Mucous Membranes Moist - Neck Exam Neck Exam: Normal Inspection - Respiratory Exam Respiratory Exam: Decreased Breath Sounds - Cardiovascular Exam Cardiovascular Exam: REGULAR RHYTHM - GI/Abdominal Exam GI & Abdominal Exam: Soft Assessment and Plan (1) Respiratory failure Status: Acute (2) Pneumonia Status: Acute
--- NOTE | 2017-02-03 15:48 | CARD ---
APPROVED REPORT EKG Measurement Heart [id number] <Conclusion> Normal sinus rhythm Normal ECG
--- NOTE | 2017-02-03 18:53 | PN ---
DATE: SUBJECTIVE: Patient is currently sedated on a ventilator. She is on assist control, FiO2 at 40%. PHYSICAL EXAMINATION: VITAL SIGNS: Blood pressure 133/67, heart rate 115, temperature 98.6, respirations 12. HEENT: Pale conjunctivae. CHEST: Bilateral rhonchi. HEART: S1 and S2 regular. EXTREMITIES: Contracture deformity. LABORATORY DATA: SMA-7: Sodium 129, potassium 4, chloride 100, CO2 of 25, glucose 139, BUN 15, creatinine 0.4. Hemoglobin and hematocrit 9.3 and 27.1, white count and platelet count are within normal limits. Today's INR is 1.4, PTT 36. ASSESSMENT: 1. Respiratory failure. 2. Status post tracheostomy and gastrostomy feeding tube placement. 3. Anemia, the patient did receive 1 unit of O-positive packed red blood cells yesterday. 4. History of supraventricular tachycardia. RECOMMENDATIONS: Continue Ativan at 2 mg intravenously q. 6 hours p.r.n. Oral medications are on hold because of the gastrostomy tube . Continue IV Zyvox at 600 mg q. 12 hours and albuterol inhaler q. 6 hours. Florian Crowell MD
--- NOTE | 2017-02-03 19:46 | CP.PCM.PN ---
Subjective - Date & Time of Evaluation Date of Evaluation: 02/03/17 Time of Evaluation: 19:00 - Subjective Subjective: Patient seen and examined Status post tracheostomy and PEG insertion On ventilatory support Open eyes to stimuli Afebrile Objective - Vital Signs/Intake and Output Vital Signs (last 24 hours): Temp Pulse Resp BP Pulse Ox 98.6 F 94 H 12 138/66 100 02/03/17 12:00 02/03/17 17:01 02/03/17 17:01 02/03/17 18:03 02/03/17 17:01 Intake and Output: 02/03/17 02/04/17 18:59 06:59 Intake Total 500 Output Total 0 Balance 500 - Medications Medications: Current Medications Acetaminophen (Tylenol 325mg Tab) 650 mg PO Q6 PRN PRN Reason: Pain, moderate (4-7) Last Admin: 01/18/17 15:23 Dose: 650 mg Albuterol/Ipratropium (Duoneb 3 Mg/0.5 Mg (3 Ml) Ud) 3 ml INH RQ6 [facility] Last Admin: 02/03/17 14:00 Dose: 3 ml Aspirin (Aspirin Chewable) 81 mg PO DAILY [facility] Last Admin: 02/03/17 09:07 Dose: Not Given Enalapril Maleate (Vasotec) 5 mg PO DAILY [facility] Last Admin: 02/03/17 09:08 Dose: Not Given Enoxaparin Sodium (Lovenox) 40 mg SC DAILY [facility] Last Admin: 02/02/17 10:20 Dose: Not Given Levetiracetam 750 mg/ Sodium (Chloride) 107.5 mls @ 420 mls/hr IVPB Q12H [facility] Last Admin: 02/03/17 13:11 Dose: 420 mls/hr Linezolid (Zyvox 600mg/300ml D5w) 600 mg in 300 mls @ 200 mls/hr IVPB Q12 [facility] Last Admin: 02/03/17 10:38 Dose: 200 mls/hr Aztreonam 1 gm/ Sodium (Chloride) 100 mls @ 100 mls/hr IVPB Q8H [facility] Last Admin: 02/03/17 17:58 Dose: 100 mls/hr Insulin Aspart (Novolog) 0 unit SC Q6 [facility] PRN Reason: Protocol Last Admin: 02/03/17 18:25 Dose: Not Given Insulin Glargine (Lantus) 20 unit SC [facility] Last Admin: 02/01/17 22:30 Dose: Not Given Levothyroxine Sodium (Synthroid) 25 mcg PO DAILY@0630 [facility] Last Admin: 02/03/17 05:39 Dose: Not Given Lorazepam (Ativan) 2 mg IVP Q6H PRN PRN Reason: Anxiety Metoprolol Tartrate (Lopressor) 25 mg PO BID [facility] Last Admin: 02/03/17 18:03 Dose: 25 mg Morphine Sulfate (Morphine) 1 mg IVP Q4 PRN PRN Reason: Pain, moderate (4-7) Last Admin: 02/03/17 17:58 Dose: 1 mg Nystatin (Nystop Topical Powder) 1 applic TOP BID [facility] Last Admin: 02/03/17 18:04 Dose: 1 applic Pantoprazole Sodium (Protonix Inj) 40 mg IVP DAILY [facility] Last Admin: 02/03/17 14:20 Dose: 40 mg Rosuvastatin Calcium (Crestor) 20 mg PO [facility] Last Admin: 02/02/17 21:31 Dose: Not Given - Labs Labs: 02/03/17 14:20 02/03/17 06:05 PT 15.8 SECONDS (9.7-12.2) H 02/03/17 12:09 INR 1.4 02/03/17 12:09 APTT 36 SECONDS (21-34) H 02/03/17 12:09 Assessment and Plan (1) Respiratory failure Status: Acute (2) Seizure disorder Status: Acute (3) Uncontrolled blood glucose Status: Acute (4) Systolic CHF Status: Acute (5) S/P bronchoalveolar lavage Status: Acute
--- NOTE | 2017-02-03 22:35 | CP.PCM.PN ---
Subjective - Date & Time of Evaluation Date of Evaluation: 02/03/17 Time of Evaluation: 22:34 - Subjective Subjective: patient seen in ICU. Afebrile AWAKE AND RESPONSIVE. NODS TO QUESTIONS S/P TRACHEOSTOMY.02/02/17. S/P PEG TODAY 02/02/17. LABS REVIEWED; SPUTUM NORMAL BRAVO HEPATITIS C -REPORTED REACTIVE. Objective - Vital Signs/Intake and Output Vital Signs (last 24 hours): Temp Pulse Resp BP Pulse Ox 98.9 F 81 12 156/70 H 100 02/03/17 20:00 02/03/17 22:01 02/03/17 22:01 02/03/17 22:01 02/03/17 22:01 Intake and Output: 02/03/17 02/04/17 18:59 06:59 Intake Total 600 300 Output Total 100 0 Balance 500 300 - Medications Medications: Current Medications Acetaminophen (Tylenol 325mg Tab) 650 mg PO Q6 PRN PRN Reason: Pain, moderate (4-7) Last Admin: 02/03/17 20:39 Dose: 650 mg Albuterol/Ipratropium (Duoneb 3 Mg/0.5 Mg (3 Ml) Ud) 3 ml INH RQ6 [facility] Last Admin: 02/03/17 19:48 Dose: 3 ml Aspirin (Aspirin Chewable) 81 mg PO DAILY [facility] Last Admin: 02/03/17 09:07 Dose: Not Given Enalapril Maleate (Vasotec) 5 mg PO DAILY [facility] Last Admin: 02/03/17 09:08 Dose: Not Given Enoxaparin Sodium (Lovenox) 40 mg SC DAILY [facility] Last Admin: 02/02/17 10:20 Dose: Not Given Levetiracetam 750 mg/ Sodium (Chloride) 107.5 mls @ 420 mls/hr IVPB Q12H [facility] Last Admin: 02/03/17 13:11 Dose: 420 mls/hr Linezolid (Zyvox 600mg/300ml D5w) 600 mg in 300 mls @ 200 mls/hr IVPB Q12 [facility] Last Admin: 02/03/17 21:25 Dose: 200 mls/hr Aztreonam 1 gm/ Sodium (Chloride) 100 mls @ 100 mls/hr IVPB Q8H [facility] Last Admin: 02/03/17 17:58 Dose: 100 mls/hr Insulin Aspart (Novolog) 0 unit SC Q6 [facility] PRN Reason: Protocol Last Admin: 02/03/17 18:25 Dose: Not Given Insulin Glargine (Lantus) 20 unit SC [facility] Last Admin: 02/01/17 22:30 Dose: Not Given Levothyroxine Sodium (Synthroid) 25 mcg PO DAILY@0630 [facility] Last Admin: 02/03/17 05:39 Dose: Not Given Lorazepam (Ativan) 2 mg IVP Q6H PRN PRN Reason: Anxiety Metoprolol Tartrate (Lopressor) 25 mg PO BID [facility] Last Admin: 02/03/17 18:03 Dose: 25 mg Morphine Sulfate (Morphine) 1 mg IVP Q4 PRN PRN Reason: Pain, moderate (4-7) Last Admin: 02/03/17 17:58 Dose: 1 mg Nystatin (Nystop Topical Powder) 1 applic TOP BID [facility] Last Admin: 02/03/17 18:04 Dose: 1 applic Pantoprazole Sodium (Protonix Inj) 40 mg IVP DAILY [facility] Last Admin: 02/03/17 14:20 Dose: 40 mg Rosuvastatin Calcium (Crestor) 20 mg PO [facility] Last Admin: 02/03/17 21:27 Dose: 20 mg - Labs Labs: 02/03/17 14:20 02/03/17 06:05 PT 15.8 SECONDS (9.7-12.2) H 02/03/17 12:09 INR 1.4 02/03/17 12:09 APTT 36 SECONDS (21-34) H 02/03/17 12:09 - Constitutional Appears: No Acute Distress, Cachectic, Chronically Ill - Head Exam Head Exam: NORMAL INSPECTION - Eye Exam Eye Exam: EOMI, PERRL - ENT Exam ENT Exam: Normal Oropharynx Additional comments: TRACH IN PLACE. - Neck Exam Neck Exam: Normal Inspection - Respiratory Exam Respiratory Exam: Decreased Breath Sounds - Cardiovascular Exam Cardiovascular Exam: Irregular Rhythm, +S1, +S2 - GI/Abdominal Exam GI & Abdominal Exam: Soft, Normal Bowel Sounds Additional comments: PEG IN PLACE. - Extremities Exam Extremities Exam: Normal Capillary Refill. absent: Calf Tenderness, Pedal Edema - Neurological Exam Neurological Exam: Awake, CN II-XII Intact, Oriented x3 - Psychiatric Exam Psychiatric exam: Normal Mood - Skin Skin Exam: Warm Assessment and Plan (1) Sepsis Assessment & Plan: ON IV ZYVOX 600MG IV Q 12HRLY. 01/29/17. CONTINUE IV AZACTAM DECREASE DOSE 1GM IV Q 8HRLY. 01/18/17 X 2DAYS MORE AND DC 02/05/17. sputum culture normal bravo. Chest x-ray 02/02/17 SMALL RT. PLEURAL EFFUSION, OPACITY SEEN LLL.VENOUS CONGESTION +VE TRACH. Status: Acute (2) Respiratory failure Assessment & Plan: S/P TRACHEOSTOMY. Status: Acute (3) Pneumonia Assessment & Plan: ABOVE. PULMONARY TOILET. Status: Acute (4) Hypertension Status: Chronic (5) UTI (urinary tract infection) due to Enterococcus Assessment & Plan: follow-up repeat UA urine cultures. ON IV ZYVOX 600MG IV Q 12HRLY. Status: Acute (6) Hepatitis C antibody test positive Assessment & Plan: HCV RNA-PCR QUANTITATIVE LEVELS TO CONFIRM HEP C. hEP C GENOTYPE. Status: Acute
[2017-02-04] MEDS: (Novolog) Insulin Aspart, Recombinant 100 u/ml 10 ml vial SC SCH ×4 (00:39→17:59)
[2017-02-04] MEDS: Aztreonam 1 GM in Sodium Chloride 0.9% 100 ML IVPB SCH ×3 (02:00→17:04)
[2017-02-04] MEDS: Albuterol-Ipratrop 3 mg / 0.5 (3 ml) UD INH SCH ×5 (02:08→19:37)
[2017-02-04 06:10] LABS: BASO % 0.3 % (0.0-2.0); HEMOGLOBIN 9.3 g/dL (11.0-16.0); LYMPH # 0.3 K/uL (1.0-4.3); LYMPH % 2.8 % (20.0-40.0); MEAN CELL VOLUME 83.2 fL (81.0-99.0); MEAN CORPUSCULAR HEMOGLOBIN 27.8 pg (27.0-31.0); MEAN CORPUSCULAR HGB CONC 33.4 g/dL (33.0-37.0); MEAN PLATELET VOLUME 7.7 fL (7.2-11.7); MONO # 0.3 K/uL (0.0-0.8); MONO % 2.6 % (0.0-10.0); NEUT # 10.8 K/uL (1.8-7.0); NEUT % 94.3 % (50.0-75.0); PLATELET COUNT 362 K/uL (130-400); RBC 3.34 Mil/uL (3.80-5.20); RED CELL DISTRIBUTION WIDTH 15.5 % (11.5-14.5); WHITE BLOOD COUNT 11.4 K/uL (4.8-10.8)
[2017-02-04] MEDS: Levothyroxine 25 MCG TAB PO SCH (06:44)
[2017-02-04 06:52] LABS: ALB/GLOB RATIO 0.8 (1.0-2.1); ALBUMIN 2.7 g/dL (3.5-5.0); ALT/SGPT 23 U/L (9-52); AST/SGOT 19 U/L (14-36); BLOOD UREA NITROGEN 18 mg/dL (7-17); CALCIUM 7.3 mg/dl (8.6-10.4); GFR AFRICAN-AMERICAN > 60; GFR NON-AFRICAN AMERICAN > 60; MAGNESIUM 1.8 mg/dL (1.6-2.3)
[2017-02-04] MEDS ORDERED: Iohexol 240 (50 ml) PO ONE (07:30)
--- NOTE | 2017-02-04 07:50 | CP.PCM.PN ---
Subjective - Date & Time of Evaluation Date of Evaluation: 02/04/17 Time of Evaluation: 07:36 - Subjective Subjective: General Surgery: Dr Hunter Pt S&E. Tube feeds started yesterday. Overnight pt became increasingly distended. Now tachycardic 140s. Tube feeds have been stopped. Plan to image to G-tube to ensure has not dislodged. Objective - Vital Signs/Intake and Output Vital Signs (last 24 hours): Temp Pulse Resp BP Pulse Ox 97.8 F 100 H 19 139/56 L 100 02/04/17 04:00 02/04/17 04:01 02/04/17 04:01 02/04/17 04:01 02/04/17 04:01 Intake and Output: 02/04/17 02/04/17 06:59 18:59 Intake Total 500 0 Output Total 200 Balance 300 0 - Medications Medications: Current Medications Acetaminophen (Tylenol 325mg Tab) 650 mg PO Q6 PRN PRN Reason: Pain, moderate (4-7) Last Admin: 02/03/17 20:39 Dose: 650 mg Albuterol/Ipratropium (Duoneb 3 Mg/0.5 Mg (3 Ml) Ud) 3 ml INH RQ6 [facility] Last Admin: 02/04/17 02:08 Dose: 3 ml Aspirin (Aspirin Chewable) 81 mg PO DAILY [facility] Last Admin: 02/03/17 09:07 Dose: Not Given Enalapril Maleate (Vasotec) 5 mg PO DAILY [facility] Last Admin: 02/03/17 09:08 Dose: Not Given Enoxaparin Sodium (Lovenox) 40 mg SC DAILY [facility] Last Admin: 02/02/17 10:20 Dose: Not Given Levetiracetam 750 mg/ Sodium (Chloride) 107.5 mls @ 420 mls/hr IVPB Q12H [facility] Last Admin: 02/04/17 00:40 Dose: 420 mls/hr Linezolid (Zyvox 600mg/300ml D5w) 600 mg in 300 mls @ 200 mls/hr IVPB Q12 [facility] Last Admin: 02/03/17 21:25 Dose: 200 mls/hr Aztreonam 1 gm/ Sodium (Chloride) 100 mls @ 100 mls/hr IVPB Q8H [facility] Last Admin: 02/04/17 02:00 Dose: 100 mls/hr Insulin Aspart (Novolog) 0 unit SC Q6 [facility] PRN Reason: Protocol Last Admin: 02/04/17 06:00 Dose: 1 unit Insulin Glargine (Lantus) 20 unit SC [facility] Last Admin: 02/01/17 22:30 Dose: Not Given Levothyroxine Sodium (Synthroid) 25 mcg PO DAILY@0630 [facility] Last Admin: 02/04/17 06:44 Dose: 25 mcg Lorazepam (Ativan) 2 mg IVP Q6H PRN PRN Reason: Anxiety Metoprolol Tartrate (Lopressor) 25 mg PO BID [facility] Last Admin: 02/03/17 18:03 Dose: 25 mg Morphine Sulfate (Morphine) 1 mg IVP Q4 PRN PRN Reason: Pain, moderate (4-7) Last Admin: 02/03/17 23:00 Dose: 1 mg Nystatin (Nystop Topical Powder) 1 applic TOP BID [facility] Last Admin: 02/03/17 18:04 Dose: 1 applic Pantoprazole Sodium (Protonix Inj) 40 mg IVP DAILY [facility] Last Admin: 02/03/17 14:20 Dose: 40 mg Rosuvastatin Calcium (Crestor) 20 mg PO [facility] Last Admin: 02/03/17 21:27 Dose: 20 mg - Labs Labs: 02/04/17 06:03 02/04/17 06:03 PT 15.8 SECONDS (9.7-12.2) H 02/03/17 12:09 INR 1.4 02/03/17 12:09 APTT 36 SECONDS (21-34) H 02/03/17 12:09 - Constitutional Appears: Chronically Ill - Eye Exam Eye Exam: absent: Scleral icterus - Respiratory Exam Additional comments: trach c/d/i - Cardiovascular Exam Cardiovascular Exam: Tachycardia (140s) - GI/Abdominal Exam GI & Abdominal Exam: Distended, Tenderness. absent: Firm, Guarding, Rigid Additional comments: midline incision continues to ooze serosanguinous - Neurological Exam Neurological Exam: Awake Assessment and Plan - Assessment and Plan (Free Text) Assessment: 81F POD#2 s/p G-tube placement Plan: hold tube feeds omnipaque ordered - will do contrast study this AM at bedside d/w Dr Elsa Guevara, PGY3
[2017-02-04 08:55] LABS: ANISOCYTOSIS SLIGHT; BANDS 15 % (0-2); BASOPHIL 1 % (0-2); BURR CELLS SLIGHT; HYPOCHROMIC SLIGHT; LYMPHOCYTE 2 % (20-40); MONOCYTE 1 % (0-10); NEUTROPHIL 81 % (50-75); OVALOCYTES SLIGHT; PLATELET ESTIMATE NORMAL (NORMAL); POIKILOCYTOSIS SLIGHT; TOTAL CELLS COUNTED 100
[2017-02-04] MEDS ORDERED: Metoprolol 1 mg/ml Inj IVP ONE (09:59)
[2017-02-04] MEDS: Linezolid 600 mg in D5W 300 ml 600 MG/300 ML BAG IVPB SCH ×2 (10:06→21:19)
--- NOTE | 2017-02-04 10:21 | RAD ---
HISTORY: S/P Gastrostomy tube insertion, bleeding at site COMPARISON: Abdominal radiograph performed 09/23/15 FINDINGS: Examination limited by patient obliquity. Midline surgical lizette. Numerous tubes and catheters evident ; gastric tube positioning cannot be adequately assessed on this limited provided view. Nonspecific bowel gas pattern. Vascular calcifications. Osseous demineralization. Degenerative changes. Right hip arthroplasty hardware, partially imaged. IMPRESSION: Numerous tubes and catheters evident ; gastric tube positioning cannot be adequately assessed on this limited provided view. Nonspecific bowel gas pattern. Midline surgical lizette. Additional findings as above.
[2017-02-04 10:59] LABS: ABG ALLEN TEST POS; ARTERIAL BLOOD GAS HCO3 23.3 mmol/L (21-28); ARTERIAL BLOOD GAS O2 SAT 99.7 % (95-98); ARTERIAL BLOOD GAS PCO2 29 mm/Hg (35-45); ARTERIAL BLOOD GAS PH 7.46 (7.35-7.45); ARTERIAL BLOOD GAS PO2 132 mm/Hg (80-100); ARTERIAL BLOOD GAS TCO2 21.5 mmol/L (22-28)
--- NOTE | 2017-02-04 11:22 | CP.CCUPN ---
<Traci Garcia - Last Filed: 02/04/17 11:16> CCU Subjective - Physician Review Subjective (Free Text): 02/04/17 11:[address] Alfaro Patient seen and examined at bedside. GCS10T ([id number]). Breakthrough bleeding. assistant vice president changed dressing overnight. Dressings were changed at bedside with steri strips at incision site. Area of coagulated blood at incision site. Patient was seen to be distended. Patient has trach in place on vent and was not able to speak at this time. Patient to be brought to OR around 13:00 today for revision of G tube. Abdominal Xray s/p omnipaque insertion this morning shows possible extravasation. Consent for OR and anesthesia in chart. 2 u PRBC ordered with type and cross for transfusion if necessary post procedure 02/04/17 11:22 Critical Care Time Spent (in minutes): 35 CCU Objective - Vital Signs / Intake & Output Vital Signs (Last 4 hours): Vital Signs Temp Pulse Resp BP Pulse Ox 02/04/17 10:01 143 H 15 124/67 100 02/04/17 10:00 144 H 21 100 02/04/17 09:01 143 H 18 136/76 100 02/04/17 09:00 144 H 25 H 100 02/04/17 08:01 147 H 20 131/75 100 02/04/17 08:00 99.3 F 144 H 16 100 Intake and Output (Last 8hrs): Intake & Output 02/03/17 02/04/17 02/04/17 22:59 06:59 14:59 Intake Total 400 200 100 Output Total 100 200 250 Balance 300 0 -150 Weight 119 lb Intake: Intake, IV Amount 400 200 100 Left Distal Port Internal 400 200 100 Jugular Output: Gastric Amount 250 Stomach 250 Urine 100 200 Urine, Voided 100 200 Other: # Voids Urine, Voided 1 # Bowel Movements 0 - Physical Exam Head: Positive for: Atraumatic, Normocephalic Pupils: Positive for: PERRL Extroacular Muscles: Positive for: EOMI Mouth: Positive for: Moist Mucous Membranes, Other (trach) Respiratory/Chest: Positive for: Wheezes, Decreased Breath Sounds, Rhonchi, Other (intubated). Negative for: Respiratory Distress, Accessory Muscle Use Cardiovascular: Positive for: Regular Rate and Rhythm, Murmurs, Normal S1, S2 Abdomen: Positive for: Feeding Tubes (gastrostomy tube). Negative for: Tenderness, Distention, Peritoneal Signs Upper Extremity: Positive for: Normal Inspection. Negative for: Edema Lower Extremity: Positive for: Normal Inspection. Negative for: Edema Neurological: Positive for: Other (intubated). Negative for: GCS=15 (GCS 11T) Skin: Positive for: Warm Psychiatric: Positive for: Alert, Other (intubated) - Medications Active Medications: Active Medications Generic Name Dose Route Start Last Admin Trade Name Freq PRN Reason Stop Dose Admin Acetaminophen 650 mg 01/17/17 21:49 02/03/17 20:39 Tylenol 325mg Tab PO 650 mg Q6 PRN Administration Pain, moderate (4-7) Albuterol/Ipratropium 3 ml 01/31/17 20:00 02/04/17 07:55 Duoneb 3 Mg/0.5 Mg (3 Ml) Ud INH Not Given RQ6 [facility] Aspirin 81 mg 01/28/17 10:00 02/04/17 09:15 Aspirin Chewable PO Not Given DAILY [facility] Enalapril Maleate 5 mg 01/26/17 12:45 02/04/17 09:26 Vasotec PO Not Given DAILY [facility] Enoxaparin Sodium 40 mg 02/01/17 10:00 02/02/17 10:20 Lovenox SC Not Given DAILY [facility] Levetiracetam 750 mg/ Sodium 107.5 mls @ 420 mls/hr 01/27/17 13:00 02/04/17 00:40 Chloride IVPB 420 mls/hr Q12H [facility] Administration Linezolid 600 mg in 300 mls @ 200 mls/hr 01/29/17 22:00 02/04/17 10:06 Zyvox 600mg/300ml D5w IVPB 200 mls/hr Q12 [facility] Administration Aztreonam 1 gm/ Sodium 100 mls @ 100 mls/hr 01/31/17 10:00 02/04/17 09:24 Chloride IVPB 100 mls/hr Q8H [facility] Administration Insulin Aspart 0 unit 01/25/17 12:00 02/04/17 06:00 Novolog SC 1 unit Q6 [facility] Administration Protocol Insulin Glargine 20 unit 01/25/17 22:00 02/01/17 22:30 Lantus SC Not Given HS [facility] Levothyroxine Sodium 25 mcg 01/18/17 06:30 02/04/17 06:44 Synthroid PO 25 mcg DAILY@0630 [facility] Administration Lorazepam 2 mg 02/02/17 20:29 Ativan IVP Q6H PRN Anxiety Metoprolol Tartrate 25 mg 01/26/17 18:00 02/04/17 10:05 Lopressor PO Not Given BID [facility] Morphine Sulfate 1 mg 02/03/17 14:53 02/03/17 23:00 Morphine IVP 1 mg Q4 PRN Administration Pain, moderate (4-7) Nystatin 1 applic 01/24/17 18:00 02/04/17 09:24 Nystop Topical Powder TOP 1 applic BID [facility] Administration Pantoprazole Sodium 40 mg 02/03/17 10:00 02/04/17 09:24 Protonix Inj IVP 40 mg DAILY [facility] Administration Rosuvastatin Calcium 20 mg 01/18/17 22:00 02/03/17 21:27 Crestor PO 20 mg HS [facility]OT[facility] Administration - Patient Studies Lab Studies: Microbiology Studies 02/03/17 15:25 Urine Culture - Final Urine,Catheterized No Growth (<1,000 CFU/ML) 01/29/17 21:00 Blood Culture - Final Blood-Thru Central Line NO GROWTH AFTER 5 DAYS Gram Stain - Final TEST NOT PERFORMED 01/29/17 21:00 Blood Culture - Final Blood-Thru Central Line NO GROWTH AFTER 5 DAYS Gram Stain - Final TEST NOT PERFORMED Lab Studies 02/04/17 02/04/17 02/04/17 Range/Units 10:56 06:03 06:03 WBC 11.4 H (4.8-10.8) K/uL RBC 3.34 L (3.80-5.20) Mil/uL Hgb 9.3 L (11.0-16.0) g/dL Hct 27.8 L (34.0-47.0) % MCV 83.2 (81.0-99.0) fL MCH 27.8 (27.0-31.0) pg MCHC 33.4 (33.0-37.0) g/dL RDW 15.5 H (11.5-14.5) % Plt Count 362 D (130-400) K/uL MPV 7.7 (7.2-11.7) fL Neut % (Auto) 94.3 H (50.0-75.0) % Lymph % (Auto) 2.8 L (20.0-40.0) % [place]ann[place] % (Auto) 2.6 (0.0-10.0) % Eos % (Auto) 0.0 (0.0-4.0) % Baso % (Auto) 0.3 (0.0-2.0) % Neut # 10.8 H (1.8-7.0) K/uL Lymph # 0.3 L (1.0-4.3) K/uL F[place] # 0.3 (0.0-0.8) K/uL Eos # 0.0 (0.0-0.7) K/uL Baso # 0.0 (0.0-0.2) K/uL Neutrophils % (Manual) 81 H (50-75) % Band Neutrophils % 15 H* (0-2) % Lymphocytes % (Manual) 2 L (20-40) % Monocytes % (Manual) 1 (0-10) % Basophils % (Manual) 1 (0-2) % Platelet Estimate Normal (NORMAL) Hypochromasia (manual) Slight Poikilocytosis (manual Slight Anisocytosis (manual) Slight Ovalocytes Slight Sofia Cells Slight PT (9.7-12.2) SECONDS INR APTT (21-34) SECONDS Puncture Site Rr pCO2 29 L (35-45) mm/Hg pO2 132 H (80-100) mm/Hg HCO3 23.3 (21-28) mmol/L ABG pH 7.46 H (7.35-7.45) ABG Total CO2 21.5 L (22-28) mmol/L ABG O2 Saturation 99.7 H (95-98) % ABG Base Excess -2.1 L (-2.0-3.0) mmol/L Singh Test Pos ABG Potassium 4.0 (3.6-5.2) mmol/L A-a O2 Difference 117.0 mm/Hg Respiratory Index 0.9 Glucose 266 H (65-105) mg/dl Lactate 1.1 (0.7-2.1) mmol/L Vent Mode Prvc Mechanical Rate 12 FiO2 40.0 % Tidal Volume 400 PEEP 5 Sodium 136.0 129 L (132-148) mmol/L Potassium 4.1 (3.6-5.2) mmol/L Chloride 107.0 100 (98-107) mmol/L Carbon Dioxide 20 L (22-30) mmol/L Anion Gap 13 (10-20) BUN 18 H (7-17) mg/dL Creatinine 0.5 L (0.7-1.2) mg/dL Est GFR ( Amer) > 60 Est GFR (Non-Af Amer) > 60 POC Glucose (mg/dL) (65-110) mg/dL Random Glucose 207 H (65-105) mg/dL Calcium 7.3 L (8.6-10.4) mg/dl Phosphorus 2.9 (2.5-4.5) mg/dL Magnesium 1.8 (1.6-2.3) mg/dL Total Bilirubin 0.7 (0.2-1.3) mg/dL AST 19 (14-36) U/L ALT 23 (9-52) U/L Alkaline Phosphatase 84 (38-126) U/L Total Protein 6.2 L (6.3-8.3) g/dL Albumin 2.7 L (3.5-5.0) g/dL Globulin 3.4 (2.2-3.9) gm/dL Albumin/Globulin Ratio 0.8 L (1.0-2.1) Arterial Blood Potassium 4.0 (3.6-5.2) mmol/L Urine Color (YELLOW) Urine Clarity (Clear) Urine pH (5.0-8.0) Ur Specific [place] (1.003-1.030) Urine Protein (NEGATIVE) mg/dL Urine Glucose (UA) (Normal) mg/dL Urine Ketones (NEGATIVE) mg/dL Urine Blood (NEGATIVE) Urine Nitrate (NEGATIVE) Urine Bilirubin (NEGATIVE) Urine Urobilinogen (0.2-1.0) mg/dL Ur Leukocyte Esterase (Negative) Raoul/uL Ur Squamous Epith Cells (0-5) /hpf Amorphous Sediment (<OCC) /ul Urine Bacteria (<OCC) Hepatitis A IgM Ab (NEGATIVE) Hep Bs Antigen (NEGATIVE) Hep B Core IgM Ab (NEGATIVE) Hepatitis C Antibody (NEGATIVE) HIV 1&2 Antibody Screen (NEGATIVE) 02/04/17 02/04/17 02/03/17 Range/Units 05:21 00:08 17:42 WBC (4.8-10.8) K/uL RBC (3.80-5.20) Mil/uL Hgb (11.0-16.0) g/dL Hct (34.0-47.0) % MCV (81.0-99.0) fL MCH (27.0-31.0) pg MCHC (33.0-37.0) g/dL RDW (11.5-14.5) % Plt Count (130-400) K/uL MPV (7.2-11.7) fL Neut % (Auto) (50.0-75.0) % Lymph % (Auto) (20.0-40.0) % [place] % (Auto) (0.0-10.0) % Eos % (Auto) (0.0-4.0) % Baso % (Auto) (0.0-2.0) % Neut # (1.8-7.0) K/uL Lymph # (1.0-4.3) K/uL [place] # (0.0-0.8) K/uL Eos # (0.0-0.7) K/uL Baso # (0.0-0.2) K/uL Neutrophils % (Manual) (50-75) % Band Neutrophils % (0-2) % Lymphocytes % (Manual) (20-40) % Monocytes % (Manual) (0-10) % Basophils % (Manual) (0-2) % Platelet Estimate (NORMAL) Hypochromasia (manual) Poikilocytosis (manual Anisocytosis (manual) Ovalocytes Sofia Cells PT (9.7-12.2) SECONDS INR APTT (21-34) SECONDS Puncture Site pCO2 (35-45) mm/Hg pO2 (80-100) mm/Hg HCO3 (21-28) mmol/L ABG pH (7.35-7.45) ABG Total CO2 (22-28) mmol/L ABG O2 Saturation (95-98) % ABG Base Excess (-2.0-3.0) mmol/L Singh Test ABG Potassium (3.6-5.2) mmol/L A-a O2 Difference mm/Hg Respiratory Index Glucose (65-105) mg/dl Lactate (0.7-2.1) mmol/L Vent Mode Mechanical Rate FiO2 % Tidal Volume PEEP Sodium (132-148) mmol/L Potassium (3.6-5.2) mmol/L Chloride (98-107) mmol/L Carbon Dioxide (22-30) mmol/L Anion Gap (10-20) BUN (7-17) mg/dL Creatinine (0.7-1.2) mg/dL Est GFR ( Amer) Est GFR (Non-Af Amer) POC Glucose (mg/dL) 196 H 263 H 162 H (65-110) mg/dL Random Glucose (65-105) mg/dL Calcium (8.6-10.4) mg/dl Phosphorus (2.5-4.5) mg/dL Magnesium (1.6-2.3) mg/dL Total Bilirubin (0.2-1.3) mg/dL AST (14-36) U/L ALT (9-52) U/L Alkaline Phosphatase (38-126) U/L Total Protein (6.3-8.3) g/dL Albumin (3.5-5.0) g/dL Globulin (2.2-3.9) gm/dL Albumin/Globulin Ratio (1.0-2.1) Arterial Blood Potassium (3.6-5.2) mmol/L Urine Color (YELLOW) Urine Clarity (Clear) Urine pH (5.0-8.0) Ur Specific [place] (1.003-1.030) Urine Protein (NEGATIVE) mg/dL Urine Glucose (UA) (Normal) mg/dL Urine Ketones (NEGATIVE) mg/dL Urine Blood (NEGATIVE) Urine Nitrate (NEGATIVE) Urine Bilirubin (NEGATIVE) Urine Urobilinogen (0.2-1.0) mg/dL Ur Leukocyte Esterase (Negative) Raoul/uL Ur Squamous Epith Cells (0-5) /hpf Amorphous Sediment (<OCC) /ul Urine Bacteria (<OCC) Hepatitis A IgM Ab (NEGATIVE) Hep Bs Antigen (NEGATIVE) Hep B Core IgM Ab (NEGATIVE) Hepatitis C Antibody (NEGATIVE) HIV 1&2 Antibody Screen (NEGATIVE) 02/03/17 02/03/17 02/03/17 Range/Units 14:20 13:09 12:09 WBC 8.8 (4.8-10.8) K/uL RBC 3.10 L (3.80-5.20) Mil/uL Hgb 8.7 L (11.0-16.0) g/dL Hct 25.5 L (34.0-47.0) % MCV 82.2 (81.0-99.0) fL MCH 28.2 (27.0-31.0) pg MCHC 34.3 (33.0-37.0) g/dL RDW 15.0 H (11.5-14.5) % Plt Count 250 (130-400) K/uL MPV 7.8 (7.2-11.7) fL Neut % (Auto) 80.9 H (50.0-75.0) % Lymph % (Auto) 12.6 L (20.0-40.0) % [place] % (Auto) 5.7 (0.0-10.0) % Eos % (Auto) 0.3 (0.0-4.0) % Baso % (Auto) 0.5 (0.0-2.0) % Neut # 7.1 H (1.8-7.0) K/uL Lymph # 1.1 (1.0-4.3) K/uL [place] # 0.5 (0.0-0.8) K/uL Eos # 0.0 (0.0-0.7) K/uL Baso # 0.0 (0.0-0.2) K/uL Neutrophils % (Manual) (50-75) % Band Neutrophils % (0-2) % Lymphocytes % (Manual) (20-40) % Monocytes % (Manual) (0-10) % Basophils % (Manual) (0-2) % Platelet Estimate (NORMAL) Hypochromasia (manual) Poikilocytosis (manual Anisocytosis (manual) Ovalocytes [place] Cells PT (9.7-12.2) SECONDS INR APTT (21-34) SECONDS Puncture Site pCO2 (35-45) mm/Hg pO2 (80-100) mm/Hg HCO3 (21-28) mmol/L ABG pH (7.35-7.45) ABG Total CO2 (22-28) mmol/L ABG O2 Saturation (95-98) % ABG Base Excess (-2.0-3.0) mmol/L Singh Test ABG Potassium (3.6-5.2) mmol/L A-a O2 Difference mm/Hg Respiratory Index Glucose (65-105) mg/dl Lactate (0.7-2.1) mmol/L Vent Mode Mechanical Rate FiO2 % Tidal Volume PEEP Sodium (132-148) mmol/L Potassium (3.6-5.2) mmol/L Chloride (98-107) mmol/L Carbon Dioxide (22-30) mmol/L Anion Gap (10-20) BUN (7-17) mg/dL Creatinine (0.7-1.2) mg/dL Est GFR ( Amer) Est GFR (Non-Af Amer) POC Glucose (mg/dL) (65-110) mg/dL Random Glucose (65-105) mg/dL Calcium (8.6-10.4) mg/dl Phosphorus (2.5-4.5) mg/dL Magnesium (1.6-2.3) mg/dL Total Bilirubin (0.2-1.3) mg/dL AST (14-36) U/L ALT (9-52) U/L Alkaline Phosphatase (38-126) U/L Total Protein (6.3-8.3) g/dL Albumin (3.5-5.0) g/dL Globulin (2.2-3.9) gm/dL Albumin/Globulin Ratio (1.0-2.1) Arterial Blood Potassium (3.6-5.2) mmol/L Urine Color Nay (YELLOW) Urine Clarity Hazy (Clear) Urine pH 5.0 (5.0-8.0) Ur Specific [place] 1.027 (1.003-1.030) Urine Protein 2+ H (NEGATIVE) mg/dL Urine Glucose (UA) Normal (Normal) mg/dL Urine Ketones Negative (NEGATIVE) mg/dL Urine Blood Negative (NEGATIVE) Urine Nitrate Negative (NEGATIVE) Urine Bilirubin Negative (NEGATIVE) Urine Urobilinogen Normal (0.2-1.0) mg/dL Ur Leukocyte Esterase Neg (Negative) Raoul/uL Ur Squamous Epith Cells 8 H (0-5) /hpf Amorphous Sediment Occ H (<OCC) /ul Urine Bacteria Occ H (<OCC) Hepatitis A IgM Ab Negative (NEGATIVE) Hep Bs Antigen Negative (NEGATIVE) Hep B Core IgM Ab Negative (NEGATIVE) Hepatitis C Antibody Reactive (NEGATIVE) HIV 1&2 Antibody Screen (NEGATIVE) 02/03/17 02/03/17 02/03/17 Range/Units 12:09 12:09 11:19 WBC (4.8-10.8) K/uL RBC (3.80-5.20) Mil/uL Hgb (11.0-16.0) g/dL Hct (34.0-47.0) % MCV (81.0-99.0) fL MCH (27.0-31.0) pg MCHC (33.0-37.0) g/dL RDW (11.5-14.5) % Plt Count (130-400) K/uL MPV (7.2-11.7) fL Neut % (Auto) (50.0-75.0) % Lymph % (Auto) (20.0-40.0) % [place] % (Auto) (0.0-10.0) % Eos % (Auto) (0.0-4.0) % Baso % (Auto) (0.0-2.0) % Neut # (1.8-7.0) K/uL Lymph # (1.0-4.3) K/uL [place] # (0.0-0.8) K/uL Eos # (0.0-0.7) K/uL Baso # (0.0-0.2) K/uL Neutrophils % (Manual) (50-75) % Band Neutrophils % (0-2) % Lymphocytes % (Manual) (20-40) % Monocytes % (Manual) (0-10) % Basophils % (Manual) (0-2) % Platelet Estimate (NORMAL) Hypochromasia (manual) Poikilocytosis (manual Anisocytosis (manual) Ovalocytes [place] Cells PT 15.8 H (9.7-12.2) SECONDS INR 1.4 APTT 36 H (21-34) SECONDS Puncture Site pCO2 (35-45) mm/Hg pO2 (80-100) mm/Hg HCO3 (21-28) mmol/L ABG pH (7.35-7.45) ABG Total CO2 (22-28) mmol/L ABG O2 Saturation (95-98) % ABG Base Excess (-2.0-3.0) mmol/L Singh Test ABG Potassium (3.6-5.2) mmol/L A-a O2 Difference mm/Hg Respiratory Index Glucose (65-105) mg/dl Lactate (0.7-2.1) mmol/L Vent Mode Mechanical Rate FiO2 % Tidal Volume PEEP Sodium (132-148) mmol/L Potassium (3.6-5.2) mmol/L Chloride (98-107) mmol/L Carbon Dioxide (22-30) mmol/L Anion Gap (10-20) BUN (7-17) mg/dL Creatinine (0.7-1.2) mg/dL Est GFR ( Amer) Est GFR (Non-Af Amer) POC Glucose (mg/dL) 140 H (65-110) mg/dL Random Glucose (65-105) mg/dL Calcium (8.6-10.4) mg/dl Phosphorus (2.5-4.5) mg/dL Magnesium (1.6-2.3) mg/dL Total Bilirubin (0.2-1.3) mg/dL AST (14-36) U/L ALT (9-52) U/L Alkaline Phosphatase (38-126) U/L Total Protein (6.3-8.3) g/dL Albumin (3.5-5.0) g/dL Globulin (2.2-3.9) gm/dL Albumin/Globulin Ratio (1.0-2.1) Arterial Blood Potassium (3.6-5.2) mmol/L Urine Color (YELLOW) Urine Clarity (Clear) Urine pH (5.0-8.0) Ur Specific [place] (1.003-1.030) Urine Protein (NEGATIVE) mg/dL Urine Glucose (UA) (Normal) mg/dL Urine Ketones (NEGATIVE) mg/dL Urine Blood (NEGATIVE) Urine Nitrate (NEGATIVE) Urine Bilirubin (NEGATIVE) Urine Urobilinogen (0.2-1.0) mg/dL Ur Leukocyte Esterase (Negative) Raoul/uL Ur Squamous Epith Cells (0-5) /hpf Amorphous Sediment (<OCC) /ul Urine Bacteria (<OCC) Hepatitis A IgM Ab (NEGATIVE) Hep Bs Antigen (NEGATIVE) Hep B Core IgM Ab (NEGATIVE) Hepatitis C Antibody (NEGATIVE) HIV 1&2 Antibody Screen Negative (NEGATIVE) Laboratory Results - last 24 hr 02/03/17 02/03/17 02/03/17 11:19 12:09 12:09 WBC RBC Hgb Hct MCV MCH MCHC RDW Plt Count MPV Neut % (Auto) Lymph % (Auto) [place] % (Auto) Eos % (Auto) Baso % (Auto) Neut # Lymph # [place] # Eos # Baso # Neutrophils % (Manual) Band Neutrophils % Lymphocytes % (Manual) Monocytes % (Manual) Basophils % (Manual) Platelet Estimate Hypochromasia (manual) Poikilocytosis (manual Anisocytosis (manual) Ovalocytes [place] Cells PT 15.8 H INR 1.4 APTT 36 H Puncture Site pCO2 pO2 HCO3 ABG pH ABG Total CO2 ABG O2 Saturation ABG Base Excess Singh Test ABG Potassium A-a O2 Difference Respiratory Index Glucose Lactate Vent Mode Mechanical Rate FiO2 Tidal Volume PEEP Sodium Potassium Chloride Carbon Dioxide Anion Gap BUN Creatinine Est GFR ( Amer) Est GFR (Non-Af Amer) POC Glucose (mg/dL) 140 H Random Glucose Calcium Phosphorus Magnesium Total Bilirubin AST ALT Alkaline Phosphatase Total Protein Albumin Globulin Albumin/Globulin Ratio Arterial Blood Potassium Urine Color Urine Clarity Urine pH Ur Specific [place] Urine Protein Urine Glucose (UA) Urine Ketones Urine Blood Urine Nitrate Urine Bilirubin Urine Urobilinogen Ur Leukocyte Esterase Ur Squamous Epith Cells Amorphous Sediment Urine Bacteria Hepatitis A IgM Ab Hep Bs Antigen Hep B Core IgM Ab Hepatitis C Antibody HIV 1&2 Antibody Screen Negative 02/03/17 02/03/17 02/03/17 12:09 13:09 14:20 WBC 8.8 RBC 3.10 L Hgb 8.7 L Hct 25.5 L MCV 82.2 MCH 28.2 MCHC 34.3 RDW 15.0 H Plt Count 250 MPV 7.8 Neut % (Auto) 80.9 H Lymph % (Auto) 12.6 L [place] % (Auto) 5.7 Eos % (Auto) 0.3 Baso % (Auto) 0.5 Neut # 7.1 H Lymph # 1.1 Fannin # 0.5 Eos # 0.0 Baso # 0.0 Neutrophils % (Manual) Band Neutrophils % Lymphocytes % (Manual) Monocytes % (Manual) Basophils % (Manual) Platelet Estimate Hypochromasia (manual) Poikilocytosis (manual Anisocytosis (manual) Ovalocytes Sofia Cells PT INR APTT Puncture Site pCO2 pO2 HCO3 ABG pH ABG Total CO2 ABG O2 Saturation ABG Base Excess Singh Test ABG Potassium A-a O2 Difference Respiratory Index Glucose Lactate Vent Mode Mechanical Rate FiO2 Tidal Volume PEEP Sodium Potassium Chloride Carbon Dioxide Anion Gap BUN Creatinine Est GFR ( Amer) Est GFR (Non-Af Amer) POC Glucose (mg/dL) Random Glucose Calcium Phosphorus Magnesium Total Bilirubin AST ALT Alkaline Phosphatase Total Protein Albumin Globulin Albumin/Globulin Ratio Arterial Blood Potassium Urine Color Nay Urine Clarity Hazy Urine pH 5.0 Ur Specific [place] 1.027 Urine Protein 2+ H Urine Glucose (UA) Normal Urine Ketones Negative Urine Blood Negative Urine Nitrate Negative Urine Bilirubin Negative Urine Urobilinogen Normal Ur Leukocyte Esterase Neg Ur Squamous Epith Cells 8 H Amorphous Sediment Occ H Urine Bacteria Occ H Hepatitis A IgM Ab Negative Hep Bs Antigen Negative Hep B Core IgM Ab Negative Hepatitis C Antibody Reactive HIV 1&2 Antibody Screen 02/03/17 02/04/17 02/04/17 17:42 00:08 05:21 WBC RBC Hgb Hct MCV MCH MCHC RDW Plt Count MPV Neut % (Auto) Lymph % (Auto) [place] % (Auto) Eos % (Auto) Baso % (Auto) Neut # Lymph # [place] # Eos # Baso # Neutrophils % (Manual) Band Neutrophils % Lymphocytes % (Manual) Monocytes % (Manual) Basophils % (Manual) Platelet Estimate Hypochromasia (manual) Poikilocytosis (manual Anisocytosis (manual) Ovalocytes Sofia Cells PT INR APTT Puncture Site pCO2 pO2 HCO3 ABG pH ABG Total CO2 ABG O2 Saturation ABG Base Excess Singh Test ABG Potassium A-a O2 Difference Respiratory Index Glucose Lactate Vent Mode Mechanical Rate FiO2 Tidal Volume PEEP Sodium Potassium Chloride Carbon Dioxide Anion Gap BUN Creatinine Est GFR ( Amer) Est GFR (Non-Af Amer) POC Glucose (mg/dL) 162 H 263 H 196 H Random Glucose Calcium Phosphorus Magnesium Total Bilirubin AST ALT Alkaline Phosphatase Total Protein Albumin Globulin Albumin/Globulin Ratio Arterial Blood Potassium Urine Color Urine Clarity Urine pH Ur Specific [place] Urine Protein Urine Glucose (UA) Urine Ketones Urine Blood Urine Nitrate Urine Bilirubin Urine Urobilinogen Ur Leukocyte Esterase Ur Squamous Epith Cells Amorphous Sediment Urine Bacteria Hepatitis A IgM Ab Hep Bs Antigen Hep B Core IgM Ab Hepatitis C Antibody HIV 1&2 Antibody Screen 02/04/17 02/04/17 02/04/17 06:03 06:03 10:56 WBC 11.4 H RBC 3.34 L Hgb 9.3 L Hct 27.8 L MCV 83.2 MCH 27.8 MCHC 33.4 RDW 15.5 H Plt Count 362 D MPV 7.7 Neut % (Auto) 94.3 H Lymph % (Auto) 2.8 L [place] % (Auto) 2.6 Eos % (Auto) 0.0 Baso % (Auto) 0.3 Neut # 10.8 H Lymph # 0.3 L [place] # 0.3 Eos # 0.0 Baso # 0.0 Neutrophils % (Manual) 81 H Band Neutrophils % 15 H* Lymphocytes % (Manual) 2 L Monocytes % (Manual) 1 Basophils % (Manual) 1 Platelet Estimate Normal Hypochromasia (manual) Slight Poikilocytosis (manual Slight Anisocytosis (manual) Slight Ovalocytes Slight [place] Cells Slight PT INR APTT Puncture Site Rr pCO2 29 L pO2 132 H HCO3 23.3 ABG pH 7.46 H ABG Total CO2 21.5 L ABG O2 Saturation 99.7 H ABG Base Excess -2.1 L Singh Test Pos ABG Potassium 4.0 A-a O2 Difference 117.0 Respiratory Index 0.9 Glucose 266 H Lactate 1.1 Vent Mode Prvc Mechanical Rate 12 FiO2 40.0 Tidal Volume 400 PEEP 5 Sodium 129 L 136.0 Potassium 4.1 Chloride 100 107.0 Carbon Dioxide 20 L Anion Gap 13 BUN 18 H Creatinine 0.5 L Est GFR ( Amer) > 60 Est GFR (Non-Af Amer) > 60 POC Glucose (mg/dL) Random Glucose 207 H Calcium 7.3 L Phosphorus 2.9 Magnesium 1.8 Total Bilirubin 0.7 AST 19 ALT 23 Alkaline Phosphatase 84 Total Protein 6.2 L Albumin 2.7 L Globulin 3.4 Albumin/Globulin Ratio 0.8 L Arterial Blood Potassium 4.0 Urine Color Urine Clarity Urine pH Ur Specific [place] Urine Protein Urine Glucose (UA) Urine Ketones Urine Blood Urine Nitrate Urine Bilirubin Urine Urobilinogen Ur Leukocyte Esterase Ur Squamous Epith Cells Amorphous Sediment Urine Bacteria Hepatitis A IgM Ab Hep Bs Antigen Hep B Core IgM Ab Hepatitis C Antibody HIV 1&2 Antibody Screen Fingerstick Blood Sugar Results: 196 <Malachi Alfaro S - Last Filed: 02/04/17 17:23> CCU Objective - Vital Signs / Intake & Output Intake and Output (Last 8hrs): Intake & Output 02/04/17 02/04/17 02/04/17 06:59 14:59 22:59 Intake Total 200 500 Output Total 200 300 Balance 0 200 Weight 119 lb Intake: Intake, IV Amount 200 500 Left Distal Port Internal 200 500 Jugular Output: Gastric Amount 250 Stomach 250 Urine 200 50 Urine, Voided 200 50 Other: # Bowel Movements 0 - Medications Active Medications: Active Medications Generic Name Dose Route Start Last Admin Trade Name Freq PRN Reason Stop Dose Admin Acetaminophen 650 mg 01/17/17 21:49 02/03/17 20:39 Tylenol 325mg Tab PO 650 mg Q6 PRN Administration Pain, moderate (4-7) Albuterol/Ipratropium 3 ml 01/31/17 20:00 02/04/17 13:34 Duoneb 3 Mg/0.5 Mg (3 Ml) Ud INH Not Given RQ6 SCOTTY Aspirin 81 mg 01/28/17 10:00 02/04/17 09:15 Aspirin Chewable PO Not Given DAILY [facility] Enalapril Maleate 5 mg 01/26/17 12:45 02/04/17 09:26 Vasotec PO Not Given DAILY [facility] Enoxaparin Sodium 40 mg 02/01/17 10:00 02/02/17 10:20 Lovenox SC Not Given DAILY [facility] Levetiracetam 750 mg/ Sodium 107.5 mls @ 420 mls/hr 01/27/17 13:00 02/04/17 12:20 Chloride IVPB 420 mls/hr Q12H SCOTTY Administration Linezolid 600 mg in 300 mls @ 200 mls/hr 01/29/17 22:00 02/04/17 10:06 Zyvox 600mg/300ml D5w IVPB 200 mls/hr Q12 SCOTTY Administration Aztreonam 1 gm/ Sodium 100 mls @ 100 mls/hr 01/31/17 10:00 02/04/17 17:04 Chloride IVPB 100 mls/hr Q8H SCOTTY Administration Insulin Aspart 0 unit 01/25/17 12:00 02/04/17 11:28 Novolog SC Not Given Q6 [facility] Protocol Insulin Glargine 20 unit 01/25/17 22:00 02/01/17 22:30 Lantus SC Not Given HS SCOTTY Levothyroxine Sodium 25 mcg 01/18/17 06:30 02/04/17 06:44 Synthroid PO 25 mcg DAILY@0630 SCOTTY Administration Lorazepam 2 mg 02/02/17 20:29 Ativan IVP Q6H PRN Anxiety Metoprolol Tartrate 5 mg 02/04/17 18:00 Lopressor IVP Q8H SCOT[facility] Morphine Sulfate 1 mg 02/03/17 14:53 02/03/17 23:00 Morphine IVP 1 mg Q4 PRN Administration Pain, moderate (4-7) Nystatin 1 applic 01/24/17 18:00 02/04/17 17:04 Nystop Topical Powder TOP 1 applic BID SCOTTY Administration Pantoprazole Sodium 40 mg 02/03/17 10:00 02/04/17 09:24 Protonix Inj IVP 40 mg DAILY SCOTTY Administration Rosuvastatin Calcium 20 mg 01/18/17 22:00 02/03/17 21:27 Crestor PO 20 mg HS SCOTTY Administration - Patient Studies Lab Studies: Microbiology Studies 02/03/17 15:25 Urine Culture - Final Urine,Catheterized No Growth (<1,000 CFU/ML) 01/29/17 21:00 Blood Culture - Final Blood-Thru [place] NO GROWTH AFTER 5 DAYS Gram Stain - Final TEST NOT PERFORMED 01/29/17 21:00 Blood Culture - Final Blood-Thru [place] Line NO GROWTH AFTER 5 DAYS Gram Stain - Final TEST NOT PERFORMED Lab Studies 02/04/17 02/04/17 02/04/17 Range/Units 11:38 11:38 11:15 WBC (4.8-10.8) K/uL RBC (3.80-5.20) Mil/uL Hgb (11.0-16.0) g/dL Hct (34.0-47.0) % MCV (81.0-99.0) fL MCH (27.0-31.0) pg MCHC (33.0-37.0) g/dL RDW (11.5-14.5) % Plt Count (130-400) K/uL MPV (7.2-11.7) fL Neut % (Auto) (50.0-75.0) % Lymph % (Auto) (20.0-40.0) % [place] % (Auto) (0.0-10.0) % Eos % (Auto) (0.0-4.0) % Baso % (Auto) (0.0-2.0) % Neut # (1.8-7.0) K/uL Lymph # (1.0-4.3) K/uL Fannin # (0.0-0.8) K/uL Eos # (0.0-0.7) K/uL Baso # (0.0-0.2) K/uL Neutrophils % (Manual) (50-75) % Band Neutrophils % (0-2) % Lymphocytes % (Manual) (20-40) % Monocytes % (Manual) (0-10) % Basophils % (Manual) (0-2) % Platelet Estimate (NORMAL) Hypochromasia (manual) Poikilocytosis (manual Anisocytosis (manual) Ovalocytes Selma Cells PT 13.8 H (9.7-12.2) SECONDS INR 1.2 APTT 34 (21-34) SECONDS Puncture Site pCO2 (35-45) mm/Hg pO2 (80-100) mm/Hg HCO3 (21-28) mmol/L ABG pH (7.35-7.45) ABG Total CO2 (22-28) mmol/L ABG O2 Saturation (95-98) % ABG Base Excess (-2.0-3.0) mmol/L Singh Test ABG Potassium (3.6-5.2) mmol/L A-a O2 Difference mm/Hg Respiratory Index Glucose (65-105) mg/dl Lactate (0.7-2.1) mmol/L Vent Mode Mechanical Rate FiO2 % Tidal Volume PEEP Sodium (132-148) mmol/L Potassium (3.6-5.2) mmol/L Chloride (98-107) mmol/L Carbon Dioxide (22-30) mmol/L Anion Gap (10-20) BUN (7-17) mg/dL Creatinine (0.7-1.2) mg/dL Est GFR ( Amer) Est GFR (Non-Af Amer) POC Glucose (mg/dL) 259 H (65-110) mg/dL Random Glucose (65-105) mg/dL Calcium (8.6-10.4) mg/dl Phosphorus (2.5-4.5) mg/dL Magnesium (1.6-2.3) mg/dL Total Bilirubin (0.2-1.3) mg/dL AST (14-36) U/L ALT (9-52) U/L Alkaline Phosphatase (38-126) U/L Total Protein (6.3-8.3) g/dL Albumin (3.5-5.0) g/dL Globulin (2.2-3.9) gm/dL Albumin/Globulin Ratio (1.0-2.1) Arterial Blood Potassium (3.6-5.2) mmol/L Blood Type O POSITIVE Antibody Screen Positive Antibody Identification Cancelled IRA, Poly Interpret Negative (NEGATIVE) Crossmatch See Detail 02/04/17 02/04/17 02/04/17 Range/Units 10:56 06:03 06:03 WBC 11.4 H (4.8-10.8) K/uL RBC 3.34 L (3.80-5.20) Mil/uL Hgb 9.3 L (11.0-16.0) g/dL Hct 27.8 L (34.0-47.0) % MCV 83.2 (81.0-99.0) fL MCH 27.8 (27.0-31.0) pg MCHC 33.4 (33.0-37.0) g/dL RDW 15.5 H (11.5-14.5) % Plt Count 362 D (130-400) K/uL MPV 7.7 (7.2-11.7) fL Neut % (Auto) 94.3 H (50.0-75.0) % Lymph % (Auto) 2.8 L (20.0-40.0) % Fannin % (Auto) 2.6 (0.0-10.0) % Eos % (Auto) 0.0 (0.0-4.0) % Baso % (Auto) 0.3 (0.0-2.0) % Neut # 10.8 H (1.8-7.0) K/uL Lymph # 0.3 L (1.0-4.3) K/uL Fannin # 0.3 (0.0-0.8) K/uL Eos # 0.0 (0.0-0.7) K/uL Baso # 0.0 (0.0-0.2) K/uL Neutrophils % (Manual) 81 H (50-75) % Band Neutrophils % 15 H* (0-2) % Lymphocytes % (Manual) 2 L (20-40) % Monocytes % (Manual) 1 (0-10) % Basophils % (Manual) 1 (0-2) % Platelet Estimate Normal (NORMAL) Hypochromasia (manual) Slight Poikilocytosis (manual Slight Anisocytosis (manual) Slight Ovalocytes Slight Selma Cells Slight PT (9.7-12.2) SECONDS INR APTT (21-34) SECONDS Puncture Site Rr pCO2 29 L (35-45) mm/Hg pO2 132 H (80-100) mm/Hg HCO3 23.3 (21-28) mmol/L ABG pH 7.46 H (7.35-7.45) ABG Total CO2 21.5 L (22-28) mmol/L ABG O2 Saturation 99.7 H (95-98) % ABG Base Excess -2.1 L (-2.0-3.0) mmol/L Singh Test Pos ABG Potassium 4.0 (3.6-5.2) mmol/L A-a O2 Difference 117.0 mm/Hg Respiratory Index 0.9 Glucose 266 H (65-105) mg/dl Lactate 1.1 (0.7-2.1) mmol/L Vent Mode Prvc Mechanical Rate 12 FiO2 40.0 % Tidal Volume 400 PEEP 5 Sodium 136.0 129 L (132-148) mmol/L Potassium 4.1 (3.6-5.2) mmol/L Chloride 107.0 100 (98-107) mmol/L Carbon Dioxide 20 L (22-30) mmol/L Anion Gap 13 (10-20) BUN 18 H (7-17) mg/dL Creatinine 0.5 L (0.7-1.2) mg/dL Est GFR ( Amer) > 60 Est GFR (Non-Af Amer) > 60 POC Glucose (mg/dL) (65-110) mg/dL Random Glucose 207 H (65-105) mg/dL Calcium 7.3 L (8.6-10.4) mg/dl Phosphorus 2.9 (2.5-4.5) mg/dL Magnesium 1.8 (1.6-2.3) mg/dL Total Bilirubin 0.7 (0.2-1.3) mg/dL AST 19 (14-36) U/L ALT 23 (9-52) U/L Alkaline Phosphatase 84 (38-126) U/L Total Protein 6.2 L (6.3-8.3) g/dL Albumin 2.7 L (3.5-5.0) g/dL Globulin 3.4 (2.2-3.9) gm/dL Albumin/Globulin Ratio 0.8 L (1.0-2.1) Arterial Blood Potassium 4.0 (3.6-5.2) mmol/L Blood Type Antibody Screen Antibody Identification IRA, Poly Interpret (NEGATIVE) Crossmatch 02/04/17 02/04/17 02/03/17 Range/Units 05:21 00:08 17:42 WBC (4.8-10.8) K/uL RBC (3.80-5.20) Mil/uL Hgb (11.0-16.0) g/dL Hct (34.0-47.0) % MCV (81.0-99.0) fL MCH (27.0-31.0) pg MCHC (33.0-37.0) g/dL RDW (11.5-14.5) % Plt Count (130-400) K/uL MPV (7.2-11.7) fL Neut % (Auto) (50.0-75.0) % Lymph % (Auto) (20.0-40.0) % Fannin % (Auto) (0.0-10.0) % Eos % (Auto) (0.0-4.0) % Baso % (Auto) (0.0-2.0) % Neut # (1.8-7.0) K/uL Lymph # (1.0-4.3) K/uL Fannin # (0.0-0.8) K/uL Eos # (0.0-0.7) K/uL Baso # (0.0-0.2) K/uL Neutrophils % (Manual) (50-75) % Band Neutrophils % (0-2) % Lymphocytes % (Manual) (20-40) % Monocytes % (Manual) (0-10) % Basophils % (Manual) (0-2) % Platelet Estimate (NORMAL) Hypochromasia (manual) Poikilocytosis (manual Anisocytosis (manual) Ovalocytes Selma Cells PT (9.7-12.2) SECONDS INR APTT (21-34) SECONDS Puncture Site pCO2 (35-45) mm/Hg pO2 (80-100) mm/Hg HCO3 (21-28) mmol/L ABG pH (7.35-7.45) ABG Total CO2 (22-28) mmol/L ABG O2 Saturation (95-98) % ABG Base Excess (-2.0-3.0) mmol/L Singh Test ABG Potassium (3.6-5.2) mmol/L A-a O2 Difference mm/Hg Respiratory Index Glucose (65-105) mg/dl Lactate (0.7-2.1) mmol/L Vent Mode Mechanical Rate FiO2 % Tidal Volume PEEP Sodium (132-148) mmol/L Potassium (3.6-5.2) mmol/L Chloride (98-107) mmol/L Carbon Dioxide (22-30) mmol/L Anion Gap (10-20) BUN (7-17) mg/dL Creatinine (0.7-1.2) mg/dL Est GFR ( Amer) Est GFR (Non-Af Amer) POC Glucose (mg/dL) 196 H 263 H 162 H (65-110) mg/dL Random Glucose (65-105) mg/dL Calcium (8.6-10.4) mg/dl Phosphorus (2.5-4.5) mg/dL Magnesium (1.6-2.3) mg/dL Total Bilirubin (0.2-1.3) mg/dL AST (14-36) U/L ALT (9-52) U/L Alkaline Phosphatase (38-126) U/L Total Protein (6.3-8.3) g/dL Albumin (3.5-5.0) g/dL Globulin (2.2-3.9) gm/dL Albumin/Globulin Ratio (1.0-2.1) Arterial Blood Potassium (3.6-5.2) mmol/L Blood Type Antibody Screen Antibody Identification IRA, Poly Interpret (NEGATIVE) Crossmatch Laboratory Results - last 24 hr 02/03/17 02/04/17 02/04/17 17:42 00:08 05:21 WBC RBC Hgb Hct MCV MCH MCHC RDW Plt Count MPV Neut % (Auto) Lymph % (Auto) Fannin % (Auto) Eos % (Auto) Baso % (Auto) Neut # Lymph # Fannin # Eos # Baso # Neutrophils % (Manual) Band Neutrophils % Lymphocytes % (Manual) Monocytes % (Manual) Basophils % (Manual) Platelet Estimate Hypochromasia (manual) Poikilocytosis (manual Anisocytosis (manual) Ovalocytes Sofia Cells PT INR APTT Puncture Site pCO2 pO2 HCO3 ABG pH ABG Total CO2 ABG O2 Saturation ABG Base Excess Singh Test ABG Potassium A-a O2 Difference Respiratory Index Glucose Lactate Vent Mode Mechanical Rate FiO2 Tidal Volume PEEP Sodium Potassium Chloride Carbon Dioxide Anion Gap BUN Creatinine Est GFR ( Amer) Est GFR (Non-Af Amer) POC Glucose (mg/dL) 162 H 263 H 196 H Random Glucose Calcium Phosphorus Magnesium Total Bilirubin AST ALT Alkaline Phosphatase Total Protein Albumin Globulin Albumin/Globulin Ratio Arterial Blood Potassium Blood Type Antibody Screen Antibody Identification IRA, Poly Interpret Crossmatch 02/04/17 02/04/17 02/04/17 06:03 06:03 10:56 WBC 11.4 H RBC 3.34 L Hgb 9.3 L Hct 27.8 L MCV 83.2 MCH 27.8 MCHC 33.4 RDW 15.5 H Plt Count 362 D MPV 7.7 Neut % (Auto) 94.3 H Lymph % (Auto) 2.8 L Fannin % (Auto) 2.6 Eos % (Auto) 0.0 Baso % (Auto) 0.3 Neut # 10.8 H Lymph # 0.3 L Fannin # 0.3 Eos # 0.0 Baso # 0.0 Neutrophils % (Manual) 81 H Band Neutrophils % 15 H* Lymphocytes % (Manual) 2 L Monocytes % (Manual) 1 Basophils % (Manual) 1 Platelet Estimate Normal Hypochromasia (manual) Slight Poikilocytosis (manual Slight Anisocytosis (manual) Slight Ovalocytes Slight Selma Cells Slight PT INR APTT Puncture Site Rr pCO2 29 L pO2 132 H HCO3 23.3 ABG pH 7.46 H ABG Total CO2 21.5 L ABG O2 Saturation 99.7 H ABG Base Excess -2.1 L Singh Test Pos ABG Potassium 4.0 A-a O2 Difference 117.0 Respiratory Index 0.9 Glucose 266 H Lactate 1.1 Vent Mode Prvc Mechanical Rate 12 FiO2 40.0 Tidal Volume 400 PEEP 5 Sodium 129 L 136.0 Potassium 4.1 Chloride 100 107.0 Carbon Dioxide 20 L Anion Gap 13 BUN 18 H Creatinine 0.5 L Est GFR ( Amer) > 60 Est GFR (Non-Af Amer) > 60 POC Glucose (mg/dL) Random Glucose 207 H Calcium 7.3 L Phosphorus 2.9 Magnesium 1.8 Total Bilirubin 0.7 AST 19 ALT 23 Alkaline Phosphatase 84 Total Protein 6.2 L Albumin 2.7 L Globulin 3.4 Albumin/Globulin Ratio 0.8 L Arterial Blood Potassium 4.0 Blood Type Antibody Screen Antibody Identification IRA, Poly Interpret Crossmatch 02/04/17 02/04/17 02/04/17 11:15 11:38 11:38 WBC RBC Hgb Hct MCV MCH MCHC RDW Plt Count MPV Neut % (Auto) Lymph % (Auto) Fannin % (Auto) Eos % (Auto) Baso % (Auto) Neut # Lymph # Fannin # Eos # Baso # Neutrophils % (Manual) Band Neutrophils % Lymphocytes % (Manual) Monocytes % (Manual) Basophils % (Manual) Platelet Estimate Hypochromasia (manual) Poikilocytosis (manual Anisocytosis (manual) Ovalocytes Selma Cells PT 13.8 H INR 1.2 APTT 34 Puncture Site pCO2 pO2 HCO3 ABG pH ABG Total CO2 ABG O2 Saturation ABG Base Excess Singh Test ABG Potassium A-a O2 Difference Respiratory Index Glucose Lactate Vent Mode Mechanical Rate FiO2 Tidal Volume PEEP Sodium Potassium Chloride Carbon Dioxide Anion Gap BUN Creatinine Est GFR ( Amer) Est GFR (Non-Af Amer) POC Glucose (mg/dL) 259 H Random Glucose Calcium Phosphorus Magnesium Total Bilirubin AST ALT Alkaline Phosphatase Total Protein Albumin Globulin Albumin/Globulin Ratio Arterial Blood Potassium Blood Type O POSITIVE Antibody Screen Positive Antibody Identification Cancelled IRA, Poly Interpret Negative Crossmatch See Detail Assessment/Plan (1) Respiratory failure Current Visit: Yes Status: Acute (2) Pneumonia Current Visit: Yes Status: Acute Attending/Attestation - Attestation I have personally seen and examined this patient.: Yes I have fully participated in the care of the patient.: Yes I have reviewed all pertinent clinical information: Yes Notes (Text): 02/04/17 17:21 Patient seen and examined in the intensive care unit. Case discussed with house staff in the morning rounds Status post revision of gastrostomy tube Status post tracheostomy on ventilatory support Continue antibiotics Consider LTAC Feeding on hold Lopressor as needed
[2017-02-04 11:59] LABS: INR 1.2; PROTHROMBIN TIME 13.8 SECONDS (9.7-12.2)
[2017-02-04] MEDS ORDERED: Lactated Ringer's 1,000 ML IV ONE (13:30)
[2017-02-04] MEDS ORDERED: Midazolam 2 MG/2 ML VIAL ONE (13:34)
[2017-02-04] MEDS ORDERED: Rocuronium 10 mg/ml (5 ml) ONE (13:34)
[2017-02-04] MEDS ORDERED: Phenylephrine 10 mg/ml Inj ONE (13:44)
[2017-02-04] MEDS ORDERED: Esmolol 100 mg/10ml Inj IV ONE (13:47)
--- NOTE | 2017-02-04 15:14 | PCM.SURG1 ---
Surgeon's Initial Post Op Note - Surgeon's Notes Surgeon: Dr Hunter Job Training Supervisor: Dr Guevara PGY3 Type of Anesthesia: General Tracheostomy Pre-Operative Diagnosis: dislodged G tube Operative Findings: deflated balloon Post-Operative Diagnosis: as above Operation Performed: gastrostomy tube revision Specimen/Specimens Removed: ascites culture Estimated Blood Loss: EBL {In ML}: 5 Blood Products Given: N/A Drains Used: No Drains Post-Op Condition: Fair Date of Surgery/Procedure: 02/04/17 Time of Surgery/Procedure: 15:14
[2017-02-04] MEDS: Metoprolol 1 mg/ml Inj IVP SCH (17:49)
--- NOTE | 2017-02-04 18:00 | PN ---
DATE: SUBJECTIVE: The patient was taken back to the OR for revision of her gastrostomy tube placement. No reported hypertension or ventricular arrhythmia. PHYSICAL EXAMINATION: VITAL SIGNS: Blood pressure 115/46, heart rate 107, temperature 99.8, respirations 18. HEENT: Pale conjunctivae. CHEST: Bilateral rhonchi. HEART: S1 and S2, regular. EXTREMITIES: Contraction deformity. LABORATORY DATA: Today's hemoglobin and hematocrit 9.3 and 27.8, white count 11.4, bands are 15% and platelet count 362,000 . SMA-7: Sodium 129, potassium 4.1, chloride 100, CO2 of 20, glucose 107, BUN 18, creatinine 0.5. Abdominal x-ray done today revealed numerous tubes and catheter evident. Gastric tube positioning cannot be adequately assessed on this limited provided view. Nonspecific bowel gas pattern. Midline surgical lizette. ASSESSMENT: 1. Recurrent respiratory failure. 2. Congestive heart failure. 3. History of supraventricular tachycardia prior to this admission. 4. Status post tracheostomy and gastrostomy tube placement with revision of the gastrostomy tube today because of sanguinous drainage. 5. Anemia. 6. Uncontrolled diabetes mellitus. 7. Urinary tract infection. RECOMMENDATIONS: Aspirin and Lovenox are still on hold because of the bleeding from the gastrostomy tube since yesterday. Continue IV Zyvox at 300 mg q. 12 hours and IV Azactam at 1 g q.8 hours. All other oral medications are on hold. Florian Crowell MD
--- NOTE | 2017-02-04 19:51 | CP.PCM.PN ---
Subjective - Date & Time of Evaluation Date of Evaluation: 02/04/17 Time of Evaluation: 19:51 - Subjective Subjective: TMAX 99.1 EVENTS NOTED S/P GT -REVISION. TRACH IN POSITION. Objective - Vital Signs/Intake and Output Vital Signs (last 24 hours): Temp Pulse Resp BP Pulse Ox 99.1 F 107 H 13 108/49 L 100 02/04/17 16:00 02/04/17 19:34 02/04/17 19:34 02/04/17 19:34 02/04/17 19:34 Intake and Output: 02/04/17 02/05/17 18:59 06:59 Intake Total 600 0 Output Total 400 0 Balance 200 0 - Medications Medications: Current Medications Acetaminophen (Tylenol 325mg Tab) 650 mg PO Q6 PRN PRN Reason: Pain, moderate (4-7) Last Admin: 02/03/17 20:39 Dose: 650 mg Albuterol/Ipratropium (Duoneb 3 Mg/0.5 Mg (3 Ml) Ud) 3 ml INH RQ6 [facility] Last Admin: 02/04/17 19:37 Dose: 3 ml Aspirin (Aspirin Chewable) 81 mg PO DAILY [facility] Last Admin: 02/04/17 09:15 Dose: Not Given Enalapril Maleate (Vasotec) 5 mg PO DAILY [facility] Last Admin: 02/04/17 09:26 Dose: Not Given Enoxaparin Sodium (Lovenox) 40 mg SC DAILY [facility] Last Admin: 02/02/17 10:20 Dose: Not Given Levetiracetam 750 mg/ Sodium (Chloride) 107.5 mls @ 420 mls/hr IVPB Q12H [facility] Last Admin: 02/04/17 12:20 Dose: 420 mls/hr Linezolid (Zyvox 600mg/300ml D5w) 600 mg in 300 mls @ 200 mls/hr IVPB Q12 [facility] Last Admin: 02/04/17 10:06 Dose: 200 mls/hr Aztreonam 1 gm/ Sodium (Chloride) 100 mls @ 100 mls/hr IVPB Q8H [facility] Last Admin: 02/04/17 17:04 Dose: 100 mls/hr Insulin Aspart (Novolog) 0 unit SC Q6 [facility] PRN Reason: Protocol Last Admin: 02/04/17 17:59 Dose: 4 unit Insulin Glargine (Lantus) 20 unit SC [facility] Last Admin: 02/01/17 22:30 Dose: Not Given Levothyroxine Sodium (Synthroid) 25 mcg PO DAILY@0630 [facility] Last Admin: 02/04/17 06:44 Dose: 25 mcg Lorazepam (Ativan) 2 mg IVP Q6H PRN PRN Reason: Anxiety Metoprolol Tartrate (Lopressor) 5 mg IVP Q8H [facility] Last Admin: 02/04/17 17:49 Dose: 5 mg Morphine Sulfate (Morphine) 1 mg IVP Q4 PRN PRN Reason: Pain, moderate (4-7) Last Admin: 02/03/17 23:00 Dose: 1 mg Nystatin (Nystop Topical Powder) 1 applic TOP BID [facility] Last Admin: 02/04/17 17:04 Dose: 1 applic Pantoprazole Sodium (Protonix Inj) 40 mg IVP DAILY [facility] Last Admin: 02/04/17 09:24 Dose: 40 mg Rosuvastatin Calcium (Crestor) 20 mg PO [facility] Last Admin: 02/03/17 21:27 Dose: 20 mg - Labs Labs: 02/04/17 06:03 02/04/17 06:03 PT 13.8 SECONDS (9.7-12.2) H 02/04/17 11:38 INR 1.2 02/04/17 11:38 APTT 34 SECONDS (21-34) 02/04/17 11:38 - Constitutional Appears: No Acute Distress - Head Exam Head Exam: NORMAL INSPECTION - Eye Exam Eye Exam: PERRL - ENT Exam ENT Exam: Normal Oropharynx - Neck Exam Neck Exam: Normal Inspection - Respiratory Exam Respiratory Exam: Clear to Ausculation Bilateral - Cardiovascular Exam Cardiovascular Exam: Irregular Rhythm, +S1, +S2 - GI/Abdominal Exam GI & Abdominal Exam: Soft, Normal Bowel Sounds (GT IN PLACE.) - Extremities Exam Extremities Exam: absent: Calf Tenderness, Pedal Edema - Neurological Exam Neurological Exam: Awake - Psychiatric Exam Psychiatric exam: Flat Affect - Skin Skin Exam: Warm Assessment and Plan (1) Sepsis Assessment & Plan: ON IV ZYVOX 600MG IV Q 12HRLY. 01/29/17. CONTINUE IV AZACTAM 1GM IV Q 8HRLY. 01/18/17 FOR NOW IN VIEW OF RECENT MANIPULATION OF GT./AND BANDEMIA. Status: Acute (2) Respiratory failure Status: Acute (3) Pneumonia Status: Acute (4) Hypertension Status: Chronic (5) UTI (urinary tract infection) due to Enterococcus Assessment & Plan: Follow-up repeat UA urine cultures. ON IV ZYVOX 600MG IV Q 12HRLY. Status: Acute (6) Hepatitis C antibody test positive Status: Acute
--- NOTE | 2017-02-04 23:12 | CP.PCM.PN ---
Subjective - Date & Time of Evaluation Date of Evaluation: 02/04/17 Time of Evaluation: 20:00 - Subjective Subjective: Patient seen and examined at bedside.had another Or today, she is currently sedated and tachycardic with HR of 130 GCS10T ([id number]). Breakthrough bleeding. vice president financial changed dressing overnight. Dressings were changed at bedside with steri strips at incision site. Area of coagulated blood at incision site. Patient was seen to be distended. Patient has trach in place on vent and was not able to speak at this time. Patient to be brought to OR around 13:00 today for revision of G tube. Abdominal Xray s/p omnipaque insertion this morning shows possible extravasation. Consent for OR and anesthesia in chart. 2 u PRBC ordered with type and cross for transfusion if necessary post procedure Objective - Vital Signs/Intake and Output Vital Signs (last 24 hours): Temp Pulse Resp BP Pulse Ox 99.1 F 107 H 13 108/49 L 100 02/04/17 16:00 02/04/17 19:34 02/04/17 19:34 02/04/17 19:34 02/04/17 19:34 Intake and Output: 02/04/17 02/05/17 18:59 06:59 Intake Total 600 0 Output Total 400 0 Balance 200 0 - Medications Medications: Current Medications Acetaminophen (Tylenol 325mg Tab) 650 mg PO Q6 PRN PRN Reason: Pain, moderate (4-7) Last Admin: 02/03/17 20:39 Dose: 650 mg Albuterol/Ipratropium (Duoneb 3 Mg/0.5 Mg (3 Ml) Ud) 3 ml INH RQ6 [facility] Last Admin: 02/04/17 19:37 Dose: 3 ml Aspirin (Aspirin Chewable) 81 mg PO DAILY [facility] Last Admin: 02/04/17 09:15 Dose: Not Given Enalapril Maleate (Vasotec) 5 mg PO DAILY [facility] Last Admin: 02/04/17 09:26 Dose: Not Given Enoxaparin Sodium (Lovenox) 40 mg SC DAILY [facility] Last Admin: 02/02/17 10:20 Dose: Not Given Levetiracetam 750 mg/ Sodium (Chloride) 107.5 mls @ 420 mls/hr IVPB Q12H [facility] Last Admin: 12/29/17 12:20 Dose: 420 mls/hr Linezolid (Zyvox 600mg/300ml D5w) 600 mg in 300 mls @ 200 mls/hr IVPB Q12 [facility] Last Admin: 02/04/17 21:19 Dose: 200 mls/hr Aztreonam 1 gm/ Sodium (Chloride) 100 mls @ 100 mls/hr IVPB Q8H [facility] Last Admin: 02/04/17 17:04 Dose: 100 mls/hr Insulin Aspart (Novolog) 0 unit SC Q6 [facility] PRN Reason: Protocol Last Admin: 02/04/17 17:59 Dose: 4 unit Insulin Glargine (Lantus) 20 unit SC [facility] Last Admin: 02/01/17 22:30 Dose: Not Given Levothyroxine Sodium (Synthroid) 25 mcg PO DAILY@0630 [facility] Last Admin: 02/04/17 06:44 Dose: 25 mcg Lorazepam (Ativan) 2 mg IVP Q6H PRN PRN Reason: Anxiety Metoprolol Tartrate (Lopressor) 5 mg IVP Q8H [facility] Last Admin: 02/04/17 17:49 Dose: 5 mg Morphine Sulfate (Morphine) 1 mg IVP Q4 PRN PRN Reason: Pain, moderate (4-7) Last Admin: 02/03/17 23:00 Dose: 1 mg Nystatin (Nystop Topical Powder) 1 applic TOP BID [facility] Last Admin: 02/04/17 17:04 Dose: 1 applic Pantoprazole Sodium (Protonix Inj) 40 mg IVP DAILY [facility] Last Admin: 02/04/17 09:24 Dose: 40 mg Rosuvastatin Calcium (Crestor) 20 mg PO [facility] Last Admin: 02/04/17 21:19 Dose: 20 mg - Labs Labs: 02/04/17 06:03 02/04/17 06:03 PT 13.8 SECONDS (9.7-12.2) H 02/04/17 11:38 INR 1.2 02/04/17 11:38 APTT 34 SECONDS (21-34) 02/04/17 11:38 - Constitutional Appears: No Acute Distress - Head Exam Head Exam: ATRAUMATIC, NORMAL INSPECTION, NORMOCEPHALIC - Eye Exam Eye Exam: EOMI, Normal appearance, PERRL Pupil Exam: NORMAL ACCOMODATION, PERRL - Respiratory Exam Respiratory Exam: Decreased Breath Sounds, Rales, Rhonchi - Cardiovascular Exam Cardiovascular Exam: Tachycardia, +S1, +S2 - GI/Abdominal Exam GI & Abdominal Exam: Soft, Normal Bowel Sounds. absent: Tenderness Assessment and Plan (1) Respiratory failure Assessment & Plan: remains on mechanical ventilator Status: Acute (2) Seizure disorder Status: Acute (3) Uncontrolled blood glucose Status: Acute (4) Systolic CHF Status: Acute (5) S/P bronchoalveolar lavage Status: Acute
--- NOTE | 2017-02-05 00:21 | OP ---
PROCEDURE DATE: 02/04/2017 PREOPERATIVE DIAGNOSIS: Malfunction of gastrostomy tube. POSTOPERATIVE DIAGNOSIS: Malfunction of gastrostomy tube. PROCEDURE CARRIED OUT: Exploratory laparotomy and revision of gastrostomy tube. SURGEON: Elver Hunter Jr., MD. BATH MIXER: Dr. Guevara. ANESTHESIOLOGIST: Mr. Baudilio Sadler. INDICATIONS: The patient is a woman who underwent placement of a surgical gastrostomy two days ago, states she has tachycardia. X-rays confirmed that the tube was no longer in the stomach. OPERATIVE FINDINGS: Most striking finding was that the balloon on the gastrostomy tube had been deflated and the tube was in the space between the stomach wall and the anterior abdominal wall. Because of this, there was leakage of fluid, etc. into the peritoneal cavity. Initially, we cultured this. We irrigated this out multiple times and suctioned as much of fluids out as conceivable. We then replaced the gastrostomy tube in the same gastrostomy incision, through the same skin incision. Initially, there was some difficulty with this, we have to do it again, and eventually we placed a #24 tube clearly into the stomach and secured it to the abdominal wall with multiple sutures. The balloon was not deflated. The balloon was fully functional at the it was removed. The abdomen was then closed with running sutures of Novafil and PDS, and the skin was closed with skin clips. Blood loss for the procedure was 25 mL. The operation carried out is revision of gastrostomy. Major finding is at the balloon on the tube had deflated and this led to its retraction into the layers of the abdominal wall. Elver Hunter Jr., MD
[2017-02-05] MEDS: (Novolog) Insulin Aspart, Recombinant 100 u/ml 10 ml vial SC SCH ×4 (00:39→18:55)
[2017-02-05] MEDS: Aztreonam 1 GM in Sodium Chloride 0.9% 100 ML IVPB SCH ×3 (01:19→17:09)
[2017-02-05] MEDS: Metoprolol 1 mg/ml Inj IVP SCH ×4 (01:25→17:09)
[2017-02-05] MEDS: Albuterol-Ipratrop 3 mg / 0.5 (3 ml) UD INH SCH ×4 (02:05→20:02)
[2017-02-05 05:29] LABS: ABG ALLEN TEST POS; ARTERIAL BLOOD GAS HCO3 12.4 mmol/L (21-28); ARTERIAL BLOOD GAS O2 SAT 99.5 % (95-98); ARTERIAL BLOOD GAS PCO2 14 mm/Hg (35-45); ARTERIAL BLOOD GAS PH 7.32 (7.35-7.45); ARTERIAL BLOOD GAS PO2 79 mm/Hg (80-100); ARTERIAL BLOOD GAS TCO2 7.6 mmol/L (22-28)
[2017-02-05] MEDS: Levothyroxine 25 MCG TAB PO SCH (06:24)
[2017-02-05 06:36] LABS: BASO % 0.2 % (0.0-2.0); HEMOGLOBIN 8.1 g/dL (11.0-16.0); LYMPH # 0.8 K/uL (1.0-4.3); LYMPH % 6.9 % (20.0-40.0); MEAN CELL VOLUME 82.9 fL (81.0-99.0); MEAN CORPUSCULAR HEMOGLOBIN 28.2 pg (27.0-31.0); MEAN PLATELET VOLUME 7.4 fL (7.2-11.7); MONO # 0.5 K/uL (0.0-0.8); MONO % 3.9 % (0.0-10.0); NEUT # 10.6 K/uL (1.8-7.0); PLATELET COUNT 329 K/uL (130-400); RBC 2.88 Mil/uL (3.80-5.20); RED CELL DISTRIBUTION WIDTH 16.2 % (11.5-14.5); WHITE BLOOD COUNT 11.9 K/uL (4.8-10.8)
[2017-02-05 06:50] LABS: ALB/GLOB RATIO 0.8 (1.0-2.1); ALBUMIN 2.4 g/dL (3.5-5.0); ALT/SGPT 22 U/L (9-52); AST/SGOT 12 U/L (14-36); BLOOD UREA NITROGEN 29 mg/dL (7-17); CALCIUM 6.6 mg/dl (8.6-10.4); GFR AFRICAN-AMERICAN > 60; GFR NON-AFRICAN AMERICAN > 60; MAGNESIUM 1.9 mg/dL (1.6-2.3)
[2017-02-05] MEDS ORDERED: Sodium Chloride 0.9% 500 ML IV ONE ×2 (08:30→08:45)
--- NOTE | 2017-02-05 08:34 | CP.PCM.PN ---
Subjective - Date & Time of Evaluation Date of Evaluation: 02/05/17 Time of Evaluation: 08:31 - Subjective Subjective: Gen Sx: Dr Hunter Pt S&E. POD#1 s/p G-tube revision. No bleeding. No output in bag. No apparent distress. Objective - Vital Signs/Intake and Output Vital Signs (last 24 hours): Temp Pulse Resp BP Pulse Ox 98.2 F 147 H 20 114/56 L 100 02/05/17 04:00 02/05/17 07:50 02/05/17 07:50 02/05/17 07:50 02/05/17 07:50 Intake and Output: 02/05/17 02/05/17 06:59 18:59 Intake Total 400 0 Output Total 0 0 Balance 400 0 - Medications Medications: Current Medications Acetaminophen (Tylenol 325mg Tab) 650 mg PO Q6 PRN PRN Reason: Pain, moderate (4-7) Last Admin: 02/03/17 20:39 Dose: 650 mg Albuterol/Ipratropium (Duoneb 3 Mg/0.5 Mg (3 Ml) Ud) 3 ml INH RQ6 [facility] Last Admin: 02/05/17 07:42 Dose: Not Given Aspirin (Aspirin Chewable) 81 mg PO DAILY [facility] Last Admin: 02/04/17 09:15 Dose: Not Given Enalapril Maleate (Vasotec) 5 mg PO DAILY [facility] Last Admin: 02/04/17 09:26 Dose: Not Given Enoxaparin Sodium (Lovenox) 40 mg SC DAILY [facility] Last Admin: 02/02/17 10:20 Dose: Not Given Levetiracetam 750 mg/ Sodium (Chloride) 107.5 mls @ 420 mls/hr IVPB Q12H [facility] Last Admin: 02/05/17 01:00 Dose: 420 mls/hr Linezolid (Zyvox 600mg/300ml D5w) 600 mg in 300 mls @ 200 mls/hr IVPB Q12 [facility] Last Admin: 02/04/17 21:19 Dose: 200 mls/hr Aztreonam 1 gm/ Sodium (Chloride) 100 mls @ 100 mls/hr IVPB Q8H [facility] Last Admin: 02/05/17 01:19 Dose: 100 mls/hr Sodium Chloride (Sodium Chloride 0.9%) 500 mls @ 1,000 mls/hr IV .Q30M ONE Stop: 02/05/17 08:59 Insulin Aspart (Novolog) 0 unit SC Q6 [facility] PRN Reason: Protocol Last Admin: 02/05/17 06:00 Dose: Not Given Insulin Glargine (Lantus) 20 unit SC [facility] Last Admin: 02/01/17 22:30 Dose: Not Given Levothyroxine Sodium (Synthroid) 25 mcg PO DAILY@0630 [facility] Last Admin: 02/05/17 06:24 Dose: Not Given Lorazepam (Ativan) 2 mg IVP Q6H PRN PRN Reason: Anxiety Metoprolol Tartrate (Lopressor) 5 mg IVP Q8H [facility] Last Admin: 02/05/17 01:27 Dose: Not Given Morphine Sulfate (Morphine) 1 mg IVP Q4 PRN PRN Reason: Pain, moderate (4-7) Last Admin: 02/03/17 23:00 Dose: 1 mg Nystatin (Nystop Topical Powder) 1 applic TOP BID [facility] Last Admin: 02/04/17 17:04 Dose: 1 applic Pantoprazole Sodium (Protonix Inj) 40 mg IVP DAILY [facility] Last Admin: 02/04/17 09:24 Dose: 40 mg Rosuvastatin Calcium (Crestor) 20 mg PO [facility] Last Admin: 02/04/17 21:19 Dose: 20 mg - Labs Labs: 02/05/17 06:24 02/05/17 06:19 PT 13.8 SECONDS (9.7-12.2) H 02/04/17 11:38 INR 1.2 02/04/17 11:38 APTT 34 SECONDS (21-34) 02/04/17 11:38 - Constitutional Appears: Non-toxic, Chronically Ill - ENT Exam ENT Exam: Mucous Membranes Dry - Respiratory Exam Additional comments: trach c/d/i - Cardiovascular Exam Cardiovascular Exam: Tachycardia - GI/Abdominal Exam GI & Abdominal Exam: Soft. absent: Distended, Firm, Tenderness Additional comments: dressing c/d/i Assessment and Plan - Assessment and Plan (Free Text) Assessment: 81F s/p G-tube revision Plan: cont G-tube drain to gravity with leger bag hold on tube feeds for now - possibly tonight will d/w attending Ismael, PGY3
[2017-02-05 08:54] LABS: ARTERIAL BLOOD GAS HCO3 25.1 mmol/L (21-28); ARTERIAL BLOOD GAS O2 SAT 99.7 % (95-98); ARTERIAL BLOOD GAS PCO2 24 mm/Hg (35-45); ARTERIAL BLOOD GAS PH 7.55 (7.35-7.45); ARTERIAL BLOOD GAS PO2 150 mm/Hg (80-100); ARTERIAL BLOOD GAS TCO2 21.7 mmol/L (22-28)
[2017-02-05 09:07] LABS: BANDS 13 % (0-2); LYMPHOCYTE 8 % (20-40); MONOCYTE 10 % (0-10); NEUTROPHIL 69 % (50-75); TOTAL CELLS COUNTED 100
[2017-02-05 09:08] LABS: ANISOCYTOSIS SLIGHT; HYPOCHROMIC SLIGHT; PLATELET ESTIMATE NORMAL (NORMAL); POLYCHROMIC SLIGHT
[2017-02-05 09:09] LABS: OVALOCYTES SLIGHT; POIKILOCYTOSIS SLIGHT; SCHISTOCYTES SLIGHT
[2017-02-05 09:11] LABS: GIANT PLATELETS PRESENT; LARGE PLATELETS PRESENT
[2017-02-05 09:12] LABS: BURR CELLS SLIGHT; TOXIC GRANULATION PRESENT
--- NOTE | 2017-02-05 09:57 | CP.CCUPN ---
CCU Subjective - Physician Review Events Since Last Encounter (Free Text): 02/05/17 09:54 patient seen and examined in the intensive care unit. Status post tracheostomy Status post revision of gt tube PEG feeding on hold TACHYCARDIA Afebrile CCU Objective - Vital Signs / Intake & Output Vital Signs (Last 4 hours): Vital Signs Temp Pulse Resp BP Pulse Ox 02/05/17 08:50 139 H 20 118/65 100 02/05/17 08:35 146 H 20 100/55 L 100 02/05/17 08:20 148 H 21 113/56 L 100 02/05/17 08:05 146 H 20 100/52 L 100 02/05/17 08:00 99.6 F 02/05/17 07:50 147 H 20 114/56 L 100 02/05/17 07:35 145 H 20 101/52 L 100 02/05/17 07:20 146 H 20 101/50 L 100 02/05/17 07:05 145 H 20 104/55 L 100 02/05/17 07:00 146 H 20 100 02/05/17 06:50 104 H 20 98/47 L 100 02/05/17 06:35 103 H 20 102/53 L 100 02/05/17 06:20 100 H 20 92/43 L 100 02/05/17 06:05 100 H 14 95/45 L 100 02/05/17 06:00 101 H 15 100 Intake and Output (Last 8hrs): Intake & Output 02/04/17 02/05/17 02/05/17 22:59 06:59 14:59 Intake Total 300 200 500 Output Total 100 0 0 Balance 200 200 500 Intake: Intake, IV Amount 300 200 500 Left Distal Port Internal 300 200 500 Jugular Output: Gastric Amount 0 Stomach 0 Urine 100 0 0 Urine, Voided 100 0 0 Other: # Bowel Movements 0 - Physical Exam Head: Positive for: Atraumatic, Normocephalic Pupils: Positive for: PERRL Extroacular Muscles: Positive for: EOMI Mouth: Positive for: Moist Mucous Membranes, Other (trach) Respiratory/Chest: Positive for: Wheezes, Decreased Breath Sounds, Rhonchi, Other (intubated). Negative for: Respiratory Distress, Accessory Muscle Use Cardiovascular: Positive for: Regular Rate and Rhythm, Murmurs, Normal S1, S2 Abdomen: Positive for: Feeding Tubes (gastrostomy tube). Negative for: Tenderness, Distention, Peritoneal Signs Upper Extremity: Positive for: Normal Inspection. Negative for: Edema Lower Extremity: Positive for: Normal Inspection. Negative for: Edema Neurological: Positive for: Other (intubated). Negative for: GCS=15 (GCS 11T) Skin: Positive for: Warm Psychiatric: Positive for: Alert, Other (intubated) - Medications Active Medications: Active Medications Generic Name Dose Route Start Last Admin Trade Name Freq PRN Reason Stop Dose Admin Acetaminophen 650 mg 01/17/17 21:49 02/03/17 20:39 Tylenol 325mg Tab PO 650 mg Q6 PRN Administration Pain, moderate (4-7) Albuterol/Ipratropium 3 ml 01/31/17 20:00 02/05/17 07:42 Duoneb 3 Mg/0.5 Mg (3 Ml) Ud INH Not Given RQ6 [facility] Aspirin 81 mg 01/28/17 10:00 02/05/17 09:41 Aspirin Chewable PO 81 mg DAILY [facility] Administration Enalapril Maleate 5 mg 01/26/17 12:45 02/04/17 09:26 Vasotec PO Not Given DAILY [facility] Enoxaparin Sodium 40 mg 02/01/17 10:00 02/02/17 10:20 Lovenox SC Not Given DAILY [facility] Levetiracetam 750 mg/ Sodium 107.5 mls @ 420 mls/hr 01/27/17 13:00 02/05/17 01:00 Chloride IVPB 420 mls/hr Q12H [facility] Administration Linezolid 600 mg in 300 mls @ 200 mls/hr 01/29/17 22:00 02/04/17 21:19 Zyvox 600mg/300ml D5w IVPB 200 mls/hr Q12 [facility] Administration Aztreonam 1 gm/ Sodium 100 mls @ 100 mls/hr 01/31/17 10:00 02/05/17 09:48 Chloride IVPB 100 mls/hr Q8H [facility] Administration Insulin Aspart 0 unit 01/25/17 12:00 02/05/17 06:00 Novolog SC Not Given Q6 [facility] Protocol Insulin Glargine 20 unit 01/25/17 22:00 02/01/17 22:30 Lantus SC Not Given HS [facility] Levothyroxine Sodium 25 mcg 01/18/17 06:30 02/05/17 06:24 Synthroid PO Not Given DAILY@0630 [facility] Lorazepam 2 mg 02/02/17 20:29 Ativan IVP Q6H PRN Anxiety Metoprolol Tartrate 5 mg 02/04/17 18:00 02/05/17 09:00 Lopressor IVP 5 mg Q8H [facility] Administration Morphine Sulfate 1 mg 02/03/17 14:53 02/03/17 23:00 Morphine IVP 1 mg Q4 PRN Administration Pain, moderate (4-7) Nystatin 1 applic 01/24/17 18:00 02/05/17 09:41 Nystop Topical Powder TOP 1 applic BID [facility] Administration Pantoprazole Sodium 40 mg 02/03/17 10:00 02/05/17 09:40 Protonix Inj IVP 40 mg DAILY [facility] Administration Rosuvastatin Calcium 20 mg 01/18/17 22:00 02/04/17 21:19 Crestor PO 20 mg HS [facility] Administration - Patient Studies Lab Studies: Microbiology Studies 02/03/17 15:25 Urine Culture - Final Urine,Catheterized No Growth (<1,000 CFU/ML) Lab Studies 02/05/17 02/05/17 02/05/17 Range/Units 08:51 06:24 06:19 WBC 11.9 H (4.8-10.8) K/uL RBC 2.88 L (3.80-5.20) Mil/uL Hgb 8.1 L (11.0-16.0) g/dL Hct 23.9 L (34.0-47.0) % MCV 82.9 (81.0-99.0) fL MCH 28.2 (27.0-31.0) pg MCHC 34.0 (33.0-37.0) g/dL RDW 16.2 H (11.5-14.5) % Plt Count 329 (130-400) K/uL MPV 7.4 (7.2-11.7) fL Neut % (Auto) 89.0 H (50.0-75.0) % Lymph % (Auto) 6.9 L (20.0-40.0) % [place] % (Auto) 3.9 (0.0-10.0) % Eos % (Auto) 0.0 (0.0-4.0) % Baso % (Auto) 0.2 (0.0-2.0) % Neut # 10.6 H (1.8-7.0) K/uL Lymph # 0.8 L (1.0-4.3) K/uL [place] # 0.5 (0.0-0.8) K/uL Eos # 0.0 (0.0-0.7) K/uL Baso # 0.0 (0.0-0.2) K/uL Neutrophils % (Manual) 69 (50-75) % Band Neutrophils % 13 H* (0-2) % Lymphocytes % (Manual) 8 L (20-40) % Monocytes % (Manual) 10 (0-10) % Toxic Granulation Present Platelet Estimate Normal (NORMAL) Large Platelets Present Giant Platelets Present Polychromasia Slight Hypochromasia (manual) Slight Poikilocytosis (manual Slight Anisocytosis (manual) Slight Ovalocytes Slight [place] Cells Slight Schistocytes Slight PT (9.7-12.2) SECONDS INR APTT (21-34) SECONDS Puncture Site Rb pCO2 24 L (35-45) mm/Hg pO2 150 H (80-100) mm/Hg HCO3 25.1 (21-28) mmol/L ABG pH 7.55 H (7.35-7.45) ABG Total CO2 21.7 L (22-28) mmol/L ABG O2 Saturation 99.7 H (95-98) % ABG Base Excess 0.2 (-2.0-3.0) mmol/L Singh Test Na ABG Potassium 4.0 (3.6-5.2) mmol/L A-a O2 Difference 105.0 mm/Hg Respiratory Index 0.7 Sodium 134.0 127 L (132-148) mmol/l Chloride 108.0 H 99 (98-107) mmol/L Glucose 236 H (65-105) mg/dl Lactate 1.5 (0.7-2.1) mmol/L Vent Mode Prvc Mechanical Rate 20 FiO2 40.0 % Tidal Volume 400 PEEP 5 Crit Value Called To Crit Value Called By Crit Value Read Back Blood Gas Notified Time Potassium 4.0 (3.6-5.2) mmol/L Carbon Dioxide 22 (22-30) mmol/L Anion Gap 10 (10-20) BUN 29 H (7-17) mg/dL Creatinine 0.9 (0.7-1.2) mg/dL Est GFR ( Amer) > 60 Est GFR (Non-Af Amer) > 60 POC Glucose (mg/dL) (65-110) mg/dL Random Glucose 190 H (65-105) mg/dL Calcium 6.6 L (8.6-10.4) mg/dl Phosphorus 3.4 (2.5-4.5) mg/dL Magnesium 1.9 (1.6-2.3) mg/dL Total Bilirubin 0.8 (0.2-1.3) mg/dL AST 12 L D (14-36) U/L ALT 22 (9-52) U/L Alkaline Phosphatase 66 (38-126) U/L Total Protein 5.4 L (6.3-8.3) g/dL Albumin 2.4 L (3.5-5.0) g/dL Globulin 3.0 (2.2-3.9) gm/dL Albumin/Globulin Ratio 0.8 L (1.0-2.1) Arterial Blood Potassium 4.0 (3.6-5.2) mmol/L Blood Type Antibody Screen Antibody Identification IRA, Poly Interpret (NEGATIVE) Crossmatch 02/05/17 02/05/17 02/04/17 Range/Units 05:43 05:03 23:27 WBC (4.8-10.8) K/uL RBC (3.80-5.20) Mil/uL Hgb (11.0-16.0) g/dL Hct (34.0-47.0) % MCV (81.0-99.0) fL MCH (27.0-31.0) pg MCHC (33.0-37.0) g/dL RDW (11.5-14.5) % Plt Count (130-400) K/uL MPV (7.2-11.7) fL Neut % (Auto) (50.0-75.0) % Lymph % (Auto) (20.0-40.0) % [place] % (Auto) (0.0-10.0) % Eos % (Auto) (0.0-4.0) % Baso % (Auto) (0.0-2.0) % Neut # (1.8-7.0) K/uL Lymph # (1.0-4.3) K/uL [place] # (0.0-0.8) K/uL Eos # (0.0-0.7) K/uL Baso # (0.0-0.2) K/uL Neutrophils % (Manual) (50-75) % Band Neutrophils % (0-2) % Lymphocytes % (Manual) (20-40) % Monocytes % (Manual) (0-10) % Toxic Granulation Platelet Estimate (NORMAL) Large Platelets Giant Platelets Polychromasia Hypochromasia (manual) Poikilocytosis (manual Anisocytosis (manual) Ovalocytes [place] Cells Schistocytes PT (9.7-12.2) SECONDS INR APTT (21-34) SECONDS Puncture Site Rr pCO2 14 L* (35-45) mm/Hg pO2 79 L (80-100) mm/Hg HCO3 12.4 L (21-28) mmol/L ABG pH 7.32 L (7.35-7.45) ABG Total CO2 7.6 L (22-28) mmol/L ABG O2 Saturation 99.5 H (95-98) % ABG Base Excess -16.0 L (-2.0-3.0) mmol/L Singh Test Pos ABG Potassium 1.3 L* (3.6-5.2) mmol/L A-a O2 Difference 189.0 mm/Hg Respiratory Index 2.4 Sodium 154.0 H (132-148) mmol/l Chloride 129.0 H (98-107) mmol/L Glucose 67 (65-105) mg/dl Lactate 0.9 (0.7-2.1) mmol/L Vent Mode Prvc Mechanical Rate 12 FiO2 40.0 % Tidal Volume 400 PEEP 5 Crit Value Called To Mike rn Crit Value Called By Kaden pretzel twisting machine operator Crit Value Read Back Y Blood Gas Notified Time 529 Potassium (3.6-5.2) mmol/L Carbon Dioxide (22-30) mmol/L Anion Gap (10-20) BUN (7-17) mg/dL Creatinine (0.7-1.2) mg/dL Est GFR ( Amer) Est GFR (Non-Af Amer) POC Glucose (mg/dL) 200 H 277 H (65-110) mg/dL Random Glucose (65-105) mg/dL Calcium (8.6-10.4) mg/dl Phosphorus (2.5-4.5) mg/dL Magnesium (1.6-2.3) mg/dL Total Bilirubin (0.2-1.3) mg/dL AST (14-36) U/L ALT (9-52) U/L Alkaline Phosphatase (38-126) U/L Total Protein (6.3-8.3) g/dL Albumin (3.5-5.0) g/dL Globulin (2.2-3.9) gm/dL Albumin/Globulin Ratio (1.0-2.1) Arterial Blood Potassium 1.3 L* (3.6-5.2) mmol/L Blood Type Antibody Screen Antibody Identification IRA, Poly Interpret (NEGATIVE) Crossmatch 02/04/17 02/04/17 02/04/17 Range/Units 17:40 11:38 11:38 WBC (4.8-10.8) K/uL RBC (3.80-5.20) Mil/uL Hgb (11.0-16.0) g/dL Hct (34.0-47.0) % MCV (81.0-99.0) fL MCH (27.0-31.0) pg MCHC (33.0-37.0) g/dL RDW (11.5-14.5) % Plt Count (130-400) K/uL MPV (7.2-11.7) fL Neut % (Auto) (50.0-75.0) % Lymph % (Auto) (20.0-40.0) % [place] % (Auto) (0.0-10.0) % Eos % (Auto) (0.0-4.0) % Baso % (Auto) (0.0-2.0) % Neut # (1.8-7.0) K/uL Lymph # (1.0-4.3) K/uL [place] # (0.0-0.8) K/uL Eos # (0.0-0.7) K/uL Baso # (0.0-0.2) K/uL Neutrophils % (Manual) (50-75) % Band Neutrophils % (0-2) % Lymphocytes % (Manual) (20-40) % Monocytes % (Manual) (0-10) % Toxic Granulation Platelet Estimate (NORMAL) Large Platelets Giant Platelets Polychromasia Hypochromasia (manual) Poikilocytosis (manual Anisocytosis (manual) Ovalocytes [place] Cells Schistocytes PT 13.8 H (9.7-12.2) SECONDS INR 1.2 APTT 34 (21-34) SECONDS Puncture Site pCO2 (35-45) mm/Hg pO2 (80-100) mm/Hg HCO3 (21-28) mmol/L ABG pH (7.35-7.45) ABG Total CO2 (22-28) mmol/L ABG O2 Saturation (95-98) % ABG Base Excess (-2.0-3.0) mmol/L Singh Test ABG Potassium (3.6-5.2) mmol/L A-a O2 Difference mm/Hg Respiratory Index Sodium (132-148) mmol/l Chloride (98-107) mmol/L Glucose (65-105) mg/dl Lactate (0.7-2.1) mmol/L Vent Mode Mechanical Rate FiO2 % Tidal Volume PEEP Crit Value Called To Crit Value Called By Crit Value Read Back Blood Gas Notified Time Potassium (3.6-5.2) mmol/L Carbon Dioxide (22-30) mmol/L Anion Gap (10-20) BUN (7-17) mg/dL Creatinine (0.7-1.2) mg/dL Est GFR ( Amer) Est GFR (Non-Af Amer) POC Glucose (mg/dL) 334 H (65-110) mg/dL Random Glucose (65-105) mg/dL Calcium (8.6-10.4) mg/dl Phosphorus (2.5-4.5) mg/dL Magnesium (1.6-2.3) mg/dL Total Bilirubin (0.2-1.3) mg/dL AST (14-36) U/L ALT (9-52) U/L Alkaline Phosphatase (38-126) U/L Total Protein (6.3-8.3) g/dL Albumin (3.5-5.0) g/dL Globulin (2.2-3.9) gm/dL Albumin/Globulin Ratio (1.0-2.1) Arterial Blood Potassium (3.6-5.2) mmol/L Blood Type O POSITIVE Antibody Screen Positive Antibody Identification Cancelled IRA, Poly Interpret Negative (NEGATIVE) Crossmatch See Detail 02/04/17 02/04/17 Range/Units 11:15 10:56 WBC (4.8-10.8) K/uL RBC (3.80-5.20) Mil/uL Hgb (11.0-16.0) g/dL Hct (34.0-47.0) % MCV (81.0-99.0) fL MCH (27.0-31.0) pg MCHC (33.0-37.0) g/dL RDW (11.5-14.5) % Plt Count (130-400) K/uL MPV (7.2-11.7) fL Neut % (Auto) (50.0-75.0) % Lymph % (Auto) (20.0-40.0) % [place] % (Auto) (0.0-10.0) % Eos % (Auto) (0.0-4.0) % Baso % (Auto) (0.0-2.0) % Neut # (1.8-7.0) K/uL Lymph # (1.0-4.3) K/uL [place] # (0.0-0.8) K/uL Eos # (0.0-0.7) K/uL Baso # (0.0-0.2) K/uL Neutrophils % (Manual) (50-75) % Band Neutrophils % (0-2) % Lymphocytes % (Manual) (20-40) % Monocytes % (Manual) (0-10) % Toxic Granulation Platelet Estimate (NORMAL) Large Platelets Giant Platelets Polychromasia Hypochromasia (manual) Poikilocytosis (manual Anisocytosis (manual) Ovalocytes [place] Cells Schistocytes PT (9.7-12.2) SECONDS INR APTT (21-34) SECONDS Puncture Site Rr pCO2 29 L (35-45) mm/Hg pO2 132 H (80-100) mm/Hg HCO3 23.3 (21-28) mmol/L ABG pH 7.46 H (7.35-7.45) ABG Total CO2 21.5 L (22-28) mmol/L ABG O2 Saturation 99.7 H (95-98) % ABG Base Excess -2.1 L (-2.0-3.0) mmol/L Singh Test Pos ABG Potassium 4.0 (3.6-5.2) mmol/L A-a O2 Difference 117.0 mm/Hg Respiratory Index 0.9 Sodium 136.0 (132-148) mmol/l Chloride 107.0 (98-107) mmol/L Glucose 266 H (65-105) mg/dl Lactate 1.1 (0.7-2.1) mmol/L Vent Mode Prvc Mechanical Rate 12 FiO2 40.0 % Tidal Volume 400 PEEP 5 Crit Value Called To Crit Value Called By Crit Value Read Back Blood Gas Notified Time Potassium (3.6-5.2) mmol/L Carbon Dioxide (22-30) mmol/L Anion Gap (10-20) BUN (7-17) mg/dL Creatinine (0.7-1.2) mg/dL Est GFR ( Amer) Est GFR (Non-Af Amer) POC Glucose (mg/dL) 259 H (65-110) mg/dL Random Glucose (65-105) mg/dL Calcium (8.6-10.4) mg/dl Phosphorus (2.5-4.5) mg/dL Magnesium (1.6-2.3) mg/dL Total Bilirubin (0.2-1.3) mg/dL AST (14-36) U/L ALT (9-52) U/L Alkaline Phosphatase (38-126) U/L Total Protein (6.3-8.3) g/dL Albumin (3.5-5.0) g/dL Globulin (2.2-3.9) gm/dL Albumin/Globulin Ratio (1.0-2.1) Arterial Blood Potassium 4.0 (3.6-5.2) mmol/L Blood Type Antibody Screen Antibody Identification IRA, Poly Interpret (NEGATIVE) Crossmatch Laboratory Results - last 24 hr 02/04/17 02/04/17 02/04/17 10:56 11:15 11:38 WBC RBC Hgb Hct MCV MCH MCHC RDW Plt Count MPV Neut % (Auto) Lymph % (Auto) [place] % (Auto) Eos % (Auto) Baso % (Auto) Neut # Lymph # [place] # Eos # Baso # Neutrophils % (Manual) Band Neutrophils % Lymphocytes % (Manual) Monocytes % (Manual) Toxic Granulation Platelet Estimate Large Platelets Giant Platelets Polychromasia Hypochromasia (manual) Poikilocytosis (manual Anisocytosis (manual) Ovalocytes [place] Cells Schistocytes PT INR APTT Puncture Site Rr pCO2 29 L pO2 132 H HCO3 23.3 ABG pH 7.46 H ABG Total CO2 21.5 L ABG O2 Saturation 99.7 H ABG Base Excess -2.1 L Singh Test Pos ABG Potassium 4.0 A-a O2 Difference 117.0 Respiratory Index 0.9 Sodium 136.0 Chloride 107.0 Glucose 266 H Lactate 1.1 Vent Mode Prvc Mechanical Rate 12 FiO2 40.0 Tidal Volume 400 PEEP 5 Crit Value Called To Crit Value Called By Crit Value Read Back Blood Gas Notified Time Potassium Carbon Dioxide Anion Gap BUN Creatinine Est GFR ( Amer) Est GFR (Non-Af Amer) POC Glucose (mg/dL) 259 H Random Glucose Calcium Phosphorus Magnesium Total Bilirubin AST ALT Alkaline Phosphatase Total Protein Albumin Globulin Albumin/Globulin Ratio Arterial Blood Potassium 4.0 Blood Type O POSITIVE Antibody Screen Positive Antibody Identification Cancelled IRA, Poly Interpret Negative Crossmatch See Detail 02/04/17 02/04/17 02/04/17 11:38 17:40 23:27 WBC RBC Hgb Hct MCV MCH MCHC RDW Plt Count MPV Neut % (Auto) Lymph % (Auto) [place] % (Auto) Eos % (Auto) Baso % (Auto) Neut # Lymph # [place] # Eos # Baso # Neutrophils % (Manual) Band Neutrophils % Lymphocytes % (Manual) Monocytes % (Manual) Toxic Granulation Platelet Estimate Large Platelets Giant Platelets Polychromasia Hypochromasia (manual) Poikilocytosis (manual Anisocytosis (manual) Ovalocytes [place] Cells Schistocytes PT 13.8 H INR 1.2 APTT 34 Puncture Site pCO2 pO2 HCO3 ABG pH ABG Total CO2 ABG O2 Saturation ABG Base Excess Singh Test ABG Potassium A-a O2 Difference Respiratory Index Sodium Chloride Glucose Lactate Vent Mode Mechanical Rate FiO2 Tidal Volume PEEP Crit Value Called To Crit Value Called By Crit Value Read Back Blood Gas Notified Time Potassium Carbon Dioxide Anion Gap BUN Creatinine Est GFR ( Amer) Est GFR (Non-Af Amer) POC Glucose (mg/dL) 334 H 277 H Random Glucose Calcium Phosphorus Magnesium Total Bilirubin AST ALT Alkaline Phosphatase Total Protein Albumin Globulin Albumin/Globulin Ratio Arterial Blood Potassium Blood Type Antibody Screen Antibody Identification IRA, Poly Interpret Crossmatch 02/05/17 02/05/17 02/05/17 05:03 05:43 06:19 WBC RBC Hgb Hct MCV MCH MCHC RDW Plt Count MPV Neut % (Auto) Lymph % (Auto) [place] % (Auto) Eos % (Auto) Baso % (Auto) Neut # Lymph # [place] # Eos # Baso # Neutrophils % (Manual) Band Neutrophils % Lymphocytes % (Manual) Monocytes % (Manual) Toxic Granulation Platelet Estimate Large Platelets Giant Platelets Polychromasia Hypochromasia (manual) Poikilocytosis (manual Anisocytosis (manual) Ovalocytes [place] Cells Schistocytes PT INR APTT Puncture Site Rr pCO2 14 L* pO2 79 L HCO3 12.4 L ABG pH 7.32 L ABG Total CO2 7.6 L ABG O2 Saturation 99.5 H ABG Base Excess -16.0 L Singh Test Pos ABG Potassium 1.3 L* A-a O2 Difference 189.0 Respiratory Index 2.4 Sodium 154.0 H 127 L Chloride 129.0 H 99 Glucose 67 Lactate 0.9 Vent Mode Prvc Mechanical Rate 12 FiO2 40.0 Tidal Volume 400 PEEP 5 Crit Value Called To Mike rn Crit Value Called By Kaden pretzel twisting machine operator Crit Value Read Back Y Blood Gas Notified Time 529 Potassium 4.0 Carbon Dioxide 22 Anion Gap 10 BUN 29 H Creatinine 0.9 Est GFR ( Amer) > 60 Est GFR (Non-Af Amer) > 60 POC Glucose (mg/dL) 200 H Random Glucose 190 H Calcium 6.6 L Phosphorus 3.4 Magnesium 1.9 Total Bilirubin 0.8 AST 12 L D ALT 22 Alkaline Phosphatase 66 Total Protein 5.4 L Albumin 2.4 L Globulin 3.0 Albumin/Globulin Ratio 0.8 L Arterial Blood Potassium 1.3 L* Blood Type Antibody Screen Antibody Identification IRA, Poly Interpret Crossmatch 02/05/17 02/05/17 06:24 08:51 WBC 11.9 H RBC 2.88 L Hgb 8.1 L Hct 23.9 L MCV 82.9 MCH 28.2 MCHC 34.0 RDW 16.2 H Plt Count 329 MPV 7.4 Neut % (Auto) 89.0 H Lymph % (Auto) 6.9 L [place] % (Auto) 3.9 Eos % (Auto) 0.0 Baso % (Auto) 0.2 Neut # 10.6 H Lymph # 0.8 L [place] # 0.5 Eos # 0.0 Baso # 0.0 Neutrophils % (Manual) 69 Band Neutrophils % 13 H* Lymphocytes % (Manual) 8 L Monocytes % (Manual) 10 Toxic Granulation Present Platelet Estimate Normal Large Platelets Present Giant Platelets Present Polychromasia Slight Hypochromasia (manual) Slight Poikilocytosis (manual Slight Anisocytosis (manual) Slight Ovalocytes Slight [place] Cells Slight Schistocytes Slight PT INR APTT Puncture Site Rb pCO2 24 L pO2 150 H HCO3 25.1 ABG pH 7.55 H ABG Total CO2 21.7 L ABG O2 Saturation 99.7 H ABG Base Excess 0.2 Singh Test Na ABG Potassium 4.0 A-a O2 Difference 105.0 Respiratory Index 0.7 Sodium 134.0 Chloride 108.0 H Glucose 236 H Lactate 1.5 Vent Mode Prvc Mechanical Rate 20 FiO2 40.0 Tidal Volume 400 PEEP 5 Crit Value Called To Crit Value Called By Crit Value Read Back Blood Gas Notified Time Potassium Carbon Dioxide Anion Gap BUN Creatinine Est GFR ( Amer) Est GFR (Non-Af Amer) POC Glucose (mg/dL) Random Glucose Calcium Phosphorus Magnesium Total Bilirubin AST ALT Alkaline Phosphatase Total Protein Albumin Globulin Albumin/Globulin Ratio Arterial Blood Potassium 4.0 Blood Type Antibody Screen Antibody Identification IRA, Poly Interpret Crossmatch Fingerstick Blood Sugar Results: 200 Review of Systems - Review of Systems Systems not reviewed;Unavailable: Other (status post tracheostomy on ventilator support) Critical Care Progress Note - Ventilator Checklist Head of Bed 30 Degrees: Yes PUD Prophalyxis: Yes DVT Prophylaxis: Yes - Vent Settings MODE:: PRVC Assessment/Plan (1) Respiratory failure Assessment and plan: status post tracheostomy wean as tolerated status post revision of GT tube Feeding on hold Lopressor as needed for tachycardia Continue IV antibiotics Continue present treatment for now Current Visit: Yes Status: Acute (2) Pneumonia Current Visit: Yes Status: Acute
--- NOTE | 2017-02-05 11:05 | RAD ---
HISTORY: eval pna COMPARISON: Comparison is made with 02/02/2017 FINDINGS: LUNGS: No significant interval change in the lungs noted since the previous study. The tracheostomy tube is again seen at appropriate position P PLEURA: No significant pleural effusion identified, no pneumothorax apparent. CARDIOVASCULAR: Normal. OSSEOUS STRUCTURES: Deformity at the right humeral head is again noted. VISUALIZED UPPER ABDOMEN: Normal. OTHER FINDINGS: Left jugular central line is again seen in place. IMPRESSION: No significant interval change noted since the previous last exam.
[2017-02-05] MEDS: Linezolid 600 mg in D5W 300 ml 600 MG/300 ML BAG IVPB SCH ×2 (11:26→21:37)
--- NOTE | 2017-02-05 13:30 | CP.PCM.PN ---
Subjective - Date & Time of Evaluation Date of Evaluation: 02/05/17 Time of Evaluation: 15:00 - Subjective Subjective: Pt is seen and examined, on mechanical ventilator, sedated Objective - Vital Signs/Intake and Output Vital Signs (last 24 hours): Temp Pulse Resp BP Pulse Ox 98.4 F 141 H 24 102/51 L 100 02/05/17 12:00 02/05/17 12:14 02/05/17 12:14 02/05/17 12:14 02/05/17 12:14 Intake and Output: 02/05/17 02/05/17 06:59 18:59 Intake Total 400 900 Output Total 0 100 Balance 400 800 - Medications Medications: Current Medications Acetaminophen (Tylenol 325mg Tab) 650 mg PO Q6 PRN PRN Reason: Pain, moderate (4-7) Last Admin: 02/03/17 20:39 Dose: 650 mg Albuterol/Ipratropium (Duoneb 3 Mg/0.5 Mg (3 Ml) Ud) 3 ml INH RQ6 [facility] Last Admin: 02/05/17 07:42 Dose: Not Given Aspirin (Aspirin Chewable) 81 mg PO DAILY [facility] Last Admin: 02/05/17 10:00 Dose: Not Given Enalapril Maleate (Vasotec) 5 mg PO DAILY [facility] Last Admin: 02/05/17 10:00 Dose: Not Given Enoxaparin Sodium (Lovenox) 40 mg SC DAILY [facility] Last Admin: 02/02/17 10:20 Dose: Not Given Levetiracetam 750 mg/ Sodium (Chloride) 107.5 mls @ 420 mls/hr IVPB Q12H [facility] Last Admin: 02/05/17 01:00 Dose: 420 mls/hr Linezolid (Zyvox 600mg/300ml D5w) 600 mg in 300 mls @ 200 mls/hr IVPB Q12 [facility] Last Admin: 02/05/17 11:26 Dose: 200 mls/hr Aztreonam 1 gm/ Sodium (Chloride) 100 mls @ 100 mls/hr IVPB Q8H [facility] Last Admin: 02/05/17 09:48 Dose: 100 mls/hr Insulin Aspart (Novolog) 0 unit SC Q6 [facility] PRN Reason: Protocol Last Admin: 02/05/17 11:34 Dose: 3 unit Insulin Glargine (Lantus) 20 unit SC [facility] Last Admin: 02/01/17 22:30 Dose: Not Given Levothyroxine Sodium (Synthroid) 25 mcg PO DAILY@0630 [facility] Last Admin: 02/05/17 06:24 Dose: Not Given Lorazepam (Ativan) 2 mg IVP Q6H PRN PRN Reason: Anxiety Metoprolol Tartrate (Lopressor) 5 mg IVP Q8H [facility] Last Admin: 02/05/17 09:00 Dose: 5 mg Morphine Sulfate (Morphine) 1 mg IVP Q4 PRN PRN Reason: Pain, moderate (4-7) Last Admin: 02/03/17 23:00 Dose: 1 mg Nystatin (Nystop Topical Powder) 1 applic TOP BID [facility] Last Admin: 02/05/17 09:41 Dose: 1 applic Pantoprazole Sodium (Protonix Susp) 40 mg PO DAILY [facility] Rosuvastatin Calcium (Crestor) 20 mg PO [facility] Last Admin: 02/04/17 21:19 Dose: 20 mg - Labs Labs: 02/05/17 06:24 02/05/17 06:19 PT 13.8 SECONDS (9.7-12.2) H 02/04/17 11:38 INR 1.2 02/04/17 11:38 APTT 34 SECONDS (21-34) 02/04/17 11:38 - Constitutional Appears: No Acute Distress - Head Exam Head Exam: ATRAUMATIC, NORMAL INSPECTION, NORMOCEPHALIC - Eye Exam Eye Exam: EOMI, Normal appearance, PERRL Pupil Exam: NORMAL ACCOMODATION, PERRL - Respiratory Exam Respiratory Exam: Decreased Breath Sounds, Rales, Rhonchi - Cardiovascular Exam Cardiovascular Exam: REGULAR RHYTHM, +S1, +S2. absent: Murmur - GI/Abdominal Exam GI & Abdominal Exam: Soft, Normal Bowel Sounds. absent: Tenderness - Neurological Exam Neurological Exam: Alert, Awake, CN II-XII Intact, Normal Gait, Oriented x3 Assessment and Plan (1) Respiratory failure Status: Acute (2) Seizure disorder Status: Acute (3) Uncontrolled blood glucose Status: Acute (4) Systolic CHF Status: Acute (5) S/P bronchoalveolar lavage Status: Acute
[2017-02-05] MEDS: Sodium Chloride 0.9% 1,000 ML IV SCH (14:15)
[2017-02-05] MEDS ORDERED: Metoprolol 1 mg/ml Inj IVP ONE (14:55)
--- NOTE | 2017-02-05 15:39 | PN ---
DATE: FOLLOWUP SUBJECTIVE: The patient is currently in supraventricular tachycardia and has been receiving IV Lopressor, gastrostomy tube feeding and medication intake is still on hold. PHYSICAL EXAMINATION: VITAL SIGNS: Blood pressure 100/53; heart rate 137, SVT on the monitor; temperature 98.4. HEENT: Pale conjunctivae. CHEST: Bilateral rhonchi. HEART: S1 and S2 regular. EXTREMITIES: Significant contracture deformity. LABORATORY DATA: Hemoglobin and hematocrit 8.1 and 23.9, white count 11.9, platelet count 329,000, bands are 13%. Today's SMA-7: Sodium 127, potassium 4.0, chloride 99, CO2 of 22, glucose 190, BUN 29, creatinine 0.9 and magnesium is 1.9. ASSESSMENT: 1. Respiratory failure. 2. Recurrent paroxysmal supraventricular tachycardia. 3. Anemia. 4. Uncontrolled diabetes mellitus. 5. Hyponatremia. 6. Urinary tract infection. RECOMMENDATIONS: Case was discussed with wire technician, Dr. Alfaro. Continue IV Azactam and IV Zyvox. Oral medications were still on hold and the patient is receiving Lopressor 5 mg IV q. 8 hours p.r.n. Florian Crowell MD
--- NOTE | 2017-02-05 21:08 | CP.PCM.PN ---
Subjective - Date & Time of Evaluation Date of Evaluation: 02/05/17 Time of Evaluation: 21:08 - Subjective Subjective: temp 99.6, tachycardiac. S/P GT REVISION 02/04/17 GT FEEDINGS ON HOLD. ON IV ABX. LABS; REPEAT URINE CULTURES -VE. Objective - Vital Signs/Intake and Output Vital Signs (last 24 hours): Temp Pulse Resp BP Pulse Ox 98.2 F 91 H 14 96/45 L 100 02/05/17 20:00 02/05/17 20:14 02/05/17 20:14 02/05/17 20:14 02/05/17 20:14 Intake and Output: 02/05/17 02/06/17 18:59 06:59 Intake Total 1386 170 Output Total 100 Balance 1286 170 - Medications Medications: Current Medications Acetaminophen (Tylenol 325mg Tab) 650 mg PO Q6 PRN PRN Reason: Pain, moderate (4-7) Last Admin: 02/03/17 20:39 Dose: 650 mg Aspirin (Aspirin Chewable) 81 mg PO DAILY [facility] Last Admin: 02/05/17 10:00 Dose: Not Given Enalapril Maleate (Vasotec) 5 mg PO DAILY [facility] Last Admin: 02/05/17 10:00 Dose: Not Given Enoxaparin Sodium (Lovenox) 40 mg SC DAILY [facility] Last Admin: 02/02/17 10:20 Dose: Not Given Levetiracetam 750 mg/ Sodium (Chloride) 107.5 mls @ 420 mls/hr IVPB Q12H [facility] Last Admin: 02/05/17 13:36 Dose: 420 mls/hr Linezolid (Zyvox 600mg/300ml D5w) 600 mg in 300 mls @ 200 mls/hr IVPB Q12 [facility] Last Admin: 02/05/17 11:26 Dose: 200 mls/hr Aztreonam 1 gm/ Sodium (Chloride) 100 mls @ 100 mls/hr IVPB Q8H [facility] Last Admin: 02/05/17 17:09 Dose: 100 mls/hr Sodium Chloride (Sodium Chloride 0.9%) 1,000 mls @ 75 mls/hr IV .[id number] [facility] Last Admin: 02/05/17 14:15 Dose: 75 mls/hr Insulin Aspart (Novolog) 0 unit SC Q6 [facility] PRN Reason: Protocol Last Admin: 02/05/17 18:55 Dose: 3 unit Insulin Glargine (Lantus) 20 unit SC [facility] Last Admin: 02/01/17 22:30 Dose: Not Given Levothyroxine Sodium (Synthroid) 25 mcg PO DAILY@0630 [facility] Last Admin: 02/05/17 06:24 Dose: Not Given Lorazepam (Ativan) 2 mg IVP Q6H PRN PRN Reason: Anxiety Metoprolol Tartrate (Lopressor) 5 mg IVP Q8H [facility] Last Admin: 02/05/17 17:09 Dose: 5 mg Morphine Sulfate (Morphine) 1 mg IVP Q4 PRN PRN Reason: Pain, moderate (4-7) Last Admin: 02/03/17 23:00 Dose: 1 mg Nystatin (Nystop Topical Powder) 1 applic TOP BID [facility] Last Admin: 02/05/17 17:10 Dose: 1 applic Pantoprazole Sodium (Protonix Susp) 40 mg PO DAILY [facility] Rosuvastatin Calcium (Crestor) 20 mg PO [facility] Last Admin: 02/04/17 21:19 Dose: 20 mg - Labs Labs: 02/05/17 06:24 02/05/17 06:19 PT 13.8 SECONDS (9.7-12.2) H 02/04/17 11:38 INR 1.2 02/04/17 11:38 APTT 34 SECONDS (21-34) 02/04/17 11:38 - Constitutional Appears: No Acute Distress, Cachectic, Chronically Ill - Eye Exam Eye Exam: EOMI, PERRL - ENT Exam ENT Exam: Normal Oropharynx (S/P TRACH.) - Neck Exam Neck Exam: Normal Inspection - Respiratory Exam Respiratory Exam: Clear to Ausculation Bilateral - Cardiovascular Exam Cardiovascular Exam: Tachycardia, +S1, +S2 - GI/Abdominal Exam GI & Abdominal Exam: Soft, Normal Bowel Sounds (GT -INTACT.) - Extremities Exam Extremities Exam: absent: Calf Tenderness, Pedal Edema - Neurological Exam Neurological Exam: Awake, CN II-XII Intact - Skin Skin Exam: Normal Color, Warm Assessment and Plan (1) Sepsis Assessment & Plan: ON IV ZYVOX 600MG IV Q 12HRLY. 01/29/17. CONTINUE IV AZACTAM 1GM IV Q 8HRLY. 01/18/17 FOR NOW IN VIEW OF RECENT MANIPULATION OF GT./AND BANDEMIA. ADD IV FLAGYL 250MG IVPB Q8HRLY FOR ANAEROBIC COVERAGE.02/05/17 Status: Acute (2) Respiratory failure Status: Acute (3) Pneumonia Status: Acute (4) Hypertension Status: Chronic (5) UTI (urinary tract infection) due to Enterococcus Assessment & Plan: ON IV ZYVOX 600MG IV Q 12HRLY Status: Acute (6) Hepatitis C antibody test positive Status: Acute
[2017-02-05] MEDS: metroNIDAZOLE IV 500 mg/100 ml 250 MG in Premixed IV 1 EA IVPB SCH (23:00)
[2017-02-06] MEDS: (Novolog) Insulin Aspart, Recombinant 100 u/ml 10 ml vial SC SCH ×4 (00:34→17:56)
[2017-02-06] MEDS: Aztreonam 1 GM in Sodium Chloride 0.9% 100 ML IVPB SCH ×3 (01:35→18:11)
[2017-02-06] MEDS: Metoprolol 1 mg/ml Inj IVP SCH ×2 (01:36→09:33)
[2017-02-06] MEDS: Sodium Chloride 0.9% 1,000 ML IV SCH ×3 (04:35→16:30)
[2017-02-06] MEDS: metroNIDAZOLE IV 500 mg/100 ml 250 MG in Premixed IV 1 EA IVPB SCH ×3 (05:10→22:31)
[2017-02-06] MEDS: Levothyroxine 25 MCG TAB PO SCH (05:45)
[2017-02-06 07:06] LABS: BASO % 0.1 % (0.0-2.0); HEMOGLOBIN 8.7 g/dL (11.0-16.0); MEAN CELL VOLUME 84.4 fL (81.0-99.0); MEAN CORPUSCULAR HGB CONC 33.2 g/dL (33.0-37.0); MEAN PLATELET VOLUME 7.5 fL (7.2-11.7); MONO # 0.7 K/uL (0.0-0.8); MONO % 4.1 % (0.0-10.0); NEUT # 14.8 K/uL (1.8-7.0); NEUT % 89.8 % (50.0-75.0); PLATELET COUNT 426 K/uL (130-400); RED CELL DISTRIBUTION WIDTH 16.7 % (11.5-14.5); WHITE BLOOD COUNT 16.5 K/uL (4.8-10.8)
[2017-02-06 07:26] LABS: ALB/GLOB RATIO 0.8 (1.0-2.1); ALBUMIN 2.6 g/dL (3.5-5.0); ALT/SGPT 26 U/L (9-52); AST/SGOT 18 U/L (14-36); BLOOD UREA NITROGEN 41 mg/dL (7-17); CALCIUM 6.6 mg/dl (8.6-10.4); GFR AFRICAN-AMERICAN > 60; GFR NON-AFRICAN AMERICAN 53
[2017-02-06] MEDS ORDERED: Iohexol 240 (50 ml) PO ONE (07:51)
[2017-02-06 08:30] LABS: BANDS 8 % (0-2); LYMPHOCYTE 4 % (20-40); MONOCYTE 4 % (0-10); NEUTROPHIL 84 % (50-75); PLATELET ESTIMATE SLIGHTLY INCREASED (NORMAL); TOTAL CELLS COUNTED 100
[2017-02-06 08:31] LABS: ANISOCYTOSIS SLIGHT; BURR CELLS SLIGHT; POIKILOCYTOSIS SLIGHT; TOXIC GRANULATION PRESENT
[2017-02-06 08:32] LABS: GIANT PLATELETS PRESENT; HYPOCHROMIC SLIGHT; LARGE PLATELETS PRESENT; POLYCHROMIC SLIGHT
--- NOTE | 2017-02-06 08:51 | RAD ---
HISTORY: eval G-tube for leak COMPARISON: Comparison is made to previous x-ray of the abdomen dated 02/04/2017 FINDINGS: BOWEL: Normal. No obstruction. No free air. Contrast is seen in the stomach. Gastrostomy tube seen in place. There is contrast reflux into the lower esophagus. Postsurgical changes seen at the midline abdomen. BONES: Diffuse degenerative changes and osteopenia. OTHER FINDINGS: None. IMPRESSION: Contrast seen in the stomach indicated appropriate position of the gastrostomy tube. Small amount of contrast reflux into the lower esophagus.
[2017-02-06] MEDS: Pantoprazole 40 mg Susp UD PO SCH (09:33)
[2017-02-06] MEDS: Linezolid 600 mg in D5W 300 ml 600 MG/300 ML BAG IVPB SCH ×2 (09:55→22:27)
--- NOTE | 2017-02-06 15:25 | PN ---
DATE: FOLLOWUP SUBJECTIVE: The patient is in SVT at heart rate about 150. PHYSICAL EXAMINATION: VITAL SIGNS: Blood pressure 98/60, heart rate 148, temperature 98.6, respirations 20. HEENT: Pale conjunctivae. CHEST: Bilateral rhonchi. HEART: S1 and S2 regular. EXTREMITIES: Significant contraction. LABORATORY DATA: Hemoglobin and hematocrit 8.7 and 26.2, white count 16.5, platelet 426,000. SMA-7: Sodium 128, potassium 4.4, chloride 99, CO2 of 18, glucose 282, BUN 41, creatinine 1.0. ASSESSMENT: 1. Respiratory failure. 2. Supraventricular tachycardia. 3. Anemia. 4. Urinary tract infection. 5. Uncontrolled diabetes mellitus. PLAN: I did order stat adenosine at 5 mg intravenously, which terminated the supraventricular tachycardia. I will start Cardizem at 60 mg q. 8 hours by gastrostomy tube. The patient remains in sinus rhythm. She can be discharged to acute rehab on her current medications including Cardizem 60 mg q. 8 hours, Vasotec 5 mg daily and Lopressor 25 mg twice a day via gastrostomy tube. Florian Crowell MD
--- NOTE | 2017-02-06 21:44 | CP.PCM.PN ---
Subjective - Date & Time of Evaluation Date of Evaluation: 02/06/17 Time of Evaluation: 10:40 Objective - Vital Signs/Intake and Output Vital Signs (last 24 hours): Temp Pulse Resp BP Pulse Ox 98.9 F 99 H 17 93/48 L 100 02/06/17 16:00 02/06/17 19:00 02/06/17 19:00 02/06/17 18:55 02/06/17 19:00 Intake and Output: 02/06/17 02/07/17 18:59 06:59 Intake Total 1150 0 Output Total 120 Balance 1030 0 - Medications Medications: Current Medications Acetaminophen (Tylenol 325mg Tab) 650 mg PO Q6 PRN PRN Reason: Pain, moderate (4-7) Last Admin: 02/03/17 20:39 Dose: 650 mg Aspirin (Aspirin Chewable) 81 mg PO DAILY [facility] Last Admin: 02/06/17 09:39 Dose: 81 mg Diltiazem HCl (Cardizem) 60 mg PEG TID [facility] Last Admin: 02/06/17 17:07 Dose: 60 mg Enalapril Maleate (Vasotec) 5 mg PO DAILY [facility] Last Admin: 02/06/17 09:38 Dose: 5 mg Enoxaparin Sodium (Lovenox) 40 mg SC DAILY [facility] Last Admin: 02/02/17 10:20 Dose: Not Given Levetiracetam 750 mg/ Sodium (Chloride) 107.5 mls @ 420 mls/hr IVPB Q12H [facility] Last Admin: 02/06/17 13:36 Dose: 420 mls/hr Linezolid (Zyvox 600mg/300ml D5w) 600 mg in 300 mls @ 200 mls/hr IVPB Q12 [facility] Last Admin: 02/06/17 09:55 Dose: 200 mls/hr Aztreonam 1 gm/ Sodium (Chloride) 100 mls @ 100 mls/hr IVPB Q8H [facility] Last Admin: 02/06/17 18:11 Dose: 100 mls/hr Sodium Chloride (Sodium Chloride 0.9%) 1,000 mls @ 75 mls/hr IV .[id number] [facility] Last Admin: 02/06/17 16:30 Dose: 75 mls/hr Metronidazole 250 mg/ (Miscellaneous) 50 mls @ 100 mls/hr IVPB Q8 [facility] Last Admin: 02/06/17 14:03 Dose: 100 mls/hr Insulin Aspart (Novolog) 0 unit SC Q6 [facility] PRN Reason: Protocol Last Admin: 02/06/17 17:56 Dose: 5 unit Insulin Glargine (Lantus) 20 unit SC HS [facility] Last Admin: 02/01/17 22:30 Dose: Not Given Levothyroxine Sodium (Synthroid) 25 mcg PO DAILY@0630 [facility] Last Admin: 02/06/17 05:45 Dose: 25 mcg Lorazepam (Ativan) 2 mg IVP Q6H PRN PRN Reason: Anxiety Metoclopramide HCl (Reglan) 5 mg PO 0600,1130,1630,2200 [facility] Last Admin: 02/06/17 16:49 Dose: 5 mg Metoprolol Tartrate (Lopressor) 25 mg PEG BID [facility] Last Admin: 02/06/17 17:23 Dose: 25 mg Morphine Sulfate (Morphine) 1 mg IVP Q4 PRN PRN Reason: Pain, moderate (4-7) Last Admin: 02/03/17 23:00 Dose: 1 mg Nystatin (Nystop Topical Powder) 1 applic TOP BID [facility] Last Admin: 02/06/17 18:11 Dose: 1 applic Pantoprazole Sodium (Protonix Susp) 40 mg PO DAILY [facility] Last Admin: 02/06/17 09:33 Dose: 40 mg Rosuvastatin Calcium (Crestor) 20 mg PO HS [facility] Last Admin: 02/05/17 21:38 Dose: 20 mg - Labs Labs: 02/06/17 06:52 02/06/17 06:52 PT 13.8 SECONDS (9.7-12.2) H 02/04/17 11:38 INR 1.2 02/04/17 11:38 APTT 34 SECONDS (21-34) 02/04/17 11:38 Assessment and Plan (1) Respiratory failure Status: Acute (2) Seizure disorder Status: Acute (3) Uncontrolled blood glucose Status: Acute (4) Systolic CHF Status: Acute (5) S/P bronchoalveolar lavage Status: Acute
--- NOTE | 2017-02-06 23:07 | CP.PCM.DIS ---
Provider - Provider Date of Admission: 01/17/17 20:04 Attending physician: Markus Love MD Consults: 01/18/17 10:00 Nursing Referral for Wound Care Routine Comment: Physician Instructions: Reason For Exam: small open sore in the sacrum 01/18/17 18:59 Nursing Referral for Wound Care Routine Comment: Physician Instructions: Reason For Exam: sacral sore Diagnosis - Discharge Diagnosis (1) Respiratory failure Status: Acute (2) Seizure disorder Status: Acute (3) Uncontrolled blood glucose Status: Acute (4) Systolic CHF Status: Acute (5) S/P bronchoalveolar lavage Status: Acute Hospital Course - Lab Results Lab Results: Micro Results 02/03/17 15:25 Urine,Catheterized Urine Culture - Final No Growth (<1,000 CFU/ML) 01/29/17 21:00 Blood-Thru Central Line Blood Culture - Final NO GROWTH AFTER 5 DAYS 01/29/17 21:00 Blood-Thru Central Line Gram Stain - Final TEST NOT PERFORMED 01/29/17 21:00 Blood-Thru Central Line Blood Culture - Final NO GROWTH AFTER 5 DAYS 01/29/17 21:00 Blood-Thru Central Line Gram Stain - Final TEST NOT PERFORMED 01/29/17 Unknown Trachasp Gram Stain - Final 01/29/17 Unknown Trachasp Sputum Culture - Final NORMAL ORAL DANIEL 01/27/17 11:31 Sputum Gram Stain - Final 01/27/17 11:31 Sputum Sputum Culture - Final NORMAL ORAL DANIEL 01/27/17 11:33 Urine,Clean Catch Urine Culture - Final Vancomycin Resistant E.faecium 01/18/17 17:48 Urine,Catheterized Urine Culture - Final Escherichia Coli Yeast Species 01/17/17 20:30 Blood-Venous Blood Culture - Final NO GROWTH AFTER 5 DAYS 01/17/17 20:30 Blood-Venous Gram Stain - Final TEST NOT PERFORMED 01/17/17 20:00 Blood-Venous Blood Culture - Final NO GROWTH AFTER 5 DAYS 01/17/17 20:00 Blood-Venous Gram Stain - Final TEST NOT PERFORMED 01/18/17 18:44 Nose MRSA Culture (Admit) - Final MRSA NOT DETECTED Most Recent Lab Values WBC 16.5 K/uL (4.8-10.8) H 02/06/17 06:52 RBC 3.10 Mil/uL (3.80-5.20) L 02/06/17 06:52 Hgb 8.7 g/dL (11.0-16.0) L 02/06/17 06:52 Hct 26.2 % (34.0-47.0) L 02/06/17 06:52 MCV 84.4 fL (81.0-99.0) 02/06/17 06:52 MCH 28.0 pg (27.0-31.0) 02/06/17 06:52 MCHC 33.2 g/dL (33.0-37.0) 02/06/17 06:52 RDW 16.7 % (11.5-14.5) H 02/06/17 06:52 Plt Count 426 K/uL (130-400) H 02/06/17 06:52 MPV 7.5 fL (7.2-11.7) 02/06/17 06:52 Neut % (Auto) 89.8 % (50.0-75.0) H 02/06/17 06:52 Lymph % (Auto) 6.0 % (20.0-40.0) L 02/06/17 06:52 [place] % (Auto) 4.1 % (0.0-10.0) 02/06/17 06:52 Eos % (Auto) 0.0 % (0.0-4.0) 02/06/17 06:52 Baso % (Auto) 0.1 % (0.0-2.0) 02/06/17 06:52 Neut # 14.8 K/uL (1.8-7.0) H 02/06/17 06:52 Lymph # 1.0 K/uL (1.0-4.3) 02/06/17 06:52 [place] # 0.7 K/uL (0.0-0.8) 02/06/17 06:52 Eos # 0.0 K/uL (0.0-0.7) 02/06/17 06:52 Baso # 0.0 K/uL (0.0-0.2) 02/06/17 06:52 Neutrophils % (Manual) 84 % (50-75) H 02/06/17 06:52 Band Neutrophils % 8 % (0-2) H 02/06/17 06:52 Lymphocytes % (Manual) 4 % (20-40) L 02/06/17 06:52 Monocytes % (Manual) 4 % (0-10) 02/06/17 06:52 Basophils % (Manual) 1 % (0-2) 02/04/17 06:03 Toxic Granulation Present 02/06/17 06:52 Platelet Estimate Slightly increased (NORMAL) H 02/06/17 06:52 Large Platelets Present 02/06/17 06:52 Giant Platelets Present 02/06/17 06:52 Polychromasia Slight 02/06/17 06:52 Hypochromasia (manual) Slight 02/06/17 06:52 Poikilocytosis (manual Slight 02/06/17 06:52 Anisocytosis (manual) Slight 02/06/17 06:52 Target Cells Slight 02/03/17 06:05 Tear Drop Cells Slight 02/03/17 06:05 Ovalocytes Slight 02/05/17 06:24 Sofia Cells Slight 02/06/17 06:52 Schistocytes Slight 02/05/17 06:24 ESR 90 mm/hr (0-20) H 01/30/17 06:50 PT 13.8 SECONDS (9.7-12.2) H 02/04/17 11:38 INR 1.2 02/04/17 11:38 APTT 34 SECONDS (21-34) 02/04/17 11:38 D-Dimer, Quantitative 650 ng/mlDDU (0-243) H 01/18/17 16:17 Puncture Site Rb 02/05/17 08:51 pCO2 24 mm/Hg (35-45) L 02/05/17 08:51 pO2 150 mm/Hg (80-100) H 02/05/17 08:51 HCO3 25.1 mmol/L (21-28) 02/05/17 08:51 ABG pH 7.55 (7.35-7.45) H 02/05/17 08:51 ABG Total CO2 21.7 mmol/L (22-28) L 02/05/17 08:51 ABG O2 Saturation 99.7 % (95-98) H 02/05/17 08:51 ABG Base Excess 0.2 mmol/L (-2.0-3.0) 02/05/17 08:51 ABG Hemoglobin 8.1 g/dL (11.7-17.4) L 02/02/17 05:03 ABG Carboxyhemoglobin 1.5 % (0.5-1.5) 02/02/17 05:03 POC ABG HHb (Measured) 1.0 % (0.0-5.0) 02/02/17 05:03 ABG Methemoglobin 1.5 % (0.0-3.0) 02/02/17 05:03 Singh Test Na 02/05/17 08:51 ABG Potassium 4.0 mmol/L (3.6-5.2) 02/05/17 08:51 A-a O2 Difference 105.0 mm/Hg 02/05/17 08:51 Respiratory Index 0.7 02/05/17 08:51 Hgb O2 Saturation 96.0 % (95.0-98.0) 02/02/17 05:03 Sodium 134.0 mmol/l (132-148) 02/05/17 08:51 Chloride 108.0 mmol/L (98-107) H 02/05/17 08:51 Glucose 236 mg/dl (65-105) H 02/05/17 08:51 Lactate 1.5 mmol/L (0.7-2.1) 02/05/17 08:51 Liter Flow 3.0 01/22/17 19:08 Vent Mode Prvc 02/05/17 08:51 Mechanical Rate 20 02/05/17 08:51 FiO2 40.0 % 02/05/17 08:51 Tidal Volume 400 02/05/17 08:51 PEEP 5 02/05/17 08:51 Pressure Support 15 01/27/17 05:11 CPAP 5 01/27/17 05:11 Crit Value Called To Mike holcomb 02/05/17 05:03 Crit Value Called By Kaden diesel engine fitter 02/05/17 05:03 Crit Value Read Back Y 02/05/17 05:03 Blood Gas Notified Time 529 02/05/17 05:03 Sodium 128 mmol/L (132-148) L 02/06/17 06:52 Potassium 4.4 mmol/L (3.6-5.2) 02/06/17 06:52 Chloride 99 mmol/L (98-107) 02/06/17 06:52 Carbon Dioxide 18 mmol/L (22-30) L 02/06/17 06:52 Anion Gap 16 (10-20) 02/06/17 06:52 BUN 41 mg/dL (7-17) H 02/06/17 06:52 Creatinine 1.0 mg/dL (0.7-1.2) 02/06/17 06:52 Est GFR ( Amer) > 60 02/06/17 06:52 Est GFR (Non-Af Amer) 53 02/06/17 06:52 POC Glucose (mg/dL) 357 mg/dL (65-110) H 02/06/17 17:39 Random Glucose 282 mg/dL (65-105) H 02/06/17 06:52 Hemoglobin A1c 9.8 % (4.2-6.5) H 01/18/17 16:17 Lactic Acid 2.4 mmol/L (0.7-2.1) H 01/18/17 16:17 Calcium 6.6 mg/dl (8.6-10.4) L 02/06/17 06:52 Phosphorus 3.7 mg/dL (2.5-4.5) 02/06/17 06:52 Magnesium 2.0 mg/dL (1.6-2.3) 02/06/17 06:52 Iron 10 ug/dL (37-170) L 01/28/17 11:39 TIBC 209 ug/dL (250-450) L 01/28/17 11:39 % Saturation 4.78 (20-55) L 01/28/17 11:39 Total Bilirubin 1.1 mg/dL (0.2-1.3) 02/06/17 06:52 Direct Bilirubin 0.3 mg/dL (0.0-0.4) 01/30/17 06:51 AST 18 U/L (14-36) 02/06/17 06:52 ALT 26 U/L (9-52) 02/06/17 06:52 Alkaline Phosphatase 91 U/L (38-126) 02/06/17 06:52 Total Creatine Kinase 25 U/L (30-135) L 01/19/17 06:23 CK-MB (Mass) 0.72 ng/mL (0.0-3.38) 01/19/17 06:23 Troponin I 0.0230 ng/mL (0.00-0.120) 01/19/17 06:23 C-React Prot High Sens > 15.00 mg/L (1.00-3.00) H 01/30/17 06:51 NT-Pro-B Natriuret Pep 6130 pg/mL (0-900) H 01/26/17 06:26 Total Protein 5.9 g/dL (6.3-8.3) L 02/06/17 06:52 Albumin 2.6 g/dL (3.5-5.0) L 02/06/17 06:52 Globulin 3.3 gm/dL (2.2-3.9) 02/06/17 06:52 Albumin/Globulin Ratio 0.8 (1.0-2.1) L 02/06/17 06:52 Triglycerides 130 mg/dL (0-149) 01/18/17 16:17 Cholesterol 196 mg/dL (0-199) 01/18/17 16:17 LDL Cholesterol Direct 81 mg/dL (0-129) 01/18/17 16:17 HDL Cholesterol 72 mg/dL (30-70) H 01/18/17 16:17 Procalcitonin 0.06 NG/ML (0.19-0.49) L 01/18/17 22:29 Free T4 1.41 ng/dL (0.78-2.19) 01/18/17 16:17 TSH 3rd Generation 18.60 mIU/L (0.46-4.68) H 01/18/17 16:17 Arterial Blood Potassium 4.0 mmol/L (3.6-5.2) 02/05/17 08:51 Urine Color Nay (YELLOW) 02/03/17 13:09 Urine Clarity Hazy (Clear) 02/03/17 13:09 Urine pH 5.0 (5.0-8.0) 02/03/17 13:09 Ur Specific [place] 1.027 (1.003-1.030) 02/03/17 13:09 Urine Protein 2+ mg/dL (NEGATIVE) H 02/03/17 13:09 Urine Glucose (UA) Normal mg/dL (Normal) 02/03/17 13:09 Urine Ketones Negative mg/dL (NEGATIVE) 02/03/17 13:09 Urine Blood Negative (NEGATIVE) 02/03/17 13:09 Urine Nitrate Negative (NEGATIVE) 02/03/17 13:09 Urine Bilirubin Negative (NEGATIVE) 02/03/17 13:09 Urine Urobilinogen Normal mg/dL (0.2-1.0) 02/03/17 13:09 Ur Leukocyte Esterase Neg Raoul/uL (Negative) 02/03/17 13:09 Urine WBC (Auto) 554 /hpf (0-5) H 01/17/17 21:58 Urine RBC (Auto) 477 /hpf (0-3) H 01/17/17 21:58 Ur Squamous Epith Cells 8 /hpf (0-5) H 02/03/17 13:09 Amorphous Sediment Occ /ul (<OCC) H 02/03/17 13:09 Urine Bacteria Occ (<OCC) H 02/03/17 13:09 Stool Occult Blood Negative (NEGATIVE) 01/28/17 14:14 Levetiracetam 54.5 mcg/mL 01/22/17 10:55 Hepatitis A IgM Ab Negative (NEGATIVE) 02/03/17 12:09 Hep Bs Antigen Negative (NEGATIVE) 02/03/17 12:09 Hep B Core IgM Ab Negative (NEGATIVE) 02/03/17 12:09 Hepatitis C Antibody Reactive (NEGATIVE) 02/03/17 12:09 HIV 1&2 Antibody Screen Negative (NEGATIVE) 02/03/17 12:09 Blood Type O POSITIVE 02/04/17 11:38 Antibody Screen Positive 02/04/17 11:38 Antibody Identification Anti c 02/02/17 10:31 Antigen Identification c Antigen - NEGATIVE 02/02/17 10:31 IRA, Poly Interpret Negative (NEGATIVE) 02/04/17 11:38 Crossmatch See Detail 02/04/17 11:38 - Hospital Course Hospital Course: Pt has been accepted in a LTAC facilty for care home ventilator care, she remains on ventilator, arousable.she is for discharge Discharge Exam - Head Exam Head Exam: ATRAUMATIC, NORMAL INSPECTION, NORMOCEPHALIC - Eye Exam Eye Exam: Normal appearance - Respiratory Exam Respiratory Exam: Decreased Breath Sounds, Rales - Cardiovascular Exam Cardiovascular Exam: REGULAR RHYTHM, +S1, +S2 - GI/Abdominal Exam GI & Abdominal Exam: Normal Bowel Sounds - Psychiatric Exam Psychiatric exam: Flat Affect - Skin Skin Exam: Dry Discharge Plan - Follow Up Plan Condition: GOOD Disposition: [facility]
[2017-02-07] MEDS: (Novolog) Insulin Aspart, Recombinant 100 u/ml 10 ml vial SC SCH ×4 (00:34→18:23)
[2017-02-07] MEDS: Aztreonam 1 GM in Sodium Chloride 0.9% 100 ML IVPB SCH ×3 (02:19→18:22)
[2017-02-07] MEDS: Levothyroxine 25 MCG TAB PO SCH (06:15)
[2017-02-07] MEDS: metroNIDAZOLE IV 500 mg/100 ml 250 MG in Premixed IV 1 EA IVPB SCH ×2 (06:15→14:10)
[2017-02-07] MEDS: Sodium Chloride 0.9% 1,000 ML IV SCH ×2 (06:16→16:23)
[2017-02-07 06:55] LABS: BASO % 0.2 % (0.0-2.0); LYMPH # 0.8 K/uL (1.0-4.3); LYMPH % 5.3 % (20.0-40.0); MEAN CELL VOLUME 83.9 fL (81.0-99.0); MEAN CORPUSCULAR HEMOGLOBIN 28.4 pg (27.0-31.0); MEAN CORPUSCULAR HGB CONC 33.8 g/dL (33.0-37.0); MEAN PLATELET VOLUME 7.1 fL (7.2-11.7); MONO # 0.5 K/uL (0.0-0.8); MONO % 3.1 % (0.0-10.0); NEUT # 13.6 K/uL (1.8-7.0); NEUT % 91.4 % (50.0-75.0); PLATELET COUNT 374 K/uL (130-400); RBC 2.84 Mil/uL (3.80-5.20); RED CELL DISTRIBUTION WIDTH 16.9 % (11.5-14.5); WHITE BLOOD COUNT 14.9 K/uL (4.8-10.8)
[2017-02-07 07:25] LABS: ALB/GLOB RATIO 0.7 (1.0-2.1); ALBUMIN 2.3 g/dL (3.5-5.0); CALCIUM 6.3 mg/dl (8.6-10.4); MAGNESIUM 2.1 mg/dL (1.6-2.3)
[2017-02-07 08:49] LABS: LYMPHOCYTE 5 % (20-40); MONOCYTE 6 % (0-10); NEUTROPHIL 89 % (50-75); PLATELET ESTIMATE NORMAL (NORMAL); TOTAL CELLS COUNTED 100
[2017-02-07 08:50] LABS: ANISOCYTOSIS SLIGHT; HYPOCHROMIC SLIGHT; POLYCHROMIC SLIGHT; TOXIC GRANULATION PRESENT
[2017-02-07 08:51] LABS: BURR CELLS SLIGHT; OVALOCYTES SLIGHT; POIKILOCYTOSIS SLIGHT
[2017-02-07 08:53] LABS: LARGE PLATELETS PRESENT
[2017-02-07] MEDS: Linezolid 600 mg in D5W 300 ml 600 MG/300 ML BAG IVPB SCH (09:54)
[2017-02-07] MEDS: Pantoprazole 40 mg Susp UD PO SCH (14:08)
--- NOTE | 2017-02-07 15:21 | PN ---
DATE: SUBJECTIVE: The patient is currently in sinus rhythm. She is having abdominal distention. Medication takes through gastrostomy tube was withheld and the patient is going to have nasogastric tube suction once the nasogastric tube is introduced. PHYSICAL EXAMINATION: VITAL SIGNS: Blood pressure 92/41, heart rate 91, temperature 98.9, respirations 19. HEENT: Pale conjunctivae. CHEST: Bilateral rhonchi. HEART: S1 and S2, regular. EXTREMITIES: A 1+ thigh edema. LABORATORY DATA: Hemoglobin and hematocrit 8 and 23.8, white count 14.7, platelet count 374,000. SMA-7: Sodium 126, potassium 3.9, chloride 100, CO2 of 15, glucose 283, BUN 54, creatinine 1.3. ASSESSMENT: 1. Respiratory failure. 2. Paroxysmal reentrant supraventricular tachycardia. 3. Acute renal insufficiency. 4. Abdominal distention following revision of gastrostomy feeding tube placement. RECOMMENDATIONS: Continue IV Azactam at 1 g daily. Current Lopressor and Cardizem are on hold and the patient will undergo nasogastric tube suction. In the meantime, I will administer digoxin 0.125 mg daily instead. Continue IV Zyvox at 600 mg q. 12 hours. The transfer to LTAC is being postponed. Florian Crowell MD
--- NOTE | 2017-02-07 15:29 | CP.PCM.PN ---
Subjective - Date & Time of Evaluation Date of Evaluation: 02/07/17 Time of Evaluation: 13:30 - Subjective Subjective: patient seen and examined. Status post tracheostomy and PEG insertion Patient accepted at [facility] Continue present treatment Continue ventilatory support and wean as tolerated Continue antibiotics Objective - Vital Signs/Intake and Output Vital Signs (last 24 hours): Temp Pulse Resp BP Pulse Ox 98.9 F 92 H 19 89/40 L 98 02/07/17 12:00 02/07/17 14:00 02/07/17 14:00 02/07/17 13:55 02/07/17 14:00 Intake and Output: 02/07/17 02/07/17 06:59 18:59 Intake Total 1080 675 Output Total 120 1000 Balance 960 -325 - Medications Medications: Current Medications Acetaminophen (Tylenol 325mg Tab) 650 mg PO Q6 PRN PRN Reason: Pain, moderate (4-7) Last Admin: 02/03/17 20:39 Dose: 650 mg Aspirin (Aspirin Chewable) 81 mg PO DAILY [facility] Last Admin: 02/07/17 14:08 Dose: 81 mg Digoxin (Lanoxin) 0.125 mg IVP DAILY@1800 [facility] Enalapril Maleate (Vasotec) 5 mg PO DAILY [facility] Last Admin: 02/07/17 11:43 Dose: Not Given Enoxaparin Sodium (Lovenox) 40 mg SC DAILY [facility] Last Admin: 02/02/17 10:20 Dose: Not Given Levetiracetam 750 mg/ Sodium (Chloride) 107.5 mls @ 420 mls/hr IVPB Q12H [facility] Last Admin: 02/07/17 12:50 Dose: 420 mls/hr Linezolid (Zyvox 600mg/300ml D5w) 600 mg in 300 mls @ 200 mls/hr IVPB Q12 [facility] Last Admin: 02/07/17 09:54 Dose: 200 mls/hr Aztreonam 1 gm/ Sodium (Chloride) 100 mls @ 100 mls/hr IVPB Q8H [facility] Last Admin: 02/07/17 09:53 Dose: 100 mls/hr Sodium Chloride (Sodium Chloride 0.9%) 1,000 mls @ 75 mls/hr IV .[id number] [facility] Last Admin: 02/07/17 06:16 Dose: Not Given Metronidazole 250 mg/ (Miscellaneous) 50 mls @ 100 mls/hr IVPB Q8 [facility] Last Admin: 02/07/17 14:10 Dose: 100 mls/hr Insulin Aspart (Novolog) 0 unit SC Q6 [facility]OT[facility] PRN Reason: Protocol Last Admin: 02/07/17 12:49 Dose: 2 unit Insulin Glargine (Lantus) 20 unit SC [facility] Last Admin: 02/01/17 22:30 Dose: Not Given Levothyroxine Sodium (Synthroid) 25 mcg PO DAILY@0630 [facility] Last Admin: 02/07/17 06:15 Dose: 25 mcg Lorazepam (Ativan) 2 mg IVP Q6H PRN PRN Reason: Anxiety Metoclopramide HCl (Reglan) 10 mg IVP Q6H [facility] Nystatin (Nystop Topical Powder) 1 applic TOP BID [facility] Last Admin: 02/07/17 10:00 Dose: 1 applic Pantoprazole Sodium (Protonix Susp) 40 mg PO DAILY [facility] Last Admin: 02/07/17 14:08 Dose: 40 mg Rosuvastatin Calcium (Crestor) 20 mg PO [facility] Last Admin: 02/06/17 22:26 Dose: 20 mg - Labs Labs: 02/07/17 06:36 02/07/17 06:36 PT 13.8 SECONDS (9.7-12.2) H 02/04/17 11:38 INR 1.2 02/04/17 11:38 APTT 34 SECONDS (21-34) 02/04/17 11:38 Assessment and Plan (1) Respiratory failure Status: Acute (2) Pneumonia Status: Acute
[2017-02-07 16:54] VITALS: TEMP 98
[2017-02-07 17:28] VITALS: O2SAT 100
[2017-02-07] MEDS ORDERED: Digoxin 500 mcg/2ml (0.5 mg/2ml) Inj IVP SCH (18:00)
[2017-02-07 18:24] VITALS: PULSE 88
[2017-02-07 19:16] VITALS: BP 90/39; PULSE 90; RESP 20
== END 2017-02-07 19:20 | DRG 3 ==
LOC: C.ER 18:05 → C.9E 20:04 → C.3T 22:03 → C.9I 01-18 16:43
PROVIDERS: ADMIT Internal Medicine; ATTEND Internal Medicine
PROC: 5A1955Z Respiratory Ventilation, Greater than 96 Consecutive Hours (ICD-10-PCS; 2017-01-18)
PROC: 0BH17EZ Insertion of Endotracheal Airway into Trachea, Via Natural or Artificial Opening (ICD-10-PCS; 2017-01-18)
PROC: 02HV33Z Insertion of Infusion Device into Superior Vena Cava, Percutaneous Approach (ICD-10-PCS; 2017-01-18)
PROC: 5A09357 Assistance with Respiratory Ventilation, Less than 24 Consecutive Hours, Continuous Positive Airway Pressure (ICD-10-PCS; 2017-01-18)
PROC: 3E0G76Z Introduction of Nutritional Substance into Upper GI, Via Natural or Artificial Opening (ICD-10-PCS; 2017-01-20)
PROC: 30233N1 Transfusion of Nonautologous Red Blood Cells into Peripheral Vein, Percutaneous Approach (ICD-10-PCS; 2017-02-02)
PROC: 0B113F4 Bypass Trachea to Cutaneous with Tracheostomy Device, Percutaneous Approach (ICD-10-PCS; principal; 2017-02-02 11:00)
PROC: 0DH60UZ Insertion of Feeding Device into Stomach, Open Approach (ICD-10-PCS; 2017-02-02 11:00)
PROC: 0WJP0ZZ Inspection of Gastrointestinal Tract, Open Approach (ICD-10-PCS; 2017-02-04)
PROC: 0D20XUZ Change Feeding Device in Upper Intestinal Tract, External Approach (ICD-10-PCS; 2017-02-04)
DX: J96.92 Respiratory failure, unspecified with hypercapnia (principal); I50.23 Acute on chronic systolic (congestive) heart failure; J18.9 Pneumonia, unspecified organism; I47.2 Ventricular tachycardia; E46 Unspecified protein-calorie malnutrition; I27.20 Pulmonary hypertension, unspecified; I11.0 Hypertensive heart disease with heart failure; R18.8 Other ascites; E11.65 Type 2 diabetes mellitus with hyperglycemia; N39.0 Urinary tract infection, site not specified; K94.23 Gastrostomy malfunction; Z99.11 Dependence on respirator [ventilator] status; I48.91 Unspecified atrial fibrillation; J84.89 Other specified interstitial pulmonary diseases; G40.909 Epilepsy, unspecified, not intractable, without status epilepticus; Z86.73 Personal history of transient ischemic attack (TIA), and cerebral infarction without residual deficits; F41.9 Anxiety disorder, unspecified; F32.9 Major depressive disorder, single episode, unspecified; E03.9 Hypothyroidism, unspecified; R29.6 Repeated falls; B95.2 Enterococcus as the cause of diseases classified elsewhere; Z16.21 Resistance to vancomycin; D64.9 Anemia, unspecified; Z79.4 Long term (current) use of insulin